=== PATIENT | female | born 1955 | race Caucasian/White ===

== ENCOUNTER → 2017-06-30 | Outpatient (CLI) | payer OTHER ==
[~2017-06-30] MED LIST: ADVIN50/60 INH; ATOR10TA82 PO; CYCL10TA6 PO; LDDP5 TD; LISI-729 PO; MELO-84 PO; PRED-301 PO; PRVIN525X INH; SPRIN/30 INH; TRAM-10 PO; TRAZ50TA35 PO; VNTHFA/IN INH
--- NOTE | 2017-06-30 14:20 | DIAGNOSTIC IMAGING REPORT ---
(CHEST) THORAX WITHOUT CT DOSE: 191.37 mGy.cm HISTORY: Lung nodule R91.1 Pulmonary nodule, leftappt sched 06-01-17 @ 9:00 pt TECHNIQUE: Multiaxial CT images of the chest were performed without contrast. A dose lowering technique was utilized adhering to the principles of ALARA. COMPARISON: 04/14/2016 FINDINGS: Stable emphysematous change throughout both hemithoraces. Stable mild interstitial prominence. Minimal left apical nodularity considered stable. No new or interval findings. No focal infiltrative change. Stable postoperative change upper abdomen the right. Stable linear scarring right base laterally. No new or interval findings. No significant cardiac enlargement mediastinal or hilar adenopathy. IMPRESSION: 1. Stable emphysematous change including minimal unchanging low suspicion nodularity. 2. No further follow-up is suggested. 3. Stable upper abdominal postoperative change The above report was generated using voice recognition software. It may contain grammatical, syntax or spelling errors. Electronically signed by: Mendoza Smith M.D. 06/30/2017 2:18 PM Dictated Date/Time: 06/30/2017 2:15 PM
== END | disposition home or self-care (01) ==
LOC: C.CTS 13:39
PROVIDERS: ATTEND Internal Medicine Pulmonary Disease
DX: R91.1 Solitary pulmonary nodule (principal)

== ENCOUNTER 2021-11-13 10:44 | Inpatient (IN) ==
[2021-11-13] MEDS ORDERED: ALBUTEROL 0.083% NEBU SOLN 3 ML VIAL NEB STA (10:57)
[2021-11-13] MEDS ORDERED: SODIUM CHLORIDE 0.9% 500 ML IV STA (10:57)
--- NOTE | 2021-11-13 11:02 | Emergency Department Note ---
Impression & Plan COPD exacerbation, Acute and chronic respiratory failure with hypercapnia ED Provider Note NAME: GRANT LACY AGE: 66 SEX: F : 1955 ARRIVES VIA: Ambulance INFORMANT: Patient ED PROVIDER(S): Fabian Almonte DO CHIEF COMPLAINT: shortness of breath HPI: Patient is a 66-year-old female who presents the ER for shortness of breath. This started on Wednesday patient. She started Z-Miller on Wednesday. Has been getting significantly worse. Chronically wears 5 L at home secondary to severe COPD. Patient denies any headache or change in vision. No chest pain or belly pain. No nausea, vomiting, or diarrhea. No dysuria, urgency, or frequency. No other exacerbating or remitting factors. ROS: See above HPI for pertinent positives & negatives. A total of 10 systems reviewed and were otherwise negative. PAST MEDICAL HISTORY:See Below PAST SURGICAL HISTORY:See Below FAMILY HISTORY:See Below SOCIAL HISTORY:See Below HOME MEDICATIONS:See Below ALLERGIES:See Below VITALS:See Below PHYSICAL EXAMINATION: GENERAL: Sitting up in bed, alert, moderate distress, answering in one-word answers EYE EXAM: normal conjunctiva. PERRL and EOM's grossly intact. OROPHARYNX: no exudate, no erythema, lips, buccal mucosa, and tongue normal and mucous membranes are dry NECK: supple, no nuchal rigidity, no adenopathy, non-tender LUNGS: Wheezing bilaterally. Normal chest wall mechanics HEART: no murmurs, S1 normal and S2 normal ABDOMEN: abdomen soft, non-tender, normo-active bowel sounds, no masses, no rebound or guarding. UPPER EXTREMITIES: upper extremities are grossly normal. LOWER EXTREMITIES: No pitting edema. Calves are equal bilateral NEURO EXAM: Normal sensorium, cranial nerves II-XII grossly intact, normal speech, no gross weakness of arms, no gross weakness of legs. MEDICAL DECISION MAKING: Patient is a 66-year-old female who presents the ER for shortness of breath. IV was established blood work was obtained. She was only able to speak in one-word answers initially upon arrival. She was given hour-long neb as well as placed on high flow as she refused BiPAP. Labs show no significant leukocytosis. Mild anemia 11. VBG with a CO2 of 100. pH is 7.2. BMP with LFTs bilirubin was unremarkable. Troponin was negative. Pro-Trino normal. Influenza COVID and RSV were negative. Chest x-ray with opacities present. Currently on azithromycin. No change in sputum. Patient was updated bedside discussed with hospitalist admitted for further work-up. Triage Nursing notes reviewed. Limited review of prior medical records performed Vital Signs: reviewed and remarkable for tachycardic and tachypneic Differential diagnosis: ER treatment provided: See below Diagnostics interpreted by me: ECG: Sinus tachycardia rate of 121 Normal axis No PVCs QTC 434 Cardiac Monitoring: An order was placed for continuous cardiac monitoring. The monitor shows a rate of 115 with sinus rhythm. Laboratory studies: As stated above and show below. Imaging studies: Portable AP upright 1 view of the chest as described above Consultation(s): Discussed the hospitalist for further evaluation Procedures: none Critical Care: I have personally spent 32 minutes of critical care time in the direct management of this patient. This includes bedside care, interpretation of diagnostic studies, and testing, discussion with consultants, patient, and family members, and other required patient management activities. This 32 minutes is in excess of all separately billable procedures. Past Med/Surg History Medical History (Updated 11/13/21 @ 17:43 by Fabian Almonte DO) COPD, very severe History of gastroesophageal reflux (GERD) History of hyperlipidemia HTN (hypertension) Pulmonary emphysema Surgical History History of appendectomy History of tonsillectomy History of tubal ligation Family History Father Coronary heart disease Mother Pancreatic cancer Brother Brain tumor Sister Myocardial infarction Social History (Updated 11/13/21 @ 13:28 by dEna Howard PA-C) Smoking Status: Light tobacco smoker Cigarettes Per Day: lifelong smoker- now down to 2 per day; Hx Alcohol Use: No Hx Substance Use: No Preferred Language: [place]ic [place] Department Supervisor Required: No Beliefs That Will Affect Care: None Current Living Situation: Family Current Living Situation Comment: son lives upstairs Feels Safe at Home: Yes Safety Concerns: Feels Safe At This Time Allergies Allergies Allergy/AdvReac Type Severity Reaction Status Date / Time prednisone AdvReac Confusion Verified 11/13/21 13:47 Home Meds Home Medications Medication Instructions Recorded Confirmed aspirin 81 mg tablet,delayed 81 mg PO QAM 05/25/19 11/13/21 release (Adult Low Dose Aspirin) atorvastatin 10 mg tablet 10 mg PO HS 05/25/19 11/13/21 lisinopril 5 mg tablet 5 mg PO HS 05/25/19 11/13/21 loratadine 10 mg capsule 10 mg PO DAILY PRN 05/25/19 11/13/21 trazodone 50 mg tablet 75 mg PO HS 05/25/19 11/13/21 albuterol sulfate 90 mcg/actuation 2 puffs INH QID PRN 05/26/19 11/13/21 aerosol inhaler (Ventolin HFA) meloxicam 15 mg tablet 15 mg PO HS 05/26/19 11/13/21 tiotropium bromide 18 mcg capsule 1 cap INH QAM 05/26/19 11/13/21 with inhalation device (Spiriva with HandiHaler) azithromycin 250 mg tablet 250 mg PO QAM 11/13/21 11/13/21 esomeprazole magnesium 20 mg 20 mg PO QAM 11/13/21 11/13/21 capsule,delayed release fluticasone propionate 230 2 puff INHALATION Q12H 11/13/21 11/13/21 mcg-salmeterol 21 mcg/actuation HFA inhaler multivitamin 1 tab PO DAILY 11/13/21 11/13/21 tramadol 50 mg tablet 50 mg PO Q6H PRN 11/13/21 11/13/21 vitamin B complex 1 cap PO DAILY 11/13/21 11/13/21 zinc 50 mg tablet 220 mg PO DAILY 11/13/21 11/13/21 Previous Rx's Medication Instructions Recorded albuterol sulfate 2.5 mg INH Q4H PRN #540 ml 02/18/21 Results & Data (ED) Vital Signs Vital Signs - 24 hr 11/13/21 10:55 11/13/21 11:09 11/13/21 11:10 Temperature 36.8 C Temperature Source Oral Pulse Rate 130 H Pulse Rate [Left Finger] 106 H 107 H Pulse Rhythm Regular Pulse Strength Normal Respiratory Rate 38 H Respiratory Effort / Characteristics Spontaneous Accessory Muscle Use Labored Pursed Lip Retracting Short of Breath SOB on Exertion Spontaneous Non-Labored Spontaneous Respiratory Depth Retractive Respiratory Pattern Rapid/Shallow Tachypnea Blood Pressure 115/77 Blood Pressure [Right Arm] Blood Pressure Mean 89 Blood Pressure Mean [Right Arm] Blood Pressure Position Sitting Pulse Oximetry 95 100 100 Oxygen Delivery Method Nasal Cannula High Flow Nasal Cannula High Flow Nasal Cannula Oxygen Flow Rate 5 30 30 Fraction of Inspired Oxygen 45 50 Sepsis Recent Fever Within 48 Hours No Sepsis New/Unexplained Change in Mental Status No Sepsis Action Taken by Nursing Physician Notified 11/13/21 11:36 11/13/21 11:47 Temperature Temperature Source Pulse Rate Pulse Rate [Left Finger] 110 H Pulse Rhythm Pulse Strength Respiratory Rate 22 Respiratory Effort / Characteristics Nasal Flaring Retracting SOB on Exertion Respiratory Depth Respiratory Pattern Blood Pressure Blood Pressure [Right Arm] 120/58 L Blood Pressure Mean Blood Pressure Mean [Right Arm] 78 Blood Pressure Position Pulse Oximetry 100 Oxygen Delivery Method High Flow Nasal Cannula Oxygen Flow Rate Fraction of Inspired Oxygen Sepsis Recent Fever Within 48 Hours Sepsis New/Unexplained Change in Mental Status Sepsis Action Taken by Nursing Laboratory Data Result diagrams: 11/13/21 11:00 11/13/21 11:00 Lab Results 11/13/21 11/13/21 11/13/21 Range/Units 11:00 11:00 11:00 WBC 9.10 (4.8-10.8) K/uL RBC 3.73 L (4.2-5.4) M/uL Hgb 11.0 L (12.0-16.0) g/dL Hct 37.4 (37-47) % MCV 100.3 H (80-100) fL MCH 29.5 (25-34) pg MCHC 29.4 L (32-36) g/dL RDW Std Deviation 45.6 (36.4-46.3) fL RDW Coeff of Patricia 12.4 (11.5-14.5) % Plt Count 200 (130-400) K/uL MPV 9.5 (7.4-10.4) fL Immature Gran % (Auto) 0.2 % Neut % (Auto) 76.3 % Lymph % (Auto) 13.4 % [place] % (Auto) 8.6 % Eos % (Auto) 1.3 % Baso % (Auto) 0.2 % Neut # (Auto) 6.94 H (1.4-6.5) K/uL Lymph # (Auto) 1.22 (1.2-3.4) K/uL [place] # (Auto) 0.78 H (0.11-0.59) K/uL Eos # (Auto) 0.12 (0-0.5) K/uL Baso # (Auto) 0.02 (0-0.2) K/uL Immature Gran # (Auto) 0.02 (0.00-0.02) K/uL VBG pH (7.36-7.41) VBG pCO2 (38-50) mmHg VBG pO2 mmHg VBG HCO3 mmol/L VBG O2 Saturation % VBG Base Excess mEq/L Barometric Pressure mm/Hg Sodium 141 (136-145) mmol/L Potassium 3.9 (3.5-5.1) mmol/L Chloride 93 L (98-107) mmol/L Carbon Dioxide 41 H* (21-32) mmol/L Anion Gap 7 (3-11) BUN 13 (6-23) mg/dl Creatinine 0.46 L (0.6-1.2) mg/dl Est Cr Clr Drug Dosing 73.3 ml/min Est GFR ( Amer) 120.1 ml/min Est GFR (Non-Af Amer) 103.7 ml/min BUN/Creatinine Ratio 28.3 H (10-20) Glucose 121 H (70-99(Fasting)) mg/dl Calcium 9.9 (8.5-10.1) mg/dl Total Bilirubin 0.3 (0.2-1.0) mg/dl AST 22 (13-39) U/L ALT 17 (7-52) U/L Alkaline Phosphatase 78 (34-104) U/L Troponin I High Sens 7.0 (0-14) pg/ml Total Protein 7.3 (6.0-8.3) gm/dl Albumin 4.1 (3.4-5.0) gm/dl Globulin 3.2 (2.5-4.0) gm/dl Albumin/Globulin Ratio 1.3 (0.9-2) Lipase 9 L (11-82) U/L Procalcitonin 0.06 (0-0.5) ng/ml SARS-CoV-2 (PCR) (Negative) Influenza Type A (PCR) (Neg) Influenza Type B (PCR) (Neg) RSV (RT-PCR) (Neg) 05/12/22 05/12/22 Range/Units 11:05 11:10 WBC (4.8-10.8) K/uL RBC (4.2-5.4) M/uL Hgb (12.0-16.0) g/dL Hct (37-47) % MCV (80-100) fL MCH (25-34) pg MCHC (32-36) g/dL RDW Std Deviation (36.4-46.3) fL RDW Coeff of Patricia (11.5-14.5) % Plt Count (130-400) K/uL MPV (7.4-10.4) fL Immature Gran % (Auto) % Neut % (Auto) % Lymph % (Auto) % [place] % (Auto) % Eos % (Auto) % Baso % (Auto) % Neut # (Auto) (1.4-6.5) K/uL Lymph # (Auto) (1.2-3.4) K/uL [place] # (Auto) (0.11-0.59) K/uL Eos # (Auto) (0-0.5) K/uL Baso # (Auto) (0-0.2) K/uL Immature Gran # (Auto) (0.00-0.02) K/uL VBG pH 7.23 L (7.36-7.41) VBG pCO2 103 H (38-50) mmHg VBG pO2 28 mmHg VBG HCO3 42 mmol/L VBG O2 Saturation < 60.0 % VBG Base Excess 11.0 mEq/L Barometric Pressure 738.5 mm/Hg Sodium (136-145) mmol/L Potassium (3.5-5.1) mmol/L Chloride (98-107) mmol/L Carbon Dioxide (21-32) mmol/L Anion Gap (3-11) BUN (6-23) mg/dl Creatinine (0.6-1.2) mg/dl Est Cr Clr Drug Dosing ml/min Est GFR ( Amer) ml/min Est GFR (Non-Af Amer) ml/min BUN/Creatinine Ratio (10-20) Glucose (70-99(Fasting)) mg/dl Calcium (8.5-10.1) mg/dl Total Bilirubin (0.2-1.0) mg/dl AST (13-39) U/L ALT (7-52) U/L Alkaline Phosphatase (34-104) U/L Troponin I High Sens (0-14) pg/ml Total Protein (6.0-8.3) gm/dl Albumin (3.4-5.0) gm/dl Globulin (2.5-4.0) gm/dl Albumin/Globulin Ratio (0.9-2) Lipase (11-82) U/L Procalcitonin (0-0.5) ng/ml SARS-CoV-2 (PCR) NEGATIVE (Negative) Influenza Type A (PCR) Negative (Neg) Influenza Type B (PCR) Negative (Neg) RSV (RT-PCR) Negative (Neg) Administered Medications Albuterol (Albut/Ipratrop 3mg/0.5mg Neb 3 Ml Vial) 3 ml NEB Q4R JAYNE; Protocol Stop: 12/13/21 14:59 Last Admin: 11/13/21 15:46 Dose: 3 ml Documented by: [id number] Budesonide (Budesonide 0.5 Mg/2 Ml Vial (Pulmicort)) 0.5 mg NEB BIDR JAYNE Stop: 12/13/21 14:50 Last Admin: 11/13/21 15:57 Dose: Not Given Documented by: [id number] Formoterol Fumarate (Formoterol 20 Mcg/2 Ml Vial) 20 mcg NEB BID JYANE Stop: 12/13/21 14:50 Last Admin: 11/13/21 15:57 Dose: Not Given Documented by: [id number] Discontinued Medications Albuterol (Albuterol 0.083% Nebu Soln 3 Ml Vial) 2.5 mg NEB NOW STA; Protocol Stop: 11/13/21 10:58 Last Admin: 11/13/21 11:10 Dose: 2.5 mg Documented by: [id number] Albuterol (Albut/Ipratrop 3mg/0.5mg Neb 3 Ml Vial) Confirm Administered Dose 3 ml .ROUTE .STK-MED ONE Stop: 11/13/21 15:46 Last Admin: 11/13/21 15:50 Dose: Not Given Documented by: [id number] Sodium Chloride (Nss) 500 mls @ 999 mls/hr IV .Q31M STA Stop: 11/13/21 11:27 Last Infusion: 11/13/21 14:56 Dose: 0 mls/hr Documented by: [id number] Admin: 11/13/21 11:46 Dose: 999 mls/hr Documented by: [id number] Methylprednisolone (Methylprednisolone 40 Mg/Ml Vial) 40 mg IV TID JAYNE Stop: 12/13/21 13:59 Last Admin: 11/13/21 13:55 Dose: 40 mg Documented by: [id number] Tramadol HCl (Tramadol Hcl 50 Mg Tablet) 50 mg PO NOW STA Stop: 11/13/21 13:06 Last Admin: 11/13/21 13:39 Dose: 50 mg Documented by: [id number] Imaging Data Radiologist's Impression: Chest X-Ray 11/13/21 10:57 SINGLE VIEW CHEST CLINICAL HISTORY: Atypical chest pain. Dyspnea. FINDINGS: An AP, portable, upright chest radiograph is compared to study dated 12/16/2017 and correlated with chest CT dated 07/01/2020. The examination is degraded by portable technique and apical lordotic positioning. The cardiomediastinal silhouette is unremarkable noting atherosclerotic calcificatio n of the thoracic aorta. Enlargement of the central pulmonary arteries suggests pulmonary artery hypertension. Advanced emphysema and chronic interstitial thickening is similar to previous. Airspace opacities are present at both lung bases. Foci of parenchymal scarring are seen throughout both lungs. No large pleural effusion or pneumothorax is seen. The skeletal structures are osteopenic. There is chronic posttraumatic deformity of the left clavicle. Calcific tendinopathy is noted in the left shoulder. IMPRESSION: 1. Advanced emphysema. 2. Airspace opacities are present both lung bases. This could represent scarri ng/atelectasis versus a mild infectious/inflammatory pneumonitis. Clinical correlation will be required and radiographic follow-up to resolution is recommended. 3. Additional findings as above. ACT 112: Negative or not required by law. Electronically signed by: Solo Dooley M.D. 11/13/2021 11:45 AM Discharge Plan Visit Data Chief Complaint: Shortness of Breath/Dyspnea Stated Complaint: SOB ED Provider: Fabian Almonte Discharge Problem: COPD exacerbation, Acute and chronic respiratory failure with hypercapnia Patient Disposition: Admitted As Inpatient Discharge Instructions Interventions: ED Discharge Assessment Last Done: 11/13/21 14:21
[2021-11-13 11:36] LABS: HCO3 VBG 42 mmol/L; PCO2 VBG 103 mmHg (38-50); PO2 VBG 28 mmHg; pH VBG 7.23 (7.36-7.41)
[2021-11-13 11:39] LABS: Oxygen Saturation VBG < 60.0 %
--- NOTE | 2021-11-13 11:47 | XRay Report ---
SINGLE VIEW CHEST CLINICAL HISTORY: Atypical chest pain. Dyspnea. FINDINGS: An AP, portable, upright chest radiograph is compared to study dated 12/16/2017 and correlat ed with chest CT dated 07/01/2020. The examination is degraded by portable technique and apical lordo tic positioning. The cardiomediastinal silhouette is unremarkable noting atherosclerotic calcificatio n of the thoracic aorta. Enlargement of the central pulmonary arteries suggests pulmonary artery hype rtension. Advanced emphysema and chronic interstitial thickening is similar to previous. Airspace opa cities are present at both lung bases. Foci of parenchymal scarring are seen throughout both lungs. N o large pleural effusion or pneumothorax is seen. The skeletal structures are osteopenic. There is ch ronic posttraumatic deformity of the left clavicle. Calcific tendinopathy is noted in the left should er. IMPRESSION: 1. Advanced emphysema. 2. Airspace opacities are present both lung bases. This could represent scarring/atelectasis versus a mild infectious/inflammatory pneumonitis. Clinical correlation will be required and radiographic fol low-up to resolution is recommended. 3. Additional findings as above. ACT 112: Negative or not required by law. Electronically signed by: Solo Dooley M.D. 11/13/2021 11:45 AM
[2021-11-13 12:05] LABS: Basophils # (auto) 0.02 K/uL (0-0.2); Basophils % (auto) 0.2 %; Eosinophils # (auto) 0.12 K/uL (0-0.5); Eosinophils % (auto) 1.3 %; Hematocrit (blood only) 37.4 % (37-47); Immature Granulocytes # (auto) 0.02 K/uL (0.00-0.02); Immature Granulocytes % (auto) 0.2 %; Lymphocytes # (auto) 1.22 K/uL (1.2-3.4); Lymphocytes % (auto) 13.4 %; Mean Corpuscular Hemoglobin 29.5 pg (25-34); Mean Corpuscular Hgb Conc 29.4 g/dL (32-36); Mean Corpuscular Volume 100.3 fL (80-100); Mean Platelet Volume 9.5 fL (7.4-10.4); Monocytes # (auto) 0.78 K/uL (0.11-0.59); Monocytes % (auto) 8.6 %; Neutrophils # (auto) 6.94 K/uL (1.4-6.5); Neutrophils % (auto) 76.3 %; Platelet Count 200 K/uL (130-400); RDW Coefficient of Variation 12.4 % (11.5-14.5); RDW Standard Deviation 45.6 fL (36.4-46.3); Red Blood Count 3.73 M/uL (4.2-5.4)
[2021-11-13 12:35] LABS: Influenza A virus by PCR Negative (Neg); Influenza B virus by PCR Negative (Neg); RSV by PCR Negative (Neg); SARS CoV2 RNA(COVID-19) InHosp NEGATIVE (Negative)
[2021-11-13 12:43] LABS: Albumin Globulin Ratio 1.3 (0.9-2); Albumin Level 4.1 gm/dl (3.4-5.0); BUN Creatinine Ratio 28.3 (10-20); Bilirubin,Total 0.3 mg/dl (0.2-1.0); Calcium 9.9 mg/dl (8.5-10.1); Creatinine Clr Calc Pharmacy 73.3 ml/min; Est GFR (African American) 120.1 ml/min; Est GFR (Non-African American) 103.7 ml/min; Globulin 3.2 gm/dl (2.5-4.0); Potassium 3.9 mmol/L (3.5-5.1); Total Protein 7.3 gm/dl (6.0-8.3)
[2021-11-13] MEDS ORDERED: traMADol HCL 50 MG TABLET PO STA (13:05)
--- NOTE | 2021-11-13 13:34 | History & Physical Report ---
Date of Service November 13, 2021 Assessment & Plan (1) Acute and chronic respiratory failure with hypercapnia: (2) Acute respiratory acidosis: (3) COPD exacerbation: (4) HTN (hypertension): Plan: This is a 66-year-old female who has significant past medical history of chronic respiratory failure with hypercarbia on 5 L of O2, severe COPD emphysema time, T2DM, HTN, HLD, GERD, tobacco abuse who presents ED secondary to worsening shortness of breath x5 days. Acute on chronic respiratory failure with hypercapnia Acute respiratory acidosis COPD exacerbation Admit to PCU Obtain ABG, chest CT consult Pulm, pt established with [facility] IV Levaquin 500 mg daily IV Solu-Medrol 40 mg 3 times daily Budesonide neb, formoterol neb DuoNeb 4 times daily Incentive spirometry, flutter valve Obtain sputum culture Currently patient on HFNC, she confirms DNR/DNI, currently refusing bipap therapy, discussed with pt regarding acidosis will repeat ABG now, if worsening or no change will try to encourage bipap therapy HTN continue lisinopril T2DM last a1c 5.6 not on any hypoglycemics question if true t2dm vs pre dm will monitor accuchecks with steroid use, will hold coverage for now if consistently elevated will add coverage HLD continue statin DVT ppx: SQ Heparin bid DNR/DNI, pt currently refusing bipap therapy, repeat abg and will re address with patient PCP: Jono Dispo: PCU, likely to remain hospitalized > 24hrs Pt was seen and examined in collaboration with Dr. Temple, please see addendum History of Present Illness Chief Complaint: Worsening shortness of breath x5 days. Primary Care Provider: Damir De La Cruz MD This is a 66-year-old female who has significant past medical history of chronic respiratory failure with hypercarbia on 5 L of O2, severe COPD emphysema time, T2DM, HTN, HLD, GERD, tobacco abuse who presents ED secondary to worsening shortness of breath x5 days. She has chronic shortness of breath with exertion at baseline due to COPD. She has been using her Advair twice daily and at baseline only needs albuterol once weekly. Over the past 5 to 6 days she has had worsening shortness of breath with exertion and at rest, productive cough of brown purulent sputum, wheezing and today difficulty speaking secondary to shortness of breath. She has been monitoring her temperature daily and denies any documented fevers. She further denies any chills, sweats, lightheadedness, dizziness, chest pain, palpitations, hemoptysis, nausea, vomiting, abdominal pain, change in her bowel or urinary habits. She admits to a decrease in appetite secondary to inability to eat due to breathing. She has been using her albuterol nebulizer at least 2-3 times daily. She did start azithromycin on Wednesday and has had 2 total doses. Typically she states after taking antibiotic for 2 days usually her symptoms are improved and she continues to worsen. In ED patient was found to have an acute respiratory acidosis with a pH of 7.23 and a CO2 of 103. She is a known CO2 retainer and it was mentating clearly. She is a DNR and DNI in ED refused BiPAP therapy. Her CBC revealed low hemoglobin 11.0 but otherwise mostly unremarkable. Her CMP revealed chloride 93, CO2 41, glucose 121 and negative SARS-CoV-2 and influenza. Her chest x-ray was consistent with advanced emphysema and airspace opacities bibasilarly. In route she did receive IV steroids. In ED she was started on DuoNeb as well as placed on high flow nasal cannula to maintain oxygen saturation due to BiPAP refusal. Allergies Allergy/AdvReac Type Severity Reaction Status Date / Time prednisone AdvReac Confusion Verified 11/13/21 13:47 Home Medications Medication Instructions Recorded Confirmed Type aspirin 81 mg tablet,delayed 81 mg PO QAM 05/25/19 11/13/21 History release (Adult Low Dose Aspirin) atorvastatin 10 mg tablet 10 mg PO HS 05/25/19 11/13/21 History lisinopril 5 mg tablet 5 mg PO HS 05/25/19 11/13/21 History loratadine 10 mg capsule 10 mg PO DAILY PRN 05/25/19 11/13/21 History trazodone 50 mg tablet 75 mg PO HS 05/25/19 11/13/21 History albuterol sulfate 90 mcg/actuation 2 puffs INH QID PRN 05/26/19 11/13/21 History aerosol inhaler (Ventolin HFA) meloxicam 15 mg tablet 15 mg PO HS 05/26/19 11/13/21 History tiotropium bromide 18 mcg capsule 1 cap INH QAM 05/26/19 11/13/21 History with inhalation device (Spiriva with HandiHaler) albuterol sulfate 2.5 mg INH Q4H PRN #540 ml 02/18/21 11/13/21 Rx azithromycin 250 mg tablet 250 mg PO QAM 11/13/21 11/13/21 History esomeprazole magnesium 20 mg 20 mg PO QAM 11/13/21 11/13/21 History capsule,delayed release fluticasone propionate 230 2 puff INHALATION Q12H 11/13/21 11/13/21 History mcg-salmeterol 21 mcg/actuation HFA inhaler multivitamin 1 tab PO DAILY 11/13/21 11/13/21 History tramadol 50 mg tablet 50 mg PO Q6H PRN 11/13/21 11/13/21 History vitamin B complex 1 cap PO DAILY 11/13/21 11/13/21 History zinc 50 mg tablet 220 mg PO DAILY 11/13/21 11/13/21 History Past Med/Surg History Medical History (Updated 11/13/21 @ 13:31 by Edna Howard PA-C) COPD, very severe History of gastroesophageal reflux (GERD) History of hyperlipidemia HTN (hypertension) Pulmonary emphysema Surgical History History of appendectomy History of tonsillectomy History of tubal ligation Family History Father Coronary heart disease Mother Pancreatic cancer Brother Brain tumor Sister Myocardial infarction Social History (Updated 11/13/21 @ 13:28 by Edna Howard PA-C) Smoking Status: Former smoker Cigarettes Per Day: 4-5; Hx Alcohol Use: No Hx Substance Use: No Preferred Language: Kinyarwanda Feels Safe at Home: Yes Review of Systems Review of Systems: All systems reviewed & are unremarkable except as noted in HPI & below Physical Exam Physical Exam: Constitutional: Cachectic, female, lying in position, appears age, vitals as above, tachypneic, answers questions appropriately Head: Normocephalic, Atraumatic Eyes: PERRL, conjunctivae normal, anicteric sclerae ENMT: external ear and nose normal, oropharynx normal Neck: trachea midline, no thyromegaly normal visual inspection Respiratory: Increased respiratory effort, distant breath sounds throughout, decreased breath sounds at bases, no wheezes, rales or rhonchi noted. Audible wet cough. Purulent sputum visualized. No accessory muscle use Cardiovascular: RRR, no murmur, no edema Vessels: no JVD or carotid bruit Chest: normal inspection of chest Abdomen: normal bowel sounds, soft, nontender, no hepatosplenomegaly Musculoskeletal: no cyanosis or clubbing, extremities motor strength 5/5 Skin: no rashes, warm and dry normal turgor Neurologic: PERRL, EOMI, accommodation nl, no face palsy, no dysarthria CN's II-XI intact bilaterally and moves all extremities Psychiatric: A+Ox3, euthymic affect Lymphatic: no cervical or axillary lymphadenopathy : deferred Results & Data Results & [facility] ([facility]) Vital Signs (Past 12 Hours) Vital Signs Temp Pulse Pulse Resp BP BP Pulse Ox 11/13/21 13:17 89 20 100 11/13/21 11:47 110 H 22 120/58 L 11/13/21 11:36 100 11/13/21 11:10 107 H 22 100 11/13/21 11:09 106 H 22 100 11/13/21 10:55 36.8 C 130 H 38 H 115/77 95 Diagnostic Findings Chest X-Ray 11/13/21 10:57 SINGLE VIEW CHEST CLINICAL HISTORY: Atypical chest pain. Dyspnea. FINDINGS: An AP, portable, upright chest radiograph is compared to study dated 12/16/2017 and correlated with chest CT dated 07/01/2020. The examination is degraded by portable technique and apical lordotic positioning. The cardiomediastinal silhouette is unremarkable noting atherosclerotic calcification of the thoracic aorta. Enlargement of the central pulmonary arteries suggests pulmonary artery hypertension. Advanced emphysema and chronic interstitial thickening is similar to previous. Airspace opacities are present at both lung bases. Foci of parenchymal scarring are seen throughout both lungs. No large pleural effusion or pneumothorax is seen. The skeletal structures are osteopenic. There is chronic posttraumatic deformity of the left clavicle. Calcific tendinopathy is noted in the left shoulder. IMPRESSION: 1. Advanced emphysema. 2. Airspace opacities are present both lung bases. This could represent scarring/atelectasis versus a mild infectious/inflammatory pneumonitis. Clinical correlation will be required and radiographic follow-up to resolution is recomme nded. 3. Additional findings as above. ACT 112: Negative or not required by law. Electronically signed by: Solo Dooley M.D. 11/13/2021 11:45 AM Medications Administered Medication List Discontinued Medications Albuterol (Albuterol 0.083% Nebu Soln 3 Ml Vial) 2.5 mg NEB NOW STA; Protocol Stop: 11/13/21 10:58 Last Admin: 11/13/21 11:10 Dose: 2.5 mg Documented by: [id number] Sodium Chloride (Nss) 500 mls @ 999 mls/hr IV .Q31M STA Stop: 11/13/21 11:27 Last Admin: 11/13/21 11:46 Dose: 999 mls/hr Documented by: [id number] ECG Rate (beats per minute): 121 Rhythm: sinus tachycardia Additional Comments: QTC 434ms COVID-19 Results Results COVID-19 Adm Lab Results: RBC 3.73 M/uL (4.2-5.4) L 11/13/21 WBC 9.10 K/uL (4.8-10.8) 11/13/21 Hgb 11.0 g/dL (12.0-16.0) L 11/13/21 Hct 37.4 % (37-47) 11/13/21 Plt Count 200 K/uL (130-400) 11/13/21 Neutrophils (%) (Auto) 76.3 % 11/13/21 Lymphocytes (%) (Auto) 13.4 % 11/13/21 Monocytes # (Auto) 0.78 K/uL (0.11-0.59) H 11/13/21 Eosinophils # (Auto) 0.12 K/uL (0-0.5) 11/13/21 Immature Granulocyte % (Auto) 0.2 % 11/13/21 Neutrophils # (Auto) 6.94 K/uL (1.4-6.5) H 11/13/21 Lymphocytes # (Auto) 1.22 K/uL (1.2-3.4) 11/13/21 Monocytes # (Auto) 0.78 K/uL (0.11-0.59) H 11/13/21 Eosinophils # (Auto) 0.12 K/uL (0-0.5) 11/13/21 Basophils # (Auto) 0.02 K/uL (0-0.2) 11/13/21 Immature Granulocyte # (Auto) 0.02 K/uL (0.00-0.02) 11/13/21 Na 141 mmol/L (136-145) 11/13/21 K 3.9 mmol/L (3.5-5.1) 11/13/21 Cl 93 mmol/L (98-107) L 11/13/21 CO2 41 mmol/L (21-32) H* 11/13/21 Anion Gap 7 (3-11) 11/13/21 BUN 13 mg/dl (6-23) 11/13/21 Creatinine 0.46 mg/dl (0.6-1.2) L 11/13/21 BUN/Creatinine Ratio 28.3 (10-20) H 11/13/21 Glucose Level 121 mg/dl (70-99(Fasting)) H 11/13/21 Ca 9.9 mg/dl (8.5-10.1) 11/13/21 Total Bilirubin 0.3 mg/dl (0.2-1.0) 11/13/21 AST/SGOT 22 U/L (13-39) 11/13/21 ALT/SGPT 17 U/L (7-52) 11/13/21 Alkaline Phosphatase 78 U/L (34-104) 11/13/21 Total Protein 7.3 gm/dl (6.0-8.3) 11/13/21 Albumin 4.1 gm/dl (3.4-5.0) 11/13/21 Globulin 3.2 gm/dl (2.5-4.0) 11/13/21 Albumin/Globulin Ratio 1.3 (0.9-2) 11/13/21 Procalcitonin Pending 11/13/21 COVID-19 PCR NEGATIVE (Negative) 11/13/21 Influenza Virus Type A (PCR) Negative (Neg) 11/13/21 Influenza Virus Type B (PCR) Negative (Neg) 11/13/21 Chest X-Ray 11/13/21 Code Status & VTE Plan Code Status DNR/DNI VTE Prophylaxis Plan VTE Prophylaxis will be ordered: Yes Supervising Physician Co-Signing Physician Notes Patient seen and examined independently at bedside. Chart reviewed, case discussed with Edna NORRIS and agree with the documentation above. In summary, this is a patient with COPD on 5 L of home oxygen at baseline, tobacco abuse presented to the ED with shortness of breath for the past 5 days with increased sputum expectoration. States this is her first hospitalization for COPD exacerbation. Was a heavy smoker, now smokes 3 cigarettes per day (states she takes her oxygen off when she smokes; discussed about complete cessation given her severe emphysema). Uses inhalers daily, neulizers seldom but for the past week she has been using twice a day nebulizer. She hasn't seen Dr Jasso for a while now. She was given nebs and iv solumedrol by EMS and was put on HFNC in the ED. She declined BIPAP due to claustrophobia from mask. She is DNR/DNI. She received more nebs and solumedrol in ED and had significantly improved by my e ncounter. She was conversing in full sentences without any issues (previously only words per chart review). Afebrile, hemodynamically stable, AAOx3, conversing well, no tachypnea or respiratory distress noted, no increased work of breathing. Chest with decreased breath sounds but no wheezes appreciated. Tachycardia improving. No edema. Abdomen benign. Admit for COPD exacerbation. Agree with iv solumedrol, empiric levaquin, nebs, mucinex, chest physiotherapy. Follow up on sputum clx. Follow up on CT chest. Follow up on ABG- she seems to be a chronic CO2 retainer per prior ABG 12/2017 which showed CO2 60 on room air. Consider BIPAP if increased work of breathing or AMS or significant CO2 retention. Wean down oxygen as tolerated. Can likely wean down steroids to po prednisone by tomorrow. Rest as per the note above.
[2021-11-13 14:13] LABS: Base Excess ABG 12.4 mEq/L (-9-1.8); HCO3 ABG 40 mmol/L (19-24); Oxygen Saturation ABG 94.7 % (90-95); PCO2 ABG 67 mmHg (35-46); PO2 ABG 74 mmHg (80-95); pH ABG 7.39 (7.35-7.45)
[2021-11-13 14:14] LABS: Allen Test Pos (Pos)
[2021-11-13] MEDS ORDERED: ONDANSETRON INJ 2 MG/ML 2 ML VIAL IV PRN (14:51)
[2021-11-13] MEDS ORDERED: ALUMINUM/MAGNESIUM SUSP 30 ML UDC PO PRN (14:51)
[2021-11-13] MEDS ORDERED: ACETAMINOPHEN 325 MG TAB PO PRN (14:51)
[2021-11-13] MEDS ORDERED: POLYETHYLENE (MIRALAX) 17 GM PACK PO PRN (14:51)
[2021-11-13] MEDS ORDERED: GLUCOSE 40% GEL 15 GM TUBE PO PRN (14:51)
[2021-11-13] MEDS ORDERED: traZODone HCL 50 MG TAB PO PRN (14:51)
[2021-11-13] MEDS ORDERED: GLUCOSE 10 TABS/TUBE PO PRN (14:51)
[2021-11-13] MEDS ORDERED: DEXTROSE 50% 50 ML SYRINGE IV PRN (14:51)
[2021-11-13] MEDS ORDERED: MAGNESIUM HYDROXIDE SUSP 30 ML UDC PO PRN (14:51)
[2021-11-13] MEDS ORDERED: CARBOHYDRATES FOR HYPOGLYCEMIA PO PRN (14:51)
[2021-11-13] MEDS ORDERED: GLUCAGON FOR INJ 1 MG VIAL SQ PRN (14:51)
[2021-11-13] MEDS ORDERED: ALBUT/IPRATROP 3MG/0.5MG NEB 3 ML VIAL ONE (15:45)
[2021-11-13] MEDS: ALBUT/IPRATROP 3MG/0.5MG NEB 3 ML VIAL NEB SCH ×3 (15:46→22:13)
[2021-11-13] MEDS: FORMOTEROL 20 MCG/2 ML VIAL NEB SCH ×2 (15:57→19:42)
[2021-11-13] MEDS: BUDESONIDE 0.5 MG/2 ML VIAL (PULMICORT) NEB SCH ×2 (15:57→19:41)
[2021-11-13] MEDS: levoFLOXacin/D5W 500 MG/100 ML BAG IV SCH (18:02)
[2021-11-13] MEDS: guaiFENesin 600 MG TABCR PO SCH (21:02)
[2021-11-13] MEDS: methylPREDNISolone 40 MG in SYRINGE 0 ML IV SCH (21:02)
[2021-11-13] MEDS: HEPARIN SOD 5,000 UNIT/0.5 ML VIAL SQ SCH (21:03)
[2021-11-13] MEDS: traZODone HCL 50 MG TAB PO SCH (21:12)
[2021-11-14] MEDS: ALBUT/IPRATROP 3MG/0.5MG NEB 3 ML VIAL NEB SCH ×6 (02:41→22:13)
[2021-11-14] MEDS: BUDESONIDE 0.5 MG/2 ML VIAL (PULMICORT) NEB SCH ×2 (07:02→19:29)
[2021-11-14] MEDS: FORMOTEROL 20 MCG/2 ML VIAL NEB SCH ×2 (07:04→19:29)
[2021-11-14 07:59] LABS: Hematocrit (blood only) 37.9 % (37-47); Hemoglobin 11.5 g/dL (12.0-16.0); Immature Granulocytes # (auto) 0.02 K/uL (0.00-0.02); Immature Granulocytes % (auto) 0.2 %; Lymphocytes % (auto) 4.8 %; Mean Corpuscular Hemoglobin 29.8 pg (25-34); Mean Corpuscular Hgb Conc 30.3 g/dL (32-36); Mean Corpuscular Volume 98.2 fL (80-100); Mean Platelet Volume 9.1 fL (7.4-10.4); Monocytes # (auto) 0.67 K/uL (0.11-0.59); Neutrophils # (auto) 7.33 K/uL (1.4-6.5); Platelet Count 203 K/uL (130-400); RDW Coefficient of Variation 12.1 % (11.5-14.5); RDW Standard Deviation 42.7 fL (36.4-46.3); Red Blood Count 3.86 M/uL (4.2-5.4); White Blood Count 8.42 K/uL (4.8-10.8)
[2021-11-14 08:26] LABS: Albumin Globulin Ratio 1.3 (0.9-2); Albumin Level 4.1 gm/dl (3.4-5.0); BUN Creatinine Ratio 31.4 (10-20); Bilirubin,Total 0.2 mg/dl (0.2-1.0); Creatinine Clr Calc Pharmacy 61.8 ml/min; Est GFR (African American) 116.1 ml/min; Est GFR (Non-African American) 100.2 ml/min; Globulin 3.1 gm/dl (2.5-4.0); Magnesium 1.9 mg/dl (1.7-2.4); Potassium 4.4 mmol/L (3.5-5.1); Total Protein 7.2 gm/dl (6.0-8.3)
--- NOTE | 2021-11-14 08:35 | CT Scan Report ---
CT chest diagnostic wo con CLINICAL HISTORY: copd TECHNIQUE: Multidetector row helical CT of the chest was performed. Coronal and sagittal reformations were obtained. Automated dose lowering techniques and/or adjustment according to patient size were u tilized for this exam. CT DOSE: 184.08 mGy.cm Comparison: Comparison is made to CT chest 07/01/2020 FINDINGS: Lungs and pleura: Severe emphysematous changes are seen. A few foci of scarring are seen most promine ntly a 13 mm focus in the right upper lobe (series 4 image 35). Heart and pericardium: Heart size is normal. No pericardial effusion. Vessels: Unremarkable. Mediastinum and catalina: Subcentimeter lymph nodes are seen. Chest wall and lower neck: Cachexia is noted. Abdomen: Surgical clips are seen about the right kidney. Bones: Degenerative changes in the thoracic spine. IMPRESSION: Severe emphysematous changes and scarring compatible with history of COPD without acute abnormalities . ACT 112: Negative or not required by law. Electronically signed by: Eric Davidson M.D. 11/14/2021 8:33 AM
[2021-11-14] MEDS ORDERED: NON-FORMULARY MEDICATION (Zinc 50 mg Tablet) PO SCH (09:00)
[2021-11-14] MEDS: MULTIVITAMIN TAB PO SCH (09:44)
[2021-11-14] MEDS: ASPIRIN 81 MG ECTAB PO SCH (09:44)
[2021-11-14] MEDS: VITAMIN B COMPLEX TAB PO SCH (09:44)
[2021-11-14] MEDS: ATORVASTATIN 10 MG TAB PO SCH (09:44)
[2021-11-14] MEDS: MELOXICAM 7.5 MG TAB PO SCH (09:44)
[2021-11-14] MEDS: LORATADINE 10 MG TAB PO SCH (09:44)
[2021-11-14] MEDS: guaiFENesin 600 MG TABCR PO SCH ×2 (09:45→20:20)
[2021-11-14] MEDS: ZINC SULFATE 220 MG CAPSULE PO SCH (09:45)
[2021-11-14] MEDS: HEPARIN SOD 5,000 UNIT/0.5 ML VIAL SQ SCH ×2 (09:45→20:19)
[2021-11-14] MEDS: PANTOprazole 40 MG TAB PO SCH (09:45)
[2021-11-14] MEDS: lisinopril 5 MG TAB PO SCH (09:45)
[2021-11-14] MEDS: methylPREDNISolone 40 MG in SYRINGE 0 ML IV SCH ×3 (09:46→20:19)
[2021-11-14 10:17] LABS: Estimated Average Glucose 111 mg/dl; Hemoglobin A1C 5.5 % (4.5-5.6)
--- NOTE | 2021-11-14 11:06 | Pulmonary Consultation ---
Date of Consultation November 14, 2021 Assessment & Plan (1) COPD exacerbation: Continue with levofloxacin and IV steroids for today. Can transition to p.o. prednisone tomorrow at a dose of 40 mg daily. Continue Pulmicort and Perforomist. Would recommend switching her to Pulmicort and Perforomist as an outpatient with the addition of a Spiriva Respimat. She previously completed pulmonary rehab. Complete smoking cessation is advised. Patient notes she smokes 1 to 2 cigarettes/day. She has an extensive smoking history. She has a history of severe air trapping based on her PFTs from before. She may potentially be a candidate for bronchoscopic lung volume reduction as an outpatient. She will need updated PFTs. Incentive spirometry and flutter valve ordered. (2) Acute and chronic respiratory failure with hypercapnia: Patient would benefit from noninvasive ventilator such as trilogy given her chronic hypercapnic respiratory failure. She is apprehensive about starting BiPAP or noninvasive ventilation. We will try to get her adjusted to BiPAP while she is an inpatient and see how she responds. I discussed this with her bedside nurse and respiratory therapy. (3) Hypoxemia: Continue supplemental oxygen to maintain saturations of 88 to 92%. Wean oxygen as able. Thank you for the consultation. We will continue to follow along with you. History of Present Illness Attending Physician: Kika Saleh MD History of Present Illness 66-year-old female with a past medical history of COPD (FEV1 21%, DLCO 32% 11/15/2018) presenting to the hospital due to increasing shortness of breath. Patient notes cough and dark sputum. She denies any hemoptysis. Her appetite has been poor. She notes increased work of breathing with doing daily activities and walking a few steps. She is currently on 5 L of oxygen which is at her baseline. She is receiving methylprednisolone 40 mg 3 times daily and levofloxacin 500 mg daily. I reviewed the CT of her chest from ABG consistent with which revealed severe emphysematous change and scarring. Procalcitonin on admission was negative at 0.06. No significant leukocytosis seen. ABG completed yesterday revealed acute on chronic hypercapnic respiratory failure with a PCO2 of 67. Patient was trialed on BiPAP, but refused due to anxiety. She is on Advair and Spiriva as an outpatient. She denies any fevers, chills or night sweats. Allergies Allergy/AdvReac Type Severity Reaction Status Date / Time prednisone AdvReac Confusion Verified 11/13/21 13:47 Home Medications Medication Instructions Recorded Confirmed Type aspirin 81 mg tablet,delayed 81 mg PO QAM 05/25/19 11/13/21 History release (Adult Low Dose Aspirin) atorvastatin 10 mg tablet 10 mg PO HS 05/25/19 11/13/21 History lisinopril 5 mg tablet 5 mg PO HS 05/25/19 11/13/21 History loratadine 10 mg capsule 10 mg PO DAILY PRN 05/25/19 11/13/21 History trazodone 50 mg tablet 75 mg PO HS 05/25/19 11/13/21 History albuterol sulfate 90 mcg/actuation 2 puffs INH QID PRN 05/26/19 11/13/21 History aerosol inhaler (Ventolin HFA) meloxicam 15 mg tablet 15 mg PO HS 05/26/19 11/13/21 History tiotropium bromide 18 mcg capsule 1 cap INH QAM 05/26/19 11/13/21 History with inhalation device (Spiriva with HandiHaler) albuterol sulfate 2.5 mg INH Q4H PRN #540 ml 02/18/21 11/13/21 Rx azithromycin 250 mg tablet 250 mg PO QAM 11/13/21 11/13/21 History esomeprazole magnesium 20 mg 20 mg PO QAM 11/13/21 11/13/21 History capsule,delayed release fluticasone propionate 230 2 puff INHALATION Q12H 11/13/21 11/13/21 History mcg-salmeterol 21 mcg/actuation HFA inhaler multivitamin 1 tab PO DAILY 11/13/21 11/13/21 History tramadol 50 mg tablet 50 mg PO Q6H PRN 11/13/21 11/13/21 History vitamin B complex 1 cap PO DAILY 11/13/21 11/13/21 History zinc 50 mg tablet 220 mg PO DAILY 11/13/21 11/13/21 History Patient History Medical History (Updated 11/13/21 @ 17:43 by Fabian Almonte DO) COPD, very severe History of gastroesophageal reflux (GERD) History of hyperlipidemia HTN (hypertension) Pulmonary emphysema Surgical History History of appendectomy History of tonsillectomy History of tubal ligation Family History Father Coronary heart disease Mother Pancreatic cancer Brother Brain tumor Sister Myocardial infarction Social History (Updated 11/13/21 @ 13:28 by Edna Howard PA-C) Smoking Status: Light tobacco smoker Cigarettes Per Day: lifelong smoker- now down to 2 per day; Hx Alcohol Use: No Hx Substance Use: No Preferred Language: Marshallese [employer] Required: No Beliefs That Will Affect Care: None Current Living Situation: Family Current Living Situation Comment: son lives upstairs Feels Safe at Home: Yes Safety Concerns: Feels Safe At This Time Review of Systems Review of Systems: All systems reviewed & are unremarkable except as noted in HPI & below Physical Exam Constitutional: + ill appearing, + cachectic, + physical limitations and + frail appearing Eyes: PERRL, conjunctivae normal, anicteric sclerae ENMT: external ear and nose normal, oropharynx normal Neck: trachea midline, no thyromegaly Respiratory: + retractions, + uses accessory muscles, + abnormal respiratory pattern and + tachypneic Auscultation: + diminished lung sounds and + abnormal I/E ratio Cardiovascular: Heart Sounds: normal S1 and normal S2; no murmur Extremities: no edema Musculoskeletal: no cyanosis or clubbing, extremities motor strength 5/5 Skin: no rashes, warm and dry Neurologic: PERRL, EOMI, accommodation nl, no face palsy, no dysarthria Psychiatric: Orientation: alert and oriented x 3 Mood: + depressed mood Results & Data Results & Data ([facility]) Vital Signs (Past 12 Hours) Vital Signs Temp Pulse Pulse Resp BP Pulse Ox 11/14/21 08:26 36.7 C 110 H 24 144/69 H 96 11/14/21 07:04 94 H 22 100 11/14/21 04:15 36.7 C 94 H 18 120/69 100 11/14/21 00:19 99 H 11/13/21 23:52 37.1 C 91 H 18 115/57 L 94 PG Care Time/CCT Total # of Minutes Spent Total Time Spent with Patient: Total time spent is greater than 50% in coordination of care (as documented) at patient's floor/unit and/or counseling patient: Coding Level of Care Code 41613 Initial Inpt Care Lvl 3 Diagnoses COPD exacerbation J44.1 Acute and chronic respiratory failure with hypercapnia J96.22 Hypoxemia R09.02
[2021-11-14] MEDS: traMADol HCL 50 MG TABLET PO PRN ×2 (12:33→20:22)
--- NOTE | 2021-11-14 12:58 | Hospitalist Progress Note ---
Date of Service November 14, 2021 Assessment & Plan (1) Acute and chronic respiratory failure with hypercapnia: (2) Acute respiratory acidosis: (3) COPD exacerbation: (4) HTN (hypertension): Plan: This is a 66-year-old female who has significant past medical history of chronic respiratory failure with hypercarbia on 5 L of O2, severe COPD emphysema time, T2DM, HTN, HLD, GERD, tobacco abuse who presents ED secondary to worsening shortness of breath x5 days. Acute on chronic respiratory failure with hypercapnia Acute respiratory acidosis COPD exacerbation ABG showed high CO2 of [address] of the chest showed severe emphysematous changes and scarring compatible with history of COPD without any acute abnormalities Appreciate pulmonary input and recommendation IV Levaquin 500 mg daily IV Solu-Medrol 40 mg 3 times daily and will change to oral prednisone from 11/15/2021 Budesonide neb, formoterol neb DuoNeb 4 times daily Incentive spirometry, flutter valve and will adjust BiPAP setting while in the hospital Obtain sputum culture-pending Has been feeling a little better since admission We will continue current management Strongly advised to quit smoking Keep follow-up appointment with outpatient table tender sludge HTN continue lisinopril T2DM last a1c 5.6 not on any hypoglycemics question if true t2dm vs pre dm will monitor accuchecks with steroid use, will hold coverage for now if consistently elevated will add coverage HLD continue statin DVT ppx: SQ Heparin bid DNR/DNI, pt currently refusing bipap therapy, repeat abg and will re address with patient PCP: Jermaineterfeliciano Dispo: PCU, likely to remain hospitalized > 24hrs Admission and Anticipated Discharge Date Admission Date: November 13, 2021 Subjective 11/14/2021 The patient was seen and examined in telemetry unit She has been feeling a little better since admission She has end-stage COPD/emphysema and continues to smoke Denies any chest pain and/or palpitation Review of Systems Review of Systems: All systems reviewed and are unremarkable except as noted below Respiratory: Moderate shortness of breath at rest Physical Exam Physical Exam: Lying in bed with moderate shortness of breath Constitutional: + ill appearing and + thin Eyes: PERRL, conjunctivae normal, anicteric sclerae ENMT: external ear and nose normal, oropharynx normal Neck: trachea midline, no thyromegaly Respiratory: + respiratory distress (Mild to moderate) Auscultation: + diminished lung sounds and + wheezes (Occasional wheezing); no crackles Cardiovascular: Rate/Rhythm: regular rate, regular rhythm and + tachycardic Heart Sounds: normal S1, normal S2 and + murmur Extremities: no edema Chest (Breasts): Additional Comments: Has barrel chest Gastrointestinal (Abdomen): Inspection/Auscultation: normal bowel sounds; abdomen not distended Percussion/Palpation: abdomen soft; abdomen nontender Musculoskeletal: No acute arthritis in any joint Neurologic: Alert, awake and oriented x3. Generally weak. No focal sensory or no motor deficit appreciated Psychiatric: A+Ox3, euthymic affect Lymphatic: no cervical or axillary lymphadenopathy Results & Data Results & Data ([facility]) Vital Signs (Past 12 Hours) Vital Signs Temp Pulse Resp BP Pulse Ox 11/14/21 11:52 36.8 C 102 H 22 146/84 H 95 11/14/21 11:15 88 20 97 11/14/21 08:26 36.7 C 110 H 24 144/69 H 96 11/14/21 07:04 94 H 22 100 11/14/21 04:15 36.7 C 94 H 18 120/69 100 Laboratory Results Short CBC 11/14/21 Range/Units 07:18 WBC 8.42 (4.8-10.8) K/uL Hgb 11.5 L (12.0-16.0) g/dL Hct 37.9 (37-47) % Plt Count 203 (130-400) K/uL BMP 11/14/21 07:18 Sodium 140 Potassium 4.4 Chloride 95 L Carbon Dioxide 42 H* BUN 16 Creatinine 0.51 L Glucose 137 H Calcium 10.0 Liver Function 11/14/21 Range/Units 07:18 Total Bilirubin 0.2 (0.2-1.0) mg/dl AST 23 (13-39) U/L ALT 18 (7-52) U/L Alkaline Phosphatase 78 (34-104) U/L Albumin 4.1 (3.4-5.0) gm/dl Medications Administered Current Inpatient Medications Acetaminophen (Acetaminophen 325 Mg Tab) 650 mg PO Q4H PRN PRN Reason: Mild Pain or Fever Stop: 12/13/21 14:50 Al Hydrox/Mg Hydrox/Simethicone (Aluminum/Magnesium Susp 30 Ml Udc) 15 ml PO Q4H PRN PRN Reason: Dyspepsia Stop: 12/13/21 14:50 Albuterol (Albut/Ipratrop 3mg/0.5mg Neb 3 Ml Vial) 3 ml NEB Q4R [facility]; Protocol Stop: 12/13/21 14:59 Last Admin: 11/14/21 11:19 Dose: 3 ml Documented by: Aspirin (Aspirin 81 Mg Ectab) 81 mg PO DAILY [facility] Stop: 12/14/21 08:59 Last Admin: 11/14/21 09:44 Dose: 81 mg Documented by: Atorvastatin Calcium (Atorvastatin 10 Mg Tab) 10 mg PO DAILY [facility] Stop: 12/14/21 08:59 Last Admin: 11/14/21 09:44 Dose: 10 mg Documented by: Budesonide (Budesonide 0.5 Mg/2 Ml Vial (Pulmicort)) 0.5 mg NEB BIDR [facility] Stop: 12/13/21 14:50 Last Admin: 11/14/21 07:02 Dose: 0.5 mg Documented by: Dextrose (Dextrose 50% 50 Ml Syringe) 25 - 50 ml IV UD PRN; Protocol PRN Reason: Hypoglycemia Protocol Stop: 12/13/21 14:50 Formoterol Fumarate (Formoterol 20 Mcg/2 Ml Vial) 20 mcg NEB BID [facility] Stop: 12/13/21 14:50 Last Admin: 11/14/21 07:04 Dose: Not Given Documented by: Glucagon (Glucagon For Inj 1 Mg Vial) 1 mg SQ UD PRN; Protocol PRN Reason: Hypoglycemia Protocol Stop: 12/13/21 14:50 Glucose (Glucose 10 Tabs/Tube) 4 - 8 tabs PO UD PRN; Protocol PRN Reason: Hypoglycemia Protocol Stop: 12/13/21 14:50 Glucose (Glucose 40% Gel 15 Gm Tube) 15 - 30 gm PO UD PRN; Protocol PRN Reason: Hypoglycemia Protocol Stop: 12/13/21 14:50 Guaifenesin (Guaifenesin 600 Mg Tabcr) 600 mg PO BID [facility] Stop: 12/13/21 20:59 Last Admin: 11/14/21 09:45 Dose: 600 mg Documented by: Heparin Sodium (Porcine) (Heparin Sod 5,000 Unit/0.5 Ml Vial) 5,000 units SQ Q12 [facility] Stop: 12/13/21 20:59 Last Admin: 11/14/21 09:45 Dose: 5,000 units Documented by: Levofloxacin/Dextrose (Levaquin/D5w) 500 mg in 100 mls @ 100 mls/hr IV Q24H [facility]; Protocol Stop: 11/20/21 15:59 Last Infusion: 11/13/21 19:13 Dose: Infused Documented by: Methylprednisolone 40 mg/ (Syringe) 0.64 mls @ 1.5 mls/min IV TID [facility] Stop: 12/13/21 20:59 Last Admin: 11/14/21 09:46 Dose: 1.5 mls/min Documented by: Lisinopril (Lisinopril 5 Mg Tab) 5 mg PO DAILY [facility] Stop: 12/14/21 08:59 Last Admin: 11/14/21 09:45 Dose: 5 mg Documented by: Loratadine (Loratadine 10 Mg Tab) 10 mg PO DAILY [facility] Stop: 12/14/21 08:59 Last Admin: 11/14/21 09:44 Dose: 10 mg Documented by: Magnesium Hydroxide (Magnesium Hydroxide Susp 30 Ml Udc) 30 ml PO Q12H PRN PRN Reason: Constipation Stop: 12/13/21 14:50 Meloxicam (Meloxicam 7.5 Mg Tab) 15 mg PO DAILY [facility] Stop: 12/14/21 08:59 Last Admin: 11/14/21 09:44 Dose: 15 mg Documented by: Miscellaneous (Carbohydrates For Hypoglycemia ) 15 - 30 gm PO UD PRN PRN Reason: Hypoglycemia Protocol Stop: 12/13/21 14:50 Multivitamins (Multivitamin Tab) 1 tab PO QAM [facility] Stop: 12/14/21 08:59 Last Admin: 11/14/21 09:44 Dose: 1 tab Documented by: Ondansetron HCl (Ondansetron Inj 2 Mg/Ml 2 Ml Vial) 4 mg IV Q6H PRN PRN Reason: Nausea Stop: 12/13/21 14:50 Pantoprazole Sodium (Pantoprazole 40 Mg Tab) 40 mg PO DAILY [facility]; Protocol Stop: 12/14/21 08:59 Last Admin: 11/14/21 09:45 Dose: 40 mg Documented by: Polyethylene Glycol (Polyethylene (Miralax) 17 Gm Pack) 17 gm PO DAILY PRN PRN Reason: Constipation Stop: 12/13/21 14:50 Tramadol HCl (Tramadol Hcl 50 Mg Tablet) 50 mg PO Q6H PRN PRN Reason: Moderate/Severe Pain Stop: 12/13/21 16:04 Last Admin: 11/14/21 12:33 Dose: 50 mg Documented by: Trazodone HCl (Trazodone Hcl 50 Mg Tab) 75 mg PO HS [facility] Stop: 12/13/21 20:59 Last Admin: 11/13/21 21:12 Dose: 75 mg Documented by: Vitamin B Complex (Vitamin B Complex Tab) 1 tab PO DAILY [facility] Stop: 12/14/21 08:59 Last Admin: 11/14/21 09:44 Dose: 1 tab Documented by: Zinc Sulfate (Zinc Sulfate 220 Mg Capsule) 220 mg PO DAILY [facility] Stop: 12/14/21 08:59 Last Admin: 11/14/21 09:45 Dose: 220 mg Documented by:
[2021-11-14] MEDS: levoFLOXacin/D5W 500 MG/100 ML BAG IV SCH (17:47)
--- NOTE | 2021-11-14 18:06 | Electrocardiogram Report ---
Test Reason : Blood Pressure : / mmHG Vent. Rate : 121 BPM Atrial Rate : 121 BPM P-R Int : 150 ms QRS Dur : 076 ms QT Int : 306 ms P-R-T Axes : 085 069 065 degrees QTc Int : 434 ms Poor data quality, interpretation may be adversely affected Sinus tachycardia Cannot rule out Anterior infarct (cited on or before 16-DEC-2017) Abnormal ECG When compared with ECG of 16-DEC-2017 12:17, No significant change was found Confirmed by Nino Gomez ([id number]) on 11/14/2021 6:05:34 PM Referred By: REFERRED SELF Confirmed By:Nino Gomez
[2021-11-14] MEDS: traZODone HCL 50 MG TAB PO SCH (20:20)
[2021-11-15] MEDS: ALBUT/IPRATROP 3MG/0.5MG NEB 3 ML VIAL NEB SCH ×6 (03:10→22:49)
[2021-11-15 07:18] LABS: Hematocrit (blood only) 34.2 % (37-47); Hemoglobin 10.6 g/dL (12.0-16.0); Immature Granulocytes # (auto) 0.01 K/uL (0.00-0.02); Immature Granulocytes % (auto) 0.1 %; Lymphocytes # (auto) 0.67 K/uL (1.2-3.4); Lymphocytes % (auto) 7.7 %; Mean Corpuscular Hemoglobin 30.6 pg (25-34); Mean Corpuscular Volume 98.8 fL (80-100); Mean Platelet Volume 8.9 fL (7.4-10.4); Monocytes # (auto) 0.84 K/uL (0.11-0.59); Monocytes % (auto) 9.6 %; Neutrophils # (auto) 7.23 K/uL (1.4-6.5); Neutrophils % (auto) 82.6 %; Platelet Count 198 K/uL (130-400); RDW Coefficient of Variation 12.1 % (11.5-14.5); RDW Standard Deviation 43.8 fL (36.4-46.3); Red Blood Count 3.46 M/uL (4.2-5.4); White Blood Count 8.75 K/uL (4.8-10.8)
[2021-11-15] MEDS: FORMOTEROL 20 MCG/2 ML VIAL NEB SCH ×2 (07:49→19:52)
[2021-11-15] MEDS: BUDESONIDE 0.5 MG/2 ML VIAL (PULMICORT) NEB SCH ×2 (07:50→19:51)
[2021-11-15 07:51] LABS: Calcium 9.5 mg/dl (8.5-10.1); Creatinine Clr Calc Pharmacy 64.1 ml/min; Est GFR (African American) 116.9 ml/min; Est GFR (Non-African American) 100.9 ml/min; Magnesium 1.9 mg/dl (1.7-2.4); Phosphorus 3.8 mg/dl (2.5-4.9); Potassium 4.3 mmol/L (3.5-5.1)
[2021-11-15] MEDS: methylPREDNISolone 40 MG in SYRINGE 0 ML IV SCH (09:05)
[2021-11-15] MEDS: ATORVASTATIN 10 MG TAB PO SCH (09:05)
[2021-11-15] MEDS: ASPIRIN 81 MG ECTAB PO SCH (09:05)
[2021-11-15] MEDS: guaiFENesin 600 MG TABCR PO SCH ×2 (09:05→20:38)
[2021-11-15] MEDS: HEPARIN SOD 5,000 UNIT/0.5 ML VIAL SQ SCH ×2 (09:05→20:37)
[2021-11-15] MEDS: VITAMIN B COMPLEX TAB PO SCH (09:06)
[2021-11-15] MEDS: MELOXICAM 7.5 MG TAB PO SCH (09:06)
[2021-11-15] MEDS: lisinopril 5 MG TAB PO SCH (09:06)
[2021-11-15] MEDS: LORATADINE 10 MG TAB PO SCH (09:06)
[2021-11-15] MEDS: PANTOprazole 40 MG TAB PO SCH (09:06)
[2021-11-15] MEDS: ZINC SULFATE 220 MG CAPSULE PO SCH (09:06)
[2021-11-15] MEDS: MULTIVITAMIN TAB PO SCH (09:06)
[2021-11-15] MEDS: traMADol HCL 50 MG TABLET PO PRN ×2 (09:13→20:41)
--- NOTE | 2021-11-15 10:13 | Pulmonology Progress Note ---
Date of Service November 15, 2021 Assessment & Plan (1) COPD exacerbation: Plan: I discontinued the IV Solu-Medrol and transition her to 30 mg p.o. prednisone. Continue levofloxacin. Continue Pulmicort and Perforomist. Would recommend switching her to Pulmicort and Perforomist as an outpatient with the addition of a Spiriva Respimat. She previously completed pulmonary rehab. Complete smoking cessation is advised. Patient notes she smokes 1 to 2 cigarettes/day. She has an extensive smoking history. She has a history of severe air trapping based on her PFTs from before. She may potentially be a candidate for bronchoscopic lung volume reduction as an outpatient. She will need updated PFTs. Incentive spirometry and flutter valve ordered. (2) Acute and chronic respiratory failure with hypercapnia: Plan: Patient would benefit from noninvasive ventilator such as trilogy given her chronic hypercapnic respiratory failure. Continue trials of BiPAP while inpatient. If she tolerates, she should be prescribed a trilogy upon discharge. (3) Hypoxemia: Plan: Continue supplemental oxygen to maintain saturations of 88 to 92%. Wean oxygen as able. Plan: Thank you for the consultation. We will continue to follow along with you. Admission and Anticipated Discharge Date Admission Date: November 13, 2021 Subjective Patient feels that her shortness of breath is improved. She denies any chest pain, fevers or chills. She only tolerated BiPAP for approximately 1 hour last night. She does want to continue trying the BiPAP. Review of Systems Review of Systems: All systems reviewed & are unremarkable except as noted in HPI & below Physical Exam Constitutional: + ill appearing, + cachectic, + physical limitations and + frail appearing Eyes: PERRL, conjunctivae normal, anicteric sclerae ENMT: external ear and nose normal, oropharynx normal Neck: trachea midline, no thyromegaly Respiratory: + retractions, + uses accessory muscles and + abnormal respiratory pattern; not tachypneic Auscultation: + diminished lung sounds and + abnormal I/E ratio Cardiovascular: Heart Sounds: normal S1 and normal S2; no murmur Extremities: no edema Musculoskeletal: no cyanosis or clubbing, extremities motor strength 5/5 Skin: no rashes, warm and dry Neurologic: PERRL, EOMI, accommodation nl, no face palsy, no dysarthria Psychiatric: Orientation: alert and oriented x 3 Mood: + depressed mood Results & Data Results & Data ([facility]) Vital Signs (Past 12 Hours) Vital Signs Temp Pulse Pulse Resp BP Pulse Ox 11/15/21 07:52 87 18 92 11/15/21 07:32 37.0 C 80 16 126/71 100 11/15/21 04:29 36.7 C 110 H 20 133/73 94 11/14/21 23:19 85 11/14/21 23:10 36.9 C 86 16 122/71 99 11/14/21 22:16 93 H 16 92 PG Care Time/CCT Total # of Minutes Spent Total Time Spent with Patient: Total time spent is greater than 50% in coordination of care (as documented) at patient's floor/unit and/or counseling patient: Coding Level of Care Code 42508 Subseq Hosp Care Lvl 2 Diagnoses COPD exacerbation J44.1 Acute and chronic respiratory failure with hypercapnia J96.22 Hypoxemia R09.02
[2021-11-15] MEDS: levoFLOXacin 500 MG TAB PO SCH (12:38)
--- NOTE | 2021-11-15 13:36 | Hospitalist Progress Note ---
Date of Service November 15, 2021 Assessment & Plan (1) Acute and chronic respiratory failure with hypercapnia: (2) Acute respiratory acidosis: (3) COPD exacerbation: (4) HTN (hypertension): Plan: This is a 66-year-old female who has significant past medical history of chronic respiratory failure with hypercarbia on 5 L of O2, severe COPD emphysema time, T2DM, HTN, HLD, GERD, tobacco abuse who presents ED secondary to worsening shortness of breath x5 days. Acute on chronic respiratory failure with hypercapnia Acute respiratory acidosis COPD exacerbation ABG showed high CO2 of [address] of the chest showed severe emphysematous changes and scarring compatible with history of COPD without any acute abnormalities Appreciate pulmonary input and recommendation IV Levaquin 500 mg daily IV Solu-Medrol 40 mg 3 times daily and will change to oral prednisone from 11/15/2021 Budesonide neb, formoterol neb DuoNeb 4 times daily Incentive spirometry, flutter valve and will adjust BiPAP setting while in the hospital Obtain sputum culture-pending Has been feeling a little better since admission We will continue current management Strongly advised to quit smoking-has not been smoking since last week Keep follow-up appointment with outpatient race starter Clinically a little better and likely to need Trilogy on discharge Methylprednisone has been changed to oral prednisone HTN continue lisinopril T2DM last a1c 5.6 not on any hypoglycemics question if true t2dm vs pre dm will monitor accuchecks with steroid use, will hold coverage for now if consistently elevated will add coverage HLD continue statin DVT ppx: SQ Heparin bid DNR/DNI, pt currently refusing bipap therapy, repeat abg and will re address with patient PCP: Jono Dispo: PCU, likely to remain hospitalized > 24hrs Admission and Anticipated Discharge Date Admission Date: November 13, 2021 Subjective 11/14/2021 The patient was seen and examined in telemetry unit She has been feeling a little better since admission She has end-stage COPD/emphysema and continues to smoke Denies any chest pain and/or palpitation 11/15/2021 The patient was seen and examined in telemetry unit She has been feeling a little better but remains acutely short of breath with increasing CO2 level Denies any chest pain, fever and or chills Review of Systems Review of Systems: All systems reviewed and are unremarkable except as noted below Respiratory: Moderate shortness of breath at rest Physical Exam Physical Exam: Lying in bed with moderate shortness of breath Constitutional: + ill appearing and + thin Eyes: PERRL, conjunctivae normal, anicteric sclerae ENMT: external ear and nose normal, oropharynx normal Neck: trachea midline, no thyromegaly Respiratory: + respiratory distress (Mild to moderate) Auscultation: + dimi nished lung sounds and + wheezes (Occasional wheezing); no crackles Cardiovascular: Rate/Rhythm: regular rate, regular rhythm and + tachycardic Heart Sounds: normal S1, normal S2 and + murmur Extremities: no edema Gastrointestinal (Abdomen): Inspection/Auscultation: normal bowel sounds; abdomen not distended Percussion/Palpation: abdomen soft; abdomen nontender Musculoskeletal: No acute arthritis in any joint Neurologic: Alert, awake and oriented x3. No focal sensory or no motor deficit appreciated Psychiatric: A+Ox3, euthymic affect Lymphatic: no cervical or axillary lymphadenopathy Results & Data Results & Data ([facility]) Vital Signs (Past 12 Hours) Vital Signs Temp Pulse Pulse Resp BP Pulse Ox 11/15/21 11:21 37.0 C 84 22 127/74 98 11/15/21 10:59 81 20 97 11/15/21 10:56 79 18 98 11/15/21 08:00 65 11/15/21 07:52 87 18 92 11/15/21 07:32 37.0 C 80 16 126/71 100 11/15/21 04:29 36.7 C 110 H 20 133/73 94 Laboratory Results Short CBC 11/15/21 Range/Units 06:39 WBC 8.75 (4.8-10.8) K/uL Hgb 10.6 L (12.0-16.0) g/dL Hct 34.2 L (37-47) % Plt Count 198 (130-400) K/uL BMP 11/15/21 06:39 Sodium 141 Potassium 4.3 Chloride 96 L Carbon Dioxide 43 H* BUN 20 Creatinine 0.50 L Glucose 127 H Calcium 9.5 Medications Administered Current Inpatient Medications Acetaminophen (Acetaminophen 325 Mg Tab) 650 mg PO Q4H PRN PRN Reason: Mild Pain or Fever Stop: 12/13/21 14:50 Al Hydrox/Mg Hydrox/Simethicone (Aluminum/Magnesium Susp 30 Ml Udc) 15 ml PO Q4H PRN PRN Reason: Dyspepsia Stop: 12/13/21 14:50 Albuterol (Albut/Ipratrop 3mg/0.5mg Neb 3 Ml Vial) 3 ml NEB Q4R [facility]AY[facility]; Protocol Stop: 12/13/21 14:59 Last Admin: 11/15/21 10:55 Dose: 3 ml Documented by: Aspirin (Aspirin 81 Mg Ectab) 81 mg PO DAILY [facility] Stop: 12/14/21 08:59 Last Admin: 11/15/21 09:05 Dose: 81 mg Documented by: Atorvastatin Calcium (Atorvastatin 10 Mg Tab) 10 mg PO DAILY [facility] Stop: 12/14/21 08:59 Last Admin: 11/15/21 09:05 Dose: 10 mg Documented by: Budesonide (Budesonide 0.5 Mg/2 Ml Vial (Pulmicort)) 0.5 mg NEB BIDR [facility] Stop: 12/13/21 14:50 Last Admin: 11/15/21 07:50 Dose: 0.5 mg Documented by: Dextrose (Dextrose 50% 50 Ml Syringe) 25 - 50 ml IV UD PRN; Protocol PRN Reason: Hypoglycemia Protocol Stop: 12/13/21 14:50 Formoterol Fumarate (Formoterol 20 Mcg/2 Ml Vial) 20 mcg NEB BID [facility] Stop: 12/13/21 14:50 Last Admin: 11/15/21 07:49 Dose: 20 mcg Documented by: Glucagon (Glucagon For Inj 1 Mg Vial) 1 mg SQ UD PRN; Protocol PRN Reason: Hypoglycemia Protocol Stop: 12/13/21 14:50 Glucose (Glucose 10 Tabs/Tube) 4 - 8 tabs PO UD PRN; Protocol PRN Reason: Hypoglycemia Protocol Stop: 12/13/21 14:50 Glucose (Glucose 40% Gel 15 Gm Tube) 15 - 30 gm PO UD PRN; Protocol PRN Reason: Hypoglycemia Protocol Stop: 12/13/21 14:50 Guaifenesin (Guaifenesin 600 Mg Tabcr) 600 mg PO BID [facility] Stop: 12/13/21 20:59 Last Admin: 11/15/21 09:05 Dose: 600 mg Documented by: Heparin Sodium (Porcine) (Heparin Sod 5,000 Unit/0.5 Ml Vial) 5,000 units SQ Q12 [facility] Stop: 12/13/21 20:59 Last Admin: 11/15/21 09:05 Dose: 5,000 units Documented by: Levofloxacin (Levofloxacin 500 Mg Tab) 500 mg PO DAILY [facility]; Protocol Stop: 11/18/21 08:59 Last Admin: 11/15/21 12:38 Dose: 500 mg Documented by: Lisinopril (Lisinopril 5 Mg Tab) 5 mg PO DAILY [facility] Stop: 12/14/21 08:59 Last Admin: 11/15/21 09:06 Dose: 5 mg Documented by: Loratadine (Loratadine 10 Mg Tab) 10 mg PO DAILY [facility] Stop: 12/14/21 08:59 Last Admin: 11/15/21 09:06 Dose: 10 mg Documented by: Magnesium Hydroxide (Magnesium Hydroxide Susp 30 Ml Udc) 30 ml PO Q12H PRN PRN Reason: Constipation Stop: 12/13/21 14:50 Last Admin: 11/15/21 09:04 Dose: 30 ml Documented by: Meloxicam (Meloxicam 7.5 Mg Tab) 15 mg PO DAILY [facility] Stop: 12/14/21 08:59 Last Admin: 11/15/21 09:06 Dose: 15 mg Documented by: Miscellaneous (Carbohydrates For Hypoglycemia ) 15 - 30 gm PO UD PRN PRN Reason: Hypoglycemia Protocol Stop: 12/13/21 14:50 Multivitamins (Multivitamin Tab) 1 tab PO QAM [facility] Stop: 12/14/21 08:59 Last Admin: 11/15/21 09:06 Dose: 1 tab Documented by: Ondansetron HCl (Ondansetron Inj 2 Mg/Ml 2 Ml Vial) 4 mg IV Q6H PRN PRN Reason: Nausea Stop: 12/13/21 14:50 Pantoprazole Sodium (Pantoprazole 40 Mg Tab) 40 mg PO DAILY [facility]; Protocol Stop: 12/14/21 08:59 Last Admin: 11/15/21 09:06 Dose: 40 mg Documented by: Polyethylene Glycol (Polyethylene (Miralax) 17 Gm Pack) 17 gm PO DAILY PRN PRN Reason: Constipation Stop: 12/13/21 14:50 Prednisone (Prednisone 10 Mg Tablet) 30 mg PO DAILY [facility] Stop: 12/16/21 08:59 Tramadol HCl (Tramadol Hcl 50 Mg Tablet) 50 mg PO Q6H PRN PRN Reason: Moderate/Severe Pain Stop: 12/13/21 16:04 Last Admin: 11/15/21 09:13 Dose: 50 mg Documented by: Trazodone HCl (Trazodone Hcl 50 Mg Tab) 75 mg PO HS [facility] Stop: 12/13/21 20:59 Last Admin: 11/14/21 20:20 Dose: 75 mg Documented by: Vitamin B Complex (Vitamin B Complex Tab) 1 tab PO DAILY [facility] Stop: 12/14/21 08:59 Last Admin: 11/15/21 09:06 Dose: 1 tab Documented by: Zinc Sulfate (Zinc Sulfate 220 Mg Capsule) 220 mg PO DAILY [facility] Stop: 12/14/21 08:59 Last Admin: 11/15/21 09:06 Dose: 220 mg Documented by:
[2021-11-15] MEDS: traZODone HCL 50 MG TAB PO SCH (20:37)
[2021-11-16] MEDS: ALBUT/IPRATROP 3MG/0.5MG NEB 3 ML VIAL NEB SCH ×6 (02:44→22:35)
[2021-11-16 06:06] LABS: Eosinophils # (auto) 0.05 K/uL (0-0.5); Eosinophils % (auto) 0.7 %; Hemoglobin 10.9 g/dL (12.0-16.0); Immature Granulocytes # (auto) 0.02 K/uL (0.00-0.02); Immature Granulocytes % (auto) 0.3 %; Lymphocytes # (auto) 1.77 K/uL (1.2-3.4); Lymphocytes % (auto) 24.4 %; Mean Corpuscular Hemoglobin 30.2 pg (25-34); Mean Corpuscular Hgb Conc 30.3 g/dL (32-36); Mean Corpuscular Volume 99.7 fL (80-100); Mean Platelet Volume 8.7 fL (7.4-10.4); Monocytes # (auto) 0.94 K/uL (0.11-0.59); Neutrophils # (auto) 4.46 K/uL (1.4-6.5); Neutrophils % (auto) 61.6 %; Platelet Count 191 K/uL (130-400); RDW Coefficient of Variation 12.2 % (11.5-14.5); RDW Standard Deviation 44.4 fL (36.4-46.3); Red Blood Count 3.61 M/uL (4.2-5.4); White Blood Count 7.24 K/uL (4.8-10.8)
[2021-11-16 06:28] LABS: BUN Creatinine Ratio 41.8 (10-20); Calcium 9.3 mg/dl (8.5-10.1); Creatinine Clr Calc Pharmacy 57.2 ml/min; Est GFR (African American) 113.3 ml/min; Est GFR (Non-African American) 97.7 ml/min; Potassium 3.8 mmol/L (3.5-5.1)
[2021-11-16] MEDS: BUDESONIDE 0.5 MG/2 ML VIAL (PULMICORT) NEB SCH ×2 (08:09→20:20)
[2021-11-16] MEDS: FORMOTEROL 20 MCG/2 ML VIAL NEB SCH ×2 (08:09→20:19)
--- NOTE | 2021-11-16 09:09 | Pulmonology Progress Note ---
Date of Service November 16, 2021 Assessment & Plan (1) COPD exacerbation: Plan: Continue p.o. prednisone for 5 to 7 days. Continue levofloxacin. Continue Pulmicort and Perforomist. Would recommend switching her to Pulmicort and Perforomist as an outpatient with the addition of a Spiriva Respimat. She previously completed pulmonary rehab. Complete smoking cessation is advised. Patient notes she smokes 1 to 2 cigarettes/day. She has an extensive smoking history. She has a history of severe air trapping based on her PFTs from before. She may potentially be a candidate for bronchoscopic lung volume reduction as an outpatient. She will need updated PFTs. Incentive spirometry and flutter valve ordered. Patient seems to be tolerating BiPAP therapy notes low up titration of use. (2) Acute and chronic respiratory failure with hypercapnia: Plan: Due to chronic hypercapnic respiratory failure consequent to COPD the patient now requires a noninvasive home ventilator. Bilevel therapy with and without a rate would be ineffective as patient requires a volume targeted mode. Ventilation is required to decrease work of breathing and improve pulmonary status. Interruption of ventilator support would lead to decline of health status. NIMV settings should be AVAPS-AE; Breath rate: auto; Inspiratory time: auto; Sigh: off; Tidal Volume: [350-450], PS min: [4-10 PS max: 12-20]; EPAP min: [6- 10]; EPAP max: [10-16]; AVAPS rate: [14 during sleep and as needed] (3) Hypoxemia: Plan: Continue supplemental oxygen to maintain saturations of 88 to 92%. Wean oxygen as able. Plan: Thank you for the consultation. We will continue to follow along with you. Admission and Anticipated Discharge Date Admission Date: November 13, 2021 Subjective Patient seen and examined. She is feeling better today and less short of breath. She tolerated the BiPAP yesterday for approximately 3 hours. She is interested in pursuing noninvasive ventilation as an outpatient. She denies any cough this morning. No fevers or chills. Review of Systems Review of Systems: All systems reviewed & are unremarkable except as noted in HPI & below Physical Exam Constitutional: + ill appearing, + cachectic, + physical limitations and + frail appearing Eyes: PERRL, conjunctivae normal, anicteric sclerae ENMT: external ear and nose normal, oropharynx normal Neck: trachea midline, no thyromegaly Respiratory: normal respiratory effort and + abnormal respiratory pattern; no retractions, does not use accessory muscles and not tachypneic Auscultation: + diminished lung sounds and + abnormal I/E ratio Cardiovascular: Heart Sounds: normal S1 and normal S2; no murmur Extremities: no edema Musculoskeletal: no cyanosis or clubbing, extremities motor strength 5/5 Skin: no rashes, warm and dry Neurologic: PERRL, EOMI, accommodation nl, no face palsy, no dysarthria Psychiatric: Orientation: alert and oriented x 3 Mood: + depressed mood Results & Data Results & Data ([facility]) Vital Signs (Past 12 Hours) Vital Signs Temp Pulse Pulse Resp BP Pulse Ox 11/16/21 08:11 97 H 22 92 11/16/21 07:28 37.1 C 77 18 122/80 94 11/16/21 05:19 37.0 C 80 24 111/84 97 11/16/21 01:36 71 11/16/21 01:28 37.0 C 82 20 131/74 100 11/15/21 22:53 86 16 99 11/15/21 22:51 69 16 100 PG Care Time/CCT Total # of Minutes Spent Total Time Spent with Patient: Total time spent is greater than 50% in coordination of care (as documented) at patient's floor/unit and/or counseling patient: Coding Level of Care Code 71878 Subseq Hosp Care Lvl 2 Diagnoses COPD exacerbation J44.1 Acute and chronic respiratory failure with hypercapnia J96.22 Hypoxemia R09.02
[2021-11-16] MEDS: predniSONE 10 MG TABLET PO SCH (09:10)
[2021-11-16] MEDS: HEPARIN SOD 5,000 UNIT/0.5 ML VIAL SQ SCH ×2 (09:10→21:13)
[2021-11-16] MEDS: guaiFENesin 600 MG TABCR PO SCH ×2 (09:10→21:13)
[2021-11-16] MEDS: ATORVASTATIN 10 MG TAB PO SCH (09:10)
[2021-11-16] MEDS: lisinopril 5 MG TAB PO SCH (09:10)
[2021-11-16] MEDS: PANTOprazole 40 MG TAB PO SCH (09:11)
[2021-11-16] MEDS: MULTIVITAMIN TAB PO SCH (09:11)
[2021-11-16] MEDS: ASPIRIN 81 MG ECTAB PO SCH (09:11)
[2021-11-16] MEDS: LORATADINE 10 MG TAB PO SCH (09:11)
[2021-11-16] MEDS: levoFLOXacin 500 MG TAB PO SCH (09:12)
[2021-11-16] MEDS: MELOXICAM 7.5 MG TAB PO SCH (09:12)
[2021-11-16] MEDS: ZINC SULFATE 220 MG CAPSULE PO SCH (09:12)
[2021-11-16] MEDS: VITAMIN B COMPLEX TAB PO SCH (09:12)
[2021-11-16] MEDS: traMADol HCL 50 MG TABLET PO PRN ×2 (09:19→21:11)
--- NOTE | 2021-11-16 16:53 | Hospitalist Progress Note ---
Date of Service November 16, 2021 Assessment & Plan (1) Acute and chronic respiratory failure with hypercapnia: (2) Acute respiratory acidosis: (3) COPD exacerbation: (4) HTN (hypertension): Plan: This is a 66-year-old female who has significant past medical history of chronic respiratory failure with hypercarbia on 5 L of O2, severe COPD emphysema time, T2DM, HTN, HLD, GERD, tobacco abuse who presents ED secondary to worsening shortness of breath x5 days. Acute on chronic respiratory failure with hypercapnia Acute respiratory acidosis COPD exacerbation ABG showed high CO2 of [address] of the chest showed severe emphysematous changes and scarring compatible with history of COPD without any acute abnormalities Appreciate pulmonary input and recommendation IV Levaquin 500 mg daily She was started on IV Solu-Medrol 40 mg 3 times daily then transition to oral prednisone from 11/15/2021 Continue Budesonide neb, formoterol neb, and DuoNeb 4 times daily prn Continue Incentive spirometry, flutter valve Pulm on board recommended trilogy on discharge Sputum cx no growth Continue strongly advise for smoking cessation Continue prednisone taper course HTN continue lisinopril T2DM Most recent hgb a1c 5.5 on 11/14/21 not on any hypoglycemics question if true t2dm vs pre dm Continue monitor accuchecks with steroid use if consistently elevated will add coverage HLD continue statin DVT ppx: SQ Heparin bid Code status DNR/DNI PCP: Jono Dispo: Possible discharge in am Admission and Anticipated Discharge Date Admission Date: November 13, 2021 Subjective Pt was seen and examined for follow up of SOB Lying in bed with no acute respiratory distress Pt said that her breathing is much better She said that she is back to her baseline She said that she slept with the bipap last night for 3 hrs and another 2 hrs early Nurse said that her oxygen level drops to 90% with exertion Currently denies any chest pain, palpitation, dizziness and fever Review of Systems Review of Systems: All systems reviewed & are unremarkable except as noted in Subjective Physical Exam Physical Exam: General- No acute distress Head- atraumatic Eyes- PERRL, EOMI, ENT- oropharynx clear Neck- supple, no JVD Lungs- diminished BS Heart- regular rhythm; no murmur Abdomen- normal bowel sounds, soft, nontender Extremities- no calf tenderness Neuro- alert, oriented x 3; PERRL, EOMI; no facial palsy; no dysarthria Skin- warm & dry Results & Data Results & Data ([facility]) Vital Signs (Past 12 Hours) Vital Signs Temp Pulse Resp BP Pulse Ox Pulse Ox Pulse Ox 11/16/21 15:40 37.2 C 90 20 106/72 99 11/16/21 15:18 85 18 97 11/16/21 13:25 85 L 11/16/21 11:31 37.1 C 107 H 20 140/81 96 11/16/21 11:20 101 H 20 93 11/16/21 10:26 93 91 11/16/21 08:11 97 H 22 92 11/16/21 07:28 37.1 C 77 18 122/80 94 11/16/21 05:19 37.0 C 80 24 111/84 97 Pulse Ox 11/16/21 15:40 11/16/21 15:18 11/16/21 13:25 11/16/21 11:31 11/16/21 11:20 11/16/21 10:26 85 L 11/16/21 08:11 11/16/21 07:28 11/16/21 05:19
[2021-11-16] MEDS: traZODone HCL 50 MG TAB PO SCH (21:10)
[2021-11-17] MEDS: ALBUT/IPRATROP 3MG/0.5MG NEB 3 ML VIAL NEB SCH ×5 (02:46→19:55)
[2021-11-17 07:04] LABS: Base Excess VBG 15.7 mEq/L; HCO3 VBG 44 mmol/L; PCO2 VBG 78 mmHg (38-50); PO2 VBG 20 mmHg; pH VBG 7.37 (7.36-7.41)
[2021-11-17 07:15] LABS: Oxygen Saturation VBG < 60.0 %
[2021-11-17] MEDS: BUDESONIDE 0.5 MG/2 ML VIAL (PULMICORT) NEB SCH ×2 (07:21→21:00)
[2021-11-17] MEDS: FORMOTEROL 20 MCG/2 ML VIAL NEB SCH ×2 (07:21→20:59)
[2021-11-17] MEDS: VITAMIN B COMPLEX TAB PO SCH (08:27)
[2021-11-17] MEDS: MELOXICAM 7.5 MG TAB PO SCH (08:27)
[2021-11-17] MEDS: levoFLOXacin 500 MG TAB PO SCH (08:27)
[2021-11-17] MEDS: PANTOprazole 40 MG TAB PO SCH (08:27)
[2021-11-17] MEDS: guaiFENesin 600 MG TABCR PO SCH ×2 (08:27→21:31)
[2021-11-17] MEDS: MULTIVITAMIN TAB PO SCH (08:28)
[2021-11-17] MEDS: ZINC SULFATE 220 MG CAPSULE PO SCH (08:28)
[2021-11-17] MEDS: ASPIRIN 81 MG ECTAB PO SCH (08:28)
[2021-11-17] MEDS: predniSONE 10 MG TABLET PO SCH (08:28)
[2021-11-17] MEDS: ATORVASTATIN 10 MG TAB PO SCH (08:28)
[2021-11-17] MEDS: LORATADINE 10 MG TAB PO SCH (08:28)
[2021-11-17] MEDS: lisinopril 5 MG TAB PO SCH (08:28)
[2021-11-17] MEDS: HEPARIN SOD 5,000 UNIT/0.5 ML VIAL SQ SCH ×2 (08:29→21:38)
[2021-11-17] MEDS: traMADol HCL 50 MG TABLET PO PRN ×2 (08:39→21:37)
[2021-11-17] MEDS: acetaZOLAMIDE 250 MG in DEXTROSE 5% 100 ML IV SCH ×2 (10:13→22:56)
--- NOTE | 2021-11-17 17:16 | Hospitalist Progress Note ---
Date of Service November 17, 2021 Assessment & Plan (1) Acute and chronic respiratory failure with hypercapnia: (2) Acute respiratory acidosis: (3) COPD exacerbation: (4) HTN (hypertension): Plan: This is a 66-year-old female who has significant past medical history of chronic respiratory failure with hypercarbia on 5 L of O2, severe COPD emphysema time, T2DM, HTN, HLD, GERD, tobacco abuse who presents ED secondary to worsening shortness of breath x5 days. Acute on chronic respiratory failure with hypercapnia Acute respiratory acidosis COPD exacerbation ABG showed high CO2 of [address] of the chest showed severe emphysematous changes and scarring compatible with history of COPD without any acute abnormalities Appreciate pulmonary input and recommendation IV Levaquin 500 mg daily She was started on IV Solu-Medrol 40 mg 3 times daily then transition to oral prednisone from 11/15/2021 Continue Budesonide neb, formoterol neb, and DuoNeb 4 times daily prn Continue Incentive spirometry, flutter valve Pulm on board recommended trilogy on discharge Sputum cx no growth Strongly advise for smoking cessation Continue prednisone taper course Clinically improve significantly Script signed and given to case management for the trilogy HTN continue lisinopril T2DM Most recent hgb a1c 5.5 on 11/14/21 not on any hypoglycemics question if true t2dm vs pre dm Continue monitor accuchecks with steroid use if consistently elevated will add coverage HLD continue statin DVT ppx: SQ Heparin bid Code status DNR/DNI PCP: Jono Dispo: Possible discharge tomorrow Admission and Anticipated Discharge Date Admission Date: November 13, 2021 Subjective Pt was seen and examined for follow up of SOB Sitting in chair with no acute respiratory distress Pt said that her breathing continues to improves She said that she was able to use the bipap for 4hrs last night Currently denies any chest pain, palpitation, dizziness and fever Review of Systems 2 Review of Systems: All systems reviewed & are unremarkable except as noted in Subjective Physical Exam Physical Exam: General- No acute distress Head- atraumatic Eyes- PERRL, EOMI, ENT- oropharynx clear Neck- supple, no JVD Lungs- diminished BS Heart- regular rhythm; no murmur Abdomen- normal bowel sounds, soft, nontender Extremities- no calf tenderness Neuro- alert, oriented x 3; PERRL, EOMI; no facial palsy; no dysarthria Skin- warm & dry Results & Data Results & Data ([facility]) Vital Signs (Past 12 Hours) Vital Signs Temp Pulse Pulse Resp BP Pulse Ox 11/17/21 16:10 37.2 C 88 24 121/82 96 11/17/21 15:32 92 H 18 98 11/17/21 15:19 91 H 11/17/21 11:28 37.2 C 108 H 18 117/80 98 11/17/21 11:08 92 H 16 93 11/17/21 08:00 68 11/17/21 07:43 37.0 C 81 20 119/70 96 11/17/21 07:21 75 22 100
[2021-11-17] MEDS: traZODone HCL 50 MG TAB PO SCH (21:29)
[2021-11-18] MEDS: ALBUT/IPRATROP 3MG/0.5MG NEB 3 ML VIAL NEB SCH ×4 (00:19→11:11)
[2021-11-18] MEDS: BUDESONIDE 0.5 MG/2 ML VIAL (PULMICORT) NEB SCH (07:15)
[2021-11-18] MEDS: FORMOTEROL 20 MCG/2 ML VIAL NEB SCH (07:15)
[2021-11-18] MEDS: PANTOprazole 40 MG TAB PO SCH (08:46)
[2021-11-18] MEDS: predniSONE 10 MG TABLET PO SCH (08:46)
[2021-11-18] MEDS: ATORVASTATIN 10 MG TAB PO SCH (08:46)
[2021-11-18] MEDS: guaiFENesin 600 MG TABCR PO SCH (08:46)
[2021-11-18] MEDS: LORATADINE 10 MG TAB PO SCH (08:46)
[2021-11-18] MEDS: lisinopril 5 MG TAB PO SCH (08:47)
[2021-11-18] MEDS: ASPIRIN 81 MG ECTAB PO SCH (08:47)
[2021-11-18] MEDS: MELOXICAM 7.5 MG TAB PO SCH (08:47)
[2021-11-18] MEDS: HEPARIN SOD 5,000 UNIT/0.5 ML VIAL SQ SCH (08:48)
--- NOTE | 2021-11-18 10:20 | Pulmonology Progress Note ---
Date of Service November 18, 2021 Assessment & Plan (1) COPD exacerbation: Plan: Continue p.o. prednisone for 5 to 7 days. Continue for total of 7 days. Continue Pulmicort and Perforomist. Would recommend switching her to Pulmicort and Perforomist as an outpatient with the addition of a Spiriva Respimat. She previously completed pulmonary rehab. Complete smoking cessation is advised. Patient notes she smokes 1 to 2 cigarettes/day. She has an extensive smoking history. She has a history of severe air trapping based on her PFTs from before. She may potentially be a candidate for bronchoscopic lung volume reduction as an outpatient. She will need updated PFTs. Incentive spirometry and flutter valve ordered. Patient seems to be tolerating BiPAP therapy notes low up titration of use. (2) Acute and chronic respiratory failure with hypercapnia: Plan: Patient notes that she is unable to afford her trilogy co-pay. We will touch base with case management to see what they could do. She received 2 doses of acetazolamide yesterday. We will recheck a VBG today. (3) Hypoxemia: Plan: Continue supplemental oxygen to maintain saturations of 88 to 92%. Wean oxygen as able. Plan: Thank you for the consultation. She is stable for discharge from my standpoint. Admission and Anticipated Discharge Date Admission Date: November 13, 2021 Subjective Patient seen and examined. She feels that she is near her baseline from a respiratory standpoint. She is using BiPAP 4 to 5 hours/day. She is very eager to go home. She notes that she is going to have trouble affording her trilogy ventilator. Review of Systems Review of Systems: All systems reviewed & are unremarkable except as noted in HPI & below Physical Exam Constitutional: + ill appearing, + cachectic, + physical limitations and + frail appearing Eyes: PERRL, conjunctivae normal, anicteric sclerae ENMT: external ear and nose normal, oropharynx normal Neck: trachea midline, no thyromegaly Respiratory: normal respiratory effort and + abnormal respiratory pattern; no retractions, does not use accessory muscles and not tachypneic Auscultation: + diminished lung sounds and + abnormal I/E ratio Cardiovascular: Heart Sounds: normal S1 and normal S2; no murmur Extremities: no edema Musculoskeletal: no cyanosis or clubbing, extremities motor strength 5/5 Skin: no rashes, warm and dry Neurologic: PERRL, EOMI, accommodation nl, no face palsy, no dysarthria Psychiatric: Orientation: alert and oriented x 3 Mood: + depressed mood Results & Data Results & Data ([facility]) Vital Signs (Past 12 Hours) Vital Signs Temp Pulse Pulse Resp BP Pulse Ox 11/18/21 07:57 36.5 C 101 H 16 109/63 93 11/18/21 07:15 96 H 18 94 11/18/21 03:58 36.5 C 92 H 18 106/55 L 92 11/18/21 03:03 93 H 93 H 16 96 11/18/21 00:22 72 18 99 11/18/21 00:20 72 18 99 11/17/21 23:56 37.1 C 74 18 111/54 L 100 11/17/21 22:30 83 PG Care Time/CCT Total # of Minutes Spent Total Time Spent with Patient: Total time spent is greater than 50% in coordination of care (as documented) at patient's floor/unit and/or counseling patient: Coding Level of Care Code 71737 Subseq Hosp Care Lvl 2 Diagnoses COPD exacerbation J44.1 Acute and chronic respiratory failure with hypercapnia J96.22 Hypoxemia R09.02
[2021-11-18 12:07] LABS: Base Excess VBG 6.4 mEq/L; Oxygen Saturation VBG 84.6 %; pH VBG 7.39 (7.36-7.41)
--- NOTE | 2021-11-18 13:21 | Discharge Summary ---
Date of Service November 18, 2021 Admission HPI Per Admitting Provider This is a 66-year-old female who has significant past medical history of chronic respiratory failure with hypercarbia on 5 L of O2, severe COPD emphysema time, T2DM, HTN, HLD, GERD, tobacco abuse who presents ED secondary to worsening shortness of breath x5 days. She has chronic shortness of breath with exertion at baseline due to COPD. She has been using her Advair twice daily and at baseline only needs albuterol once weekly. Over the past 5 to 6 days she has had worsening shortness of breath with exertion and at rest, productive cough of brown purulent sputum, wheezing and today difficulty speaking secondary to shortness of breath. She has been monitoring her temperature daily and denies any documented fevers. She further denies any chills, sweats, lightheadedness, dizziness, chest pain, palpitations, hemoptysis, nausea, vomiting, abdominal pain, change in her bowel or urinary habits. She admits to a decrease in appetite secondary to inability to eat due to breathing. She has been using her albuterol nebulizer at least 2-3 times daily. She did start azithromycin on Wednesday and has had 2 total doses. Typically she states after taking antibiotic for 2 days usually her symptoms are improved and she continues to worsen. In ED patient was found to have an acute respiratory acidosis with a pH of 7.23 and a CO2 of 103. She is a known CO2 retainer and it was mentating clearly. She is a DNR and DNI in ED refused BiPAP therapy. Her CBC revealed low hemoglobin 11.0 but otherwise mostly unremarkable. Her CMP revealed chloride 93, CO2 41, glucose 121 and negative SARS-CoV-2 and influenza. Her chest x-ray was consistent with advanced emphysema and airspace opacities bibasilarly. In route she did receive IV steroids. In ED she was started on DuoNeb as well as placed on high flow nasal cannula to maintain oxygen saturation due to BiPAP refusal. Admission Exam Per Admitting Provider Constitutional: Cachectic, female, lying in position, appears age, vitals as above, tachypneic, answers questions appropriately Head: Normocephalic, Atraumatic Eyes: PERRL, conjunctivae normal, anicteric sclerae ENMT: external ear and nose normal, oropharynx normal Neck: trachea midline, no thyromegaly normal visual inspection Respiratory: Increased respiratory effort, distant breath sounds throughout, decreased breath sounds at bases, no wheezes, rales or rhonchi noted. Audible wet cough. Purulent sputum visualized. No accessory muscle use Cardiovascular: RRR, no murmur, no edema Vessels: no JVD or carotid bruit Chest: normal inspection of chest Abdomen: normal bowel sounds, soft, nontender, no hepatosplenomegaly Musculoskeletal: no cyanosis or clubbing, extremities motor strength 5/5 Skin: no rashes, warm and dry normal turgor Neurologic: PERRL, EOMI, accommodation nl, no face palsy, no dysarthria CN's II-XI intact bilaterally and moves all extremities Psychiatric: A+Ox3, euthymic affect Lymphatic: no cervical or axillary lymphadenopathy : deferred Principal Diagnosis Acute and chronic respiratory failure with hypercapnia: Acute respiratory acidosis: COPD exacerbation: HTN (hypertension): Diabetes Discharge Exam General- No acute distress Head- atraumatic Eyes- PERRL, EOMI, ENT- oropharynx clear Neck- supple, no JVD Lungs- diminished BS Heart- regular rhythm; no murmur Abdomen- normal bowel sounds, soft, nontender Extremities- no calf tenderness Neuro- alert, oriented x 3; PERRL, EOMI; no facial palsy; no dysarthria Skin- warm & dry Discharge Data Allergies Allergy/AdvReac Type Severity Reaction Status Date / Time prednisone AdvReac Confusion Verified 11/13/21 13:47 Consultations 11/13/21 12:23 ED Decision to Admit Stat 11/13/21 14:51 Consult Pulmonology Routine Ordered Studies 11/13/21 13:04 CT chest diagnostic wo con Stat CT chest diagnostic wo con CLINICAL HISTORY: copd TECHNIQUE: Multidetector row helical CT of the chest was performed. Coronal and sagittal reformations were obtained. Automated dose lowering techniques and/or adjustment according to patient size were utilized for this exam. CT DOSE: 184.08 mGy.cm Comparison: Comparison is made to CT chest 07/01/2020 FINDINGS: Lungs and pleura: Severe emphysematous changes are seen. A few foci of scarring are seen most prominently a 13 mm focus in the right upper lobe (series 4 image 35). Heart and pericardium: Heart size is normal. No pericardial effusion. Vessels: Unremarkable. Mediastinum and [place]: Subcentimeter lymph nodes are seen. Chest wall and lower neck: Cachexia is noted. Abdomen: Surgical clips are seen about the right kidney. Bones: Degenerative changes in the thoracic spine. IMPRESSION: Severe emphysematous changes and scarring compatible with history of COPD without acute abnormalities. ACT 112: Negative or not required by law. Electronically signed by: Eric Davidson M.D. 11/14/2021 8:33 AM Dictated:11/14/21 0824 Transcribed: 11/14/21823 SINGLE VIEW CHEST CLINICAL HISTORY: Atypical chest pain. Dyspnea. FINDINGS: An AP, portable, upright chest radiograph is compared to study dated 12/16/2017 and correlated with chest CT dated 07/01/2020. The examination is degraded by portable technique and apical lordotic positioning. The cardiomediastinal silhouette is unremarkable noting atherosclerotic calcification of the thoracic aorta. Enlargement of the central pulmonary cydney rose suggests pulmonary artery hypertension. Advanced emphysema and chronic interstitial thickening is similar to previous. Airspace opacities are present at both lung bases. Foci of parenchymal scarring are seen throughout both lungs. No large pleural effusion or pneumothorax is seen. The skeletal structures are osteopenic. There is chronic posttraumatic deformity of the left clavicle. Calcific tendinopathy is noted in the left shoulder. IMPRESSION: 1. Advanced emphysema. 2. Airspace opacities are present both lung bases. This could represent scarring/atelectasis versus a mild infectious/inflammatory pneumonitis. Clinical correlation will be required and radiographic follow-up to resolution is recommended. 3. Additional findings as above. ACT 112: Negative or not required by law. Electronically signed by: Solo Dooley M.D. 11/13/2021 11:45 AM Dictated:11/13/21 1142 Transcribed: 11/13/21 1142 Hospital Course (1) Acute and chronic respiratory failure with hypercapnia: (2) Acute respiratory acidosis: (3) COPD exacerbation: (4) HTN (hypertension): This is a 66-year-old female who has significant past medical history of chronic respiratory failure with hypercarbia on 5 L of O2, severe COPD emphysema time, T2DM, HTN, HLD, GERD, tobacco abuse who presents ED secondary to worsening shortness of breath x5 days. Acute on chronic respiratory failure with hypercapnia Acute respiratory acidosis COPD exacerbation ABG showed high CO2 of [address] of the chest showed severe emphysematous changes and scarring compatible with history of COPD without any acute abnormalities Appreciate pulmonary input and recommendation IV Levaquin 500 mg daily She was started on IV Solu-Medrol 40 mg 3 times daily then transition to oral prednisone from 11/15/2021 Continue Budesonide neb, formoterol neb, and DuoNeb 4 times daily prn Continue Incentive spirometry, flutter valve Pulm on board recommended trilogy on discharge Sputum cx no growth Strongly advise for smoking cessation Continue prednisone taper course Clinically improve significantly Script signed and given to case management for the trilogy Will discharge on Pulmicort and Perforomist, Spiriva Continue supplemental oxygen to maintain saturations of 88 to 92%. Continue incentive spirometry and flutter valve HTN continue lisinopril T2DM Most recent hgb a1c 5.5 on 11/14/21 not on any hypoglycemics question if true t2dm vs pre dm Continue monitor accuchecks with steroid use if consistently elevated will add coverage HLD continue statin DVT ppx: SQ Heparin bid Code status DNR/DNI PCP: Jono Dispo: Possible discharge today Total Time Total Time Spent Total Time Spent (In Minutes): 35 minutes Discharge Plan Discharge Items Patient Disposition: Home - Home Health Services Reason For Visit: COPD EXACERBATION, ACUTE ON CHRONIC RESPIRATORY FA Discharge Diagnosis: Acute and chronic respiratory failure with hypercapnia: Acute respiratory acidosis: COPD exacerbation: HTN (hypertension): Diabetes Activity: Resume your previous activity Non-emergency contact: Primary Care Provider and Statement Clerks Supervisor Call non-emergency contact if: you have any medication questions and your symptoms worsen Follow-up/Referrals: Damir De La Cruz MD [Primary Care Provider] - (Date & Time 11/20/2021 11:20 AM Provider Damir De La Cruz MD Department [facility] ) Diet: Carb Consistent or DM2 Addtl Attending Provider Instructions: You were admitted at [facility] for shortness of breath. You were starting on bipap machine to help with your breathing. Follow up with your primary care provider on 11/20/2021 @ 11:20 AM at the [facility] Follow up with your pulmonology ( please call for the follow up appointment) Continue Incentive spirometry and flutter valve Continue oxygen supplement to keep oxygen saturation between 88 to 92% Continue to use the trilogy at night and as needed during the day Counseling on smoking cessation Fall precaution Pending Studies at Discharge: No Stand-Alone Forms: My [facility], Smoking Cessation Medications and DC Order Prescriptions: New budesonide 0.5 mg/2 mL Suspension For Nebulization 0.5 mg NEB BIDR 30 Days Qty: 60 RF: 0 formoterol fumarate [Perforomist] 20 mcg/2 mL Solution For Nebulization 20 mcg NEB BID 30 Days Qty: 1 RF: 0 guaifenesin 200 mg tablet 200 mg PO TID PRN (Reason: cough) Qty: 30 RF: 0 prednisone 10 mg Tablet 30 mg PO DAILY 4 Days Qty: 12 RF: 0 Continued albuterol sulfate 2.5 mg /3 mL (0.083 %) solution for nebulization 2.5 mg INH Q4H PRN (Reason: shortness of breath or wheezing) Qty: 540 RF: 11 aspirin [Adult Low Dose Aspirin] 81 mg tablet,delayed release (DR/EC) 81 mg PO QAM RF: 0 atorvastatin 10 mg tablet 10 mg PO HS RF: 0 trazodone 50 mg tablet 75 mg PO HS RF: 0 lisinopril 5 mg tablet 5 mg PO HS RF: 0 loratadine 10 mg capsule 10 mg PO DAILY PRN (Reason: allergies) RF: 0 meloxicam 15 mg tablet 15 mg PO HS RF: 0 albuterol sulfate [Ventolin HFA] 90 mcg/actuation HFA aerosol inhaler 2 puffs INH QID PRN (Reason: sob) RF: 0 multivitamin Tablet 1 tab PO DAILY RF: 0 vitamin B complex Capsule 1 cap PO DAILY RF: 0 esomeprazole magnesium 20 mg Capsule,Delayed Release(Dr/Ec) 20 mg PO QAM RF: 0 tramadol 50 mg tablet 50 mg PO Q6H PRN (Reason: Pain) RF: 0 zinc 50 mg Tablet 220 mg PO DAILY RF: 0 Discontinued fluticasone propion-salmeterol 230-21 mcg/actuation Hfa Aerosol Inhaler 2 puff INHALATION Q12H RF: 0 azithromycin 250 mg tablet 250 mg PO QAM RF: 0 No Action Spiriva Respimat 2.5 mcg/actuation mist 2 inh inhalation QAM Qty: 4 RF: 2 Discharge Orders: Discharge Order (Routine); Ordered 11/18/21 Ordered By: Krystal Gonzales Admission Data Admit Date/Time: 11/13/21 12:46 Attending Provider: Krystal Gonzales Admit Provider: Michael Temple Primary Care Provider: Damir De La Cruz Other Providers: Michael Temple ; Noah Thomas ; Kika Saleh ; [place] Other Interventions: Discharge Summary Assessment (RN) Last Done: 11/18/21 13:41
[2021-11-18] MEDS: MULTIVITAMIN TAB PO SCH (14:07)
[2021-11-18] MEDS: VITAMIN B COMPLEX TAB PO SCH (14:07)
[2021-11-18] MEDS: ZINC SULFATE 220 MG CAPSULE PO SCH (14:07)
== END 2021-11-18 14:22 | disposition home health service (06) | DRG 190 ==
LOC: ED 10:44 → 2E 12:46 → SUATTDRO 12:46 → 2E 14:21

== ENCOUNTER 2023-01-10 18:59 | Inpatient (IN) ==
[2023-01-10] MEDS ORDERED: ALBUT/IPRATROP 3MG/0.5MG NEB 3 ML VIAL NEB ONE (19:05)
--- NOTE | 2023-01-10 19:13 | Emergency Department Note ---
Impression & Plan Shortness of breath, Chronic hypercapnic respiratory failure, Acute exacerbation of chronic obstructive pulmonary disease ED Provider Note HISTORY OF PRESENT ILLNESS: Patient is a 67-year-old female presenting with shortness of breath. Patient reports has been having progressively worsening shortness of breath for the last 4 days. Reports has been using continuous breathing treatments at home without any relief in symptoms. She normally wears 6 L nasal cannula at baseline, but has been increasing up to 7 throughout the day. She wears a trilogy at nighttime. Denies any DVT or PE history. She is on a baby aspirin daily. Reports a nonproductive cough. Reports she takes azithromycin 3 times a week and last took a dose 2 days ago. Denies any recent steroid use. Denies any chest pain, just reports that it feels very tight and difficult to breathe. Denies any recent fevers or recent sick contact exposures ROS: as above PHYSICAL EXAM: Constitutional: Patient appears in no acute distress. HENT: Head: Normocephalic and atraumatic. Eyes: EOMI, PERRL Mouth/Throat: Mucous membranes moist. Neck: Trachea midline. Neck supple. Cardiovascular: Tachycardic with regular rhythm. No murmurs, rubs or gallops. Intact distal pulses. Pulmonary/Chest: Barrel chested. Patient on 7 L nasal cannula. Tachypneic. Decreased breath sounds in bilateral lung bases. She has expiratory wheezes in the bilateral apical lung wu. Abdominal: BS +. Abdomen soft, no tenderness, rebound or guarding. Musculoskeletal: No edema, tenderness or deformity noted. Skin: Warm and dry. No rash, erythema, pallor or cyanosis Psychiatric: Appropriate mood and affect for situation. Neurological: Alert and keenly responsive. CN II-XII grossly intact, moving all extremities equally and fully. MDM: - Vitals signs showed tachycardia. - History obtained via patient. Patient presents with shortness of breath. Patient reports progressively worsening shortness of breath over the last 4 days. She is using continuous breathing treatments at home without much relief in symptoms. She has been increasing her supplemental oxygen without any imp rovement in her symptoms. Reports she could not catch her breath today, so she called 911. Denies any chest pain, but reports her chest feels very tight and difficult to breathe. Denies any DVT or PE history. - Chronic conditions affecting care: COPD (on 6L NC); HTN; HLD - Differential diagnoses include, but are not limited to: Congestive heart failure; acute coronary syndrome; COPD/asthma exacerbation; pulmonary edema; pulmonary embolism; pneumonia; pneumothorax; viral syndrome - Order placed for continuous cardiac monitoring. At this time, monitor showed rate of 109 bpm with normal sinus rhythm, per my interpretation. - External medical records reviewed. EMS run sheet reviewed. Patient was given 125 mg Solu-Medrol in route. Given a DuoNeb treatment in route. - EKG reviewed by myself showed normal sinus rhythm. Rate tachycardic at 100 bpm. QTc 405. No acute ischemic changes. - Laboratory workup interpreted by myself showed normal WBC; stable electrolytes; normal troponin; normal BNP - Biofire negative - CXR negative for pneumonia, per my interpretation. - VBG showed hypercarbic respiratory acidosis. Patient was agreeable to getting placed on BiPAP. - Patient given continuous albuterol treatment in ER. - IV doxycycline and rocephin ordered for antibiotic coverage. - Repeat VBG after 1 hour on BiPAP shows improved hypercarbia. - Discussion was had with web content & social media manager about patient's case and need for admission - Hospitalist, Dr. Donato, consulted for admission. - [facility] ASSESSMENT AND PLAN: Diagnosis: shortness of breath; COPD exacerbation; hypercarbic respiratory failure Plan: admit Past Med/Surg History Medical History (Updated 01/10/23 @ 21:22 by Jil Osborn MD) Acute and chronic respiratory failure with hypercapnia Acute respiratory acidosis Chronic hypercapnic respiratory failure Chronic hypoxemic respiratory failure COPD exacerbation COPD, very severe History of gastroesophageal reflux (GERD) History of hyperlipidemia HTN (hypertension) Hypoxemia Pulmonary emphysema Therapeutic drug monitoring Tobacco abuse counseling Surgical History History of appendectomy History of tonsillectomy History of tubal ligation Family History Father Coronary heart disease Mother Pancreatic cancer Brother Brain tumor Sister Myocardial infarction Social History (Updated 11/13/21 @ 13:28 by Edna Howard PA-C) Smoking Status: Never smoker Cigarettes Per Day: lifelong smoker- now down to 2 per day; Hx Alcohol Use: No Hx Substance Use: No Preferred Language: Lao Communication Ability: Effective 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 Beliefs That Will Affect Care: None Current Living Situation: Family Current Living Situation Comment: son lives upstairs Feels Safe at Home: Yes Assistive Devices: Oxygen - Continuous Allergies Allergies Allergy/AdvReac Type Severity Reaction Status Date / Time prednisone AdvReac Intermediate Confusion/PSYCH Verified 01/10/23 20:39 COMPLICATIONS PER [facility] MED LIST Home Meds Home Medications Medication Instructions Recorded Confirmed aspirin 81 mg tablet,delayed 81 mg PO QAM 05/25/19 01/10/23 release (Adult Low Dose Aspirin) atorvastatin 10 mg tablet 10 mg PO HS 05/25/19 01/10/23 lisinopril 5 mg tablet 5 mg PO QAM 05/25/19 01/10/23 loratadine 10 mg capsule 10 mg PO DAILY PRN allergies 05/25/19 01/10/23 trazodone 50 mg tablet 75 mg PO HS 05/25/19 01/10/23 albuterol sulfate 90 mcg/actuation 2 puffs inhalation Q4H PRN 05/26/19 01/10/23 aerosol inhaler (Ventolin HFA) Shortness Of Breath meloxicam 15 mg tablet 15 mg PO QAM 05/26/19 01/10/23 esomeprazole magnesium 20 mg 20 mg PO DAILYBB 11/13/21 01/10/23 capsule,delayed release multivitamin 1 tab PO DAILY 11/13/21 01/10/23 tramadol 50 mg tablet 50 mg PO Q6H PRN Pain, Moderate 11/13/21 01/10/23 vitamin B complex 1 cap PO DAILY 11/13/21 01/10/23 budesonide 0.5 mg/2 mL suspension 0.5 mg inhalation BID 01/10/23 01/10/23 for nebulization guaifenesin 600 mg tablet, 600 mg PO BID 01/10/23 01/10/23 extended release 12 hr (Mucinex) zinc sulfate 50 mg zinc (220 mg) 50 mg PO DAILY 01/10/23 01/10/23 tablet Previous Rx's Medication Instructions Recorded albuterol sulfate 2.5 mg/3 mL 2.5 mg (3 mL) inhalation Q4H PRN 02/18/21 (0.083 %) solution for nebulization shortness of breath or wheezing #540 mL Portable Oxygen #1 ea 07/17/22 tiotropium bromide 2.5 2 inh inhalation QAM #4 grams 12/07/22 mcg/actuation mist for inhalation (Spiriva Respimat) arformoterol 15 mcg/2 mL solution 2 ml inhalation BID #120 mL 01/07/23 for nebulization Results & Data (ED) Vital Signs Vital Signs - 24 hr 01/10/23 19:07 01/10/23 19:07 01/10/23 19:13 Temperature 37.2 C Temperature Source Temporal Artery Scan Pulse Rate 101 H Pulse Rate [Finger] Respiratory Rate 22 Respiratory Effort / Characteristics Non-Labored Spontaneous Respiratory Depth Normal Blood Pressure 136/99 Blood Pressure [Left Arm] Blood Pressure Mean 111 Blood Pressure Mean [Left Arm] Pulse Oximetry 100 100 100 Oxygen Delivery Method Nasal Cannula Nasal Cannula Nasal Cannula Oxygen Flow Rate 6 6 6 Fraction of Inspired Oxygen Sepsis Recent Fever Within 48 Hours No Sepsis New/Unexplained Change in Mental Status N/A Sepsis Action Taken by Nursing No Action Required 01/10/23 19:08 01/10/23 19:25 01/10/23 19:48 Temperature Temperature Source Pulse Rate 120 H 117 H Pulse Rate [Finger] 102 H Respiratory Rate 22 18 Respiratory Effort / Characteristics Spontaneous Short of Breath Respiratory Depth Blood Pressure Blood Pressure [Left Arm] Blood Pressure Mean Blood Pressure Mean [Left Arm] Pulse Oximetry 100 98 Oxygen Delivery Method Nasal Cannula Oxygen Flow Rate 4 Fraction of Inspired Oxygen 30 Sepsis Recent Fever Within 48 Hours Sepsis New/Unexplained Change in Mental Status Sepsis Action Taken by Nursing 01/10/23 19:53 Temperature Temperature Source Pulse Rate Pulse Rate [Finger] 118 H Respiratory Rate 15 Respiratory Effort / Characteristics Respiratory Depth Blood Pressure Blood Pressure [Left Arm] 153/79 H Blood Pressure Mean Blood Pressure Mean [Left Arm] 103 Pulse Oximetry 95 Oxygen Delivery Method BiPAP Oxygen Flow Rate Fraction of Inspired Oxygen Sepsis Recent Fever Within 48 Hours Sepsis New/Unexplained Change in Mental Status Sepsis Action Taken by Nursing Laboratory Data 01/10/23 19:10 01/10/23 19:10 Lab Results 01/10/23 01/10/23 01/10/23 Range/Units 19:10 19:10 19:10 WBC 7.59 (4.8-10.8) K/ul RBC 3.70 L (4.20-5.40) M/uL Hgb 11.3 L (12.0-16.0) g/dl Hct 37.5 (37.0-47.0) % MCV 101.4 H (80.0-100.0) fL MCH 30.5 (25.0-34.0) pg MCHC 30.1 L (32.0-36.0) g/dL RDW Std Deviation 40.3 (36.4-46.3) fL RDW Coeff of Patricia 10.8 L (11.5-14.5) % Plt Count 169 (130-400) K/uL MPV 8.8 L (9.4-12.4) fL Immature Gran % (Auto) 0.3 % Neut % (Auto) 69.4 % Lymph % (Auto) 17.9 % [place] % (Auto) 10.7 % Eos % (Auto) 1.2 % Baso % (Auto) 0.5 % Neut # (Auto) 5.27 (1.40-6.50) K/uL Lymph # (Auto) 1.36 (1.2-3.4) K/uL [place] # (Auto) 0.81 H (0.11-0.59) K/uL Eos # (Auto) 0.09 (0-0.50) K/uL Baso # (Auto) 0.04 (0-0.2) K/uL Immature Gran # (Auto) 0.02 (0.01-0.20) K/uL VBG pH (7.36-7.41) VBG pCO2 (38-50) mmHg VBG pO2 mmHg VBG HCO3 mmol/L VBG O2 Saturation % VBG Base Excess mEq/L Sodium 135 L (136-145) mmol/L Potassium 4.7 (3.5-5.1) mmol/L Chloride 87 L (98-107) mmol/L Carbon Dioxide > 45 H* (21-32) mmol/L Anion Gap TNP BUN 13 (6-23) mg/dl Creatinine 0.51 L (0.6-1.2) mg/dl Est Cr Clr Drug Dosing 105.5 ml/min Est GFR ( Amer) 115.3 ml/min Est GFR (Non-Af Amer) 99.5 ml/min BUN/Creatinine Ratio 25.5 H (10-20) Glucose 100 H (70-99(Fasting)) mg/dl Calcium 9.8 (8.6-10.3) mg/dl Magnesium 2.1 (1.7-2.4) mg/dl Total Bilirubin 0.3 (0.2-1.0) mg/dl AST 24 (13-39) U/L ALT 18 (7-52) U/L Alkaline Phosphatase 80 (34-104) U/L Troponin I High Sens 6.2 (0-14) pg/ml B-Natriuretic Peptide 23 (0-100) pg/ml Total Protein 6.8 (6.0-8.3) gm/dl Albumin 4.3 (3.4-5.0) gm/dl Globulin 2.5 (2.5-4.0) gm/dl Albumin/Globulin Ratio 1.7 (0.9-2) Adenovirus (PCR) (NotDetected) B. pertussis DNA (PCR) (NotDetected) B.parapertussis DNA PCR (NotDetected) C. pneumoniae DNA (PCR) (NotDetected) Coronavirus OC43 (PCR) (NotDetected) Coronavirus HKU1 (PCR) (NotDetected) Coronavirus 229E (PCR) (NotDetected) SARS-CoV-2 (PCR) (NotDetected) Coronavirus NL63 (PCR) (NotDetected) Human Metapneumovir PCR (NotDetected) Influenza Type A (PCR) (NotDetected) Influenza Type B (PCR) (NotDetected) M. pneumoniae (PCR) (NotDetected) Parainfluenza 1 (PCR) (NotDetected) Parainfluenza 2 (PCR) (NotDetected) Parainfluenza 3 (PCR) (NotDetected) Parainfluenza 4 (PCR) (NotDetected) RSV (PCR) (NotDetected) Entero/Rhino (PCR) (NotDetected) 01/10/23 01/10/23 01/10/23 Range/Units 19:15 19:27 21:04 WBC (4.8-10.8) K/ul RBC (4.20-5.40) M/uL Hgb (12.0-16.0) g/dl Hct (37.0-47.0) % MCV (80.0-100.0) fL MCH (25.0-34.0) pg MCHC (32.0-36.0) g/dL RDW Std Deviation (36.4-46.3) fL RDW Coeff of Patricia (11.5-14.5) % Plt Count (130-400) K/uL MPV (9.4-12.4) fL Immature Gran % (Auto) % Neut % (Auto) % Lymph % (Auto) % [place] % (Auto) % Eos % (Auto) % Baso % (Auto) % Neut # (Auto) (1.40-6.50) K/uL Lymph # (Auto) (1.2-3.4) K/uL [place] # (Auto) (0.11-0.59) K/uL Eos # (Auto) (0-0.50) K/uL Baso # (Auto) (0-0.2) K/uL Immature Gran # (Auto) (0.01-0.20) K/uL VBG pH 7.24 L 7.32 L (7.36-7.41) VBG pCO2 120 H 93 H (38-50) mmHg VBG pO2 37 37 mmHg VBG HCO3 51 48 mmol/L VBG O2 Saturation 62.1 68.0 % VBG Base Excess 18.0 16.9 mEq/L Sodium (136-145) mmol/L Potassium (3.5-5.1) mmol/L Chloride (98-107) mmol/L Carbon Dioxide (21-32) mmol/L Anion Gap BUN (6-23) mg/dl Creatinine (0.6-1.2) mg/dl Est Cr Clr Drug Dosing ml/min Est GFR ( Amer) ml/min Est GFR (Non-Af Amer) ml/min BUN/Creatinine Ratio (10-20) Glucose (70-99(Fasting)) mg/dl Calcium (8.6-10.3) mg/dl Magnesium (1.7-2.4) mg/dl Total Bilirubin (0.2-1.0) mg/dl AST (13-39) U/L ALT (7-52) U/L Alkaline Phosphatase (34-104) U/L Troponin I High Sens (0-14) pg/ml B-Natriuretic Peptide (0-100) pg/ml Total Protein (6.0-8.3) gm/dl Albumin (3.4-5.0) gm/dl Globulin (2.5-4.0) gm/dl Albumin/Globulin Ratio (0.9-2) Adenovirus (PCR) Not Detected (NotDetected) B. pertussis DNA (PCR) Not Detected (NotDetected) B.parapertussis DNA PCR Not Detected (NotDetected) C. pneumoniae DNA (PCR) Not Detected (NotDetected) Coronavirus OC43 (PCR) Not Detected (NotDetected) Coronavirus HKU1 (PCR) Not Detected (NotDetected) Coronavirus 229E (PCR) Not Detected (NotDetected) SARS-CoV-2 (PCR) Not Detected (NotDetected) Coronavirus NL63 (PCR) Not Detected (NotDetected) Human Metapneumovir PCR Not Detected (NotDetected) Influenza Type A (PCR) Not Detected (NotDetected) Influenza Type B (PCR) Not Detected (NotDetected) M. pneumoniae (PCR) Not Detected (NotDetected) Parainfluenza 1 (PCR) Not Detected (NotDetected) Parainfluenza 2 (PCR) Not Detected (NotDetected) Parainfluenza 3 (PCR) Not Detected (NotDetected) Parainfluenza 4 (PCR) Not Detected (NotDetected) RSV (PCR) Not Detected (NotDetected) Entero/Rhino (PCR) Not Detected (NotDetected) Administered Medications Ceftriaxone Sodium (Rocephin) 2,000 mg in 70 mls @ 140 mls/hr IV NOW STA Stop: 01/10/23 21:24 Last Admin: 01/10/23 21:17 Dose: 140 mls/hr Documented By: AB Discontinued Medications Albuterol (Albut/Ipratrop 3mg/0.5mg Neb 3 Ml Vial) 12 ml NEB ONE ONE; Protocol Stop: 01/10/23 19:06 Last Admin: 01/10/23 19:08 Dose: 12 ml Documented By: NDC Magnesium Sulfate/Dextrose (Magnesium Sulfate / D5w) 1 gm in 100 mls @ 100 ml s/hr IV NOW STA Stop: 01/10/23 20:14 Last Infusion: 01/10/23 21:08 Dose: 0 mls/hr Documented By: Admin: 01/10/23 19:51 Dose: 100 mls/hr Documented By: GEETA Imaging Data Radiologist's Impression: Chest X-Ray 01/10/23 19:09 XR chest 1V portable HISTORY: 67 years-old Female Dyspnea acute shortness of breath COMPARISON: 11/27/2022 TECHNIQUE: AP view the chest FINDINGS: Severe emphysema with chronic interstitial coarsening. 2.3 cm nodular density projects over the left lung base. No pneumothorax, pleural effusion or overt pulmonary edema. Surgical clips of the abdominal right upper quadrant. IMPRESSION: 1. Severe emphysema without acute intrathoracic abnormality. 2. 2.3 cm nodular density projects over the lateral left lung base, likely secondary to overlying summation density with ribs and nipple shadow. Follow-up radiographs with nipple markers recommended. ACT 112: Negative or not required by law. The above report was generated using voice recognition software. It may contain grammatical, syntax or spelling errors. Electronically signed by: Wilmer Landrum M.D. 01/10/2023 7:51 PM Discharge Plan Visit Data Chief Complaint: Respiratory Distress Stated Complaint: RESPIRATORY DIFFICULTY ED Provider: Jil Osborn Discharge Problem: Shortness of breath, Chronic hypercapnic respiratory failure, Acute exacerbation of chronic obstructive pulmonary disease Forms Stand Alone Forms: My [facility] Prescriptions Prescriptions: No Action albuterol sulfate 2.5 mg /3 mL (0.083 %) solution for nebulization 2.5 mg INH Q4H PRN (Reason: shortness of breath or wheezing) Qty: 540 11RF (DME) Portable Oxygen Misc See Rx Instructions .Route Qty: 1 0RF Rx Instructions: Oxygen concentrator with portability 3-4LPM via n/c with exertion to maintain O2 sats 88-93% with oxygen conserving device. DEONDRE:99 Spiriva Respimat 2.5 mcg/actuation mist 2 inh inhalation QAM Qty: 4 5RF arformoterol 15 mcg/2 mL solution for nebulization 2 ml inhalation BID Qty: 120 11RF aspirin [Adult Low Dose Aspirin] 81 mg tablet,delayed release (DR/EC) 81 mg PO QAM atorvastatin 10 mg tablet 10 mg PO HS trazodone 50 mg tablet 75 mg PO HS Rx Instructions: MAY INCREASE TO 2 TABS IN NEEDED FOR SLEEP lisinopril 5 mg tablet 5 mg PO QAM loratadine 10 mg capsule 10 mg PO DAILY PRN (Reason: allergies) meloxicam 15 mg tablet 15 mg PO QAM albuterol sulfate [Ventolin HFA] 90 mcg/actuation HFA aerosol inhaler 2 puffs INH Q4H PRN (Reason: Shortness Of Breath) multivitamin Tablet 1 tab PO DAILY vitamin B complex Capsule 1 cap PO DAILY esomeprazole magnesium 20 mg Capsule,Delayed Release(Dr/Ec) 20 mg PO DAILYBB tramadol 50 mg tablet 50 mg PO Q6H PRN (Reason: Pain, Moderate) zinc sulfate 50 mg zinc (220 mg) Tablet 50 mg PO DAILY guaifenesin [Mucinex] 600 mg Tablet Extended Release 12hr 600 mg PO BID budesonide 0.5 mg/2 mL suspension for nebulization 0.5 mg inhalation BID Referrals Referrals: Damir De La Cruz MD [Primary Care Provider] -
[2023-01-10] MEDS ORDERED: MAGNESIUM SULFATE / D5W 1 GM/100 ML BAG IV STA (19:15)
[2023-01-10 19:33] LABS: HCO3 VBG 51 mmol/L; Oxygen Saturation VBG 62.1 %; PCO2 VBG 120 mmHg (38-50); PO2 VBG 37 mmHg; pH VBG 7.24 (7.36-7.41)
[2023-01-10 19:34] LABS: Basophils # (auto) 0.04 K/uL (0-0.2); Basophils % (auto) 0.5 %; Eosinophils # (auto) 0.09 K/uL (0-0.50); Eosinophils % (auto) 1.2 %; Hematocrit (blood only) 37.5 % (37.0-47.0); Hemoglobin 11.3 g/dl (12.0-16.0); Immature Granulocytes # (auto) 0.02 K/uL (0.01-0.20); Immature Granulocytes % (auto) 0.3 %; Lymphocytes # (auto) 1.36 K/uL (1.2-3.4); Lymphocytes % (auto) 17.9 %; Mean Corpuscular Hemoglobin 30.5 pg (25.0-34.0); Mean Corpuscular Hgb Conc 30.1 g/dL (32.0-36.0); Mean Corpuscular Volume 101.4 fL (80.0-100.0); Mean Platelet Volume 8.8 fL (9.4-12.4); Monocytes # (auto) 0.81 K/uL (0.11-0.59); Monocytes % (auto) 10.7 %; Neutrophils # (auto) 5.27 K/uL (1.40-6.50); Neutrophils % (auto) 69.4 %; Platelet Count 169 K/uL (130-400); RDW Coefficient of Variation 10.8 % (11.5-14.5); RDW Standard Deviation 40.3 fL (36.4-46.3); White Blood Count 7.59 K/ul (4.8-10.8)
--- NOTE | 2023-01-10 19:52 | XRay Report ---
XR chest 1V portable HISTORY: 67 years-old Female Dyspnea acute shortness of breath COMPARISON: 11/27/2022 TECHNIQUE: AP view the chest FINDINGS: Severe emphysema with chronic interstitial coarsening. 2.3 cm nodular density projects over the left lung base. No pneumothorax, pleural effusion or overt pulmonary edema. Surgical clips of the abdomina l right upper quadrant. IMPRESSION: 1. Severe emphysema without acute intrathoracic abnormality. 2. 2.3 cm nodular density projects over the lateral left lung base, likely secondary to overlying sum mation density with ribs and nipple shadow. Follow-up radiographs with nipple markers recommended. ACT 112: Negative or not required by law. The above report was generated using voice recognition software. It may contain grammatical, syntax o r spelling errors. Electronically signed by: Wilmer Landrum M.D. 01/10/2023 7:51 PM
[2023-01-10 19:59] LABS: Alanine Aminotransferase 18 U/L (7-52); Albumin Globulin Ratio 1.7 (0.9-2); Albumin Level 4.3 gm/dl (3.4-5.0); Alkaline Phosphatase 80 U/L (34-104); Aspartate Aminotransferase 24 U/L (13-39); BUN Creatinine Ratio 25.5 (10-20); Bilirubin,Total 0.3 mg/dl (0.2-1.0); Blood Urea Nitrogen 13 mg/dl (6-23); Calcium 9.8 mg/dl (8.6-10.3); Carbon Dioxide > 45 mmol/L (21-32); Chloride 87 mmol/L (98-107); Creatinine Clr Calc Pharmacy 105.5 ml/min; Est GFR (African American) 115.3 ml/min; Est GFR (Non-African American) 99.5 ml/min; Globulin 2.5 gm/dl (2.5-4.0); Glucose 100 mg/dl (70-99(Fasting)); Magnesium 2.1 mg/dl (1.7-2.4); Potassium 4.7 mmol/L (3.5-5.1); Sodium 135 mmol/L (136-145); Total Protein 6.8 gm/dl (6.0-8.3); Troponin I High Sensitivity 6.2 pg/ml (0-14)
[2023-01-10 20:13] LABS: Adenovirus PCR Not Detected (NotDetected); Bordetella parapertussis PCR Not Detected (NotDetected); Bordetella pertussis PCR Not Detected (NotDetected); Chlamydia pneumoniae PCR Not Detected (NotDetected); Coronavirus 229E PCR Not Detected (NotDetected); Coronavirus CoV-2 (COVID19)PCR Not Detected (NotDetected); Coronavirus HKU1 PCR Not Detected (NotDetected); Coronavirus NL63 PCR Not Detected (NotDetected); Coronavirus OC43PCR Not Detected (NotDetected); Human Metapneumovirus PCR Not Detected (NotDetected); Influenza A PCR Not Detected (NotDetected); Influenza B PCR Not Detected (NotDetected); Mycoplasma pneumoniae PCR Not Detected (NotDetected); Parainfluenza Virus 1 PCR Not Detected (NotDetected); Parainfluenza Virus 2 PCR Not Detected (NotDetected); Parainfluenza Virus 3 PCR Not Detected (NotDetected); Parainfluenza Virus 4 PCR Not Detected (NotDetected); Respiratory Syncytial VirusPCR Not Detected (NotDetected); Rhinovirus/Enterovirus PCR Not Detected (NotDetected)
[2023-01-10] MEDS ORDERED: cefTRIAXone SODIUM 2,000 MG/70 ML BAG IV STA (20:55)
[2023-01-10] MEDS ORDERED: DOXYCYCLINE HYCLATE 100 MG in DEXTROSE 5% 100 ML IV STA (20:55)
[2023-01-10 21:10] LABS: Base Excess VBG 16.9 mEq/L; HCO3 VBG 48 mmol/L; PCO2 VBG 93 mmHg (38-50); PO2 VBG 37 mmHg; pH VBG 7.32 (7.36-7.41)
[2023-01-10] MEDS ORDERED: LORazepam 2 MG/1 ML VIAL IV STA (21:54)
--- NOTE | 2023-01-10 23:38 | History & Physical Report ---
Date of Service January 10, 2023 Assessment & Plan (1) Acute exacerbation of chronic obstructive pulmonary disease: Plan: 67-year-old female presents with acute respiratory distress, acute on chronic respiratory failure, COPD exasperation. On home oxygen 6 L oxygen. Acute on chronic hypoxic hypercarbic respiratory failure. On BiPAP. On IV steroids, nebs [id number] and as needed, home inhalers, IV Rocephin and doxycycline. At home on azithromycin 3 times a week History of severe COPD. Seems ongoing tobacco abuse. Will discuss when patient is more awake. Pulmonary consult in a.m. Monitor in telemetry floor. Follow repeat ABG. Type 2 diabetes Not on meds We will follow HbA1c levels. Monitor sugars while on steroids. Hypertension On lisinopril we will monitor the blood pressure Hyperlipidemia. On statin. DVT prophylaxis Lovenox. Disposition Close monitoring telemetry floor. CODE STATUS full code for now. To discuss when patient is awake. History of Present Illness Chief Complaint: Respiratory distress. COPD exacerbation. Primary Care Provider: Damir De La Cruz MD 67-year-old female with past medical history significant for type 2 diabetes, diabetic polyneuropathy, Sever COPD, chronic rhinitis, hypertension, reflux esophagitis, depression, tobacco abuse presents with respiratory distress and COPD exacerbation. Patient is on home oxygen 6 L chronically. As per ER she had ongoing cough for 1 week but the last couple of days got worse and she was requiring 7 L of oxygen today. In the ER her serum CO2 was 120 and pH was 7.24. Placed on BiPAP and other CO2 and pH was improving. In the ER she was given IV Ativan 0.5 mg and currently very drowsy and could not get any history from the patient currently. Patient afebrile. Opens eyes and says she is feeling better. Past medical history as mentioned above Past surgical history: Colposcopy. Cryocautery of cervix. Cystoscopy. Dental surgery. Ligation of oviducts. 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 Tonsillectomy and adenoidectomy. Allergies Allergy/AdvReac Type Severity Reaction Status Date / Time prednisone AdvReac Intermediate Confusion/PSYCH Verified 01/10/23 20:39 COMPLICATIONS PER GM MED LIST Home Medications Medication Instructions Recorded Confirmed Type aspirin 81 mg tablet,delayed 81 mg PO QAM 05/25/19 01/10/23 History release (Adult Low Dose Aspirin) atorvastatin 10 mg tablet 10 mg PO HS 05/25/19 01/10/23 History lisinopril 5 mg tablet 5 mg PO QAM 05/25/19 01/10/23 History loratadine 10 mg capsule 10 mg PO DAILY PRN allergies 05/25/19 01/10/23 History trazodone 50 mg tablet 75 mg PO HS 05/25/19 01/10/23 History albuterol sulfate 90 mcg/actuation 2 puffs inhalation Q4H PRN 05/26/19 01/10/23 History aerosol inhaler (Ventolin HFA) Shortness Of Breath meloxicam 15 mg tablet 15 mg PO QAM 05/26/19 01/10/23 History albuterol sulfate 2.5 mg/3 mL 2.5 mg (3 mL) inhalation Q4H PRN 02/18/21 01/10/23 Rx (0.083 %) solution for nebulization shortness of breath or wheezing #540 mL esomeprazole magnesium 20 mg 20 mg PO DAILYBB 11/13/21 01/10/23 History capsule,delayed release multivitamin 1 tab PO DAILY 11/13/21 01/10/23 History tramadol 50 mg tablet 50 mg PO Q6H PRN Pain, Moderate 11/13/21 01/10/23 History vitamin B complex 1 cap PO DAILY 11/13/21 01/10/23 History Portable Oxygen #1 ea 07/17/22 Rx tiotropium bromide 2.5 2 inh inhalation QAM #4 grams 12/07/22 01/10/23 Rx mcg/actuation mist for inhalation (Spiriva Respimat) arformoterol 15 mcg/2 mL solution 2 ml inhalation BID #120 mL 01/07/23 01/10/23 Rx for nebulization budesonide 0.5 mg/2 mL suspension 0.5 mg inhalation BID 01/10/23 01/10/23 History for nebulization guaifenesin 600 mg tablet, 600 mg PO BID 01/10/23 01/10/23 History extended release 12 hr (Mucinex) zinc sulfate 50 mg zinc (220 mg) 50 mg PO DAILY 01/10/23 01/10/23 History tablet Past Med/Surg History Medical History (Updated 01/10/23 @ 21:22 by Jil Osborn MD) Acute and chronic respiratory failure with hypercapnia Acute respiratory acidosis Chronic hypercapnic respiratory failure Chronic hypoxemic respiratory failure COPD exacerbation COPD, very severe History of gastroesophageal reflux (GERD) History of hyperlipidemia HTN (hypertension) Hypoxemia Pulmonary emphysema Therapeutic drug monitoring Tobacco abuse counseling Surgical History History of appendectomy History of tonsillectomy History of tubal ligation Family History Father Coronary heart disease Mother Pancreatic cancer Brother Brain tumor Sister Myocardial infarction Social History (Updated 11/13/21 @ 13:28 by Edna Howard PA-C) Smoking Status: Never smoker Cigarettes Per Day: lifelong smoker- now down to 2 per day; Hx Alcohol Use: No Hx Substance Use: No Preferred Language: Swazi Communication Ability: Effective Barrel Inspector Required: No Beliefs That Will Affect Care: None Current Living Situation: Family Current Living Situation Comment: son lives upstairs Feels Safe at Home: Yes Assistive Devices: Oxygen - Continuous Review of Systems Review of Systems: Unobtainable due to reduced consciousness Physical Exam Physical Exam: NEEDS EDITING General- adult Head- atraumatic Eyes- PERRL, Lungs- Diminished bilateral breath sounds, mild tachypnea Heart- regular rhythm; no murmur, no gallop, no rub appreciated Abdomen- normal bowel sounds, soft, nontender, no masses or hepatosplenomegaly Extremities- no pretibial edema, no erythema. Neuro- drowsy, opens eyes on calling and goes back to sleep. moving extremities for painful stimuli Skin- warm & dry Results & Data Results & Data Vital Signs (Past 12 Hours) Vital Signs Temp Pulse Pulse Resp BP BP Pulse Ox 01/10/23 22:55 100 H 19 98 01/10/23 19:53 118 H 15 153/79 H 95 01/10/23 19:48 117 H 18 98 01/10/23 19:25 120 H 01/10/23 19:08 102 H 22 100 01/10/23 19:13 100 01/10/23 19:07 100 01/10/23 19:07 37.2 C 101 H 22 136/99 100 O2 Del Method O2 Flow Rate FiO2 01/10/23 22:55 30 01/10/23 19:53 BiPAP 01/10/23 19:48 30 01/10/23 19:25 01/10/23 19:08 Nasal Cannula 4 01/10/23 19:13 Nasal Cannula 6 01/10/23 19:07 Nasal Cannula 6 01/10/23 19:07 Nasal Cannula 6 Diagnostic Findings Laboratory Results WBC 7.59 K/ul (4.8-10.8) 01/10/23 19:10 RBC 3.70 M/uL (4.20-5.40) L 01/10/23 19:10 Hgb 11.3 g/dl (12.0-16.0) L 01/10/23 19:10 Hct 37.5 % (37.0-47.0) 01/10/23 19:10 MCV 101.4 fL (80.0-100.0) H 01/10/23 19:10 MCH 30.5 pg (25.0-34.0) 01/10/23 19:10 MCHC 30.1 g/dL (32.0-36.0) L 01/10/23 19:10 RDW Std Deviation 40.3 fL (36.4-46.3) 01/10/23 19:10 RDW Coeff of Patricia 10.8 % (11.5-14.5) L 01/10/23 19:10 Plt Count 169 K/uL (130-400) 01/10/23 19:10 MPV 8.8 fL (9.4-12.4) L 01/10/23 19:10 Immature Gran % (Auto) 0.3 % 01/10/23 19:10 Neut % (Auto) 69.4 % 01/10/23 19:10 Lymph % (Auto) 17.9 % 01/10/23 19:10 [place] % (Auto) 10.7 % 01/10/23 19:10 Eos % (Auto) 1.2 % 01/10/23 19:10 Baso % (Auto) 0.5 % 01/10/23 19:10 Neut # (Auto) 5.27 K/uL (1.40-6.50) 01/10/23 19:10 Lymph # (Auto) 1.36 K/uL (1.2-3.4) 01/10/23 19:10 [place] # (Auto) 0.81 K/uL (0.11-0.59) H 01/10/23 19:10 Eos # (Auto) 0.09 K/uL (0-0.50) 01/10/23 19:10 Baso # (Auto) 0.04 K/uL (0-0.2) 01/10/23 19:10 Immature Gran # (Auto) 0.02 K/uL (0.01-0.20) 01/10/23 19:10 VBG pH 7.32 (7.36-7.41) L 01/10/23 21:04 VBG pCO2 93 mmHg (38-50) H 01/10/23 21:04 VBG pO2 37 mmHg 01/10/23 21:04 VBG HCO3 48 mmol/L 01/10/23 21:04 VBG O2 Saturation 68.0 % 01/10/23 21:04 VBG Base Excess 16.9 mEq/L 01/10/23 21:04 Sodium 135 mmol/L (136-145) L 01/10/23 19:10 Potassium 4.7 mmol/L (3.5-5.1) 01/10/23 19:10 Chloride 87 mmol/L (98-107) L 01/10/23 19:10 Carbon Dioxide > 45 mmol/L (21-32) H* 01/10/23 19:10 Anion Gap TNP 01/10/23 19:10 BUN 13 mg/dl (6-23) 01/10/23 19:10 Creatinine 0.51 mg/dl (0.6-1.2) L 01/10/23 19:10 Est Cr Clr Drug Dosing 105.5 ml/min 01/10/23 19:10 Est GFR ( Amer) 115.3 ml/min 01/10/23 19:10 Est GFR (Non-Af Amer) 99.5 ml/min 01/10/23 19:10 BUN/Creatinine Ratio 25.5 (10-20) H 01/10/23 19:10 Glucose 100 mg/dl (70-99(Fasting)) H 01/10/23 19:10 Calcium 9.8 mg/dl (8.6-10.3) 01/10/23 19:10 Magnesium 2.1 mg/dl (1.7-2.4) 01/10/23 19:10 Total Bilirubin 0.3 mg/dl (0.2-1.0) 01/10/23 19:10 AST 24 U/L (13-39) 01/10/23 19:10 ALT 18 U/L (7-52) 01/10/23 19:10 Alkaline Phosphatase 80 U/L (34-104) 01/10/23 19:10 Troponin I High Sens 6.2 pg/ml (0-14) 01/10/23 19:10 B-Natriuretic Peptide 23 pg/ml (0-100) 01/10/23 19:10 Total Protein 6.8 gm/dl (6.0-8.3) 01/10/23 19:10 Albumin 4.3 gm/dl (3.4-5.0) 01/10/23 19:10 Globulin 2.5 gm/dl (2.5-4.0) 01/10/23 19:10 Albumin/Globulin Ratio 1.7 (0.9-2) 01/10/23 19:10 Adenovirus (PCR) Not Detected (NotDetected) 01/10/23 19:15 B. pertussis DNA (PCR) Not Detected (NotDetected) 01/10/23 19:15 B.parapertussis DNA PCR Not Detected (NotDetected) 01/10/23 19:15 C. pneumoniae DNA (PCR) Not Detected (NotDetected) 01/10/23 19:15 Coronavirus OC43 (PCR) Not Detected (NotDetected) 01/10/23 19:15 Coronavirus HKU1 (PCR) Not Detected (NotDetected) 01/10/23 19:15 Coronavirus 229E (PCR) Not Detected (NotDetected) 01/10/23 19:15 SARS-CoV-2 (PCR) Not Detected (NotDetected) 01/10/23 19:15 Coronavirus NL63 (PCR) Not Detected (NotDetected) 01/10/23 19:15 Human Metapneumovir PCR Not Detected (NotDetected) 01/10/23 19:15 Influenza Type A (PCR) Not Detected (NotDetected) 01/10/23 19:15 Influenza Type B (PCR) Not Detected (NotDetected) 01/10/23 19:15 M. pneumoniae (PCR) Not Detected (NotDetected) 01/10/23 19:15 Parainfluenza 1 (PCR) Not Detected (NotDetected) 01/10/23 19:15 Parainfluenza 2 (PCR) Not Detected (NotDetected) 01/10/23 19:15 Parainfluenza 3 (PCR) Not Detected (NotDetected) 01/10/23 19:15 Parainfluenza 4 (PCR) Not Detected (NotDetected) 01/10/23 19:15 RSV (PCR) Not Detected (NotDetected) 01/10/23 19:15 Entero/Rhino (PCR) Not Detected (NotDetected) 01/10/23 19:15 Impressions Chest X-Ray 01/10/23 19:09 XR chest 1V portable HISTORY: 67 years-old Female Dyspnea acute shortness of breath COMPARISON: 11/27/2022 TECHNIQUE: AP view the chest FINDINGS: Severe emphysema with chronic interstitial coarsening. 2.3 cm nodular density projects over the left lung base. No pneumothorax, pleural effusion or overt pulmonary edema. Surgical clips of the abdominal right upper quadrant. IMPRESSION: 1. Severe emphysema without acute intrathoracic abnormality. 2. 2.3 cm nodular density projects over the lateral left lung base, likely secondary to overlying summation density with ribs and nipple shadow. Follow-up radiographs with nipple markers recommended. ACT 112: Negative or not required by law. The above report was generated using voice recognition software. It may contain grammatical, syntax or spelling errors. Electronically signed by: Wilmer Landrum M.D. 01/10/2023 7:51 PM Code Status & VTE Plan VTE Prophylaxis Plan VTE Prophylaxis will be ordered: Yes
[2023-01-11] MEDS ORDERED: ACETAMINOPHEN 325 MG TAB PO PRN (00:40)
[2023-01-11] MEDS ORDERED: POLYETHYLENE (MIRALAX) 17 GM PACK PO PRN (00:40)
[2023-01-11] MEDS ORDERED: ALBUTEROL 0.083% NEBU SOLN 3 ML VIAL INH PRN (00:40)
[2023-01-11] MEDS ORDERED: NITROGLYCERIN SL 0.4 MG/TAB TAB SL PRN (00:40)
[2023-01-11] MEDS ORDERED: ALBUTEROL HFA 8 GM INHALER INH PRN (00:40)
[2023-01-11] MEDS ORDERED: LORATADINE 10 MG TAB PO PRN (00:59)
[2023-01-11 01:48] LABS: Appearance Urine Clear (Clear); Bacteria Urine Automated Negative (Negative); Bilirubin Urine Negative (Negative); Blood Urine Negative (Negative); Cast Urine Automated 0 /lpf (0-5); Color Urine Yellow; Epithelial Cell Urine Auto 20-30 /lpf (0-5); Glucose Urine UA Negative (Negative); Ketones Urine 3+ (Negative); Leukocyte Esterase Urine Negative (Negative); Nitrite Urine Negative (Negative); Protein Urine 1+ (Negative); Specific Gravity Urine 1.022 (1.000-1.030); Urobilinogen Urine Negative (Negative); pH Urine 6.5 (4.5-7.5)
[2023-01-11 02:14] LABS: Allen Test Pos (Pos)
[2023-01-11 02:15] LABS: Base Excess ABG 18.7 mEq/L (-9-1.8); HCO3 ABG 49 mmol/L (19-24); Oxygen Saturation ABG 99.2 % (90-95); PCO2 ABG 82 mmHg (35-46); PO2 ABG 126 mmHg (80-95); pH ABG 7.38 (7.35-7.45)
[2023-01-11 05:52] LABS: Base Excess ABG 20.5 mEq/L (-9-1.8); HCO3 ABG 51 mmol/L (19-24); Oxygen Saturation ABG 98.4 % (90-95); PCO2 ABG 88 mmHg (35-46); PO2 ABG 101 mmHg (80-95); pH ABG 7.37 (7.35-7.45)
[2023-01-11 06:13] LABS: Hematocrit (blood only) 35.2 % (37.0-47.0); Hemoglobin 10.8 g/dl (12.0-16.0); Immature Granulocytes # (auto) 0.02 K/uL (0.01-0.20); Immature Granulocytes % (auto) 0.4 %; Lymphocytes # (auto) 0.31 K/uL (1.2-3.4); Mean Corpuscular Hemoglobin 30.2 pg (25.0-34.0); Mean Corpuscular Hgb Conc 30.7 g/dL (32.0-36.0); Mean Corpuscular Volume 98.3 fL (80.0-100.0); Mean Platelet Volume 8.9 fL (9.4-12.4); Monocytes # (auto) 0.28 K/uL (0.11-0.59); Monocytes % (auto) 5.4 %; Neutrophils # (auto) 4.55 K/uL (1.40-6.50); Neutrophils % (auto) 88.2 %; Platelet Count 156 K/uL (130-400); RDW Coefficient of Variation 10.9 % (11.5-14.5); RDW Standard Deviation 39.2 fL (36.4-46.3); Red Blood Count 3.58 M/uL (4.20-5.40); White Blood Count 5.16 K/ul (4.8-10.8)
[2023-01-11] MEDS: methylPREDNISolone 40 MG in SYRINGE 0 ML IV SCH ×2 (06:18→15:03)
[2023-01-11] MEDS: PANTOprazole 40 MG TAB PO SCH (06:19)
[2023-01-11 06:47] LABS: BUN Creatinine Ratio 30.2 (10-20); Blood Urea Nitrogen 13 mg/dl (6-23); Calcium 9.5 mg/dl (8.6-10.3); Carbon Dioxide > 45 mmol/L (21-32); Chloride 89 mmol/L (98-107); Creatinine Clr Calc Pharmacy 70.1 ml/min; Est GFR (Non-African American) 105.2 ml/min; Glucose 131 mg/dl (70-99(Fasting)); Magnesium 2.1 mg/dl (1.7-2.4); Potassium 4.7 mmol/L (3.5-5.1); Sodium 137 mmol/L (136-145)
[2023-01-11 07:00] LABS: Allen Test POS (Pos)
[2023-01-11] MEDS ORDERED: ALBUT/IPRATROP 3MG/0.5MG NEB 3 ML VIAL NEB SCH (07:00)
[2023-01-11] MEDS: FORMOTEROL 20 MCG/2 ML VIAL INH SCH ×2 (07:15→19:10)
[2023-01-11] MEDS: BUDESONIDE 0.5 MG/2 ML VIAL (PULMICORT) INH SCH ×2 (07:15→19:10)
[2023-01-11] MEDS: ALBUT/IPRATROP 3MG/0.5MG NEB 3 ML VIAL NEB SCH ×5 (08:41→22:24)
[2023-01-11] MEDS ORDERED: AZITHROMYCIN 250 MG TAB PO SCH (09:00)
[2023-01-11] MEDS ORDERED: DOXYCYCLINE HYCLATE 100 MG in DEXTROSE 5% 100 ML IV SCH (09:00)
[2023-01-11] MEDS ORDERED: ENOXAPARIN INJ 40 MG/0.4 ML SYR SQ SCH (09:00)
[2023-01-11] MEDS ORDERED: UMECLIDINIUM BROMIDE 62.5MCG/BLISTER 7 PUFFS/INHALER INH SCH (09:00)
[2023-01-11] MEDS: ASPIRIN 81 MG ECTAB PO SCH (09:57)
[2023-01-11] MEDS: VITAMIN B COMPLEX TAB PO SCH (09:57)
[2023-01-11] MEDS: MULTIVITAMIN TAB PO SCH (09:57)
[2023-01-11] MEDS: guaiFENesin 600 MG TABCR PO SCH ×2 (09:57→20:17)
[2023-01-11] MEDS: lisinopril 5 MG TAB PO SCH (09:57)
[2023-01-11] MEDS: ZINC SULFATE 220 MG CAPSULE PO SCH (09:58)
[2023-01-11] MEDS: HEPARIN SOD 5,000 UNIT/0.5 ML VIAL SQ SCH ×2 (10:00→20:18)
[2023-01-11] MEDS: traMADol HCL 50 MG TABLET PO PRN ×2 (10:09→16:44)
--- NOTE | 2023-01-11 12:04 | Hospitalist Progress Note ---
Date of Service January 11, 2023 Assessment & Plan (1) Acute exacerbation of chronic obstructive pulmonary disease: Plan: 67-year-old female presents with acute respiratory distress, acute on chronic respiratory failure, COPD exasperation. On home oxygen 6 L oxygen. Acute on chronic hypoxic hypercarbic respiratory failure. Chest x-ray personally reviewed; severe emphysema present; no infiltrate. Questionable nodular density present in left lung base. Likely artifact. CT chest from November 2022 reviewed; emphysema present; ABG interpreted; acute on chronic Respiratory failure Respiratory viral panel negative Continue on IV steroids with methylprednisolone every 8 hours DuoNebs [id number]. On antibiotics Budesonide and formoterol nebs Oxygen target of 88 to 92% BiPAP as needed for work of breathing Pulmonology consulted; appreciate recommendations. Type 2 diabetes Not on meds We will follow HbA1c levels. Monitor sugars while on steroids. Hypertension On lisinopril we will monitor the blood pressure Hyperlipidemia. On statin. DVT prophylaxis Lovenox. Disposition Close monitoring telemetry floor. Discussed CODE STATUS with patient at bedside today. Patient does not want intubation in case of further respiratory deterioration; CODE STATUS changed to DNR/DNI. Patient reports she will want morphine make sure she is comfortable if she continues to be respiratory distress. Admission and Anticipated Discharge Date Admission Date: January 10, 2023 Subjective Patient seen and examined at bedside. Patient appears in significant respiratory distress. She was on BiPAP; able to answer question. Not able to complete full sentences. Review of Systems Review of Systems: All systems reviewed & are unremarkable except as noted in Subjective Physical Exam Physical Exam: Constitutional: In significant respiratory distress; unable to complete full sentences. On BiPAP Respiratory: Bilateral diffuse wheeze and decreased urine 2. Cardiovascular: RRR, no murmur, no edema Vessels: no JVD or carotid bruit Chest: normal inspection of chest Abdomen: normal bowel sounds, soft, nontender, no hepatosplenomegaly Musculoskeletal: no cyanosis or clubbing, extremities motor strength 5/5 Skin: no rashes, warm and dry normal turgor Neurologic: Grossly intact. Psychiatric: A+Ox3, euthymic affect Results & Data Results & Data Vital Signs (Past 12 Hours) Vital Signs Temp Pulse Pulse Resp BP BP Pulse Ox 01/11/23 11:10 37.0 C 99 H 16 130/80 99 01/11/23 07:15 103 H 01/11/23 08:23 01/11/23 07:33 101 H 27 H 95 01/11/23 07:21 36.3 C L 103 H 18 145/80 H 98 01/11/23 07:17 106 H 20 97 01/11/23 02:50 36.4 C L 114 H 22 122/69 100 01/11/23 00:40 01/11/23 00:40 36.8 C 108 H 20 149/84 H 99 01/11/23 00:40 120 H 26 H 95 O2 Del Method O2 Flow Rate FiO2 01/11/23 11:10 Nasal Cannula 4 01/11/23 07:15 01/11/23 08:23 BiPAP 01/11/23 07:33 30 01/11/23 07:21 Nasal Cannula 5 01/11/23 07:17 Nasal Cannula 5 01/11/23 02:50 Nasal Cannula 6 01/11/23 00:40 Nasal Cannula 4 01/11/23 00:40 Nasal Cannula 4 01/11/23 00:40 Nasal Cannula 6 Laboratory Results Laboratory Results WBC 5.16 K/ul (4.8-10.8) 01/11/23 05:39 RBC 3.58 M/uL (4.20-5.40) L 01/11/23 05:39 Hgb 10.8 g/dl (12.0-16.0) L 01/11/23 05:39 Hct 35.2 % (37.0-47.0) L 01/11/23 05:39 MCV 98.3 fL (80.0-100.0) 01/11/23 05:39 MCH 30.2 pg (25.0-34.0) 01/11/23 05:39 MCHC 30.7 g/dL (32.0-36.0) L 01/11/23 05:39 RDW Std Deviation 39.2 fL (36.4-46.3) 01/11/23 05:39 RDW Coeff of Patricia 10.9 % (11.5-14.5) L 01/11/23 05:39 Plt Count 156 K/uL (130-400) 01/11/23 05:39 MPV 8.9 fL (9.4-12.4) L 01/11/23 05:39 Immature Gran % (Auto) 0.4 % 01/11/23 05:39 Neut % (Auto) 88.2 % 01/11/23 05:39 Lymph % (Auto) 6.0 % 01/11/23 05:39 [place] % (Auto) 5.4 % 01/11/23 05:39 Eos % (Auto) 0.0 % 01/11/23 05:39 Baso % (Auto) 0.0 % 01/11/23 05:39 Neut # (Auto) 4.55 K/uL (1.40-6.50) 01/11/23 05:39 Lymph # (Auto) 0.31 K/uL (1.2-3.4) L 01/11/23 05:39 [place] # (Auto) 0.28 K/uL (0.11-0.59) 01/11/23 05:39 Eos # (Auto) 0.00 K/uL (0-0.50) 01/11/23 05:39 Baso # (Auto) 0.00 K/uL (0-0.2) 01/11/23 05:39 Immature Gran # (Auto) 0.02 K/uL (0.01-0.20) 01/11/23 05:39 ABG pH 7.37 (7.35-7.45) 01/11/23 05:39 ABG pCO2 88 mmHg (35-46) H 01/11/23 05:39 ABG pO2 101 mmHg (80-95) H 01/11/23 05:39 ABG HCO3 51 mmol/L (19-24) H 01/11/23 05:39 ABG O2 Saturation 98.4 % (90-95) H 01/11/23 05:39 ABG Base Excess 20.5 mEq/L (-9-1.8) H 01/11/23 05:39 Mark Test POS (Pos) 01/11/23 05:39 VBG pH 7.32 (7.36-7.41) L 01/10/23 21:04 VBG pCO2 93 mmHg (38-50) H 01/10/23 21:04 VBG pO2 37 mmHg 01/10/23 21:04 VBG HCO3 48 mmol/L 01/10/23 21:04 VBG O2 Saturation 68.0 % 01/10/23 21:04 VBG Base Excess 16.9 mEq/L 01/10/23 21:04 Oxygen Given 6L O2 01/11/23 05:39 Sodium 137 mmol/L (136-145) 01/11/23 05:39 Potassium 4.7 mmol/L (3.5-5.1) 01/11/23 05:39 Chloride 89 mmol/L (98-107) L 01/11/23 05:39 Carbon Dioxide > 45 mmol/L (21-32) H* 01/11/23 05:39 Anion Gap TNP 01/11/23 05:39 BUN 13 mg/dl (6-23) 01/11/23 05:39 Creatinine 0.43 mg/dl (0.6-1.2) L 01/11/23 05:39 Est Cr Clr Drug Dosing 70.1 ml/min 01/11/23 05:39 Est GFR ( Amer) 122.0 ml/min 01/11/23 05:39 Est GFR (Non-Af Amer) 105.2 ml/min 01/11/23 05:39 BUN/Creatinine Ratio 30.2 (10-20) H 01/11/23 05:39 Glucose 131 mg/dl (70-99(Fasting)) H 01/11/23 05:39 Calcium 9.5 mg/dl (8.6-10.3) 01/11/23 05:39 Magnesium 2.1 mg/dl (1.7-2.4) 01/11/23 05:39 Total Bilirubin 0.3 mg/dl (0.2-1.0) 01/10/23 19:10 AST 24 U/L (13-39) 01/10/23 19:10 ALT 18 U/L (7-52) 01/10/23 19:10 Alkaline Phosphatase 80 U/L (34-104) 01/10/23 19:10 Troponin I High Sens 6.2 pg/ml (0-14) 01/10/23 19:10 B-Natriuretic Peptide 23 pg/ml (0-100) 01/10/23 19:10 Total Protein 6.8 gm/dl (6.0-8.3) 01/10/23 19:10 Albumin 4.3 gm/dl (3.4-5.0) 01/10/23 19:10 Globulin 2.5 gm/dl (2.5-4.0) 01/10/23 19:10 Albumin/Globulin Ratio 1.7 (0.9-2) 01/10/23 19:10 Urine Color Yellow 01/11/23 01:40 Urine Appearance Clear (Clear) 01/11/23 01:40 Urine pH 6.5 (4.5-7.5) 01/11/23 01:40 Ur Specific [place] 1.022 (1.000-1.030) 01/11/23 01:40 Urine Protein 1+ (Negative) H 01/11/23 01:40 Urine Glucose (UA) Negative (Negative) 01/11/23 01:40 Urine Ketones 3+ (Negative) H 01/11/23 01:40 Urine Blood Negative (Negative) 01/11/23 01:40 Urine Nitrite Negative (Negative) 01/11/23 01:40 Urine Bilirubin Negative (Negative) 01/11/23 01:40 Urine Urobilinogen Negative (Negative) 01/11/23 01:40 Ur Leukocyte Esterase Negative (Negative) 01/11/23 01:40 Urine WBC (Auto) 1-5 /hpf (0-5) 01/11/23 01:40 Urine RBC (Auto) 10-30 /hpf (0-4) H 01/11/23 01:40 U Hyaline Cast (Auto) 0 /lpf (0-5) 01/11/23 01:40 U Epithel Cells (Auto) 20-30 /lpf (0-5) H 01/11/23 01:40 Urine Bacteria (Auto) Negative (Negative) 01/11/23 01:40 Adenovirus (PCR) Not Detected (NotDetected) 01/10/23 19:15 B. pertussis DNA (PCR) Not Detected (NotDetected) 01/10/23 19:15 B.parapertussis DNA PCR Not Detected (NotDetected) 01/10/23 19:15 C. pneumoniae DNA (PCR) Not Detected (NotDetected) 01/10/23 19:15 Coronavirus OC43 (PCR) Not Detected (NotDetected) 01/10/23 19:15 Coronavirus HKU1 (PCR) Not Detected (NotDetected) 01/10/23 19:15 Coronavirus 229E (PCR) Not Detected (NotDetected) 01/10/23 19:15 SARS-CoV-2 (PCR) Not Detected (NotDetected) 01/10/23 19:15 Coronavirus NL63 (PCR) Not Detected (NotDetected) 01/10/23 19:15 Human Metapneumovir PCR Not Detected (NotDetected) 01/10/23 19:15 Influenza Type A (PCR) Not Detected (NotDetected) 01/10/23 19:15 Influenza Type B (PCR) Not Detected (NotDetected) 01/10/23 19:15 M. pneumoniae (PCR) Not Detected (NotDetected) 01/10/23 19:15 Parainfluenza 1 (PCR) Not Detected (NotDetected) 01/10/23 19:15 Parainfluenza 2 (PCR) Not Detected (NotDetected) 01/10/23 19:15 Parainfluenza 3 (PCR) Not Detected (NotDetected) 01/10/23 19:15 Parainfluenza 4 (PCR) Not Detected (NotDetected) 01/10/23 19:15 RSV (PCR) Not Detected (NotDetected) 01/10/23 19:15 Entero/Rhino (PCR) Not Detected (NotDetected) 01/10/23 19:15 Impressions Chest X-Ray 01/10/23 19:09 XR chest 1V portable HISTORY: 67 years-old Female Dyspnea acute shortness of breath COMPARISON: 11/27/2022 TECHNIQUE: AP view the chest FINDINGS: Severe emphysema with chronic interstitial coarsening. 2.3 cm nodular density projects over the left lung base. No pneumothorax, pleural effusion or overt pulmonary edema. Surgical clips of the abdominal right upper quadrant. IMPRESSION: 1. Severe emphysema without acute intrathoracic abnormality. 2. 2.3 cm nodular density projects over the lateral left lung base, likely secondary to overlying summation density with ribs and nipple shadow. Follow-up radiographs with nipple markers recommended. ACT 112: Negative or not required by law. The above report was generated using voice recognition software. It may contain grammatical, syntax or spelling errors. Electronically signed by: Wilmer Landrum M.D. 01/10/2023 7:51 PM
--- NOTE | 2023-01-11 14:36 | Pulmonary Consultation ---
Date of Consultation January 11, 2023 Assessment & Plan (1) Acute exacerbation of chronic obstructive pulmonary disease: (2) Chronic hypoxemic respiratory failure: (3) Chronic hypercapnic respiratory failure: Plan Impression: 67-year-old female with end-stage obstructive lung disease and hypoxemic and hypercarbic respiratory failure admitted with exacerbation. She unfortunately continues her tobacco habit. She is now losing weight unintentionally which portends a poor prognosis for her. She has elected to not pursue aggressive interventions and is interested in a discussion of symptom management therapy i.e. palliative care/hospice. Recommendations: 1. Acute exacerbation of COPD: Discontinue Solu-Medrol and replace with prednisone 40 mg a day. Continue nebulized budesonide Perforomist. Discontinue Rocephin. Doxycycline can be transitioned to oral. Continue DuoNebs on an as- needed basis. Restart azithromycin 250 mg 3 times a week when doxycycline course is completed. Consideration for outpatient Yuperli might be appropriate 2. Hypercarbic respiratory failure: Recommend the patient try and have her home AVAPS machine brought in if at all possible. If not, we will try and use our machine nightly. 3. Palliative care consultation will be entered. We will continue to follow with you. The patient's overall prognosis is severely guarded and agree with plans for DNR/DNI. History of Present Illness Attending Physician: Isaac Mcduffie MD History of Present Illness Asked by hospitalist to assist in evaluation management of this patient with end-stage lung disease admitted with exacerbation. Patient seen a variety of pulmonary providers in the past including myself, Dr. Galvez, and most recently Dr. Thomas. She was last seen back in July. She unfortunately continues her tobacco habit and is smoking a few cigarettes. She has an AVAPS at home which she uses at night. Patient presented to the emergency room yesterday with respiratory distress. She was found to have acute hypercarbic respiratory failure with a pH of 7.2 and a PCO2 of 120. She was placed on noninvasive positive pressure ventilation and received benzodiazepines. She has been weaned off of the BiPAP and is currently awake alert on her baseline oxygen requirement. She states she has been getting worse and losing weight. She lives alone. She is interested in palliative care. The patient describes an intermittent cough. No significant sputum production. No fevers chills or night sweats. Allergies Allergy/AdvReac Type Severity Reaction Status Date / Time prednisone AdvReac Intermediate Confusion/PSYCH Verified 01/10/23 20:39 COMPLICATIONS PER [facility] MED LIST Home Medications Medication Instructions Recorded Confirmed Type aspirin 81 mg tablet,delayed 81 mg PO QAM 05/25/19 01/10/23 History release (Adult Low Dose Aspirin) atorvastatin 10 mg tablet 10 mg PO HS 05/25/19 01/10/23 History lisinopril 5 mg tablet 5 mg PO QAM 05/25/19 01/10/23 History loratadine 10 mg capsule 10 mg PO DAILY PRN allergies 05/25/19 01/10/23 History trazodone 50 mg tablet 75 mg PO HS 05/25/19 01/10/23 History albuterol sulfate 90 mcg/actuation 2 puffs inhalation Q4H PRN 05/26/19 01/10/23 History aerosol inhaler (Ventolin HFA) Shortness Of Breath meloxicam 15 mg tablet 15 mg PO QAM 05/26/19 01/10/23 History albuterol sulfate 2.5 mg/3 mL 2.5 mg (3 mL) inhalation Q4H PRN 02/18/21 01/10/23 Rx (0.083 %) solution for nebulization shortness of breath or wheezing #540 mL esomeprazole magnesium 20 mg 20 mg PO DAILYBB 11/13/21 01/10/23 History capsule,delayed release multivitamin 1 tab PO DAILY 11/13/21 01/10/23 History tramadol 50 mg tablet 50 mg PO Q6H PRN Pain, Moderate 11/13/21 01/10/23 History vitamin B complex 1 cap PO DAILY 11/13/21 01/10/23 History Portable Oxygen #1 ea 07/17/22 Rx tiotropium bromide 2.5 2 inh inhalation QAM #4 grams 12/07/22 01/10/23 Rx mcg/actuation mist for inhalation (Spiriva Respimat) arformoterol 15 mcg/2 mL solution 2 ml inhalation BID #120 mL 01/07/23 01/10/23 Rx for nebulization budesonide 0.5 mg/2 mL suspension 0.5 mg inhalation BID 01/10/23 01/10/23 History for nebulization guaifenesin 600 mg tablet, 600 mg PO BID 07/09/23 07/09/23 History extended release 12 hr (Mucinex) zinc sulfate 50 mg zinc (220 mg) 50 mg PO DAILY 01/10/23 01/10/23 History tablet Patient History Medical History (Updated 01/10/23 @ 21:22 by Jil Osborn MD) Acute and chronic respiratory failure with hypercapnia Acute respiratory acidosis Chronic hypercapnic respiratory failure Chronic hypoxemic respiratory failure COPD exacerbation COPD, very severe History of gastroesophageal reflux (GERD) History of hyperlipidemia HTN (hypertension) Hypoxemia Pulmonary emphysema Therapeutic drug monitoring Tobacco abuse counseling Surgical History History of appendectomy History of tonsillectomy History of tubal ligation Family History Father Coronary heart disease Mother Pancreatic cancer Brother Brain tumor Sister Myocardial infarction Social History (Updated 11/13/21 @ 13:28 by Edna Howard PA-C) Smoking Status: Current every day smoker Cigarettes Per Day: lifelong smoker- now down to 2 per day; Second Hand Exposure: No; Do You Dip or Chew Tobacco: No; Hx Alcohol Use: No Hx Substance Use: No Preferred Language: Albanian Communication Ability: Effective Bottle And Glass Inspector Required: No Beliefs That Will Affect Care: None Current Living Situation: Alone Current Living Situation Comment: son lives upstairs Other Information That Helps Us Care for You: No Feels Safe at Home: Yes Safety Concerns: Feels Safe At This Time Assistive Devices: Prosthesis and Other Review of Systems Review of Systems: All systems reviewed & are unremarkable except as noted in Subjective Physical Exam Constitutional: + cachectic, + physical limitations and + frail appearing Eyes: PERRL, conjunctivae normal, anicteric sclerae ENMT: external ear and nose normal, oropharynx normal Neck: trachea midline, no thyromegaly Respiratory: normal respiratory effort, + abnormal respiratory pattern and + audible wheezes; does not use accessory muscles Auscultation: + diminished lung sounds and + abnormal I/E ratio Cardiovascular: Heart Sounds: normal S1 and normal S2; no murmur Extremities: no edema Musculoskeletal: no cyanosis or clubbing, extremities motor strength 5/5 Skin: no rashes, warm and dry Neurologic: PERRL, EOMI, accommodation nl, no face palsy, no dysarthria Psychiatric: Orientation: alert and oriented x 3 Mood: + depressed mood Results & Data Results & Data Vital Signs (Past 12 Hours) Vital Signs Temp Pulse Pulse Resp BP BP Pulse Ox 01/11/23 11:10 37.0 C 99 H 16 130/80 99 01/11/23 07:15 103 H 01/11/23 08:23 01/11/23 07:33 101 H 27 H 95 01/11/23 07:21 36.3 C L 103 H 18 145/80 H 98 01/11/23 07:17 106 H 20 97 01/11/23 02:50 36.4 C L 114 H 22 122/69 100 O2 Del Method O2 Flow Rate FiO2 01/11/23 11:10 Nasal Cannula 4 01/11/23 07:15 01/11/23 08:23 BiPAP 01/11/23 07:33 30 01/11/23 07:21 Nasal Cannula 5 01/11/23 07:17 Nasal Cannula 5 01/11/23 02:50 Nasal Cannula 6 Critical Care Results & Data Vital Signs (Past 12 Hours) Vital Signs Temp Pulse Pulse Resp BP BP Pulse Ox 01/11/23 11:10 37.0 C 99 H 16 130/80 99 01/11/23 07:15 103 H 01/11/23 08:23 01/11/23 07:33 101 H 27 H 95 01/11/23 07:21 36.3 C L 103 H 18 145/80 H 98 01/11/23 07:17 106 H 20 97 01/11/23 02:50 36.4 C L 114 H 22 122/69 100 O2 Del Method O2 Flow Rate FiO2 01/11/23 11:10 Nasal Cannula 4 01/11/23 07:15 01/11/23 08:23 BiPAP 01/11/23 07:33 30 01/11/23 07:21 Nasal Cannula 5 01/11/23 07:17 Nasal Cannula 5 01/11/23 02:50 Nasal Cannula 6 Lab & Micro Results (Past 24 Hours) RBC 3.58 M/uL (4.20-5.40) L 01/11/23 WBC 5.16 K/ul (4.8-10.8) 01/11/23 Hgb 10.8 g/dl (12.0-16.0) L 01/11/23 Hct 35.2 % (37.0-47.0) L 01/11/23 MCV 98.3 fL (80.0-100.0) 01/11/23 MCH 30.2 pg (25.0-34.0) 01/11/23 MCHC 30.7 g/dL (32.0-36.0) L 01/11/23 RDW Standard Deviation 39.2 fL (36.4-46.3) 01/11/23 RDW Coefficient of Variation 10.9 % (11.5-14.5) L 01/11/23 Plt Count 156 K/uL (130-400) 01/11/23 MPV 8.9 fL (9.4-12.4) L 01/11/23 Neutrophils (%) (Auto) 88.2 % 01/11/23 Lymphocytes (%) (Auto) 6.0 % 01/11/23 Monocytes # (Auto) 0.28 K/uL (0.11-0.59) 01/11/23 Eosinophils # (Auto) 0.00 K/uL (0-0.50) 01/11/23 Immature Granulocyte % (Auto) 0.4 % 01/11/23 Neutrophils # (Auto) 4.55 K/uL (1.40-6.50) 01/11/23 Lymphocytes # (Auto) 0.31 K/uL (1.2-3.4) L 01/11/23 Monocytes # (Auto) 0.28 K/uL (0.11-0.59) 01/11/23 Eosinophils # (Auto) 0.00 K/uL (0-0.50) 01/11/23 Basophils # (Auto) 0.00 K/uL (0-0.2) 01/11/23 Immature Granulocyte # (Auto) 0.02 K/uL (0.01-0.20) 3 Na 137 mmol/L (136-145) 01/11/23 K 4.7 mmol/L (3.5-5.1) 01/11/23 Cl 89 mmol/L (98-107) L 01/11/23 CO2 > 45 mmol/L (21-32) H* 01/11/23 Anion Gap TNP 01/11/23 BUN 13 mg/dl (6-23) 01/11/23 Creatinine 0.43 mg/dl (0.6-1.2) L 01/11/23 Estimated GFR ( Amer) 122.0 ml/min 01/11/23 Estimated GFR (Non-Af Amer) 105.2 ml/min 01/11/23 BUN/Creatinine Ratio 30.2 (10-20) H 01/11/23 Glu 131 mg/dl (70-99(Fasting)) H 01/11/23 Ca 9.5 mg/dl (8.6-10.3) 01/11/23 Total Bilirubin 0.3 mg/dl (0.2-1.0) 01/10/23 AST 24 U/L (13-39) 01/10/23 ALT 18 U/L (7-52) 01/10/23 Alkaline Phosphatase 80 U/L (34-104) 01/10/23 TP 6.8 gm/dl (6.0-8.3) 01/10/23 Albumin 4.3 gm/dl (3.4-5.0) 01/10/23 Globulin 2.5 gm/dl (2.5-4.0) 01/10/23 Albumin/Globulin Ratio 1.7 (0.9-2) 01/10/23 Mg 2.1 mg/dl (1.7-2.4) 01/11/23 05:39 Calcium Level 9.5 mg/dl (8.6-10.3) 01/11/23 05:39 Venous Blood pH 7.32 (7.36-7.41) L 01/10/23 21:04 Venous Blood Partial Pressure CO2 93 mmHg (38-50) H 01/10/23 21 :04 Venous Blood Partial Pressure O2 37 mmHg 01/10/23 21:04 Venous Blood HCO3 48 mmol/L 01/10/23 21:04 Venous Blood Base Excess 16.9 mEq/L 01/10/23 21:04 Venous Blood Oxygen Saturation 68.0 % 01/10/23 21:04 Arterial Blood pH 7.37 (7.35-7.45) 01/11/23 05:39 Arterial Blood Partial Pressure CO2 88 mmHg (35-46) H 01/11/23 05:39 Arterial Blood Partial Pressure O2 101 mmHg (80-95) H 01/11/23 05:39 Arterial Blood HCO3 51 mmol/L (19-24) H 01/11/23 05:39 Arterial Blood Base Excess 20.5 mEq/L (-9-1.8) H 01/11/23 05:39 Arterial Blood Oxygen Saturation 98.4 % (90-95) H 01/11/23 05:3 9 Blood Gas Oxygen Given 6L O2 01/11/23 05:39 Mark Test POS (Pos) 01/11/23 05:39 Diagnostic Findings (Past 24 Hours) Chest X-Ray 01/10/23 19:09 XR chest 1V portable HISTORY: 67 years-old Female Dyspnea acute shortness of breath COMPARISON: 11/27/2022 TECHNIQUE: AP view the chest FINDINGS: Severe emphysema with chronic interstitial coarsening. 2.3 cm nodular density projects over the left lung base. No pneumothorax, pleural effusion or overt pulmonary edema. Surgical clips of the abdominal right upper quadrant. IMPRESSION: 1. Severe emphysema without acute intrathoracic abnormality. 2. 2.3 cm nodular density projects over the lateral left lung base, likely secondary to overlying summation density with ribs and nipple shadow. Follow-up radiographs with nipple markers recommended. ACT 112: Negative or not required by law. The above report was generated using voice recognition software. It may contain grammatical, syntax or spelling errors. Electronically signed by: Wilmer Landrum M.D. 01/10/2023 7:51 PM I & O Totals 24 Hours 01/10/23 01/11/23 01/12/23 06:59 06:59 06:59 Intake Total 380 / 380 230 / 230 Output Total 700 / 700 Balance -320 / -320 230 / 230 Cumulative 01/10/23 18:51 thru 01/11/23 14:24 Intake Total 610 Output Total 700 Balance -90 RT Ventilator Mngmt (Last Documented) Ventilator Ordered Settings Respiratory Rate 16 01/11/23 11:10 Fraction of Inspired Oxygen 30 01/11/23 07:33 Ventilator - PT Measurements Respiratory Rate 16 PG Care Time/CCT Total # of Minutes Spent Total Time Spent with Patient: Total time spent is greater than 50% in coordination of care (as documented) at patient's floor/unit and/or counseling patient: Coding Level of Care Code 21573 INT INP/OBS CARE 3/75MIN Diagnoses Acute exacerbation of chronic obstructive pulmonary disease J44.1 Chronic hypoxemic respiratory failure J96.11 Chronic hypercapnic respiratory failure J96.12
--- NOTE | 2023-01-11 18:09 | Electrocardiogram Report ---
Test Reason : Blood Pressure : / mmHG Vent. Rate : 100 BPM Atrial Rate : 100 BPM P-R Int : 152 ms QRS Dur : 074 ms QT Int : 314 ms P-R-T Axes : 088 066 068 degrees QTc Int : 405 ms Normal sinus rhythm Normal ECG When compared with ECG of 13-NOV-2021 11:03, No significant change was found Confirmed by Shaun Brown ([id number] on 01/11/2023 6:09:38 PM Referred By: REFERRED SELF Confirmed By:Foster Brown
--- NOTE | 2023-01-11 18:14 | Electrocardiogram Report ---
Test Reason : Blood Pressure : / mmHG Vent. Rate : 134 BPM Atrial Rate : 134 BPM P-R Int : 140 ms QRS Dur : 072 ms QT Int : 280 ms P-R-T Axes : 089 077 083 degrees QTc Int : 418 ms Poor data quality, interpretation may be adversely affected Sinus tachycardia Otherwise normal ECG When compared with ECG of 10-JAN-2023 19:05, (unconfirmed) No significant change was found Confirmed by Shaun Brown ([id number] on 01/11/2023 6:14:11 PM Referred By: REFERRED SELF Confirmed By:Foster Brown
[2023-01-11] MEDS ORDERED: cefTRIAXone SODIUM 1,000 MG in DEXTROSE 5% AD-VAN 50 ML IV SCH (20:00)
[2023-01-11] MEDS: predniSONE 10 MG TABLET PO SCH (20:17)
[2023-01-11] MEDS: traZODone HCL 50 MG TAB PO SCH (20:17)
[2023-01-11] MEDS: DOXYCYCLINE HYCLATE 100 MG CAP PO SCH (20:17)
[2023-01-11] MEDS: ATORVASTATIN 10 MG TAB PO SCH (20:18)
[2023-01-11] MEDS ORDERED: LORazepam 2 MG/1 ML VIAL IV STA (22:46)
[2023-01-12] MEDS: ALBUT/IPRATROP 3MG/0.5MG NEB 3 ML VIAL NEB SCH ×5 (02:32→23:18)
[2023-01-12] MEDS: PANTOprazole 40 MG TAB PO SCH (06:45)
[2023-01-12] MEDS: FORMOTEROL 20 MCG/2 ML VIAL INH SCH ×2 (07:00→19:02)
[2023-01-12] MEDS: BUDESONIDE 0.5 MG/2 ML VIAL (PULMICORT) INH SCH ×2 (07:00→19:02)
[2023-01-12 07:44] LABS: Alanine Aminotransferase 18 U/L (7-52); Albumin Globulin Ratio 1.7 (0.9-2); Alkaline Phosphatase 72 U/L (34-104); Aspartate Aminotransferase 25 U/L (13-39); BUN Creatinine Ratio 38.2 (10-20); Bilirubin,Total 0.2 mg/dl (0.2-1.0); Blood Urea Nitrogen 21 mg/dl (6-23); Calcium 9.9 mg/dl (8.6-10.3); Carbon Dioxide > 45 mmol/L (21-32); Chloride 89 mmol/L (98-107); Creatinine Clr Calc Pharmacy 57.8 ml/min; Est GFR (African American) 112.5 ml/min; Est GFR (Non-African American) 97.1 ml/min; Globulin 2.3 gm/dl (2.5-4.0); Glucose 108 mg/dl (70-99(Fasting)); Potassium 4.7 mmol/L (3.5-5.1); Sodium 137 mmol/L (136-145); Total Protein 6.3 gm/dl (6.0-8.3)
--- NOTE | 2023-01-12 08:06 | Pulmonology Progress Note ---
Date of Service January 12, 2023 Assessment & Plan (1) Acute exacerbation of chronic obstructive pulmonary disease: (2) Chronic hypoxemic respiratory failure: (3) Chronic hypercapnic respiratory failure: Plan Impression: 67-year-old female with end-stage obstructive lung disease and hypoxemic and hypercarbic respiratory failure admitted with exacerbation. She unfortunately continues her tobacco habit. She is now losing weight unintentionally which portends a poor prognosis for her. She has elected to not pursue aggressive interventions and is interested in a discussion of symptom management therapy i.e. palliative care/hospice. She is intermittently tachycardic and this raises the possibility of potential multifocal atrial tachycardia which could be treated with calcium channel ebenezer. Recommendations: 1. Acute exacerbation of COPD: Continue prednisone 40 mg a day. Continue nebulized budesonide Perforomist. Complete 5-day course of oral doxycycline. Continue DuoNebs on an as-needed basis. Restart azithromycin 250 mg 3 times a week when doxycycline course is completed. Consideration for outpatient Yuperli might be appropriate. Increase Mucinex to 1200 mg daily. Out of bed to chair as tolerated. 2. Hypercarbic respiratory failure: Recommend the patient try and have her home AVAPS machine brought in if at all possible. If not, we will try and use our machine nightly. She was advised that she could have her home mask brought in if she feels more comfortable with that 3. Tachycardia: This may be contributing to the patient's issues. EKG demo nstrated sinus tach yesterday. We will repeat EKG this morning. If this is a multifocal atrial tachycardia, calcium channel ebenezer such as Cardizem may be considered. We will continue to follow with you. The patient's overall prognosis is severely guarded and agree with plans for DNR/DNI. Hospice would be appropriate Admission and Anticipated Discharge Date Admission Date: January 10, 2023 Subjective Patient seen and examined. EMR reviewed. The patient has had episodic palpitations. She feels that her cough is now slightly more productive and she is less congested in her chest. She was able to use noninvasive positive pressure ventilation for about 8 hours last night and slept reasonably well. She is requesting her tramadol 4 times a day for her pain issues Review of Systems Review of Systems: All systems reviewed & are unremarkable except as noted in Subjective Physical Exam Constitutional: + cachectic, + physical limitations and + frail appearing Eyes: PERRL, conjunctivae normal, anicteric sclerae ENMT: external ear and nose normal, oropharynx normal Neck: trachea midline, no thyromegaly Respiratory: normal respiratory effort, + abnormal respiratory pattern and + audible wheezes; does not use accessory muscles Auscultation: + diminished lung sounds and + abnormal I/E ratio Cardiovascular: Heart Sounds: normal S1 and normal S2; no murmur Extremities: no edema Musculoskeletal: no cyanosis or clubbing, extremities motor strength 5/5 Skin: no rashes, warm and dry Neurologic: PERRL, EOMI, accommodation nl, no face palsy, no dysarthria Psychiatric: Orientation: alert and oriented x 3 Mood: + depressed mood Results & Data Results & Data Vital Signs (Past 12 Hours) Vital Signs Temp Pulse Pulse Resp BP BP Pulse Ox 01/12/23 07:36 36.6 C 102 H 20 132/83 99 01/12/23 07:00 122 H 26 H 94 01/12/23 06:00 36.7 C 86 24 114/72 97 01/12/23 03:30 86 20 100 01/12/23 02:35 105 H 14 98 01/12/23 02:32 105 H 14 98 01/11/23 22:00 112 H 01/11/23 23:35 147 H 22 98 01/11/23 22:55 36.8 C 118 H 18 124/54 L 99 01/11/23 22:37 155 H 31 H 01/11/23 22:27 155 H 31 H 91 O2 Del Method O2 Flow Rate FiO2 01/12/23 07:36 Nasal Cannula 6 01/12/23 07:00 Nasal Cannula 6 01/12/23 06:00 BiPAP 30 01/12/23 03:30 BiPAP 01/12/23 02:35 30 01/12/23 02:32 BiPAP 30 01/11/23 22:00 01/11/23 23:35 30 01/11/23 22:55 Nasal Cannula 6 01/11/23 22:37 01/11/23 22:27 Nasal Cannula 5 Laboratory Results 01/11/23 05:39 01/12/23 06:03 Diagnostic Findings EKG yesterday showed sinus tachycardia. PG Care Time/CCT Total # of Minutes Spent Total Time Spent with Patient: Total time spent is greater than 50% in coordination of care (as documented) at patient's floor/unit and/or counseling patient: Coding Level of Care Code 95083 SUB INP/OBS CARE 235MIN Diagnoses Acute exacerbation of chronic obstructive pulmonary disease J44.1 Chronic hypoxemic respiratory failure J96.11 Chronic hypercapnic respiratory failure J96.12
--- NOTE | 2023-01-12 09:03 | Palliative Care Consultation ---
Date of Consultation January 12, 2023 Assessment & Plan (1) Shortness of breath: Improved since admission She feels it is manageable at home at her baseline but has seen decline (2) Palliative care encounter: I explained my role as the palliative care physician and Mrs. Goodwin immediately told me that she knows that her "lungs are shot" and that she doesn't have very long to live. She tells me that she would not be surprised if she within the next six months. She tells me that she is not afraid to . She is afraid of being uncomfortable and in pain. She becomes tearful when talking about this. Her preference would be to stay at home, not return to the hospital and at home. She does recognize that she would likely reach a point where she would need more care than she could get at home. She would be willing to go to [facility], near her home if needed. She tells me that she would not want a lot of people around when she is dying and would like to have a shot that she could take when she is ready to . I explained that we would not give her medication that would hasten her dying time but could help relieve her dyspnea, pain and anxiety until the time that she dies. We talked about the hospice benefit and services provided. She would be interested in this and would like to speak with case management about options. Discussed with pillowcase maker. We also discussed who she would want to make decisions for her if she were unable to do so. She told me that her daughter in law has POA and she trusts her to make the right decisions on her behalf. She is confident that her daughter in law would support her decision to pursue hospice. History of Present Illness Reason for Consultation: goals of care Requesting Physician: Dr. Jasso Attending Physician: Isaac Mcduffie MD History of Present Illness 67 yo lady with history of severe COPD, diabetes with neuropathy, hypertension and reflux esophagitis who presented with hypercapnic respiratory failure. Her serum CO2 was 120 on admission with pH of 7.2. She was placed on bipap. She does use trilogy at home and denies problems with using it. She lives alone and generally is able to manage her basic ADLs with help for laundry and housework. She does have family in the area. Allergies Allergy/AdvReac Type Severity Reaction Status Date / Time prednisone AdvReac Intermediate Confusion/PSYCH Verified 01/10/23 20:39 COMPLICATIONS PER [facility] Home Medications Medication Instructions Recorded Confirmed Type aspirin 81 mg tablet,delayed 81 mg PO QAM 05/25/19 01/10/23 History release (Adult Low Dose Aspirin) atorvastatin 10 mg tablet 10 mg PO HS 05/25/19 01/10/23 History lisinopril 5 mg tablet 5 mg PO QAM 05/25/19 01/10/23 History loratadine 10 mg capsule 10 mg PO DAILY PRN allergies 05/25/19 01/10/23 History trazodone 50 mg tablet 75 mg PO HS 05/25/19 01/10/23 History albuterol sulfate 90 mcg/actuation 2 puffs inhalation Q4H PRN 05/26/19 01/10/23 History aerosol inhaler (Ventolin HFA) Shortness Of Breath meloxicam 15 mg tablet 15 mg PO QAM 05/26/19 01/10/23 History albuterol sulfate 2.5 mg/3 mL 2.5 mg (3 mL) inhalation Q4H PRN 02/18/21 01/10/23 Rx (0.083 %) solution for nebulization shortness of breath or wheezing #540 mL esomeprazole magnesium 20 mg 20 mg PO DAILYBB 11/13/21 01/10/23 History capsule,delayed release multivitamin 1 tab PO DAILY 11/13/21 01/10/23 History tramadol 50 mg tablet 50 mg PO Q6H PRN Pain, Moderate 11/13/21 01/10/23 History vitamin B complex 1 cap PO DAILY 11/13/21 01/10/23 History Portable Oxygen #1 ea 07/17/22 Rx tiotropium bromide 2.5 2 inh inhalation QAM #4 grams 12/07/22 01/10/23 Rx mcg/actuation mist for inhalation (Spiriva Respimat) arformoterol 15 mcg/2 mL solution 2 ml inhalation BID #120 mL 01/07/23 01/10/23 Rx for nebulization budesonide 0.5 mg/2 mL suspension 0.5 mg inhalation BID 01/10/23 01/10/23 History for nebulization guaifenesin 600 mg tablet, 600 mg PO BID 01/10/23 01/10/23 History extended release 12 hr (Mucinex) zinc sulfate 50 mg zinc (220 mg) 50 mg PO DAILY 01/10/23 01/10/23 History tablet Patient History Medical History Acute and chronic respiratory failure with hypercapnia Acute respiratory acidosis Chronic hypercapnic respiratory failure Chronic hypoxemic respiratory failure COPD exacerbation COPD, very severe History of gastroesophageal reflux (GERD) History of hyperlipidemia HTN (hypertension) Hypoxemia Pulmonary emphysema Therapeutic drug monitoring Tobacco abuse counseling Surgical History History of appendectomy History of tonsillectomy History of tubal ligation Family History Father Coronary heart disease Mother Pancreatic cancer Brother Brain tumor Sister Myocardial infarction Social History Smoking Status: Current every day smoker Cigarettes Per Day: lifelong smoker- now down to 2 per day; Second Hand Exposure: No; Do You Dip or Chew Tobacco: No; Hx Alcohol Use: No Hx Substance Use: No Preferred Language: Belarusian Communication Ability: Effective Scrap Preparation Supervisor Required: No Beliefs That Will Affect Care: None Current Living Situation: Alone Current Living Situation Comment: son lives upstairs Other Information That Helps Us Care for You: No Feels Safe at Home: Yes Safety Concerns: Feels Safe At This Time Assistive Devices: Prosthesis and Other Review of Systems Review of Systems: ESAS Pain 1/3 Dyspnea 2/3 Nausea 0/3 Drowsiness 0/3 Physical Exam Constitutional: + thin and + frail appearing Respiratory: + uses accessory muscles Cardiovascular: Rate/Rhythm: regular rhythm and + tachycardic Musculoskeletal: Extremities: + muscle atrophy Neurologic: Speech / Cognition: normal cognition Results & Data Vital Signs (Past 12 Hours) Vital Signs Temp Pulse Pulse Resp BP BP Pulse Ox 01/12/23 07:36 97.9 F 102 H 20 132/83 99 01/12/23 07:00 122 H 26 H 94 01/12/23 06:00 98.1 F 86 24 114/72 97 01/12/23 03:30 86 20 100 01/12/23 02:35 105 H 14 98 01/12/23 02:32 105 H 14 98 01/11/23 22:00 112 H 01/11/23 23:35 147 H 22 98 01/11/23 22:55 98.2 F 118 H 18 124/54 L 99 01/11/23 22:37 155 H 31 H 01/11/23 22:27 155 H 31 H 91 O2 Del Method O2 Flow Rate FiO2 01/12/23 07:36 Nasal Cannula 6 01/12/23 07:00 Nasal Cannula 6 01/12/23 06:00 BiPAP 30 01/12/23 03:30 BiPAP 01/12/23 02:35 30 01/12/23 02:32 BiPAP 30 01/11/23 22:00 01/11/23 23:35 30 01/11/23 22:55 Nasal Cannula 6 01/11/23 22:37 01/11/23 22:27 Nasal Cannula 5 PG Care Time/CCT Total # of Minutes Spent Total Time Spent: 70 Total Time Spent with Patient: Total time spent is greater than 50% in coordination of care (as documented) at patient's floor/unit and/or counseling patient: goals of care, symptom management, hospice, prognosis, patient education and support, coordination of care Coding Level of Care Code 72379 INT INP/OBS CARE 2/55MIN Diagnoses Shortness of breath R06.02 Palliative care encounter Z51.5
[2023-01-12] MEDS: guaiFENesin 600 MG TABCR PO SCH ×2 (09:54→20:13)
[2023-01-12] MEDS: DOXYCYCLINE HYCLATE 100 MG CAP PO SCH ×2 (09:54→20:13)
[2023-01-12] MEDS: HEPARIN SOD 5,000 UNIT/0.5 ML VIAL SQ SCH ×2 (09:54→20:14)
[2023-01-12] MEDS: ASPIRIN 81 MG ECTAB PO SCH (09:54)
[2023-01-12] MEDS: predniSONE 10 MG TABLET PO SCH (09:54)
[2023-01-12] MEDS: lisinopril 5 MG TAB PO SCH (09:55)
[2023-01-12] MEDS: MULTIVITAMIN TAB PO SCH (09:55)
[2023-01-12] MEDS: VITAMIN B COMPLEX TAB PO SCH (09:55)
[2023-01-12] MEDS: ZINC SULFATE 220 MG CAPSULE PO SCH (09:55)
[2023-01-12] MEDS: traMADol HCL 50 MG TABLET PO PRN ×2 (10:01→16:10)
--- NOTE | 2023-01-12 11:43 | Hospitalist Progress Note ---
Date of Service January 12, 2023 Assessment & Plan (1) Acute exacerbation of chronic obstructive pulmonary disease: Plan: 67-year-old female presents with acute respiratory distress, acute on chronic respiratory failure, COPD exasperation. On home oxygen 6 L oxygen. Acute on chronic hypoxic hypercarbic respiratory failure. Chest x-ray personally reviewed; severe emphysema present; no infiltrate. Questionable nodular density present in left lung base. Likely artifact. CT chest from November 2022 reviewed; emphysema present; ABG interpreted; acute on chronic Respiratory failure Respiratory viral panel negative On prednisone 40 mg once daily as per pulmonology. DuoNeb every 8 hours Continue on doxycycline for now Budesonide and formoterol nebs Oxygen target of 88 to 92% BiPAP as needed for work of breathing Palliative consult done as per patient wishes Type 2 diabetes Carb controlled Monitor sugars while on steroids. Blood glucose within normal limits. Hypertension On lisinopril we will monitor the blood pressure Hyperlipidemia. On statin. DVT prophylaxis Lovenox. Disposition- PT/OT ordered Close monitoring telemetry floor. CODE STATUS DNR/DNI Please note the above document was generated using voice recognition software. It may contain grammatical, syntax or spelling errors. Any formal questions or concerns about the content, text or information contained within the body of this dictation should be directly addressed to the provider for clarification Admission and Anticipated Discharge Date Admission Date: January 10, 2023 Subjective Patient seen and examined at bedside. Patient appears more comfortable compared to yesterday; not in any respiratory distress. Reports improvement in the symptoms. Review of Systems Review of Systems: All systems reviewed & are unremarkable except as noted in Subjective Physical Exam Physical Exam: Constitutional: Appears comfortable; not in any distress. AOx3 Respiratory: Occasional wheeze present Cardiovascular: RRR, no murmur, no edema Vessels: no JVD or carotid bruit Chest: normal inspection of chest Abdomen: normal bowel sounds, soft, nontender, no hepatosplenomegaly Musculoskeletal: no cyanosis or clubbing, extremities motor strength 5/5 Skin: no rashes, warm and dry normal turgor Neurologic: Grossly intact. Psychiatric: A+Ox3, euthymic affect Results & Data Results & Data Vital Signs (Past 12 Hours) Vital Signs Temp Pulse Pulse Resp BP BP Pulse Ox 01/12/23 11:20 36.6 C 111 H 20 112/70 99 01/12/23 10:12 100 H 07/11/23 07:36 36.6 C 102 H 20 132/83 99 01/12/23 07:00 122 H 26 H 94 01/12/23 06:00 36.7 C 86 24 114/72 97 01/12/23 03:30 86 20 100 01/12/23 02:35 105 H 14 98 01/12/23 02:32 105 H 14 98 O2 Del Method O2 Flow Rate FiO2 01/12/23 11:20 Nasal Cannula 6 01/12/23 10:12 01/12/23 07:36 Nasal Cannula 6 01/12/23 07:00 Nasal Cannula 6 01/12/23 06:00 BiPAP 30 01/12/23 03:30 BiPAP 01/12/23 02:35 30 01/12/23 02:32 BiPAP 30 Laboratory Results Laboratory Results WBC 5.16 K/ul (4.8-10.8) 01/11/23 05:39 RBC 3.58 M/uL (4.20-5.40) L 01/11/23 05:39 Hgb 10.8 g/dl (12.0-16.0) L 01/11/23 05:39 Hct 35.2 % (37.0-47.0) L 01/11/23 05:39 MCV 98.3 fL (80.0-100.0) 01/11/23 05:39 MCH 30.2 pg (25.0-34.0) 01/11/23 05:39 MCHC 30.7 g/dL (32.0-36.0) L 01/11/23 05:39 RDW Std Deviation 39.2 fL (36.4-46.3) 01/11/23 05:39 RDW Coeff of Patricia 10.9 % (11.5-14.5) L 01/11/23 05:39 Plt Count 156 K/uL (130-400) 01/11/23 05:39 MPV 8.9 fL (9.4-12.4) L 01/11/23 05:39 Immature Gran % (Auto) 0.4 % 01/11/23 05:39 Neut % (Auto) 88.2 % 01/11/23 05:39 Lymph % (Auto) 6.0 % 01/11/23 05:39 [place] % (Auto) 5.4 % 01/11/23 05:39 Eos % (Auto) 0.0 % 01/11/23 05:39 Baso % (Auto) 0.0 % 01/11/23 05:39 Neut # (Auto) 4.55 K/uL (1.40-6.50) 01/11/23 05:39 Lymph # (Auto) 0.31 K/uL (1.2-3.4) L 01/11/23 05:39 [place] # (Auto) 0.28 K/uL (0.11-0.59) 01/11/23 05:39 Eos # (Auto) 0.00 K/uL (0-0.50) 01/11/23 05:39 Baso # (Auto) 0.00 K/uL (0-0.2) 01/11/23 05:39 Immature Gran # (Auto) 0.02 K/uL (0.01-0.20) 01/11/23 05:39 ABG pH 7.37 (7.35-7.45) 01/11/23 05:39 ABG pCO2 88 mmHg (35-46) H 01/11/23 05:39 ABG pO2 101 mmHg (80-95) H 01/11/23 05:39 ABG HCO3 51 mmol/L (19-24) H 01/11/23 05:39 ABG O2 Saturation 98.4 % (90-95) H 01/11/23 05:39 ABG Base Excess 20.5 mEq/L (-9-1.8) H 01/11/23 05:39 Mark Test POS (Pos) 01/11/23 05:39 VBG pH 7.32 (7.36-7.41) L 01/10/23 21:04 VBG pCO2 93 mmHg (38-50) H 01/10/23 21:04 VBG pO2 37 mmHg 01/10/23 21:04 VBG HCO3 48 mmol/L 01/10/23 21:04 VBG O2 Saturation 68.0 % 01/10/23 21:04 VBG Base Excess 16.9 mEq/L 01/10/23 21:04 Oxygen Given 6L O2 01/11/23 05:39 Sodium 137 mmol/L (136-145) 01/12/23 06:03 Potassium 4.7 mmol/L (3.5-5.1) 01/12/23 06:03 Chloride 89 mmol/L (98-107) L 01/12/23 06:03 Carbon Dioxide > 45 mmol/L (21-32) H* 01/12/23 06:03 Anion Gap TNP 01/12/23 06:03 BUN 21 mg/dl (6-23) 01/12/23 06:03 Creatinine 0.55 mg/dl (0.6-1.2) L 01/12/23 06:03 Est Cr Clr Drug Dosing 57.8 ml/min 01/12/23 06:03 Est GFR ( Amer) 112.5 ml/min 01/12/23 06:03 Est GFR (Non-Af Amer) 97.1 ml/min 01/12/23 06:03 BUN/Creatinine Ratio 38.2 (10-20) H 01/12/23 06:03 Glucose 108 mg/dl (70-99(Fasting)) H 01/12/23 06:03 Calcium 9.9 mg/dl (8.6-10.3) 01/12/23 06:03 Magnesium 2.1 mg/dl (1.7-2.4) 01/11/23 05:39 Total Bilirubin 0.2 mg/dl (0.2-1.0) 01/12/23 06:03 AST 25 U/L (13-39) 01/12/23 06:03 ALT 18 U/L (7-52) 01/12/23 06:03 Alkaline Phosphatase 72 U/L (34-104) 01/12/23 06:03 Troponin I High Sens 6.2 pg/ml (0-14) 01/10/23 19:10 B-Natriuretic Peptide 23 pg/ml (0-100) 01/10/23 19:10 Total Protein 6.3 gm/dl (6.0-8.3) 01/12/23 06:03 Albumin 4.0 gm/dl (3.4-5.0) 01/12/23 06:03 Globulin 2.3 gm/dl (2.5-4.0) L 01/12/23 06:03 Albumin/Globulin Ratio 1.7 (0.9-2) 01/12/23 06:03 Urine Color Yellow 01/11/23 01:40 Urine Appearance Clear (Clear) 01/11/23 01:40 Urine pH 6.5 (4.5-7.5) 01/11/23 01:40 Ur Specific [place] 1.022 (1.000-1.030) 01/11/23 01:40 Urine Protein 1+ (Negative) H 01/11/23 01:40 Urine Glucose (UA) Negative (Negative) 01/11/23 01:40 Urine Ketones 3+ (Negative) H 01/11/23 01:40 Urine Blood Negative (Negative) 01/11/23 01:40 Urine Nitrite Negative (Negative) 01/11/23 01:40 Urine Bilirubin Negative (Negative) 01/11/23 01:40 Urine Urobilinogen Negative (Negative) 01/11/23 01:40 Ur Leukocyte Esterase Negative (Negative) 01/11/23 01:40 Urine WBC (Auto) 1-5 /hpf (0-5) 01/11/23 01:40 Urine RBC (Auto) 10-30 /hpf (0-4) H 01/11/23 01:40 U Hyaline Cast (Auto) 0 /lpf (0-5) 01/11/23 01:40 U Epithel Cells (Auto) 20-30 /lpf (0-5) H 01/11/23 01:40 Urine Bacteria (Auto) Negative (Negative) 01/11/23 01:40 Adenovirus (PCR) Not Detected (NotDetected) 01/10/23 19:15 B. pertussis DNA (PCR) Not Detected (NotDetected) 01/10/23 19:15 B.parapertussis DNA PCR Not Detected (NotDetected) 01/10/23 19:15 C. pneumoniae DNA (PCR) Not Detected (NotDetected) 01/10/23 19:15 Coronavirus OC43 (PCR) Not Detected (NotDetected) 01/10/23 19:15 Coronavirus HKU1 (PCR) Not Detected (NotDetected) 01/10/23 19:15 Coronavirus 229E (PCR) Not Detected (NotDetected) 01/10/23 19:15 SARS-CoV-2 (PCR) Not Detected (NotDetected) 01/10/23 19:15 Coronavirus NL63 (PCR) Not Detected (NotDetected) 01/10/23 19:15 Human Metapneumovir PCR Not Detected (NotDetected) 01/10/23 19:15 Influenza Type A (PCR) Not Detected (NotDetected) 01/10/23 19:15 Influenza Type B (PCR) Not Detected (NotDetected) 01/10/23 19:15 M. pneumoniae (PCR) Not Detected (NotDetected) 01/10/23 19:15 Parainfluenza 1 (PCR) Not Detected (NotDetected) 01/10/23 19:15 Parainfluenza 2 (PCR) Not Detected (NotDetected) 01/10/23 19:15 Parainfluenza 3 (PCR) Not Detected (NotDetected) 01/10/23 19:15 Parainfluenza 4 (PCR) Not Detected (NotDetected) 01/10/23 19:15 RSV (PCR) Not Detected (NotDetected) 01/10/23 19:15 Entero/Rhino (PCR) Not Detected (NotDetected) 01/10/23 19:15 Impressions Chest X-Ray 01/10/23 19:09 XR chest 1V portable HISTORY: 67 years-old Female Dyspnea acute shortness of breath COMPARISON: 11/27/2022 TECHNIQUE: AP view the chest FINDINGS: Severe emphysema with chronic interstitial coarsening. 2.3 cm nodular density projects over the left lung base. No pneumothorax, pleural effusion or overt pulmonary edema. Surgical clips of the abdominal right upper quadrant. IMPRESSION: 1. Severe emphysema without acute intrathoracic abnormality. 2. 2.3 cm nodular density projects over the lateral left lung base, likely secondary to overlying summation density with ribs and nipple shadow. Follow-up radiographs with nipple markers recommended. ACT 112: Negative or not required by law. The above report was generated using voice recognition software. It may contain grammatical, syntax or spelling errors. Electronically signed by: Wilmer Landrum M.D. 01/10/2023 7:51 PM
--- NOTE | 2023-01-12 18:03 | Electrocardiogram Report ---
Test Reason : Blood Pressure : / mmHG Vent. Rate : 093 BPM Atrial Rate : 093 BPM P-R Int : 144 ms QRS Dur : 078 ms QT Int : 316 ms P-R-T Axes : 071 075 065 degrees QTc Int : 392 ms Normal sinus rhythm Normal ECG When compared with ECG of 11-JAN-2023 07:46, No significant change was found Confirmed by Shaun Brown [id number] on 01/12/2023 6:03:20 PM Referred By: REFERRED SELF Confirmed By:Foster Brown
[2023-01-12] MEDS: ATORVASTATIN 10 MG TAB PO SCH (20:14)
[2023-01-12] MEDS ORDERED: LORazepam 2 MG/1 ML VIAL IV STA (22:01)
[2023-01-13] MEDS: traZODone HCL 50 MG TAB PO SCH ×2 (02:12→22:14)
[2023-01-13] MEDS: PANTOprazole 40 MG TAB PO SCH (06:14)
[2023-01-13] MEDS: FORMOTEROL 20 MCG/2 ML VIAL INH SCH ×2 (07:00→19:24)
[2023-01-13] MEDS: BUDESONIDE 0.5 MG/2 ML VIAL (PULMICORT) INH SCH ×2 (07:01→19:24)
[2023-01-13] MEDS: ALBUT/IPRATROP 3MG/0.5MG NEB 3 ML VIAL NEB SCH ×3 (07:01→22:20)
[2023-01-13 07:39] LABS: Eosinophils # (auto) 0.08 K/uL (0-0.50); Eosinophils % (auto) 1.1 %; Hematocrit (blood only) 32.5 % (37.0-47.0); Hemoglobin 10.3 g/dl (12.0-16.0); Immature Granulocytes # (auto) 0.02 K/uL (0.01-0.20); Immature Granulocytes % (auto) 0.3 %; Lymphocytes % (auto) 22.8 %; Mean Corpuscular Hemoglobin 30.4 pg (25.0-34.0); Mean Corpuscular Hgb Conc 31.7 g/dL (32.0-36.0); Mean Corpuscular Volume 95.9 fL (80.0-100.0); Mean Platelet Volume 9.2 fL (9.4-12.4); Monocytes # (auto) 0.81 K/uL (0.11-0.59); Monocytes % (auto) 11.6 %; Neutrophils % (auto) 64.2 %; Platelet Count 169 K/uL (130-400); RDW Coefficient of Variation 11.5 % (11.5-14.5); RDW Standard Deviation 40.5 fL (36.4-46.3); Red Blood Count 3.39 M/uL (4.20-5.40); White Blood Count 7.01 K/ul (4.8-10.8)
[2023-01-13] MEDS: guaiFENesin 600 MG TABCR PO SCH ×2 (07:53→22:11)
[2023-01-13] MEDS: MULTIVITAMIN TAB PO SCH (07:53)
[2023-01-13] MEDS: DOXYCYCLINE HYCLATE 100 MG CAP PO SCH (07:53)
[2023-01-13] MEDS: VITAMIN B COMPLEX TAB PO SCH (07:53)
[2023-01-13] MEDS: ZINC SULFATE 220 MG CAPSULE PO SCH (07:53)
[2023-01-13] MEDS: ASPIRIN 81 MG ECTAB PO SCH (07:54)
[2023-01-13] MEDS: HEPARIN SOD 5,000 UNIT/0.5 ML VIAL SQ SCH ×2 (07:54→22:14)
[2023-01-13] MEDS: lisinopril 5 MG TAB PO SCH (07:54)
[2023-01-13] MEDS: traMADol HCL 50 MG TABLET PO PRN ×2 (07:59→15:46)
[2023-01-13 08:19] LABS: BUN Creatinine Ratio 35.1 (10-20); Blood Urea Nitrogen 20 mg/dl (6-23); Calcium 9.3 mg/dl (8.6-10.3); Carbon Dioxide > 45 mmol/L (21-32); Chloride 90 mmol/L (98-107); Est GFR (African American) 111.2 ml/min; Est GFR (Non-African American) 95.9 ml/min; Glucose 97 mg/dl (70-99(Fasting)); Potassium 3.9 mmol/L (3.5-5.1); Sodium 137 mmol/L (136-145)
[2023-01-13] MEDS ORDERED: predniSONE 20 MG TAB PO SCH (09:00)
--- NOTE | 2023-01-13 11:37 | Pulmonology Progress Note ---
Date of Service January 13, 2023 Assessment & Plan (1) Acute exacerbation of chronic obstructive pulmonary disease: (2) Chronic hypoxemic respiratory failure: (3) Chronic hypercapnic respiratory failure: Plan Impression: 67-year-old female with end-stage obstructive lung disease and hypoxemic and hypercarbic respiratory failure admitted with exacerbation. She unfortunately continues her tobacco habit. She is now losing weight unintentionally which portends a poor prognosis for her. She has elected to not pursue aggressive interventions and is interested in a discussion of symptom management therapy i.e. palliative care/hospice. She wants to discontinue the prednisone and transition to nebulized therapies Recommendations: 1. Acute exacerbation of COPD: We will discontinue prednisone at the patient's request. Continue nebulized budesonide Perforomist. We will put her back on azithromycin. Continue DuoNebs on an as-needed basis. Her discharge/outpatient regiment should be: -Budesonide 0.5 mg nebulized twice daily -Perforomist 20 mcg nebulized twice daily -DuoNebs, 3 mL as needed up to 4 times a day Could consider the addition of nebulized [place] in the outpatient setting depending on clinical response 2. Hypercarbic respiratory failure: Continue nightly AVAPS 3. Tachycardia: EKG yesterday did not demonstrate MAT but the patient is certai nly at risk of atrial arrhythmias. Disposition after the patient's meets with case management. Admission and Anticipated Discharge Date Admission Date: January 10, 2023 Subjective Patient seen and examined. EMR reviewed. Patient reports that she is doing okay. She was able to tolerate noninvasive positive pressure ventilation for about 6 hours last night. She slept reas onably well. She feels her breathing is better. She has multiple questions about which breathing treatments she is to be using and ensuring the she has an appropriate supply of medications to go home with. She has met with palliative care and is pending meeting with case management today to discuss hospice. She is interested in possible appetite supplements. She has tried edibles in the past. Patient requests to come off of prednisone. She states she does not like the way it makes her feel and she is never noted a significant benefit associated with her breathing with this medication. Review of Systems Review of Systems: All systems reviewed & are unremarkable except as noted in Subjective Physical Exam Constitutional: + cachectic, + physical limitations and + frail appearing Eyes: PERRL, conjunctivae normal, anicteric sclerae ENMT: external ear and nose normal, oropharynx normal Neck: trachea midline, no thyromegaly Respiratory: normal respiratory effort, + abnormal respiratory pattern and + audible wheezes; does not use accessory muscles Auscultation: + diminished lung sounds and + abnormal I/E ratio Cardiovascular: Heart Sounds: normal S1 and normal S2; no murmur Extremities: no edema Musculoskeletal: no cyanosis or clubbing, extremities motor strength 5/5 Skin: no rashes, warm and dry Neurologic: PERRL, EOMI, accommodation nl, no face palsy, no dysarthria Psychiatric: Orientation: alert and oriented x 3 Mood: + depressed mood Results & Data Results & Data Vital Signs (Past 12 Hours) Vital Signs Temp Pulse Pulse Resp BP BP Pulse Ox 01/13/23 11:26 01/13/23 08:50 37.0 C 79 18 108/74 97 01/13/23 08:32 94 H 01/13/23 07:01 106 H 24 100 01/13/23 03:10 15 99 01/13/23 02:30 89 22 123/64 98 O2 Del Method O2 Flow Rate FiO2 01/13/23 11:26 Nasal Cannula 5 01/13/23 08:50 Room Air 01/13/23 08:32 01/13/23 07:01 Nasal Cannula 5 01/13/23 03:10 30 01/13/23 02:30 BiPAP 30 Laboratory Results 01/13/23 06:41 01/13/23 06:41 Diagnostic Findings no new imaging PG Care Time/CCT Total # of Minutes Spent Total Time Spent with Patient: Total time spent is greater than 50% in coordination of care (as documented) at patient's floor/unit and/or counseling patient: Coding Level of Care Code 75701 SUB INP/OBS CARE 3/50MIN Diagnoses Acute exacerbation of chronic obstructive pulmonary disease J44.1 Chronic hypoxemic respiratory failure J96.11 Chronic hypercapnic respiratory failure J96.12
[2023-01-13] MEDS: AZITHROMYCIN 250 MG TAB PO SCH (13:03)
--- NOTE | 2023-01-13 17:15 | Hospitalist Progress Note ---
Date of Service January 13, 2023 Assessment & Plan (1) Acute exacerbation of chronic obstructive pulmonary disease: Plan: 67-year-old female presents with acute respiratory distress, acute on chronic respiratory failure, COPD exasperation. On home oxygen 6 L oxygen. Acute on chronic hypoxic hypercarbic respiratory failure. Acute COPD exacerbation -Chest x-ray:Severe emphysema without acute intrathoracic abnormality. 2.3 cm nodular density projects over the lateral left lung base, likely secondary to overlying summation density with ribs and nipple shadow. Follow-up radiographs with nipple markers recommended. Respiratory viral panel negative Continue budesonide, Perforomist Continue azithromycin Prednisone discontinued On trilogy at baseline Prefers to be transition to hospice upon discharge Appreciate pulmonology, Palliative care input Titrate supplemental oxygen to keep saturations 88 to 92% Type 2 diabetes Carb controlled Monitor sugars Blood glucose within normal limits. Hypertension On lisinopril we will monitor the blood pressure Hyperlipidemia. On statin. DVT prophylaxis Lovenox SQ CODE STATUS DNR/DNI Disposition Patient refused PT OT eval Plan to discharge home as able and eventually transition to hospice Admission and Anticipated Discharge Date Admission Date: January 10, 2023 Subjective Patient is seen and examined at bedside Less cough, shortness of breath today Denies any chest pain, dizziness, nausea, vomiting, abdominal pain Tolerated noninvasive positive pressure ventilation overnight Saturating well on 5 L supplemental oxygen Review of Systems Review of Systems: All systems reviewed & are unremarkable except as noted in Subjective Physical Exam Physical Exam: Physical Exam: Vitals signs as noted above General Appearance:Thin, Frail, Chronic ill appearing, no apparent distress Head: normocephalic, Atraumatic Eyes: normal inspection, EOMI Neck: supple, Trachea midline Respiratory/Chest: Decreased breath sounds, CTA, No accessory muscle use Cardiovascular: S1, S2, No murmur Abdomen/GI:Soft, Non tender, Bowel sounds present Extremities/Musculoskeletal:normal inspection, no edema Neurologic/Psych:AAOX3, grossly no focal neurological deficits Skin: normal color, warm Results & Data Results & Data Vital Signs (Past 12 Hours) Vital Signs Temp Pulse Pulse Resp BP Pulse Ox O2 Del Method 01/13/23 15:26 110 H 01/13/23 15:20 106 H 24 100 Nasal Cannula 01/13/23 11:42 36.5 C 108 H 20 124/64 97 Nasal Cannula 01/13/23 11:26 Nasal Cannula 01/13/23 08:50 37.0 C 79 18 108/74 97 Room Air 01/13/23 08:32 94 H 01/13/23 07:01 106 H 24 100 Nasal Cannula O2 Flow Rate 01/13/23 15:26 01/13/23 15:20 5 01/13/23 11:42 6 01/13/23 11:26 5 01/13/23 08:50 01/13/23 08:32 01/13/23 07:01 5 Laboratory Results Short CBC 01/13/23 Range/Units 06:41 WBC 7.01 (4.8-10.8) K/ul Hgb 10.3 L (12.0-16.0) g/dl Hct 32.5 L (37.0-47.0) % Plt Count 169 (130-400) K/uL BMP 01/13/23 06:41 Sodium 137 Potassium 3.9 Chloride 90 L Carbon Dioxide > 45 H* BUN 20 Creatinine 0.57 L Glucose 97 Calcium 9.3
[2023-01-13] MEDS ORDERED: LORazepam 0.5 MG TAB PO PRN (20:09)
[2023-01-13] MEDS ORDERED: LORazepam 0.5 MG TAB ONE (20:12)
[2023-01-13] MEDS: ATORVASTATIN 10 MG TAB PO SCH (22:11)
[2023-01-14] MEDS ORDERED: BUDESONIDE 0.5 MG/2 ML VIAL (PULMICORT) INH SCH
[2023-01-14] MEDS: PANTOprazole 40 MG TAB PO SCH (05:47)
[2023-01-14] MEDS: FORMOTEROL 20 MCG/2 ML VIAL INH SCH (07:02)
[2023-01-14] MEDS: BUDESONIDE 0.5 MG/2 ML VIAL (PULMICORT) INH SCH (07:02)
[2023-01-14] MEDS: ALBUT/IPRATROP 3MG/0.5MG NEB 3 ML VIAL NEB SCH ×2 (07:02→15:34)
[2023-01-14] MEDS: MULTIVITAMIN TAB PO SCH (08:20)
[2023-01-14] MEDS: traMADol HCL 50 MG TABLET PO PRN (08:20)
[2023-01-14] MEDS: VITAMIN B COMPLEX TAB PO SCH (08:21)
[2023-01-14] MEDS: lisinopril 5 MG TAB PO SCH (08:21)
[2023-01-14] MEDS: ASPIRIN 81 MG ECTAB PO SCH (08:21)
[2023-01-14] MEDS: guaiFENesin 600 MG TABCR PO SCH (08:21)
[2023-01-14] MEDS: HEPARIN SOD 5,000 UNIT/0.5 ML VIAL SQ SCH (08:21)
[2023-01-14] MEDS: AZITHROMYCIN 250 MG TAB PO SCH (08:21)
[2023-01-14] MEDS: ZINC SULFATE 220 MG CAPSULE PO SCH (08:22)
--- NOTE | 2023-01-14 08:36 | Pulmonology Progress Note ---
Date of Service January 14, 2023 Assessment & Plan (1) Acute exacerbation of chronic obstructive pulmonary disease: (2) Chronic hypoxemic respiratory failure: (3) Chronic hypercapnic respiratory failure: Plan Impression: 67-year-old female with end-stage obstructive lung disease and hypoxemic and hypercarbic respiratory failure admitted with exacerbation. She unfortunately continues her tobacco habit. She is now losing weight unintentionally which portends a poor prognosis for her. She has elected to not pursue aggressive interventions and is interested in a discussion of symptom management therapy i.e. palliative care/hospice. She wants to discontinue the prednisone and transition to nebulized therapies Recommendations: 1. Acute exacerbation of COPD now off prednisone at the patient's request. Continue nebulized budesonide Perforomist. Complete 5-day course of a zithromycin and then go back to azithromycin Wednesday and Wednesday. Continue DuoNebs on an as-needed basis. Her discharge/outpatient regiment should be: -Budesonide 0.5 mg nebulized twice daily -Perforomist 20 mcg nebulized twice daily -Spiriva 1 puff twice daily -Azithromycin 250 mg orally every Wednesday and Wednesday -DuoNebs, 3 mL as needed up to 4 times a day Could consider the addition of nebulized Yuperli instead of Spiriva in the outpatient setting if she feels better with nebulized therapies. She is awaiting additional information on hospice 2. Hypercarbic respiratory failure: Continue nightly AVAPS 3. Tachycardia: Resolved 4. Hypoxemic respiratory failure: At baseline oxygen requirement. Continue oxygen titrated to keep saturations around 85 to 89% Patient appears to have achieved maximal benefit from inpatient evaluation. Will defer disposition to the primary service but from a lung perspective she appears appropriate to discharge home. She can follow-up with Dr. Thomas in the outpatinet setting. Feel free to contact us with questions. Admission and Anticipated Discharge Date Admission Date: January 10, 2023 Subjective Patient seen and examined. She thinks she is doing reasonably well. She is ambulating and feels like she is approaching her baseline. She is inquiring again about discharge. Review of Systems Review of Systems: All systems reviewed & are unremarkable except as noted in Subjective Physical Exam Constitutional: + cachectic, + physical limitations and + frail appearing Eyes: PERRL, conjunctivae normal, anicteric sclerae ENMT: external ear and nose normal, oropharynx normal Neck: trachea midline, no thyromegaly Respiratory: normal respiratory effort, + abnormal respiratory pattern and + audible wheezes; does not use accessory muscles Auscultation: + diminished lung sounds and + abnormal I/E ratio Cardiovascular: Heart Sounds: normal S1 and normal S2; no murmur Extremities: no edema Musculoskeletal: no cyanosis or clubbing, extremities motor strength 5/5 Skin: no rashes, warm and dry Neurologic: PERRL, EOMI, accommodation nl, no face palsy, no dysarthria Psychiatric: Orientation: alert and oriented x 3 Mood: + depressed mood Results & Data Results & Data Vital Signs (Past 12 Hours) Vital Signs Temp Pulse Pulse Resp BP Pulse Ox O2 Del Method 01/14/23 08:14 36.5 C 79 16 104/66 96 Nasal Cannula 01/14/23 08:05 82 01/14/23 07:02 108 H 18 99 Nasal Cannula 01/14/23 03:40 36.5 C 72 20 99/58 L 98 BiPAP 01/14/23 02:11 14 01/13/23 22:01 87 01/13/23 23:15 36.5 C 81 22 95/60 L 99 BiPAP 01/13/23 22:21 118 H 23 99 01/13/23 22:20 118 H 23 98 BiPAP O2 Flow Rate FiO2 01/14/23 08:14 5 01/14/23 08:05 01/14/23 07:02 5 01/14/23 03:40 01/14/23 02:11 30 01/13/23 22:01 01/13/23 23:15 01/13/23 22:21 30 01/13/23 22:20 30 Laboratory Results 01/13/23 06:41 PG Care Time/CCT Total # of Minutes Spent Total Time Spent with Patient: Total time spent is greater than 50% in coordination of care (as documented) at patient's floor/unit and/or counseling patient: Coding Level of Care Code 20472 SUB INP/OBS CARE 2/35MIN Diagnoses Acute exacerbation of chronic obstructive pulmonary disease J44.1 Chronic hypoxemic respiratory failure J96.11 Chronic hypercapnic respiratory failure J96.12
[2023-01-14 08:43] LABS: Calcium 9.1 mg/dl (8.6-10.3); Creatinine Clr Calc Pharmacy 64.5 ml/min; Est GFR (African American) 116.1 ml/min; Est GFR (Non-African American) 100.2 ml/min; Potassium 3.8 mmol/L (3.5-5.1)
--- NOTE | 2023-01-14 13:19 | Hospitalist Progress Note ---
Date of Service January 14, 2023 Assessment & Plan (1) Acute exacerbation of chronic obstructive pulmonary disease: Plan: 67-year-old female presents with acute respiratory distress, acute on chronic respiratory failure, COPD exasperation. On home oxygen 6 L oxygen. Acute on chronic hypoxic hypercarbic respiratory failure. Acute COPD exacerbation -Chest x-ray:Severe emphysema without acute intrathoracic abnormality. 2.3 cm nodular density projects over the lateral left lung base, likely secondary to overlying summation density with ribs and nipple shadow. Follow-up radiographs with nipple markers recommended. Respiratory viral panel negative Continue budesonide, Perforomist Continue azithromycin X 3 per week per Pulmnologist Prednisone discontinued On trilogy at baseline Appreciate pulmonology, Palliative care input Titrate supplemental oxygen to keep saturations 88 to 92% Plan to be discharge home today and eventually transition to hospice DM II Carb controlled Monitor sugars Blood glucose within normal limits. Hypertension On lisinopril we will monitor the blood pressure Hyperlipidemia. On statin. DVT prophylaxis Lovenox SQ CODE STATUS DNR/DNI Disposition Plan to discharge home and eventually transition to hospice Admission and Anticipated Discharge Date Admission Date: January 10, 2023 Subjective Patient is seen and examined at bedside States feeling much better today No significant dyspnea. Cough much improved No new complaints Plan to be discharged home today Saturating well on 5 L supplemental oxygen Denies any chest pain, dizziness, nausea, vomiting, abdominal pain Review of Systems Review of Systems: All systems reviewed & are unremarkable except as noted in Subjective Physical Exam Physical Exam: Physical Exam: Vitals signs as noted above General Appearance:Thin, Frail, Chronic ill appearing, no apparent distress Head: normocephalic, Atraumatic Eyes: normal inspection, EOMI Neck: supple, Trachea midline Respiratory/Chest: Decreased breath sounds, CTA, No accessory muscle use Cardiovascular: S1, S2, No murmur Abdomen/GI:Soft, Non tender, Bowel sounds present Extremities/Musculoskeletal:normal inspection, no edema Neurologic/Psych:AAOX3, grossly no focal neurological deficits Skin: normal color, warm Results & Data Results & Data Vital Signs (Past 12 Hours) Vital Signs Temp Pulse Pulse Resp BP Pulse Ox O2 Del Method 01/14/23 08:14 36.5 C 79 16 104/66 96 Nasal Cannula 01/14/23 08:05 82 01/14/23 07:02 108 H 18 99 Nasal Cannula 01/14/23 03:40 36.5 C 72 20 99/58 L 98 BiPAP 01/14/23 02:11 14 O2 Flow Rate FiO2 01/14/23 08:14 5 01/14/23 08:05 01/14/23 07:02 5 01/14/23 03:40 01/14/23 02:11 30 Laboratory Results BMP 01/14/23 07:05 Sodium 137 Potassium 3.8 Chloride 91 L Carbon Dioxide 45 H* BUN 16 Creatinine 0.50 L Glucose 96 Calcium 9.1
--- NOTE | 2023-01-14 13:50 | Discharge Summary ---
Date of Service January 14, 2023 Admission HPI Per Admitting Provider 67-year-old female with past medical history significant for type 2 diabetes, diabetic polyneuropathy, Sever COPD, chronic rhinitis, hypertension, reflux esophagitis, depression, tobacco abuse presents with respiratory distress and COPD exacerbation. Patient is on home oxygen 6 L chronically. As per ER she had ongoing cough for 1 week but the last couple of days got worse and she was requiring 7 L of oxygen today. In the ER her serum CO2 was 120 and pH was 7.24. Placed on BiPAP and other CO2 and pH was improving. In the ER she was given IV Ativan 0.5 mg and currently very drowsy and could not get any history from the patient currently. Patient afebrile. Opens eyes and says she is feeling better. Past medical history as mentioned above Past surgical history: Colposcopy. Cryocautery of cervix. Cystoscopy. Dental surgery. Ligation of oviducts. 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 Tonsillectomy and adenoidectomy. Admission Exam Per Admitting Provider General- adult Head- atraumatic Eyes- PERRL, Lungs- Diminished bilateral breath sounds, mild tachypnea Heart- regular rhythm; no murmur, no gallop, no rub appreciated Abdomen- normal bowel sounds, soft, nontender, no masses or hepatosplenomegaly Extremities- no pretibial edema, no erythema. Neuro- drowsy, opens eyes on calling and goes back to sleep. moving extremities for painful stimuli Skin- warm & dry Principal Diagnosis Acute on chronic hypoxic hypercarbic respiratory failure. Acute COPD exacerbation Discharge Data Allergies Allergy/AdvReac Type Severity Reaction Status Date / Time prednisone AdvReac Intermediate Confusion/PSYCH Verified 01/10/23 20:39 COMPLICATIONS PER [facility] MED LIST Consultations 01/10/23 20:55 ED Decision to Admit Stat 01/11/23 08:00 Consult Pulmonology Routine 01/11/23 14:43 Consult Palliative Care Routine Procedures Performed Laboratory Results WBC 7.01 K/ul (4.8-10.8) 01/13/23 06:41 RBC 3.39 M/uL (4.20-5.40) L 01/13/23 06:41 Hgb 10.3 g/dl (12.0-16.0) L 01/13/23 06:41 Hct 32.5 % (37.0-47.0) L 01/13/23 06:41 MCV 95.9 fL (80.0-100.0) 01/13/23 06:41 MCH 30.4 pg (25.0-34.0) 01/13/23 06:41 MCHC 31.7 g/dL (32.0-36.0) L 01/13/23 06:41 RDW Std Deviation 40.5 fL (36.4-46.3) 01/13/23 06:41 RDW Coeff of Patricia 11.5 % (11.5-14.5) 01/13/23 06:41 Plt Count 169 K/uL (130-400) 01/13/23 06:41 MPV 9.2 fL (9.4-12.4) L 01/13/23 06:41 Immature Gran % (Auto) 0.3 % 01/13/23 06:41 Neut % (Auto) 64.2 % 01/13/23 06:41 Lymph % (Auto) 22.8 % 01/13/23 06:41 Norman % (Auto) 11.6 % 01/13/23 06:41 Eos % (Auto) 1.1 % 01/13/23 06:41 Baso % (Auto) 0.0 % 01/13/23 06:41 Neut # (Auto) 4.50 K/uL (1.40-6.50) 01/13/23 06:41 Lymph # (Auto) 1.60 K/uL (1.2-3.4) 01/13/23 06:41 Norman # (Auto) 0.81 K/uL (0.11-0.59) H 01/13/23 06:41 Eos # (Auto) 0.08 K/uL (0-0.50) 01/13/23 06:41 Baso # (Auto) 0.00 K/uL (0-0.2) 01/13/23 06:41 Immature Gran # (Auto) 0.02 K/uL (0.01-0.20) 01/13/23 06:41 ABG pH 7.37 (7.35-7.45) 01/11/23 05:39 ABG pCO2 88 mmHg (35-46) H 01/11/23 05:39 ABG pO2 101 mmHg (80-95) H 01/11/23 05:39 ABG HCO3 51 mmol/L (19-24) H 01/11/23 05:39 ABG O2 Saturation 98.4 % (90-95) H 01/11/23 05:39 ABG Base Excess 20.5 mEq/L (-9-1.8) H 01/11/23 05:39 Mark Test POS (Pos) 01/11/23 05:39 VBG pH 7.32 (7.36-7.41) L 01/10/23 21:04 VBG pCO2 93 mmHg (38-50) H 01/10/23 21:04 VBG pO2 37 mmHg 01/10/23 21:04 VBG HCO3 48 mmol/L 01/10/23 21:04 VBG O2 Saturation 68.0 % 01/10/23 21:04 VBG Base Excess 16.9 mEq/L 01/10/23 21:04 Oxygen Given 6L O2 01/11/23 05:39 Sodium 137 mmol/L (136-145) 01/14/23 07:05 Potassium 3.8 mmol/L (3.5-5.1) 01/14/23 07:05 Chloride 91 mmol/L (98-107) L 01/14/23 07:05 Carbon Dioxide 45 mmol/L (21-32) H* 01/14/23 07:05 Anion Gap 1 (3-11) L 01/14/23 07:05 BUN 16 mg/dl (6-23) 01/14/23 07:05 Creatinine 0.50 mg/dl (0.6-1.2) L 01/14/23 07:05 Est Cr Clr Drug Dosing 64.5 ml/min 01/14/23 07:05 Est GFR ( Amer) 116.1 ml/min 01/14/23 07:05 Est GFR (Non-Af Amer) 100.2 ml/min 01/14/23 07:05 BUN/Creatinine Ratio 32.0 (10-20) H 01/14/23 07:05 Glucose 96 mg/dl (70-99(Fasting)) 01/14/23 07:05 Calcium 9.1 mg/dl (8.6-10.3) 01/14/23 07:05 Magnesium 2.1 mg/dl (1.7-2.4) 01/11/23 05:39 Total Bilirubin 0.2 mg/dl (0.2-1.0) 01/12/23 06:03 AST 25 U/L (13-39) 01/12/23 06:03 ALT 18 U/L (7-52) 01/12/23 06:03 Alkaline Phosphatase 72 U/L (34-104) 01/12/23 06:03 Troponin I High Sens 6.2 pg/ml (0-14) 01/10/23 19:10 B-Natriuretic Peptide 23 pg/ml (0-100) 01/10/23 19:10 Total Protein 6.3 gm/dl (6.0-8.3) 01/12/23 06:03 Albumin 4.0 gm/dl (3.4-5.0) 01/12/23 06:03 Globulin 2.3 gm/dl (2.5-4.0) L 01/12/23 06:03 Albumin/Globulin Ratio 1.7 (0.9-2) 01/12/23 06:03 Urine Color Yellow 01/11/23 01:40 Urine Appearance Clear (Clear) 01/11/23 01:40 Urine pH 6.5 (4.5-7.5) 01/11/23 01:40 Ur Specific [place] 1.022 (1.000-1.030) 01/11/23 01:40 Urine Protein 1+ (Negative) H 01/11/23 01:40 Urine Glucose (UA) Negative (Negative) 01/11/23 01:40 Urine Ketones 3+ (Negative) H 01/11/23 01:40 Urine Blood Negative (Negative) 01/11/23 01:40 Urine Nitrite Negative (Negative) 01/11/23 01:40 Urine Bilirubin Negative (Negative) 01/11/23 01:40 Urine Urobilinogen Negative (Negative) 01/11/23 01:40 Ur Leukocyte Esterase Negative (Negative) 01/11/23 01:40 Urine WBC (Auto) 1-5 /hpf (0-5) 01/11/23 01:40 Urine RBC (Auto) 10-30 /hpf (0-4) H 01/11/23 01:40 U Hyaline Cast (Auto) 0 /lpf (0-5) 01/11/23 01:40 U Epithel Cells (Auto) 20-30 /lpf (0-5) H 01/11/23 01:40 Urine Bacteria (Auto) Negative (Negative) 01/11/23 01:40 Adenovirus (PCR) Not Detected (NotDetected) 01/10/23 19:15 B. pertussis DNA (PCR) Not Detected (NotDetected) 01/10/23 19:15 B.parapertussis DNA PCR Not Detected (NotDetected) 01/10/23 19:15 C. pneumoniae DNA (PCR) Not Detected (NotDetected) 01/10/23 19:15 Coronavirus OC43 (PCR) Not Detected (NotDetected) 01/10/23 19:15 Coronavirus HKU1 (PCR) Not Detected (NotDetected) 01/10/23 19:15 Coronavirus 229E (PCR) Not Detected (NotDetected) 01/10/23 19:15 SARS-CoV-2 (PCR) Not Detected (NotDetected) 01/10/23 19:15 Coronavirus NL63 (PCR) Not Detected (NotDetected) 01/10/23 19:15 Human Metapneumovir PCR Not Detected (NotDetected) 01/10/23 19:15 Influenza Type A (PCR) Not Detected (NotDetected) 01/10/23 19:15 Influenza Type B (PCR) Not Detected (NotDetected) 01/10/23 19:15 M. pneumoniae (PCR) Not Detected (NotDetected) 01/10/23 19:15 Parainfluenza 1 (PCR) Not Detected (NotDetected) 01/10/23 19:15 Parainfluenza 2 (PCR) Not Detected (NotDetected) 01/10/23 19:15 Parainfluenza 3 (PCR) Not Detected (NotDetected) 01/10/23 19:15 Parainfluenza 4 (PCR) Not Detected (NotDetected) 01/10/23 19:15 RSV (PCR) Not Detected (NotDetected) 01/10/23 19:15 Entero/Rhino (PCR) Not Detected (NotDetected) 01/10/23 19:15 Impressions Chest X-Ray 01/10/23 19:09 XR chest 1V portable HISTORY: 67 years-old Female Dyspnea acute shortness of breath COMPARISON: 11/27/2022 TECHNIQUE: AP view the chest FINDINGS: Severe emphysema with chronic interstitial coarsening. 2.3 cm nodular density projects over the left lung base. No pneumothorax, pleural effusion or overt pulmonary edema. Surgical clips of the abdominal right upper quadrant. IMPRESSION: 1. Severe emphysema without acute intrathoracic abnormality. 2. 2.3 cm nodular density projects over the lateral left lung base, likely secondary to overlying summation density with ribs and nipple shadow. Follow-up radiographs with nipple markers recommended. ACT 112: Negative or not required by law. The above report was generated using voice recognition software. It may contain grammatical, syntax or spelling errors. Electronically signed by: Wilmer Landrum M.D. 01/10/2023 7:51 PM Hospital Course (1) Acute exacerbation of chronic obstructive pulmonary disease: 67-year-old female presents with acute respiratory distress, acute on chronic respiratory failure, COPD exasperation. On home oxygen 6 L oxygen. Acute on chronic hypoxic hypercarbic respiratory failure. Acute COPD exacerbation -Chest x-ray:Severe emphysema without acute intrathoracic abnormality. 2.3 cm nodular density projects over the lateral left lung base, likely secondary to overlying summation density with ribs and nipple shadow. Follow-up radiographs with nipple markers recommended. Respiratory viral panel negative Continue budesonide, Perforomist Continue azithromycin X 3 per week per Pulmnologist Prednisone discontinued On trilogy at baseline Appreciate pulmonology, Palliative care input Titrate supplemental oxygen to keep saturations 88 to 92% Plan to be discharge home today and eventually transition to hospice DM II Carb controlled Monitor sugars Blood glucose within normal limits. Hypertension On lisinopril we will monitor the blood pressure Hyperlipidemia. On statin. DVT prophylaxis Lovenox SQ CODE STATUS DNR/DNI Disposition Plan to discharge home and eventually transition to hospice Total Time Total Time Spent Total Time Spent (In Minutes): 53 minutes Discharge Plan Discharge Items Patient Disposition: Home - Self-Care Reason For Visit: COPD EX Discharge Diagnosis: Acute on chronic hypoxic hypercarbic respiratory failure. Acute COPD exacerbation Activity: Per Instructions section Exercise/Sports: Wait until after follow-up appointment Non-emergency contact: Primary Care Provider and Insole Channeler Call non-emergency contact if: you have any medication questions, your symptoms worsen, your pain is concerning for you and you have a fever Follow-up/Referrals: Damir De La Cruz MD [Primary Care Provider] - (Date & Time 01/20/2023 10:20 AM Provider Ana Luisa Mcclain PA-C [facility] ) Diet: Heart Healthy Diet Texture: Easy to Chew Addtl Attending Provider Instructions: Follow-up with your primary care physician on 01/20/2023 10:20 AM Follow-up with your 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 Jasso as needed Pending Studies at Discharge: No Stand-Alone Forms: My [facility] [employer], Smoking Cessation Medications and DC Order Prescriptions: New azithromycin 250 mg Tablet 250 mg PO UD Qty: 18 0RF Rx Instructions: I tablet daily On Wednesday, Wednesday and Wednesday only formoterol fumarate [Perforomist] 20 mcg/2 mL Solution For Nebulization 20 mcg inhalation BIDR Qty: 120 1RF ipratropium-albuterol 0.5 mg-3 mg(2.5 mg base)/3 mL Solution For Nebulization 3 ml NEB Q6H PRN (Reason: shortness of breath or wheezing) Qty: 180 1RF Continued (DME) Portable Oxygen Misc See Rx Instructions .Route Qty: 1 0RF Rx Instructions: Oxygen concentrator with portability 3-4LPM via n/c with exertion to maintain O2 sats 88-93% with oxygen conserving device. DEONDRE:99 aspirin [Adult Low Dose Aspirin] 81 mg tablet,delayed release (DR/EC) 81 mg PO QAM atorvastatin 10 mg tablet 10 mg PO HS trazodone 50 mg tablet 75 mg PO HS Rx Instructions: MAY INCREASE TO 2 TABS IN NEEDED FOR SLEEP lisinopril 5 mg tablet 5 mg PO QAM loratadine 10 mg capsule 10 mg PO DAILY PRN (Reason: allergies) meloxicam 15 mg tablet 15 mg PO QAM albuterol sulfate [Ventolin HFA] 90 mcg/actuation HFA aerosol inhaler 2 puffs INH Q4H PRN (Reason: Shortness Of Breath) multivitamin Tablet 1 tab PO DAILY vitamin B complex Capsule 1 cap PO DAILY esomeprazole magnesium 20 mg Capsule,Delayed Release(Dr/Ec) 20 mg PO DAILYBB tramadol 50 mg tablet 50 mg PO Q6H PRN (Reason: Pain, Moderate) zinc sulfate 50 mg zinc (220 mg) Tablet 50 mg PO DAILY guaifenesin [Mucinex] 600 mg Tablet Extended Release 12hr 600 mg PO BID Changed budesonide 0.5 mg/2 mL suspension for nebulization 0.5 mg inhalation BID 30 Days Qty: 120 1RF Spiriva Respimat 2.5 mcg/actuation mist 1 inh inhalation BID Qty: 4 1RF Discontinued albuterol sulfate 2.5 mg /3 mL (0.083 %) solution for nebulization 2.5 mg INH Q4H PRN (Reason: shortness of breath or wheezing) Qty: 540 11RF arformoterol 15 mcg/2 mL solution for nebulization 2 ml inhalation BID Qty: 120 11RF Discharge Orders: Discharge Order (Routine); Ordered 01/14/23 Ordered By: Arcadio Fox Admission Data Admit Date/Time: 01/10/23 23:24 Attending Provider: Arcadio Fox Admit Provider: Santiago Donato Primary Care Provider: Damir De La Cruz Other Providers: Santiago Donato ; Jer Jasso ; Gabriela Bo
== END 2023-01-14 16:09 | disposition home or self-care (01) | DRG 189 ==
LOC: ED 18:59 → 2S 23:24 → SUATTDRO 23:24 → 2S 01-11 00:40

== ENCOUNTER 2023-02-03 13:06 | Inpatient (IN) ==
[2023-02-03] MEDS ORDERED: methylPREDNISolone 125 MG/2 ML VIAL IV STA (13:20)
[2023-02-03] MEDS ORDERED: MAGNESIUM SULFATE / D5W 1 GM/100 ML BAG IV STA (13:22)
[2023-02-03 13:41] LABS: Base Excess VBG 18.3 mEq/L; HCO3 VBG 50 mmol/L; Oxygen Saturation VBG 89.8 %; PCO2 VBG 99 mmHg (38-50); PO2 VBG 59 mmHg; pH VBG 7.31 (7.36-7.41)
[2023-02-03 13:47] LABS: Basophils # (auto) 0.02 K/uL (0-0.2); Basophils % (auto) 0.2 %; Eosinophils # (auto) 0.08 K/uL (0-0.50); Eosinophils % (auto) 0.9 %; Hematocrit (blood only) 36.5 % (37.0-47.0); Hemoglobin 10.9 g/dl (12.0-16.0); Immature Granulocytes # (auto) 0.04 K/uL (0.01-0.20); Immature Granulocytes % (auto) 0.4 %; Lymphocytes # (auto) 0.69 K/uL (1.2-3.4); Lymphocytes % (auto) 7.5 %; Mean Corpuscular Hemoglobin 30.4 pg (25.0-34.0); Mean Corpuscular Hgb Conc 29.9 g/dL (32.0-36.0); Mean Platelet Volume 8.8 fL (9.4-12.4); Monocytes # (auto) 0.57 K/uL (0.11-0.59); Monocytes % (auto) 6.2 %; Neutrophils # (auto) 7.83 K/uL (1.40-6.50); Neutrophils % (auto) 84.8 %; Platelet Count 168 K/uL (130-400); RDW Coefficient of Variation 11.3 % (11.5-14.5); RDW Standard Deviation 42.5 fL (36.4-46.3); Red Blood Count 3.58 M/uL (4.20-5.40); White Blood Count 9.23 K/ul (4.8-10.8)
--- NOTE | 2023-02-03 13:51 | Emergency Department Note ---
History of Present Illness General Chief complaint: Shortness of Breath/Dyspnea Stated complaint: SOB Time Seen by Provider: 02/03/23 13:08 History of Present Illness 67-year-old female with a history of COPD emphysema and chronic respiratory failure presents emergency department with increased work of breathing over the past day. Patient was found to be hypoxic she was started on a nonrebreather at 10 L of oxygen. Patient states that she is improved she is able to speak in sentences however continues to complain of some shortness of breath. Patient does state some cough cold congestion symptoms. Patient denies chest pain. Patient denies hemoptysis. Patient had a recent admission in January for similar presentation. Home Medications Medication Instructions Recorded Confirmed Type aspirin 81 mg tablet,delayed 81 mg PO QAM 05/25/19 02/03/23 History release (Adult Low Dose Aspirin) atorvastatin 10 mg tablet 10 mg PO HS 05/25/19 02/03/23 History lisinopril 5 mg tablet 5 mg PO QAM 05/25/19 02/03/23 History loratadine 10 mg capsule 10 mg PO DAILY PRN allergies 05/25/19 02/03/23 History trazodone 50 mg tablet 75 mg PO HS 05/25/19 02/03/23 History albuterol sulfate 90 mcg/actuation 2 puffs inhalation Q4H PRN 05/26/19 02/03/23 History aerosol inhaler (Ventolin HFA) Shortness Of Breath meloxicam 15 mg tablet 15 mg PO QAM 05/26/19 02/03/23 History esomeprazole magnesium 20 mg 20 mg PO DAILYBB 11/13/21 02/03/23 History capsule,delayed release multivitamin 1 tab PO DAILY 11/13/21 02/03/23 History tramadol 50 mg tablet 50 mg PO Q6H PRN Pain, Moderate 11/13/21 02/03/23 History vitamin B complex 1 cap PO DAILY 11/13/21 02/03/23 History Portable Oxygen #1 ea 07/17/22 Rx guaifenesin 600 mg tablet, 600 mg PO BID 01/10/23 02/03/23 History extended release 12 hr (Mucinex) zinc sulfate 50 mg zinc (220 mg) 50 mg PO DAILY 01/10/23 02/03/23 History tablet budesonide 0.5 mg/2 mL suspension 0.5 mg (2 mL) inhalation BID 30 01/14/23 02/03/23 Rx for nebulization days #120 mL formoterol fumarate 20 mcg/2 mL 20 mcg (2 mL) inhalation BIDR #120 01/14/23 02/03/23 Rx solution for nebulization mL (Perforomist) ipratropium 0.5 mg-albuterol 3 mg 3 ml NEB Q6H PRN shortness of 01/14/23 02/03/23 Rx (2.5 mg base)/3 mL nebulization breath or wheezing #180 mL soln tiotropium bromide 2.5 1 inh inhalation BID #4 grams 01/14/23 02/03/23 Rx mcg/actuation mist for inhalation (Spiriva Respimat) azithromycin 250 mg tablet 250 mg PO 3XWK 02/03/23 02/03/23 History Allergies Allergy/AdvReac Type Severity Reaction Status Date / Time prednisone AdvReac Intermediate Confusion/PSYCH Verified 02/03/23 15:03 COMPLICATIONS PER [facility] MED LIST Past Med/Surg History Medical History (Updated 02/03/23 @ 14:57 by Ramandeep Andrade PA-C) Acute and chronic respiratory failure with hypercapnia Acute respiratory acidosis Chronic hypercapnic respiratory failure Chronic hypoxemic respiratory failure COPD exacerbation COPD, very severe History of gastroesophageal reflux (GERD) History of hyperlipidemia HTN (hypertension) Hypoxemia Pulmonary emphysema Therapeutic drug monitoring Tobacco abuse counseling Surgical History History of appendectomy History of tonsillectomy History of tubal ligation Family History Father Coronary heart disease Mother Pancreatic cancer Brother Brain tumor Sister Myocardial infarction Social History Smoking Status: Former smoker Cigarettes Per Day: lifelong smoker- now down to 2 per day; Second Hand Exposure: No; Do You Dip or Chew Tobacco: No; Hx Alcohol Use: No Hx Substance Use: No Preferred Language: Iranian Communication Ability: Effective 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 Beliefs That Will Affect Care: None Current Living Situation: Alone Current Living Situation Comment: son lives upstairs Feels Safe at Home: Yes Assistive Devices: Prosthesis and Other Review of Systems A total of 10 systems reviewed and were otherwise negative Respiratory: + cough, + dyspnea and + dyspnea on exertion Physical Exam Vital Signs Vital Signs - 24 hr 02/03/23 13:16 02/03/23 13:31 02/03/23 13:08 Temperature 36.6 C Temperature Source Temporal Artery Scan Pulse Rate 122 H 123 H Pulse Rate [Apical] Pulse Rhythm [Apical] Pulse Strength [Apical] Respiratory Rate 18 Respiratory Effort / Characteristics Non-Labored Respiratory Depth Normal Respiratory Pattern Regular Blood Pressure 162/87 H Blood Pressure [Right Arm] Blood Pressure Mean 112 Blood Pressure Mean [Right Arm] Pulse Oximetry 91 Oxygen Delivery Method Non-rebreather Oxymask Oxygen Flow Rate 10 Sepsis Recent Fever Within 48 Hours No Sepsis New/Unexplained Change in Mental Status N/A Sepsis Action Taken by Nursing No Action Required Oxygen Flow Rate - Titration 8 Pulse Oximetry Post Tiitration 94 02/03/23 13:08 02/03/23 13:08 02/03/23 14:40 Temperature Temperature Source Pulse Rate 91 H Pulse Rate [Apical] 123 H 91 H Pulse Rhythm [Apical] Regular Pulse Strength [Apical] Normal Respiratory Rate 15 18 18 Respiratory Effort / Characteristics Non-Labored Non-Labored Respiratory Depth Normal Normal Respiratory Pattern Regular Blood Pressure Blood Pressure [Right Arm] 162/87 H 162/87 H Blood Pressure Mean Blood Pressure Mean [Right Arm] 112 112 Pulse Oximetry 91 96 96 Oxygen Delivery Method Oxymask Non-rebreather BiPAP Oxygen Flow Rate 8 10 Sepsis Recent Fever Within 48 Hours Sepsis New/Unexplained Change in Mental Status Sepsis Action Taken by Nursing Oxygen Flow Rate - Titration Pulse Oximetry Post Tiitration GENERAL: Patient is awake alert in moderate respiratory distress; cachectic, chronically ill-appearing EYES: The conjunctivae are clear. The pupils are round and reactive. EARS, NOSE, MOUTH AND THROAT: The nose is without any evidence of any deformity. Mucous membranes are moist. Tongue is midline. NECK: The neck is nontender and supple. RESPIRATORY: Respiratory distress, on a nonrebreather however can pause and speak in full sentences, initially tripoding; decreased breath sounds bilaterally CARDIOVASCULAR: Tachycardic noted there no murmurs rubs or gallops normal S1 normal S2. GASTROINTESTINAL: The abdomen is soft. Abdomen is nontender. BACK: No midline tenderness or or step-off noted range of motion in flexion extension as well as rotation no signs of muscle spasm noted MUSCULOSKELETAL/EXTREMITIES: There is no evidence of gross deformity full range of motion is noted in the hips and shoulders. SKIN: There is no obvious evidence of any rash. There are no petechiae, pallor or cyanosis noted. NEUROLOGIC: Patient is awake alert and oriented x3 strength is symmetric Course Reevaluation(s) Reevaluation #1: Patient is much improved on BiPAP. Patient did receive IV Solu-Medrol. Time: 14:39 Consultations Consultation #1: Case was discussed with the [facility] hospitalist, the patient will be admitted to Dr. Ledesma Time: 14:39 Administered Medications Discontinued Medications Magnesium Sulfate/Dextrose (Magnesium Sulfate / D5w) 1 gm in 100 mls @ 100 mls/hr IV NOW STA Stop: 02/03/23 14:21 Last Admin: 02/03/23 13:44 Dose: 100 mls/hr Documented By: SAL Methylprednisolone (Methylprednisolone 125 Mg/2 Ml Vial) 125 mg IV NOW STA Stop: 02/03/23 13:21 Last Admin: 02/03/23 13:42 Dose: 125 mg Documented By: SAL Critical Care Time Critical Care Time: Yes Total Critical Care Time: 45 I have personally spent greater than 45 minutes of critical care time in the direct management of this patient. This includes bedside care, interpretation of diagnostic studies, and testing, discussion with consultants, patient, and family members, and other required patient management activities. These minutes are in excess of all separately billable procedures. Medical Decision Making Medical Records Attestation: I reviewed the patient's medical records. Home Medications Current Medication List: was personally reviewed by me Laboratory Data Attestation: I reviewed the patient's lab results. Lab results interpreted by me , hypercarbic 02/03/23 13:28 02/03/23 13:28 Lab Results 02/03/23 02/03/23 02/03/23 Range/Units 13:28 13:28 13:28 WBC 9.23 (4.8-10.8) K/ul RBC 3.58 L (4.20-5.40) M/uL Hgb 10.9 L (12.0-16.0) g/dl Hct 36.5 L (37.0-47.0) % MCV 102.0 H (80.0-100.0) fL MCH 30.4 (25.0-34.0) pg MCHC 29.9 L (32.0-36.0) g/dL RDW Std Deviation 42.5 (36.4-46.3) fL RDW Coeff of Patricia 11.3 L (11.5-14.5) % Plt Count 168 (130-400) K/uL MPV 8.8 L (9.4-12.4) fL Immature Gran % (Auto) 0.4 % Neut % (Auto) 84.8 % Lymph % (Auto) 7.5 % Stewart % (Auto) 6.2 % Eos % (Auto) 0.9 % Baso % (Auto) 0.2 % Neut # (Auto) 7.83 H (1.40-6.50) K/uL Lymph # (Auto) 0.69 L (1.2-3.4) K/uL Stewart # (Auto) 0.57 (0.11-0.59) K/uL Eos # (Auto) 0.08 (0-0.50) K/uL Baso # (Auto) 0.02 (0-0.2) K/uL Immature Gran # (Auto) 0.04 (0.01-0.20) K/uL PT 10.2 (9.0-12.0) Seconds INR 0.9 (0.9-1.1) APTT 23.4 (21.0-31.0) Seconds PTT Ratio 0.8 VBG pH (7.36-7.41) VBG pCO2 (38-50) mmHg VBG pO2 mmHg VBG HCO3 mmol/L VBG O2 Saturation % VBG Base Excess mEq/L Sodium 137 (136-145) mmol/L Potassium 4.7 (3.5-5.1) mmol/L Chloride 90 L (98-107) mmol/L Carbon Dioxide > 45 H* (21-32) mmol/L Anion Gap TNP BUN 13 (6-23) mg/dl Creatinine 0.44 L (0.6-1.2) mg/dl Est Cr Clr Drug Dosing 72.9 ml/min Est GFR ( Amer) 121.1 ml/min Est GFR (Non-Af Amer) 104.5 ml/min BUN/Creatinine Ratio 29.5 H (10-20) Glucose 136 H (70-99(Fasting)) mg/dl Calcium 9.5 (8.6-10.3) mg/dl Total Bilirubin 0.3 (0.2-1.0) mg/dl AST 28 (13-39) U/L ALT 24 (7-52) U/L Alkaline Phosphatase 88 (34-104) U/L Troponin I High Sens 19.4 H (0-14) pg/ml B-Natriuretic Peptide (0-100) pg/ml Total Protein 6.7 (6.0-8.3) gm/dl Albumin 4.1 (3.4-5.0) gm/dl Globulin 2.6 (2.5-4.0) gm/dl Albumin/Globulin Ratio 1.6 (0.9-2) SARS-CoV-2, RNA, NAAT (NEGATIVE) 02/03/23 02/03/23 02/03/23 Range/Units 13:28 13:28 13:50 WBC (4.8-10.8) K/ul RBC (4.20-5.40) M/uL Hgb (12.0-16.0) g/dl Hct (37.0-47.0) % MCV (80.0-100.0) fL MCH (25.0-34.0) pg MCHC (32.0-36.0) g/dL RDW Std Deviation (36.4-46.3) fL RDW Coeff of Patricia (11.5-14.5) % Plt Count (130-400) K/uL MPV (9.4-12.4) fL Immature Gran % (Auto) % Neut % (Auto) % Lymph % (Auto) % Stewart % (Auto) % Eos % (Auto) % Baso % (Auto) % Neut # (Auto) (1.40-6.50) K/uL Lymph # (Auto) (1.2-3.4) K/uL Stewart # (Auto) (0.11-0.59) K/uL Eos # (Auto) (0-0.50) K/uL Baso # (Auto) (0-0.2) K/uL Immature Gran # (Auto) (0.01-0.20) K/uL PT (9.0-12.0) Seconds INR (0.9-1.1) APTT (21.0-31.0) Seconds PTT Ratio VBG pH 7.31 L (7.36-7.41) VBG pCO2 99 H (38-50) mmHg VBG pO2 59 mmHg VBG HCO3 50 mmol/L VBG O2 Saturation 89.8 % VBG Base Excess 18.3 mEq/L Sodium (136-145) mmol/L Potassium (3.5-5.1) mmol/L Chloride (98-107) mmol/L Carbon Dioxide (21-32) mmol/L Anion Gap BUN (6-23) mg/dl Creatinine (0.6-1.2) mg/dl Est Cr Clr Drug Dosing ml/min Est GFR ( Amer) ml/min Est GFR (Non-Af Amer) ml/min BUN/Creatinine Ratio (10-20) Glucose (70-99(Fasting)) mg/dl Calcium (8.6-10.3) mg/dl Total Bilirubin (0.2-1.0) mg/dl AST (13-39) U/L ALT (7-52) U/L Alkaline Phosphatase (34-104) U/L Troponin I High Sens (0-14) pg/ml B-Natriuretic Peptide 33 (0-100) pg/ml Total Protein (6.0-8.3) gm/dl Albumin (3.4-5.0) gm/dl Globulin (2.5-4.0) gm/dl Albumin/Globulin Ratio (0.9-2) SARS-CoV-2, RNA, NAAT NEGATIVE (NEGATIVE) Imaging Data Attestation: I personally reviewed and interpreted this imaging study as follows: My Impression: Chest x-ray interpreted by me negative for infiltrate, COPD changes, no obvious pneumothorax Radiologist's Impression: Chest X-Ray 02/03/23 13:08 XR chest 1V portable HISTORY: 67 years-old Female Chest pain, nonspecific COMPARISON: 01/10/2023 TECHNIQUE: AP view of the chest FINDINGS: Cardiomediastinal and hilar silhouettes are unchanged. Severe emphysema. No pneumothorax, pleural effusion, airspace consolidation or pulmonary edema. Nipple shadow projects over the left lung base. Unchanged right apical nodular density, likely pleural parenchymal scarring. Cholecystectomy. Degenerative changes of the shoulders and spine. 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 IMPRESSION: Emphysema without acute process. ACT 112: Negative or not required by law. The above report was generated using voice recognition software. It may contain grammatical, syntax or spelling errors. Electronically signed by: Wilmer Landrum M.D. 02/03/2023 1:57 PM ECG Data Attestation: I personally reviewed and interpreted this ECG as follows: Additional Comments: EKG interpreted by me sinus tachycardia rate of 123, normal intervals normal axis no obvious ST segment elevation or depression Telemetry was ordered by me, interpreted as sinus tachycardia rate of 120 MDM Narrative Medical decision making differential diagnosis COPD exacerbation, pneumonia, CHF, hypercarbic respiratory failure, anemia Plan is to check labs EKG chest x-ray, give IV Solu-Medrol Internal medical records were reviewed in the discharge summary of January 2023 was reviewed by me Patient was started on BiPAP, patient was given IV Solu-Medrol, patient is improved after BiPAP. I did review Dr. Jasso's notes regarding the most recent admission and the patient was in fact placed on BiPAP. Patient will be admitted for hypercarbic respiratory failure Impression & Plan Chronic hypercapnic respiratory failure, COPD (chronic obstructive pulmonary disease) Discharge Plan Visit Data Chief Complaint: Shortness of Breath/Dyspnea Stated Complaint: SOB ED Provider: Gregor Cartwright Discharge Problem: Chronic hypercapnic respiratory failure, COPD (chronic obstructive pulmonary disease) Patient Disposition: Admitted As Inpatient Forms Stand Alone Forms: My [facility] Prescriptions Prescriptions: No Action (DME) Portable Oxygen Misc See Rx Instructions .Route Qty: 1 0RF Rx Instructions: Oxygen concentrator with portability 3-4LPM via n/c with exertion to maintain O2 sats 88-93% with oxygen conserving device. DEONDRE:99 aspirin [Adult Low Dose Aspirin] 81 mg tablet,delayed release (DR/EC) 81 mg PO QAM atorvastatin 10 mg tablet 10 mg PO HS trazodone 50 mg tablet 75 mg PO HS Rx Instructions: MAY INCREASE TO 2 TABS IN NEEDED FOR SLEEP lisinopril 5 mg tablet 5 mg PO QAM loratadine 10 mg capsule 10 mg PO DAILY PRN (Reason: allergies) meloxicam 15 mg tablet 15 mg PO QAM albuterol sulfate [Ventolin HFA] 90 mcg/actuation HFA aerosol inhaler 2 puffs INH Q4H PRN (Reason: Shortness Of Breath) azithromycin 250 mg tablet 250 mg PO 3XWK Rx Instructions: I tablet daily On Wednesday, Wednesday and Wednesday only multivitamin Tablet 1 tab PO DAILY vitamin B complex Capsule 1 cap PO DAILY esomeprazole magnesium 20 mg Capsule,Delayed Release(Dr/Ec) 20 mg PO DAILYBB tramadol 50 mg tablet 50 mg PO Q6H PRN (Reason: Pain, Moderate) zinc sulfate 50 mg zinc (220 mg) Tablet 50 mg PO DAILY guaifenesin [Mucinex] 600 mg Tablet Extended Release 12hr 600 mg PO BID budesonide 0.5 mg/2 mL suspension for nebulization 0.5 mg inhalation BID 30 Days Qty: 120 1RF formoterol fumarate [Perforomist] 20 mcg/2 mL Solution For Nebulization 20 mcg inhalation BIDR Qty: 120 1RF ipratropium-albuterol 0.5 mg-3 mg(2.5 mg base)/3 mL Solution For Nebulization 3 ml NEB Q6H PRN (Reason: shortness of breath or wheezing) Qty: 180 1RF Spiriva Respimat 2.5 mcg/actuation mist 1 inh inhalation BID Qty: 4 1RF Referrals Referrals: Damir De La Cruz MD [Primary Care Provider] -
--- NOTE | 2023-02-03 13:58 | XRay Report ---
XR chest 1V portable HISTORY: 67 years-old Female Chest pain, nonspecific COMPARISON: 01/10/2023 TECHNIQUE: AP view of the chest FINDINGS: Cardiomediastinal and hilar silhouettes are unchanged. Severe emphysema. No pneumothorax, pleural eff usion, airspace consolidation or pulmonary edema. Nipple shadow projects over the left lung base. Unc hanged right apical nodular density, likely pleural parenchymal scarring. Cholecystectomy. Degenerati ve changes of the shoulders and spine. 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 IMPRESSION: Emphysema without acute process. ACT 112: Negative or not required by law. The above report was generated using voice recognition software. It may contain grammatical, syntax o r spelling errors. Electronically signed by: Wilmer Landrum M.D. 02/03/2023 1:57 PM
[2023-02-03 14:07] LABS: Alanine Aminotransferase 24 U/L (7-52); Albumin Globulin Ratio 1.6 (0.9-2); Albumin Level 4.1 gm/dl (3.4-5.0); Alkaline Phosphatase 88 U/L (34-104); Aspartate Aminotransferase 28 U/L (13-39); BUN Creatinine Ratio 29.5 (10-20); Bilirubin,Total 0.3 mg/dl (0.2-1.0); Blood Urea Nitrogen 13 mg/dl (6-23); Calcium 9.5 mg/dl (8.6-10.3); Carbon Dioxide > 45 mmol/L (21-32); Chloride 90 mmol/L (98-107); Creatinine Clr Calc Pharmacy 72.9 ml/min; Est GFR (African American) 121.1 ml/min; Est GFR (Non-African American) 104.5 ml/min; Globulin 2.6 gm/dl (2.5-4.0); Glucose 136 mg/dl (70-99(Fasting)); Potassium 4.7 mmol/L (3.5-5.1); Sodium 137 mmol/L (136-145); Total Protein 6.7 gm/dl (6.0-8.3)
[2023-02-03 14:10] LABS: Troponin I High Sensitivity 19.4 pg/ml (0-14)
[2023-02-03 14:13] LABS: INR 0.9 (0.9-1.1); Partial Thromboplastin Ratio 0.8; Partial Thromboplastin Time 23.4 Seconds (21.0-31.0); Prothrombin Time 10.2 Seconds (9.0-12.0)
--- NOTE | 2023-02-03 14:46 | History & Physical Report ---
Date of Service February 03, 2023 Assessment & Plan (1) Acute exacerbation of chronic obstructive pulmonary disease: (2) Acute and chronic respiratory failure with hypercapnia: (3) Shortness of breath: (4) Protein malnutrition: (5) DM II (diabetes mellitus, type II), controlled: (6) Pulmonary emphysema: Plan: - Admit to med tele - Pt is found to be in acute hypercarbic respiratory failure with a pH of 7.3 and a PCO2 of 99. Currently on bipap. Check ABG q4H - Pulm consulted follows with Dr. Thomas in the outpatient setting - Given 125 mg Solumedrol in the ER, cont prednisone 40 mg daily starting tomorrow - Recent discharge from the hospital on 01/14 with the following inhaler regimen: -Budesonide 0.5 mg nebulized twice daily -Perforomist 20 mcg nebulized twice daily -Spiriva 1 puff twice daily -Azithromycin 250 mg orally every Wednesday and Wednesday -DuoNebs, 3 mL as needed up to 4 times a day - On AVAPs nightly - Pt is currently tachycardic with HR in the 90s - ekg reviewed personally without significant changes, no chest pain- monitor on tele - Peripheral neuropathy complaints - likely from DM, A1c with am labs - R ear is full of dark wax, cannot visualize TM, irrigate and use debrox drops- likely contributing to the pt ear fullness/difficulty hearing on the R side. Left side TM is pearly muhammad. - Pt is cachectic, consult medical health researcher, ordered boost BID, albumin level of 4.1 - Consult palliative care - discussion held at bedside regarding transition to hospice which the patient is leaning towards. They had previous discussion with palliative during her last hospital stay. Her step daughter at bedside, reports that she would like the patients son, to come to the hospital tomorrow. They are interested in a palliative care family meeting regarding going home with hospice. DVT ppx: - teds, scds, consider chemical ppx per day team tomorrow CODE: DNR/DNI Dispo: From home, likely to remain in the hospital x 1-2 days, CM to assist with possible transition to hospice A total of 75 minutes were spent with greater than 50% of that time face to face with the patient, personally reviewing all current laboratories, imaging studies, past medication reconciliation, outpatient chart review, and discussion with specialists to collaborate care for the patient with attending. Please see attending documentation for corrections and/or additions. Admission and Anticipated Discharge Date Admission Date: I have seen and examined the patient and have discussed the case with the provider above. I agree with the assessment and plan as stated with the following exceptions. 67 yo F with end stage COPD presents with worsening SOB for the last two weeks after recent hospital discharge for a COPD exacerbation. She is tachypneic and initially was comfortable on 10/5 BIPAP but quickly became uncomfortable, sat up in a tripod position and said please help, I cant breathe. Respiratory came and adjusted her settings to 12/6 at 60% and she was feeling better with her oxygen levels coming up from the mid-70s to low 90s. She did briefly tell me prior to this episode that she was a confirmed DNR and that she was considering hospice. ROS otherwise reveals a fullness in her ears and new onset tingling in her lower extremities bilaterally. Denies chest pain. On exam she is cachectic, and in mild respiratory distress. CV: tachycardic, no murmur, regular rhythm. Pulm: tachypnea, no wheezing, diminished breath sounds throughout. Labs/imaging/EKG reviewed. Outpatient record reviewed. CBC reveals no WBC count and H/H low but at her baseline. (10.9/36). Chem panel at baseline with metabolic alkalosis (bicarb>45). Renal function is at baseline. Trop mildly elevated at 19.4. BNP 33. CXR clear. 1. Acute on chronic hypercarbic respiratory failure 2/2 COPD with exacerbation 2. Severe protein calorie malnutrition 3. DMII with polyneuropathy Recently admitted with return of symptoms over the past two weeks. Currently on BIPAP and improved but is now requiring higher settings than she had in the past. Solumedrol given in the ER, and will cont with Prednisone daily and azit hromycin daily. She is reporting worsening neuropathy symptoms and has a h/o this. Consider gabapentin trial. Overall her respiratory status is tenuous and she is a confirmed DNR with a poor prognosis overall. Hospice is being considered. Cont BIPAP therapy and oxygen supplementation with nebulized bronchodilators, steroids, abx. Appreciate pulm recommendations. DO Baltazar History of Present Illness Chief Complaint: Shortness of breath Primary Care Provider: Damir De La Cruz MD This is a 67-year-old female with PMHx of DM II, diabetic polyneuropathy, Severe COPD, chronic rhinitis, hypertension, reflux esophagitis, depression, tobacco abuse presents with respiratory distress and COPD exacerbation. She was recently hospitalized for similar complaints; 01/10/2023 to 01/14/2023 where she was treated for acute on chronic hypercarbic respiratory failure as well as a COPD exacerbation with known history of severe emphysema. At baseline the patient wears 6 L of O2 at all times, but in the past few days she has turned it up to 10 L because of feeling increasingly short of breath. She presents to the ER with worsening shortness of breath x1 day. She is coughing sometimes yellow sputum production, denies any hemoptysis. She denies any fevers but feels chilled today. She feels a fullness in her right ear and feels slightly dizzy. She also mentions having increased numbness and tingling down into both of her legs, she has felt weaker in the past few days, having difficulty walking on her own, and stepdaughter who is present at bedside has been assisting her with ADLs. She denies any known, sick contacts, no changes in her regimen with inhalers. She has still has been smoking 1 to 3 cigarettes/day, specifically after she eats. She is drinking 1 protein shake per day. Denies any abdominal complaints but notes that she continues to lose weight unintentionally, and is weighing 75 pounds today on admission. Today she is in acute hypercarbic respiratory failure with a pH of 7.3 and a PCO2 of 99 and was placed on Bipap in the ER. Allergies Allergy/AdvReac Type Severity Reaction Status Date / Time prednisone AdvReac Intermediate Confusion/PSYCH Verified 02/03/23 15:03 COMPLICATIONS PER [facility] MED LIST Home Medications Medication Instructions Recorded Confirmed Type aspirin 81 mg tablet,delayed 81 mg PO QAM 05/25/19 02/03/23 History release (Adult Low Dose Aspirin) atorvastatin 10 mg tablet 10 mg PO HS 05/25/19 02/03/23 History lisinopril 5 mg tablet 5 mg PO QAM 05/25/19 02/03/23 History loratadine 10 mg capsule 10 mg PO DAILY PRN allergies 05/25/19 02/03/23 History trazodone 50 mg tablet 75 mg PO HS 05/25/19 02/03/23 History albuterol sulfate 90 mcg/actuation 2 puffs inhalation Q4H PRN 05/26/19 02/03/23 History aerosol inhaler (Ventolin HFA) Shortness Of Breath meloxicam 15 mg tablet 15 mg PO QAM 05/26/19 02/03/23 History esomeprazole magnesium 20 mg 20 mg PO DAILYBB 11/13/21 02/03/23 History capsule,delayed release multivitamin 1 tab PO DAILY 11/13/21 02/03/23 History tramadol 50 mg tablet 50 mg PO Q6H PRN Pain, Moderate 11/13/21 02/03/23 History vitamin B complex 1 cap PO DAILY 11/13/21 02/03/23 History Portable Oxygen #1 ea 07/17/22 02/03/23 Rx guaifenesin 600 mg tablet, 600 mg PO BID 01/10/23 02/03/23 History extended release 12 hr (Mucinex) zinc sulfate 50 mg zinc (220 mg) 50 mg PO DAILY 01/10/23 02/03/23 History tablet budesonide 0.5 mg/2 mL suspension 0.5 mg (2 mL) inhalation BID 30 01/14/23 02/03/23 Rx for nebulization days #120 mL formoterol fumarate 20 mcg/2 mL 20 mcg (2 mL) inhalation BIDR #120 01/14/23 02/03/23 Rx solution for nebulization mL (Perforomist) ipratropium 0.5 mg-albuterol 3 mg 3 ml NEB Q6H PRN shortness of 01/14/23 02/03/23 Rx (2.5 mg base)/3 mL nebulization breath or wheezing #180 mL soln tiotropium bromide 2.5 1 inh inhalation BID #4 grams 01/14/23 02/03/23 Rx mcg/actuation mist for inhalation (Spiriva Respimat) azithromycin 250 mg tablet 250 mg PO 3XWK 02/03/23 02/03/23 History Past Med/Surg History Medical History (Updated 02/03/23 @ 16:57 by Ramnadeep Andrade PA-C) Acute and chronic respiratory failure with hypercapnia Acute respiratory acidosis Chronic hypercapnic respiratory failure Chronic hypoxemic respiratory failure COPD exacerbation COPD, very severe DM II (diabetes mellitus, type II), controlled History of gastroesophageal reflux (GERD) History of hyperlipidemia HTN (hypertension) Hypoxemia Pulmonary emphysema Therapeutic drug monitoring Tobacco abuse counseling Surgical History History of appendectomy History of tonsillectomy History of tubal ligation Family History Father Coronary heart disease Mother Pancreatic cancer Brother Brain tumor Sister Myocardial infarction Social History Smoking Status: Former smoker Cigarettes Per Day: lifelong smoker- now down to 2 per day; Second Hand Exposure: No; Do You Dip or Chew Tobacco: No; Hx Alcohol Use: No Hx Substance Use: No Preferred Language: Cambodian Communication Ability: Effective Applications Support Specialist Required: No Beliefs That Will Affect Care: None Current Living Situation: Alone Current Living Situation Comment: son lives upstairs Feels Safe at Home: Yes Assistive Devices: Prosthesis and Other Review of Systems Review of Systems: Constitutional: No fever, sweats , +chills Eyes: No diplopia, no worsening or blurred vision ENT: normal hearing, no trouble swallowing Respiratory: + cough, + yellow sputum,+ dyspnea at rest and on exertion Cardiovascular: No chest pain, tightness or palpitations Abdomen: No pain, nausea, vomiting, diarrhea or constipation Musculoskeletal: No joint pain, calf pain, swelling Neurologic: + generalized weakness, + bilateral lower leg numbness/tingling, some new balance problems Psychiatric: No anxiety or depression Skin: No rash or itch Physical Exam Physical Exam: General: awake, alert, no apparent distress, cachectic, appears older than stated age Head: Normocephalic, atraumatic ENT: PERRL, EOMI, Left ear with dark wax inside on otoscope eval, TM not able to be visualized, Right ear with pearly muhammad TM, no erythema, no fluid level. On bipap so pharynx is not assessed Chest: Diminished breath sounds throughout, on bipap, barrel chested Cardiac: Sinus tach with HR in the 90s, no murmur, no JVD, normal peripheral pu lses, good capillary refill Abdominal: NABS x 4 quadrants, soft, nondistended, nontender to palpation, no rebound or guarding Extremities: Normal inspection, no peripheral edema or erythema, calfs nontender to palpation Psych: Normal mood and affect Neuro: AAO x 3, strength intact bilaterally and rated 5/5, no motor deficits, speech is clear, no peripheral sensory deficits, sensation to light and sharp touch intact in bilateral lower legs Results & Data Results & Data Vital Signs (Past 12 Hours) Vital Signs Temp Pulse Pulse Resp BP BP Pulse Ox 02/03/23 14:40 91 H 18 162/87 H 96 02/03/23 13:08 91 H 18 96 02/03/23 13:08 123 H 15 162/87 H 91 02/03/23 13:08 02/03/23 13:31 36.6 C 123 H 18 162/87 H 91 02/03/23 13:16 122 H O2 Del Method O2 Flow Rate 02/03/23 14:40 BiPAP 02/03/23 13:08 Non-rebreather 10 02/03/23 13:08 Oxymask 8 02/03/23 13:08 Oxymask 02/03/23 13:31 Non-rebreather 10 02/03/23 13:16 Laboratory Results 02/03/23 02/03/23 02/03/23 13:50 13:28 13:28 WBC RBC Hgb Hct MCV MCH MCHC RDW Std Deviation RDW Coeff of Patricia Plt Count MPV Immature Gran % (Auto) Neut % (Auto) Lymph % (Auto) [place] % (Auto) Eos % (Auto) Baso % (Auto) Neut # (Auto) Lymph # (Auto) [place] # (Auto) Eos # (Auto) Baso # (Auto) Immature Gran # (Auto) PT INR APTT PTT Ratio VBG pH 7.31 L VBG pCO2 99 H VBG pO2 59 VBG HCO3 50 VBG O2 Saturation 89.8 VBG Base Excess 18.3 Sodium Potassium Chloride Carbon Dioxide Anion Gap BUN Creatinine Est Cr Clr Drug Dosing Est GFR ( Amer) Est GFR (Non-Af Amer) BUN/Creatinine Ratio Glucose Calcium Total Bilirubin AST ALT Alkaline Phosphatase Troponin I High Sens B-Natriuretic Peptide 33 Total Protein Albumin Globulin Albumin/Globulin Ratio SARS-CoV-2, RNA, NAAT NEGATIVE 02/03/23 02/03/23 02/03/23 13:28 13:28 13:28 WBC 9.23 RBC 3.58 L Hgb 10.9 L Hct 36.5 L MCV 102.0 H MCH 30.4 MCHC 29.9 L RDW Std Deviation 42.5 RDW Coeff of Patricia 11.3 L Plt Count 168 MPV 8.8 L Immature Gran % (Auto) 0.4 Neut % (Auto) 84.8 Lymph % (Auto) 7.5 [place] % (Auto) 6.2 Eos % (Auto) 0.9 Baso % (Auto) 0.2 Neut # (Auto) 7.83 H Lymph # (Auto) 0.69 L [place] # (Auto) 0.57 Eos # (Auto) 0.08 Baso # (Auto) 0.02 Immature Gran # (Auto) 0.04 PT 10.2 INR 0.9 APTT 23.4 PTT Ratio 0.8 VBG pH VBG pCO2 VBG pO2 VBG HCO3 VBG O2 Saturation VBG Base Excess Sodium 137 Potassium 4.7 Chloride 90 L Carbon Dioxide > 45 H* Anion Gap TNP BUN 13 Creatinine 0.44 L Est Cr Clr Drug Dosing 72.9 Est GFR ( Amer) 121.1 Est GFR (Non-Af Amer) 104.5 BUN/Creatinine Ratio 29.5 H Glucose 136 H Calcium 9.5 Total Bilirubin 0.3 AST 28 ALT 24 Alkaline Phosphatase 88 Troponin I High Sens 19.4 H B-Natriuretic Peptide Total Protein 6.7 Albumin 4.1 Globulin 2.6 Albumin/Globulin Ratio 1.6 SARS-CoV-2, RNA, NAAT Diagnostic Findings Chest X-Ray 02/03/23 13:08 XR chest 1V portable HISTORY: 67 years-old Female Chest pain, nonspecific COMPARISON: 01/10/2023 TECHNIQUE: AP view of the chest FINDINGS: Cardiomediastinal and hilar silhouettes are unchanged. Severe emphysema. No pneumothorax, pleural effusion, airspace consolidation or pulmonary edema. Nipple shadow projects over the left lung base. Unchanged right apical nodular density, likely pleural parenchymal scarring. Cholecystectomy. Degenerative changes of the shoulders and spine. 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 IMPRESSION: Emphysema without acute process. ACT 112: Negative or not required by law. The above report was generated using voice recognition software. It may contain grammatical, syntax or spelling errors. Electronically signed by: Wilmer Landrum M.D. 02/03/2023 1:57 PM ECG Additional Comments: 03-FEB-2023 13:16:59 [facility]-EDSTAT ROUTINE RETRIEVAL Sinus tachycardia Otherwise normal ECG When compared with ECG of 12-JAN-2023 13:46, No significant change was found 25mm/s10mm/[id number] 243CID: 24Unconfirmed Vent. rate 123 BPM TX interval 150 ms QRS duration 70 ms QT/QTc 284/406 ms Code Status & VTE Plan Code Status DNR/DNI - discussed with the pt at bedside
[2023-02-03] MEDS ORDERED: ALBUT/IPRATROP 3MG/0.5MG NEB 3 ML VIAL NEB PRN (17:48)
[2023-02-03] MEDS ORDERED: ACETAMINOPHEN 325 MG TAB PO PRN (17:48)
[2023-02-03] MEDS ORDERED: ALBUTEROL HFA 8 GM INHALER INH PRN (17:48)
[2023-02-03] MEDS ORDERED: ONDANSETRON INJ 2 MG/ML 2 ML VIAL IV PRN (17:48)
[2023-02-03 18:00] LABS: Transferrin 251 mg/dl (200-360)
[2023-02-03] MEDS ORDERED: LORATADINE 10 MG TAB PO PRN (18:16)
[2023-02-03 18:20] LABS: Folate (Folic Acid),Ser orPlas > 22.30 ng/ml (>5.38)
[2023-02-03 18:21] LABS: Vitamin B12 703 pg/ml (180-914)
[2023-02-03 18:24] LABS: Base Excess ABG 19.3 mEq/L (-9-1.8); HCO3 ABG 48 mmol/L (19-24); Oxygen Saturation ABG 99.8 % (90-95); PCO2 ABG 72 mmHg (35-46); PO2 ABG 126 mmHg (80-95); pH ABG 7.43 (7.35-7.45)
[2023-02-03 18:29] LABS: Allen Test Pos (Pos)
[2023-02-03] MEDS: CARBAMIDE PEROXIDE 6.5% 15 ML BTL OTR SCH ×2 (18:43→21:57)
[2023-02-03] MEDS: AZITHROMYCIN 500 MG in DEXTROSE 5% 250 ML IV SCH (18:43)
[2023-02-03] MEDS: FORMOTEROL 20 MCG/2 ML VIAL INH SCH (19:30)
[2023-02-03] MEDS: BUDESONIDE 0.5 MG/2 ML VIAL (PULMICORT) INH SCH (19:31)
[2023-02-03] MEDS: traZODone HCL 50 MG TAB PO SCH (21:54)
[2023-02-03] MEDS: guaiFENesin 600 MG TABCR PO SCH (21:55)
[2023-02-03] MEDS: ATORVASTATIN 10 MG TAB PO SCH (21:56)
[2023-02-04] MEDS: PANTOprazole 40 MG TAB PO SCH (05:50)
[2023-02-04] MEDS: BUDESONIDE 0.5 MG/2 ML VIAL (PULMICORT) INH SCH ×2 (07:24→19:44)
[2023-02-04] MEDS: FORMOTEROL 20 MCG/2 ML VIAL INH SCH ×2 (07:24→19:44)
[2023-02-04 07:42] LABS: Hematocrit (blood only) 33.1 % (37.0-47.0); Hemoglobin 10.1 g/dl (12.0-16.0); Mean Corpuscular Hemoglobin 30.2 pg (25.0-34.0); Mean Corpuscular Hgb Conc 30.5 g/dL (32.0-36.0); Mean Corpuscular Volume 99.1 fL (80.0-100.0); Mean Platelet Volume 9.1 fL (9.4-12.4); Platelet Count 175 K/uL (130-400); RDW Coefficient of Variation 11.5 % (11.5-14.5); RDW Standard Deviation 41.8 fL (36.4-46.3); Red Blood Count 3.34 M/uL (4.20-5.40); White Blood Count 6.91 K/ul (4.8-10.8)
[2023-02-04] MEDS: lisinopril 5 MG TAB PO SCH (08:05)
[2023-02-04] MEDS: ASPIRIN 81 MG ECTAB PO SCH (08:06)
[2023-02-04] MEDS: MELOXICAM 7.5 MG TAB PO SCH (08:06)
[2023-02-04 08:09] LABS: BUN Creatinine Ratio 37.8 (10-20); Calcium 9.5 mg/dl (8.6-10.3); Creatinine Clr Calc Pharmacy 71.2 ml/min; Est GFR (African American) 120.2 ml/min; Est GFR (Non-African American) 103.7 ml/min; Magnesium 2.2 mg/dl (1.7-2.4); Potassium 4.5 mmol/L (3.5-5.1)
[2023-02-04] MEDS: MULTIVITAMIN TAB PO SCH (08:09)
[2023-02-04] MEDS: guaiFENesin 600 MG TABCR PO SCH ×2 (08:09→20:57)
[2023-02-04] MEDS: CARBAMIDE PEROXIDE 6.5% 15 ML BTL OTR SCH ×2 (08:09→20:56)
[2023-02-04] MEDS: traMADol HCL 50 MG TABLET PO PRN ×3 (08:11→20:55)
[2023-02-04] MEDS ORDERED: UMECLIDINIUM BROMIDE 62.5MCG/BLISTER 7 PUFFS/INHALER INH SCH (09:00)
[2023-02-04] MEDS ORDERED: predniSONE 20 MG TAB PO SCH (09:00)
--- NOTE | 2023-02-04 10:45 | Palliative Care Consultation ---
Date of Consultation February 04, 2023 Assessment & Plan (1) Dyspnea: Could consider low dose morphine rather than tramadol prn for her pain which would also help to relieve air hunger. She is not always fully compliant with bipap at home but her daughter in law is hopeful that she would be more compliant in facility with encouragement. (2) Palliative care encounter: I spoke with Iris, her son and daughter in law, Agustina at bedside. Agustina is her POA. Iris has a clear understanding that she is in the end stage of her illness. She tells me that there are hills and valleys and one of these days, she won't be able to get back up the hill. She is not afraid of dying and has considered hospice care. She is working with case management of either SNF or assisted living after discharge. We discussed SNF skilled benefit which would cover her stay at SNF while she is on skilled care but would not allow hospice care but she could transition to hospice care when skilled benefit completed. She is adamant that she does not want to come back to the hospital and does not want any interventions to prolong her life at this point. We reviewed her living will which is consistent with her current thoughts. POLST form completed for DNR/DNI, comfort measures, no antibiotics, no artificial feeding or hydration per her wishes. We talked about role of hospice to provide support and symptom relief so that she can be comfortable until her but hospice would not prolong or hasten her dying time. Discussed with RN, case management and Dr. Wetzel. History of Present Illness Reason for Consultation: goals of care Requesting Physician: VIRGILIO Navarro Attending Physician: Isaac Mcduffie MD History of Present Illness 67 yo lady with end stage COPD admitted with acute on chronic hypercapnic respiratory failure. Her FEV1 from prior PFTs in 2019 was 21% at that time. She has been on Trilogy at home. On admission, her pCO2 was 72. She was seen by palliative care during a previous admission in January. At that time, she was quite matias about her dying time and we did discuss hospice. She declined case management offer to set up hospice for her prior to discharge and indicated that she would do that at home. She complains of feeling tired and has labored breathing at rest. She does not complain of pain currently. Iris reports that she is not able to manage at home alone at this time. Her son is concerned about the heat and humidity impacting her breathing. Allergies Allergy/AdvReac Type Severity Reaction Status Date / Time prednisone AdvReac Intermediate Confusion/PSYCH Verified 02/03/23 15:03 COMPLICATIONS PER [facility] MED LIST Home Medications Medication Instructions Recorded Confirmed Type aspirin 81 mg tablet,delayed 81 mg PO QAM 05/25/19 02/03/23 History release (Adult Low Dose Aspirin) atorvastatin 10 mg tablet 10 mg PO HS 05/25/19 02/03/23 History lisinopril 5 mg tablet 5 mg PO QAM 05/25/19 02/03/23 History loratadine 10 mg capsule 10 mg PO DAILY PRN allergies 05/25/19 02/03/23 History trazodone 50 mg tablet 75 mg PO HS 05/25/19 02/03/23 History albuterol sulfate 90 mcg/actuation 2 puffs inhalation Q4H PRN 05/26/19 02/03/23 History aerosol inhaler (Ventolin HFA) Shortness Of Breath meloxicam 15 mg tablet 15 mg PO QAM 05/26/19 02/03/23 History esomeprazole magnesium 20 mg 20 mg PO DAILYBB 11/13/21 02/03/23 History capsule,delayed release multivitamin 1 tab PO DAILY 11/13/21 02/03/23 History tramadol 50 mg tablet 50 mg PO Q6H PRN Pain, Moderate 11/13/21 02/03/23 History vitamin B complex 1 cap PO DAILY 11/13/21 02/03/23 History Portable Oxygen #1 ea 07/17/22 02/03/23 Rx guaifenesin 600 mg tablet, 600 mg PO BID 01/10/23 02/03/23 History extended release 12 hr (Mucinex) zinc sulfate 50 mg zinc (220 mg) 50 mg PO DAILY 01/10/23 02/03/23 History tablet budesonide 0.5 mg/2 mL suspension 0.5 mg (2 mL) inhalation BID 30 01/14/23 02/03/23 Rx for nebulization days #120 mL formoterol fumarate 20 mcg/2 mL 20 mcg (2 mL) inhalation BIDR #120 01/14/23 02/03/23 Rx solution for nebulization mL (Perforomist) ipratropium 0.5 mg-albuterol 3 mg 3 ml NEB Q6H PRN shortness of 01/14/23 02/03/23 Rx (2.5 mg base)/3 mL nebulization breath or wheezing #180 mL soln tiotropium bromide 2.5 1 inh inhalation BID #4 grams 01/14/23 02/03/23 Rx mcg/actuation mist for inhalation (Spiriva Respimat) azithromycin 250 mg tablet 250 mg PO 3XWK 02/03/23 02/03/23 History Patient History Medical History Acute and chronic respiratory failure with hypercapnia Acute respiratory acidosis Chronic hypercapnic respiratory failure Chronic hypoxemic respiratory failure COPD exacerbation COPD, very severe DM II (diabetes mellitus, type II), controlled History of gastroesophageal reflux (GERD) History of hyperlipidemia HTN (hypertension) Hypoxemia Pulmonary emphysema Therapeutic drug monitoring Tobacco abuse counseling Surgical History History of appendectomy History of tonsillectomy History of tubal ligation Family History Father Coronary heart disease Mother Pancreatic cancer Brother Brain tumor Sister Myocardial infarction Social History Smoking Status: Current every day smoker Cigarettes Per Day: lifelong smoker- now down to 2 per day; Second Hand Exposure: No; Do You Dip or Chew Tobacco: No; Tobacco Cessation Education Requested by Patient: No Hx Alcohol Use: No Hx Substance Use: No Preferred Language: [place] Zealander Communication Ability: Effective Behavioral Therapy Coordinator Required: No Beliefs That Will Affect Care: None Current Living Situation: Alone Current Living Situation Comment: son lives upstairs Other Information That Helps Us Care for You: No Feels Safe at Home: Yes Safety Concerns: Feels Safe At This Time Assistive Devices: Oxygen - Continuous Review of Systems Review of Systems: ESAS Pain 0/3 Dyspnea 2/3 Nausea 0/3 Drowsiness 0/3 Physical Exam Constitutional: + cachectic Respiratory: + uses accessory muscles Cardiovascular: Rate/Rhythm: regular rate and regular rhythm Musculoskeletal: Extremities: + muscle atrophy Skin: warm and dry Neurologic: Speech / Cognition: normal cognition Results & Data Vital Signs (Past 12 Hours) Vital Signs Temp Pulse Pulse Resp BP Pulse Ox O2 Del Method 02/04/23 09:31 Nasal Cannula 02/04/23 08:04 118 H 24 136/74 02/04/23 07:49 98.1 F 117 H 18 93/58 L 100 High Flow Nasal Cannula 02/04/23 07:25 87 24 98 Nasal Cannula 02/04/23 07:00 106 H 02/04/23 03:38 97.5 F L 89 20 117/70 97 CPAP 02/04/23 02:28 68 17 96 02/04/23 00:00 100 H 02/03/23 23:12 98.6 F 96 H 20 105/61 95 CPAP 02/03/23 22:45 106 H 25 H 96 O2 Flow Rate 02/04/23 09:31 4 02/04/23 08:04 02/04/23 07:49 5 02/04/23 07:25 5 02/04/23 07:00 02/04/23 03:38 4 02/04/23 02:28 3 02/04/23 00:00 02/03/23 23:12 4 02/03/23 22:45 4 PG Care Time/CCT Total # of Minutes Spent Total Time Spent: 84 Total Time Spent with Patient: Total time spent is greater than 50% in coordination of care (as documented) at patient's floor/unit and/or counseling patient: [id number] goals of care, hospice, prognosis, POLST, patient and family education and support, coordination of care Coding Level of Care Code 56882 INT INP/OBS CARE 3/75MIN Diagnoses Dyspnea R06.00 Palliative care encounter Z51.5
--- NOTE | 2023-02-04 13:27 | Hospitalist Progress Note ---
Date of Service February 04, 2023 Assessment & Plan (1) Acute exacerbation of chronic obstructive pulmonary disease: (2) Acute and chronic respiratory failure with hypercapnia: (3) Shortness of breath: (4) Protein malnutrition: (5) DM II (diabetes mellitus, type II), controlled: (6) Pulmonary emphysema: Plan: -Patient is a 67-year-old female with history of severe COPD who presented with increasing shortness of breath. Pt is found to be in acute on chronic hypercarbic respiratory failure with a pH of 7.3 and a PCO2 of 99. -ABG reviewed; pH of 7.43 with PCO2 of 72. -emphysema without acute process -Continue budesonide and formoterol nebs along with DuoNebs every 6 hours -Patient declined any steroids as she reports that it makes her delirious Patient interested in hospice care. She currently lives at home and reports increasing difficulty and carry out her activities of daily living. She wants to go to rehab under hospice care. will discontinue any further lab work Continue current inhalers for the time being Discussed with immigration case worker. CODE: DNR/DNI Dispo: From home, to assist with possible transition to hospice at [facility] Please note the above document was generated using voice recognition software. It may contain grammatical, syntax or spelling errors. Any formal questions or concerns about the content, text or information contained within the body of this dictation should be directly addressed to the provider for clarification Admission and Anticipated Discharge Date Admission Date: February 03, 2023 Subjective Patient seen and examined at bedside. She is lying in the bed comfortably. Denies any increasing shortness of breath. Reports that she gets delirious with steroids. Review of Systems Review of Systems: All systems reviewed & are unremarkable except as noted in Subjective Physical Exam Physical Exam: General: awake, alert, no apparent distress, cachectic, appears older than stated age Head: Normocephalic, atraumatic Chest: Diminished breath sounds throughout, Cardiac: Sinus tach with HR in the 90s, no murmur, no JVD, normal peripheral pulses, good capillary refill Abdominal: NABS x 4 quadrants, soft, nondistended, nontender to palpation, no rebound or guarding Extremities: Normal inspection, no peripheral edema or erythema, calfs nontender to palpation Psych: Normal mood and affect Neuro: AAO x 3, strength intact bilaterally and rated 5/5, no motor deficits, speech is clear, no peripheral sensory deficits, sensation to light and sharp touch intact in bilateral lower legs Results & Data Results & Data Vital Signs (Past 12 Hours) Vital Signs Temp Pulse Pulse Resp BP Pulse Ox O2 Del Method 02/04/23 11:37 37.1 C 114 H 18 106/65 100 High Flow Nasal Cannula 02/04/23 09:31 Nasal Cannula 02/04/23 08:04 118 H 24 136/74 02/04/23 07:49 36.7 C 117 H 18 93/58 L 100 High Flow Nasal Cannula 02/04/23 07:25 87 24 98 Nasal Cannula 02/04/23 07:00 106 H 02/04/23 03:38 36.4 C L 89 20 117/70 97 CPAP 02/04/23 02:28 68 17 96 O2 Flow Rate 02/04/23 11:37 5 02/04/23 09:31 4 02/04/23 08:04 02/04/23 07:49 5 02/04/23 07:25 5 02/04/23 07:00 02/04/23 03:38 4 02/04/23 02:28 3 Laboratory Results Laboratory Results WBC 6.91 K/ul (4.8-10.8) 02/04/23 06:47 RBC 3.34 M/uL (4.20-5.40) L 02/04/23 06:47 Hgb 10.1 g/dl (12.0-16.0) L 02/04/23 06:47 Hct 33.1 % (37.0-47.0) L 02/04/23 06:47 MCV 99.1 fL (80.0-100.0) 02/04/23 06:47 MCH 30.2 pg (25.0-34.0) 02/04/23 06:47 MCHC 30.5 g/dL (32.0-36.0) L 02/04/23 06:47 RDW Std Deviation 41.8 fL (36.4-46.3) 02/04/23 06:47 RDW Coeff of Patricia 11.5 % (11.5-14.5) 02/04/23 06:47 Plt Count 175 K/uL (130-400) 02/04/23 06:47 MPV 9.1 fL (9.4-12.4) L 02/04/23 06:47 Immature Gran % (Auto) 0.4 % 02/03/23 13: Neut % (Auto) 84.8 % 02/03/23 13: Lymph % (Auto) 7.5 % 02/03/23 13:28 [place] % (Auto) 6.2 % 02/03/23 13: Eos % (Auto) 0.9 % 02/03/23 13: Baso % (Auto) 0.2 % 02/03/23 13: Neut # (Auto) 7.83 K/uL (1.40-6.50) H 02/03/23 13: Lymph # (Auto) 0.69 K/uL (1.2-3.4) L 02/03/23 13: [place] # (Auto) 0.57 K/uL (0.11-0.59) 02/03/23 13: Eos # (Auto) 0.08 K/uL (0-0.50) 02/03/23 13: Baso # (Auto) 0.02 K/uL (0-0.2) 02/03/23 13: Immature Gran # (Auto) 0.04 K/uL (0.01-0.20) 02/03/23 13: PT 10.2 Seconds (9.0-12.0) 02/03/23 13: INR 0.9 (0.9-1.1) 02/03/23 13: APTT 23.4 Seconds (21.0-31.0) 02/03/23 13: PTT Ratio 0.8 02/03/23 13: ABG pH 7.43 (7.35-7.45) 02/03/23 18:19 ABG pCO2 72 mmHg (35-46) H 02/03/23 18:19 ABG pO2 126 mmHg (80-95) H 02/03/23 18:19 ABG HCO3 48 mmol/L (19-24) H 02/03/23 18:19 ABG O2 Saturation 99.8 % (90-95) H 02/03/23 18:19 ABG Base Excess 19.3 mEq/L (-9-1.8) H 02/03/23 18:19 Mark Test Pos (Pos) 02/03/23 18:19 VBG pH 7.31 (7.36-7.41) L 02/03/23 13:28 VBG pCO2 99 mmHg (38-50) H 02/03/23 13:28 VBG pO2 59 mmHg 02/03/23 13:28 VBG HCO3 50 mmol/L 02/03/23 13:28 VBG O2 Saturation 89.8 % 02/03/23 13:28 VBG Base Excess 18.3 mEq/L 02/03/23 13:28 Oxygen Given BiPAP 40 02/03/23 18:19 Sodium 139 mmol/L (136-145) 02/04/23 06:47 Potassium 4.5 mmol/L (3.5-5.1) 02/04/23 06:47 Chloride 90 mmol/L (98-107) L 02/04/23 06:47 Carbon Dioxide 45 mmol/L (21-32) H* 02/04/23 06:47 Anion Gap 4 (3-11) 02/04/23 06:47 BUN 17 mg/dl (6-23) 02/04/23 06:47 Creatinine 0.45 mg/dl (0.6-1.2) L 02/04/23 06:47 Est Cr Clr Drug Dosing 71.2 ml/min 02/04/23 06:47 Est GFR ( Amer) 120.2 ml/min 02/04/23 06:47 Est GFR (Non-Af Amer) 103.7 ml/min 02/04/23 06:47 BUN/Creatinine Ratio 37.8 (10-20) H 02/04/23 06:47 Glucose 96 mg/dl (70-99(Fasting)) 02/04/23 06:47 Calcium 9.5 mg/dl (8.6-10.3) 02/04/23 06:47 Magnesium 2.2 mg/dl (1.7-2.4) 02/04/23 06:47 Transferrin 251 mg/dl (200-360) 02/03/23 13:28 Total Bilirubin 0.3 mg/dl (0.2-1.0) 02/03/23 13:28 AST 28 U/L (13-39) 02/03/23 13:28 ALT 24 U/L (7-52) 02/03/23 13:28 Alkaline Phosphatase 88 U/L (34-104) 02/03/23 13:28 Troponin I High Sens 19.4 pg/ml (0-14) H 02/03/23 13:28 B-Natriuretic Peptide 33 pg/ml (0-100) 02/03/23 13:28 Total Protein 6.7 gm/dl (6.0-8.3) 02/03/23 13:28 Albumin 4.1 gm/dl (3.4-5.0) 02/03/23 13:28 Globulin 2.6 gm/dl (2.5-4.0) 02/03/23 13:28 Albumin/Globulin Ratio 1.6 (0.9-2) 02/03/23 13:28 Vitamin B12 703 pg/ml (180-914) 02/03/23 13:28 Folate > 22.30 ng/ml (>5.38) 02/03/23 13:28 TSH 0.545 uIu/ml (0.300-4.500) 02/03/23 13:28 SARS-CoV-2, RNA, NAAT NEGATIVE (NEGATIVE) 02/03/23 13:50 Impressions Chest X-Ray 02/03/23 13:08 XR chest 1V portable HISTORY: 67 years-old Female Chest pain, nonspecific COMPARISON: 01/10/2023 TECHNIQUE: AP view of the chest FINDINGS: Cardiomediastinal and hilar silhouettes are unchanged. Severe emphysema. No pneumothorax, pleural effusion, airspace consolidation or pulmonary edema. Nipple shadow projects over the left lung base. Unchanged right apical nodular density, likely pleural parenchymal scarring. Cholecystectomy. Degenerative changes of the shoulders and spine. 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 IMPRESSION: Emphysema without acute process. ACT 112: Negative or not required by law. The above report was generated using voice recognition software. It may contain grammatical, syntax or spelling errors. Electronically signed by: Wilmer Landrum M.D. 02/03/2023 1:57 PM
[2023-02-04] MEDS: ALBUT/IPRATROP 3MG/0.5MG NEB 3 ML VIAL NEB SCH ×3 (13:31→23:24)
--- NOTE | 2023-02-04 14:42 | Pulmonary Consultation ---
Date of Consultation February 04, 2023 Assessment & Plan (1) Acute and chronic respiratory failure with hypercapnia: (2) Dyspnea: (3) Acute exacerbation of chronic obstructive pulmonary disease: Plan -- Continue beduesonide bid, performomist bid, spiriva / 5 days of azithromycin -- Patient plans to transition to hospice. Palliative care has been consulted. Will sign off for now. Please call with any questions History of Present Illness Reason for Consultation: COPD exacerbation Requesting Physician: Dr. Mcduffie Attending Physician: Isaac Mcduffie MD History of Present Illness 67 F with Severe copd on 8L at home per her report, DM, HTN, esophagitis, de pression, tobacco abuse admitted mutliple times this year for COPD exacerbation. Admitted on 02/03/2023 for acute on chronic hypoxemic / hypercapnic respiratory failure with initial pH of 7.3, PCO2 of 99, requiring bipap overnight. This am, appears comfortable on [place] oxygen. She tells me that she would like to re- enguage palliative care as she has given a lot of thought regarding transition to hospice. Allergies Allergy/AdvReac Type Severity Reaction Status Date / Time prednisone AdvReac Intermediate Confusion/PSYCH Verified 02/03/23 15:03 [place] [facility] [place] Medications Medication Instructions Recorded Confirmed Type aspirin 81 mg tablet,delayed 81 mg PO QAM 05/25/19 02/03/23 History release (Adult Low Dose Aspirin) atorvastatin 10 mg tablet 10 mg PO HS 05/25/19 02/03/23 History lisinopril 5 mg tablet 5 mg PO QAM 05/25/19 02/03/23 History loratadine 10 mg capsule 10 mg PO DAILY PRN allergies 05/25/19 02/03/23 History trazodone 50 mg tablet 75 mg PO HS 05/25/19 02/03/23 History albuterol sulfate 90 mcg/actuation 2 puffs inhalation Q4H PRN 05/26/19 02/03/23 History aerosol inhaler (Ventolin HFA) Shortness Of Breath meloxicam 15 mg tablet 15 mg PO QAM 05/26/19 02/03/23 History esomeprazole magnesium 20 mg 20 mg PO DAILYBB 11/13/21 02/03/23 History capsule,delayed release multivitamin 1 tab PO DAILY 11/13/21 02/03/23 History tramadol 50 mg tablet 50 mg PO Q6H PRN Pain, Moderate 11/13/21 02/03/23 History vitamin B complex 1 cap PO DAILY 11/13/21 02/03/23 History Portable Oxygen #1 ea 07/17/22 02/03/23 Rx guaifenesin 600 mg tablet, 600 mg PO BID 01/10/23 02/03/23 History extended release 12 hr (Mucinex) zinc sulfate 50 mg zinc (220 mg) 50 mg PO DAILY 01/10/23 02/03/23 History tablet budesonide 0.5 mg/2 mL suspension 0.5 mg (2 mL) inhalation BID 30 01/14/23 02/03/23 Rx for nebulization days #120 mL formoterol fumarate 20 mcg/2 mL 20 mcg (2 mL) inhalation BIDR #120 01/14/23 02/03/23 Rx solution for nebulization mL (Perforomist) ipratropium 0.5 mg-albuterol 3 mg 3 ml NEB Q6H PRN shortness of 01/14/23 02/03/23 Rx (2.5 mg base)/3 mL nebulization breath or wheezing #180 mL soln tiotropium bromide 2.5 1 inh inhalation BID #4 grams 01/14/23 02/03/23 Rx mcg/actuation mist for inhalation (Spiriva Respimat) azithromycin 250 mg tablet 250 mg PO 3XWK 02/03/23 02/03/23 History Patient History Medical History Acute and chronic respiratory failure with hypercapnia Acute respiratory acidosis Chronic hypercapnic respiratory failure Chronic hypoxemic respiratory failure COPD exacerbation COPD, very severe DM II (diabetes mellitus, type II), controlled History of gastroesophageal reflux (GERD) History of hyperlipidemia HTN (hypertension) Hypoxemia Pulmonary emphysema Therapeutic drug monitoring Tobacco abuse counseling Surgical History History of appendectomy History of tonsillectomy History of tubal ligation Family History Father Coronary heart disease Mother Pancreatic cancer Brother Brain tumor Sister Myocardial infarction Social History Smoking Status: Current every day smoker Cigarettes Per Day: lifelong smoker- now down to 2 per day; Second Hand Exposure: No; Do You Dip or Chew Tobacco: No; Tobacco Cessation Education Requested by Patient: No Hx Alcohol Use: No Hx Substance Use: No Preferred Language: Grenadian Communication Ability: Effective Medical Reviewer Required: No Beliefs That Will Affect Care: None Current Living Situation: Alone Current Living Situation Comment: son lives upstairs Other Information That Helps Us Care for You: No Feels Safe at Home: Yes Safety Concerns: Feels Safe At This Time Assistive Devices: Oxygen - Continuous Review of Systems Review of Systems: Denies, chest pain, dypsnea, N/V Physical Exam Physical Exam: Gen: A/O x 3 CV: RRR Resp: Diffuse exp wheezing Ext: warm, dry Skin: no rashes Results & Data Results & Data Vital Signs (Past 12 Hours) Vital Signs Temp Pulse Pulse Resp BP Pulse Ox O2 Del Method 02/04/23 13:31 101 H 18 99 Nasal Cannula 02/04/23 11:37 37.1 C 114 H 18 106/65 100 High Flow Nasal Cannula 02/04/23 09:31 Nasal Cannula 02/04/23 08:04 118 H 24 136/74 02/04/23 07:49 36.7 C 117 H 18 93/58 L 100 High Flow Nasal Cannula 02/04/23 07:25 87 24 98 Nasal Cannula 02/04/23 07:00 106 H 02/04/23 03:38 36.4 C L 89 20 117/70 97 CPAP O2 Flow Rate 02/04/23 13:31 5 02/04/23 11:37 5 02/04/23 09:31 4 02/04/23 08:04 02/04/23 07:49 5 02/04/23 07:25 5 02/04/23 07:00 02/04/23 03:38 4 PG Care Time/CCT Total # of Minutes Spent Total Time Spent with Patient: Total time spent is greater than 50% in coordination of care (as documented) at patient's floor/unit and/or counseling patient: Coding Level of Care Code 43323 IN/OBS CONSULT LVL 2,35M Diagnoses Acute and chronic respiratory failure with hypercapnia J96.22 Dyspnea R06.00 Acute exacerbation of chronic obstructive pulmonary disease J44.1
[2023-02-04] MEDS: AZITHROMYCIN 500 MG in DEXTROSE 5% 250 ML IV SCH (17:46)
[2023-02-04] MEDS ORDERED: DOCUSATE SODIUM/SENNA 50/8.6MG TAB PO STA (19:32)
[2023-02-04] MEDS: traZODone HCL 50 MG TAB PO SCH (20:54)
[2023-02-04] MEDS: ATORVASTATIN 10 MG TAB PO SCH (20:56)
[2023-02-05] MEDS: PANTOprazole 40 MG TAB PO SCH (05:24)
[2023-02-05] MEDS: BUDESONIDE 0.5 MG/2 ML VIAL (PULMICORT) INH SCH ×2 (07:10→19:09)
[2023-02-05] MEDS: FORMOTEROL 20 MCG/2 ML VIAL INH SCH ×2 (07:10→19:09)
[2023-02-05] MEDS: ALBUT/IPRATROP 3MG/0.5MG NEB 3 ML VIAL NEB SCH ×4 (07:11→22:28)
[2023-02-05] MEDS ORDERED: MoRPHine SULFATE 2 MG/ML CARP IV PRN (07:27)
[2023-02-05] MEDS: lisinopril 5 MG TAB PO SCH (08:04)
[2023-02-05] MEDS: MELOXICAM 7.5 MG TAB PO SCH (08:04)
[2023-02-05] MEDS: MULTIVITAMIN TAB PO SCH (08:04)
[2023-02-05] MEDS: guaiFENesin 600 MG TABCR PO SCH ×2 (08:04→20:47)
[2023-02-05] MEDS: ASPIRIN 81 MG ECTAB PO SCH (08:04)
[2023-02-05] MEDS: CARBAMIDE PEROXIDE 6.5% 15 ML BTL OTR SCH ×2 (08:05→20:47)
[2023-02-05] MEDS: traMADol HCL 50 MG TABLET PO PRN (09:34)
--- NOTE | 2023-02-05 12:07 | Hospitalist Progress Note ---
Date of Service February 05, 2023 Assessment & Plan (1) Acute exacerbation of chronic obstructive pulmonary disease: (2) Acute and chronic respiratory failure with hypercapnia: (3) Shortness of breath: (4) Protein malnutrition: (5) DM II (diabetes mellitus, type II), controlled: (6) Pulmonary emphysema: Plan: -Patient is a 67-year-old female with history of severe COPD who presented with increasing shortness of breath. Pt is found to be in acute on chronic hypercarbic respiratory failure with a pH of 7.3 and a PCO2 of 99. -last ABG reviewed; pH of 7.43 with PCO2 of 72. -Chest x-ray reviewed personally emphysema without acute process -Continue budesonide and formoterol nebs along with DuoNebs every 6 hours -Patient declined any steroids as she reports that it makes her delirious Patient interested in hospice care. She currently lives at home and reports increasing difficulty and carry out her activities of daily living. She wants to go to rehab under hospice care. will discontinue any further lab work Continue current inhalers for the time being Discussed with supportive employment case manager for arrangement of hospice at discharge. Ordered morphine as needed for dyspnea. Patient willing to trial low-dose morphine to see if that will help with dyspnea. CODE: DNR/DNI Dispo: From home, to assist with possible transition to hospice at [facility] Please note the above document was generated using voice recognition software. It may contain grammatical, syntax or spelling errors. Any formal questions or concerns about the content, text or information contained within the body of this dictation should be directly addressed to the provider for clarification Admission and Anticipated Discharge Date Admission Date: February 03, 2023 Subjective Patient seen and examined at bedside. She appears comfortable; not in distress. Review of Systems Review of Systems: All systems reviewed & are unremarkable except as noted in Subjective Physical Exam Physical Exam: General: awake, alert, no apparent distress, cachectic, appears older than stated age Head: Normocephalic, atraumatic Chest: Diminished breath sounds throughout, Cardiac:no murmur, no JVD, normal peripheral pulses, good capillary refill Abdominal: NABS x 4 quadrants, soft, nondistended, nontender to palpation, no rebound or guarding Extremities: Normal inspection, no peripheral edema or erythema, calfs nontender to palpation Psych: Normal mood and affect Neuro: AAO x 3, strength intact bilaterally and rated 5/5, no motor deficits, speech is clear, no peripheral sensory deficits, sensation to light and sharp touch intact in bilateral lower legs Results & Data Results & Data Vital Signs (Past 12 Hours) Vital Signs Temp Pulse Pulse Resp BP Pulse Ox O2 Del Method 02/05/23 11:55 36.8 C 85 18 87/42 L 100 Nasal Cannula 02/05/23 09:54 Room Air 02/05/23 08:06 37.0 C 108 H 18 111/69 100 Nasal Cannula 02/05/23 07:29 83 02/05/23 07:12 86 15 98 02/05/23 07:12 86 15 98 BiPAP 02/05/23 04:15 36.8 C 84 20 90/58 L 93 CPAP 02/05/23 02:59 74 18 98 O2 Flow Rate 02/05/23 11:55 5 02/05/23 09:54 02/05/23 08:06 5 02/05/23 07:29 02/05/23 07:12 4 02/05/23 07:12 4 02/05/23 04:15 4 02/05/23 02:59 3 Laboratory Results Laboratory Results WBC 6.91 K/ul (4.8-10.8) 02/04/23 06:47 RBC 3.34 M/uL (4.20-5.40) L 02/04/23 06:47 Hgb 10.1 g/dl (12.0-16.0) L 02/04/23 06:47 Hct 33.1 % (37.0-47.0) L 02/04/23 06:47 MCV 99.1 fL (80.0-100.0) 02/04/23 06:47 MCH 30.2 pg (25.0-34.0) 02/04/23 06:47 MCHC 30.5 g/dL (32.0-36.0) L 02/04/23 06:47 RDW Std Deviation 41.8 fL (36.4-46.3) 02/04/23 06:47 RDW Coeff of Patricia 11.5 % (11.5-14.5) 02/04/23 06:47 Plt Count 175 K/uL (130-400) 02/04/23 06:47 MPV 9.1 fL (9.4-12.4) L 02/04/23 06:47 Immature Gran % (Auto) 0.4 % 02/03/23 13: Neut % (Auto) 84.8 % 02/03/23 13: Lymph % (Auto) 7.5 % 02/03/23 13: [place] % (Auto) 6.2 % 02/03/23 13: Eos % (Auto) 0.9 % 02/03/23 13: Baso % (Auto) 0.2 % 02/03/23 13: Neut # (Auto) 7.83 K/uL (1.40-6.50) H 02/03/23 13: Lymph # (Auto) 0.69 K/uL (1.2-3.4) L 02/03/23 13: [place] # (Auto) 0.57 K/uL (0.11-0.59) 02/03/23 13: Eos # (Auto) 0.08 K/uL (0-0.50) 02/03/23 13: Baso # (Auto) 0.02 K/uL (0-0.2) 02/03/23 13: Immature Gran # (Auto) 0.04 K/uL (0.01-0.20) 02/03/23 13: PT 10.2 Seconds (9.0-12.0) 02/03/23 13: INR 0.9 (0.9-1.1) 02/03/23 13: APTT 23.4 Seconds (21.0-31.0) 02/03/23 13: PTT Ratio 0.8 02/03/23 13: ABG pH 7.43 (7.35-7.45) 02/03/23 18:19 ABG pCO2 72 mmHg (35-46) H 02/03/23 18:19 ABG pO2 126 mmHg (80-95) H 02/03/23 18:19 ABG HCO3 48 mmol/L (19-24) H 02/03/23 18:19 ABG O2 Saturation 99.8 % (90-95) H 02/03/23 18:19 ABG Base Excess 19.3 mEq/L (-9-1.8) H 02/03/23 18:19 Mark Test Pos (Pos) 02/03/23 18:19 VBG pH 7.31 (7.36-7.41) L 02/03/23 13:28 VBG pCO2 99 mmHg (38-50) H 02/03/23 13:28 VBG pO2 59 mmHg 02/03/23 13:28 VBG HCO3 50 mmol/L 02/03/23 13:28 VBG O2 Saturation 89.8 % 02/03/23 13:28 VBG Base Excess 18.3 mEq/L 02/03/23 13:28 Oxygen Given BiPAP 40 02/03/23 18:19 Sodium 139 mmol/L (136-145) 02/04/23 06:47 Potassium 4.5 mmol/L (3.5-5.1) 02/04/23 06:47 Chloride 90 mmol/L (98-107) L 02/04/23 06:47 Carbon Dioxide 45 mmol/L (21-32) H* 02/04/23 06:47 Anion Gap 4 (3-11) 02/04/23 06:47 BUN 17 mg/dl (6-23) 02/04/23 06:47 Creatinine 0.45 mg/dl (0.6-1.2) L 02/04/23 06:47 Est Cr Clr Drug Dosing 71.2 ml/min 02/04/23 06:47 Est GFR ( Amer) 120.2 ml/min 02/04/23 06:47 Est GFR (Non-Af Amer) 103.7 ml/min 02/04/23 06:47 BUN/Creatinine Ratio 37.8 (10-20) H 02/04/23 06:47 Glucose 96 mg/dl (70-99(Fasting)) 02/04/23 06:47 Calcium 9.5 mg/dl (8.6-10.3) 02/04/23 06:47 Magnesium 2.2 mg/dl (1.7-2.4) 02/04/23 06:47 Transferrin 251 mg/dl (200-360) 02/03/23 13:28 Total Bilirubin 0.3 mg/dl (0.2-1.0) 02/03/23 13:28 AST 28 U/L (13-39) 02/03/23 13:28 ALT 24 U/L (7-52) 02/03/23 13:28 Alkaline Phosphatase 88 U/L (34-104) 02/03/23 13:28 Troponin I High Sens 19.4 pg/ml (0-14) H 02/03/23 13:28 B-Natriuretic Peptide 33 pg/ml (0-100) 02/03/23 13:28 Total Protein 6.7 gm/dl (6.0-8.3) 02/03/23 13:28 Albumin 4.1 gm/dl (3.4-5.0) 02/03/23 13:28 Globulin 2.6 gm/dl (2.5-4.0) 02/03/23 13:28 Albumin/Globulin Ratio 1.6 (0.9-2) 02/03/23 13:28 Vitamin B12 703 pg/ml (180-914) 02/03/23 13:28 Folate > 22.30 ng/ml (>5.38) 02/03/23 13:28 TSH 0.545 uIu/ml (0.300-4.500) 02/03/23 13:28 SARS-CoV-2, RNA, NAAT NEGATIVE (NEGATIVE) 02/03/23 13:50 Impressions Chest X-Ray 02/03/23 13:08 XR chest 1V portable HISTORY: 67 years-old Female Chest pain, nonspecific COMPARISON: 01/10/2023 TECHNIQUE: AP view of the chest FINDINGS: Cardiomediastinal and hilar silhouettes are unchanged. Severe emphysema. No pneumothorax, pleural effusion, airspace consolidation or pulmonary edema. Nipple shadow projects over the left lung base. Unchanged right apical nodular density, likely pleural parenchymal scarring. Cholecystectomy. Degenerative changes of the shoulders and spine. 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 IMPRESSION: Emphysema without acute process. ACT 112: Negative or not required by law. The above report was generated using voice recognition software. It may contain grammatical, syntax or spelling errors. Electronically signed by: Wilmer Landrum M.D. 02/03/2023 1:57 PM
[2023-02-05] MEDS: AZITHROMYCIN 500 MG in DEXTROSE 5% 250 ML IV SCH (17:16)
[2023-02-05] MEDS: MoRPHine SULFATE 2 MG/ML CARP IV PRN (19:28)
--- NOTE | 2023-02-05 19:42 | Electrocardiogram Report ---
Test Reason : Blood Pressure : / mmHG Vent. Rate : 123 BPM Atrial Rate : 123 BPM P-R Int : 150 ms QRS Dur : 070 ms QT Int : 284 ms P-R-T Axes : 090 070 061 degrees QTc Int : 406 ms Sinus tachycardia Otherwise normal ECG When compared with ECG of 12-JAN-2023 13:46, No significant change was found Confirmed by Nino Gomez ([id number] on 02/05/2023 7:41:42 PM Referred By: Confirmed By:Nino Gomez
[2023-02-05] MEDS: ATORVASTATIN 10 MG TAB PO SCH (20:47)
[2023-02-05] MEDS: traZODone HCL 50 MG TAB PO SCH (20:47)
[2023-02-06] MEDS ORDERED: SODIUM CHLORIDE 0.9% 500 ML IV SCH (01:45)
[2023-02-06] MEDS: traMADol HCL 50 MG TABLET PO PRN ×4 (03:45→23:01)
[2023-02-06] MEDS: PANTOprazole 40 MG TAB PO SCH (06:08)
[2023-02-06] MEDS: ALBUT/IPRATROP 3MG/0.5MG NEB 3 ML VIAL NEB SCH ×4 (07:06→23:09)
[2023-02-06] MEDS: FORMOTEROL 20 MCG/2 ML VIAL INH SCH ×2 (07:06→19:49)
[2023-02-06] MEDS: BUDESONIDE 0.5 MG/2 ML VIAL (PULMICORT) INH SCH ×2 (07:06→19:49)
[2023-02-06] MEDS: lisinopril 5 MG TAB PO SCH (07:45)
[2023-02-06] MEDS: MULTIVITAMIN TAB PO SCH (07:45)
[2023-02-06] MEDS: MELOXICAM 7.5 MG TAB PO SCH (07:45)
[2023-02-06] MEDS: ASPIRIN 81 MG ECTAB PO SCH (07:45)
[2023-02-06] MEDS: guaiFENesin 600 MG TABCR PO SCH ×2 (07:45→20:44)
[2023-02-06] MEDS: CARBAMIDE PEROXIDE 6.5% 15 ML BTL OTR SCH ×2 (07:46→20:43)
[2023-02-06] MEDS: GABAPENTIN 100 MG CAP PO SCH ×3 (09:03→20:44)
--- NOTE | 2023-02-06 12:27 | Hospitalist Progress Note ---
Date of Service February 06, 2023 Assessment & Plan (1) Acute exacerbation of chronic obstructive pulmonary disease: (2) Acute and chronic respiratory failure with hypercapnia: (3) Shortness of breath: (4) Protein malnutrition: (5) DM II (diabetes mellitus, type II), controlled: (6) Pulmonary emphysema: Plan: -Patient is a 67-year-old female with history of severe COPD who presented with increasing shortness of breath. Pt is found to be in acute on chronic hypercarbic respiratory failure with a pH of 7.3 and a PCO2 of 99. -last ABG reviewed; pH of 7.43 with PCO2 of 72. -Chest x-ray reviewed personally emphysema without acute process -Continue budesonide and formoterol nebs along with DuoNebs every 6 hours -Patient declined any steroids as she reports that it makes her delirious Patient interested in hospice care. She currently lives at home and reports increasing difficulty and carry out her activities of daily living. She wants to go to rehab under hospice care. will discontinue any further lab work Started on trial of low-dose gabapentin given bilateral lower extremity pain. Continue current inhalers for the time being Discussed with shoe parts caser for arrangement of hospice at discharge. Ordered morphine as needed for dyspnea. Patient willing to trial low-dose morphine to see if that will help with dyspnea. CODE: DNR/DNI Dispo: From home, to assist with possible transition to hospice at [facility] Please note the above document was generated using voice recognition software. It may contain grammatical, syntax or spelling errors. Any formal questions or concerns about the content, text or information contained within the body of this dictation should be directly addressed to the provider for clarification Admission and Anticipated Discharge Date Admission Date: February 03, 2023 Subjective Patient seen and examined at bedside. Reports tingling sensation in bilateral lower extremity. Afebrile. Reports that her breathing is at baseline. Review of Systems Review of Systems: All systems reviewed & are unremarkable except as noted in Subjective Physical Exam Physical Exam: General: awake, alert, no apparent distress, cachectic, appears older than stated age Head: Normocephalic, atraumatic Chest: Diminished breath sounds throughout, ENT: Otoscopic performed; has wax on her left ear. No wax seen on right ear. Patient currently on eardrops. Cardiac:no murmur, no JVD, normal peripheral pulses, good capillary refill Abdominal: NABS x 4 quadrants, soft, nondistended, nontender to palpation, no rebound or guarding Extremities: Normal inspection, no peripheral edema or erythema, calfs nontender to palpation Psych: Normal mood and affect Neuro: AAO x 3, strength intact bilaterally and rated 5/5, no motor deficits, speech is clear, no peripheral sensory deficits, sensation to light and sharp touch intact in bilateral lower legs Results & Data Results & Data Vital Signs (Past 12 Hours) Vital Signs Temp Pulse Pulse Resp BP BP Pulse Ox 02/06/23 09:30 02/06/23 09:28 36.7 C 82 17 110/68 100 02/06/23 08:16 36.6 C 89 18 101/49 L 100 02/06/23 07:06 78 17 99 02/06/23 03:31 97 H 101/60 02/06/23 02:45 82 15 95 02/06/23 01:31 37 C 91 H 18 85/44 L 94/59 L 91 O2 Del Method O2 Flow Rate 02/06/23 09:30 Nasal Cannula 6 02/06/23 09:28 Nasal Cannula 02/06/23 08:16 High Flow Nasal Cannula 5 02/06/23 07:06 BiPAP 4 02/06/23 03:31 02/06/23 02:45 3 02/06/23 01:31 BiPAP Laboratory Results Laboratory Results WBC 6.91 K/ul (4.8-10.8) 02/04/23 06:47 RBC 3.34 M/uL (4.20-5.40) L 02/04/23 06:47 Hgb 10.1 g/dl (12.0-16.0) L 02/04/23 06:47 Hct 33.1 % (37.0-47.0) L 02/04/23 06:47 MCV 99.1 fL (80.0-100.0) 02/04/23 06:47 MCH 30.2 pg (25.0-34.0) 02/04/23 06:47 MCHC 30.5 g/dL (32.0-36.0) L 02/04/23 06:47 RDW Std Deviation 41.8 fL (36.4-46.3) 02/04/23 06:47 RDW Coeff of Patricia 11.5 % (11.5-14.5) 02/04/23 06:47 Plt Count 175 K/uL (130-400) 02/04/23 06:47 MPV 9.1 fL (9.4-12.4) L 02/04/23 06:47 Immature Gran % (Auto) 0.4 % 02/03/23 13:28 Neut % (Auto) 84.8 % 02/03/23 13:28 Lymph % (Auto) 7.5 % 02/03/23 13:28 Hand % (Auto) 6.2 % 02/03/23 13:28 Eos % (Auto) 0.9 % 02/03/23 13:28 Baso % (Auto) 0.2 % 02/03/23 13:28 Neut # (Auto) 7.83 K/uL (1.40-6.50) H 02/03/23 13:28 Lymph # (Auto) 0.69 K/uL (1.2-3.4) L 02/03/23 13:28 Hand # (Auto) 0.57 K/uL (0.11-0.59) 02/03/23 13:28 Eos # (Auto) 0.08 K/uL (0-0.50) 02/03/23 13:28 Baso # (Auto) 0.02 K/uL (0-0.2) 02/03/23 13:28 Immature Gran # (Auto) 0.04 K/uL (0.01-0.20) 02/03/23 13:28 PT 10.2 Seconds (9.0-12.0) 02/03/23 13:28 INR 0.9 (0.9-1.1) 02/03/23 13:28 APTT 23.4 Seconds (21.0-31.0) 02/03/23 13:28 PTT Ratio 0.8 02/03/23 13:28 ABG pH 7.43 (7.35-7.45) 02/03/23 18:19 ABG pCO2 72 mmHg (35-46) H 02/03/23 18:19 ABG pO2 126 mmHg (80-95) H 02/03/23 18:19 ABG HCO3 48 mmol/L (19-24) H 02/03/23 18:19 ABG O2 Saturation 99.8 % (90-95) H 02/03/23 18:19 ABG Base Excess 19.3 mEq/L (-9-1.8) H 02/03/23 18:19 Mark Test Pos (Pos) 02/03/23 18:19 VBG pH 7.31 (7.36-7.41) L 02/03/23 13:28 VBG pCO2 99 mmHg (38-50) H 02/03/23 13:28 VBG pO2 59 mmHg 02/03/23 13:28 VBG HCO3 50 mmol/L 02/03/23 13:28 VBG O2 Saturation 89.8 % 02/03/23 13:28 VBG Base Excess 18.3 mEq/L 02/03/23 13:28 Oxygen Given BiPAP 40 02/03/23 18:19 Sodium 139 mmol/L (136-145) 02/04/23 06:47 Potassium 4.5 mmol/L (3.5-5.1) 02/04/23 06:47 Chloride 90 mmol/L (98-107) L 02/04/23 06:47 Carbon Dioxide 45 mmol/L (21-32) H* 02/04/23 06:47 Anion Gap 4 (3-11) 02/04/23 06:47 BUN 17 mg/dl (6-23) 02/04/23 06:47 Creatinine 0.45 mg/dl (0.6-1.2) L 02/04/23 06:47 Est Cr Clr Drug Dosing 71.2 ml/min 02/04/23 06:47 Est GFR ( Amer) 120.2 ml/min 02/04/23 06:47 Est GFR (Non-Af Amer) 103.7 ml/min 02/04/23 06:47 BUN/Creatinine Ratio 37.8 (10-20) H 02/04/23 06:47 Glucose 96 mg/dl (70-99(Fasting)) 02/04/23 06:47 Calcium 9.5 mg/dl (8.6-10.3) 02/04/23 06:47 Magnesium 2.2 mg/dl (1.7-2.4) 02/04/23 06:47 Transferrin 251 mg/dl (200-360) 02/03/23 13:28 Total Bilirubin 0.3 mg/dl (0.2-1.0) 02/03/23 13:28 AST 28 U/L (13-39) 02/03/23 13:28 ALT 24 U/L (7-52) 02/03/23 13:28 Alkaline Phosphatase 88 U/L (34-104) 02/03/23 13:28 Troponin I High Sens 19.4 pg/ml (0-14) H 02/03/23 13:28 B-Natriuretic Peptide 33 pg/ml (0-100) 02/03/23 13:28 Total Protein 6.7 gm/dl (6.0-8.3) 02/03/23 13:28 Albumin 4.1 gm/dl (3.4-5.0) 02/03/23 13:28 Globulin 2.6 gm/dl (2.5-4.0) 02/03/23 13:28 Albumin/Globulin Ratio 1.6 (0.9-2) 02/03/23 13:28 Vitamin B12 703 pg/ml (180-914) 02/03/23 13:28 Folate > 22.30 ng/ml (>5.38) 02/03/23 13:28 TSH 0.545 uIu/ml (0.300-4.500) 02/03/23 13:28 SARS-CoV-2, RNA, NAAT NEGATIVE (NEGATIVE) 02/03/23 13:50 Impressions Chest X-Ray 02/03/23 13:08 XR chest 1V portable HISTORY: 67 years-old Female Chest pain, nonspecific COMPARISON: 01/10/2023 TECHNIQUE: AP view of the chest FINDINGS: Cardiomediastinal and hilar silhouettes are unchanged. Severe emphysema. No pneumothorax, pleural effusion, airspace consolidation or pulmonary edema. Nipple shadow projects over the left lung base. Unchanged right apical nodular density, likely pleural parenchymal scarring. Cholecystectomy. Degenerative changes of the shoulders and spine. 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 IMPRESSION: Emphysema without acute process. ACT 112: Negative or not required by law. The above report was generated using voice recognition software. It may contain grammatical, syntax or spelling errors. Electronically signed by: Wilmer Landrum M.D. 02/03/2023 1:57 PM
[2023-02-06] MEDS: ATORVASTATIN 10 MG TAB PO SCH (20:43)
[2023-02-06] MEDS: traZODone HCL 50 MG TAB PO SCH (23:02)
[2023-02-07] MEDS ORDERED: POLYETHYLENE (MIRALAX) 17 GM PACK PO PRN (01:05)
[2023-02-07] MEDS: PANTOprazole 40 MG TAB PO SCH (06:22)
[2023-02-07] MEDS: BUDESONIDE 0.5 MG/2 ML VIAL (PULMICORT) INH SCH ×2 (07:06→19:23)
[2023-02-07] MEDS: ALBUT/IPRATROP 3MG/0.5MG NEB 3 ML VIAL NEB SCH ×4 (07:06→23:38)
[2023-02-07] MEDS: FORMOTEROL 20 MCG/2 ML VIAL INH SCH ×2 (07:07→19:23)
[2023-02-07] MEDS: traMADol HCL 50 MG TABLET PO PRN ×2 (08:40→18:26)
[2023-02-07] MEDS: MELOXICAM 7.5 MG TAB PO SCH (08:41)
[2023-02-07] MEDS: guaiFENesin 600 MG TABCR PO SCH ×2 (08:41→20:36)
[2023-02-07] MEDS: lisinopril 5 MG TAB PO SCH (08:42)
[2023-02-07] MEDS: ASPIRIN 81 MG ECTAB PO SCH (08:42)
[2023-02-07] MEDS: MULTIVITAMIN TAB PO SCH (08:42)
[2023-02-07] MEDS: GABAPENTIN 100 MG CAP PO SCH ×3 (08:42→23:04)
[2023-02-07] MEDS: CARBAMIDE PEROXIDE 6.5% 15 ML BTL OTR SCH (09:36)
--- NOTE | 2023-02-07 15:54 | Hospitalist Progress Note ---
Date of Service February 07, 2023 Assessment & Plan (1) Acute exacerbation of chronic obstructive pulmonary disease: (2) Acute and chronic respiratory failure with hypercapnia: (3) Shortness of breath: (4) Protein malnutrition: (5) DM II (diabetes mellitus, type II), controlled: (6) Pulmonary emphysema: Plan: Patient is a 67 yr female with history of severe COPD who presented with increasing shortness of breath. Pt is found to be in acute on chronic hypercar bic respiratory failure with a pH of 7.3 and a PCO2 of 99. Acute on chronic COPD exacerbation Acute on chronic respiratory failure with hypoxia, hypercarbia --CXR:Emphysema without acute process. --last ABG reviewed; pH of 7.43 with PCO2 of 72. -Continue budesonide and formoterol nebs along with DuoNebs -Patient declined steroids given intolerance (reports delirium with use) -Patient interested in hospice care. She currently lives at home and reports increasing difficulty and carry out her activities of daily living. --Started on trial of low-dose gabapentin given bilateral lower extremity pain for possible Neuropathy As per prior provider ordered morphine as needed for dyspnea. Patient willing to trial low-dose morphine to see if that will help with dyspnea. Palliative care consulted Transition to hospice as able Case management to help with discharge planning GERD Continue PPI Mood disorder Continue home medications Hypertension Hyperlipidemia Continue home medications H/O DM II Diet Controlled CODE STATUS: DNR/DNI Disposition Plan to transition to hospice at SNF as per patient's request Case management to help with discharge planning Admission and Anticipated Discharge Date Admission Date: February 03, 2023 Subjective Patient is seen and examined at bedside Reports having neuropathy pain Denies any significant dyspnea today Reports intermittent chronic cough Denies any chest pain, dizziness, nausea, vomiting, abdominal pain Waiting for placement Review of Systems Review of Systems: All systems reviewed & are unremarkable except as noted in Subjective Physical Exam Physical Exam: Physical Exam: Vitals signs as noted above General Appearance: Thin, frail, chronically appearing, no apparent distress Head: normocephalic, Atraumatic Eyes: normal inspection, EOMI Neck: supple, Trachea midline Respiratory/Chest: Significantly decreased breath sounds, CTA, No accessory muscle use Cardiovascular: S1, S2, No murmur Abdomen/GI:Soft, Non tender, Bowel sounds present Extremities/Musculoskeletal:normal inspection, no edema Neurologic/Psych:AAOX3, grossly no focal neurological deficits Skin: normal color, warm Results & Data Results & Data Vital Signs (Past 12 Hours) Vital Signs Temp Pulse Resp BP Pulse Ox O2 Del Method O2 Flow Rate 02/07/23 13:28 82 18 100 Nasal Cannula 5 02/07/23 08:02 Nasal Cannula 5 02/07/23 07:09 78 18 100 Nasal Cannula 5 02/07/23 06:19 37.1 C 86 18 111/64 100 Nasal Cannula 5
[2023-02-07] MEDS: MoRPHine SULFATE 2 MG/ML CARP IV PRN (19:53)
[2023-02-07] MEDS: ATORVASTATIN 10 MG TAB PO SCH (20:36)
[2023-02-07] MEDS: traZODone HCL 50 MG TAB PO SCH (23:04)
[2023-02-08] MEDS ORDERED: SODIUM CHLORIDE 0.65% NA SOLN 45 ML (OCEAN) ONE (00:16)
[2023-02-08] MEDS: PANTOprazole 40 MG TAB PO SCH (06:20)
[2023-02-08 06:24] LABS: Hematocrit (blood only) 29.5 % (37.0-47.0); Hemoglobin 8.9 g/dl (12.0-16.0); Mean Corpuscular Hemoglobin 30.5 pg (25.0-34.0); Mean Corpuscular Hgb Conc 30.2 g/dL (32.0-36.0); Mean Platelet Volume 8.8 fL (9.4-12.4); Platelet Count 151 K/uL (130-400); RDW Coefficient of Variation 11.5 % (11.5-14.5); RDW Standard Deviation 42.1 fL (36.4-46.3); Red Blood Count 2.92 M/uL (4.20-5.40); White Blood Count 5.89 K/ul (4.8-10.8)
[2023-02-08 06:46] LABS: BUN Creatinine Ratio 34.1 (10-20); Blood Urea Nitrogen 14 mg/dl (6-23); Calcium 8.9 mg/dl (8.6-10.3); Carbon Dioxide > 45 mmol/L (21-32); Chloride 97 mmol/L (98-107); Creatinine Clr Calc Pharmacy 77.8 ml/min; Est GFR (African American) 123.9 ml/min; Est GFR (Non-African American) 106.9 ml/min; Glucose 92 mg/dl (70-99(Fasting)); Potassium 4.9 mmol/L (3.5-5.1); Sodium 141 mmol/L (136-145)
[2023-02-08] MEDS: ALBUT/IPRATROP 3MG/0.5MG NEB 3 ML VIAL NEB SCH ×2 (07:09→13:23)
[2023-02-08] MEDS: FORMOTEROL 20 MCG/2 ML VIAL INH SCH (07:09)
[2023-02-08] MEDS: BUDESONIDE 0.5 MG/2 ML VIAL (PULMICORT) INH SCH (07:09)
[2023-02-08] MEDS: GABAPENTIN 100 MG CAP PO SCH ×2 (08:44→13:34)
[2023-02-08] MEDS: guaiFENesin 600 MG TABCR PO SCH (08:44)
[2023-02-08] MEDS: MULTIVITAMIN TAB PO SCH (08:44)
[2023-02-08] MEDS: ASPIRIN 81 MG ECTAB PO SCH (08:45)
[2023-02-08] MEDS: MELOXICAM 7.5 MG TAB PO SCH (08:46)
[2023-02-08] MEDS: lisinopril 5 MG TAB PO SCH (08:50)
[2023-02-08] MEDS: traMADol HCL 50 MG TABLET PO PRN (10:20)
--- NOTE | 2023-02-08 12:41 | Hospitalist Progress Note ---
Date of Service February 08, 2023 Assessment & Plan (1) Acute exacerbation of chronic obstructive pulmonary disease: (2) Acute and chronic respiratory failure with hypercapnia: (3) Shortness of breath: (4) Protein malnutrition: (5) DM II (diabetes mellitus, type II), controlled: (6) Pulmonary emphysema: Plan: Patient is a 67 yr female with history of severe COPD who presented with increasing shortness of breath. Pt is found to be in acute on chronic hypercar bic respiratory failure with a pH of 7.3 and a PCO2 of 99. Acute on chronic COPD exacerbation Acute on chronic respiratory failure with hypoxia, hypercarbia --CXR:Emphysema without acute process. --last ABG reviewed; pH of 7.43 with PCO2 of 72. -Continue budesonide and formoterol nebs along with DuoNebs -Patient declined steroids given intolerance (reports delirium with use) -Patient interested in hospice care. She currently lives at home and reports increasing difficulty and carry out her activities of daily living. --Started on trial of low-dose gabapentin given bilateral lower extremity pain for possible Neuropathy As per prior provider ordered morphine as needed for dyspnea. Patient willing to trial low-dose morphine to see if that will help with dyspnea. Palliative care consulted Plan to Transition to hospice eventually as outpatient per patient request Plan to discharge home today GERD Continue PPI Mood disorder Continue home medications Hypertension Hyperlipidemia Continue home medications H/O DM II Diet Controlled CODE STATUS: DNR/DNI Disposition Plan to transition to hospice eventually at Home Admission and Anticipated Discharge Date Admission Date: February 03, 2023 Subjective Patient is seen and examined at bedside No new complaints Prefers to be discharged home to be transition to hospice eventually Still has peripheral neuropathic pain Has chronic intermittent chronic cough, dyspnea--unchanged Denies any chest pain, dizziness, nausea, vomiting, abdominal pain Review of Systems Review of Systems: All systems reviewed & are unremarkable except as noted in Subjective Physical Exam Physical Exam: Physical Exam: Vitals signs as noted above General Appearance: Thin, frail, chronically appearing, no apparent distress Head: normocephalic, Atraumatic Eyes: normal inspection, EOMI Neck: supple, Trachea midline Respiratory/Chest: Significantly decreased breath sounds, CTA, No accessory muscle use Cardiovascular: S1, S2, No murmur Abdomen/GI:Soft, Non tender, Bowel sounds present Extremities/Musculoskeletal:normal inspection, no edema Neurologic/Psych:AAOX3, grossly no focal neurological deficits Skin: normal color, warm Results & Data Results & Data Vital Signs (Past 12 Hours) Vital Signs Temp Pulse Resp BP Pulse Ox O2 Del Method O2 Flow Rate 02/08/23 08:41 93 H 126/70 02/08/23 08:05 37.5 C 88 18 121/73 100 Nasal Cannula 4.5 02/08/23 07:37 Nasal Cannula 02/08/23 07:11 89 20 94 Nasal Cannula 4 02/08/23 02:56 16 3 Laboratory Results Short CBC 02/08/23 Range/Units 06:00 WBC 5.89 (4.8-10.8) K/ul Hgb 8.9 L (12.0-16.0) g/dl Hct 29.5 L (37.0-47.0) % Plt Count 151 (130-400) K/uL BMP 02/08/23 06:00 Sodium 141 Potassium 4.9 Chloride 97 L Carbon Dioxide > 45 H* BUN 14 Creatinine 0.41 L Glucose 92 Calcium 8.9
--- NOTE | 2023-02-08 12:48 | Discharge Summary ---
Date of Service February 08, 2023 Admission HPI Per Admitting Provider This is a 67-year-old female with PMHx of DM II, diabetic polyneuropathy, Severe COPD, chronic rhinitis, hypertension, reflux esophagitis, depression, tobacco abuse presents with respiratory distress and COPD exacerbation. She was recently hospitalized for similar complaints; 01/10/2023 to 01/14/2023 where she was treated for acute on chronic hypercarbic respiratory failure as well as a COPD exacerbation with known history of severe emphysema. At baseline the patient wears 6 L of O2 at all times, but in the past few days she has turned it up to 10 L because of feeling increasingly short of breath. She presents to the ER with worsening shortness of breath x1 day. She is coughing sometimes yellow sputum production, denies any hemoptysis. She denies any fevers but feels chilled today. She feels a fullness in her right ear and feels slightly dizzy. She also mentions having increased numbness and tingling down into both of her legs, she has felt weaker in the past few days, having difficulty walking on her own, and stepdaughter who is present at bedside has been assisting her with ADLs. She denies any known, sick contacts, no changes in her regimen with inhalers. She has still has been smoking 1 to 3 cigarettes/day, specifically after she eats. She is drinking 1 protein shake per day. Denies any abdominal complaints but notes that she continues to lose weight unintentionally, and is weighing 75 pounds today on admission. Today she is in acute hypercarbic respiratory failure with a pH of 7.3 and a PCO2 of 99 and was placed on Bipap in the ER. Admission Exam Per Admitting Provider General: awake, alert, no apparent distress, cachectic, appears older than stated age Head: Normocephalic, atraumatic ENT: PERRL, EOMI, Left ear with dark wax inside on otoscope eval, TM not able to be visualized, Right ear with pearly muhammad TM, no erythema, no fluid level. On bipap so pharynx is not assessed Chest: Diminished breath sounds throughout, on bipap, barrel chested Cardiac: Sinus tach with HR in the 90s, no murmur, no JVD, normal peripheral pulses, good capillary refill Abdominal: NABS x 4 quadrants, soft, nondistended, nontender to palpation, no rebound or guarding Extremities: Normal inspection, no peripheral edema or erythema, calfs nontender to palpation Psych: Normal mood and affect Neuro: AAO x 3, strength intact bilaterally and rated 5/5, no motor deficits, speech is clear, no peripheral sensory deficits, sensation to light and sharp touch intact in bilateral lower legs Principal Diagnosis Acute on chronic COPD exacerbation Acute on chronic respiratory failure with hypoxia, hypercarbia Discharge Data Allergies Allergy/AdvReac Type Severity Reaction Status Date / Time prednisone AdvReac Intermediate Confusion/PSYCH Verified 02/03/23 15:03 COMPLICATIONS PER [facility] MED LIST Consultations 02/03/23 14:43 ED Decision to Admit Stat 02/03/23 15:44 Consult Palliative Care Routine 02/03/23 17:48 Consult Pulmonology Routine 02/04/23 09:06 Consult Palliative Care Routine Procedures Performed Laboratory Results WBC 5.89 K/ul (4.8-10.8) 02/08/23 06:00 RBC 2.92 M/uL (4.20-5.40) L 02/08/23 06:00 Hgb 8.9 g/dl (12.0-16.0) L 02/08/23 06:00 Hct 29.5 % (37.0-47.0) L 02/08/23 06:00 MCV 101.0 fL (80.0-100.0) H 02/08/23 06:00 MCH 30.5 pg (25.0-34.0) 02/08/23 06:00 MCHC 30.2 g/dL (32.0-36.0) L 02/08/23 06:00 RDW Std Deviation 42.1 fL (36.4-46.3) 02/08/23 06:00 RDW Coeff of Patricia 11.5 % (11.5-14.5) 02/08/23 06:00 Plt Count 151 K/uL (130-400) 02/08/23 06:00 MPV 8.8 fL (9.4-12.4) L 02/08/23 06:00 Immature Gran % (Auto) 0.4 % 02/03/23 13:28 Neut % (Auto) 84.8 % 02/03/23 13:28 Lymph % (Auto) 7.5 % 02/03/23 13:28 [place] % (Auto) 6.2 % 02/03/23 13:28 Eos % (Auto) 0.9 % 02/03/23 13:28 Baso % (Auto) 0.2 % 02/03/23 13:28 Neut # (Auto) 7.83 K/uL (1.40-6.50) H 02/03/23 13:28 Lymph # (Auto) 0.69 K/uL (1.2-3.4) L 02/03/23 13:28 [place] # (Auto) 0.57 K/uL (0.11-0.59) 02/03/23 13:28 Eos # (Auto) 0.08 K/uL (0-0.50) 02/03/23 13: Baso # (Auto) 0.02 K/uL (0-0.2) 02/03/23 13: Immature Gran # (Auto) 0.04 K/uL (0.01-0.20) 02/03/23 13: PT 10.2 Seconds (9.0-12.0) 02/03/23 13:28 INR 0.9 (0.9-1.1) 02/03/23 13: APTT 23.4 Seconds (21.0-31.0) 02/03/23 13: PTT Ratio 0.8 02/03/23 13:28 ABG pH 7.43 (7.35-7.45) 02/03/23 18:19 ABG pCO2 72 mmHg (35-46) H 02/03/23 18:19 ABG pO2 126 mmHg (80-95) H 02/03/23 18:19 ABG HCO3 48 mmol/L (19-24) H 02/03/23 18:19 ABG O2 Saturation 99.8 % (90-95) H 02/03/23 18:19 ABG Base Excess 19.3 mEq/L (-9-1.8) H 02/03/23 18:19 Mark Test Pos (Pos) 02/03/23 18:19 VBG pH 7.31 (7.36-7.41) L 02/03/23 13:28 VBG pCO2 99 mmHg (38-50) H 02/03/23 13:28 VBG pO2 59 mmHg 02/03/23 13:28 VBG HCO3 50 mmol/L 02/03/23 13:28 VBG O2 Saturation 89.8 % 02/03/23 13:28 VBG Base Excess 18.3 mEq/L 02/03/23 13:28 Oxygen Given BiPAP 40 02/03/23 18:19 Sodium 141 mmol/L (136-145) 02/08/23 06:00 Potassium 4.9 mmol/L (3.5-5.1) 02/08/23 06:00 Chloride 97 mmol/L (98-107) L 02/08/23 06:00 Carbon Dioxide > 45 mmol/L (21-32) H* 02/08/23 06:00 Anion Gap TNP 02/08/23 06:00 BUN 14 mg/dl (6-23) 02/08/23 06:00 Creatinine 0.41 mg/dl (0.6-1.2) L 02/08/23 06:00 Est Cr Clr Drug Dosing 77.8 ml/min 02/08/23 06:00 Est GFR ( Amer) 123.9 ml/min 02/08/23 06:00 Est GFR (Non-Af Amer) 106.9 ml/min 02/08/23 06:00 BUN/Creatinine Ratio 34.1 (10-20) H 02/08/23 06:00 Glucose 92 mg/dl (70-99(Fasting)) 02/08/23 06:00 Calcium 8.9 mg/dl (8.6-10.3) 02/08/23 06:00 Magnesium 2.2 mg/dl (1.7-2.4) 02/04/23 06:47 Transferrin 251 mg/dl (200-360) 02/03/23 13:28 Total Bilirubin 0.3 mg/dl (0.2-1.0) 02/03/23 13:28 AST 28 U/L (13-39) 02/03/23 13:28 ALT 24 U/L (7-52) 02/03/23 13:28 Alkaline Phosphatase 88 U/L (34-104) 02/03/23 13:28 Troponin I High Sens 19.4 pg/ml (0-14) H 02/03/23 13:28 B-Natriuretic Peptide 33 pg/ml (0-100) 02/03/23 13:28 Total Protein 6.7 gm/dl (6.0-8.3) 02/03/23 13:28 Albumin 4.1 gm/dl (3.4-5.0) 02/03/23 13:28 Globulin 2.6 gm/dl (2.5-4.0) 02/03/23 13:28 Albumin/Globulin Ratio 1.6 (0.9-2) 02/03/23 13:28 Vitamin B12 703 pg/ml (180-914) 02/03/23 13:28 Folate > 22.30 ng/ml (>5.38) 02/03/23 13:28 TSH 0.545 uIu/ml (0.300-4.500) 02/03/23 13:28 SARS-CoV-2, RNA, NAAT NEGATIVE (NEGATIVE) 02/03/23 13:50 Impressions Chest X-Ray 02/03/23 13:08 XR chest 1V portable HISTORY: 67 years-old Female Chest pain, nonspecific COMPARISON: 01/10/2023 TECHNIQUE: AP view of the chest FINDINGS: Cardiomediastinal and hilar silhouettes are unchanged. Severe emphysema. No pneumothorax, pleural effusion, airspace consolidation or pulmonary edema. Nipple shadow projects over the left lung base. Unchanged right apical nodular density, likely pleural parenchymal scarring. Cholecystectomy. Degenerative changes of the shoulders and spine. 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 IMPRESSION: Emphysema without acute process. ACT 112: Negative or not required by law. The above report was generated using voice recognition software. It may contain grammatical, syntax or spelling errors. Electronically signed by: Wilmer Landrum M.D. 02/03/2023 1:57 PM Hospital Course (1) Acute exacerbation of chronic obstructive pulmonary disease: (2) Acute and chronic respiratory failure with hypercapnia: (3) Shortness of breath: (4) Protein malnutrition: (5) DM II (diabetes mellitus, type II), controlled: (6) Pulmonary emphysema: Patient is a 67 yr female with history of severe COPD who presented with increasing shortness of breath. Pt is found to be in acute on chronic hypercarbic respiratory failure with a pH of 7.3 and a PCO2 of 99. Acute on chronic COPD exacerbation Acute on chronic respiratory failure with hypoxia, hypercarbia --CXR:Emphysema without acute process. --last ABG reviewed; pH of 7.43 with PCO2 of 72. -Continue budesonide and formoterol nebs along with DuoNebs -Patient declined steroids given intolerance (reports delirium with use) -Patient interested in hospice care. She currently lives at home and reports increasing difficulty and carry out her activities of daily living. --Started on trial of low-dose gabapentin given bilateral lower extremity pain for possible Neuropathy As per prior provider ordered morphine as needed for dyspnea. Patient willing to trial low-dose morphine to see if that will help with dyspnea. Palliative care consulted Plan to Transition to hospice eventually as outpatient per patient request Plan to discharge home today GERD Continue PPI Mood disorder Continue home medications Hypertension Hyperlipidemia Continue home medications H/O DM II Diet Controlled CODE STATUS: DNR/DNI Disposition Plan to transition to hospice eventually at Home Total Time Total Time Spent Total Time Spent (In Minutes): 52 minutes Discharge Plan Discharge Items Patient Disposition: Home - Self-Care Reason For Visit: COPD EXACERBATION Discharge Diagnosis: Acute on chronic COPD exacerbation Acute on chronic respiratory failure with hypoxia, hypercarbia Activity: Resume your previous activity Exercise/Sports: Wait until after follow-up appointment Non-emergency contact: Primary Care Provider Call non-emergency contact if: you have any medication questions, your symptoms worsen, your pain is concerning for you and you have a fever Follow-up/Referrals: Damir De La Cruz MD [Primary Care Provider] - Diet: Heart Healthy Addtl Attending Provider Instructions: Follow-up with your primary care physician Dr. De La Cruz in 1 week Pending Studies at Discharge: No Stand-Alone Forms: My Three Ring, Smoking Cessation Medications and DC Order Prescriptions: New gabapentin 100 mg Capsule 100 mg PO TID Qty: 90 0RF Continued (DME) Portable Oxygen Misc See Rx Instructions .Route Qty: 1 0RF Rx Instructions: Oxygen concentrator with portability 3-4LPM via n/c with exertion to maintain O2 sats 88-93% with oxygen conserving device. DEONDRE:99 aspirin [Adult Low Dose Aspirin] 81 mg tablet,delayed release (DR/EC) 81 mg PO QAM atorvastatin 10 mg tablet 10 mg PO HS trazodone 50 mg tablet 75 mg PO HS Rx Instructions: MAY INCREASE TO 2 TABS IN NEEDED FOR SLEEP lisinopril 5 mg tablet 5 mg PO QAM loratadine 10 mg capsule 10 mg PO DAILY PRN (Reason: allergies) meloxicam 15 mg tablet 15 mg PO QAM albuterol sulfate [Ventolin HFA] 90 mcg/actuation HFA aerosol inhaler 2 puffs INH Q4H PRN (Reason: Shortness Of Breath) azithromycin 250 mg tablet 250 mg PO 3XWK Rx Instructions: I tablet daily On Wednesday, Wednesday and Wednesday only multivitamin Tablet 1 tab PO DAILY vitamin B complex Capsule 1 cap PO DAILY esomeprazole magnesium 20 mg Capsule,Delayed Release(Dr/Ec) 20 mg PO DAILYBB tramadol 50 mg tablet 50 mg PO Q6H PRN (Reason: Pain, Moderate) zinc sulfate 50 mg zinc (220 mg) Tablet 50 mg PO DAILY guaifenesin [Mucinex] 600 mg Tablet Extended Release 12hr 600 mg PO BID budesonide 0.5 mg/2 mL suspension for nebulization 0.5 mg inhalation BID 30 Days Qty: 120 1RF formoterol fumarate [Perforomist] 20 mcg/2 mL Solution For Nebulization 20 mcg inhalation BIDR Qty: 120 1RF ipratropium-albuterol 0.5 mg-3 mg(2.5 mg base)/3 mL Solution For Nebulization 3 ml NEB Q6H PRN (Reason: shortness of breath or wheezing) Qty: 180 1RF Spiriva Respimat 2.5 mcg/actuation mist 1 inh inhalation BID Qty: 4 1RF Discharge Orders: Discharge Order (Routine); Ordered 02/08/23 Ordered By: Arcadio Fox Admission Data Admit Date/Time: 02/03/23 14:55 Attending Provider: Arcadio Fox Admit Provider: Naomi Ledesma Primary Care Provider: Damir De La Cruz Other Providers: Gabriela Bo ; [employer] ; [facility] ; [place], ; Naomi Ledesma ; Gregor Wetzel
== END 2023-02-08 15:37 | disposition home or self-care (01) | DRG 189 ==
LOC: ED 13:06 → 2N 14:55 → SUATTDRO 14:55 → 2N 18:02 → 3E 02-06 09:20

== ENCOUNTER 2023-06-13 12:59 | Inpatient (IN) ==
--- OUTSIDE RECORDS SUMMARY | 2023-06-13 13:06 | External Medical Summary | Summary of Care ---
Author Name Unknown Organization [facility] Address [address] [place] [address] Phone [phone] Care Team Providers Care Horseradish Maker Name Role Phone Damir De La Cruz MD Primary Care Provider [phone] Reason for Visit * Reason Onset Date Comments Appointment 05/24/2023 Encounter Details Date Type Department Care Team (Late st Contact Info) Description 05/24/2023 Telephone Otolaryngology [facility] [address], [place] [id number] Services, Scheduling [address] [place] [address] Appointment Allergies Active Allergy Reactions Criticality Noted Date Comments Prednisone Psych complications 10/23/2008 intolerance documented as of this encounter (statuses as of 05/25/2023) Medications Medication Sig Dispensed Refills Start Date End Date Status LORATADINE 10 MG PO TABS One pill by mouth once a day as needed for allergies 30 Tab 5 11/09/2011 Active ASPIRIN 81 MG PO CHEWIndications:pat ient states at least 3 to 4 times a week Take by mouth. Indications: patient states at least 3 to 4 times a week 100 Tab 5 06/14/2013 Active oxygen GAS Use 4-5 L/min(Oxygen) as directed. 0 Active guaifenesin ER (MUCINEX) 600 MG [id number]:TOP LIFT COMPRESSOR D, severe (HCC),Chronic cough Take 1 Tab by mouth 2 times a day. 60 Tab 5 05/03/2019 Active Zinc Sulfate 220 (50 Zn) MG Oral Capsule Take 1 Capsule by mouth in the morning. 0 Active Multi-Day Oral Tablet Take 1 Tab by mouth daily. 0 Active Spiriva HandiHaler 18 MCG Inhalation Capsule (tiotropium bromide)Indications :COPD, severity to be determined (HCC) Inhale 1 Capsule (2 Puffs) in the morning by mouth. For inhaler only, do not swallow.. 90 Capsule 3 07/30/2021 Active Additional Information Patient taking differently:1 Capsule Inhalation Daily(AM), For inhaler only, do not swallow.,Indications: COPD, Reported on 01/12/2023 Azithromycin 250 MG Oral Tablet (Zithromax Z-Miller)Indications:C OPD, severe (HCC) Take two tablets by mouth on first day, then 1 tablet daily until gone 6 Tablet 0 11/11/2021 Active Additional Information Patient taking differently: 250 mg, Takes 3 times a week, Indications: bronchitis, Reported on 01/12/2023 Formoterol Fumarate 20 MCG/2ML Inhalation Nebulization SolutionIndications :COPD Inhale by mouth 2 times a day . 0 Active Atorvastatin Calcium 10 MG Oral Tablet (Lipitor)Indication s:Dyslipidemia, goal LDL below 100 TAKE ONE TABLET BY MOUTH EVERY NIGHT AT BEDTIME 90 Tablet 3 07/21/2022 Active Lisinopril 5 MG Oral Tablet (Prinivil)Indicatio ns:Type 2 diabetes mellitus with diabetic nephropathy, without long-term current use of insulin ([facility]) Take 1 Tablet by mouth in the morning. 90 Tablet 3 07/21/2022 Active Acetaminophen 325 MG Oral Tablet Take 1 Tablet by mouth every 6 hours as needed. 0 Active Budesonide 0.5 MG/2ML Inhalation Suspension (Pulmicort) inhale one vial (0.5 mg) via nebulizer twice daily 360 mL 11 01/06/2023 Active Ipratropium-Albuter ol 0.5-2.5 (3) MG/3ML Inhalation Solution (Duoneb) Inhale 3 mL by mouth every 6 hours as needed. 0 Active Lansoprazole 15 MG Oral Capsule Delayed Release (Prevacid) Take 1 Capsule by mouth in the morning. 0 Active Docusate Sodium 100 MG Oral Capsule (Colace) Take 1 Capsule by mouth every afternoon. 0 Active traZODone HCl 50 MG Oral Tablet (Desyrel) Take 1.5 Tablets by mouth at bedtime. May increase to 2 tab as tolerated or needed for insomnia 180 Tablet 0 03/16/2023 Active Albuterol Sulfate HFA 108 (90 Base) MCG/ACT Inhalation Aerosol Solution Inhale 2 Puffs by mouth every 4 hours as needed for Shortness of Breath. 18 g 2 03/16/2023 Active Arformoterol Tartrate 15 MCG/2ML Inhalation Nebulization Solution (Brovana) Inhale 1 vial (15 mcg) by mouth in the morning and before bedtime. 360 mL 3 04/21/2023 Active Gabapentin 100 MG Oral Capsule (Neurontin) Take 1 Capsule by mouth at bedtime. 90 Capsule 3 04/29/2023 Active documented as of this encounter (statuses as of 05/25/2023) Active Problems Problem Noted Date Diagnosed Date Hyperlipidemia 03/25/2023 Gastroesophageal reflux disease with esophagitis 03/25/2023 Age-related osteoporosis wit hout current pathological fracture 03/25/2023 HTN, goal below 140/90 12/21/2021 Type 2 diabetes mellitus with polyneuropathy POLST (Physician Orders for Life-Sustaining Lynette tment) 06/17/2021 Controlled substance agreement signed 08/12/2016 COPD, severe 11/12/2011 DM type 2 causing renal disease 11/04/2009 Chronic rhinitis 08/22/2002 Tobacco use disorder 12/07/2000 Reflux esophagitis ADJ DISORDER W/DEPRES MOOD Neuropathy documented as of this encounter (statuses as of 05/25/2023) Resolved Problems Problem Noted Date Diagnosed Date Resolved Date Depression, unspecified 03/25/202303/06 Type 2 diabetes mellitus wit h hemoglobin A1c goal of less than 7.0% 08/29/2013 06/09/2021 Overview: ICD-10 update of inactive term Duplicate COPD, moderate 05/14/2011 11/12/2011 Dysfunction of eustachian tube 07/26/2007 08/12/2017 Otalgia 07/26/2007 08/12/2017 ADVANCE DIRECTIVE INFORMATION 05/11/2005 08/12/2017 Overview: No, Advance Directive brochure given to patient. Hydronephrosis 02/17/2001 05/12/2018 Injury of hand 08/11/2000 08/12/2017 CHR [employer]WAY [employer]STRUCT NEC 03/17/200005/05 Hematuria 11/20/1999 06/12/2020 Overview: ICD-10 update of inactive term documented as of this encounter (statuses as of 05/25/2023) Immunizations Name Administration Dates Next Due COVID-19 mRNA, LNP-s, No Pre serve, 2-Dose Series (Pfizer) 10/03/2020,09/12/2020 PPD 05/11/2005, 3,03/30/2001,08/1998 Pneumococcal Polysaccharide PPV23 (Pneumovax) 10/23/2008 TD - Tetanus/Diptheria (ADULT) 08/12/2007,1997 TDAP (age 10 and older)(Boostrix) 11/15/2012 11/15/2022 documented as of this encounter Social History Tobacco Use Types Packs/Day Years Used Date Smoking Tobacco: Former Cigarettes 2 25 Q uit: 01/26/2023 Smokeless Tobacco: Never Comments:tried to quit with patches 1989 Alcohol Use Standard Drinks/Week Comments Not Currently 0 (1 standard drink = 0.6 oz pur e alcohol) rare PHQ-2 Answer Date Recorded PHQ-2 Score 0 05/03/2019 Hunger Vital Sign Answer Date Recorded Within the past 12 months, y ou worried that your food would run out before you got the money to buy more. Never true 01/16/20 23 Within the past 12 months, t he food you bought just didn't last and you didn't have money to get more. Never true 01/15/2023 Sex and Gender Information Value Date Recorded Sex Assigned at Not on file Gender Identity Not on file Sexual Orientation Straight 12/07/2019 10 :47 AM EDT Job Start Date Occupation Industry Not on file Not on file Not on file documented as of this encounter Miscellaneous Notes * Telephone Encounter - Kenya Caldwell - 05/25/2023 8:12 AM EST Called pt. LMOM for pt to return call. Kenya Caldwell * Telephone Encounter - Alyssa Barrientos OSA - 05/25/2023 8:10 AM EST Left message to call ENT back Alyssa * Telephone Encounter - Gina Rey OSA - 05/24/2023 2:17 PM EST Pt called in to schedule Audio/ENT referral. Pt wants to be seen in [place]. Please advise, date and time pt can be reached at [phone] documented in this encounter Plan of Treatment Upcoming Encounters Date Type Department Care Team (Late st Contact Info) Description 05/31/2023 3:00 PM EST Home Visit [facility] [address] [address] [place] Campbell PA-C [address] [phone] 07/09/2023 2:30 PM EST Home Visit [facility] [address] [address] Brinda Gómez RN [address] [address] Health Maintenance Due Date Last Done Comments Alpha-1 Antitrypsin 10/16/1973 Hepatitis C Screening 10/16/1973 Cologuard 10/16/2000 Colonoscopy 10/16/2000 Sigmoidoscopy 10/16/2000 Zoster Vaccines (1 of 2) 10/16/2005 Pneumococcal Vaccine: 65+ Years (2 - PCV) 10/23/2009 10/23/2008 Hepatitis B (1 of 3 - Risk 3-dose series) 2015 Colorectal Cancer Screening 07/23/2016 Fecal Occult Blood Test 07/23/2016 07/23/2015 Depression Screening 05/03/2020 05/03/2019 Diabetic Foot Exam 05/03/2020 05/03/2019, 1 07/12/2017, 08/12/2017, Additional history exists Mammogram 06/11/2021 06/11/2020, 05/06, 05/25/2018, Additional history exists Diabetic Eye Exam 09/05/2021 09/05/2020, , 06/11/2016, Additional history exists DXA Scan 05/28/2022 05/28/2020, 08/2013, 09/12/2010, Additional history exists DTaP,Tdap,and Td Vaccines (2 - Td or Tdap) 11/15/2022 11/15/2012, 08/12/2007, 06/10/1998 HbA1c 12/14/2022 06/15/2022, 01/02, 12/07/2019, Additional history exists COVID-19 Vaccine ( season) 2023 10/03/2020, 09/12/2020 Influenza Vaccine (FLU shot) (#1) 2023 *BISPHONATE OR OTHER ACCEPTABLE MEDICATION NEEDED FOR OSTEOPOROSIS (REFER TO SMARTSET #1146) 03/31/2023 Albumin/Creatinine Ratio 06/15/2023 022, 12/07/2019, 05/08/2019, Additional history exists GFR 06/15/2023 06/15/2022, 01/02, 12/07/2019, Additional history exists O2 ASSESSMENT COMPLETED IN PAST YEAR FOR COPD 05/24/2024 05/24/2023 Lipid Panel 01/13/2026 01/13/2021, 10/2019, 02/09/2018, Additional history exists Pap Smear Discontinued 08/12/2016, 02/2017, 11/15/2012, Additional history exists VITAMIN D LEVEL ONCE IN A LIFETIME-USE SMARTSET# [id number] Completed 05/08/2019, 05/27/2012, 11/03/2010 LUNG CANCER SCREENING - USE SMARTSET 44403 Completed 05/17/2019, 06/30/2017, 09/12/2015 GARDASIL-HPV IMMUNIZATION SERIES Aged Out No longer eligible based on patient's age to complete this topic MENINGOCOCCAL (MENACTRA/MENVEO) Aged Out No longer eligible based on patient's age to complete this topic documented as of this encounter Medical Devices Not on filedocumented as of this encounter Advance Directives Documents on File Type Date Recorded Patient Tank Storage Supervisor Expl anation POLST 02/04/2023 [place] OR DERS FOR LIFE-SUSTAINING TREATMENT POLST 06/17/2021 [place] DERS FOR LIFE-SUSTAINING TREATMENT Care Teams Horseradish Maker Relationship Specialty Start Date End Date Damir De La Cruz MD [address] [place] [address] PCP - General 04/04/00 documented as of this encounter
--- OUTSIDE RECORDS SUMMARY | 2023-06-13 13:06 | External Medical Summary | Summary of Care ---
Author Name Unknown Organization [facility] Address [address] [place] [address] Phone [phone] Care Team Providers Care Brick Setter Name Role Phone Damir De La Cruz MD Primary Care Provider +1- [phone] Reason for Visit * Reason Comments [facility]: Maintenance Encounter Details Date Type Department Care Team (Late st Contact Info) Description 05/24/2023 2:00 PM EST [facility] Visit [facility] [address] [place] [address] Brinda Gómez, RN [address] [facility] [address] Allergies Active Allergy Reactions Criticality Noted Date Comments Prednisone Psych complications 10/23/2008 intolerance documented as of this encounter (statuses as of 05/24/2023) Medications Medication Sig Dispensed Refills Start Date [...] 0 Active guaifenesin ER (MUCINEX) 600 MG [id number]:INSURANCE BILLER D, severe (HCC),Chronic cough Take 1 Tab [...] nephropathy, without long-term current use of insulin (HCC) Take 1 Tablet by mouth in the [...] at bedtime. 90 Capsule 3 04/29/2023 Active Morphine Sulfate (Concentrate) 100 MG/5ML Oral Solution Take 0.5 mL by mouth every 4 hours as needed (shortness of breath). 30 mL 0 05/04/2023 Active documented as of this encounter (statuses as of 05/24/2023) Active Problems Problem Noted Date Diagnosed Date Hyperlipidemia 03/25/2023 Gastroesophageal reflux disease with esophagitis 03/25/2023 Age-related osteoporosis wit randall current pathological fracture 03/25/2023 HTN, goal below 140/90 12/21/2021 Type 2 diabetes mellitus with polyneuropathy POLST (Physician Orders for Life-Sustaining Lynette tment) 06/17/2021 Controlled substance agreement signed 08/12/2016 COPD, severe 11/12/2011 DM type 2 causing renal disease 11/04/2009 Chronic rhinitis 08/22/2002 Tobacco use disorder 12/07/2000 Reflux esophagitis ADJ DISORDER W/DEPRES MOOD Neuropathy documented as of this encounter (statuses as of 05/24/2023) Resolved Problems Problem Noted Date Diagnosed Date [...] as of this encounter (statuses as of 05/24/2023) Immunizations Name Administration Dates Next Due COVID-19 mRNA, LNP-s, No Pre serve, 2-Dose Series (Pfizer) 10/03/2020,09/12/2020 Pneumococcal Polysaccharide PPV23 (Pneumovax) TD - Tetanus/Diptheria (ADULT) 08/12/2007 TDAP (age 10 and older)(Boostrix) 11/15/2012 11/15/2022 [...] on file documented as of this encounter Last Filed Vital Signs Vital Sign Reading Time Taken Comments Blood Pressure 106/62 05/24/2023 2:28 PM EST Pulse 100 05/24/2023 2:28 PM EST Temperature 36.9 C (98.5 F) 05/24/2023 2 :28 PM EST Respiratory Rate 22 05/24/2023 2:28 PM EST Oxygen Saturation 99% 05/24/2023 2:2 8 PM EST o2 on at 6 l/min via nc Inhaled Oxygen Concentration - - Weight - - Height - - Body Mass Index - - documented in this encounter Progress Notes * Brinda Gómez, RN - 05/24/2023 2:00 PM EST [facility] [employer] Visit Date: 05/24/2023 Time: 2:16 PM Name: Iris Goodwin : 1955 Current Concerns: Pt seen for return RNCM visit Has been referred to ENT for ongoing issues with pounding/pulsating in right ear She is waiting to hear back from them about an appt She reports she stopped taking the z-pack because a side effect is hearing problems Right ear drum has moderate cerumen Able to visualize half of tympanic membrane Do not notice any redness or inflammation Unable to note if there is fluid behind that Pt has been taking an average of 0.3ml of morphine several times a day - in need of a refill - TE sent to provider Physical Exam: BP 106/62 | Pulse 100 | Temp 36.9 C (98.5 F) | Resp 22 | LMP 07/22/2004 | SpO2 99% Comment: o2 on at 6 l/min via nc Pain 0 Physical Exam Constitutional: Appearance: She is ill-appearing. Cardiovascular: Rate and Rhythm: Normal rate and regular rhythm. Pulses: Normal pulses. Heart sounds: Normal heart sounds. Pulmonary: Effort: Pulmonary effort is normal. Comments: Lungs diminished throughout Skin: General: Skin is warm and dry. Neurological: Mental Status: She is alert and oriented to person, place, and time. Problems/Symptoms: Review of Systems Constitutional: Negative. HENT: Pounding/pulsating in right ear Respiratory: Positive for cough, chest tightness and shortness of breath. Cardiovascular: Negative. Gastrointestinal: Negative. Genitourinary: Negative. Musculoskeletal: Positive for arthralgias. Neurological: Negative. Hematological: Negative. Psychiatric/Behavioral: Negative. Medication Reconciliation: (See medication list) Does patient take medications as ordered: Yes Patient Well Being: PHQ2/9: No questionnaires available. No change in living conditions Denies falls [facility]-10 Completed this Visit: No. Routine visit and No falls since last visit Advanced Care Planning: POLST. Reinforcement/Education: COPD: Pt instructed to: -Call with increased SOB, wheezing, chest tightness, increased cough, increased sputum with change in color or consistency and fever. -Wash hands often -Drink plenty of fluids -Use inhalers as directed, do not stop or skip doses -Avoid stress -Rest when tired or SOB -Avoid triggers -Clean inhalers once a week Educated on home safety: Create a fall proof home Clear floors of clutter, loose wires, throw rugs, and cords. Make sure halls, stairways, and entrances are well lit. Install a nightlight in your bedroom, hallway and bathroom. Install grab bars or handrails in the bathroom and on stairs. Use a non-skid tub/shower mat. Avoid climbing on a chair; instead use a step stool with a high handrail. Keep sidewalks and steps in good repair Keep steps and sidewalks free of snow and ice. Using aids to support and prevent falls If you have poor balance or have fallen in the past, consider additional support such as a cane or walker. Use a cane with good support and that is the proper length for you. Use a walker if a cane doesnt provide enough support. Avoid medications that increase the risk of falling by causing dizziness, change in sensation or slowed reflexes. Certain medicines may cause falls - blood pressure pills, heart medicines, water pills, or sleepingpills. Be sure to understand each medicine that you are taking and any side effects that may occur. Improve your balance and flexibility with muscle strengthening exercises. Ask your health care provider for some exercises that will be right for you. Reinforced safety education and fall prevention. and Reinforced medication regimen. Timing., Dosing., and Purspose. Treatment/Plan: Continued meds as prescribed/reviewed Dr. preston is pulmonary thru [facility] Rescue inhaler of albuterol prn Neb txs as prescribed - be sure to clean neb supplies Oxygen at 6-7 l/min via nc continuously In paid cg program - gets reimbursement from [facility] - cg three times a week (8hrs each week) Uses [employer] NIV overnight Morphine sulfate prn dyspnea- TE sent to provider for refill Palliative involved Senna for constipation F/u with ENT for pulsating in right ear Home Interventions Provided: Home Intervention: Other; eval Reinforced current Plan of Care, including self-management and medication regimen Patient's 'Red Flags': Can't catch breath Increased fatigue/weakness Chest feels tight Patient Needs to Remember: Call [facility] at with any new or worsening health concerns or problems, red flag symptoms. Referrals Needed: Other none Follow Up: Is there cellular connectivity/connectivity in the home? Yes Does the patient have internet in the home? Yes Patient encouraged to call the intake phone number for all urgent but not emergent issues. Is the patient new to [facility] within the last 30 days? No, Assess appropriateness for upcoming telehealth visits. Cancel telehealth visits & schedule home visit with care steamer blocker(s)as indicated. Provider is in agreement with Plan of Care: Yes Scheduled to follow up with patient in 3-4 weeks with provider, 3 weeks after with RNCM. Brinda Gómez RN 05/24/2023 2:16 PM documented in this encounter Plan of Treatment Upcoming Encounters Date Type Department Care Team (Late st Contact Info) Description 07/09/2023 2:30 PM EST [facility] Visit [facility], [facility] [address] [place] [address] Brinda Gómez RN [address] [facility] [place] [address] Health Maintenance Due Date Last Done Comments [...] ASSESSMENT COMPLETED IN PAST YEAR FOR COPD 05/04/2024 05/04/2023 Lipid Panel 01/13/2026 01/13/2021, 10/2019, 02/09/2018, Additional history exists Pap Smear Discontinued 08/12/2016, 02/2017, 11/15/2012, Additional history exists VITAMIN D LEVEL ONCE IN A LIFETIME-USE SMARTSET# [id number] Completed 05/08/2019, 05/27/2012, 11/03/2010 LUNG CANCER SCREENING - USE SMARTSET [id number] Completed 05/17/2019, 06/30/2017, 09/12/2015 GARDASIL-HPV IMMUNIZATION SERIES Aged Out No longer eligible based on patient's age to complete this topic MENINGOCOCCAL (MENACTRA/MENVEO) Aged Out No longer eligible based on patient's age to complete this topic documented as of this encounter Medical Devices Not on filedocumented as of this encounter Advance Directives Documents on File Type Date Recorded Patient Marine Chronometer Assembler Expl anation POLST 02/04/2023 [place] OR DERS FOR LIFE-SUSTAINING TREATMENT POLST 06/17/2021 [place] OR DERS FOR LIFE-SUSTAINING TREATMENT Care Teams Brick Setter Relationship Specialty Start Date End Date Damir De La Cruz MD [address] [place] [address] PCP - General 04/04/00 documented as of this encounter"
--- OUTSIDE RECORDS SUMMARY | 2023-06-13 13:06 | External Medical Summary | Summary of Care ---
Author Name Unknown Organization [facility] Address [address] [place] [address] Phone [phone] Care Team Providers Care Construction Engineering Manager Name Role Phone Damir De La Cruz MD Primary Care Provider +1- [phone] Reason for Visit * Reason Onset Date Comments Appointment 05/24/2023 Encounter Details Date Type Department Care Team (Late st Contact Info) Description 05/24/2023 Telephone Otolaryngology [facility] [address] [place], [place] [id number] Services, Scheduling [address] [place] [address] Appointment Allergies Active Allergy Reactions Criticality Noted [...] 0 Active guaifenesin ER (MUCINEX) 600 MG [id number]:HEAD NURSE D, severe (HCC),Chronic cough Take 1 Tab [...] nephropathy, without long-term current use of insulin ([facility]) Take 1 Tablet by mouth in the [...] referral. Pt wants to be seen in [place]. Please advise, date and time pt can be reached at [phone] documented in this encounter Plan of Treatment Upcoming Encounters Date Type Department Care Team (Late st Contact Info) Description 05/31/2023 3:00 PM EST [facility] [address] [place] [address] Dallas Campbell PA-C [address] [place] [address] 07/09/2023 2:30 PM EST [facility] [address] [place] [address] Brinda Gómez RN [address] [place] [address] Health Maintenance Due Date Last Done Comments [...] D LEVEL ONCE IN A LIFETIME-USE SMARTSET# [id number] Completed 05/08/2019, 05/27/2012, 11/03/2010 LUNG CANCER SCREENING - USE SMARTSET [id number] Completed 05/17/2019, 06/30/2017, 09/12/2015 GARDASIL-HPV IMMUNIZATION SERIES Aged Out No longer eligible based on patient's age to complete this topic MENINGOCOCCAL (MENACTRA/MENVEO) Aged Out No longer eligible based on patient's age to complete this topic documented as of this encounter Medical Devices Not on filedocumented as of this encounter Advance Directives Documents on File Type Date Recorded Patient Photographer'S Model Expl anation POLST 02/04/2023 [place] OR DERS FOR LIFE-SUSTAINING TREATMENT POLST 06/17/2021 [place] OR DERS FOR LIFE-SUSTAINING TREATMENT Care Teams Construction Engineering Manager Relationship Specialty Start Date End Date Damir De La Cruz MD [address] [place] [address] PCP - General 04/04/00 documented as of this encounter
--- OUTSIDE RECORDS SUMMARY | 2023-06-13 13:06 | External Medical Summary | Summary of Care ---
Author Name Unknown Organization [facility] Address [address] [place] [address] Phone [phone] Care Team Providers Care Orchardist Name Role Phone Damir De La Cruz MD Primary Care Provider +1- [phone] Reason for Visit * Reason Onset Date Comments [facility]: Maintenance 05/24/2023 Encounter Details Date Type Department Care Team (Late st Contact Info) Description 05/24/2023 Telephone [facility], [facility] [address] [place] [address] Brinda Gómez, RN [address] [facility] [place] [address] [facility]: Maintenance Allergies Active Allergy Reactions Criticality Noted Date Comments Prednisone Psych complications 10/23/2008 intolerance documented as of this encounter (statuses as of 05/31/2023) Medications Medication Sig Dispensed Refills Start Date [...] 0 Active guaifenesin ER (MUCINEX) 600 MG [id number]:HORSERADISH GRINDER D, severe (HCC),Chronic cough Take 1 Tab [...] as of this encounter (statuses as of 05/31/2023) Active Problems Problem Noted Date Diagnosed Date [...] as of this encounter (statuses as of 05/31/2023) Resolved Problems Problem Noted Date Diagnosed Date [...] as of this encounter (statuses as of 05/31/2023) Immunizations Name Administration Dates Next Due COVID-19 [...] encounter Miscellaneous Notes * Telephone Encounter - Brinda Gómez RN - 05/24/2023 2:50 PM EST Please schedule an in person home visit with Dallas Campbell for palliative care. Please have scheduled for within the next 3-4 weeks Thank you. documented in this encounter Plan of Treatment Upcoming Encounters Date Type Department Care Team (Late st Contact Info) Description 06/07/2023 2:30 PM EST Office Visit Audiology [facility] [address] [address] Fadumo Dangelo Au.D. [address] [place] [address] 06/07/2023 3:00 PM EST Office Visit Otolaryngology [facility] [address] [place] [address] Nehemiah Bo PA-C [address] [place] [address] 07/09/2023 2:30 PM EST [facility] Visit [facility] [address] [address] Brinda Gómez RN [address] [place] [address] Health Maintenance Due Date Last Done Comments [...] D LEVEL ONCE IN A LIFETIME-USE SMARTSET# [id number] Completed 05/08/2019, 05/27/2012, 11/03/2010 LUNG CANCER SCREENING - USE SMARTSET [id number] Completed 05/17/2019, 06/30/2017, 09/12/2015 GARDASIL-HPV IMMUNIZATION SERIES Aged Out No longer eligible based on patient's age to complete this topic MENINGOCOCCAL (MENACTRA/MENVEO) Aged Out No longer eligible based on patient's age to complete this topic documented as of this encounter Medical Devices Not on filedocumented as of this encounter Advance Directives Documents on File Type Date Recorded Patient Pmo Manager Expl anation POLST 02/04/2023 [place] OR DER FOR LIFE-SUSTAINING TREATMENT POLST 06/17/2021 [place] [facility] FOR LIFE-SUSTAINING TREATMENT Care Teams Orchardist Relationship Specialty Start Date End Date Oesterling, Damir R, MD [address], [place] [phone] PCP - General 04/04/00 documented as of this encounter
--- OUTSIDE RECORDS SUMMARY | 2023-06-13 13:06 | External Medical Summary | Summary of Care ---
Author Name Unknown Organization [facility] Address [address] [place] [address] Phone [phone] Care Team Providers Care Ferryboat Operator Helper Name Role Phone Damir De La Cruz MD Primary Care Provider +1- [phone] Reason for Visit * Reason Onset Date Comments [facility]: Maintenance 05/04/2023 Encounter Details Date Type Department Care Team (Late st Contact Info) Description 05/04/2023 Telephone [facility], [facility] [address] [place] [address] Brinda Gómez, RN [address] [place] [address] [facility]: Maintenance Allergies Active Allergy [...] 0 Active guaifenesin ER (MUCINEX) 600 MG [id number]:RESIDENCE LIFE COORDINATOR D, severe (HCC),Chronic cough Take 1 Tab [...] Telephone Encounter - Brinda Gómez RN - 05/04/2023 2:36 PM EDT Pt seen for home visit today She reports she has been using the Roxanol more frequently at every 4 hours as prescribed. She feels it does help her dyspnea but often feels like it wears off before she is able to get another dose. Would it be possible for her to have this dose and/or frequency increased? She will also need a new/larger bottle. Concepcionkevin Ruff [facility] is pharmacy of choice. Thank you! documented in this encounter Plan of Treatment Upcoming Encounters Date Type Department Care Team (Late st Contact Info) Description 06/07/2023 2:30 PM EST Office Visit Audiology [facility] [address] [address] Fadumo Dangelo Au.D. [address] [place] [address] 06/07/2023 3:00 PM EST Office Visit Otolaryngology [facility] [address] [address] Nehemiah Bo PA-C [address] [place] [address] 07/09/2023 2:30 PM EST Home Visit [facility] [address] [address] Brinda Gómez RN [address] [place] [address] Health Maintenance Due Date Last Done Comments [...] Additional history exists Pap Smear Discontinued 08/12/2016, 0 02/2017, 11/15/2012, Additional history exists VITAMIN D LEVEL ONCE IN A LIFETIME-USE SMARTSET# [id number] Completed 05/08/2019, 05/27/2012, 11/03/2010 LUNG CANCER SCREENING - USE SMARTSET [id number] Completed 05/17/2019, 06/30/2017, 09/12/2015 GARDASIL-HPV IMMUNIZATION SERIES Aged Out No longer eligible based on patient's age to complete this topic MENINGOCOCCAL (MENACTRA/MENVEO) Aged Out No longer eligible based on patient's age to complete this topic documented as of this encounter Medical Devices Not on filedocumented as of this encounter Advance Directives Documents on File Type Date Recorded Patient Vp Of Global Marketing Expl anation POLST 02/04/2023 [place] OR DERS FOR LIFE-SUSTAINING TREATMENT POLST 06/17/2021 [place] OR DERS FOR LIFE-SUSTAINING TREATMENT Care Teams Ferryboat Operator Helper Relationship Specialty Start Date End Date Damir De La Cruz MD [address] [place] [address] PCP - General 04/04/00 documented as of this encounter
--- OUTSIDE RECORDS SUMMARY | 2023-06-13 13:06 | External Medical Summary | Summary of Care ---
Author Name Unknown Organization [facility] Address [address] [place] [address] Phone [phone] Care Team Providers Care Padded Products Inspector Trimmer Name Role Phone Damir De La Cruz MD Primary Care Provider +1- [phone] Reason for Visit * Reason Comments [facility]: Maintenance Encounter Details Date Type Department Care Team (Late st Contact Info) Description 04/29/2023 4:00 PM EDT [facility], [facility] [address] [facility] [place] [address] Brinda Gómez, RN [address] [facility] [place] [address] Allergies Active Allergy Reactions Criticality Noted Date [...] 0 Active guaifenesin ER (MUCINEX) 600 MG [id number]:SCIENTIFIC WRITER D, severe (HCC),Chronic cough Take 1 Tab [...] Sign Reading Time Taken Comments Blood Pressure 116/62 04/29/2023 2:55 PM EDT Pulse 100 04/29/2023 2:55 PM EDT Temperature 36.9 C (98.4 F) 04/29/2023 2 :55 PM EDT Respiratory Rate 22 04/29/2023 2:55 PM EDT Oxygen Saturation 99% 04/29/2023 2:5 5 PM EDT o2 on at 6 l/min via nc Inhaled Oxygen Concentration - - Weight - - Height - - Body Mass Index - - documented in this encounter Progress Notes * Brinda Gómez, RN - 04/29/2023 12:26 PM EDT [facility] Heat Treat Supervisor Visit Date: 04/29/2023 Time: 3:26 PM Name: Iris Goodwin : 1955 Current Concerns: Seen for return RNCM visit Continues to use Miralax as needed for constipation She also reports she has been eating raisins more and it helps with constipation Using Morphine 4-5x a day She reports that it makes her anxious that she is going to run out, despite being reassured by provider that they will refill if she calls within a few days She reports that her SOB has been getting worse in the evenings She has been using it more frequents, but again, afraid to at times as she is afraid she might run out TT sent to ernie Rosales PA-C - question if dose should be increased as pt is using more Vitals stable Lungs diminished throughout Reports pressure and "hearing heart thump" in ears Checked b/l ears with otoscope - noted mod amt of wax of right ear, small amt in left ear Pt is going to start Debrox drops today and will schedule return nurse visit to [facility] for nextweek on 05/04 Physical Exam: BP 116/62 | Pulse 100 | Temp 36.9 C (98.4 F) | Resp 22 | LMP 07/22/2004 | SpO2 99% Comment: o2 on at 6 l/min via nc Pain 0 Physical Exam Constitutional: General: She is not in acute distress. Cardiovascular: Rate and Rhythm: Normal rate and regular rhythm. Pulses: Normal pulses. Heart sounds: Normal heart sounds. Pulmonary: Comments: Lung diminished throughout Abdominal: Palpations: Abdomen is soft. Skin: General: Skin is warm and dry. Neurological: Mental Status: She is alert and oriented to person, place, and time. Problems/Symptoms: Review of Systems Constitutional: Positive for fatigue. HENT: Negative. Eyes: Negative. Respiratory: Positive for cough and shortness of breath. Cardiovascular: Negative. Gastrointestinal: Negative. Genitourinary: Negative. Musculoskeletal: Positive for back pain. Neurological: Negative. Hematological: Negative. Medication Reconciliation: (See medication list) Does patient take medications as ordered: Yes Patient Well Being: PHQ2/9: No questionnaires available. No change in living situation Denies falls [facility] Completed this Visit: No. Routine visit and No falls since last visit Advanced Care Planning: Living Will. and POLST. Patient's Goals of Care: Maintain current functional abilities Be comfortable Reinforcement/Education: COPD: Pt instructed to: -Call with [...] paid cg program - gets reimbursement from [employer] - cg three times a week (8hrs each week) Uses Tr[employer]ogy NIV overnight Morphine sulfate prn dyspnea Palliative involved Senna and Miralax for constipation Home Interventions Provided: Home Intervention: Other; Eval Consulted PCP/Specialist Reinforced current Plan of Care, including self-management and medication regimen Patient's 'Red Flags': Can't catch your breath Increased fatigue/weakness Chest feels tight Patient Needs to Remember: Call [facility] at with any new or worsening health [...] visits & schedule home visit with care support team assoc(s)as indicated. Provider is in agreement with Plan of Care: Yes Scheduled to follow up with patient next week for ear flush. Brinda Gómez RN 04/29/2023 3:26 PM documented in this encounter Plan of Treatment Upcoming Encounters Date Type Department Care Team (Late st Contact Info) Description 05/31/2023 3:00 PM EST [facility] Visit [facility] [address] [address] [place] Campbell PA-C [address] [address] 07/09/2023 2:30 PM EST [facility] Visit [facility] [place], [facility] [address] [address] Brinda Gómez RN [address] [address] Health Maintenance Due Date Last Done Comments [...] 12/07/2019, Additional history exists COVID-19 Vaccine ( - season) 2023 10/03/2020, 09/12/2020 Influenza Vaccine (FLU shot) (#1) 2023 *BISPHONATE OR OTHER ACCEPTABLE MEDICATION NEEDED FOR OSTEOPOROSIS (REFER TO SMARTSET #1146) 03/31/2023 Albumin/Creatinine Ratio 06/15/2023 022, 12/07/2019, 05/08/2019, Additional history exists GFR 06/15/2023 06/15/2022, 01/02, 12/07/2019, Additional history exists O2 ASSESSMENT COMPLETED IN PAST YEAR FOR COPD 05/04/2024 05/04/2023 Lipid Panel 01/13/2026 01/13/2021, 06/0 10/2019, 02/09/2018, Additional history exists Pap Smear Discontinued 08/12/2016, 02/2017, 11/15/2012, Additional history exists VITAMIN D LEVEL ONCE IN A LIFETIME-USE SMARTSET# 58062 Completed 05/08/2019, 05/27/2012, 11/03/2010 LUNG CANCER SCREENING - USE SMARTSET 47954 Completed 05/17/2019, 06/30/2017, 09/12/2015 GARDASIL-HPV IMMUNIZATION SERIES Aged Out No longer eligible based on patient's age to complete this topic MENINGOCOCCAL (MENACTRA/MENVEO) Aged Out No longer eligible based on patient's age to complete this topic documented as of this encounter Medical Devices Not on filedocumented as of this encounter Advance Directives Documents on File Type Date Recorded Patient Distributor Publications Expl anation POLST 02/04/2023 [place] OR DERS FOR LIFE-SUSTAINING TREATMENT POLST 06/17/2021 [place] OR DERS FOR LIFE-SUSTAINING TREATMENT Care Teams Padded Products Inspector Trimmer Relationship Specialty Start Date End Date Damir De La Cruz MD [address] [place] [address] PCP - General 04/04/00 documented as of this encounter
--- OUTSIDE RECORDS SUMMARY | 2023-06-13 13:06 | External Medical Summary | Summary of Care ---
Author Name Unknown Organization [facility] Address [address] [place] [address] Phone [phone] Care Team Providers Care Prep Manager Name Role Phone Damir De La Cruz MD Primary Care Provider +1- [phone] Reason for Visit * Reason Onset Date Comments Medication Refill 05/24/2023 Encounter Details Date Type Department Care Team (Late st Contact Info) Description 05/24/2023 [facility]ill [facility] [address] [place] [address] Brinda Gómez, RN [address] [facility] [place] [address] Allergies Active Allergy Reactions Criticality Noted Date Comments Prednisone Psych complications 10/23/2008 intolerance documented as of this encounter (statuses as of 05/31/2023) Medications Medication Sig Dispensed Refills Start Date End Date Status LORATADINE 10 MG PO TABS One pill by mouth once a day as needed for allergies 30 Tab 5 11/09/2011 Active ASPIRIN 81 MG PO CHEWIndications:archie shaw states at least 3 to 4 times a week Take by mouth. Indications: patient states at least 3 to 4 times a week 100 Tab 5 06/14/2013 Active oxygen GAS Use 4-5 L/min(Oxygen) as directed. 0 Active guaifenesin ER (MUCINEX) 600 MG [id number]:CO PD, severe (HCC),Chronic cough Take 1 Tab by mouth 2 times a day. 60 Tab 5 05/03/2019 Active Zinc Sulfate 220 (50 Zn) MG Oral Capsule Take 1 Capsule by mouth in the morning. 0 Active Multi-Day Oral Tablet Take 1 Tab by mouth daily. 0 Active Spiriva HandiHaler 18 MCG Inhalation Capsule (tiotropium bromide)Indication s:COPD, severity to be determined (HCC) Inhale 1 Capsule (2 Puffs) in the morning by mouth. For inhaler only, do not swallow.. 90 Capsule 3 07/30/2021 Active Additional Information Patient taking differently:1 Capsule Inhalation Daily(AM), For inhaler only, do not swallow.,Indications: COPD, Reported on 01/12/2023 Azithromycin 250 MG Oral Tablet (Zithromax Z-Miller)Indications: COPD, severe (HCC) Take two tablets by mouth on first day, then 1 tablet daily until gone 6 Tablet 0 11/11/2021 Active Additional Information Patient taking differently: 250 mg, Takes 3 times a week, Indications: bronchitis, Reported on 01/12/2023 Formoterol Fumarate 20 MCG/2ML Inhalation Nebulization SolutionIndication s:COPD Inhale by mouth 2 times a day . 0 Active Atorvastatin Calcium 10 MG Oral Tablet (Lipitor)Indicatio ns:Dyslipidemia, goal LDL below 100 TAKE ONE TABLET BY MOUTH EVERY NIGHT AT BEDTIME 90 Tablet 3 07/21/2022 Active Lisinopril 5 MG Oral Tablet (Prinivil)Indicati ons:Type 2 diabetes mellitus with diabetic nephropathy, without long-term current use of insulin (HCC) Take 1 Tablet by mouth in the morning. 90 Tablet 3 07/21/2022 Active Acetaminophen 325 MG Oral Tablet Take 1 Tablet by mouth every 6 hours as needed. 0 Active Budesonide 0.5 MG/2ML Inhalation Suspension (Pulmicort) inhale one vial (0.5 mg) via nebulizer twice daily 360 mL 11 01/06/2023 Active Ipratropium-Albute rol 0.5-2.5 (3) MG/3ML Inhalation Solution (Duoneb) Inhale [...] 4 hours as needed (shortness of breath). 90 mL 0 05/24/2023 Active Morphine Sulfate (Concentrate) 100 MG/5ML Oral Solution Take 0.5 mL by mouth every 4 hours as needed (shortness of breath). 30 mL 0 05/04/2023 Discontinue d(Refill) documented as of this encounter (statuses as [...] Tobacco: Never Comments:tried to quit with patches 1990 Alcohol Use Standard Drinks/Week Comments Not Currently [...] encounter Miscellaneous Notes * Telephone Encounter - Jason Campbell PA-C - 05/24/2023 4:33 PM EST * Telephone Encounter - Jason Campbell PA-C - 05/24/2023 4:33 PM ESTSigned Prescriptions: Disp Refills Morphine Sulfate (Concentrate) 100 MG/5ML *90 mL 0 Sig: Take 0.5 mL by mouth every 4 hours as needed (shortness of breath). Authorizing Provider: JASON CAMPBELL * Telephone Encounter - Brinda Gómez RN - 05/24/2023 2:20 PM EST Pt in need of refill of Morphine sulfate. [facility]. The dose was increased last time but the refill she got was the same amount. Can you please put in for higher than 30ml supply? Maybe 60ml? Thank you! documented in this encounter Plan of Treatment Upcoming Encounters Date Type Department Care Team (Late st Contact Info) Description 06/07/2023 2:30 PM EST Office Visit Audiology [facility] [address] [address] Fadumo Dangelo Au.D. [address] [address] 06/07/2023 3:00 PM EST Office Visit Otolaryngology [facility] [address] [address] Nehemiah Bo PA-C [address] [place] [address] 07/09/2023 2:30 PM EST [facility] Visit [facility], [facility] [address] [place] [address] Brinda Gómez RN [address] [place] [address] Health Maintenance Due Date Last Done Comments [...] Additional history exists DXA Scan 05/28/2022 05/28/2020, 0608/2013, 09/12/2010, Additional history exists DTaP,Tdap,and Td Vaccines (2 - Td or Tdap) 11/15/2022 11/15/2012, 08/12/2007, 06/10/1998 HbA1c 12/14/2022 06/15/2022, 01/02, 12/07/2019, Additional history exists COVID-19 Vaccine (3 - 2022- season) 2023 10/03/2020, 09/12/2020 Influenza Vaccine (FLU [...] D LEVEL ONCE IN A LIFETIME-USE SMARTSET# [id number] Completed 05/08/2019, 05/27/2012, 11/03/2010 LUNG CANCER SCREENING - USE SMARTSET 32038 Completed 05/17/2019, 06/30/2017, 09/12/2015 GARDASIL-HPV IMMUNIZATION SERIES Aged Out No longer eligible based on patient's age to complete this topic MENINGOCOCCAL (MENACTRA/MENVEO) Aged Out No longer eligible based on patient's age to complete this topic documented as of this encounter Medical Devices Not on filedocumented as of this encounter Advance Directives Documents on File Type Date Recorded 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
--- OUTSIDE RECORDS SUMMARY | 2023-06-13 13:06 | External Medical Summary | Summary of Care ---
Author Name Unknown Organization [facility] Address [address] [place] [address] Phone [phone] Care Team Providers Care Sanitizer Name Role Phone Damir De La Cruz MD Primary Care Provider +1- [phone] Reason for Visit * Reason Onset Date Comments Appointment 05/24/2023 Encounter Details Date Type Department Care Team (Late st Contact Info) Description 05/24/2023 Telephone Otolaryngology [facility] [address] [place], [place] [phone] Services, Scheduling [address] [place] [address] Appointment Allergies Active Allergy Reactions Criticality Noted Date Comments Prednisone Psych complications 10/23/2008 intolerance documented as of this encounter (statuses as of 06/02/2023) Medications Medication Sig Dispensed Refills Start Date [...] 0 Active guaifenesin ER (MUCINEX) 600 MG [id number]: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 D, severe (HCC),Chronic cough Take 1 Tab [...] nephropathy, without long-term current use of insulin ([facility]) Take 1 Tablet by mouth in the [...] as of this encounter (statuses as of 06/02/2023) Active Problems Problem Noted Date Diagnosed Date [...] as of this encounter (statuses as of 06/02/2023) Resolved Problems Problem Noted Date Diagnosed Date [...] as of this encounter (statuses as of 06/02/2023) Immunizations Name Administration Dates Next Due COVID-19 [...] encounter Miscellaneous Notes * Telephone Encounter - Alyssa Barrientos OSA - 06/02/2023 2:21 PM EST Per chart review patient is scheduled Alyssa * Telephone Encounter - Kenya Caldwell OSA - 05/25/2023 8:12 AM EST Called pt. LMOM for pt to return call. Kenya Caldwell * Telephone Encounter - Alyssa Barrientos OSA - 05/25/2023 8:10 AM EST Left message to call ENT back Alyssa * Telephone Encounter - Gina Rey OSA - 05/24/2023 2:17 PM EST Pt called in to schedule Audio/ENT referral. Pt wants to be seen in [place]. Please advise, date and time pt can be reached at [phone] documented in this encounter Plan of Treatment Upcoming Encounters Date Type Department Care Team (Late st Contact Info) Description 06/07/2023 2:30 PM EST Office Visit Audiology [facility] [address] [address] Fadumo Dangelo Au.D. [address] [address] 06/07/2023 3:00 PM EST Office Visit Otolaryngology [facility] [address] [address] Nehemiah Bo PA-C [address] [address] 07/09/2023 2:30 PM EST Home Visit [facility] [address] [address] Brinda Gómez, RN [address] [address] Health Maintenance Due Date Last Done Comments [...] ASSESSMENT COMPLETED IN PAST YEAR FOR COPD 05/31/2024 05/31/2023 Lipid Panel 01/13/2026 01/13/2021, 10/2019, 02/09/2018, Additional history exists Pap Smear Discontinued 08/12/2016, 02/2017, 11/15/2012, Additional history exists VITAMIN D LEVEL ONCE IN A LIFETIME-USE SMARTSET# 99884 Completed 05/08/2019, 05/27/2012, 11/03/2010 LUNG CANCER SCREENING - USE SMARTSET 91200 Completed 05/17/2019, 06/30/2017, 09/12/2015 GARDASIL-HPV IMMUNIZATION SERIES Aged Out No longer eligible based on patient's age to complete this topic MENINGOCOCCAL (MENACTRA/MENVEO) Aged Out No longer eligible based on patient's age to complete this topic documented as of this encounter Medical Devices Not on filedocumented as of this encounter Advance Directives Documents on File Type Date Recorded 

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
--- OUTSIDE RECORDS SUMMARY | 2023-06-13 13:06 | External Medical Summary | Summary of Care ---
Author Name Unknown Organization [facility] Address [address] [place] [address] Phone [phone] Care Team Providers Care Professor Of Journalism Name Role Phone Damir Gordon MD Primary Care Provider +1- [phone] Reason for Visit * Reason Comments eRx-Medication Refill Encounter Details Date Type Department Care Team (Late st Contact Info) Description 06/07/[address] [facility] [address] [place] [address] Damir Gordon MD [address] [place] [address] Allergies Active Allergy Reactions Criticality Noted Date Comments Prednisone Psych complications 10/23/2008 intolerance documented as of this encounter (statuses as of 06/08/2023) Medications Medication Sig Dispensed Refills Start Date End Date Status LORATADINE 10 MG PO TABS One pill by mouth once a day as needed for allergies 30 Tab 5 11/09/2011 Active ASPIRIN 81 MG PO CHEWIndications:p atient states at least 3 to 4 times a week Take by mouth. Indications: patient states at least 3 to 4 times a week 100 Tab 5 06/14/2013 Active oxygen GAS Use 4-5 L/min(Oxygen) as directed. 0 Active guaifenesin ER (MUCINEX) 600 MG [id number]:C OPD, severe (HCC),Chronic cough Take 1 Tab by mouth 2 times a day. 60 Tab 5 05/03/2019 Active Zinc Sulfate 220 (50 Zn) MG Oral Capsule Take 1 Capsule by mouth in the morning. 0 Active Multi-Day Oral Tablet Take 1 Tab by mouth daily. 0 Active Spiriva HandiHaler 18 MCG Inhalation Capsule (tiotropium bromide)Indicatio ns:COPD, severity to be determined (HCC) Inhale 1 Capsule (2 Puffs) in the morning by mouth. For inhaler only, do not swallow.. 90 Capsule 3 07/30/2021 Active Additional Information Patient taking differently:1 Capsule Inhalation Daily(AM), For inhaler only, do not swallow.,Indications: COPD, Reported on 01/12/2023 Azithromycin 250 MG Oral Tablet (Zithromax Z-Miller)Indications :COPD, severe (HCC) Take two tablets by mouth on first day, then 1 tablet daily until gone 6 Tablet 0 11/11/2021 Active Additional Information Patient taking differently: 250 mg, Takes 3 times a week, Indications: bronchitis, Reported on 01/12/2023 Formoterol Fumarate 20 MCG/2ML Inhalation Nebulization SolutionIndicatio ns:COPD Inhale by mouth 2 times a day . 0 Active Atorvastatin Calcium 10 MG Oral Tablet (Lipitor)Indicati ons:Dyslipidemia, goal LDL below 100 TAKE ONE TABLET BY MOUTH EVERY NIGHT AT BEDTIME 90 Tablet 3 07/21/2022 Active Lisinopril 5 MG Oral Tablet (Prinivil)Indicat ions:Type 2 diabetes mellitus with diabetic nephropathy, without long-term current use of insulin (HCC) Take 1 Tablet by mouth in the morning. 90 Tablet 3 07/21/2022 Active Acetaminophen 325 MG Oral Tablet Take 1 Tablet by mouth every 6 hours as needed. 0 Active Budesonide 0.5 MG/2ML Inhalation Suspension (Pulmicort) inhale one vial (0.5 mg) via nebulizer twice daily 360 mL 11 01/06/2023 Active Ipratropium-Albut yuli 0.5-2.5 (3) MG/3ML Inhalation Solution (Duoneb) Inhale 3 mL by mouth every 6 hours as needed. 0 Active Lansoprazole 15 MG Oral Capsule Delayed Release (Prevacid) Take 1 Capsule by mouth in the morning. 0 Active Docusate Sodium 100 MG Oral Capsule (Colace) Take 1 Capsule by mouth every afternoon. 0 Active Albuterol Sulfate HFA 108 (90 Base) [...] of breath). 90 mL 0 05/24/2023 Active traZODone HCl 50 MG Oral Tablet (Desyrel) Take 1.5 Tablets by mouth at bedtime. May increase to 2 tab as tolerated or needed for insomnia 180 Tablet 0 06/08/2023 Active traZODone HCl 50 MG Oral Tablet (Desyrel) Take 1.5 Tablets by mouth at bedtime. May increase to 2 tab as tolerated or needed for insomnia 180 Tablet 0 03/16/2023 06/08/20 23 Discontinued documented as of this encounter (statuses as of 06/08/2023) Active Problems Problem Noted Date Diagnosed Date [...] as of this encounter (statuses as of 06/08/2023) Resolved Problems Problem Noted Date Diagnosed Date [...] as of this encounter (statuses as of 06/08/2023) Immunizations Name Administration Dates Next Due COVID-19 [...] encounter Miscellaneous Notes * Telephone Encounter - Patti Gray [facility] - 06/08/2023 7:00 AM ESTSigned Prescriptions: Disp Refills traZODone HCl 50 MG Oral Tablet (Desyrel) 180 Ta*0 Sig: Take 1.5Tablets by mouth at bedtime. May increase to 2 tab as tolerated or needed for insomniaAuthorizing Provider: DAMIR GORDON User: PATTI GRAY documented in this encounter Plan of Treatment Upcoming Encounters Date Type Department Care Team (Late st Contact Info) Description 07/09/2023 2:30 PM EST Home Visit [facility] [address] [address] Brinda Gómez, RN [address] [address] 08/17/2023 2:00 PM EST Office Visit Otolaryngology [facility] [address] [address] Jesus Stauffer DO [address] [address] Health Maintenance Due Date Last Done Comments [...] D LEVEL ONCE IN A LIFETIME-USE SMARTSET# [id number] Completed 05/08/2019, 05/27/2012, 11/03/2010 LUNG CANCER SCREENING - USE SMARTSET [id number] Completed 05/17/2019, 06/30/2017, 09/12/2015 GARDASIL-HPV IMMUNIZATION SERIES Aged Out No longer eligible based on patient's age to complete this topic MENINGOCOCCAL (MENACTRA/MENVEO) Aged Out No longer eligible based on patient's age to complete this topic documented as of this encounter Medical Devices Not on filedocumented as of this encounter Advance Directives Documents on File Type Date Recorded Patient Video Recorder Mechanic Expl anation POLST 02/04/2023 [place] [facility] DERS FOR LIFE-SUSTAINING TREATMENT POLST 06/17/2021 [place] [facility] DERS FOR LIFE-SUSTAINING TREATMENT Care Teams Professor Of Journalism Relationship Specialty Start Date End Date Damir Gordon MD [address] [place] [address] PCP - General 04/04/00 documented as of this encounter
--- OUTSIDE RECORDS SUMMARY | 2023-06-13 13:06 | External Medical Summary | Summary of Care ---
Author Name Unknown Organization [facility] Address [address] [place] [address] Phone [phone] Care Team Providers Care Knitting Machine Operator Name Role Phone Damir De La Cruz MD Primary Care Provider [phone]- [phone] Reason for Visit * Reason Onset Date Comments Appointment 05/24/2023 Encounter Details Date Type Department Care Team (Late st Contact Info) Description 05/24/2023 Telephone Otolaryngology [facility] [address] [place], [place] [id number] Services, Scheduling [address] [place] [address] Appointment Allergies Active Allergy Reactions Criticality Noted [...] 0 Active guaifenesin ER (MUCINEX) 600 MG [id number]:HUMAN RESOURCES ASSISTANT D, severe (HCC),Chronic cough Take 1 Tab [...] nephropathy, without long-term current use of insulin ([facility]) Take 1 Tablet by mouth in [...] referral. Pt wants to be seen in [place]. Please advise, date and time pt can be reached at [phone] documented in this encounter Plan of Treatment Upcoming Encounters Date Type Department Care Team (Late st Contact Info) Description 05/31/2023 3:00 PM EST Home Visit [facility] [address] [place] [address] [place] Campbell PA-C [address] [place] [address] 07/09/2023 2:30 PM EST Home Visit [facility] [place], [facility] [address] [place] [address] Brinda Gómez RN [address] [place] [address] Health Maintenance Due Date Last Done Comments [...] D LEVEL ONCE IN A LIFETIME-USE SMARTSET# [id number] Completed 05/08/2019, 05/27/2012, 11/03/2010 LUNG CANCER SCREENING - USE SMARTSET [id number] Completed 05/17/2019, 06/30/2017, 09/12/2015 GARDASIL-HPV IMMUNIZATION SERIES Aged Out No longer eligible based on patient's age to complete this topic MENINGOCOCCAL (MENACTRA/MENVEO) Aged Out No longer eligible based on patient's age to complete this topic documented as of this encounter Medical Devices Not on filedocumented as of this encounter Advance Directives Documents on File Type Date Recorded Patient Cath Lab Radiology Technician Expl anation POLST 02/04/2023 [place] OR DERS FOR LIFE-SUSTAINING TREATMENT POLST 06/17/2021 [place] OR DERS FOR LIFE-SUSTAINING TREATMENT Care Teams Knitting Machine Operator Relationship Specialty Start Date End Date Damir De La Cruz MD [address] [facility] [place] [address] PCP - General 04/04/00 documented as of this encounter
--- OUTSIDE RECORDS SUMMARY | 2023-06-13 13:07 | External Medical Summary | Summary of Care ---
Author Name Unknown Organization [facility] Address [address] [place] [address] Phone [phone] Care Team Providers Care Cargo Operations Agent Name Role Phone Damir De La Cruz MD Primary Care Provider [phone]- [phone] Encounter Details Date Type Department Care Team Description 04/21/2023 Refill [facility], [facility] [address] [facility] [place] [address] [facility], Nurse [address] [id number] Allergies Active Allergy Reactions Severity Noted Date Comments Prednisone Psych complications 10/23/2008 intolerance documented as of this encounter (statuses as of 04/21/2023) Medications Medication Sig Dispensed Refills Start Date [...] 0 Active guaifenesin ER (MUCINEX) 600 MG [id number] PD, severe (HCC),Chronic cough Take 1 Tab [...] nephropathy, without long-term current use of insulin ([facility]) Take 1 Tablet by mouth [...] of Breath. 18 g 2 03/16/2023 Active Gabapentin 100 MG Oral Capsule (Neurontin) Take 1 Capsule by mouth at bedtime. 0 Active Morphine Sulfate (Concentrate) 100 MG/5ML Oral Solution Take 0.25 mL by mouth every 4 hours as needed (shortness of breath). 30 mL 0 04/14/2023 Active Arformoterol Tartrate 15 MCG/2ML Inhalation Nebulization Solution (Brovana) Inhale 15 mcg by mouth in the morning and 15 mcg before bedtime. 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 11/18/2021 POLST (Physician Orders for Life-Sustain ing Treatment) 06/17/2021 Controlled substance agreement signed COPD, severe 11/12/2011 DM type 2 causing renal disease 11/05/19 10 Chronic rhinitis 08/22/2002 Tobacco use disorder 12/07/2000 Reflux esophagitis ADJ DISORDER W/DEPRES MOOD Neuropathy documented as of this encounter (statuses as of 04/21/2023) Resolved Problems Problem Noted Date Resolved Date Depression, unspecified 03/25/2023 03/25/20 23 Type 2 diabetes mellitus wit h hemoglobin A1c goal of less than 7.0% 08/29/2013 06/09/2021 Overview: ICD-10 update of inactive term Duplicate COPD, moderate 05/14/2011 11/12/2011 Dysfunction of eustachian tube 07/26/2007 0 08/12/2017 Otalgia 07/26/2007 08/12/2017 ADVANCE DIRECTIVE INFORMATION 05/11/2005 Overview: No, Advance Directive brochure given to patient. Hydronephrosis 02/17/2001 05/12/2018 Injury of hand 08/11/2000 08/12/2017 [employer] NEC 03/17/2000 05/14/20 11 Hematuria 11/20/1999 06/12/2020 Overview: ICD-10 update of inactive term documented as of this encounter (statuses as of 04/21/2023) Immunizations Name Administration Dates Next Due COVID-19 [...] = 0.6 oz pur e alcohol) rare Food Insecurity Answer Date Recorded Within the past 12 months, y ou worried that your food would run out before you got money to buy more. Never true 05/03/2019 Within the past 12 months, t he food you bought just didn't last and you didn't have money to get more. Never true 05/03/2019 Sex Assigned at Date Recorded Not on file Job Start Date Occupation Industry Not on file Not on file Not on file documented as of this encounter Miscellaneous Notes * Telephone Encounter - Hoa Paul RN - 04/21/2023 9:47 AM EDT Pt calling for refill on Brovana Inhaler. [email or web address] Pt also questioning if she can get the flu fom her DIL who had flu vaccine yesterday and is feelingill from it. Instructed her on side effects of vaccine. Instructed that it is highly unlikely for her to become ill from her DIL cooking her meals. Routing to PCP for refill. Hoa Paul RN [facility] Intake Triage Coordinator [phone] documented in this encounter Plan of Treatment Upcoming Encounters Date Type Specialty Care Team Description 04/29/2023 Home Visit [facility] Brinda Gómez RN [address] [place] [address] Health Maintenance Due Date Last Done Comments Alpha-1 Antitrypsin 10/16/1973 Hepatitis C Screening 10/16/1973 Cologuard 10/16/2000 Colonoscopy 10/16/2000 Sigmoidoscopy 10/16/2000 Zoster Vaccines (1 of 2) 10/16/2005 Pneumococcal Vaccine: 65+ Years (2 - PCV) 10/23/2009 10/23/2008 Colorectal Cancer Screening 07/23/2016 Fecal Occult Blood Test 07/23/2016 07/23/2015 Depression Screening 05/03/2020 05/03/2019 Diabetic Foot Exam 05/03/2020 05/03/2019, 1 07/12/2017, 08/12/2017, Additional history exists Mammogram 06/11/2021 06/11/2020, 05/06, 05/25/2018, Additional history exists DIABETES-EYE EXAM 09/05/2021 09/05/2020, , 06/11/2016, Additional history exists DXA Scan 05/28/2022 05/28/2020, 06/08/2013, 09/12/2010, Additional history exists DTaP,Tdap,and Td Vaccines (2 - Td or Tdap) 11/15/2022 11/15/2012, 08/12/2007, 06/10/1998 HbA1c 12/14/2022 06/15/2022, 01/02, 12/07/2019, Additional history exists COVID-19 Vaccine (3 - season) 2023 10/03/2020, 09/12/2020 Influenza Vaccine (FLU shot) (#1) 2023 *BISPHONATE OR OTHER ACCEPTABLE MEDICATION NEEDED FOR OSTEOPOROSIS (REFER TO SMARTSET #[id number]) 03/31/2023 Albumin/Creatinine Ratio 06/15/2023 022, 12/07/2019, 05/08/2019, Additional history exists GFR 06/15/2023 06/15/2022, 01/02, 12/07/2019, Additional history exists O2 ASSESSMENT COMPLETED IN PAST YEAR FOR COPD 03/24/2024 03/24/2023 Lipid Panel 01/13/2026 01/13/2021, 10/2019, 02/09/2018, Additional history exists Pap Smear Discontinued 08/12/2016, 02/2017, 11/15/2012, Additional history exists VITAMIN D LEVEL ONCE IN A LIFETIME-USE SMARTSET# [id number] Completed 05/08/2019, 05/27/2012, 11/03/2010 LUNG CANCER SCREENING - USE SMARTSET [id number] Completed 05/17/2019, 06/30/2017, 09/12/2015 GARDASIL-HPV IMMUNIZATION SERIES Aged Out No longer eligible based on patient's age to complete this topic Hepatitis B Aged Out No longer eligi ble based on patient's age to complete this topic MENINGOCOCCAL (MENACTRA/MENVEO) Aged Out No longer eligible based on patient's age to complete this topic documented as of this encounter Medical Devices Not on filedocumented as of this encounter Advance Directives Documents on File Type Date Recorded Patient Life Specialist Expl anation POLST 02/04/2023 [place] OR DERS FOR LIFE-SUSTAINING TREATMENT POLST 06/17/2021 [place] OR DERS FOR LIFE-SUSTAINING TREATMENT Care Teams Cargo Operations Agent Relationship Specialty Start Date End Date Damir De La Cruz MD [address] [place] [address] PCP - General 04/04/00 documented as of this encounter
--- OUTSIDE RECORDS SUMMARY | 2023-06-13 13:07 | External Medical Summary | Summary of Care ---
Author Name Unknown Organization [facility] Address [address] [place] [address] Phone [phone] Care Team Providers Care Magazine Editor Name Role Phone Damir De La Cruz MD Primary Care Provider [phone]- [phone] Encounter Details Date Type Department Care Team Description 03/24/2023 Telemedicine [facility] [place], [facility] [address] [place] [address] Dallas Campbell PA-C [address] [place] [address] Emilee Flynn, Community Health Hand Flatwork Finisher [address] [place] [address] Palliative care encounter*; Advanced care planning/counseling discussion; 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); COPD, severe (HCC); Hyperlipidemia, unspecified hyperlipidemia type; Gastroesophageal reflux disease with esophagitis, unspecified whether hemorrhage; Age-related osteoporosis without current pathological fracture; ADJ DISORDER W/DEPRES MOOD Allergies Active Allergy Reactions Severity Noted Date Comments Prednisone Psych complications 10/23/2008 intolerance documented as of this encounter (statuses as of 03/25/2023) Medications Medication Sig Dispensed Refills Start Date [...] 0 Active guaifenesin ER (MUCINEX) 600 MG [id number] OPD, severe (HCC),Chronic cough Take 1 Tab [...] twice daily 360 mL 11 01/06/2023 Active Arformoterol Tartrate 15 MCG/2ML Inhalation Nebulization Solution (Brovana) inhale one vial (2 mL) via nebulizer twice a day 120 mL 11 01/07/2023 Active Ipratropium-Albut yuli 0.5-2.5 (3) MG/3ML Inhalation Solution (Duoneb) Inhale 3 mL by mouth every 6 hours as needed. 0 Active Lansoprazole 15 MG Oral Capsule Delayed Release (Prevacid) Take 1 Capsule by mouth in the morning. 0 Active Docusate Sodium 100 MG Oral Capsule (Colace) Take 1 Capsule by mouth every afternoon. 0 Active Morphine Sulfate (Concentrate) 100 MG/5ML Oral Solution Take 0.25 mL by mouth every 4 hours as needed (shortness of breath). 30 mL 0 03/04/2023 Active traZODone HCl 50 MG Oral Tablet [...] Capsule by mouth at bedtime. 0 Active traMADol HCl 50 MG Oral Tablet (Ultram)Indicatio ns:Controlled substance agreement signed Take 1 Tablet by mouth every 6 hours as needed for Pain, Moderate. 120 Tablet 0 03/16/2023 03/25/20 23 Discontinued documented as of this encounter (statuses as of 03/25/2023) Active Problems Problem Noted Date Hyperlipidemia 03/25/2023 [...] as of this encounter (statuses as of 03/25/2023) Resolved Problems Problem Noted Date Resolved Date [...] as of this encounter (statuses as of 03/25/2023) Immunizations Name Administration Dates Next Due COVID-19 [...] Sign Reading Time Taken Comments Blood Pressure 130/60 03/24/2023 4:43 PM EDT Pulse 113 03/24/2023 4:43 PM EDT Temperature 36.6 C (97.8 F) 03/24/2023 4:43 PM ED T Respiratory Rate 22 03/24/2023 4:43 PM EDT Oxygen Saturation 99% 03/24/2023 4:43 PM EDT Inhaled Oxygen Concentration - - Weight - - Height - - Body Mass Index - - documented in this encounter Progress Notes * Emilee Flynn - 03/24/2023 4:43 PM EDT Community Health Hand Flatwork Finisher Telephone Visit Date: 03/24/2023 Time: 4:43 PM Name: Iris Goodwin : 1955 Source of Information: Patient COVID-19 screening completed: Yes Vitals: Vital signs completed: Yes, vital signs within normal range. BP 130/60 (BP Site: Right Arm, BP Position: Sitting, BP Cuff Size: Regular) | Pulse 113 | Temp 36.6C (97.8 F) (Infrared ) | Resp 22 | LMP 07/22/2004 | SpO2 99% Condition Changes: Changes in health or social status since last visit: patient is concerned about not being able to get her morphine refilled is having difficulty with [facility] The patient has new concerns since last visit: No Progress towards goals since last visit: See above Medications: Medication review completed? Yes, no gaps identified Does the patient have barriers to medication adherence? No. Symptoms Surveys and Evaluations: Last flowsheet values for [facility]: Age 65+: 1 (01/27/2023 8:00 AM) Diagnosis (3 or more co-existing): 1 (01/27/2023 8:00 AM) Prior history of falls within 3 months: 0 (01/27/2023 8:00 AM) Incontinence: 0 (01/27/2023 8:00 AM) Visual impairment: 0 (01/27/2023 8:00 AM) Impaired functional mobility: 1 (01/27/2023 8:00 AM) Environmental hazards: 1 (01/27/2023 8:00 AM) Poly Pharmacy (4 or more prescriptions - any type): 1 (01/27/2023 8:00 AM) Pain affecting level of function: 0 (01/27/2023 8:00 AM) Cognitive impairment: 0 (01/27/2023 8:00 AM) Score - a score of 4 or more is considered at risk for fallin (01/27/2023 8:00 AM) COPD Checklist COPD JOHNNY (Community Health Hand Flatwork Finisher) Checklist The patient uses oxygen: Yes Tanks are stored: in kitchen by dinning room table Compressor located away from anything flammable: yes Oxygen tubing: - Clean and in good repair: Yes - Reached out to Durable Medical Equipment supplier for replacement tubing: No, - Referred to Director Of Customer Service for additional in-home respiratory assessment: No, - Other: Describe how the patient manages going out with oxygen: - Referred to Director Of Customer Service for portable oxygen order: No - Coordinated portable oxygen tanks with Durable Medical Equipment supplier: No The patient uses a nebulizer: Yes Describe how the patient uses their nebulizer: Demonstrated using the nebulizer and appeared to understand. Describe how the patient cleans the nebulizer (including the filter): Patient demonstrated cleaningand appeared to understand. The patient uses an inhaler: Yes Describe how the patient uses the inhaler: Patient demonstrated using the inhaler and appeared to understand. Describe how the patient cleans the inhaler: Patient demonstrated cleaning and appeared to understand. Frequency of inhaler use: as prescribed COPD Assessment Test (CAT) completed this visit: Yes Last flowsheet values for COPD Assessment Test (CAT): [id number])@ Plan: Reinforced care plan established by care team Reinforced patient's three red flags by the care team No red flags were identified at this time Follow Up: Patient encouraged to call the intake phone number for all urgent but not emergent issues. Scheduled to follow up with patient in two weeks via telephone. Emilee Flynn Community [facility] Hand Flatwork Finisher 03/24/2023 4:43 PM * Dallas Campbell PA-C - 03/24/2023 3:22 PM EDT Images from the original note were not included. 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) (J44.9) COPD, severe (HCC) Plan: DNR, DNI, comfort measures only Met with hospice, but has elected against at this point Continue morphine prn for dyspnea APAP 1000mg tid, and morphine prn for breakthrough pain Oxygen at 5lpm Triology overnight and prn dyspnea (E78.5) Hyperlipidemia, unspecified hyperlipidemia type Plan: on statin (K21.00) Gastroesophageal reflux disease with esophagitis, unspecified whether hemorrhage Plan: continue ppi (M81.0) Age-related osteoporosis without current pathological fracture Plan: high risk per previous dexa (F43.21) ADJ DISORDER W/DEPRES MOOD Plan: trazodone at hs Continue to follow for palliative. Will schedule to f/u by phone in 2-3 weeks, or sooner if indicated. Advance care planning/Goals of Care: See documentation in Advance Care Planning module and ACP note. SUBJECTIVE: Family present: no Patient is 67 year old female with severe end stage COPD, chronic hypoxemic respiratory failure on chronic supplemental oxygen. Other comorbidities include DM type 2, polyneuropathy, gerd, depression, HTn, and tobacco use disorder. 01/10-01/14/23 - [facility] - acute on chronic hypercarbic respiratory failure 02/03-02/08/23 - [facility] - acute on chronic COPD and respiratory failure with hypoxia,hypercarbia On previous admission, patient met with palliative care. Plan was to transition to hospice care ([facility]). After meeting with hospice, she elected to stay with [facility]. Overall reports being able to manage mostly on her own. She has friends and family that help out when needed. Her son also lives upstairs. She continues to use morphine as needed for dyspnea. On oxygen a 5lpm. Trilogy NIV overnight and occasionally in the afternoon for SOB. Morphine has been effective for dyspnea. She is using miralax and senna to manage constipation. Using APAP 1000mg tid for pain. Was previously on tramadol as well. We discussed using morphine at this time for pain rather than combining with tramadol. Pain: yes, using apap Nausea: no Vomiting: no Confusion: no Somnolence: no Constipation: yes, miralax and senna Dyspnea: yes, reviewed Anxious: no Support: son Med Management: self Ambulates: cane/walker HISTORY: Social History Tobacco Use Smoking status: Former Packs/day: 2.00 Years: 25.00 Pack years: 50.00 Types: Cigarettes Quit date: 01/26/2023 Years since quittin.1 Smokeless tobacco: Never Tobacco comments: tried to quit with patches 1989 Substance Use Topics Alcohol use: Not Currently Comment: rare 67 year old year-old female with the following active problems: Patient Active Problem List Diagnosis Code Tobacco use disorder F17.200 Chronic rhinitis J31.0 Reflux esophagitis K21.00 ADJ DISORDER W/DEPRES MOOD F43.21 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) E11.29 COPD, severe (HCC) J44.9 Controlled substance agreement signed Z79.899 Neuropathy G62.9 POLST (Physician Orders for Life-Sustaining Treatment) Z78.9 Type 2 diabetes mellitus with polyneuropathy ([facility]) E11.42 HTN, goal below 140/90 I10 Current Outpatient Medications Medication Sig Dispense Refill [...] via nebulizer twice daily 360 mL 11 Arformoterol Tartrate 15 MCG/2ML Inhalation Nebulization Solution (Brovana) inhale one vial (2 mL) via nebulizer twice a day 120 mL 11 Ipratropium-Albuterol 0.5-2.5 (3) MG/3ML Inhalation Solution (Duoneb) Inhale 3 mL by mouth every 6 hours as needed. Lansoprazole 15 MG Oral Capsule Delayed Release (Prevacid) Take 1 Capsule by mouth in the morning. Docusate Sodium 100 MG Oral Capsule (Colace) Take 1 Capsule by mouth every afternoon. Morphine Sulfate (Concentrate) 100 MG/5ML Oral Solution Take 0.25 mL by mouth every 4 hours as needed (shortness of breath). 30 mL 0 traMADol HCl 50 MG Oral Tablet (Ultram) Take 1 Tablet by mouth every 6 hours as needed for Pain, Moderate. 120 Tablet 0 traZODone HCl 50 MG Oral Tablet (Desyrel) Take 1.5 Tablets by mouth at bedtime. May increase to 2 tab as tolerated or needed for insomnia 180 Tablet 0 Albuterol Sulfate HFA 108 (90 Base) MCG/ACT Inhalation Aerosol Solution Inhale 2 Puffs by mouth every 4 hours as needed for Shortness of Breath. 18 g 2 Gabapentin 100 MG Oral Capsule (Neurontin) Take 1 Capsule by mouth at bedtime. No current facility-administered medications for this visit. Physical Exam: BP Readings from Last 3 Encounters: 03/24/23 130/60 03/15/23 118/68 02/24/23 118/70 { Wt Readings from Last 3 Encounters: 02/16/23 35.5 kg (78 lb 3.2 oz) 02/11/23 35.7 kg (78 lb 12.8 oz) 11/20/21 36.7 kg (81 lb) Vital signs: Blood pressure 130/60, pulse 113, temperature 36.6 C (97.8 F), temperature source Infrared , resp. rate 22, last menstrual period 07/22/2004, SpO2 99 %. General: alert, dyspneic, and ill looking Neuro: alert & oriented x 3 with fluent speech Recent Results: See top of note for assessment/plan Scheduled appointments in the next 60 days: Future Appointments-next 60 days Date/Time Provider Specialty Dept Phone 04/19/2023 4:00 PM [facility] [phone] [facility] [place], [address] [address] documented in this encounter Miscellaneous Notes * ACP (Advance Care Planning) - Dallas Campbell PA-C - 03/24/2023 3:43 PM EDT Images from the original note were not included. Patient-centered Communication 03/24/2023 The patient/surrogate voluntarily agreed to participate in advance care planning discussion. They were advised that this is a separate service which may incur out of pocket cost in the form of copayment and/or deductibles. Location: Home Individual(s) present for conversation: Patient and JOHNNY Decisions Synopsis [employer] Most Recent Value Past ~10 [...] about Dying at home Additional Comments Synopsis [employer] Most Recent Value Past ~10 years 03/25/2023 16:55 Additional Comments Additional Comments: comfort measures only 03/25/2023 comfort measures only Discerning What Matters Most to the Patient: Synopsis [employer] Most Recent Value Past ~10 years 03/24/2023 [...] defines as: wants to avoid hospital and alf altogether 02/11/2023 Avoid symptoms include: Dyspnea 03/24/2023 [...] ventilation (define below);Prolonged hospital stay (define below);Prolonged alf stay (define below) 02/11/2023 Source: Content from [employer] Program Aligning Care With What Matters Most: [employer]iation [employer] Most Recent Value Past ~10 years 03/25/2023 16:55 Aligning Care With What Matters Most In their own words, the patient's understanding of their prognosis: "i know im going to " 03/25/2023 "i know im going to " Interventions/Choices: CPR;Intubation/mechanical ventilation;Hospice; at home 03/25/2023 CPR;Intubation/mechanical ventilation;Hospice; at home Rationale for Decisions [employer] Most Recent Value Past ~10 years 02/11/2023 13:46 Antibiotic therapy Their fears/concerns about Antibiotic therapy decision are: if antibiotic can treat curable infection, then ok with antibiotics. 02/11/2023 if antibiotic can treat curable infection, then ok with antibiotics. [employer] Most Recent Value Past ~10 years 02/11/2023 13:46 IV hydration Their fears/concerns about IV hydration decision are: if it could help/ comfort. 02/11/2023 if it could help/ comfort. [employer] Most Recent Value Past ~10 years 02/11/2023 13:46 Blood transfusion Their fears/concerns about Blood transfusion decision are: if I needed it-i would be ok with it if i could have it outside of the hospital 02/11/2023 if I needed it-i would be ok with it if i could have it outside of the hospital Synopsis [employer] Most Recent Value Past ~10 years 02/11/2023 13:46 Hospice Their goals for Hospice treatment are: to comfortably 02/11/2023 to comfortably Synopsis [employer] Most Recent Value Past ~10 years 03/25/2023 [...] snf Source: Content from [employer] Program 20 minutes spent in direct [id number]-xh-cpyl discussion today, Dallas Campbell PA-C documented in this encounter Plan of Treatment Upcoming Encounters Date Type Specialty Care Team Description 04/14/2023 Scheduled Telephone [facility] Dallas Campbell PA-C [address] [place] [address] 04/19/2023 Home Visit [facility] Brinda Gómez RN [address] [place] [address] Health Maintenance Due Date Last Done Comments Alpha-1 Antitrypsin 10/16/1973 Hepatitis C Screening 10/16/1973 Cologuard 10/16/2000 Colonoscopy 10/16/2000 Sigmoidoscopy 10/16/2000 Zoster Vaccines (1 of 2) 10/16/2005 Pneumococcal Vaccine: 65+ Years (2 - PCV) 10/23/2009 10/23/2008 Colorectal Cancer Screening 07/23/2016 Fecal Occult Blood Test 07/23/2016 07/23/2015 Depression Screening 05/03/2020 05/03/2019 Diabetic Foot Exam 05/03/2020 05/03/2019, 1 07/12/2017, 08/12/2017, Additional history exists COVID-19 Vaccine (3 - Pfizer series) 11/28/2020 10/03/2020, 09/12/2020 Mammogram 06/11/2021 06/11/2020, 05/06, 05/25/2018, Additional history exists DIABETES-EYE EXAM 09/05/2021 09/05/2020, , 06/11/2016, Additional history exists DTaP,Tdap,and Td Vaccines (2 - Td or Tdap) 11/15/2022 11/15/2012, 08/12/2007, 06/10/1998 HbA1c 12/14/2022 06/15/2022, 01/02, 12/07/2019, Additional history exists Influenza Vaccine (FLU shot) (#1) 2023 Albumin/Creatinine Ratio 06/15/2023 022, 12/07/2019, 05/08/2019, Additional history exists GFR 06/15/2023 06/15/2022, 01/02, 12/07/2019, Additional history exists O2 ASSESSMENT COMPLETED IN PAST YEAR FOR COPD 03/15/2024 03/15/2023 Lipid Panel 01/13/2026 01/13/2021, 10/2019, 02/09/2018, Additional history exists DXA Scan 05/28/2027 05/28/2020, 08/2013, 09/12/2010, Additional history exists Pap Smear Discontinued 08/12/2016, 02/2017, 11/15/2012, Additional history exists LUNG CANCER SCREENING - USE SMARTSET [id number] Completed 05/17/2019, 06/30/2017, 09/12/2015 GARDASIL-HPV IMMUNIZATION SERIES [...] Advanced care planning/counseling discussion Other specified counseling 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) Chronic airway obstruction, not elsewhere classified COPD, severe (HCC) Chronic airway obstruction, not elsewhere classified Hyperlipidemia, unspecified hyperlipidemia type Gastroesophageal reflux disease with esophagitis, unspecified whether hemorrhage Age-related osteoporosis without current pathological fracture Senile osteoporosis ADJ DISORDER W/DEPRES MOOD Adjustment disorder with depressed mood documented in this encounter Advance Directives Documents on File Type Date Recorded Patient Bead Supervisor Expl anation POLST 02/04/2023 [place] [facility] FOR LIFE-SUSTAINING TREATMENT POLST 06/17/2021 [place] [facility] FOR LIFE-SUSTAINING TREATMENT Care Teams Magazine Editor Relationship Specialty Start Date End Date Damir De La Cruz MD [address] [place] [address] PCP - General 04/04/00 documented as of this encounter
--- OUTSIDE RECORDS SUMMARY | 2023-06-13 13:07 | External Medical Summary | Summary of Care ---
Author Name Unknown Organization [facility] Address [address] [place] [address] Phone [phone] Care Team Providers Care Glass Installer Technician Name Role Phone Damir De La Cruz MD Primary Care Provider +1- [phone] Reason for Visit * Reason Onset Date Comments [facility]: Maintenance 05/06/2023 Encounter Details Date Type Department Care Team (Late st Contact Info) Description 05/06/2023 Telephone [facility], [facility] [address] [place] [address] [facility], Nurse [facility] [address] [place] [address] [facility]: Maintenance Allergies Active Allergy Reactions Criticality Noted Date Comments Prednisone Psych complications 10/23/2008 intolerance documented as of this encounter (statuses as of 05/06/2023) Medications Medication Sig Dispensed Refills Start Date [...] 0 Active guaifenesin ER (MUCINEX) 600 MG [id number]:SENIOR APPLICATIONS DEVELOPER D, severe (HCC),Chronic cough Take 1 Tab by mouth 2 times a day. 60 Tab 5 05/03/2019 Active Zinc Sulfate 220 (50 Zn) MG Oral Capsule Take 1 Capsule by mouth in the morning. 0 Active Multi-Day Oral Tablet Take 1 Tab by mouth daily. 0 Active Spiriva HandiHaler 18 MCG Inhalation Capsule (tiotropium bromide)Indications :COPD, severity to be determined ([facility]) Inhale 1 Capsule (2 Puffs) in the morning by mouth. For inhaler only, do not swallow.. 90 Capsule 3 07/30/2021 Active Additional Information Patient taking differently:1 Capsule Inhalation Daily(AM), For inhaler only, do not swallow.,Indications: COPD, Reported on 01/12/2023 Azithromycin 250 MG Oral Tablet (Zithromax Z-[place])Indications:C OPD, severe ([facility]) Take two tablets by mouth on first [...] long-term current use of insulin ([facility]) Take 1 Tablet by mouth in the [...] as of this encounter (statuses as of 05/06/2023) Active Problems Problem Noted Date Diagnosed Date [...] as of this encounter (statuses as of 05/06/2023) Resolved Problems Problem Noted Date Diagnosed Date Resolved Date Depression, unspecified 03/25/2023/07/2022 Type 2 diabetes mellitus wit h hemoglobin [...] as of this encounter (statuses as of 05/06/2023) Immunizations Name Administration Dates Next Due COVID-19 [...] 05/03/2019 Hunger Vital Sign Answer Date Recorded Worried About Running Out of Food in the Last Ye ar Never true 05/03/2019 Ran Out of Food in the Last Year Never true 05/03/2019 Sex and Gender Information Value Date Recorded Sex Assigned at Not on file Gender Identity Not on file Sexual Orientation Straight 12/07/2019 10 :47 AM EDT Job Start Date Occupation Industry Not on file Not on file Not on file documented as of this encounter Miscellaneous Notes * Telephone Encounter - Cecille Talbot RN - 05/06/2023 3:52 PM EDT Phone call from patient who states she wants to speak to MERLY Parry. Asked patient if intake can assist, patient states she previously spoke with MERLY and Morphine was increased from 0.25 ml to 0.5 ml every 4 hours. Patient states they sent her the same size bottle (30ml), not a larger bottle and will need refill in 10 days per pharmacist. Patient wants to assure this is right. RNCM scheduled off today Phone call to [facility] pharmacy, spoke to pharmacist Polo who states Morphine is supplied in 30 mlbottle, does not come in larger bottle. If patient is using as directed on bottle every 4 hours patient will need new script in 10 days. Pharmacist states provider can send script for 60 ml and pharmacy can send two 30 ml bottles if appropriate. Phone call to patient made aware of above, she states she just wanted to assure provider knew she would need refill sooner. Patient instructed not to wait until she is completely out of medication [facility] for new script, aware script cannot be refilled before 10 days. Routing to care team Cecille Talbot RN, [facility] classroom coordinator Navigator documented in this encounter Plan of Treatment Upcoming Encounters Date Type Department Care Team (Late st Contact Info) Description 05/24/2023 2:00 PM EST [facility] [address] [place] [address] Brinda Gómez RN [address] [place] [address] Health Maintenance Due Date Last Done Comments [...] D LEVEL ONCE IN A LIFETIME-USE SMARTSET# [id number] Completed 05/08/2019, 05/27/2012, 11/03/2010 LUNG CANCER SCREENING - USE SMARTSET [id number] Completed 05/17/2019, 06/30/2017, 09/12/2015 GARDASIL-HPV IMMUNIZATION SERIES Aged Out No longer eligible based on patient's age to complete this topic MENINGOCOCCAL (MENACTRA/MENVEO) Aged Out No longer eligible based on patient's age to complete this topic documented as of this encounter Medical Devices Not on filedocumented as of this encounter Advance Directives Documents on File Type Date Recorded Patient President Celebrity Acquistion Expl anation POLST 02/04/2023 [place] OR DERS FOR LIFE-SUSTAINING TREATMENT POLST 06/17/2021 [place] DERS FOR LIFE-SUSTAINING TREATMENT Care Teams Glass Installer Technician Relationship Specialty Start Date End Date Damir De La Cruz MD [address] [place] [address] PCP - General 04/04/00 documented as of this encounter
--- OUTSIDE RECORDS SUMMARY | 2023-06-13 13:07 | External Medical Summary | Summary of Care ---
Author Name Unknown Organization [facility] Address [address] [place] [address] Phone [phone] Care Team Providers Care Kindergartners Helper Name Role Phone Damir De La Cruz MD Primary Care Provider +1- [phone] Reason for Visit * Reason Onset Date Comments Follow Up 04/14/2023 Encounter Details Date Type Department Care Team Description 04/14/2023 Scheduled Telephone [facility] [address] [place] [address] Dallas Campbell PA-C [address] [place] [address] Allergies Active Allergy Reactions Severity Noted Date Comments Prednisone Psych complications 10/23/2008 intolerance documented as of this encounter (statuses as of 04/14/2023) Medications Medication Sig Dispensed Refills Start Date End Date Status LORATADINE 10 MG PO TABS One pill by mouth once a day as needed for allergies 30 Tab 5 11/09/2011 Active ASPIRIN 81 MG PO CHEWIndications:pa rafatnt states at least 3 to 4 times a week Take by mouth. Indications: patient states at least 3 to 4 times a week 100 Tab 5 06/14/2013 Active oxygen GAS Use 4-5 L/min(Oxygen) as directed. 0 Active guaifenesin ER (MUCINEX) 600 MG [id number]:CO PD, severe (HCC),Chronic cough Take 1 Tab [...] a day 120 mL 11 01/07/2023 Active Ipratropium-Albute rol 0.5-2.5 (3) MG/3ML Inhalation [...] of breath). 30 mL 0 04/14/2023 Active Morphine Sulfate (Concentrate) 100 MG/5ML Oral Solution Take 0.25 mL by mouth every 4 hours as needed (shortness of breath). 30 mL 0 03/29/2023 3 Discontinue d(Refill) documented as of this encounter (statuses as of 04/14/2023) Active Problems Problem Noted Date Hyperlipidemia 03/25/2023 [...] as of this encounter (statuses as of 04/14/2023) Resolved Problems Problem Noted Date Resolved Date [...] as of this encounter (statuses as of 04/14/2023) Immunizations Name Administration Dates Next Due COVID-19 [...] encounter Miscellaneous Notes * Telephone Encounter - Dallas Campbell PA-C - 04/14/2023 4:06 PM EDT 04/14/23 Phone call to follow up on severe COPD. Patient reports breathing has been at baseline. Continues to limit exertion and pace herself due to ongoing SOB. Has been using morphine as needed for dyspnea,but tries to limit use because she is concerned she will run out. Reports that she has enough to maybe last the weekend if she "stretches it". Patient previously misunderstood and though her supply had to last her the whole month. Reassured patient that she can continue to use morphine every 4 hours as needed for dyspnea. Suggested to notify [facility] for refills 2-3 days before supply runs out. Bowelsremain regular with use of prn miralax. No other concerns at this time. documented in this encounter Plan of Treatment Upcoming Encounters Date Type Specialty Care Team Description 04/19/2023 Home Visit [facility] Brinda Gómez RN [address] [place] [address] Health Maintenance Due Date Last Done Comments [...] D LEVEL ONCE IN A LIFETIME-USE SMARTSET# [id number] Completed 05/08/2019, 05/27/2012, 11/03/2010 LUNG CANCER SCREENING - USE SMARTSET [id number] Completed 05/17/2019, 06/30/2017, 09/12/2015 GARDASIL-HPV IMMUNIZATION SERIES [...] Documents on File Type Date Recorded Patient Room Service Manager Expl anation POLST 02/04/2023 [place] OR DERS FOR LIFE-SUSTAINING TREATMENT POLST 06/17/2021 [place] OR DERS FOR LIFE-SUSTAINING TREATMENT Care Teams Kindergartners Helper Relationship Specialty Start Date End Date Damir De La Cruz MD [address] [place] [address] PCP - General 04/04/00 documented as of this encounter
--- OUTSIDE RECORDS SUMMARY | 2023-06-13 13:07 | External Medical Summary | Summary of Care ---
Author Name Unknown Organization [facility] Address [address] [place] [address] Phone [phone] Care Team Providers Care Installation And Service Technician Name Role Phone Damir De La Cruz MD Primary Care Provider +1- [phone] Reason for Referral * Evaluate & Treat - Unlimited Visits (Within 10 days (routine)) - Authorized Specialty Diagnoses / Procedures Referred By Roxane dennison Referred To Contact Otolaryngology Diagnoses Pulsatile tinnitus, right ear Justino Lua PA-C [address] [place] [address] Referral ID Status Reason Start Date Expiration Date Visits Requested Visits Authorized [id number] Authorized Specialty Services Required 3 [phone] Question Answer Referral Priority Within 10 days (routine) Where should this appointment be scheduled? [facility] Reason for Referral Ear Conditions - "pulsatile tinnitus" Specific Condition: Tinnitus - "pulsatile tinnitus" Comments Patient scheduling preferences (day/time): Transportation issues/needs: Service location preference: This today her evaluated stuck good advocate twice personal vehicle advisor to make aware of appointment: [facility] Reason for Visit * Reason Onset Date Comments [facility]: Acute 05/20/2023 Encounter Details Date Type Department Care Team (Late st Contact Info) Description 05/20/2023 Telephone [facility], [facility] [address] [facility] [place] [address] Region, Nurse [address] [place] [address] [facility]: Acute Allergies Active Allergy Reactions Criticality Noted Date [...] 0 Active guaifenesin ER (MUCINEX) 600 MG KR65Zipemvlghqo:PHOTO PRINT SPECIALIST D, severe (HCC),Chronic cough Take 1 [...] as of this encounter Miscellaneous Notes * Addendum Note - Justino Lua PA-C - 05/20/2023 8:42 PM ESTAddended by: JUSTINO LUA on: 05/20/2023 08:42 PM Modules accepted: Orders * Telephone Encounter - Justino Lua PA-C - 05/20/2023 7:59 PM EST [facility] Phone Encounter Thank you for your assistance in the care of this patient today. 67 year old year old female patient who presents today with what appears to be "pulsatile tinnitus" TSH has been normal Hemoglobin has been stable No ear infection has been identified though the patient has a history of chronic rhinitis as well as esophagitis all of which kind of communicate at the same "real estate" Patient does carry diagnosis of hypertension, no other cardiac diagnoses She does have diabetic neuropathy treated with gabapentin-gabapentin can be ototoxic Assessment: "pulsatile tinnitus" Recommendations: Move up the audiology appointment to help identify any hearing issues with her ears When the symptoms occur, please have the patient obtain blood pressure and heart rate and document them Possible scan of the head and neck to rule out possible tumor-low suspicion as well as an aneurysm/arterial venous malformation Ear exam, possibly ENT Treatment recommendations that can be utilized if there are no underlying cause found or until an underlying causes found in be treated. TRT-tinnitus retraining therapy, PMR-aggressive muscle relaxation meditation hot ago This note was prepared with the help of fluency and if there is any mis-spelled words , sentences or something which doesn't represent the content of the subject that could be technical error and please refer to the author for clarification. * Telephone Encounter - Adela Pace RN - 05/20/2023 3:44 PM EST [facility] stamping press operator Acute Call Date: 05/20/2023 Time: 3:44 PM Name: Iris Goodwin : 1955 Caller: Iris Relationship to Self Chief Complaint Patient presents with PowerCloud Systemser At Home: Acute HPI: Iris Goodwin is a 67 year old female that is calling Power[facility] Systemser at Home Intake to report pounding inR ear. Nursing Assessment: For the past 2 months the patient has been having a pounding in R ear. Says its like heart beat pounding in ear. It is constant except when she is wearing her Cpap at night. She denies pain, drainage, visual disturbances, pressure, loss of hearing, ringing in ears. Had waxcleaned out of her R ear by [facility] nurse last home visit. Patient has had problems with R ear for some time. Patient has appt with Drug Counselor 12/02/2014. Suggested she call for a earlier appointment Patient's chief complaint for this call: Other, describe Pounding in right ear. Pain Denies pain Baseline Assessment Able to performing ADLs at baseline (walking, daily tasks, etc.): Yes Chief Complaint is related to a chronic condition: Yes Chronic Condition: Pounding in R ear Chief Complaint is a change in baseline: Unknown Patient prescribed oxygen? Yes, 6L/min Patient has been ordered DME equipment (assistive devices, respiratory equipment, etc.): Yes Describe DME devices: Oxygen, Cpap Patient is using DME device as directed: Yes Medication Reconciliation: (See medication list) Received flu shot this season: No Taking medication as ordered: Yes Medications ordered/taking to treat reason for call: No Heart failure symptoms: No COPD exacerbation symptoms: No Reinforcement Education: Take all medications as ordered Warm compresses to R ear Tylenol for discomfort. Follow up with bi developer Treatment/Plan: (need to report) Level of call: Non-Acute Recommended treatment plan: PC scheduled. Clinical advice given over the phone Routing to care team to review and make recommendations if warranted. Call back instructions provided to patient. Adela Pace. RN [place] stamping press operator [phone] documented in this encounter Plan of Treatment Upcoming Encounters Date Type Department Care Team (Late st Contact Info) Description 05/24/2023 2:00 PM EST [facility] [address] [place] [address] Brinda Gómez RN [address] [place] [address] Scheduled Referrals Name Type Priority Associated Diagnoses Order Schedule OTOLARYNGOLOGY REFERRAL OP Referral Within 10 days (routine) Pulsatile tinnitus, right ear Ordered: 05/20/2023 Health Maintenance Due Date Last Done Comments [...] Additional history exists DXA Scan 05/28/2022 05/28/2020, 06/0 08/2013, 09/12/2010, Additional history exists DTaP,Tdap,and Td [...] D LEVEL ONCE IN A LIFETIME-USE SMARTSET# [id number] Completed 05/08/2019, 05/27/2012, 11/03/2010 LUNG CANCER SCREENING - USE SMARTSET [id number] Completed 05/17/2019, 06/30/2017, 09/12/2015 GARDASIL-HPV IMMUNIZATION SERIES Aged Out No longer eligible based on patient's age to complete this topic MENINGOCOCCAL (MENACTRA/MENVEO) Aged Out No longer eligible based on patient's age to complete this topic documented as of this encounter Medical Devices Not on filedocumented as of this encounter Visit Diagnoses Diagnosis Pulsatile tinnitus, right ear- Primary documented in this encounter Advance Directives Documents on File Type Date Recorded Patient Cocoa Milling Machine Operator Expl anation POLST 02/04/2023 [place] OR DERS FOR LIFE-SUSTAINING TREATMENT POLST 06/17/2021 [place] OR DERS FOR LIFE-SUSTAINING TREATMENT Care Teams Installation And Service Technician Relationship Specialty Start Date End Date Damir De La Cruz MD [address] [place] [address] PCP - General 04/04/00 documented as of this encounter
--- OUTSIDE RECORDS SUMMARY | 2023-06-13 13:07 | External Medical Summary | Summary of Care ---
Author Name Unknown Organization [facility] Address [address] [place] [address] Phone [phone] Care Team Providers Care Architectural Design Lecturer Name Role Phone Damir De La Cruz MD Primary Care Provider +1- [phone] Reason for Visit * Reason Onset Date Comments [facility]: Maintenance 04/14/2023 Encounter Details Date Type Department Care Team Description 04/14/2023 Telephone [facility], [facility] [address] [place] [address] [facility], Nurse [facility] [address] [place] [address] [facility]: Maintenance Allergies Active Allergy Reactions Severity Noted Date [...] 0 Active guaifenesin ER (MUCINEX) 600 MG [id number]:CREPING MACHINE OPERATOR HELPER D, severe (HCC),Chronic cough Take 1 Tab [...] current use of insulin ([facility]) Take 1 Tablet by mouth in [...] a day 120 mL 11 01/07/2023 Active Ipratropium-Albuter ol 0.5-2.5 (3) MG/3ML Inhalation [...] (shortness of breath). 30 mL 0 03/29/2023 Active documented as of this encounter (statuses [...] Telephone Encounter - Cecille Talbot RN - 04/14/2023 3:52 PM EDT Phone call from patient states she missed a call from [facility] and is returning call. Chart reviewed, patient has PC scheduled today with provider Emeka Campbell. TT message sent to Emeka Campbell, did attempt to call patient, will call patient back at [phone]. Cecille Talbot RN, BSN [facility] spa associate Navigator documented in this encounter Plan of Treatment Upcoming Encounters Date Type Specialty Care Team Description 04/19/2023 Home Visit [facility] Brinda Gómez, RN [address] [place] [address] Health Maintenance Due Date Last Done Comments [...] D LEVEL ONCE IN A LIFETIME-USE SMARTSET# [id number] Completed 05/08/2019, 05/27/2012, 11/03/2010 LUNG CANCER SCREENING - USE SMARTSET [id number] Completed 05/17/2019, 06/30/2017, 09/12/2015 GARDASIL-HPV IMMUNIZATION SERIES [...] Documents on File Type Date Recorded Patient Backshoe Person Expl anation POLST 02/04/2023 [place] OR DERS FOR LIFE-SUSTAINING TREATMENT POLST 06/17/2021 [place] OR DERS FOR LIFE-SUSTAINING TREATMENT Care Teams Architectural Design Lecturer Relationship Specialty Start Date End Date Damir De La Cruz MD [address] [place] [address] PCP - General 04/04/00 documented as of this encounter
--- OUTSIDE RECORDS SUMMARY | 2023-06-13 13:07 | External Medical Summary | Summary of Care ---
Author Name Unknown Organization [facility] Address [address] [place] [address] Phone [phone] Care Team Providers Care Extruder Operator Helper Name Role Phone Damir De La Cruz MD Primary Care Provider +1- [phone] Reason for Referral * Evaluate & Treat - Unlimited Visits (Within 10 days (routine)) - Authorized Specialty Diagnoses / Procedures Referred By Roxane dennison Referred To Contact Otolaryngology Diagnoses Pulsatile tinnitus, right ear Justino Lua PA-C [address] [place] [address] Referral ID Status Reason Start Date Expiration Date Visits Requested Visits Authorized [id number] Authorized Specialty Services Required 3 [phone] Question Answer Referral Priority Within 10 days (routine) Where should this appointment be scheduled? [facility] Reason for Referral Ear Conditions - "pulsatile tinnitus" Specific Condition: Tinnitus - "pulsatile tinnitus" Comments Patient scheduling preferences (day/time): Transportation issues/needs: Service location preference: This today her evaluated stuck good advocate twice auto parts salesperson to make aware of appointment: [facility] Reason for Visit * Reason Onset Date Comments [facility]: Acute 05/20/2023 Encounter Details Date Type Department Care Team (Late st Contact Info) Description 05/20/2023 Telephone [facility], [facility] [address] [facility] [place] [address] Region, Nurse [address] [place] [address] [facility]: Acute Allergies Active Allergy Reactions Criticality Noted Date Comments Prednisone Psych complications 10/23/2008 intolerance documented as of this encounter (statuses as of 05/20/2023) Medications Medication Sig Dispensed Refills Start Date [...] 0 Active guaifenesin ER (MUCINEX) 600 MG QU80Oonnuxpsweo:GEOSPATIAL SCIENTIST D, severe (HCC),Chronic cough Take 1 Tab [...] as of this encounter (statuses as of 05/20/2023) Active Problems Problem Noted Date Diagnosed Date [...] as of this encounter (statuses as of 05/20/2023) Resolved Problems Problem Noted Date Diagnosed Date [...] as of this encounter (statuses as of 05/20/2023) Immunizations Name Administration Dates Next Due COVID-19 [...] Pace RN - 05/20/2023 3:44 PM EST [facility] senior mortgage underwriter Acute Call Date: 05/20/2023 Time: 3:44 PM Name: Iris Goodwin : 1955 Caller: Iris Relationship to Self Chief Complaint Patient presents with [email or web address] At Home: Acute HPI: Iris Goodwin is a 67 year old female that is calling [email or web address] at Home Intake to report pounding inR [...] waxcleaned out of her R ear by [facility] nurse last home visit. Patient has had problems with R ear for some time. Patient has appt with Check Out Clerk 12/02/2014. Suggested she call for a earlier [...] ear Tylenol for discomfort. Follow up with security support analyst Treatment/Plan: (need to report) Level of call: Non-Acute Recommended treatment plan: PC scheduled. Clinical advice given over the phone Routing to care team to review and make recommendations if warranted. Call back instructions provided to patient. Adela Pace. TASIA [facility] senior mortgage underwriter [phone] documented in this encounter Plan of Treatment Upcoming Encounters Date Type Department Care Team (Late st Contact Info) Description 05/21/2023 2:30 PM EST Scheduled Telephone [facility], [facility] [address] [place] [address] Coordinator, [facility] [address] [place] [address] 05/24/2023 2:00 PM EST [facility] [address] [place] [address] Brinda Gómez RN [address] [facility] [place] [address] Scheduled Referrals Name Type Priority Associated Diagnoses [...] D LEVEL ONCE IN A LIFETIME-USE SMARTSET# [id number] Completed 05/08/2019, 05/27/2012, 11/03/2010 LUNG CANCER SCREENING - USE SMARTSET [id number] Completed 05/17/2019, 06/30/2017, 09/12/2015 GARDASIL-HPV IMMUNIZATION SERIES [...] Documents on File Type Date Recorded Patient Electrotype Servicer Expl anation POLST 02/04/2023 [place] OR DERS FOR LIFE-SUSTAINING TREATMENT POLST 06/17/2021 [place] OR DERS FOR LIFE-SUSTAINING TREATMENT Care Teams Extruder Operator Helper Relationship Specialty Start Date End Date Damir De La Cruz MD [address] [place] [address] PCP - General 04/04/00 documented as of this encounter
--- OUTSIDE RECORDS SUMMARY | 2023-06-13 13:07 | External Medical Summary | Summary of Care ---
Author Name Unknown Organization [facility] Address [address] [place] [address] Phone [phone] Care Team Providers Care Seo Assistant Name Role Phone Damir De La Cruz MD Primary Care Provider +1- [phone] Encounter Details Date Type Department Care Team (Late st Contact Info) Description 01/15/2023 Population Health External Data Unspecified Department Allergies Active Allergy Reactions Criticality Noted Date Comments Prednisone Psych complications 10/23/2008 intolerance documented as of this encounter (statuses as of 05/17/2023) Medications Medication Sig Dispensed Refills Start Date [...] 0 Active guaifenesin ER (MUCINEX) 600 MG [id number]:VERTICAL CONTOUR BAND SAW OPERATOR D, severe (HCC),Chronic cough Take 1 Tab [...] nephropathy, without long-term current use of insulin ([facility]) Take 1 Tablet by mouth [...] every 6 hours as needed. 0 Active documented as of this encounter (statuses as of 05/17/2023) Active Problems Problem Noted Date Diagnosed Date [...] as of this encounter (statuses as of 05/17/2023) Resolved Problems Problem Noted Date Diagnosed Date Resolved Date Depression, unspecified 03/25/[address]32 07/2022 Type 2 diabetes mellitus wit h hemoglobin [...] as of this encounter (statuses as of 05/17/2023) Immunizations Name Administration Dates Next Due COVID-19 mRNA, LNP-s, No Pre serve, 2-Dose Series (Pfizer) 10/03/2020,09/12/2020 Pneumococcal Polysaccharide PPV23 (Pneumovax) TD - Tetanus/Diptheria (ADULT) 08/12/2007 TDAP (age 10 and older)(Boostrix) 11/15/2012 11/15/2022 documented as of this encounter Social History Tobacco Use Types Packs/Day Years Used Date Smoking Tobacco: Every Day Cigarettes 2 25 Smokeless Tobacco: Never Comments:tried to quit with patches 1989 Alcohol Use Standard Drinks/Week Comments Yes 0 (1 standard drink = 0.6 oz [...] on file documented as of this encounter Plan of Treatment Upcoming Encounters Date Type Department Care Team (Late st Contact Info) Description 05/24/2023 2:00 PM EST [facility], [facility] [address] [place] [address] Brinda Gómez RN [address] [place] [address] Health Maintenance Due Date Last Done Comments [...] D LEVEL ONCE IN A LIFETIME-USE SMARTSET# [id number] Completed 05/08/2019, 05/27/2012, 11/03/2010 LUNG CANCER SCREENING - USE SMARTSET [id number] Completed 05/17/2019, 06/30/2017, 09/12/2015 GARDASIL-HPV IMMUNIZATION SERIES Aged Out No longer eligible based on patient's age to complete this topic MENINGOCOCCAL (MENACTRA/MENVEO) Aged Out No longer eligible based on patient's age to complete this topic documented as of this encounter Medical Devices Not on filedocumented as of this encounter Advance Directives Documents on File Type Date Recorded Patient Broadcast Operations Engineer Expl anation POLST 02/04/2023 [place] OR DERS FOR LIFE-SUSTAINING TREATMENT POL 06/17/2021 [place] OR DERS FOR LIFE-SUSTAINING TREATMENT Care Teams Seo Assistant Relationship Specialty Start Date End Date Damir De La Cruz MD [address] [place] [address] PCP - General 04/04/00 documented as of this encounter
--- OUTSIDE RECORDS SUMMARY | 2023-06-13 13:07 | External Medical Summary | Summary of Care ---
Author Name Unknown Organization [facility] Address [address] [place] [address] Phone [phone] Care Team Providers Care Contact Centre Supervisor Name Role Phone Damir De La Cruz MD Primary Care Provider +1- [phone] Reason for Visit * Reason Onset Date Comments [facility]: Maintenance 03/26/2023 Encounter Details Date Type Department Care Team Description 03/26/2023 Telephone [facility], [facility] [address] [facility] [place] [address] [facility], Nurse [facility] [address] [place] [address] [facility]: Maintenance Allergies Active Allergy Reactions Severity Noted Date Comments Prednisone Psych complications 10/23/2008 intolerance documented as of this encounter (statuses as of 03/29/2023) Medications Medication Sig Dispensed Refills Start Date [...] 0 Active guaifenesin ER (MUCINEX) 600 MG MG64Bndtaocvtds:[place] PD, severe (HCC),Chronic cough Take 1 Tab [...] of breath). 30 mL 0 03/29/2023 Active Morphine Sulfate (Concentrate) 100 MG/5ML Oral Solution Take 0.25 mL by mouth every 4 hours as needed (shortness of breath). 30 mL 0 03/04/2023 3 Discontinue d(Refill) documented as of this encounter (statuses as of 03/29/2023) Active Problems Problem Noted Date Hyperlipidemia 03/25/2023 [...] as of this encounter (statuses as of 03/29/2023) Resolved Problems Problem Noted Date Resolved Date [...] as of this encounter (statuses as of 03/29/2023) Immunizations Name Administration Dates Next Due COVID-19 [...] Telephone Encounter - Dallas Campbell PA-C - 03/29/2023 11:46 AM EDT I have reviewed the patients controlled substance dispensing history in the Prescription Drug Monitoring Program in compliance with the [place] regulations before prescribing a controlled substance. Last Tox Screen Results: Results for orders placed or performed in visit on 12/07/19 TOX SCREEN, URINE, W/O CONFIRMATION Result Value Amphetamine NEGATIVE Benzodiazepines NEGATIVE Cannabinoids NEGATIVE Cocaine Metabolite NEGATIVE HYDROCODONE NEGATIVE Morphine / Codeine NEGATIVE OXYCODONE NEGATIVE METHADONE METABOLITE NEGATIVE NOTE: THE ABOVE SCREENING RESULTS ARE PRESUMPTIVE AND CAN ONLY BE USED FOR MEDICAL PURPOSES. CONFIRMATORY TESTING IS AVAILABLE UPON REQUEST. Cutoff Concentration Results for orders placed or performed in visit on 08/02/18 TOX SCREEN, URINE, W/ CONFIRMATION Result Value Amphetamine NEGATIVE Barbiturates NEGATIVE Benzodiazepines NEGATIVE Cannabinoids NEGATIVE Cocaine Metabolite NEGATIVE Morphine / Codeine NEGATIVE METHADONE METABOLITE NEGATIVE OXYCODONE NEGATIVE TOX COMMENT THE ABOVE SCREENING RESULTS ARE PRESUMPTIVE AND CAN ONLY BE USED FOR MEDICAL PURPOSES. POSITIVE RESULTS REFLEX TO CONFIRMATORY TESTING. Cutoff Concentration *Note: Due to a large number of results and/or encounters for the requested time period, some results have not been displayed. A complete set of results can be found in Results Review. Refill appropriate. Sent to pharmacy as requested. * Telephone Encounter - Alivia Montoya RN - 03/26/2023 4:06 PM EDT Call received from the pt. Calling for refill request on morphine. Last ordered by Emeka Campbell PA-C. Order pended for review and refill if deemed appropriate documented in this encounter Plan of Treatment Upcoming Encounters Date Type Specialty Care Team Description 04/14/2023 Scheduled Telephone [facility] Dallas Campbell PA-C [address] [place] [address] 04/19/2023 Home Visit [facility] Brinda Gómez RN [address] [place] [address] Health Maintenance Due Date Last Done Comments [...] D LEVEL ONCE IN A LIFETIME-USE SMARTSET# [id number] Completed 05/08/2019, 05/27/2012, 11/03/2010 LUNG CANCER SCREENING - USE SMARTSET [id number] Completed 05/17/2019, 06/30/2017, 09/12/2015 GARDASIL-HPV IMMUNIZATION SERIES [...] Documents on File Type Date Recorded Patient Weave Defect Charting Clerk Expl anation POLST 02/04/2023 [place] OR DERS FOR LIFE-SUSTAINING TREATMENT POLST 06/17/2021 [place] OR DERS FOR LIFE-SUSTAINING TREATMENT Care Teams Contact Centre Supervisor Relationship Specialty Start Date End Date Damir De La Cruz MD [address] [place] [address] PCP - General 04/04/00 documented as of this encounter
--- OUTSIDE RECORDS SUMMARY | 2023-06-13 13:07 | External Medical Summary | Summary of Care ---
Author Name Unknown Organization [facility] Address [address] [place] [address] Phone [phone] Care Team Providers Care Ocean Fishing Guide Name Role Phone Damir De La Cruz MD Primary Care Provider +1- [phone] Reason for Visit * Reason Onset Date Comments [facility]: Maintenance 03/15/2023 Encounter Details Date Type Department Care Team Description 03/15/2023 Telephone [facility], [facility] [address] [place] [address] Brinda Gómez, RN [address] [place] [address] [facility]: Maintenance Allergies Active Allergy Reactions Severity Noted Date Comments Prednisone Psych complications 10/23/2008 intolerance documented as of this encounter (statuses as of 04/10/2023) Medications Medication Sig Dispensed Refills Start Date [...] 0 Active guaifenesin ER (MUCINEX) 600 MG FO70Otevhzimies:[place] PD, severe (HCC),Chronic cough Take 1 Tab [...] Capsule by mouth every afternoon. 0 Active Gabapentin 100 MG Oral Capsule (Neurontin) Take 1 Capsule by mouth at bedtime. 0 Active Morphine Sulfate (Concentrate) 100 MG/5ML Oral Solution Take 0.25 mL by mouth every 4 hours as needed (shortness of breath). 30 mL 0 03/04/2023 3 Discontinue d(Refill) documented as of this encounter (statuses as of 04/10/2023) Active Problems Problem Noted Date Hyperlipidemia 03/25/2023 [...] as of this encounter (statuses as of 04/10/2023) Resolved Problems Problem Noted Date Resolved Date [...] as of this encounter (statuses as of 04/10/2023) Immunizations Name Administration Dates Next Due COVID-19 [...] Telephone Encounter - Brinda Gómez RN - 03/15/2023 3:14 PM EDT Pt is requesting appt on 03/19/23 with Ana Luisa Thomasheber be cancelled. She saw PCP not too long ago and it is too taxing for her to get out again. Appt not needed. Can you please cancel this for her ? Thank you! documented in this encounter Plan of Treatment Upcoming Encounters Date Type Specialty Care Team Description 04/14/2023 Scheduled Telephone [facility] Dallas Campbell PA-C [address] [place] [address] 04/19/2023 Home Visit [facility] Brinda Gómez, RN [address] [place] [address] Health Maintenance Due Date Last Done Comments [...] D LEVEL ONCE IN A LIFETIME-USE SMARTSET# [id number] Completed 05/08/2019, 05/27/2012, 11/03/2010 LUNG CANCER SCREENING - USE SMARTSET [id number] Completed 05/17/2019, 06/30/2017, 09/12/2015 GARDASIL-HPV IMMUNIZATION SERIES [...] Documents on File Type Date Recorded 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
--- OUTSIDE RECORDS SUMMARY | 2023-06-13 13:07 | External Medical Summary | Summary of Care ---
Author Name Unknown Organization [facility] Address [address] [place] [address] Phone [phone] Care Team Providers Care Information Technology Internship Name Role Phone Damir De La Cruz MD Primary Care Provider +1- [phone] Reason for Visit * Reason Onset Date Comments [facility]: Acute 05/20/2023 Encounter Details Date Type Department Care Team (Late st Contact Info) Description 05/20/2023 Telephone [facility], [facility] [address] [facility] [place] [address] [facility], Nurse [facility] [address] [facility] [place] [address] [facility]: Acute Allergies Active Allergy [...] 0 Active guaifenesin ER (MUCINEX) 600 MG [id number]:SENIOR ENLISTED ADVISOR D, severe (HCC),Chronic cough Take 1 Tab by mouth 2 times a day. 60 Tab 5 05/03/2019 Active Zinc Sulfate 220 (50 Zn) MG Oral Capsule Take 1 Capsule by mouth in the morning. 0 Active Multi-Day Oral Tablet Take 1 Tab by mouth daily. 0 Active Spiriva HandiHaler 18 MCG Inhalation Capsule (tiotropium bromide)Indications :COPD, severity to be determined ([facility]) Inhale 1 Capsule (2 Puffs) in the morning by mouth. For inhaler only, do not swallow.. 90 Capsule 3 07/30/2021 Active Additional Information Patient taking differently:1 Capsule Inhalation Daily(AM), For inhaler only, do not swallow.,Indications: COPD, Reported on 01/12/2023 Azithromycin 250 MG Oral Tablet (Zithromax Z-Miller)Indications:C OPD, severe ([facility]) Take two tablets by mouth on first [...] nephropathy, without long-term current use of insulin ([facility]) Take 1 Tablet by mouth in [...] Date Diagnosed Date Resolved Date Depression, unspecified 03/25/2023 09/07/2022 Type 2 diabetes mellitus wit h hemoglobin [...] encounter Miscellaneous Notes * Telephone Encounter - Adela Pace RN - 05/20/2023 3:44 PM EST [facility] overhead foreman Acute Call Date: 05/20/2023 Time: 3:44 PM Name: Iris Goodwin : 1955 Caller: Iris Relationship to Self Chief Complaint Patient presents with [facility]: Acute HPI: Iris Goodwin is a 67 year old female that is calling [facility] Intake to report pounding inR [...] waxcleaned out of her R ear by [facility] nurse last home visit. Patient has had problems with R ear for some time. Patient has appt with [facility] 12/02/2014. Suggested she call for a earlier [...] ear Tylenol for discomfort. Follow up with detective sergeant Treatment/Plan: (need to report) Level of call: Non-Acute Recommended treatment plan: PC scheduled. Clinical advice given over the phone Routing to care team to review and make recommendations if warranted. Call back instructions provided to patient. Adela Pace. TASIA [facility] overhead foreman [phone] documented in this encounter Plan of Treatment Upcoming Encounters Date Type Department Care Team (Late st Contact Info) Description 05/21/2023 2:30 PM EST Scheduled Telephone [facility] [place], [address] [place] [address] Coordinator, [place] [address] [address] [place] [address] 05/24/2023 2:00 PM EST Home Visit [facility], [facility] [address] [place] [address] Brinda Gómez RN [address] [place] [address] Health Maintenance Due Date Last Done Comments [...] D LEVEL ONCE IN A LIFETIME-USE SMARTSET# [id number] Completed 05/08/2019, 05/27/2012, 11/03/2010 LUNG CANCER SCREENING - USE SMARTSET [id number] Completed 05/17/2019, 06/30/2017, 09/12/2015 GARDASIL-HPV IMMUNIZATION SERIES Aged Out No longer eligible based on patient's age to complete this topic MENINGOCOCCAL (MENACTRA/MENVEO) Aged Out No longer eligible based on patient's age to complete this topic documented as of this encounter Medical Devices Not on filedocumented as of this encounter Advance Directives Documents on File Type Date Recorded Patient Harbor Engineer Expl anation POLST 02/04/2023 [place] OR DERS FOR LIFE-SUSTAINING TREATMENT POLST 06/17/2021 [place] OR DERS FOR LIFE-SUSTAINING TREATMENT Care Teams Information Technology Internship Relationship Specialty Start Date End Date Damir De La Cruz MD [address] [place] [address] PCP - General 04/04/00 documented as of this encounter
--- OUTSIDE RECORDS SUMMARY | 2023-06-13 13:07 | External Medical Summary | Summary of Care ---
Author Name Unknown Organization [facility] Address [address] [place] [address] Phone [phone] Care Team Providers Care Cv/Cvn Cv Tsc System Operator Name Role Phone Damir De La Cruz MD Primary Care Provider +1- [phone] Reason for Visit * Reason Onset Date Comments Acute Problem Follow Up 05/21/2023 Encounter Details Date Type Department Care Team (Late st Contact Info) Description 05/21/2023 2:30 PM EST Scheduled Telephone [facility] [place], [facility] [address] [facility] [place] [address] Coordinator, [facility] [address] [facility] [place] [address] Allergies Active Allergy Reactions Criticality Noted Date Comments Prednisone Psych complications 10/23/2008 intolerance documented as of this encounter (statuses as of 05/21/2023) Medications Medication Sig Dispensed Refills Start Date [...] 0 Active guaifenesin ER (MUCINEX) 600 MG OT16Nrnupdesdvj:EMERGENCY ROOM DOCTOR D, severe (HCC),Chronic cough Take 1 Tab [...] as of this encounter (statuses as of 05/21/2023) Active Problems Problem Noted Date Diagnosed Date [...] as of this encounter (statuses as of 05/21/2023) Resolved Problems Problem Noted Date Diagnosed Date [...] as of this encounter (statuses as of 05/21/2023) Immunizations Name Administration Dates Next Due COVID-19 [...] Telephone Encounter - Adela Pace RN - 05/21/2023 1:33 PM EST Patient returning [facility] call. Chart reviewed and it was from TASIA Russo to go over provider's recommendations. Went over recommendations. She said the pounding in constant, except when she is on cpap at . She said she will take her BP/Pulse at least 2 x day and document them. She already got message about an ENT referral. She will try and move up audiology appt. She will discuss all this including head/neck scan on Wednesday with TASIA Parry at home visit. PC canceled for tomorrow, no needed. Routed to care team Adela Pace. RN [facility] ramp manager [phone]' * Telephone Encounter - Karan Pro RN - 05/21/2023 12:39 PM EST PC placed to patient to f/u Pounding in R ear Recommendations: [facility] Justino Lua PA-C Move up the audiology appointment to help identify any hearing issues with her ears When the symptoms occur, please have the patient obtain blood pressure and heart rate and document them Possible scan of the head and neck to rule out possible tumor-low suspicion as well as an aneurysm/arterial venous malformation Ear exam, possibly ENT No answer at time of call today. left requesting call back to [facility]. Additional PC scheduled for tomorrow d/t no answer today. Patient encouraged to call [facility] intake phone number for all urgent, non-emergent health issues, phone number provided. documented in this encounter Plan of Treatment Upcoming Encounters Date Type Department Care Team (Late st Contact Info) Description 05/24/2023 2:00 PM EST Home Visit [facility], [facility] [address] [place] [address] Brinda Gómez RN [address] [place] [address] Health Maintenance Due Date Last Done Comments [...] D LEVEL ONCE IN A LIFETIME-USE SMARTSET# [id number] Completed 05/08/2019, 05/27/2012, 11/03/2010 LUNG CANCER SCREENING - USE SMARTSET [id number] Completed 05/17/2019, 06/30/2017, 09/12/2015 GARDASIL-HPV IMMUNIZATION SERIES Aged Out No longer eligible based on patient's age to complete this topic MENINGOCOCCAL (MENACTRA/MENVEO) Aged Out No longer eligible based on patient's age to complete this topic documented as of this encounter Medical Devices Not on filedocumented as of this encounter Advance Directives Documents on File Type Date Recorded Patient Rolled Oats Mill Operator Expl anation POLST 02/04/2023 [place] OR DERS FOR LIFE-SUSTAINING TREATMENT POLST 06/17/2021 [place] OR DERS FOR LIFE-SUSTAINING TREATMENT Care Teams Cv/Cvn Cv Tsc System Operator Relationship Specialty Start Date End Date Damir De La Cruz MD [address] [place] [address] PCP - General 04/04/00 documented as of this encounter
--- OUTSIDE RECORDS SUMMARY | 2023-06-13 13:07 | External Medical Summary | Summary of Care ---
Author Name Unknown Organization [facility] Address [address] [place] [address] Phone [phone] Care Team Providers Care Healthcare Educator Name Role Phone Damir De La Cruz MD Primary Care Provider +1- [phone] Reason for Visit * Reason Onset Date Comments [facility]: Maintenance 04/19/2023 Encounter Details Date Type Department Care Team Description 04/19/2023 Telephone [facility], [facility] [address] [place] [address] Services, Scheduling [address] [place] [address] [facility]: Maintenance Allergies Active Allergy Reactions Severity Noted Date Comments Prednisone Psych complications 10/23/2008 intolerance documented as of this encounter (statuses as of 04/19/2023) Medications Medication Sig Dispensed Refills Start Date [...] 0 Active guaifenesin ER (MUCINEX) 600 MG [id number]:CONTINUOUS PICKLING LINE PICKLER HELPER D, severe (HCC),Chronic cough Take 1 [...] long-term current use of insulin ([facility]) Take 1 Tablet by mouth in the morning. 90 Tablet 3 07/21/2022 Active Acetaminophen 325 MG Oral Tablet Take 1 Tablet by mouth every 6 hours as needed. 0 Active Budesonide 0.5 MG/2ML Inhalation Suspension (Pulmicort) inhale one vial (0.5 mg) via nebulizer twice daily 360 mL 01/06/2023 Active Arformoterol Tartrate 15 MCG/2ML Inhalation Nebulization Solution (Brovana) inhale one vial (2 mL) via nebulizer twice a day 120 mL 01/07/2023 Active Ipratropium-Albuter ol 0.5-2.5 (3) MG/3ML [...] of breath). 30 mL 0 04/14/2023 Active documented as of this encounter (statuses as of 04/19/2023) Active Problems Problem Noted Date Hyperlipidemia 03/25/2023 [...] as of this encounter (statuses as of 04/19/2023) Resolved Problems Problem Noted Date Resolved Date [...] as of this encounter (statuses as of 04/19/2023) Immunizations Name Administration Dates Next Due COVID-19 [...] encounter Miscellaneous Notes * Telephone Encounter - ANGELA Reynoso - 04/19/2023 11:20 AM EDT Patient is agreeable to rescheduled visit with Ambrosio Gómez RN Rescheduled fro 04/29/23 at 4pm ANGELA Reynoso documented in this encounter Plan of Treatment Upcoming Encounters Date Type Specialty Care Team Description 04/29/2023 Home Visit [facility] Brinda Gómez RN [address] [place] [id number] Health Maintenance Due Date Last Done Comments [...] D LEVEL ONCE IN A LIFETIME-USE SMARTSET# [id number] Completed 05/08/2019, 05/27/2012, 11/03/2010 LUNG CANCER SCREENING - USE SMARTSET [id number] Completed 05/17/2019, 06/30/2017, 09/12/2015 GARDASIL-HPV IMMUNIZATION SERIES [...] Documents on File Type Date Recorded Patient Orthodontic Technician Assistant Expl anation POLST 02/04/2023 [place] OR DERS FOR LIFE-SUSTAINING TREATMENT POLST 06/17/2021 [place] OR DERS FOR LIFE-SUSTAINING TREATMENT Care Teams Healthcare Educator Relationship Specialty Start Date End Date Damir De La Cruz MD [address] [place] [address] PCP - General 04/04/00 documented as of this encounter
--- OUTSIDE RECORDS SUMMARY | 2023-06-13 13:07 | External Medical Summary | Summary of Care ---
Author Name Unknown Organization [facility] Address [address] [place] [address] Phone [phone] Care Team Providers Care Biosolids Management Technician Name Role Phone Damir De La Cruz MD Primary Care Provider +1- [phone] Reason for Visit * Reason Onset Date Comments Medication Refill 03/29/2023 Encounter Details Date Type Department Care Team Description 03/29/2023 Refill [facility], [facility] [address] [facility] [place] [address] [facility], Nurse [address] [place] [address] Allergies Active Allergy Reactions Severity Noted Date [...] 0 Active guaifenesin ER (MUCINEX) 600 MG VP69Nulxxptvwoz:SENIOR QUALITY ASSURANCE ENGINEER D, severe (HCC),Chronic cough Take 1 Tab [...] nephropathy, without long-term current use of insulin ([facility]) Take 1 Tablet by mouth [...] Capsule by mouth at bedtime. 0 Active documented as of this encounter [...] encounter Miscellaneous Notes * Telephone Encounter - Letty Burgess RN - 03/29/2023 12:58 PM EDT Outgoing call to pt and LMOM that morphine refill was sent. Letty MILLAN, RN [facility] Intake Triage Coordinator [phone] * Telephone Encounter - Dallas Campbell PA-C - 03/29/2023 11:53 AM EDT Refilled 03/29 * Telephone Encounter - Dallas Campbell PA-C - 03/29/2023 11:53 AM EDTRefused Prescriptions: Disp Refills Morphine Sulfate (Concentrate) 100 MG/5ML *30 mL 0 Sig: Take 0.25 mL by mouth every 4 hours as needed (shortness of breath). Refused By: DALLAS CAMPBELL Reason for Refusal: Duplicate Request * Telephone Encounter - Letty Burgess RN - 03/29/2023 11:40 AM EDT Received call from pt who is requesting a refill of Morphine. Refill pended Will send to Provider. TT sent to Winnie Campbell PA-C as the pt states that she is completely out of this medication Letty MILLAN, RN [facility] Intake Triage Coordinator [phone] documented in this encounter Plan of Treatment Upcoming Encounters Date Type Specialty Care Team Description 04/14/2023 Scheduled Telephone [facility] Dallas Campbell PA-C [address] [place] [address] 04/19/2023 Home Visit [facility] Brinda Gómez RN [address] [place] [address] Health Maintenance Due Date Last Done Comments [...] D LEVEL ONCE IN A LIFETIME-USE SMARTSET# [id number] Completed 05/08/2019, 05/27/2012, 11/03/2010 LUNG CANCER SCREENING - USE SMARTSET [id number] Completed 05/17/2019, 06/30/2017, 09/12/2015 GARDASIL-HPV IMMUNIZATION SERIES [...] Documents on File Type Date Recorded Patient Director Federal Expl anation POLST 02/04/2023 [place] OR DERS FOR LIFE-SUSTAINING TREATMENT POL 06/17/2021 [place] OR DERS FOR LIFE-SUSTAINING TREATMENT Care Teams Biosolids Management Technician Relationship Specialty Start Date End Date Damir De La Cruz MD [address] [place] [address] PCP - General 04/04/00 documented as of this encounter
--- OUTSIDE RECORDS SUMMARY | 2023-06-13 13:07 | External Medical Summary | Summary of Care ---
Author Name Unknown Organization [facility] Address [address] [place] [address] Phone [phone] Care Team Providers Care Firebrick Layer Name Role Phone Damir De La Cruz MD Primary Care Provider +1- [phone] Reason for Visit * Reason Comments [facility]: Maintenance Encounter Details Date Type Department Care Team (Late st Contact Info) Description 05/04/2023 2:30 PM EDT Home Visit [facility], [facility] [address] [place] [address] Brinda Gómez, RN [address] [facility] [address] Allergies Active Allergy Reactions Criticality Noted Date Comments Prednisone Psych complications 10/23/2008 intolerance documented as of this encounter (statuses as of 05/04/2023) Medications Medication Sig Dispensed Refills Start Date [...] 0 Active guaifenesin ER (MUCINEX) 600 MG [id number]:[place] PD, severe (HCC),Chronic cough Take 1 Tab [...] of breath). 30 mL 0 05/04/2023 Active Morphine Sulfate (Concentrate) 100 MG/5ML Oral Solution Take 0.25 mL by mouth every 4 hours as needed (shortness of breath). 30 mL 0 04/14/2023 Discontinue d(Refill) documented as of this encounter (statuses as of 05/04/2023) Active Problems Problem Noted Date Diagnosed Date [...] as of this encounter (statuses as of 05/04/2023) Resolved Problems Problem Noted Date Diagnosed Date [...] as of this encounter (statuses as of 05/04/2023) Immunizations Name Administration Dates Next Due COVID-19 [...] Sign Reading Time Taken Comments Blood Pressure 104/64 05/04/2023 2:42 PM EDT Pulse 100 05/04/2023 2:42 PM EDT Temperature 37.3 C (99.1 F) 05/04/2023 2 :42 PM EDT Respiratory Rate 22 05/04/2023 2:42 PM EDT Oxygen Saturation 98% 05/04/2023 2:4 2 PM EDT o2 on at 6 l/min via nc Inhaled Oxygen Concentration - - Weight - - Height - - Body Mass Index - - documented in this encounter Progress Notes * Brinda Gómez RN - 05/04/2023 2:17 PM EDT [facility] Visit Date: 05/04/2023 Time: 2:17 PM Name: Iris Godowin : 1955 Current Concerns: Pt seen for return visit Has been doing debrox about 3x a day since last week Only see small amount of wax on the surface of the inner ear - able to visualize TM Did flush ears per her request and was not able to get any good amt of wax out, only a few small bits. She states she did feel some pressure released Pt reports she has been taking Roxanol 0.25ml every 4 hours - sometimes not even taking when able as she is afraid she will run out TE sent to Dallas Campbell PA-C - he will increase to 0.5ml every 4 hrs as needed Physical Exam: BP 104/64 | Pulse 100 | Temp 37.3 C (99.1 F) | Resp 22 | LMP 07/22/2004 | SpO2 98% Comment: o2 on at 6 l/min via [...] Problems/Symptoms: Review of Systems Constitutional: Negative. HENT: Negative. Eyes: Negative. Respiratory: Positive for cough and shortness of breath. Cardiovascular: Negative. Gastrointestinal: Negative. Genitourinary: Negative. Musculoskeletal: Positive for arthralgias. Skin: Negative. Psychiatric/Behavioral: Negative. Medication Reconciliation: (See medication list) Does patient take medications as ordered: Yes Patient Well Being: PHQ2/9: No questionnaires available. No change in living situation Denies falls MAH-10 Completed this Visit: No. Routine visit and No falls since last visit Advanced Care Planning: POLST. Reinforcement/Education: Educated on home safety: Create a fall [...] exercises that will be right for you. COPD: Pt instructed to: -Call with increased SOB, wheezing, chest tightness, increased cough, increased sputum with change in color or consistency and fever. -Wash hands often -Drink plenty of fluids -Use inhalers as directed, do not stop or skip doses -Avoid stress -Rest when tired or SOB -Avoid triggers -Clean inhalers once a week Reinforced safety education and fall prevention. and Reinforced medication regimen. Timing., Dosing., and Purspose. Treatment/Plan: Continued meds as prescribed/reviewed Dr. preston is pulmonary thru [facility] Rescue inhaler of albuterol prn Neb txs as prescribed - be sure to clean neb supplies Oxygen at 6-7 l/min via nc continuously In paid cg program - gets reimbursement from [facility] - cg three times a week (8hrs each week) Uses Trillogy NIV overnight Morphine sulfate prn dyspnea- TE sent to provider for increase in dose Palliative involved Senna for constipation Home Interventions Provided: Home Intervention: Other; eval Consulted PCP/Specialist Reinforced current Plan of Care, including self-management and medication regimen Patient's 'Red Flags': Can't catch breath Increased fatigue/weakness Chest feels tight Patient Needs to Remember: Call [facility] at with any new or worsening health [...] visits & schedule home visit with care automobile washer steam(s)as indicated. Provider is in agreement with Plan of Care: Yes Scheduled to follow up with patient in 3 weeks. Brinda Gómez RN 05/04/2023 2:17 PM documented in this encounter Plan of Treatment Upcoming Encounters Date Type Department Care Team (Late st Contact Info) Description 05/24/2023 2:00 PM EST Home Visit [facility], [facility] [address] [facility] [place] [address] Brinda Gómez RN 132 [facility] [place] [address] Health Maintenance Due Date Last Done Comments [...] ASSESSMENT COMPLETED IN PAST YEAR FOR COPD 04/29/2024 04/29/2023 Lipid Panel 01/13/2026 01/13/2021, 10/2019, 02/09/2018, Additional history exists Pap Smear Discontinued 08/12/2016, 02/2017, 11/15/2012, Additional history exists VITAMIN D LEVEL ONCE IN A LIFETIME-USE SMARTSET# 92217 Completed 05/08/2019, 05/27/2012, 11/03/2010 LUNG CANCER SCREENING - USE SMARTSET 07658 Completed 05/17/2019, 06/30/2017, 09/12/2015 GARDASIL-HPV IMMUNIZATION SERIES Aged Out No longer eligible based on patient's age to complete this topic MENINGOCOCCAL (MENACTRA/MENVEO) Aged Out No longer eligible based on patient's age to complete this topic documented as of this encounter Medical Devices Not on filedocumented as of this encounter Advance Directives Documents on File Type Date Recorded Patient Forensic Investigator Expl anation POLST 02/04/2023 [place] OR DERS FOR LIFE-SUSTAINING TREATMENT POLST 06/17/2021 [place] OR DERS FOR LIFE-SUSTAINING TREATMENT Care Teams Firebrick Layer Relationship Specialty Start Date End Date Damir De La Cruz MD [address] [place] [address] PCP - General 04/04/00 documented as of this encounter"
--- OUTSIDE RECORDS SUMMARY | 2023-06-13 13:07 | External Medical Summary | Summary of Care ---
Author Name Unknown Organization [facility] Address [address] [place] [address] Phone [phone] Care Team Providers Care Punch Machine Hand Name Role Phone Damir De La Cruz MD Primary Care Provider +1- [phone] Reason for Visit * Reason Onset Date Comments Acute Problem Follow Up 05/21/2023 Encounter Details Date Type Department Care Team (Late st Contact Info) Description 05/21/2023 2:30 PM EST Scheduled Telephone [facility] 132 [facility] [place] [address] Coordinator, [facility] 132 [facility] [place] [address] Allergies Active Allergy Reactions Criticality Noted Date [...] 0 Active guaifenesin ER (MUCINEX) 600 MG [id number]:REGISTERED DENTAL ASSISTANT RDA D, severe (HCC),Chronic cough Take 1 Tab [...] encounter Miscellaneous Notes * Telephone Encounter - Karan Pro RN - 05/21/2023 12:39 PM EST PC placed to patient to f/u Pounding in R ear Recommendations: [facility] Justino Lua PA-C Move up the audiology [...] call today. left requesting call back to [facility]. Additional PC scheduled for tomorrow d/t no answer today. Patient encouraged to call [facility] intake phone number for all urgent, non-emergent health issues, phone number provided. documented in this encounter Plan of Treatment Upcoming Encounters Date Type Department Care Team (Late st Contact Info) Description 05/22/2023 9:30 AM EST Scheduled Telephone [facility], [facility] [address] [place] [address] [facility], Nurse [facility] [address] [place] [address] 05/24/2023 2:00 PM EST Home Visit [facility], [facility] [address] [place] [address] Brinda Gómez RN [address] [place] [address] Health Maintenance Due Date Last Done Comments [...] D LEVEL ONCE IN A LIFETIME-USE SMARTSET# [id number] Completed 05/08/2019, 05/27/2012, 11/03/2010 LUNG CANCER SCREENING - USE SMARTSET 23329 Completed 05/17/2019, 06/30/2017, 09/12/2015 GARDASIL-HPV IMMUNIZATION SERIES Aged Out No longer eligible based on patient's age to complete this topic MENINGOCOCCAL (MENACTRA/MENVEO) Aged Out No longer eligible based on patient's age to complete this topic documented as of this encounter Medical Devices Not on filedocumented as of this encounter Advance Directives Documents on File Type Date Recorded Patient Warehouse And Receiving Supervisor Expl anation POLST 02/04/2023 [place] OR DERS FOR LIFE-SUSTAINING TREATMENT POLST 06/17/2021 [place] OR DERS FOR LIFE-SUSTAINING TREATMENT Care Teams Punch Machine Hand Relationship Specialty Start Date End Date Damir De La Cruz MD [address] [facility] [place] [place] [address] PCP - General 04/04/00 documented as of this encounter
--- OUTSIDE RECORDS SUMMARY | 2023-06-13 13:08 | External Medical Summary | Summary of Care ---
Author Name Unknown Organization [facility] Address [address] [place] [address] Phone [phone] Care Team Providers Care Practicing Dermatologist Name Role Phone Damir De La Cruz MD Primary Care Provider +1- [phone] Reason for Visit * Reason Onset Date Comments [facility]: Acute 03/01/2023 Encounter Details Date Type Department Care Team Description 03/01/2023 Telephone [facility], [facility] 132 [place] [address] [facility], Nurse [facility] [address] [place] [address] [facility]: Acute Allergies Active Allergy Reactions Severity Noted Date Comments Prednisone Psych complications 10/23/2008 intolerance documented as of this encounter (statuses as of 03/01/2023) Medications Medication Sig Dispensed Refills Start Date [...] 0 Active guaifenesin ER (MUCINEX) 600 MG [id number]:INSIDE WIRER D, severe (HCC),Chronic cough Take 1 Tab [...] nephropathy, without long-term current use of insulin ([facility]) Take 1 Tablet by mouth in the morning. 90 Tablet 3 07/21/2022 Active traZODone HCl 50 MG Oral Tablet (Desyrel) Take 1.5 Tablets by mouth at bedtime. May increase to 2 tab as tolerated or needed for insomnia 180 Tablet 0 11/25/2022 Active Acetaminophen 325 MG Oral Tablet Take [...] Capsule by mouth every afternoon. 0 Active traMADol HCl 50 MG Oral Tablet (Ultram)Indications :Controlled substance agreement signed TAKE 1 TABLET BY MOUTH EVERY 6 HOURS NEEDED FOR MODERATE PAIN 120 Tablet 0 02/05/2023 Active Albuterol Sulfate HFA 108 (90 Base) MCG/ACT Inhalation Aerosol Solution INHALE 2 PUFFS BY MOUTH EVERY 4 HOURS NEEDED FOR SHORTNESS OF BREATH 18 g 0 02/03/2023 Active Morphine Sulfate (Concentrate) 100 MG/5ML Oral Solution Take 0.25 mL by mouth every 4 hours as needed (shortness of breath). 30 mL 0 02/11/2023 Active Pregabalin 25 MG Oral Capsule (Lyrica) Take 1 Capsule by mouth in the morning and 1 Capsule before bedtime. 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 11/18/2021 POLST (Physician Orders for Life-Sustain ing Treatment) 06/17/2021 Controlled substance agreement signed COPD, severe 11/12/2011 DM type 2 causing renal disease 11/05/19 10 Chronic rhinitis 08/22/2002 Tobacco use disorder 12/07/2000 Reflux esophagitis ADJ DISORDER W/DEPRES MOOD Neuropathy documented as of this encounter (statuses as of 03/01/2023) Resolved Problems Problem Noted Date Resolved Date Type 2 diabetes mellitus wit h hemoglobin [...] as of this encounter (statuses as of 03/01/2023) Immunizations Name Administration Dates Next Due COVID-19 [...] encounter Miscellaneous Notes * Telephone Encounter - Selena Varma RN - 03/01/2023 12:58 PM EDT Phone call from patient Requested RNCM to come to home from Wednesday on this week to give her a suppository. She has opioid induced constipation She states she did start the bowel routine per Dr Mariee, but could not give details of what she did or how far she got. Reached out to director re: RNCM seeing patient on Wednesday Return call to patient, went to voice mail. Message left for callback . Will discuss further detail about bowel prep instructions per Dr Mariee and encourage self administration of suppository. Gloria Varma RN, BSN [facility] Intake Triage Coordinator [phone] documented in this encounter Plan of Treatment Upcoming Encounters Date Type Specialty Care Team Description 03/15/2023 Home Visit [facility] Brinda Gómez RN [address] [place] [address] 03/17/2023 Telemedicine [facility] Dallas Campbell PA-C [address] [place] [address] Emilee Flynn, Community Health Co Founder And Chief Strategy Officer [address] [place], [place] [id number] 03/19/2023 Office Visit Family Medicine Ana Luisa Mccalin PA-C [address], [place] [phone] Health Maintenance Due Date Last Done Comments Alpha-1 Antitrypsin 10/16/1973 Hepatitis C Screening 10/16/1973 Cologuard 10/16/2000 Colonoscopy 10/16/2000 Sigmoidoscopy 10/16/2000 Zoster Vaccines (1 of 2) 10/16/2005 Pneumococcal Vaccine: 65+ Years (2 - PCV) 10/23/2009 10/23/2008 Colorectal Cancer Screening 07/23/2016 Fecal Occult Blood Test 07/23/2016 07/23/2015 DIABETES-FOOT EXAM 05/03/2020 05/03/2019, 1 07/12/2017, 08/12/2017, Additional history exists Depression Screening, Annual for Pts 12 and Over 05/03/2020 05/03/2019 COVID-19 Vaccine (3 - Pfizer series) 11/28/2020 [...] ASSESSMENT COMPLETED IN PAST YEAR FOR COPD 02/25/2024 02/24/2023 Lipid Panel 01/13/2026 01/13/2021, 06/0 10/2019, 02/09/2018, Additional history exists DXA Scan 05/28/2027 05/28/2020, 060 08/2013, 09/12/2010, Additional history exists Pap Smear Discontinued 08/12/2016, 02/2017, 11/15/2012, Additional history exists LUNG CANCER SCREENING - USE SMARTSET [id number] Completed 05/17/2019, 06/30/2017, 09/12/2015 GARDASIL-HPV IMMUNIZATION SERIES [...] Documents on File Type Date Recorded Patient Anodizer Expl anation POLST 02/04/2023 [place] OR DERS FOR LIFE-SUSTAINING TREATMENT POLST 06/17/2021 [place] OR DERS FOR LIFE-SUSTAINING TREATMENT Care Teams Practicing Dermatologist Relationship Specialty Start Date End Date Damir De La Cruz MD [address] [place] [address] PCP - General 04/04/00 documented as of this encounter
--- OUTSIDE RECORDS SUMMARY | 2023-06-13 13:08 | External Medical Summary | Summary of Care ---
Author Name Unknown Organization [facility] Address [address] [place] [address] Phone [phone] Care Team Providers Care Wool Hat Hydraulicker Name Role Phone Damir De La Cruz MD Primary Care Provider +1- [phone] Reason for Visit * Reason Onset Date Comments [facility]: Maintenance 03/02/2023 Encounter Details Date Type Department Care Team Description 03/02/2023 Telephone [facility], [facility] [address] [place] [address] Stacey Hdz, Community Health Oceanography Teacher [facility]: Maintenance Allergies Active Allergy Reactions Severity Noted Date Comments Prednisone Psych complications 10/23/2008 intolerance documented as of this encounter (statuses as of 03/02/2023) Medications Medication Sig Dispensed Refills Start Date [...] 0 Active guaifenesin ER (MUCINEX) 600 MG [id number]:ELECTRIC CLOCK MECHANIC D, severe (HCC),Chronic cough Take 1 Tab [...] as of this encounter (statuses as of 03/02/2023) Active Problems Problem Noted Date HTN, goal below 140/90 12/21/2021 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 11/18/2021 POLST (Physician Orders for Life-Sustain ing Treatment) 06/17/2021 Controlled substance agreement signed COPD, severe 11/12/2011 DM type 2 causing renal disease 11/05/19 10 Chronic rhinitis 08/22/2002 Tobacco use disorder 12/07/2000 Reflux esophagitis ADJ DISORDER W/DEPRES MOOD Neuropathy documented as of this encounter (statuses as of 03/02/2023) Resolved Problems Problem Noted Date Resolved Date [...] as of this encounter (statuses as of 03/02/2023) Immunizations Name Administration Dates Next Due COVID-19 [...] encounter Miscellaneous Notes * Telephone Encounter - Stacey Hdz Community Health Oceanography Teacher - 03/02/2023 12:40 PM EDT Patient called and requested to talk to Gloria Maradiaga She asked if she could have her call her at [phone] She stated I could not help her she has been working with Gloria Hdz, ANGELA documented in this encounter Plan of Treatment Upcoming Encounters Date Type Specialty Care Team Description 03/15/2023 Home Visit [facility] Brinda Gómez RN [address] [place] [address] 03/17/2023 Telemedicine [facility] Dallas Campbell PA-C [address] [place] [address] Emilee Flynn, Community Health Oceanography Teacher [address] [place] [address] 03/19/2023 Office Visit Family Medicine Ana Luisa Mcclain PA-C [address] [place] [address] Health Maintenance Due Date Last Done Comments [...] COPD 02/25/2024 02/24/2023 Lipid Panel 01/13/2026 01/13/2021, 10/2019, 02/09/2018, Additional history exists DXA Scan 05/28/2027 05/28/2020, 08/2013, 09/12/2010, Additional history exists Pap Smear Discontinued 08/12/2016, 02/2017, 11/15/2012, Additional history exists LUNG CANCER SCREENING - USE SMARTSET 39611 Completed 05/17/2019, 06/30/2017, 09/12/2015 GARDASIL-HPV IMMUNIZATION SERIES [...] Documents on File Type Date Recorded Patient Clinic Clerk Expl anation POLST 02/04/2023 [place] OR DERS FOR LIFE-SUSTAINING TREATMENT POLST 06/17/2021 [place] OR DERS FOR LIFE-SUSTAINING TREATMENT Care Teams Wool Hat Hydraulicker Relationship Specialty Start Date End Date Daimr De La Cruz MD [address] [place] [address] PCP - General 04/04/00 documented as of this encounter
--- OUTSIDE RECORDS SUMMARY | 2023-06-13 13:08 | External Medical Summary | Summary of Care ---
Author Name Unknown Organization [facility] Address [address] [place] [address] Phone [phone] Care Team Providers Care Top Dyeing Machine Tender Name Role Phone Damir De La Cruz MD Primary Care Provider +1- [phone] Reason for Visit * Reason Onset Date Comments [facility]: Acute 03/01/2023 Encounter Details Date Type Department Care Team Description 03/01/2023 Telephone [facility], [facility] [address] [place] [address] [facility], Nurse [facility] [address] [place] [address] [facility]: Acute Allergies Active Allergy [...] 0 Active guaifenesin ER (MUCINEX) 600 MG [id number]:INDUSTRIAL BOILERMAKER D, severe (HCC),Chronic cough Take 1 Tab [...] Pre serve, 2-Dose Series (Pfizer) 10/03/2020,09/12/2020 PPD 05/11/2005,,03/30/2001,08/1998 Pneumococcal Polysaccharide PPV23 (Pneumovax) 10/23/2008 TD - [...] Encounter - Selena Varma RN - 03/01/2023 1:48 PM EDT Return call from patient She had some "nuggets" of stool after our call, but hard and small amount She stated she took Miralax daily Fri/Sat/Sun, Used Senna 4x/day Fri/Sat/Sun. Drinking 50-60 ozs aday. Denied bloating, pain, cramping Hard for her too to push stool out due to COPD, it makes her SOB if she pushes too often or too hard Reviewed giving herself the suppository, she agreed to same. Will do it Wed. [facility] in afternoon if no BM Gloria Varma RN, BSN [facility] Intake Triage Coordinator [phone] * Telephone Encounter - Selena Varma RN [...] she got. Reached out to director re: RNLETICIA seeing patient on Wednesday Return call to patient, went to voice mail. Message left for callback . Will discuss further detail about bowel prep instructions per Dr Mariee and encourage self administration of suppository. Gloria Varma RN, BSN [facility] Intake Triage Coordinator [phone] documented in this encounter Plan of Treatment Upcoming Encounters Date Type Specialty Care Team Description 03/15/2023 Home Visit [facility] Brinda Gómez RN [address] [place] [address] 03/17/2023 Telemedicine [facility] Dallas Campbell PA-C [address] [place] [address] Emilee Flynn, Community Health Range Ecologist [address] [place] [address] 03/19/2023 Office Visit Family Medicine Ana Luisa Mcclain PA-C [address] [place] [address] Health Maintenance Due Date Last Done Comments [...] COPD 02/25/2024 02/24/2023 Lipid Panel 01/13/2026 01/13/2021, 060 10/2019, 02/09/2018, Additional history exists DXA Scan 05/28/2027 05/28/2020, 08/2013, 09/12/2010, Additional history exists Pap Smear Discontinued 08/12/2016, 02/2017, 11/15/2012, Additional history exists LUNG CANCER SCREENING - USE SMARTSET [id number] Completed 05/17/2019, 06/30/2017, 09/12/2015 GARDASIL-HPV IMMUNIZATION SERIES [...] Documents on File Type Date Recorded Patient Chef Manager Expl anation POLST 02/04/2023 [place] OR DERS FOR LIFE-SUSTAINING TREATMENT POLST 06/17/2021 [place] OR DERS FOR LIFE-SUSTAINING TREATMENT Care Teams Top Dyeing Machine Tender Relationship Specialty Start Date End Date Damir De La Cruz MD [address] [place], [place] [phone] PCP - General 04/04/00 documented as of this encounter
--- OUTSIDE RECORDS SUMMARY | 2023-06-13 13:08 | External Medical Summary | Summary of Care ---
Author Name Unknown Organization [facility] Address [address] [place] [address] Phone [phone] Care Team Providers Care Community Health Nurse Name Role Phone Damir De La Cruz MD Primary Care Provider +1- [phone] Reason for Visit * Reason Comments [facility]: Maintenance Encounter Details Date Type Department Care Team Description 03/15/2023 Home Visit [facility], [facility] [address] [facility] [place] [address] Brinda Gómez, RN [address] [facility] [place] [address] Allergies Active Allergy Reactions Severity Noted Date Comments Prednisone Psych complications 10/23/2008 intolerance documented as of this encounter (statuses as of 03/22/2023) Medications Medication Sig Dispensed Refills Start Date End Date Status LORATADINE 10 MG PO TABS One pill by mouth once a day as needed for allergies 30 Tab 5 11/09/2011 Active ASPIRIN 81 MG PO CHEWIndications:pa tient states at least 3 to 4 times a week Take by mouth. Indications: patient states at least 3 to 4 times a week 100 Tab 5 06/14/2013 Active oxygen GAS Use 4-5 L/min(Oxygen) as directed. 0 Active guaifenesin ER (MUCINEX) 600 MG [id number]:[place] PD, severe (HCC),Chronic cough Take 1 Tab [...] of breath). 30 mL 0 03/04/2023 Active Gabapentin 100 MG Oral Capsule (Neurontin) Take 1 Capsule by mouth at bedtime. 0 Active traZODone HCl 50 MG Oral Tablet (Desyrel) Take 1.5 Tablets by mouth at bedtime. May increase to 2 tab as tolerated or needed for insomnia 180 Tablet 0 11/25/2022 3 Discontinue d(Refill) traMADol HCl 50 MG Oral Tablet (Ultram)Indication s:Controlled substance agreement signed TAKE 1 TABLET BY MOUTH EVERY 6 HOURS NEEDED FOR MODERATE PAIN 120 Tablet 0 02/05/2023 3 Discontinue d(Refill) Albuterol Sulfate HFA 108 (90 Base) MCG/ACT Inhalation Aerosol Solution INHALE 2 PUFFS BY MOUTH EVERY 4 HOURS NEEDED FOR SHORTNESS OF BREATH 18 g 0 02/03/2023 3 Discontinue d(Refill) Pregabalin 25 MG Oral Capsule (Lyrica) Take 1 Capsule by mouth in the morning and 1 Capsule before bedtime. 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 11/18/2021 POLST (Physician Orders for Life-Sustain ing Treatment) 06/17/2021 Controlled substance agreement signed COPD, severe 11/12/2011 DM type 2 causing renal disease 11/05/19 10 Chronic rhinitis 08/22/2002 Tobacco use disorder 12/07/2000 Reflux esophagitis ADJ DISORDER W/DEPRES MOOD Neuropathy documented as of this encounter (statuses as of 03/22/2023) Resolved Problems Problem Noted Date Resolved Date [...] as of this encounter (statuses as of 03/22/2023) Immunizations Name Administration Dates Next Due COVID-19 [...] Sign Reading Time Taken Comments Blood Pressure 118/68 03/15/2023 2:51 PM EDT Pulse 100 03/15/2023 2:51 PM EDT Temperature 37.2 C (98.9 F) 03/15/2023 2 :51 PM EDT Respiratory Rate 22 03/15/2023 2:51 PM EDT Oxygen Saturation 99% 03/15/2023 2:5 1 PM EDT o2 on at 5 l/min via nc Inhaled Oxygen Concentration - - Weight - - Height - - Body Mass Index - - documented in this encounter Progress Notes * Brinda Gómez RN - 03/15/2023 2:42 PM EDT [facility] Aerosol Supervisor Visit Date: 03/15/2023 Time: 2:43 PM Name: Iris Goodwin : 1955 Current Concerns: Pt seen for return RNCM visit Continues to take Senna prn for constipation with use of Morphine Taking morphine 1-2x a day to help with the dyspnea Feeling more SOB today and just took dose of Morphine prior to visit Does have increased fatigue with use of Morphine, states "I can sleep anytime" Pt reports she had some side effects with Pregabalin - "felt miserable", mood effects - stopped taking Pregabalin and is now back to taking gabapentin 100mg qhs She is going to message her PCP on myChart to let him know Physical Exam: BP 118/68 | Pulse 100 | Temp 37.2 C (98.9 F) | Resp 22 | LMP 07/22/2004 | SpO2 99% Comment: o2 on at 5 l/min via nc Pain 0 Physical Exam Constitutional: General: She is not in acute distress. Cardiovascular: Rate and Rhythm: Normal rate and regular rhythm. Pulses: Normal pulses. Heart sounds: Normal heart sounds. Pulmonary: Effort: Pulmonary effort is normal. Comments: Lungs diminished throughout Abdominal: Palpations: Abdomen is soft. Skin: General: Skin is warm and dry. Neurological: Mental Status: She is alert and oriented to person, place, and time. Problems/Symptoms: Review of Systems Constitutional: Positive for fatigue. HENT: Negative. Eyes: Negative. Respiratory: Positive for cough and shortness of breath (at baseline). Cardiovascular: Negative. Gastrointestinal: Negative. Genitourinary: Negative. Musculoskeletal: Positive for arthralgias. Skin: Negative. Neurological: Negative. Hematological: Negative. Psychiatric/Behavioral: Negative. Medication Reconciliation: (See medication list) Does patient take medications as ordered: Yes Patient Well Being: PHQ2/9: No questionnaires available. No change in living situation Denies falls MAH-10 Completed this Visit: No. Routine visit and No falls since last visit Advanced Care Planning: Living Will. and POLST. Patient's Goals of Care: Maintain current functional abilities Be comfortable Reinforcement/Education: Educated on home safety: Create a [...] Morphine sulfate prn dyspnea Palliative involved Senna for constipation Home Interventions Provided: Home Intervention: Other; eval Reinforced current Plan of Care, including self-management and medication regimen Patient's 'Red Flags': Can't catch your breath Increased fatigue/weakness Chest feels tight Patient Needs to Remember: Call [facility] at with any new or worsening health [...] visits & schedule home visit with care steam heating installer(s)as indicated. Provider is in agreement with Plan of Care: Yes Scheduled to follow up with patient in 1 week with palliative, one month with RNCM. Brinda Gómez RN 03/15/2023 2:43 PM documented in this encounter Plan of Treatment Upcoming Encounters Date Type Specialty Care Team Description 03/24/2023 Telemedicine [facility] Dallas Campbell PA-C [address] [place] [address] Emilee Flynn, Community Health General Intern [address] [place] [address] 04/19/2023 Home Visit [facility] Brinda Gómez RN [address] [place] [address] Health Maintenance Due Date Last Done Comments [...] COPD 03/15/2024 03/15/2023 Lipid Panel 01/13/2026 01/13/2021, 060 10/2019, 02/09/2018, Additional history exists DXA Scan 05/28/2027 05/28/2020, 0 08/2013, 09/12/2010, Additional history exists Pap Smear Discontinued 08/12/2016, 02/2017, 11/15/2012, Additional history exists LUNG CANCER SCREENING - USE SMARTSET 28455 Completed 05/17/2019, 06/30/2017, 09/12/2015 GARDASIL-HPV IMMUNIZATION SERIES [...] Documents on File Type Date Recorded Patient Dispatcher Motor Vehicle Expl anation POLST 02/04/2023 [place] DERS FOR LIFE-SUSTAINING TREATMENT POLST 06/17/2021 [place] DERS FOR LIFE-SUSTAINING TREATMENT Care Teams Community Health Nurse Relationship Specialty Start Date End Date Damir De La Cruz MD [address] [place] [address] PCP - General 04/04/00 documented as of this encounter
--- OUTSIDE RECORDS SUMMARY | 2023-06-13 13:08 | External Medical Summary | Summary of Care ---
Author Name Unknown Organization [facility] Address [address] [place] [address] Phone [phone] Care Team Providers Care Toolroom Attendant Name Role Phone Damir De La Cruz MD Primary Care Provider +1- [phone] Reason for Visit * Reason Onset Date Comments Encounter Created in Error 03/01/2023 Encounter Details Date Type Department Care Team Description 03/01/2023 Telephone [facility], [place] [address] [place] [address] Services, Scheduling [address] [place] [address] Encounter Created in Error Allergies Active Allergy Reactions Severity Noted Date Comments Prednisone Psych complications 10/23/2008 intolerance documented as of this encounter (statuses as of 03/12/2023) Medications Medication Sig Dispensed Refills Start Date [...] 0 Active guaifenesin ER (MUCINEX) 600 MG [id number]:ALIGNER TYPEWRITER D, severe (HCC),Chronic cough Take 1 Tab [...] long-term current use of insulin ([facility]) Take 1 Tablet by mouth [...] OF BREATH 18 g 0 02/03/2023 Active Pregabalin 25 MG Oral Capsule (Lyrica) Take 1 Capsule by mouth in the morning and 1 Capsule before bedtime. 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 11/18/2021 POLST (Physician Orders for Life-Sustain ing Treatment) 06/17/2021 Controlled substance agreement signed COPD, severe 11/12/2011 DM type 2 causing renal disease 11/05/19 Chronic rhinitis 08/22/2002 Tobacco use disorder 12/07/2000 Reflux esophagitis ADJ DISORDER W/DEPRES MOOD Neuropathy documented as of this encounter (statuses as of 03/12/2023) Resolved Problems Problem Noted Date Resolved Date [...] as of this encounter (statuses as of 03/12/2023) Immunizations Name Administration Dates Next Due COVID-19 [...] Miscellaneous Notes * Telephone Encounter - ANGELA Ortega - 03/01/2023 1:50 PM EDT Incoming call from Iris wanting to know which Gloria she had a message from and a call back and it was Kojo and I took her number for Gloria to return call about her former call to [facility] documented in this encounter Plan of Treatment Upcoming Encounters Date Type Specialty Care Team Description 03/15/2023 Home Visit [facility] Brinda Gómez RN [address] [place] [address] 03/19/2023 Office Visit Family Medicine Ana Luisa Mcclain PA-C [address] [place] [address] 03/24/2023 Telemedicine [facility] Dallas Campbell PA-C [address] [place] [address] Emilee Flynn, Community Health Drug Abuse Technician [address] [place] [address] Health Maintenance Due Date Last Done Comments [...] exists LUNG CANCER SCREENING - USE SMARTSET [id number] Completed 05/17/2019, 06/30/2017, 09/12/2015 GARDASIL-HPV IMMUNIZATION SERIES [...] Documents on File Type Date Recorded 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
--- OUTSIDE RECORDS SUMMARY | 2023-06-13 13:08 | External Medical Summary | Summary of Care ---
Author Name Unknown Organization [facility] Address [address] [place] [address] Phone [phone] Care Team Providers Care Biodiesel Engine Specialist Name Role Phone Damir De La Cruz MD Primary Care Provider +1- [phone] Reason for Visit * Reason Onset Date Comments [facility]: Maintenance 02/24/2023 Encounter Details Date Type Department Care Team Description 02/24/2023 Telephone [facility], [facility] [address] [employer] [facility] [place] [address] Brinda Gómez, RN [address] [employer] [facility] [place] [address] [facility]: Maintenance Allergies Active Allergy [...] 0 Active guaifenesin ER (MUCINEX) 600 MG [id number]:COMPOSITE TECHNICIAN D, severe (HCC),Chronic cough Take 1 Tab [...] nephropathy, without long-term current use of insulin ([facility]) Take 1 Tablet by [...] * Telephone Encounter - ANGELA Reynoso - 03/01/2023 8:47 AM EDT LMOM for patient with schedule visit on 03/17/23 at 1130am with JOHNNY Flynn/Adrian NORRIS Phone number provided for [facility] at [phone]. ANGELA Reynoso * Telephone Encounter - Brinda Gómez RN - 02/24/2023 5:07 PM EDT Pt has decided she does not want hospice services at this time. Would like to proceed with palliative. Referral already in place. Please schedule with Dallas Campbell PA-C Thank you! documented in this encounter Plan of Treatment Upcoming Encounters Date Type Specialty Care Team Description 03/15/2023 Home Visit [facility] Brinda Gómez RN [address] [place] [address] 03/17/2023 Telemedicine [facility] Dallas Campbell PA-C [address] [place] [address] Emilee Flynn, Community Health Staining Machine Operator [address] [place] [address] 03/19/2023 Office Visit Family Medicine Ana Luisa Mcclain PA-C [address] [place] [address] Health Maintenance Due Date Last Done Comments [...] exists LUNG CANCER SCREENING - USE SMARTSET 96339 Completed 05/17/2019, 06/30/2017, 09/12/2015 GARDASIL-HPV IMMUNIZATION SERIES [...] Documents on File Type Date Recorded Patient Watch Repair Technician Expl anation POLST 02/04/2023 [place] DERS FOR LIFE-SUSTAINING TREATMENT POLST 06/17/2021 [place] [facility] FOR LIFE-SUSTAINING TREATMENT Care Teams Biodiesel Engine Specialist Relationship Specialty Start Date End Date Damir De La Cruz MD [address], [place] [id number] PCP - General 04/04/00 documented as of this encounter
--- OUTSIDE RECORDS SUMMARY | 2023-06-13 13:08 | External Medical Summary | Summary of Care ---
Author Name Unknown Organization [facility] Address [address] [place] [address] Phone [phone] Care Team Providers Care Tractor Trailer Mechanic Name Role Phone Damir De La Cruz MD Primary Care Provider +1- [phone] Reason for Visit * Reason Onset Date Comments Advice 03/15/2023 Encounter Details Date Type Department Care Team Description 03/15/2023 Telephone [facility] [address] [place] [address] Damir De La Cruz MD [address] [place] [address] Advice Allergies Active Allergy Reactions Severity Noted Date Comments Prednisone Psych complications 10/23/2008 intolerance documented as of this encounter (statuses as of 03/17/2023) Medications Medication Sig Dispensed Refills Start Date [...] 0 Active guaifenesin ER (MUCINEX) 600 MG [id number]:EXCELSIOR CUTTER D, severe (HCC),Chronic cough Take 1 Tab [...] nephropathy, without long-term current use of insulin ([facility]) Take 1 Tablet by mouth in the [...] as of this encounter (statuses as of 03/17/2023) Active Problems Problem Noted Date HTN, goal below 140/90 12/21/2021 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 11/18/2021 POLST (Physician Orders for Life-Sustain ing Treatment) 06/17/2021 Controlled substance agreement signed COPD, severe 11/12/2011 DM type 2 causing renal disease 11/05/19 10 Chronic rhinitis 08/22/2002 Tobacco use disorder 12/07/2000 Reflux esophagitis ADJ DISORDER W/DEPRES MOOD Neuropathy documented as of this encounter (statuses as of 03/17/2023) Resolved Problems Problem Noted Date Resolved Date [...] as of this encounter (statuses as of 03/17/2023) Immunizations Name Administration Dates Next Due COVID-19 mRNA, LNP-s, No Pre serve, 2-Dose Series (BoatsGo) 10/03/2020,09/12/2020 Pneumococcal Polysaccharide PPV23 (Pneumovax) TD - [...] Miscellaneous Notes * Telephone Encounter - ANGELA Greer - 03/17/2023 2:56 PM EDT LMOM to schedule. Thank you. * Telephone Encounter - ANGELA Greer - 03/17/2023 9:17 AM EDT Please call to cancel and reschedule appt per message below. 03/17/2023 * Telephone Encounter - ANGELA Mendez - 03/15/2023 4:14 PM EDT Iris asked Gloria from [facility] to cancel her appt coming up on 03-19 with JR Orosco and for someone to call her back to reschedule please as she has another appt that same day. documented in this encounter Plan of Treatment Upcoming Encounters Date Type Specialty Care Team Description 03/24/2023 Telemedicine [facility] Dallas Campbell PA-C [address] [place] [address] Emilee Flynn, Community Health Day Care Teacher [address] [place] [address] 04/19/2023 Home Visit [facility] Brinda Gómez RN [address] [place] [address] Health Maintenance Due Date Last Done Comments [...] exists LUNG CANCER SCREENING - USE SMARTSET [id number] Completed 05/17/2019, 06/30/2017, 09/12/2015 GARDASIL-HPV IMMUNIZATION SERIES [...] Documents on File Type Date Recorded Patient Roller Varnisher Expl anation POLST 02/04/2023 [place] DERS FOR LIFE-SUSTAINING TREATMENT POLST 06/17/2021 [place] DERS FOR LIFE-SUSTAINING TREATMENT Care Teams Tractor Trailer Mechanic Relationship Specialty Start Date End Date Damir De La Cruz MD [address] [place] [address] PCP - General 04/04/00 documented as of this encounter
--- OUTSIDE RECORDS SUMMARY | 2023-06-13 13:08 | External Medical Summary | Summary of Care ---
Author Name Unknown Organization [facility] Address [address] [place] [address] Phone [phone] Care Team Providers Care Exchange Teller Name Role Phone Yvon Gordon MD Primary Care Provider +1- [phone] Reason for Visit * Reason Onset Date Comments Medication Refill 03/14/2023 Encounter Details Date Type Department Care Team Description 03/14/2023 Refill [facility] [address] [place] [address] Ana Luisa Mcclain PA-C [address] [place] [address] Allergies Active Allergy Reactions Severity Noted Date Comments Prednisone Psych complications 10/23/2008 intolerance documented as of this encounter (statuses as of 03/16/2023) Medications Medication Sig Dispensed Refills Start Date [...] 0 Active guaifenesin ER (MUCINEX) 600 MG [id number]:[place] PD, severe (HCC),Chronic cough Take 1 Tab [...] long-term current use of insulin ([facility]) Take 1 Tablet by mouth in the [...] Active traMADol HCl 50 MG Oral Tablet (Ultram)Indication s:Controlled substance agreement signed TAKE 1 TABLET BY MOUTH EVERY 6 HOURS NEEDED FOR MODERATE PAIN 120 Tablet 0 02/05/2023 Active Morphine Sulfate (Concentrate) 100 MG/5ML Oral [...] of Breath. 18 g 2 03/16/2023 Active traZODone HCl 50 MG Oral Tablet (Desyrel) Take 1.5 Tablets by mouth at bedtime. 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 11/18/2021 POLST (Physician Orders for Life-Sustain ing Treatment) 06/17/2021 Controlled substance agreement signed COPD, severe 11/12/2011 DM type 2 causing renal disease 11/05/19 10 Chronic rhinitis 08/22/2002 Tobacco use disorder 12/07/2000 Reflux esophagitis ADJ DISORDER W/DEPRES MOOD Neuropathy documented as of this encounter (statuses as of 03/16/2023) Resolved Problems Problem Noted Date Resolved Date [...] as of this encounter (statuses as of 03/16/2023) Immunizations Name Administration Dates Next Due COVID-19 [...] encounter Miscellaneous Notes * Telephone Encounter - Jose Pryor, [facility] - 03/16/2023 3:27 AM EDTSigned Prescriptions: Disp Refills traZODone HCl 50 MG Oral Tablet (Desyrel) 180 Ta*0 Sig: Take 1.5Tablets by mouth at bedtime. May increase to 2 tab as tolerated or needed for insomniaAuthorizing Provider: YVON GORDON User: JOSE PRYOR Albuterol Sulfate HFA 108 (90 Base) MCG/AC*18 g 2 Sig: Inhale 2 Puffs by mouth every 4 hours as needed for Shortness of Sola th.Authorizing Provider: YVON GORDON User: JOSE PRYOR documented in this encounter Plan of Treatment Upcoming Encounters Date Type Specialty Care Team Description 03/24/2023 Telemedicine [facility] Dallas Campbell PA-C [address] [place] [address] Emilee Flynn, Community Health Auto Body Builder Apprentice [address] [place], [place] [id number] 04/19/2023 Home Visit [facility] Brinda Gómez RN [address] [place] [address] Health Maintenance Due Date Last Done Comments [...] COPD 03/15/2024 03/15/2023 Lipid Panel 01/13/2026 01/13/2021, 0610/2019, 02/09/2018, Additional history exists DXA Scan 05/28/2027 05/28/2020, 0 08/2013, 09/12/2010, Additional history exists Pap Smear Discontinued 08/12/2016, 0 02/2017, 11/15/2012, Additional history exists LUNG CANCER SCREENING - USE SMARTSET 14182 Completed 05/17/2019, 06/30/2017, 09/12/2015 GARDASIL-HPV IMMUNIZATION SERIES [...] Documents on File Type Date Recorded Patient Front Desk Team Member Expl anation POLST 02/04/2023 [place] DERS FOR LIFE-SUSTAINING TREATMENT POLST 06/17/2021 [place] DERS FOR LIFE-SUSTAINING TREATMENT Care Teams Exchange Teller Relationship Specialty Start Date End Date Yvon Gordon MD [address] [place] [address] PCP - General 04/04/00 documented as of this encounter
--- OUTSIDE RECORDS SUMMARY | 2023-06-13 13:08 | External Medical Summary | Summary of Care ---
Author Name Unknown Organization [facility] Address [address] [place] [address] Phone [phone] Care Team Providers Care Clinical Exercise Specialist Name Role Phone Damir De La Cruz MD Primary Care Provider +1- [phone] Reason for Visit * Reason Onset Date Comments [facility]: Maintenance 03/03/2023 Encounter Details Date Type Department Care Team Description 03/03/2023 Telephone [facility], [facility] [address] [facility] [place] [address] [facility], Nurse [facility] [address] [place] [address] [facility]: Maintenance Allergies Active Allergy Reactions Severity Noted Date Comments Prednisone Psych complications 10/23/2008 intolerance documented as of this encounter (statuses as of 03/04/2023) Medications Medication Sig Dispensed Refills Start Date [...] 0 Active guaifenesin ER (MUCINEX) 600 MG [id number]:[place] PD, severe (HCC),Chronic cough Take 1 Tab [...] nephropathy, without long-term current use of insulin ([facility]) Take 1 Tablet by mouth [...] before bedtime. 60 Capsule 0 02/24/2023 Active Morphine Sulfate (Concentrate) 100 MG/5ML Oral Solution Take 0.25 mL by mouth every 4 hours as needed (shortness of breath). 30 mL 0 03/04/2023 Active Morphine Sulfate (Concentrate) 100 MG/5ML Oral Solution Take 0.25 mL by mouth every 4 hours as needed (shortness of breath). 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 11/18/2021 POLST (Physician Orders for Life-Sustain ing Treatment) 06/17/2021 Controlled substance agreement signed COPD, severe 11/12/2011 DM type 2 causing renal disease 11/05/19 Chronic rhinitis 08/22/2002 Tobacco use disorder 12/07/2000 Reflux esophagitis ADJ DISORDER W/DEPRES MOOD Neuropathy documented as of this encounter (statuses as of 03/04/2023) Resolved Problems Problem Noted Date Resolved Date [...] as of this encounter (statuses as of 03/04/2023) Immunizations Name Administration Dates Next Due COVID-19 [...] Telephone Encounter - Dallas Campbell PA-C - 03/04/2023 9:49 PM EDT Agree with recommendations for senna and miralax. Morphine refill sent as requested. I have reviewed the patients controlled substance dispensing history in the Prescription Drug Monitoring Program in compliance with the [facility] regulations before prescribing a controlled substance. Last [...] results can be found in Results Review. * Telephone Encounter - Cb Mariee MD - 03/03/2023 2:22 PM EDT These issues are all managed by Dallas Campbell. I see nothing acute to address as [facility], so forwarding message to Dallas. Cb Mariee MD, [facility], [facility], [facility] ([facility]) [facility] at Available on [employer] * Telephone Encounter - Selena Varma RN - 03/03/2023 1:49 PM EDT Phone call from patient, wanted to know if she should continue taking the Senna She had BM again today, "nuggets, but they are all connected this time, not one at a time coming out". Advised we are moving in right direction For now, continue taking daily Senna and Miralax If stool becomes softer, more formed, she may be able to cut back on the Senna. They reason she is so constipated is due to Morphine, but she is taking Morphine because she developed Oxygen Starvation from having to push/force to have a BM Only used Morphine x1 yesterday, last week it was 3-4x/day. Taking 0.25 ml per dose Advised her to continue Senna and Miralax If sees individual nuggets, she will need to give herself another suppository She needs refill of her Morphine Sulfate Liquid, Routed to [facility] used Gloria Varma RN, BSN [facility] Intake Triage Coordinator [phone] documented in this encounter Plan of Treatment Upcoming Encounters Date Type Specialty Care Team Description 03/15/2023 Home Visit [facility] Brinda Gómez RN [address] [place] [address] 03/17/2023 Telemedicine [facility] Dallas Campbell PA-C [address] [place] [address] Emilee Flynn, Community Health Mortar Mixer Operator [address] [place] [address] 03/19/2023 Office Visit Family Medicine Ana Luisa Mcclain PA-C [address] [place] [address], [place] [id number] Health Maintenance Due Date Last Done Comments [...] Additional history exists Pap Smear Discontinued 08/12/2016, 020 02/2017, 11/15/2012, Additional history exists LUNG CANCER SCREENING - USE SMARTSET 70358 Completed 05/17/2019, 06/30/2017, 09/12/2015 GARDASIL-HPV IMMUNIZATION SERIES [...] on File Type Date Recorded Patient Marketing Production Coordinator Expl anation POLST 02/04/2023 [place] DERS FOR LIFE-SUSTAINING TREATMENT POLST 06/17/2021 [place] DERS FOR LIFE-SUSTAINING TREATMENT Care Teams Clinical Exercise Specialist Relationship Specialty Start Date End Date Damir De La Cruz MD [address] [place] [address] PCP - General 04/04/00 documented as of this encounter
--- OUTSIDE RECORDS SUMMARY | 2023-06-13 13:08 | External Medical Summary | Summary of Care ---
Author Name Unknown Organization [facility] Address [address] [place] [address] Phone [phone] Care Team Providers Care Refinery Operator Gas Plant Name Role Phone Damir De La Cruz MD Primary Care Provider +1- [phone] Reason for Visit * Reason Onset Date Comments Appointment 03/15/2023 Encounter Details Date Type Department Care Team Description 03/15/2023 Telephone [facility], [place] [address] [place] [address] Services, Scheduling [address] [place] [address] Appointment (//) Allergies Active Allergy Reactions Severity Noted Date Comments Prednisone Psych complications 10/23/2008 intolerance documented as of this encounter (statuses as of 03/15/2023) Medications Medication Sig Dispensed Refills Start Date [...] 0 Active guaifenesin ER (MUCINEX) 600 MG [id number]:HOUSEKEEPING STAFF D, severe (HCC),Chronic cough Take 1 Tab [...] as of this encounter (statuses as of 03/15/2023) Active Problems Problem Noted Date HTN, goal below 140/90 12/21/2021 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 11/18/2021 POLST (Physician Orders for Life-Sustain ing Treatment) 06/17/2021 Controlled substance agreement signed COPD, severe 11/12/2011 DM type 2 causing renal disease 11/05/19 Chronic rhinitis 08/22/2002 Tobacco use disorder 12/07/2000 Reflux esophagitis ADJ DISORDER W/DEPRES MOOD Neuropathy documented as of this encounter (statuses as of 03/15/2023) Resolved Problems Problem Noted Date Resolved Date [...] as of this encounter (statuses as of 03/15/2023) Immunizations Name Administration Dates Next Due COVID-19 [...] * Telephone Encounter - ANGELA Ortega - 03/15/2023 4:14 PM EDT Request to call pcp and cx appt on and ask them to cb with new one I called and spoke to Zahiraadelinakenji did cx it and sent note for her to be called back documented in this encounter Plan of Treatment Upcoming Encounters Date Type Specialty Care Team Description 03/24/2023 [facility]medicine [facility] Dallas Campbell PA-C [address] [place] [address] Emilee Flynn, Community Health It Security Specialist [address] [facility] [place] [address] 04/19/2023 Home Visit [facility] Brinda Gómez, RN [address] [place] [address] Health Maintenance Due Date Last Done Comments [...] exists LUNG CANCER SCREENING - USE SMARTSET [id number] Completed 05/17/2019, 06/30/2017, 09/12/2015 GARDASIL-HPV IMMUNIZATION SERIES [...] Documents on File Type Date Recorded Patient Speech Pathology Assistant Expl anation POLST 02/04/2023 [place] DERS FOR LIFE-SUSTAINING TREATMENT POLST 06/17/2021 [place] DERS FOR LIFE-SUSTAINING TREATMENT Care Teams Refinery Operator Gas Plant Relationship Specialty Start Date End Date Damir De La Cruz MD [address] [place] [address] PCP - General 04/04/00 documented as of this encounter
--- OUTSIDE RECORDS SUMMARY | 2023-06-13 13:08 | External Medical Summary | Summary of Care ---
Author Name Unknown Organization [facility] Address [address] [place] [address] Phone [phone] Care Team Providers Care Instrument Assembly Supervisor Name Role Phone Damir De La Cruz MD Primary Care Provider +1- [phone] Reason for Visit * Reason Onset Date Comments Hospital Follow-Up Hospital Follow-Up 03/08/2023 Encounter Details Date Type Department Care Team Description 02/16/2023 Office Visit [facility] [address] [place] [address] Damir De La Cruz MD [address] [place] [address] Chronic hypoxemic respiratory failure (HCC)*; COPD, severe (HCC); Hospital discharge follow-up; Type 2 diabetes mellitus with polyneuropathy (HCC); HTN, goal below 140/90 Allergies Active Allergy Reactions Severity Noted Date Comments Prednisone Psych complications 10/23/2008 intolerance documented as of this encounter (statuses as of 03/08/2023) Medications Medication Sig Dispensed Refills Start Date [...] 0 Active guaifenesin ER (MUCINEX) 600 MG [id number]:[place] PD, severe (HCC),Chronic cough Take 1 Tab [...] current use of insulin ([facility]) Take 1 Tablet by mouth in the [...] 30 mL 0 02/11/2023 3 Discontinue d(Refill) Gabapentin 100 MG Oral Capsule (Neurontin) Take 1 Capsule by mouth in the morning and 1 Capsule at noon and 1 Capsule before bedtime. 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 11/18/2021 POLST (Physician Orders for Life-Sustain ing Treatment) 06/17/2021 Controlled substance agreement signed COPD, severe 11/12/2011 DM type 2 causing renal disease 11/05/19 10 Chronic rhinitis 08/22/2002 Tobacco use disorder 12/07/2000 Reflux esophagitis ADJ DISORDER W/DEPRES MOOD Neuropathy documented as of this encounter (statuses as of 03/08/2023) Resolved Problems Problem Noted Date Resolved Date [...] as of this encounter (statuses as of 03/08/2023) Immunizations Name Administration Dates Next Due COVID-19 [...] Sign Reading Time Taken Comments Blood Pressure 122/62 02/16/2023 1:53 PM EDT Pulse 112 02/16/2023 1:53 PM EDT Temperature 36.7 C (98 F) 02/16/2023 1:53 PM EDT Respiratory Rate 22 02/16/2023 1:53 PM EDT Oxygen Saturation 98% 02/16/2023 1:53 PM EDT Inhaled Oxygen Concentration - - Weight 35.5 kg (78 lb 3.2 oz) 02/16/2023 1:53 PM EDT Height 154.9 cm (5' 1") 02/16/2023 1:53 PM EDT Body Mass Index 14.78 02/16/2023 1:53 PM EDT documented in this encounter Progress Notes * Damir De La Cruz MD - 02/16/2023 2:14 PM EDT Subjective: Iris Goodwin is a 67 year old female here today for Chief Complaint Patient presents with Hospital Follow-Up Hospital Follow-Up Patient presents for hospital follow-up. Ad[facility] to [facility] February 03, 2023 through February 08, 2023 fora COPD exacerbation and acute on chronic respiratory failure with hypoxia and hypercarbia. She did improve some during hospitalization with treatments. She was seen by Pulmonary Medicine. Did have a palliative care consultation. Plan is to transition to hospice as per patient wishes. Patient is comfortable with this decision. Has a POLST form for completion today. Is working with [facility]. Confirms her desire for comfort care and no further hospitalizations, no attempts at resuscitation. Past Medical History: Diagnosis Date Adjustment disorder with depressed mood Allergic rhinitis COPD, severity to be determined (HCC) HEMATURIA 11/20/1999 Reflux esophagitis TOBACCO USE DISORDER 12/07/2000 Past Surgical History: Procedure Laterality Date COLPOSCPY CERVIX W/BX AND EC 1987 Colposcopy,Bx Cervix/Endocerv Curr CRYOCAUTERY OF CERVIX 1988 CYSTOSCOPY 11/09/03 w/ stent placement/removalfor chronic hematuria DENTAL SURGERY PROCEDURE NEC 1988 Dental Surgery Procedure 5 teeth DENTAL SURGERY PROCEDURE NEC 1992 Dental Surgery Procedure-gum lengthening LIGATE/CUT OVIDUCT(S) 1993 Tubal Ligation REMOVAL OF KIDNEY 1986 Nephrectomy-right partial-congenital double ureter REMOVE TONSILS & ADENOIDS, UNDER 12 age 5 Tonsillectomy/Adenoids,<12 Y/O Review of patient's allergies indicates: Allergen Reactions Prednisone Psych complications intolerance Current Outpatient Medications Medication Sig Dispense Refill [...] mouth in the morning. 90 Tablet 3 traZODone HCl 50 MG Oral Tablet (Desyrel) Take 1.5 Tablets by mouth at bedtime. May increase to 2 tab as tolerated or needed for insomnia 180 Tablet 0 Acetaminophen 325 MG Oral Tablet Take 1 [...] Take 1 Capsule by mouth every afternoon. traMADol HCl 50 MG Oral Tablet (Ultram) TAKE 1 TABLET BY MOUTH EVERY 6 HOURS NEEDED FOR MODERATEPAIN 120 Tablet 0 Albuterol Sulfate HFA 108 (90 Base) MCG/ACT Inhalation Aerosol Solution INHALE 2 PUFFS BY MOUTH EVERY 4 HOURS NEEDED FOR SHORTNESS OF BREATH 18 g 0 Pregabalin 25 MG Oral Capsule (Lyrica) Take 1 Capsule by mouth in the morning and 1 Capsule before bedtime. 60 Capsule 0 Morphine Sulfate (Concentrate) 100 MG/5ML Oral Solution Take 0.25 mL by mouth every 4 hours as needed (shortness of breath). 30 mL 0 No current facility-administered medications for this visit. Objective: BP 122/62 | Pulse 112 | Temp 36.7 C (98 F) (Temporal Artery) | Resp 22 | Ht 1.549 m (5' 1") | Wt 35.5 kg (78 lb 3.2 oz) | LMP 07/22/2004 | SpO2 98% | BMI 14.78 kg/m | BSA 1.24 m GEN: NAD CHEST: decreased airflow, chronic coarse sounds. CV: RRR ABD: Soft, NT/ND, No HSM, NABS EXT: No c,c,e Assessment and Plan: Chronic hypoxemic respiratory failure (HCC) (Primary) COPD, severe (HCC) Hospital discharge follow-up - DISCH MED RECON CUR MED LIS Type 2 diabetes mellitus with polyneuropathy (HCC) HTN, goal below 140/90 -continue current treatments and plans for hospice and comfort care. -will assist as able. Damir De La Cruz MD documented in this encounter Nursing Notes * Ary Levy LPN - 02/16/2023 1:53 PM EDT The patient has been properly identified by confirmation of name and date of . Chief Complaint Patient presents with Hospital Follow-Up documented in this encounter Plan of Treatment Upcoming Encounters Date Type Specialty Care Team Description 03/15/2023 Home Visit [facility] Brinda Gómez RN [address] [facility] [place] [address] 03/17/2023 Telemedicine [facility] Dallas Campbell PA-C [address] [place] [address] Emilee Flynn, Community Health Inspector [place] [address] [place] [address] 03/19/2023 Office Visit Family Medicine Ana Luisa Mcclain PA-C [address] [place] [address] Health Maintenance Due Date Last Done Comments [...] COPD 02/25/2024 02/24/2023 Lipid Panel 01/13/2026 01/13/2021, 0 10/2019, 02/09/2018, Additional history exists DXA Scan 05/28/2027 05/28/2020, 0 08/2013, 09/12/2010, Additional history exists Pap Smear Discontinued 08/12/2016, 02/2017, 11/15/2012, Additional history exists LUNG CANCER SCREENING - USE SMARTSET [id number] Completed 05/17/2019, 06/30/2017, 09/12/2015 GARDASIL-HPV IMMUNIZATION SERIES [...] as of this encounter Visit Diagnoses Diagnosis Chronic hypoxemic respiratory failure (HCC)- Primary Chronic respiratory failure COPD, severe (HCC) Chronic airway obstruction, not elsewhere classified Hospital discharge follow-up Other follow-up examination Type 2 diabetes mellitus with polyneuropathy (HCC) Type II or unspecified type diabetes mellitus with neurological manifestations, not stated as uncontrolled HTN, goal below 140/90 Unspecified essential hypertension documented in this encounter Advance Directives Documents on File Type Date Recorded Patient Mortgage Branch Manager Expl anation POLST 02/04/2023 [place] DERS FOR LIFE-SUSTAINING TREATMENT POLST 06/17/2021 [place] DERS FOR LIFE-SUSTAINING TREATMENT Care Teams Instrument Assembly Supervisor Relationship Specialty Start Date End Date Damir De La Cruz MD [address] [place] [address] PCP - General 04/04/00 documented as of this encounter
--- OUTSIDE RECORDS SUMMARY | 2023-06-13 13:08 | External Medical Summary | Summary of Care ---
Author Name Unknown Organization [facility] Address [address] [place] [address] Phone [phone] Care Team Providers Care Passenger Conductor Name Role Phone Damir De La Cruz MD Primary Care Provider +1- [phone] Reason for Visit * Reason Onset Date Comments [facility]: Maintenance 02/24/2023 Encounter Details Date Type Department Care Team Description 02/24/2023 Telephone [facility], [facility] [address] [facility] [place] [address] Brinda Gómez, RN [address] [facility] [place] [address] [facility]: Maintenance Allergies Active Allergy [...] 0 Active guaifenesin ER (MUCINEX) 600 MG [id number]:MANAGER OUTREACH D, severe (HCC),Chronic cough Take 1 Tab [...] nephropathy, without long-term current use of insulin ([facility]) Take 1 Tablet by mouth [...] JOHNNY Flynn/Adrian NORRIS Phone number provided for [facility] at [phone]. ANGELA Reynoso * Telephone Encounter - Brinda [...] RN [address] [place] [address] 03/17/2023 Telemedicine [facility] Dallas Campbell PA-C [address] [place] [address] Emilee Flynn, Community Health Bakery Team Leader [address] [place] [address] 03/19/2023 Office Visit Family Medicine Ana Luisa Mcclain PA-C [address] [place] [address] Health Maintenance Due Date Last Done Comments [...] exists LUNG CANCER SCREENING - USE SMARTSET [id number] Completed 05/17/2019, 06/30/2017, 09/12/2015 GARDASIL-HPV IMMUNIZATION SERIES [...] Documents on File Type Date Recorded Patient Retail Commission Sales Associate Expl anation POLST 02/04/2023 [place] DERS FOR LIFE-SUSTAINING TREATMENT POLST 06/17/2021 [place] [facility] FOR LIFE-SUSTAINING TREATMENT Care Teams Passenger Conductor Relationship Specialty Start Date End Date Damir De La Cruz MD [address], [place] [id number] PCP - General 04/04/00 documented as of this encounter
--- OUTSIDE RECORDS SUMMARY | 2023-06-13 13:08 | External Medical Summary | Summary of Care ---
Author Name Unknown Organization [facility] Address [address] [place] [address] Phone [phone] Care Team Providers Care Polishing Machine Operator Helper Name Role Phone Damir De La Cruz MD Primary Care Provider +1- [phone] Reason for Visit * Reason Onset Date Comments [facility]: Maintenance 03/01/2023 Encounter Details Date Type Department Care Team Description 03/01/2023 Telephone [facility], [facility] 132 [facility] [place] [address] [facility], Nurse [facility] [address] [place] [address] [facility]: Maintenance Allergies Active Allergy [...] 0 Active guaifenesin ER (MUCINEX) 600 MG [id number]:COUNSELOR SUPERVISOR D, severe (HCC),Chronic cough Take 1 Tab [...] without long-term current use of insulin ([facility]) Take 1 Tablet by [...] Telephone Encounter - Adela Pace RN - 03/01/2023 10:11 AM EDT Patient calling to speak to her nurse Brinda. I asked if I could assist her. She said she wanted toknow what the next step for her constipation was. She said she is having bowel movements daily, butthey are like small "nugents". Firm. She is follow recommendations of Dr Mariee for Miralax and senna. She is eating and drinking fluids. Says it difficult to reach 64 ounces, but close to it. I told her she can try a Dulcolax suppository as per Dr. Mariee to see if she can have a normal BM. She isnot distended or abdomen pain, but feels she is not getting "cleaned out". She will try the suppository. Adela Pace. TASIA [facility] RN [phone] documented in this encounter Plan of Treatment Upcoming Encounters Date Type Specialty Care Team Description 03/15/2023 Home Visit [facility] Brinda Gómez RN [address] [place] [address] 03/17/2023 Telemedicine [facility] Dallas Campbell PA-C [address] [place] [address] Emilee Flynn, Community Health Prototype Model Maker [address] [place] [address] 03/19/2023 Office Visit Family Medicine Ana Luisa Mcclain, PAAries [address] [place], [place] [id number] Health Maintenance Due Date Last Done Comments [...] exists LUNG CANCER SCREENING - USE SMARTSET [id number] Completed 05/17/2019, 06/30/2017, 09/12/2015 GARDASIL-HPV IMMUNIZATION SERIES [...] Documents on File Type Date Recorded Patient Media Relations Intern Expl anation POLST 02/04/2023 [place] [facility] FOR LIFE-SUSTAINING TREATMENT POLST 06/17/2021 [place] DERS FOR LIFE-SUSTAINING TREATMENT Care Teams Polishing Machine Operator Helper Relationship Specialty Start Date End Date Damir De La Cruz MD [address], [place] [id number] PCP - General 04/04/00 documented as of this encounter
--- OUTSIDE RECORDS SUMMARY | 2023-06-13 13:08 | External Medical Summary | Summary of Care ---
Author Name Unknown Organization [facility] Address [address] [place] [address] Phone [phone] Care Team Providers Care Glost Tile Shader Name Role Phone Damir De La Cruz MD Primary Care Provider +1- [phone] Reason for Visit * Reason Onset Date Comments [facility]: Maintenance 03/02/2023 Encounter Details Date Type Department Care Team Description 03/02/2023 Telephone [facility], [facility] [address] [place] [address] Stacey Hdz, Community Health Geological Drafter [facility]: Maintenance Allergies Active Allergy [...] 0 Active guaifenesin ER (MUCINEX) 600 MG [id number]:NURSE EPIDEMIOLOGIST D, severe (HCC),Chronic cough Take 1 Tab [...] Telephone Encounter - Selena Varma RN - 03/02/2023 1:05 PM EDT Phone call to patient She had a large BM yesterday WITHOUT TAKING the suppository , wants to know what to do now Advised to cont Senna and Miralax daily, add suppository as needed for no BM in 2-3 days. Reminded to not strain to have BM as she reports it causes her COPD to get worse from all the pushing Gloria Varma RN, BSN [facility] Intake Triage Coordinator [phone] * Telephone Encounter - Stacey Hdz [facility] Health Geological Drafter - 03/02/2023 12:40 PM EDT Patient called and requested to talk to Gloria Maradiaga She asked if she could have her call her at [phone] She stated I could not help her she has been working with Gloria Hdz, ANGELA Electronically signed by Stacey Hdz [facility] Health Geological Drafter at 03/02/2023 12:44 PM EDT documented in this encounter Plan of Treatment Upcoming Encounters Date Type Specialty Care Team Description 03/15/2023 Home Visit [facility] Brinda Gómez RN [address] [place] [address] 03/17/2023 Telemedicine [facility] Dallas Campbell PA-C [address] [place] [address] Emilee Flynn, Community Health Geological Drafter [address] [place] [address] 03/19/2023 Office Visit Family Medicine Ana Luisa Mcclain PA-C [address] [place], [place] [phone] Health Maintenance Due Date Last Done Comments [...] exists LUNG CANCER SCREENING - USE SMARTSET [id number] Completed 05/17/2019, 06/30/2017, 09/12/2015 GARDASIL-HPV IMMUNIZATION SERIES [...] Documents on File Type Date Recorded Patient Wire Tester Expl anation POLST 02/04/2023 [place] DERS FOR LIFE-SUSTAINING TREATMENT POLST 06/17/2021 [place] DERS FOR LIFE-SUSTAINING TREATMENT Care Teams Glost Tile Shader Relationship Specialty Start Date End Date Damir De La Cruz MD [address] [place] [address] PCP - General 04/04/00 documented as of this encounter
--- OUTSIDE RECORDS SUMMARY | 2023-06-13 13:08 | External Medical Summary | Summary of Care ---
Author Name Unknown Organization [facility] Address [address] [place] [address] Phone [phone] Care Team Providers Care Patient Care Secretary Name Role Phone Damir De La Cruz MD Primary Care Provider +1- [phone] Reason for Visit * Reason Onset Date Comments Advice 03/15/2023 Encounter Details Date Type Department Care Team Description 03/15/2023 Telephone [facility] [address] [place] [address] Damir De La Cruz MD [address] [place] [address] Advice Allergies Active Allergy Reactions [...] 0 Active guaifenesin ER (MUCINEX) 600 MG [id number]:LIME KILN WORKER D, severe (HCC),Chronic cough Take 1 Tab [...] nephropathy, without long-term current use of insulin ([facility]) Take 1 Tablet by mouth in the [...] mRNA, LNP-s, No Pre serve, 2-Dose Series ([employer]) 10/03/2020,09/12/2020 PPD 05/11/2005, 3,03/30/2001,08/1998 Pneumococcal Polysaccharide PPV23 [...] ANGELA Greer - 03/17/2023 2:56 PM EDT Spoke to patient and she states she does not need an appt with Ana Luisa as she got the issue taken care of by Dr. Jono rodriguez. 03/17/2023 Thank you. * Telephone Encounter - ANGELA Greer - 03/17/2023 9:17 AM EDT Please call to cancel and reschedule appt per message below. 03/17/2023 * Telephone Encounter - Munira Dubon, ANGELA - 03/15/2023 4:14 PM EDT Iris asked Gloria from [employer] at home to cancel her appt coming up on 03-19 with JR Orosco and for someone to call her back to reschedule please as she has another appt that same day. documented in this encounter Plan of Treatment Upcoming Encounters Date Type Specialty Care Team Description 03/24/2023 Telemedicine [facility] Dallas Campbell PA-C [address] [place] [address] Emilee Flynn, Community Health Panel Wirer [address] [place] [address] 04/19/2023 Home Visit [facility] Brinda Gómez RN [address] [place] [address] Health Maintenance Due Date Last Done Comments [...] exists LUNG CANCER SCREENING - USE SMARTSET 33194 Completed 05/17/2019, 06/30/2017, 09/12/2015 GARDASIL-HPV IMMUNIZATION SERIES [...] Documents on File Type Date Recorded Patient Onion Farmer Expl anation POLST 02/04/2023 [place] DERS FOR LIFE-SUSTAINING TREATMENT POLST 06/17/2021 [place] DERS FOR LIFE-SUSTAINING TREATMENT Care Teams Patient Care Secretary Relationship Specialty Start Date End Date Damir De La Cruz MD [address], [place] [phone] PCP - General 04/04/00 documented as of this encounter
--- OUTSIDE RECORDS SUMMARY | 2023-06-13 13:08 | External Medical Summary | Summary of Care ---
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 documented in this encounter Plan of Treatment Upcoming Encounters Date Type Specialty Care Team Description 03/24/2023 Telemedicine [facility] Dallas Campbell PA-C [address] [place] [address] Emilee Flynn, Community Health Business Services Manager [address] [place] [address] 04/19/2023 Home Visit [facility] Brinda Gómez RN [address] [place] [address] Health Maintenance Due Date Last Done Comments [...] exists LUNG CANCER SCREENING - USE SMARTSET 29952 Completed 05/17/2019, 06/30/2017, 09/12/2015 GARDASIL-HPV IMMUNIZATION SERIES [...] on File Type Date Recorded Patient Director Water And Waste Services Expl anation POLST 02/04/2023 [place] DERS FOR LIFE-SUSTAINING TREATMENT POLST 06/17/2021 [place] DERS FOR LIFE-SUSTAINING TREATMENT Care Teams Seed Cleaning Manager Relationship Specialty Start Date End Date Damir De La Cruz MD [address], [place] [id number] PCP - General 04/04/00 documented as of this encounter
--- OUTSIDE RECORDS SUMMARY | 2023-06-13 13:08 | External Medical Summary | Summary of Care ---
Author Name Unknown Organization [facility] Address [address] [place] [address] Phone [phone] Care Team Providers Care Leveler Name Role Phone Yvon Gordon MD Primary Care Provider +1- [phone] Reason for Visit * Reason Onset Date Comments Medication Refill 03/14/2023 Encounter Details Date Type Department Care Team Description 03/14/2023 Refill [facility] [address] [place] [address] Yvon Gordon MD [address] [place] [address] Controlled substance agreement signed Allergies Active Allergy Reactions Severity Noted Date [...] 0 Active guaifenesin ER (MUCINEX) 600 MG [id number]:[place] PD, severe (HCC),Chronic cough Take 1 Tab [...] long-term current use of insulin ([facility]) Take 1 Tablet by mouth [...] of breath). 30 mL 0 03/04/2023 Active traMADol HCl 50 MG Oral Tablet (Ultram)Indication s:Controlled substance agreement signed Take 1 Tablet by mouth every 6 hours as needed for Pain, Moderate. 120 Tablet 0 03/16/2023 Active traZODone HCl 50 MG Oral Tablet (Desyrel) Take 1.5 Tablets by mouth at bedtime. May increase to 2 tab as tolerated or needed for insomnia 180 Tablet 0 03/16/2023 Active Albuterol Sulfate HFA 108 (90 Base) MCG/ACT Inhalation Aerosol Solution Inhale 2 Puffs by mouth every 4 hours as needed for Shortness of Breath. 18 g 2 03/16/2023 Active traMADol HCl 50 MG Oral Tablet (Ultram)Indication s:Controlled substance agreement signed TAKE 1 TABLET BY MOUTH EVERY 6 HOURS NEEDED FOR MODERATE PAIN 120 Tablet 0 02/05/2023 3 Discontinue d(Refill) documented as of this [...] encounter Miscellaneous Notes * Telephone Encounter - Yvon Gordon MD - 03/16/2023 8:47 AM EDTSigned Prescriptions: Disp Refills traMADol HCl 50 MG Oral Tablet (Ultram) 120 Ta*0 Sig: Take 1 Tablet by mouth every 6 hours as needed for Pain, Moderate.Authorizing Provider: YVON GORDON---- * Telephone Encounter - Patti Gray [facility] - 03/16/2023 6:58 AM EDTPending Prescriptions: Disp Refills traMADol HCl 50 MG Oral Tablet (Ultram) 120 Ta*0 Sig: Take 1 Tablet by mouth every 6 hours as needed for Pain, Moderate. * Telephone Encounter - Patti Gray [facility] - 03/16/2023 6:58 AM EDT I have reviewed the patients controlled substance dispensing history in the Prescription Drug Monitoring Program in compliance with the [facility] regulations before prescribing a controlled substance. PDMP checked on 03/16/2023. Pending Prescriptions: Disp Refills traMADol HCl 50 MG Oral Tablet (Ultram) 120 Ta*0 Last Visit: 02/16/2023 (in office), 06/12/2020 (telemedicine) Next Visit: Visit date not found Date medication was last filled: 02/09 Date medication is due for refill: 03/11 Pharmacy: [facility] [address] [address] Is this request for a controlled substance? Yes and Urine Drug Screen Not completed Toxicology results: Results for orders placed or performed in [...] results can be found in Results Review. Please approve if appropriate. Thank you, Patti Gray, PharmD. Clinical Pharmacist Central[facility] Pharmacy Services (CCPS) (formerly Telepharmacy) 03/16/2023, 6:58 AM documented in this encounter Plan of Treatment Upcoming Encounters Date Type Specialty Care Team Description 03/24/2023 Telemedicine [facility] Dallas Campbell PA-C [address] [place] [address] Emilee Flynn, Community Health Ux Researcher [address] [place] [address] 04/19/2023 Home Visit [facility] Brinda Gómez RN [address] [place] [address] Health Maintenance Due Date Last Done Comments [...] exists LUNG CANCER SCREENING - USE SMARTSET 21693 Completed 05/17/2019, 06/30/2017, 09/12/2015 GARDASIL-HPV IMMUNIZATION SERIES [...] as of this encounter Visit Diagnoses Diagnosis Controlled substance agreement signed Encounter for long-term (current) use of other medications documented in this encounter Advance Directives Documents on File Type Date Recorded Patient Special Education Science Teacher Expl anation POLST 02/04/2023 [place] OR DERS FOR LIFE-SUSTAINING TREATMENT POLST 06/17/2021 [place] DERS FOR LIFE-SUSTAINING TREATMENT Care Teams Leveler Relationship Specialty Start Date End Date Yvon Gordon MD [address] [place] [address] PCP - General 04/04/00 documented as of this encounter
--- OUTSIDE RECORDS SUMMARY | 2023-06-13 13:09 | External Medical Summary | Summary of Care ---
Author Name Unknown Organization [facility] Address [address] [place] [address] Phone [phone] Care Team Providers Care C4 Planner Name Role Phone Damir De La Cruz MD Primary Care Provider +1- [phone] Reason for Visit * Reason Onset Date Comments [facility]: Maintenance 02/25/2023 Encounter Details Date Type Department Care Team Description 02/25/2023 Telephone [facility], [facility] [address] [facility] [place] [address] Brinda Gómez, RN [address] [place] [address] [facility]: Maintenance Allergies Active Allergy Reactions Severity Noted Date Comments Prednisone Psych complications 10/23/2008 intolerance documented as of this encounter (statuses as of 02/26/2023) Medications Medication Sig Dispensed Refills Start Date [...] 0 Active guaifenesin ER (MUCINEX) 600 MG [id number]:ACCOUNTING/FINANCE TUTOR D, severe (HCC),Chronic cough Take 1 Tab [...] without long-term current use of insulin ([facility]) Take 1 Tablet by mouth [...] as of this encounter (statuses as of 02/26/2023) Active Problems Problem Noted Date HTN, goal below 140/90 12/21/2021 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 11/18/2021 POLST (Physician Orders for Life-Sustain ing Treatment) 06/17/2021 Controlled substance agreement signed COPD, 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 Patient notified of recommendations. * Telephone Encounter - Cb Mariee MD - 02/25/2023 5:01 PM EDT Colase does not work for opioid induced constipation, so I would recommend stopping it. To prevent opioid induced constipation: Try to drink at least 64 oz of fluids daily MiraLax 17 g 1 scoop in 12 oz water 1-2 times per day to keep stool soft Senna 8.6 mg 1-4 times daily to keep bowels moving at least every other day If the above is not effective, use Dulcolax suppository and call us Cb Mariee MD, [facility], [facility], FAAFP Bundle Breaker [facility] Palliative Care Service Available on [employer]apt[employer] * Telephone Encounter - Brinda Gómez RN - 02/25/2023 3:[address] Mariee, Pt asked that I reach out to you regarding her constipation. You recently ordered Morphine for her dyspnea, which she is very thankful for as it is working well at a low dose. She is however having constipation and taking docusate 100mg twice a day. She has taken dulcolax tablets also with relief. She is asking if there is something else you would recommend or order instead of having to take the dulcolax. Please advise. For any orders, pharmacy is [facility]. Thank you! documented in this encounter Plan of Treatment Upcoming Encounters Date Type Specialty Care Team Description 03/15/2023 Home Visit [facility] Brinda Gómez RN [address] [place] [address] 03/19/2023 Office Visit Family Medicine Ana Luisa Mcclain PA-C [address] [facility] [place] [address] Health Maintenance Due Date Last Done Comments [...] Additional history exists Pap Smear Discontinued 08/12/2016, 11/02, 11/09/2011, Additional history exists LUNG CANCER SCREENING - USE SMARTSET 14267 Completed 05/17/2019, 06/30/2017, 09/12/2015 GARDASIL-HPV IMMUNIZATION SERIES [...] Documents on File Type Date Recorded 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
--- OUTSIDE RECORDS SUMMARY | 2023-06-13 13:09 | External Medical Summary | Summary of Care ---
Author Name Unknown Organization [facility] Address [address] [place] [address] Phone [phone] Care Team Providers Care Electrical Instrumentation Technician Name Role Phone Damir De La Cruz MD Primary Care Provider +1- [phone] Reason for Visit * Reason Onset Date Comments [facility]: Maintenance 02/12/2023 Encounter Details Date Type Department Care Team Description 02/12/2023 Telephone [facility], [facility] [address] [facility] [place] [address] [facility], Nurse [address] [address] [facility]: Maintenance Allergies Active Allergy Reactions Severity Noted Date Comments Prednisone Psych complications 10/23/2008 intolerance documented as of this encounter (statuses as of 02/12/2023) Medications Medication Sig Dispensed Refills Start Date [...] 0 Active guaifenesin ER (MUCINEX) 600 MG [id number]: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 He is requesting information regarding diagnosis for Morphine use. Advised him pt has severe COPD. LV yesterday. Next visit: today with RN CM. Cuellar appreciative of information. Hoa Paul RN [facility] Intake Triage Coordinator [phone] documented in this encounter Plan of Treatment Upcoming Encounters Date Type Specialty Care Team Description 02/12/2023 Home Visit [facility] Emilee Herndon RN [address] [place] [address] 02/16/2023 Office Visit Family Medicine Damir De La Cruz MD [address] [place] [address] 02/22/2023 Telemedicine [facility] Brandie Garvey CRNP [address] [facility] [place] [address] Yelitza Orozco, Community Health [address] [place] [address] 03/19/2023 Office Visit Family Medicine Ana Luisa Mccalin PA-C [address] [place] [address] Health Maintenance Due Date Last Done Comments DISCUSS TOBACCO CESSATION (REFER TO SMARTSET #0785) 1955 Alpha-1 Antitrypsin 10/16/1973 Hepatitis C Screening 10/16/1973 [...] ASSESSMENT COMPLETED IN PAST YEAR FOR COPD 02/12/2024 02/11/2023 Lipid Panel 01/13/2026 01/13/2021, 0610/2019, 02/09/2018, Additional history exists DXA Scan 05/28/2027 05/28/2020, 08/2013, 09/12/2010, Additional history exists Pap Smear Discontinued 08/12/2016, 11/02, 11/09/2011, Additional history exists LUNG CANCER SCREENING - USE SMARTSET 47502 Completed 05/17/2019, 06/30/2017, 09/12/2015 GARDASIL-HPV IMMUNIZATION SERIES [...] Documents on File Type Date Recorded Patient Public Relations Player Expl anation POLST 06/17/2021 [place] [facility] FOR LIFE-SUSTAINING TREATMENT Care Teams Electrical Instrumentation Technician Relationship Specialty Start Date End Date Damir De La Cruz MD [address] [place] [address] PCP - General 04/04/00 documented as of this encounter
--- OUTSIDE RECORDS SUMMARY | 2023-06-13 13:09 | External Medical Summary | Summary of Care ---
Author Name Unknown Organization [facility] Address [address] [place] [address] Phone [phone] Care Team Providers Care Space Operations Officer Name Role Phone Damir De La Cruz MD Primary Care Provider +1- [phone] Encounter Details Date Type Department Care Team Description 02/23/2023 Orders Only Outcomes Research Department [address] [place] [address] Yoselin Juan CHRA [facility] Research Other*[id number] Allergies Active Allergy Reactions Severity Noted Date Comments Prednisone Psych complications 10/23/2008 intolerance documented as of this encounter (statuses as of 02/23/2023) Medications Medication Sig Dispensed Refills Start Date [...] 0 Active guaifenesin ER (MUCINEX) 600 MG [id number]:ASSISTANT SPEECH LANGUAGE PATHOLOGIST D, severe (HCC),Chronic cough Take 1 Tab [...] of breath). 30 mL 0 02/11/2023 Active Gabapentin 100 MG Oral Capsule (Neurontin) Take 1 Capsule by mouth in the morning and 1 Capsule at noon and 1 Capsule before bedtime. 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 11/05/19 Chronic rhinitis 08/22/2002 Tobacco use disorder 12/07/2000 Reflux esophagitis ADJ DISORDER W/DEPRES MOOD Neuropathy documented as of this encounter (statuses as of 02/23/2023) Resolved Problems Problem Noted Date Resolved Date [...] as of this encounter (statuses as of 02/23/2023) Immunizations Name Administration Dates Next Due COVID-19 [...] Encounters Date Type Specialty Care Team Description 02/24/2023 Home Visit [facility] Brinda Gómez RN [address] [place] [address] 03/19/2023 Office Visit Family Medicine Ana Luisa Mcclain [facility]reC [address] [facility] [id number] Scheduled Orders Name Type Priority Associated Diagnoses Orde r Schedule MYCODE SUBSEQUENT ADULT Lab Routine My[facility] Research Other*[id number] Every 6 Months for 2 Occurrences starting 02/23/2023 until 03/14/2024 Health Maintenance Due Date Last Done Comments [...] ASSESSMENT COMPLETED IN PAST YEAR FOR COPD 02/17/2024 02/16/2023 Lipid Panel 01/13/2026 01/13/2021, 10/2019, 02/09/2018, Additional history exists DXA Scan 05/28/2027 05/28/2020, 060 08/2013, 09/12/2010, Additional history exists Pap Smear Discontinued 08/12/2016, 11/02, 11/09/2011, Additional history exists LUNG CANCER SCREENING - USE SMARTSET 08779 Completed 05/17/2019, 06/30/2017, 09/12/2015 GARDASIL-HPV IMMUNIZATION SERIES [...] as of this encounter Visit Diagnoses Diagnosis My[facility] Research Other*[id number] documented in this encounter Advance Directives Documents on File Type Date Recorded Patient Counterintelligence Agent Expl anation POLST 02/04/2023 [place] DERS FOR LIFE-SUSTAINING TREATMENT POLST 06/17/2021 [place] OR DERS FOR LIFE-SUSTAINING TREATMENT Care Teams Space Operations Officer Relationship Specialty Start Date End Date Damir De La Cruz MD [address] [place], [place] [id number] PCP - General 04/04/00 documented as of this encounter
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
--- OUTSIDE RECORDS SUMMARY | 2023-06-13 13:09 | External Medical Summary | Summary of Care ---
Author Name Unknown Organization [facility] Address [address] [place] [address] Phone [phone] Care Team Providers Care Operating Room Scheduler Name Role Phone Damir De La Cruz MD Primary Care Provider +1- [phone] Reason for Referral * Evaluate & Treat - Unlimited Visits (Within 10 days (routine)) - Authorized Specialty Diagnoses / Procedures Referred By Contac t Referred To Contact Hospice and Palliative Medicine / Palliative Medicine Diagnoses COPD, severe (HCC) Nelson Katz DO [address] [place] [address] Referral ID Status Reason Start Date Expiration Date Visits Requested Visits Authorized [id number] Authorized Specialty Services Required 02/12/2023 999 999 Question Answer Referral Priority Within 10 days (routine) Reason for Referral: COPD Palliative Medicine To Address: Pain & Symptom Management Is this referral for [facility] Palliative service? ([facility] Insurance Only) Yes Comments Pt with severe end stage copd. Referral placed for hospice;however, pt has delayed the start for now. Requesting in home palliative provider visit. Reason for Visit * Reason Comments [facility]: Maintenance Encounter Details Date Type Department Care Team Description 02/12/2023 Home Visit [facility], [facility] [address] [place] [address] Emilee Herndon RN [address] [place] [address] COPD, severe (HCC)* Allergies Active Allergy Reactions Severity Noted Date [...] 0 Active guaifenesin ER (MUCINEX) 600 MG QH38Asclntrrsru:PUMPMAN D, severe (HCC),Chronic cough Take 1 Tab [...] Sign Reading Time Taken Comments Blood Pressure 118/64 02/12/2023 4:38 PM EDT Pulse 88 02/12/2023 4:38 PM EDT Temperature 36.8 C (98.3 F) 02/12/2023 4:38 PM ED T Respiratory Rate 22 02/12/2023 4:38 PM EDT Oxygen Saturation 100% 02/12/2023 4:38 PM EDT 4LPM Inhaled Oxygen Concentration - - Weight - - Height - - Body Mass Index - - documented in this encounter Progress Notes * Emilee Herndon RN - 02/12/2023 4:05 PM EDT [facility] Forestry Laborer Monthly Visit Date: 02/12/2023 Time: 4:07 PM Name: Iris Goodwin : 1955 Current Concerns: Patient being seen for 24 hour follow up to LUIS 1 visit following hospitalization for severe copd. Referred to hospice yesterday per patient request. States she was contacted yesterday and she askedthem to call her on Wednesday to set up visit. Patient reports that the morphine concentrate is helping with her sob and allowing her to move around without so much dyspnea. Also notes that today when her breathing became more labored, she put got on her trilogy machine for about an hour and a half and it helped also. Encouraged to continue using trilogy as much as she can. Asking if she can take the gabapentin and morphine concentrate together. Discussed with EMILIA TT rolepharmacist. "drug-drug interation for increased risk of BATTERY CONTAINER TESTER depression , but with palliative care consider risk vs benefit." Pt plans to talk to pcp regarding gabapentin dosing at her appointment 02/16/23. Patient would like palliative provider consult. Hospice is not in place yet. Delayed in start per pt request. To contact her next week. Will make palliative referral. Can cancel if not needed. Complained of "blocked" right ear. Large amount of soft wax noted in right ear blocking view of tympanic membrane. Flushed with warm water using elephant ear wash. Large chunks of soft yellow ear waxflowed out into basin. Pt denies any pain during process. Denies dizziness. Pt noted improved hearing. Small amount of soft wax still remaining. Instructed to obtain debrox drops and use per package instructions and have pcp assess at her follow up appt. Will place phone calls for weekend and RNCM follow up mid week next week to see if hospice admission is planned and then schedule return accordingly. Physical Exam: BP 118/64 (BP Site: Left Arm, BP Position: Sitting, BP Cuff Size: Pediatric) | Pulse 88 | Temp 36.8C (98.3 F) (Infrared ) | Resp 22 | LMP 07/22/2004 | SpO2 100% Comment: 4LPM Pain 2 Physical Exam Cardiovascular: Rate and Rhythm: Normal rate and regular rhythm. Neurological: Mental Status: She is alert. Problems/Symptoms: Medication Reconciliation: (See medication list) Does patient take medications as ordered: Yes Patient Well Being: PHQ2/9: No questionnaires available. [facility]-10 Completed this Visit: No. Routine visit and No falls since last visit Advanced Care Planning: POLST. Reinforced safety education and fall prevention. and Reinforced medication regimen. Timing., Dosing. and Purspose. Treatment/Plan: Continue use of morphine concentrate 0.25ml every 4 hours PRN sob Use trilogy NIV throughout the daylight hours as much as need for sob-the more you use, the better to help reduce CO2 retention. Continue all inhaled meds as ordered. Weekend phone calls to check in on sob, effectiveness of morphine. Hospice to call patient regarding start of care on Wednesday, 02/15. Pcp follow up 02/16 RNCM phone call 02/17/23 Placed palliative provider referral for symptom management until hospice is well established Home Interventions Provided: Consulted PCP/Specialist Reinforced current Plan of Care, including self-management and medication regimen Patient Needs to Remember: Call [facility] at with any new or worsening health concerns or problems, red flag symptoms. Referrals Needed: Other palliative Follow Up: Is there cellular connectivity/connectivity in the home? Yes Does the patient have internet in the home? No Patient encouraged to call the intake phone number for all urgent but not emergent issues. Is the patient new to [facility] within the last 30 days? Yes, Is this a Transitions of Care visit? Yes, this is the 2nd visit or later, Yes cellular connectivity. Was their Readmission Risk Score less than 18%? No Provider is in agreement with Plan of Care: Yes Scheduled to follow up with patient in 24 hours. Emilee Herndon RN 02/12/2023 4:07 PM documented in this encounter Plan of Treatment Upcoming Encounters Date Type Specialty Care Team Description 02/13/2023 Scheduled Telephone [facility], Nurse [address] [place] [address] 02/14/2023 Scheduled Telephone [facility], Nurse [address] [place] [address] 02/16/2023 Office Visit Family Medicine Damir De La Cruz MD [address] [place] [address] 02/17/2023 Scheduled Telephone [facility] Brinda Gómez RN [address] [facility] [place] [address] 03/19/2023 Office Visit Family Medicine Ana Luisa Mcclain PATigreC [address] [place] [address] Scheduled Referrals Name Type Priority Associated Diagnoses Orde r Schedule PALLIATIVE CARE REFERRAL OP Referral Within 10 days (routine) COPD, severe (HCC) Ordered: 02/12/2023 Health Maintenance Due Date Last Done Comments DISCUSS TOBACCO CESSATION (REFER TO SMARTSET #3291) 1955 Alpha-1 Antitrypsin 10/16/1973 Hepatitis C Screening [...] exists LUNG CANCER SCREENING - USE SMARTSET [id number] Completed 05/17/2019, 06/30/2017, 09/12/2015 GARDASIL-HPV IMMUNIZATION SERIES [...] as of this encounter Visit Diagnoses Diagnosis COPD, severe (HCC)- Primary Chronic airway obstruction, not elsewhere classified documented in this encounter Advance Directives Documents on File Type Date Recorded 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
--- OUTSIDE RECORDS SUMMARY | 2023-06-13 13:09 | External Medical Summary | Summary of Care ---
Author Name Unknown Organization [facility] Address [address] [place] [address] Phone [phone] Care Team Providers Care Production Posting Clerk Name Role Phone Damir De La Cruz MD Primary Care Provider +1- [phone] Reason for Referral * Ancillary Services (Within 30 days (routine)) - Authorized Specialty Diagnoses / Procedures Referred By Roxane dennison Referred To Contact HOME CARE / Palliative Medicine Diagnoses COPD, severe (HCC) César Mariee MD [address] [place] [address] Referral ID Status Reason Start Date Expiration Date Visits Requested Visits Authorized [id number] Authorized Ancillary Services Required 02/11/2023 999 999 Question Answer Referral Priority Within 30 days (routine) Reason for Visit * Reason Onset Date Comments Advice 02/11/2023 Encounter Details Date Type Department Care Team Description 02/11/2023 Telephone [facility] [address] [place] [address] Emilee Herndon, RN [address] [place] [address] Advice Allergies Active Allergy Reactions Severity Noted [...] 0 Active guaifenesin ER (MUCINEX) 600 MG [id number]:[place] PD, severe (HCC),Chronic cough Take 1 Tab [...] of breath). 30 mL 0 02/11/2023 Active B Complex Tablet Take 1 Tab [...] encounter Miscellaneous Notes * Telephone Encounter - Emilee Herndon RN - 02/12/2023 12:54 PM EDT Sharing with PCP also. FYI-pt referred to hospice for severe copd. Chose [facility] as agency. Plan is for admission week of 02/15/23 per patient preference. She still plans to keep her appointment with PCP scheduled for 02/16/23. Please reach out with any questions. Thank you, Emilee Herndon RN, [facility] 02/12/2023 12:55 PM * Addendum Note - César Mariee MD - 02/11/2023 2:37 PM EDTAddended by: CÉSAR MARIEE on: 02/11/2023 02:37 PM Modules accepted: Orders * Telephone Encounter - César Mariee MD - 02/11/2023 2:23 PM EDT I d/w Bessie Scott. Pt desires hospice at home Feeling SOB despite trilogy at night o2 at 5 lpm. I spoke w/ pt She confirms desire for hospice Plan: Confirmed Pulmicort and Brovana nebs twice daily DuoNeb up to 4 times daily Trilogy NIV through the night and add 1 hour in the daytime Discussed benefits and burdens of low-dose morphine. She has refractory dyspnea despite optimal medication management. States she used morphine in the hospital with relief of dyspnea. Will start morphine 5 mg q.4 hours p.r.n. Refer to hospice César Mariee MD, [facility] [place], FAAFP [facility] Available on [employer] * Telephone Encounter - Emilee Herndon RN - 02/11/2023 1:53 PM EDT Communication Note Name: Iris Goodwin Situation: 67 year old female with hx of COPD with multiple recent hospitalizations for respiratoryfailure being seen for LUIS 1 visit following most recent admission 02/03-02/08/23. Background: Patient discharged home from [facility] on 02/08/23. While inpatient, she was seen [...] at Would like hospice initiated cheyenne. Has a good bit of air hunger and would like medication for that cheyenne. 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 States she asked at the hospital, but referrals were not made. X acp note completed. POLST scanned into chart. Spoke with [facility] Henrietta Barrientos-confirms they could accept Recommendation: Message to [facility] with update. Request for hospice orders [facility] for any Rx documented in this encounter Plan of Treatment Upcoming Encounters Date Type Specialty Care Team Description 02/12/2023 [facility] Emilee Herndon RN [address] [place] [address] 02/16/2023 Office Visit Family Medicine Damir De La Cruz MD [address] [place] [address] 03/19/2023 Office Visit Family Medicine Ana Luisa Mcclain PA-C [address] [place] [address] Scheduled Referrals Name Type Priority Associated Diagnoses Orde r Schedule HOSPICE REFERRAL OP Referral Within 30 da ys (routine) COPD, severe (HCC) Ordered: 02/11/2023 Health Maintenance Due Date Last Done Comments DISCUSS TOBACCO CESSATION (REFER TO SMARTSET #6535) 1955 Alpha-1 Antitrypsin 10/16/1973 Hepatitis C Screening [...] COPD 02/12/2024 02/11/2023 Lipid Panel 01/13/2026 01/13/2021, 06/0 10/2019, 02/09/2018, Additional history exists DXA Scan 05/28/2027 05/28/2020, 06/0 08/2013, 09/12/2010, Additional history exists Pap Smear Discontinued 08/12/2016, 11/02, 11/09/2011, Additional history exists LUNG CANCER SCREENING - USE SMARTSET 80980 Completed 05/17/2019, 06/30/2017, 09/12/2015 GARDASIL-HPV IMMUNIZATION SERIES [...] Documents on File Type Date Recorded Patient Cash Applications Clerk Expl anation POLST 06/17/2021 [place] OR [facility] FOR LIFE-SUSTAINING TREATMENT Care Teams Production Posting Clerk Relationship Specialty Start Date End Date Damir De La Cruz MD [address] [place] [address] PCP - General 04/04/00 documented as of this encounter
--- OUTSIDE RECORDS SUMMARY | 2023-06-13 13:09 | External Medical Summary | Summary of Care ---
Author Name Unknown Organization [facility] Address [address] [place] [address] Phone [phone] Care Team Providers Care Benefits Technician Name Role Phone Damir De La Cruz MD Primary Care Provider +1- [phone] Reason for Visit * Reason Comments [facility]: Maintenance Encounter Details Date Type Department Care Team Description 02/25/2023 [facility] Visit [facility], [facility] [address] [place] [address] Brinda Gómez, RN [address] [place] [address] Allergies Active Allergy Reactions Severity Noted Date Comments Prednisone Psych complications 10/23/2008 intolerance documented as of this encounter (statuses as of 02/25/2023) Medications Medication Sig Dispensed Refills Start Date [...] 0 Active guaifenesin ER (MUCINEX) 600 MG [id number]:RETORT SETTER D, severe (HCC),Chronic cough Take 1 Tab [...] without long-term current use of insulin ([facility]) Take 1 Tablet by mouth in the [...] as of this encounter (statuses as of 02/25/2023) Active Problems Problem Noted Date HTN, goal below 140/90 12/21/2021 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 11/18/2021 POLST (Physician Orders for Life-Sustain ing Treatment) 06/17/2021 Controlled substance agreement signed COPD, severe 11/12/2011 DM type 2 causing renal disease 11/05/19 Chronic rhinitis 08/22/2002 Tobacco use disorder 12/07/2000 Reflux esophagitis ADJ DISORDER W/DEPRES MOOD Neuropathy documented as of this encounter (statuses as of 02/25/2023) Resolved Problems Problem Noted Date Resolved Date [...] as of this encounter (statuses as of 02/25/2023) Immunizations Name Administration Dates Next Due COVID-19 [...] on file documented as of this encounter Progress Notes * Brinda Gómez RN - 02/25/2023 3:19 PM EDT [facility] Visit Date: 02/25/2023 Time: 3:20 PM Name: Iris Goodwin : 1955 Current Concerns: Pt seen for return RNCM to flush ears Pt has been having cerumen build up of right ear Checked via otoscope today and noted a large amount in ear canal Flushed ear using elephant ear wash kit and large amount of cerumen was flushed out. Very small amount left noted on wall of ear canal, stuck and unable to flush off Pt reports "feels much better" and reports being able to hear much better now. Pt reports she has constipation with morphine use and would like Dr. Mariee's recommendations on what to take besides the docusate twice a day and dulcolax tabs prn TE sent to Dr. Mariee Physical Exam: LMP 07/22/2004 Pain 0 Problems/Symptoms: Medication Reconciliation: (See medication list) Does patient take medications as ordered: Yes Patient Well Being: PHQ2/9: No questionnaires available. No change in living situation [facility] Completed this Visit: No. Routine visit and No falls since last visit Advanced Care Planning: Living Will. and POLST. Reinforcement/Education: Educated on home safety: Create [...] paid cg program - gets reimbursement from [facility] - cg three times a week (8hrs each week) Uses Trillogy NIV overnight Morphine sulfate prn dyspnea Palliative to be involved Home Interventions Provided: Home Intervention: Other; Right ear flush Reinforced current Plan of Care, including self-management and medication regimen Patient Needs to Remember: Call [facility] at with any new or worsening health concerns or problems, red flag symptoms. Follow Up: Is there cellular connectivity/connectivity in the home? Yes Does the patient have internet in the home? Yes Patient encouraged to call the intake phone number for all urgent but not emergent issues. Is the patient new to [facility] within the last 30 days? No, Assess appropriateness for upcoming telehealth visits. Cancel telehealth visits & schedule home visit with care guest service team leader(s)as indicated. Provider is in agreement with Plan of Care: Yes Scheduled to follow up with patient in 2 weeks. 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
--- OUTSIDE RECORDS SUMMARY | 2023-06-13 13:09 | External Medical Summary | Summary of Care ---
Author Name Unknown Organization [facility] Address [address] [place] [address] Phone [phone] Care Team Providers Care Wireless Internet Installer Name Role Phone Damir De La Cruz MD Primary Care Provider +1- [phone] Reason for Referral * Ancillary Services (Within 30 days (routine)) - Authorized Specialty Diagnoses / Procedures Referred By Roxane dennison Referred To Contact HOME CARE / Palliative Medicine Diagnoses COPD, severe (HCC) César Mariee MD [address] [place] [address] Referral ID Status Reason Start Date Expiration Date Visits Requested Visits Authorized [id number] Authorized Ancillary Services Required 02/11/2023 999 999 Question Answer Referral Priority Within 30 days (routine) Reason for Visit * Reason Onset Date Comments Advice 02/11/2023 Encounter Details Date Type Department Care Team Description 02/11/2023 Telephone [facility] [address] [place] [address] Emilee Herndon, RN [address] [place] [address] Advice Allergies Active Allergy Reactions Severity Noted Date Comments Prednisone Psych complications 10/23/2008 intolerance documented as of this encounter (statuses as of 02/11/2023) Medications Medication Sig Dispensed Refills Start Date [...] 0 Active guaifenesin ER (MUCINEX) 600 MG RF19Gqoqnfpabxt:[place] PD, severe (HCC),Chronic cough Take 1 Tab [...] as of this encounter (statuses as of 02/11/2023) Active Problems Problem Noted Date HTN, goal below 140/90 12/21/2021 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] p.r.n. Refer to hospice César Mariee MD, [facility], [facility], FAAFP [facility]) [facility] Available on [employer] * Telephone Encounter - Emilee Herndon RN - 02/11/2023 1:53 PM EDT Communication Note Name: Iris Goodwin Situation: 67 year old female with hx of COPD with multiple recent hospitalizations for respiratoryfailure being seen for LUIS 1 visit following most recent admission 02/03-02/08/23. Background: Patient discharged home from [facility] on 02/08/23. While inpatient, she was seen [...] that cheyenne. 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 States she asked at the hospital, but referrals were not made. X acp note completed. POLST scanned into chart. [facility] Recommendation: Message to [facility] with update. Request for hospice orders [facility] for any Rx documented in this encounter Plan of Treatment Upcoming Encounters Date Type Specialty Care Team Description 02/16/2023 Office Visit Family Medicine Damir De La Cruz MD [address] [facility] [place] [id number] 02/16/2023 [facility] Visit [facility] Emilee Herndon, TASIA [address] [facility] [place] [address] 02/22/2023 [facility]medicine [facility] Brandie Garvey CRNP [address] [facility] [place] [address] Yelitza Orozco, Community Health Edi Consultant [address] [place] [address] [place] [id number] 03/19/2023 Office Visit Family Medicine Ana Luisa Mcclain PA-C [address] [place] [address] Scheduled Referrals Name Type Priority Associated Diagnoses [...] ASSESSMENT COMPLETED IN PAST YEAR FOR COPD 01/26/2024 01/25/2023 Lipid Panel 01/13/2026 01/13/2021, 10/2019, 02/09/2018, Additional history exists DXA Scan 05/28/2027 05/28/2020, 060 08/2013, 09/12/2010, Additional history exists Pap Smear Discontinued 08/12/2016, 11/02, 11/09/2011, Additional history exists LUNG CANCER SCREENING - USE SMARTSET 34579 Completed 05/17/2019, 06/30/2017, 09/12/2015 GARDASIL-HPV IMMUNIZATION SERIES [...] Documents on File Type Date Recorded Patient District Court Administrator Expl anation POLST 06/17/2021 [place] OR [facility] FOR LIFE-SUSTAINING TREATMENT Care Teams Wireless Internet Installer Relationship Specialty Start Date End Date Damir De La Cruz MD [address] [place] [address] PCP - General 04/04/00 documented as of this encounter
--- OUTSIDE RECORDS SUMMARY | 2023-06-13 13:09 | External Medical Summary | Summary of Care ---
Author Name Unknown Organization [facility] Address [address] [place] [address] Phone [phone] Care Team Providers Care Client Development Manager Name Role Phone Damir De La Cruz MD Primary Care Provider +1- [phone] Reason for Visit * Reason Comments [facility]: Transition of Care Encounter Details Date Type Department Care Team Description 02/11/2023 [facility], [facility] [address] [facility] [place] [address] Emilee Herndon, RN [address] [facility] [place] [address] Advanced care planning/counseling discussion* Allergies Active Allergy [...] 0 Active guaifenesin ER (MUCINEX) 600 MG WD62Llohaxvhteq:[place] PD, severe (HCC),Chronic cough Take 1 Tab [...] 02/11/2023 12:30 PM EDT [facility] Super[facility] Agency Appointments TOC1 Visit Date: 02/11/2023 Time: 1:00 PM Name: Iris Goodwin : 1955 Communication Note Name: Iris Goodwin Situation: 67 year old female with hx of COPD with multiple recent hospitalizations for respiratoryfailure being seen for LUIS 1 visit following most recent admission 02/03-02/08/23. Background: Patient discharged home from [facility] on 02/08/23. While inpatient, she was [...] that cheyenne. 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 States she asked at the hospital, but referrals were not made. X acp note completed. POLST scanned into chart. [facility] pt using Trilogy. Recommendation: Message to [facility] with update. Request for hospice orders-referral sent to [facility] per pt request [facility] for any [...] Uncontrolled pain Patient Needs to Remember: Call [facility] at with any new or worsening health concerns or problems, red flag symptoms. Referrals Needed: Other Hospice Follow Up: Is there cellular connectivity/connectivity in the home? Yes Does the patient have internet in the home? No Patient encouraged to call the intake phone number for all urgent but not emergent issues. Is the patient new to [facility] within the last 30 [...] Individual(s) present for conversation: Patient Decisions Synopsis Integrated biometrics Most Recent Value Past ~10 years 02/11/2023 [...] chooses Dying at home Additional Comments Synopsis Integrated biometrics Most Recent Value Past ~10 years 02/11/2023 [...] Discerning What Matters Most to the Patient: Equiomopsis Integrated biometrics Most Recent Value Past ~10 years 02/11/2023 [...] defines as: wants to avoid hospital and half-way altogether 02/11/2023 wants to avoid hospital and half-way altogether The patient defines LIVING WELL as: [...] Going back to the hospital;Going to a half-way;Dying with uncontrolled symptoms 02/11/2023 Going back to the hospital;Going to a half-way;Dying with uncontrolled symptoms Dying with uncontrolled symptoms include: Pain;Dyspnea;Nausea;Vomiting;Fatigue;Anxiety;Depression;Constipation;Poor appetite;Reduced overall well being;Difficulty moving 02/11/2023 Pain;Dyspnea;Nausea;Vomiting;Fatigue;Anxiety;Depression;Constipation;Poor appetite;Reduced overall well being;Difficulty moving The patient considers these as 'UNACCEPTABLE OUTCOMES': Prolonged mechanical ventilation (define below);Prolonged hospital stay (define below);Prolonged half-way stay (define below) 02/11/2023 Prolonged mechanical ventilation (define below);Prolonged hospital stay (define below);Prolonged half-way stay (define below) Source: Content from [employer] Program Aligning Care With What Matters Most: Equiomopsis Integrated biometrics Most Recent Value Past ~10 years 02/11/2023 13:46 Aligning Care With What Matters Most Interventions/Choices: CPR;Intubation/mechanical ventilation;Non-invasive ventilation or BIPAP;Antibiotic therapy;Artificial nutrition;IV hydration;Surgical procedure;Blood transfusion;Lab draws;Hospice;Transport; at home 02/11/2023 CPR;Intubation/mechanical ventilation;Non-invasive ventilation or BIPAP;Antibiotic therapy;Artificial nutrition;IV hydration;Surgical procedure;Blood transfusion;Lab draws;Hospice;Transport; at home Rationale for Decisions Synopsis Integrated biometrics Most Recent Value Past ~10 years 02/11/2023 [...] 02/11/2023 if it could help/ comfort. Synopsis Integrated biometrics Most Recent Value Past ~10 years 02/11/2023 [...] Choices Program 40 minutes spent in direct [id number]-iw-hwyv discussion today, Emilee Herndon RN documented in this encounter Plan of Treatment Upcoming Encounters Date Type Specialty Care Team Description 02/12/2023 [facility] Visit [facility] Emilee Herndon RN [address] [place] [address] 02/16/2023 Office Visit Family Medicine Damir De La Cruz MD [address] [place] [facility] [place] [address] 03/19/2023 Office Visit Family Medicine Ana Luisa Mcclain PA-C [address] [place] [facility] [address] Health Maintenance Due Date Last Done Comments DISCUSS TOBACCO CESSATION (REFER TO SMARTSET #5416) 1955 Alpha-1 Antitrypsin 10/16/1973 Hepatitis C Screening [...] exists LUNG CANCER SCREENING - USE SMARTSET 79026 Completed 05/17/2019, 06/30/2017, 09/12/2015 GARDASIL-HPV IMMUNIZATION SERIES [...] Documents on File Type Date Recorded 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
--- OUTSIDE RECORDS SUMMARY | 2023-06-13 13:09 | External Medical Summary | Summary of Care ---
Author Name Unknown Organization [facility] Address [address] [place] [address] Phone [phone] Care Team Providers Care Light Technician Name Role Phone Damir De La Cruz MD Primary Care Provider +1- [phone] Reason for Visit * Reason Onset Date Comments [facility]: Maintenance 02/24/2023 Encounter Details Date Type Department Care Team Description 02/24/2023 Telephone [facility], [facility] [address] [place] [address] Brinda Gómez, RN [address] [place] [address] [facility]: Maintenance Allergies Active Allergy [...] 0 Active guaifenesin ER (MUCINEX) 600 MG LE95Ifcfzwkdbwj:[place] PD, severe (HCC),Chronic cough Take 1 Tab [...] before bedtime. 60 Capsule 0 02/24/2023 Active Gabapentin 100 MG Oral Capsule (Neurontin) [...] encounter Miscellaneous Notes * Telephone Encounter - Damir De La Cruz MD - 02/24/2023 3:03 PM EDT It would be lyrica (pregabalin). Start with 25 mg bid since she was on low dose gabapentin. We can increase, if needed. Sent erx * Telephone Encounter - Brinda Gómez RN - 02/24/2023 2:[address] De La Cruz, Pt seen for home visit today. She reports that at her last appt with you on 02/16 you had discussed stopping the Gabapentin and putting her on another med for her nerve pain that would not make her sodrowsy. She cannot remember the name of the med. Do you remember what med that is and she is interested in switching to it if you would please order. Thank you! 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
--- OUTSIDE RECORDS SUMMARY | 2023-06-13 13:09 | External Medical Summary | Summary of Care ---
Author Name Unknown Organization [facility] Address [address] [place] [address] Phone [phone] Care Team Providers Care Sample Puller Name Role Phone Damir De La Cruz MD Primary Care Provider +1- [phone] Reason for Visit * Reason Onset Date Comments [facility]: Maintenance 02/17/2023 Encounter Details Date Type Department Care Team Description 02/17/2023 Scheduled Telephone [facility], [facility] [address] [address] Brinda Gómez, RN [address] [place] [address] Allergies Active Allergy Reactions Severity Noted Date Comments Prednisone Psych complications 10/23/2008 intolerance documented as of this encounter (statuses as of 02/17/2023) Medications Medication Sig Dispensed Refills Start Date [...] 0 Active guaifenesin ER (MUCINEX) 600 MG [id number]:NURSING INFORMATION SYSTEMS COORDINATOR D, severe (HCC),Chronic cough Take 1 [...] without long-term current use of insulin ([facility]) Take 1 Tablet by mouth in the [...] as of this encounter (statuses as of 02/17/2023) Active Problems Problem Noted Date HTN, goal below 140/90 12/21/2021 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 11/18/2021 POLST (Physician Orders for Life-Sustain ing Treatment) 06/17/2021 Controlled substance agreement signed COPD, severe 11/12/2011 DM type 2 causing renal disease 11/05/19 Chronic rhinitis 08/22/2002 Tobacco use disorder 12/07/2000 Reflux esophagitis ADJ DISORDER W/DEPRES MOOD Neuropathy documented as of this encounter (statuses as of 02/17/2023) Resolved Problems Problem Noted Date Resolved Date [...] as of this encounter (statuses as of 02/17/2023) Immunizations Name Administration Dates Next Due COVID-19 [...] Telephone Encounter - Brinda Gómez RN - 02/17/2023 2:46 PM EDT Telephone call to pt to f/u on status/hospice admission. Saw PCP yesterday. [facility] is coming this evening to admit pt to hospice services. Pt reports she has been having some constipation since starting Morphine. She has started metamucil gummies yesterday and had a very small hard bm this am She has dulcolax on hand and is going to take 1 tab today also. Pt requests to keep [facility] services at this time, will keep on until well established with hospice. Set up for RNCM visit next week. Advised pt to call if any needs/red flags arise, no bm with use of stool softener/laxative. Pt verbalizes understanding and has 833 # on hand. documented in this encounter Plan of Treatment Upcoming Encounters Date Type Specialty Care Team Description 02/24/2023 Home Visit [facility] Brinda Gómez RN [address] [place] [address] 03/19/2023 Office Visit Family Medicine Ana Luisa Mcclain [facility]igreC [address] [facility] [address] Health Maintenance Due Date Last Done Comments [...] exists LUNG CANCER SCREENING - USE SMARTSET 92706 Completed 05/17/2019, 06/30/2017, 09/12/2015 GARDASIL-HPV IMMUNIZATION SERIES [...] Documents on File Type Date Recorded Patient Baby Formula Worker Expl anation POLST 02/04/2023 [place] DERS FOR LIFE-SUSTAINING TREATMENT POLST 06/17/2021 [place] DERS FOR LIFE-SUSTAINING TREATMENT Care Teams Sample Puller Relationship Specialty Start Date End Date Damir De La Cruz MD [address], [place] [id number] PCP - General 04/04/00 documented as of this encounter
--- OUTSIDE RECORDS SUMMARY | 2023-06-13 13:09 | External Medical Summary | Summary of Care ---
Author Name Unknown Organization [facility] Address [address] [place] [address] Phone [phone] Care Team Providers Care Soaking Pit Operator Name Role Phone Damir De La Cruz MD Primary Care Provider +1- [phone] Reason for Visit * Reason Onset Date Comments [facility]: Maintenance 02/14/2023 Encounter Details Date Type Department Care Team Description 02/14/2023 Scheduled Telephone [facility], [facility] [address] [place] [address] [facility], Nurse [facility] [address] [place] [address] Allergies Active Allergy Reactions Severity Noted Date Comments Prednisone Psych complications 10/23/2008 intolerance documented as of this encounter (statuses as of 02/14/2023) Medications Medication Sig Dispensed Refills Start Date [...] 0 Active guaifenesin ER (MUCINEX) 600 MG [id number]:HARDWOOD FLOOR SANDER D, severe (HCC),Chronic cough Take 1 Tab [...] long-term current use of insulin ([facility]) Take 1 Tablet by mouth [...] as of this encounter (statuses as of 02/14/2023) Active Problems Problem Noted Date HTN, goal below 140/90 12/21/2021 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 11/18/2021 POLST (Physician Orders for Life-Sustain ing Treatment) 06/17/2021 Controlled substance agreement signed COPD, severe 11/12/2011 DM type 2 causing renal disease 11/05/19 Chronic rhinitis 08/22/2002 Tobacco use disorder 12/07/2000 Reflux esophagitis ADJ DISORDER W/DEPRES MOOD Neuropathy documented as of this encounter (statuses as of 02/14/2023) Resolved Problems Problem Noted Date Resolved Date [...] as of this encounter (statuses as of 02/14/2023) Immunizations Name Administration Dates Next Due COVID-19 [...] Telephone Encounter - Brinda Gómez RN - 02/14/2023 2:03 PM EDT Telephone call to pt for wellness check, f/u on SOB/use of Morphine and Trilogy. No answer on pt's phone. Left VM to return call to [facility], number provided. documented in this encounter Plan of Treatment Upcoming Encounters Date Type Specialty Care Team Description 02/16/2023 Office Visit Family Medicine Damir De La Cruz MD [address] [place] [facility] [place] [facility] [place] [address] 02/17/2023 Scheduled Telephone [facility] Brinda Gómez, RN [address] [place] [address] 03/19/2023 Office Visit Family Medicine Ana Luisa Mcclain PA-C [address] [place] [address] Health Maintenance Due Date Last Done Comments DISCUSS TOBACCO CESSATION (REFER TO SMARTSET #9546) 1955 Alpha-1 Antitrypsin 10/16/1973 Hepatitis C Screening [...] Vaccine (FLU shot) (#1) 2023 Albumin/Creatinine Ratio 06/15/20232 022, 12/07/2019, 05/08/2019, Additional history exists GFR 06/15/2023 06/15/2022, 01/02, 12/07/2019, Additional history exists O2 ASSESSMENT COMPLETED IN PAST YEAR FOR COPD 02/13/2024 02/12/2023 Lipid Panel 01/13/2026 01/13/2021, 10/2019, 02/09/2018, Additional history exists DXA Scan 05/28/2027 05/28/2020, 08/2013, 09/12/2010, Additional history exists Pap Smear Discontinued 08/12/2016, 11/02, 11/09/2011, Additional history exists LUNG CANCER SCREENING - USE SMARTSET 82016 Completed 05/17/2019, 06/30/2017, 09/12/2015 GARDASIL-HPV IMMUNIZATION SERIES [...] Documents on File Type Date Recorded Patient Fine Artist Expl anation POLST 06/17/2021 [place] [facility] FOR LIFE-SUSTAINING TREATMENT Care Teams Soaking Pit Operator Relationship Specialty Start Date End Date Damir De La Cruz MD [address] [place] [address] PCP - General 04/04/00 documented as of this encounter
--- OUTSIDE RECORDS SUMMARY | 2023-06-13 13:09 | External Medical Summary | Summary of Care ---
Author Name Unknown Organization [facility] Address [address] [place] [address] Phone [phone] Care Team Providers Care Costume Seamstress Name Role Phone Damir De La Cruz MD Primary Care Provider +1- [phone] Reason for Visit * Reason Onset Date Comments [facility]: Maintenance 02/13/2023 Encounter Details Date Type Department Care Team Description 02/13/2023 Scheduled Telephone [facility], [facility] [address] [place] [address] [facility], Nurse [facility] [address] [place] [address] Allergies Active Allergy Reactions Severity Noted Date Comments Prednisone Psych complications 10/23/2008 intolerance documented as of this encounter (statuses as of 02/13/2023) Medications Medication Sig Dispensed Refills Start Date [...] 0 Active guaifenesin ER (MUCINEX) 600 MG [id number]:WEB DEVELOPMENT CONSULTANT D, severe (HCC),Chronic cough Take 1 Tab [...] nephropathy, without long-term current use of insulin ([facility]) Take 1 Tablet by mouth [...] as of this encounter (statuses as of 02/13/2023) Active Problems Problem Noted Date HTN, goal below 140/90 12/21/2021 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 11/18/2021 POLST (Physician Orders for Life-Sustain ing Treatment) 06/17/2021 Controlled substance agreement signed COPD, severe 11/12/2011 DM type 2 causing renal disease 11/05/19 Chronic rhinitis 08/22/2002 Tobacco use disorder 12/07/2000 Reflux esophagitis ADJ DISORDER W/DEPRES MOOD Neuropathy documented as of this encounter (statuses as of 02/13/2023) Resolved Problems Problem Noted Date Resolved Date [...] as of this encounter (statuses as of 02/13/2023) Immunizations Name Administration Dates Next Due COVID-19 [...] encounter Miscellaneous Notes * Telephone Encounter - Colette Ang RN - 02/13/2023 3:32 PM EDT [facility] Telephonic Nurse Follow-Up Call [facility] Subprogram: Focused Care Management (3-9 months) Follow Up Call Type: Routine follow up call / Status Check Acute issue requiring follow-up call: Other: breathing Objective: 02/12/2023 4:38 PM 02/11/2023 12:30 PM 01/25/2023 4:08 PM 11/20/2021 11:24 AM 06/17/2021 1:52 PM VITALS ACROSS ENCOUNTERS BP 118/64 122/64 112/64 114/64 128/68 Pulse 88 110 95 84 94 Weight 35.7 kg 36.7 kg 40.8 kg BMI 14.89 kg/m2 15.3 kg/m2 17.01 kg/m2 No results found for: BLOOD, PROTEIN, ESTERASE, WBC, NITRITE, QUANT URINE CULTURE GROWTH No results found for: WBC AUTO - [facility], HGB - [facility], PLATELET AUTO - [facility] No results found for: SODIUM - [facility], POTASSIUM - [facility], MAGNESIUM - [facility], CO2 - [facility], CREATININE - [facility], ESTIMATED GLOMERULAR FILTRATION RATE - [facility], ALBUMIN - [facility],AST - [facility], ALT - [facility], ALKALINE PHOSPHATASE - [facility] No results found for: PRO BNP, LEFT VENTRICULAR EJECTION FRACTION Remote Patient Monitoring: NONE Oxygen Needs: NO CHANGE from baseline supplemental oxygen needs DME Needs: NO DME needs identified Medications: No medication or dose adjustments made during acute episode Subjective: Condition Status: Improvement in symptoms but not at baseline Current Concerns: Spoke with Iris, notes she is having a good day today, SPO2 96% on 4lpm, was on her trilogy for 2 hours. Appreciative of the call. Disposition: Follow up call scheduled for tomorrow with PRE PAROLE COUNSELING AIDE Veneer Drier Tailer Future Visits Scheduled: Future Appointments-next 60 days Date/Time Provider Specialty Dept Phone 02/14/2023 2:[address] [facility] [phone] 02/16/2023 2:00 PM (Arrive by 1:45 PM) Damir De La Cruz MD Family Medicine [phone] 02/17/2023 3:00 PM Brinda Gómez RN [facility] [phone] 03/19/2023 12:00 PM (Arrive by 11:45 AM) Ana Luisa Mcclain PA-C Family Medicine [phone] Colette Ang, RN documented in this encounter Plan of Treatment Upcoming Encounters Date Type Specialty Care Team Description 02/14/2023 Scheduled Telephone [facility], Nurse [place] [address] [address] [place] [address] 02/16/2023 Office Visit Family Medicine Damir De La Cruz MD [address] [place] [address] 02/17/2023 Scheduled Telephone [facility] Brinda Gómez RN [address] [place] [address] 03/19/2023 Office Visit Family Medicine Ana Luisa Mcclain PA-C [address] [place] [address] Health Maintenance Due Date Last Done Comments DISCUSS TOBACCO CESSATION (REFER TO SMARTSET #6817) 1955 Alpha-1 Antitrypsin 10/16/1973 Hepatitis C Screening [...] exists LUNG CANCER SCREENING - USE SMARTSET 36484 Completed 05/17/2019, 06/30/2017, 09/12/2015 GARDASIL-HPV IMMUNIZATION SERIES [...] Documents on File Type Date Recorded Patient Pulp Tester Expl anation POLST 06/17/2021 [place] [facility] FOR LIFE-SUSTAINING TREATMENT Care Teams Costume Seamstress Relationship Specialty Start Date End Date Damir De La Cruz MD [address] [place] [address] PCP - General 04/04/00 documented as of this encounter
--- OUTSIDE RECORDS SUMMARY | 2023-06-13 13:09 | External Medical Summary | Summary of Care ---
Author Name Unknown Organization [facility] Address [address] [place] [address] Phone [phone] Care Team Providers Care Cardiovascular Radiologic Technologist Name Role Phone Damir De La Cruz MD Primary Care Provider +1- [phone] Reason for Visit * Reason Onset Date Comments [facility]: Maintenance 02/18/2023 Encounter Details Date Type Department Care Team Description 02/18/2023 Telephone [facility], [facility] [address] [place] [address] [facility], Nurse [facility] [address] [place] [address] [facility]: Maintenance Allergies Active Allergy Reactions Severity Noted Date Comments Prednisone Psych complications 10/23/2008 intolerance documented as of this encounter (statuses as of 02/18/2023) Medications Medication Sig Dispensed Refills Start Date [...] 0 Active guaifenesin ER (MUCINEX) 600 MG [id number]:FINANCE ADMIN D, severe (HCC),Chronic cough Take 1 Tab [...] long-term current use of insulin ([facility]) Take 1 Tablet by mouth in [...] as of this encounter (statuses as of 02/18/2023) Active Problems Problem Noted Date HTN, goal below 140/90 12/21/2021 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 11/18/2021 POLST (Physician Orders for Life-Sustain ing Treatment) 06/17/2021 Controlled substance agreement signed COPD, severe 11/12/2011 DM type 2 causing renal disease 11/05/19 10 Chronic rhinitis 08/22/2002 Tobacco use disorder 12/07/2000 Reflux esophagitis ADJ DISORDER W/DEPRES MOOD Neuropathy documented as of this encounter (statuses as of 02/18/2023) Resolved Problems Problem Noted Date Resolved Date [...] as of this encounter (statuses as of 02/18/2023) Immunizations Name Administration Dates Next Due COVID-19 [...] Telephone Encounter - Selena Varma RN - 02/18/2023 10:17 AM EDT Phone call from patient. She wanted to get a message to her nurse She DID NOT sign up for hospice. Will talk with her about it more on Wed at home visit Message routed Gloria Varma RN, BSN [facility] Intake Triage Coordinator [phone] documented in this encounter Plan of Treatment Upcoming Encounters Date Type Specialty Care Team Description 02/24/2023 Home Visit [facility] Brinda Gómez RN [address] [place] [address] 03/19/2023 Office Visit Family Medicine Ana Luisa Mcclain PA-C [address] [place] [facility] [place] [place] [address] Health Maintenance Due Date Last Done Comments [...] exists LUNG CANCER SCREENING - USE SMARTSET 63416 Completed 05/17/2019, 06/30/2017, 09/12/2015 GARDASIL-HPV IMMUNIZATION SERIES [...] Documents on File Type Date Recorded Patient Repairer Evaporator Expl anation POLST 02/04/2023 [place] DERS FOR LIFE-SUSTAINING TREATMENT POLST 06/17/2021 [place] DERS FOR LIFE-SUSTAINING TREATMENT Care Teams Cardiovascular Radiologic Technologist Relationship Specialty Start Date End Date Damir De La Cruz MD [address] [place] [address] PCP - General 04/04/00 documented as of this encounter
--- OUTSIDE RECORDS SUMMARY | 2023-06-13 13:09 | External Medical Summary | Summary of Care ---
Author Name Unknown Organization [facility] Address [address] [place] [address] Phone [phone] Care Team Providers Care Industrial Spraypainter Name Role Phone Damir De La Cruz MD Primary Care Provider +1- [phone] Reason for Visit * Reason Comments [facility]: Maintenance Encounter Details Date Type Department Care Team Description 02/24/2023 Home Visit [facility], [facility] [address] [facility] [place] [address] Brinda Gómez, RN [address] [place] [address] Allergies Active Allergy Reactions Severity Noted Date Comments Prednisone Psych complications 10/23/2008 intolerance documented as of this encounter (statuses as of 02/24/2023) Medications Medication Sig Dispensed Refills Start Date [...] 0 Active guaifenesin ER (MUCINEX) 600 MG [id number]:[place] PD, severe (HCC),Chronic cough Take 1 Tab [...] without long-term current use of insulin ([facility]) Take 1 Tablet by [...] as of this encounter (statuses as of 02/24/2023) Active Problems Problem Noted Date HTN, goal below 140/90 12/21/2021 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 11/18/2021 POLST (Physician Orders for Life-Sustain ing Treatment) 06/17/2021 Controlled substance agreement signed COPD, severe 11/12/2011 DM type 2 causing renal disease 11/05/19 Chronic rhinitis 08/22/2002 Tobacco use disorder 12/07/2000 Reflux esophagitis ADJ DISORDER W/DEPRES MOOD Neuropathy documented as of this encounter (statuses as of 02/24/2023) Resolved Problems Problem Noted Date Resolved Date [...] as of this encounter (statuses as of 02/24/2023) Immunizations Name Administration Dates Next Due COVID-19 [...] Sign Reading Time Taken Comments Blood Pressure 118/70 02/24/2023 2:07 PM EDT Pulse 96 02/24/2023 2:07 PM EDT Temperature 36.5 C (97.7 F) 02/24/2023 2 :07 PM EDT Respiratory Rate 22 02/24/2023 2:07 PM EDT Oxygen Saturation 100% 02/24/2023 2:0 7 PM EDT o2 on at 4 l/min via nc Inhaled Oxygen Concentration - - Weight - - Height - - Body Mass Index - - documented in this encounter Progress Notes * Brinda Gómez, RN - 02/24/2023 2:00 PM EDT [facility] Equipment Service Lead Visit Date: 02/24/2023 Time: 2:00 PM Name: Iris Goodwin : 1955 Current Concerns: Pt seen for return RNCM visit States her breathing has been under control lately with use of Morphine - she is using at most twice at day - tries not to use it unless all other interventions fail Does have constipation with use of Morphine Uses stool softener once a day and then uses Bisacodyl tabs prn - has only used it once, 2 tabs andit was effective She will increase stool softener to two caps a day if she feels she needs it . Continues to have wax build up in right ear - completed course of debrox Unable to get out any wax with use of small bulb syringe Schedule for return home visit tomorrow to try again with elephant ear flush Physical Exam: BP 118/70 | Pulse 96 | Temp 36.5 C (97.7 F) | Resp 22 | LMP 07/22/2004 | SpO2 100% Comment: o2 on at 4 l/min via nc Pain 0 Physical Exam Constitutional: General: She is not in acute distress. Cardiovascular: Rate and Rhythm: Normal rate and regular rhythm. Pulses: Normal pulses. Heart sounds: Normal heart sounds. Pulmonary: Effort: Pulmonary effort is normal. Comments: Lungs diminished throughout Neurological: Mental Status: She is alert. Problems/Symptoms: Review of Systems Constitutional: Negative. HENT: Positive for hearing loss (right ear with cerumen build up). Eyes: Negative. Respiratory: Positive for cough and shortness of breath (at baseline). Gastrointestinal: Negative. Genitourinary: Negative. Musculoskeletal: Positive for arthralgias. Medication Reconciliation: (See medication list) Does patient take medications as ordered: Yes Patient Well Being: PHQ2/9: No questionnaires available. No change in [facility]-10 Completed this Visit: No. Routine visit and No falls since last visit Advanced Care Planning: No documentation, ACP on file. Patient's Goals of Care: Maintain current functional [...] paid cg program - gets reimbursement from [facility] - cg three times a week (8hrs each week) Uses Trillogy NIV overnight Morphine sulfate prn dyspnea Palliative to be involved Home Interventions Provided: Home Intervention: Other; Eval Reinforced current Plan of Care, including self-management and medication regimen Patient's 'Red Flags': Can't catch your breath Increased fatigue/weakness Chest feels tight Patient Needs to Remember: Call [facility] at with any new or worsening [...] Yes Scheduled to follow up with patient tomorrow. Brinda Gómez RN 02/24/2023 2:00 PM documented in this encounter Plan of Treatment Upcoming Encounters Date Type Specialty Care Team Description 02/25/2023 Home Visit [facility] Brinda Gómez RN [address] [place] [address] 03/15/2023 Home Visit [facility] Brinda Gómez RN [address] [place] [address] 03/19/2023 Office Visit Family Medicine Ana Luisa Mcclain PA-C [address] [place] [address] Health Maintenance Due Date Last Done Comments [...] COPD 02/17/2024 02/16/2023 Lipid Panel 01/13/2026 01/13/2021, 060 10/2019, 02/09/2018, Additional history exists DXA Scan 05/28/2027 05/28/2020, 060 08/2013, 09/12/2010, Additional history exists Pap Smear Discontinued 08/12/2016, 11/02, 11/09/2011, Additional history exists LUNG CANCER SCREENING - USE SMARTSET [id number] Completed 05/17/2019, 06/30/2017, 09/12/2015 GARDASIL-HPV IMMUNIZATION SERIES [...] Documents on File Type Date Recorded Patient Sign Maker Expl anation POLST 02/04/2023 [place] OR DERS FOR LIFE-SUSTAINING TREATMENT POLST 06/17/2021 [place] OR DERS FOR LIFE-SUSTAINING TREATMENT Care Teams Industrial Spraypainter Relationship Specialty Start Date End Date Damir De La Cruz MD [address] [place] [address] PCP - General 04/04/00 documented as of this encounter"
--- OUTSIDE RECORDS SUMMARY | 2023-06-13 13:09 | External Medical Summary | Summary of Care ---
Author Name Unknown Organization [facility] Address [address] [place] [address] Phone [phone] Care Team Providers Care Bearing Grinder Name Role Phone Damir De La Cruz MD Primary Care Provider +1- [phone] Reason for Visit * Reason Onset Date Comments Advice 02/11/2023 Encounter Details Date Type Department Care Team Description 02/11/2023 Telephone [facility], [facility] [address] [place] [address] Emilee Herndon, RN [address] [facility] [place] [address] Advice Allergies Active Allergy Reactions Severity Noted [...] Tab 5 06/14/2013 Active oxygen GAS Use 6 L/min(Oxygen) as directed. Pt titrating oxygen between 6-7 liters continuously 0 Active guaifenesin ER (MUCINEX) 600 MG [id number]:C OPD, severe (HCC),Chronic cough Take 1 Tab [...] Oral Tablet (Ultram)Indicatio ns:Controlled substance agreement signed TAKE 1 TABLET BY [...] admission 02/03-02/08/23. Background: Patient discharged home from [facility] on 02/08/23. While inpatient, she was [...] [place]. 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 States she asked at the hospital, but referrals were not made. X acp note completed. POLST scanned into chart. [facility] Recommendation: [place] [facility] [place]. Request for hospice orders Meryl [facility] for any Rx documented in this encounter Plan of Treatment Upcoming Encounters Date Type Specialty Care Team Description 02/16/2023 Office Visit Family Medicine Damir De La Cruz MD [address] [place] [address] 02/22/2023 [facility]medicine [facility] [id number] Yelitza Orozco, [facility] Therapy Counselor [address] [place] [address] [place] [address] 03/19/2023 Office Visit Family Medicine Ana Luisa Mcclain PA-C [address] [place] [address] Health Maintenance Due Date Last Done Comments DISCUSS TOBACCO CESSATION (REFER TO SMARTSET #0228) 1955 Alpha-1 Antitrypsin 10/16/1973 Hepatitis C Screening [...] COPD 01/26/2024 01/25/2023 Lipid Panel 01/13/2026 01/13/2021, 06/0 10/2019, 02/09/2018, Additional history exists DXA Scan 05/28/2027 05/28/2020, 06/0 08/2013, 09/12/2010, Additional history exists Pap Smear Discontinued 08/12/2016, 11/02, 11/09/2011, Additional history exists LUNG CANCER SCREENING - USE SMARTSET 61664 Completed 05/17/2019, 06/30/2017, 09/12/2015 GARDASIL-HPV IMMUNIZATION SERIES [...] Documents on File Type Date Recorded Patient School Office Assistant Expl anation POLST 06/17/2021 [place] OR [facility] FOR LIFE-SUSTAINING TREATMENT Care Teams Bearing Grinder Relationship Specialty Start Date End Date Damir De La Cruz MD [address] [place] [address] PCP - General 04/04/00 documented as of this encounter
--- OUTSIDE RECORDS SUMMARY | 2023-06-13 13:10 | External Medical Summary | Summary of Care ---
Author Name Unknown Organization [facility] Address [address] [place] [address] Phone [phone] Care Team Providers Care Entry Analyst Name Role Phone Damir De La Cruz MD Primary Care Provider +1- [phone] Reason for Visit * Reason Comments eRx-Medication Refill Encounter Details Date Type Department Care Team Description 02/02/2023 Refill [facility] [address] [place] [address] Ana Luisa Mcclain PA-C [address] [place] [address] Allergies Active Allergy Reactions Severity Noted Date Comments Prednisone Psych complications 10/23/2008 intolerance documented as of this encounter (statuses as of 02/03/2023) Medications Medication Sig Dispensed Refills Start Date End Date Status LORATADINE 10 MG PO TABS One pill by mouth once a day as needed for allergies 30 Tab 5 2 Active ASPIRIN 81 MG PO CHEWIndications:p atient states at least 3 to 4 times a week Take by mouth. Indications: patient states at least 3 to 4 times a week 100 Tab 5 3 Active oxygen GAS Use 6 L/min(Oxygen) as directed. Pt titrating oxygen between 6-7 liters continuously 0 Active guaifenesin ER (MUCINEX) 600 MG [id number]:C OPD, severe (HCC),Chronic cough Take 1 Tab by mouth 2 times a day. 60 Tab 5 9 Active B Complex Tablet Take 1 Tab by mouth daily. 0 Active Zinc Sulfate 220 (50 Zn) MG Oral Capsule Take 1 Capsule by mouth in the morning. 0 Active Multi-Day Oral Tablet Take 1 Tab by mouth daily. 0 Active Spiriva HandiHaler 18 MCG Inhalation Capsule (tiotropium bromide)Indicatio ns:COPD, severity to be determined (HCC) Inhale 1 Capsule (2 Puffs) in the morning by mouth. For inhaler only, do not swallow.. 90 Capsule 3 2 Active Additional Information Patient taking differently:1 Capsule Inhalation Daily(AM), For inhaler only, do not swallow.,Indications: COPD, Reported on 01/12/2023 Azithromycin 250 MG Oral Tablet (Zithromax Z-[place])Indications :COPD, severe (HCC) Take two tablets by mouth on first day, then 1 tablet daily until gone 6 Tablet 0 2 Active Additional Information Patient taking differently: 250 mg, Takes 3 times a week, Indications: bronchitis, Reported on 01/12/2023 Formoterol Fumarate 20 MCG/2ML Inhalation Nebulization SolutionIndicatio ns:COPD Inhale by mouth 2 times a day . 0 Active Atorvastatin Calcium 10 MG Oral Tablet (Lipitor)Indicati ons:Dyslipidemia, goal LDL below 100 TAKE ONE TABLET BY MOUTH EVERY NIGHT AT BEDTIME 90 Tablet 3 3 Active Lisinopril 5 MG Oral Tablet (Prinivil)Indicat ions:Type 2 diabetes mellitus with diabetic nephropathy, without long-term current use of insulin ([facility]) Take 1 Tablet by mouth in the morning. 90 Tablet 3 3 Active traZODone HCl 50 MG Oral Tablet (Desyrel) Take 1.5 Tablets by mouth at bedtime. May increase to 2 tab as tolerated or needed for insomnia 180 Tablet 0 3 Active traMADol HCl 50 MG Oral Tablet (Ultram)Indicatio ns:Controlled substance agreement signed Take 1 Tablet by mouth every 6 hours as needed for Pain, Moderate. 120 Tablet 0 3 Active Acetaminophen 325 MG Oral Tablet Take 1 Tablet by mouth every 6 hours as needed. 0 Active Budesonide 0.5 MG/2ML Inhalation Suspension (Pulmicort) inhale one vial (0.5 mg) via nebulizer twice daily 360 mL 11 3 Active Arformoterol Tartrate 15 MCG/2ML Inhalation Nebulization Solution (Brovana) inhale one vial (2 mL) via nebulizer twice a day 120 mL 11 3 Active Ipratropium-Albut yuli 0.5-2.5 (3) MG/3ML Inhalation [...] FOR SHORTNESS OF BREATH 18 g 0 3 Active Albuterol Sulfate HFA 108 (90 Base) MCG/ACT Inhalation Aerosol Solution Inhale 2 Puffs by mouth every 4 hours as needed for Shortness of Breath. 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 11/18/2021 POLST (Physician Orders for Life-Sustain ing Treatment) 06/17/2021 Controlled substance agreement signed COPD, severe 11/12/2011 DM type 2 causing renal disease 11/05/19 10 Chronic rhinitis 08/22/2002 Tobacco use disorder 12/07/2000 Reflux esophagitis ADJ DISORDER W/DEPRES MOOD Neuropathy documented as of this encounter (statuses as of 02/03/2023) Resolved Problems Problem Noted Date Resolved Date [...] as of this encounter (statuses as of 02/03/2023) Immunizations Name Administration Dates Next Due COVID-19 [...] encounter Miscellaneous Notes * Telephone Encounter - Arabella More [facility] - 02/03/2023 1:27 PM EDTSigned Prescriptions: Disp Refills Albuterol Sulfate HFA 108 (90 Base) MCG/AC*18 g 0 Sig: INHALE 2 PUFFS BY MOUTH EVERY 4 HOURS NEEDED FOR SHORTNESS OF BREATHAuthorizing Provider: Serene MCCLAIN User: ARABELLA MORE documented in this encounter Plan of Treatment Upcoming Encounters Date Type Specialty Care Team Description 02/03/2023 Home Visit [facility] Emilee Herndon RN [address] [place] [address] 02/22/2023 Telemedicine [facility] Brandie Garvey CRNP [address] [facility] [place] [address] Yelitza Orozco, [facility] [address] [place] [address] 03/19/2023 Office Visit Family Medicine Ana Luisa Mcclani, PA-C [address] [place] [address] Health Maintenance Due Date Last Done Comments DISCUSS TOBACCO CESSATION (REFER TO SMARTSET #2413) 1955 Alpha-1 Antitrypsin 10/16/1973 Hepatitis C Screening [...] exists LUNG CANCER SCREENING - USE SMARTSET 27326 Completed 05/17/2019, 06/30/2017, 09/12/2015 GARDASIL-HPV IMMUNIZATION SERIES [...] Documents on File Type Date Recorded Patient Quality Assurance Supervisor Trim Expl anation POLST 06/17/2021 [place] OR [facility] FOR LIFE-SUSTAINING TREATMENT Care Teams Entry Analyst Relationship Specialty Start Date End Date Damir De La Cruz MD [address] [place] [address] PCP - General 04/04/00 documented as of this encounter
--- OUTSIDE RECORDS SUMMARY | 2023-06-13 13:10 | External Medical Summary | Summary of Care ---
Author Name Unknown Organization [facility] Address [address] [place] [address] Phone [phone] Care Team Providers Care Rail Car Welder Name Role Phone Damir De La Cruz MD Primary Care Provider +1- [phone] Reason for Visit * Reason Onset Date Comments Left Message 01/15/2023 Encounter Details Date Type Department Care Team Description 01/15/2023 Computer Systems Software Engineer Telephone [facility] [address] [place] [address] Caroline Bermudez, TASIA [address] [place] [address] Left Message Allergies Active Allergy Reactions Severity Noted Date Comments Prednisone Psych complications 10/23/2008 intolerance documented as of this encounter (statuses as of 01/15/2023) Medications Medication Sig Dispensed Refills Start Date [...] Tab 5 06/14/2013 Active oxygen GAS Use 2 L/min(Oxygen) as directed at bedtime. 0 Active guaifenesin ER (MUCINEX) 600 MG [id number]:PLANIMETER OPERATOR D, severe (HCC),Chronic cough Take 1 Tab by mouth 2 times a day. 60 Tab 5 05/03/2019 Active B Complex Tablet Take 1 Tab by mouth daily. 0 Active Esomeprazole Magnesium 20 MG CPDRIndications:sto mach Take 1 Capsule by mouth daily before breakfast. 0 Active Alendronate Sodium 70 MG Oral Tablet (Fosamax)Indication s:Osteoporosis without current pathological fracture, unspecified osteoporosis type Take 1 Tab by mouth once a week. with 8 oz. water 30 minutes before first meal of the day. Remain upright for 30 min after taking tablet 5 Tab 11 06/13/2020 Active Additional Information Patient not taking.Reported on 01/12/2023 Zinc Sulfate 220 (50 Zn) MG Oral [...] a week, Indications: bronchitis, Reported on 01/12/2023 Budesonide 0.5 MG/2ML Inhalation Suspension (Pulmicort)Indicati ons:COPD 0.5 mg in the morning and 0.5 mg before bedtime. 0 11/18/2021 Active Formoterol Fumarate 20 MCG/2ML Inhalation Nebulization SolutionIndications :COPD Inhale by mouth 2 times a day . 0 Active Albuterol Sulfate (2.5 MG/3ML) 0.083% Inhalation Nebulization Solution (Proventil)Indicati ons:COPD Inhale via nebulizer 1 Vial every 4 hours as needed for Wheezing. 360 mL 3 04/07/2022 Active traMADol HCl 50 MG Oral Tablet (Ultram)Indications :Controlled substance agreement signed Take 1 Tablet (50 mg) by mouth every 6 hours as needed for Pain, Moderate. 90 Tablet 0 06/02/2022 Active Atorvastatin Calcium 10 MG Oral Tablet (Lipitor)Indication s:Dyslipidemia, goal LDL below 100 TAKE ONE TABLET BY MOUTH EVERY NIGHT AT BEDTIME 90 Tablet 3 07/21/2022 Active Lisinopril 5 MG Oral Tablet (Prinivil)Indicatio ns:Type 2 diabetes mellitus with diabetic nephropathy, without long-term current use of insulin (HCC) Take 1 Tablet by mouth in the morning. 90 Tablet 3 07/21/2022 Active Meloxicam 15 MG Oral Tablet Take 1 Tablet by mouth in the morning. 90 Tablet 0 10/07/2022 Active Additional Information Patient not taking.Reported on 01/12/2023 traZODone HCl 50 MG Oral Tablet (Desyrel) Take 1.5 Tablets by mouth at bedtime. May increase to 2 tab as tolerated or needed for insomnia 180 Tablet 0 11/25/2022 Active traMADol HCl 50 MG Oral Tablet (Ultram)Indications :Controlled substance agreement signed Take 1 Tablet by mouth every 6 hours as needed for Pain, Moderate. 120 Tablet 0 01/04/2023 Active Albuterol Sulfate HFA 108 (90 Base) MCG/ACT Inhalation Aerosol Solution Inhale 2 Puffs by mouth every 4 hours as needed for Shortness of Breath. 18 g 0 01/04/2023 Active Acetaminophen 325 MG Oral Tablet (Tylenol) Take 1 Tablet by mouth every 6 hours as needed. 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 11/18/2021 POLST (Physician Orders for Life-Sustain ing Treatment) 06/17/2021 Controlled substance agreement signed COPD, severe 11/12/2011 DM type 2 causing renal disease 11/05/19 10 Chronic rhinitis 08/22/2002 Tobacco use disorder 12/07/2000 Reflux esophagitis ADJ DISORDER W/DEPRES MOOD Neuropathy documented as of this encounter (statuses as of 01/15/2023) Resolved Problems Problem Noted Date Resolved Date [...] as of this encounter (statuses as of 01/15/2023) Immunizations Name Administration Dates Next Due COVID-19 [...] encounter Miscellaneous Notes * Telephone Encounter - Caroline Bermudez RN - 01/15/2023 9:38 AM EDT 1. Follow-up Post Discharge 2. Attempted Phone Call First Attempt 3. Call Outcome Left Voicemail/Message 4. Plan To attempt another outreach Caroline Bermudez RN documented in this encounter Plan of Treatment Upcoming Encounters Date Type Specialty Care Team Description 01/20/2023 Office Visit Family Medicine Ana Luisa Mcclain PA-C [address] [place] [address] 02/15/2023 Office Visit Family Medicine Ana Luisa Mcclain PA-C [address] [place] [address] Health Maintenance Due Date Last Done Comments DISCUSS TOBACCO CESSATION (REFER TO SMARTSET #9634) 1955 Alpha-1 Antitrypsin 10/16/1973 Hepatitis C Screening 10/16/1973 O2 ASSESSMENT COMPLETED IN PAST YEAR FOR COPD 10/16/1973 Cologuard 10/16/2000 Colonoscopy 10/16/2000 Sigmoidoscopy 10/16/2000 [...] 06/15/2023 06/15/2022, 01/02, 12/07/2019, Additional history exists Lipid Panel 01/13/2026 01/13/2021, 10/2019, 02/09/2018, Additional history exists DXA Scan 05/28/2027 05/28/2020, 060 08/2013, 09/12/2010, Additional history exists Pap Smear Discontinued 08/12/2016, 11/02, 11/09/2011, Additional history exists LUNG CANCER SCREENING - USE SMARTSET [id number] Completed 05/17/2019, 06/30/2017, 09/12/2015 GARDASIL-HPV IMMUNIZATION SERIES [...] Documents on File Type Date Recorded Patient Wrapping Clerk Expl anation POLST 06/17/2021 [place] OR [facility] FOR LIFE-SUSTAINING TREATMENT Care Teams Rail Car Welder Relationship Specialty Start Date End Date Damir De La Cruz MD [address] [place] [address] PCP - General 04/04/00 documented as of this encounter
--- OUTSIDE RECORDS SUMMARY | 2023-06-13 13:10 | External Medical Summary | Summary of Care ---
Author Name Unknown Organization [facility] Address [address] [place] [address] Phone [phone] Care Team Providers Care Brick Shader Name Role Phone Damir De La Cruz MD Primary Care Provider +1- [phone] Reason for Visit * Reason Onset Date Comments [facility]: Engagement 01/20/2023 Encounter Details Date Type Department Care Team Description 01/20/2023 Telephone [facility], [facility] [address] [place] [address] [facility], Nurse [facility] [address] [place] [address] [facility]: Engagement Allergies Active Allergy Reactions Severity Noted Date Comments Prednisone Psych complications 10/23/2008 intolerance documented as of this encounter (statuses as of 01/20/2023) Medications Medication Sig Dispensed Refills Start Date [...] 0 Active guaifenesin ER (MUCINEX) 600 MG [id number]:BLENDING OPERATOR D, severe (HCC),Chronic cough Take 1 Tab by mouth 2 times a day. 60 Tab 5 05/03/2019 Active B Complex Tablet Take 1 Tab by mouth daily. 0 Active Esomeprazole Magnesium 20 MG CPDRIndications:sto mach Take 1 Capsule by mouth daily before breakfast. 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 11/18/2021 POLST (Physician Orders for Life-Sustain ing Treatment) 06/17/2021 Controlled substance agreement signed COPD, severe 11/12/2011 DM type 2 causing renal disease 11/05/19 Chronic rhinitis 08/22/2002 Tobacco use disorder 12/07/2000 Reflux esophagitis ADJ DISORDER W/DEPRES MOOD Neuropathy documented as of this encounter (statuses as of 01/20/2023) Resolved Problems Problem Noted Date Resolved Date [...] as of this encounter (statuses as of 01/20/2023) Immunizations Name Administration Dates Next Due COVID-19 [...] encounter Miscellaneous Notes * Telephone Encounter - Lanie Broussard LPN - 01/20/2023 11:33 AM EDT [facility] Engagement Attempt Engagement: Engagement Attempt 1: Unable to contact Engagement Attempt 2: No data was found Home Information: No data was found Advance Care Planning (ACP): No data was found Has Living Will or Advance Directive: No data was found Anticipated Sub-Program: Focused Care Management (3-9 months) Confirmation of Sub-Program Type (by care automobile washer steam): No data was found Handoff Information: Current care team notified via: Verbal communication, Epic communication Current telemonitoring equipment: No data was found Danielle Herndon RNCM: 01/25 @ 1230pm Telemed Yoandy/Ernesto: 02/02 @ 930am/1000am documented in this encounter Plan of Treatment Upcoming Encounters Date Type Specialty Care Team Description 01/25/2023 Home Visit [facility] Emilee Herndon RN [address] [place] [address] 02/02/2023 Telemedicine [facility] Sarahi Pitt, JACLYN [address] [facility] [place] [address] Yelitza Orozco, [facility] [address] [place] [id number] 03/19/2023 Office Visit Family Medicine Ana Luisa Mcclain PA-C [address] [place], [place] [id number] Health Maintenance Due Date Last Done Comments DISCUSS TOBACCO CESSATION (REFER TO SMARTSET #8347) 1955 Alpha-1 Antitrypsin 10/16/1973 Hepatitis C Screening [...] Additional history exists Lipid Panel 01/13/2026 01/13/2021, 06/0 10/2019, 02/09/2018, Additional history exists DXA Scan 05/28/2027 05/28/2020, 06/0 08/2013, 09/12/2010, Additional history exists Pap Smear Discontinued 08/12/2016, 11/02, 11/09/2011, Additional history exists LUNG CANCER SCREENING - USE SMARTSET 31996 Completed 05/17/2019, 06/30/2017, 09/12/2015 GARDASIL-HPV IMMUNIZATION SERIES [...] Documents on File Type Date Recorded Patient Retread Technician Expl anation POLST 06/17/2021 [place] OR [facility] FOR LIFE-SUSTAINING TREATMENT Care Teams Brick Shader Relationship Specialty Start Date End Date Damir De La Cruz MD [address] [place] [address] PCP - General 04/04/00 documented as of this encounter
--- OUTSIDE RECORDS SUMMARY | 2023-06-13 13:10 | External Medical Summary | Summary of Care ---
Author Name Unknown Organization [facility] Address [address] [place] [address] Phone [phone] Care Team Providers Care Photolithographic Stripper Name Role Phone Damir De La Cruz MD Primary Care Provider +1- [phone] Reason for Visit * Reason Onset Date Comments Hospital Follow-Up 01/19/2023 Encounter Details Date Type Department Care Team Description 01/19/2023 Telephone [facility] [address] [place] [address] Damir De La Cruz MD [address] [place] [address] Hospital Follow-Up Allergies Active Allergy Reactions Severity Noted Date Comments Prednisone Psych complications 10/23/2008 intolerance documented as of this encounter (statuses as of 01/19/2023) Medications Medication Sig Dispensed Refills Start Date [...] 0 Active guaifenesin ER (MUCINEX) 600 MG [id number]:CHILD LIFE THERAPIST D, severe (HCC),Chronic cough Take 1 Tab [...] (tiotropium bromide)Indications :COPD, severity to be determined ([facility]) Inhale 1 Capsule (2 Puffs) in the morning by mouth. For inhaler only, do not swallow.. 90 Capsule 3 07/30/2021 Active Additional Information Patient taking differently:1 Capsule Inhalation Daily(AM), For inhaler only, do not swallow.,Indications: COPD, Reported on 01/12/2023 Azithromycin 250 MG Oral Tablet (Zithromax Z-[place])Indications:C OPD, severe ([facility]) Take two tablets by mouth on [...] without long-term current use of insulin ([facility]) Take 1 Tablet by mouth in [...] as of this encounter (statuses as of 01/19/2023) Active Problems Problem Noted Date HTN, goal below 140/90 12/21/2021 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 11/18/2021 POLST (Physician Orders for Life-Sustain ing Treatment) 06/17/2021 Controlled substance agreement signed COPD, severe 11/12/2011 DM type 2 causing renal disease 11/05/19 Chronic rhinitis 08/22/2002 Tobacco use disorder 12/07/2000 Reflux esophagitis ADJ DISORDER W/DEPRES MOOD Neuropathy documented as of this encounter (statuses as of 01/19/2023) Resolved Problems Problem Noted Date Resolved Date [...] as of this encounter (statuses as of 01/19/2023) Immunizations Name Administration Dates Next Due COVID-19 [...] * Telephone Encounter - ANGELA [place] - 01/19/2023 3:49 PM EDT LMOM to reschedule. If nothing available with Dr. De La Cruz, you may schedule with any provider. 01/19/2023 * Telephone Encounter - ANGELA Mas - 01/19/2023 1:51 PM EDT No Appointments Available Patient declined appointments?: Yes, patient is not able to come to the appointment scheduled for 01/20/23 at 10:20 AM and would like to reschedule. What Visit Type is needed? Hospital Discharge If Acute Visit Type is needed, were surrounding clinics offered to patient (Yes/No)? N/A Was patient offered appointments with other available providers (Yes/No)? N/A See Call Details? (Yes or No): No documented in this encounter Plan of Treatment Upcoming Encounters Date Type Specialty Care Team Description 01/20/2023 Office Visit Family Medicine Ana Luisa Mcclain PA-C [address] [place] [address] 03/19/2023 Office Visit Family Medicine Ana Luisa Mcclain PA-C [address] [place] [address] Health Maintenance Due Date Last Done Comments DISCUSS TOBACCO CESSATION (REFER TO SMARTSET #0275) 1955 Alpha-1 Antitrypsin 10/16/1973 Hepatitis C Screening [...] Additional history exists Lipid Panel 01/13/2026 01/13/2021, 060 10/2019, 02/09/2018, Additional history exists DXA Scan 05/28/2027 05/28/2020, 060 08/2013, 09/12/2010, Additional history exists Pap Smear Discontinued 08/12/2016, 11/02, 11/09/2011, Additional history exists LUNG CANCER SCREENING - USE SMARTSET [id number] Completed 05/17/2019, 06/30/2017, 09/12/2015 GARDASIL-HPV IMMUNIZATION SERIES [...] Documents on File Type Date Recorded Patient Sat Act Instructor Expl anation POLST 06/17/2021 [place] OR [facility] FOR LIFE-SUSTAINING TREATMENT Care Teams Photolithographic Stripper Relationship Specialty Start Date End Date Damir De La Cruz MD [address] [place], [place] [id number] PCP - General 04/04/00 documented as of this encounter
--- OUTSIDE RECORDS SUMMARY | 2023-06-13 13:10 | External Medical Summary | Summary of Care ---
Author Name Unknown Organization [facility] Address [address] [place] [address] Phone [phone] Care Team Providers Care Rebar Fabricator Name Role Phone Damir De La Cruz MD Primary Care Provider +1- [phone] Reason for Visit * Reason Onset Date Comments Health Maintenance 02/01/2023 Encounter Details Date Type Department Care Team Description 02/01/2023 Telephone [facility] [address] [place] [address] Damir De La Cruz MD [address] [place] [address] Health Maintenance Allergies Active Allergy Reactions Severity Noted Date Comments Prednisone Psych complications 10/23/2008 intolerance documented as of this encounter (statuses as of 02/01/2023) Medications Medication Sig Dispensed Refills Start Date [...] 0 Active guaifenesin ER (MUCINEX) 600 MG [id number]:RECORDS ANALYSIS MANAGER D, severe (HCC),Chronic cough Take 1 Tab [...] 01/04/2023 Active Acetaminophen 325 MG Oral Tablet Take [...] Capsule by mouth every afternoon. 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 11/18/2021 POLST (Physician Orders for Life-Sustain ing Treatment) 06/17/2021 Controlled substance agreement signed COPD, severe 11/12/2011 DM type 2 causing renal disease 11/05/19 10 Chronic rhinitis 08/22/2002 Tobacco use disorder 12/07/2000 Reflux esophagitis ADJ DISORDER W/DEPRES MOOD Neuropathy documented as of this encounter (statuses as of 02/01/2023) Resolved Problems Problem Noted Date Resolved Date [...] as of this encounter (statuses as of 02/01/2023) Immunizations Name Administration Dates Next Due COVID-19 [...] encounter Miscellaneous Notes * Telephone Encounter - Manuela Scott LPN - 02/01/2023 8:51 AM EDT Care Gaps Comprehensive Care Outreach Last Office/Telemedicine Visit: 11/20/2021 (in office), 06/12/2020 (telemedicine) Next Office Visit: 03/19/2023 Hemoglobin AIC Results: Lab Results Component Value Date/Time HEMOGLOBIN A1C - [facility] 5.4 06/15/2022 01:46 PM HEMOGLOBIN A1C - [facility] 5.6 01/13/2021 10:07 AM HEMOGLOBIN A1C - [facility] 5.6 12/07/2019 11:40 AM HEMOGLOBIN A1C - [facility] 5.7 (H) 05/08/2019 08:14 AM HEMOGLOBIN A1C - [facility] 5.9 (H) 05/12/2018 09:19 AM Reviewed Health Maintenance below: Health Maintenance Topic Date Due DISCUSS TOBACCO CESSATION (REFER TO SMARTSET #4342) Never done Alpha-1 Antitrypsin Never done Hepatitis C Screening Never done Zoster Vaccines (1 of 2) Never done Pneumococcal Vaccine: 65+ Years (2 - PCV) 10/23/2009 Colorectal Cancer Screening 07/23/2016 DIABETES-FOOT EXAM 05/03/2020 Depression Screening, Annual for Pts 12 and Over 05/03/2020 COVID-19 Vaccine (3 - Pfizer series) 11/28/2020 Mammogram 06/11/2021 DIABETES-EYE EXAM 09/05/2021 DTaP,Tdap,and Td Vaccines (2 - Td or Tdap) 11/15/2022 HbA1c 12/14/2022 Influenza Vaccine (FLU shot) (1) 03/05/2023 Albumin/Creatinine Ratio 06/15/2023 GFR 06/15/2023 Colon Foot Mamm Eye Labs 1c Care Gap Outreach Action Taken: Left message documented in this encounter Plan of Treatment Upcoming Encounters Date Type Specialty Care Team Description 02/03/2023 Home Visit [facility] Emilee Herndon RN [address] [place] [address] 02/22/2023 Telemedicine [facility] Garvey [facility] [address] [facility] [place] [address] Yelitza Orozco, Community [facility] Vmware Administrator [address] [place] [address] [place] [address] 03/19/2023 Office Visit Family Medicine Ana Luisa Mcclain PATigreC [address] [place], [place] [id number] Health Maintenance Due Date Last Done Comments DISCUSS TOBACCO CESSATION (REFER TO SMARTSET #0946) 1955 Alpha-1 Antitrypsin 10/16/1973 Hepatitis C Screening [...] COPD 01/26/2024 01/25/2023 Lipid Panel 01/13/2026 01/13/2021, 060 10/2019, 02/09/2018, Additional history exists DXA Scan 05/28/2027 05/28/2020, 08/2013, 09/12/2010, Additional history exists Pap Smear Discontinued 08/12/2016, 11/02, 11/09/2011, Additional history exists LUNG CANCER SCREENING - USE SMARTSET [id number] Completed 05/17/2019, 06/30/2017, 09/12/2015 GARDASIL-HPV IMMUNIZATION SERIES [...] Documents on File Type Date Recorded Patient Certified Ophthalmic Surgical Assistant Expl anation POLST 06/17/2021 [place] [facility] FOR LIFE-SUSTAINING TREATMENT Care Teams Rebar Fabricator Relationship Specialty Start Date End Date Damir De La Cruz MD [address] [place] [address] PCP - General 04/04/00 documented as of this encounter
--- OUTSIDE RECORDS SUMMARY | 2023-06-13 13:10 | External Medical Summary | Summary of Care ---
Author Name Unknown Organization [facility] Address [address] [place] [address] Phone [phone] Care Team Providers Care Circular Sawyer Helper Name Role Phone Damir De La Cruz MD Primary Care Provider +1- [phone] Reason for Visit * Reason Onset Date Comments [facility]: Maintenance 02/03/2023 Encounter Details Date Type Department Care Team Description 02/03/2023 Telephone [facility], [facility] [address] [place] [address] Emilee Herndon, RN [address] [place] [address] [facility]: Maintenance Allergies Active Allergy [...] 0 Active guaifenesin ER (MUCINEX) 600 MG [id number]:ART MUSEUM AIDE D, severe (HCC),Chronic cough Take 1 Tab [...] (tiotropium bromide)Indications :COPD, severity to be determined ([facility]) Inhale 1 Capsule (2 Puffs) in the [...] long-term current use of insulin ([facility]) Take 1 Tablet by mouth [...] Pain, Moderate. 120 Tablet 0 01/04/2023 Active Acetaminophen 325 MG Oral [...] OF BREATH 18 g 0 02/03/2023 Active documented as of this encounter (statuses [...] Miscellaneous Notes * Telephone Encounter - Emilee Herdnon RN - 02/03/2023 4:21 PM EDT Arrived at patient's home for scheduled appointment. No answer at door. Called cell phone. Left VM.Neighbor came out to car and reported that patient went to the hospital yesterday. Confirmed in [facility] EMR that patient was admitted 02/03 with respiratory failure, copd exacerbation. Per notes, pt would like to transition to hospice. Case management is working on setting up. Plan is for patient to go home on hospice in a couple of days. Care team-RILEY Dela Cruz -added to shared list. documented in this encounter Plan of Treatment Upcoming Encounters Date Type Specialty Care Team Description 02/22/2023 Telemedicine [facility] Brandie Garvey CRNP [address] [place] [address] Yelitza Orozco, Community Health Fare Register Repairer [address] [place] [address] [place] [address] 03/19/2023 Office Visit Family Medicine Ana Luisa Mcclain PATigreC [address] [place] [address] Health Maintenance Due Date Last Done Comments DISCUSS TOBACCO CESSATION (REFER TO SMARTSET #0004) 1955 Alpha-1 Antitrypsin 10/16/1973 Hepatitis C Screening [...] exists LUNG CANCER SCREENING - USE SMARTSET 12911 Completed 05/17/2019, 06/30/2017, 09/12/2015 GARDASIL-HPV IMMUNIZATION SERIES [...] Documents on File Type Date Recorded Patient Pole Cutter Expl anation POLST 06/17/2021 [place] OR [facility] FOR LIFE-SUSTAINING TREATMENT Care Teams Circular Sawyer Helper Relationship Specialty Start Date End Date Damir De La Cruz MD [address] [place] [address] PCP - General 04/04/00 documented as of this encounter
--- OUTSIDE RECORDS SUMMARY | 2023-06-13 13:10 | External Medical Summary | Summary of Care ---
Author Name Unknown Organization [facility] Address [address] [place] [address] Phone [phone] Care Team Providers Care Technical Implementation Lead Name Role Phone Damir De La Cruz MD Primary Care Provider +1- [phone] Reason for Visit * Reason Onset Date Comments Left Message 01/19/2023 Encounter Details Date Type Department Care Team Description 01/19/2023 V/Stol Landing Signal Officer Telephone [facility] [address] [place] [address] Caroline Bermudez, TASIA [address] [place] [address] Left Message Allergies Active Allergy [...] 0 Active guaifenesin ER (MUCINEX) 600 MG [id number]:LOAD TESTER D, severe (HCC),Chronic cough Take 1 Tab [...] (tiotropium bromide)Indications :COPD, severity to be determined ([facility]) Inhale 1 Capsule (2 Puffs) in the morning by mouth. For inhaler only, do not swallow.. 90 Capsule 3 07/30/2021 Active Additional Information Patient taking differently:1 Capsule Inhalation Daily(AM), For inhaler only, do not swallow.,Indications: COPD, Reported on 01/12/2023 Azithromycin 250 MG Oral Tablet (Zithromax Z-Miller)Indications:C OPD, severe ([facility]) Take two tablets by mouth on first [...] Telephone Encounter - Caroline Bermudez RN - 01/19/2023 1:27 PM EDT 1. Follow-up Routine 2. Attempted Phone Call First Attempt 3. Call Outcome Left Voicemail/Message 4. Plan To attempt another outreach Caroline Bermudez RN documented in this encounter Plan of Treatment Upcoming Encounters Date Type Specialty Care Team Description 01/20/2023 Office Visit Family Medicine Ana Luisa Mcclain PA-C [address] [place] [facility] [place] [address] 03/19/2023 Office Visit Family Medicine Ana Luisa Mcclain PA-C [address] [facility] [address] Health Maintenance Due Date Last Done Comments DISCUSS TOBACCO CESSATION (REFER TO SMARTSET #1060) 1955 Alpha-1 Antitrypsin 10/16/1973 Hepatitis C Screening [...] exists LUNG CANCER SCREENING - USE SMARTSET [id number] Completed 05/17/2019, 06/30/2017, 09/12/2015 GARDASIL-HPV IMMUNIZATION SERIES [...] Documents on File Type Date Recorded Patient Folder Machine Operator Expl anation POLST 06/17/2021 [place] OR [facility] FOR LIFE-SUSTAINING TREATMENT Care Teams Technical Implementation Lead Relationship Specialty Start Date End Date Damir De La Cruz MD [address] [place] [address] PCP - General 04/04/00 documented as of this encounter
--- OUTSIDE RECORDS SUMMARY | 2023-06-13 13:10 | External Medical Summary | Summary of Care ---
Author Name Unknown Organization [facility] Address [address] [place] [address] Phone [phone] Care Team Providers Care Breeder Hen Service Technician Name Role Phone Damir De La Cruz MD Primary Care Provider +1- [phone] Reason for Visit * Reason Onset Date Comments Appointment 02/08/2023 Encounter Details Date Type Department Care Team Description 02/08/2023 Telephone [facility], [facility] [address] [place] [address] Stacey Hdz, [facility] Human Resources Temp Appointment Allergies Active Allergy Reactions Severity Noted Date Comments Prednisone Psych complications 10/23/2008 intolerance documented as of this encounter (statuses as of 02/08/2023) Medications Medication Sig Dispensed Refills Start Date [...] 0 Active guaifenesin ER (MUCINEX) 600 MG [id number]:CURRICULUM SPECIALIST D, severe (HCC),Chronic cough Take 1 [...] long-term current use of insulin ([facility]) Take 1 Tablet by mouth in [...] as of this encounter (statuses as of 02/08/2023) Active Problems Problem Noted Date HTN, goal below 140/90 12/21/2021 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 11/18/2021 POLST (Physician Orders for Life-Sustain ing Treatment) 06/17/2021 Controlled substance agreement signed COPD, severe 11/12/2011 DM type 2 causing renal disease 11/05/19 10 Chronic rhinitis 08/22/2002 Tobacco use disorder 12/07/2000 Reflux esophagitis ADJ DISORDER W/DEPRES MOOD Neuropathy documented as of this encounter (statuses as of 02/08/2023) Resolved Problems Problem Noted Date Resolved Date [...] as of this encounter (statuses as of 02/08/2023) Immunizations Name Administration Dates Next Due COVID-19 [...] encounter Miscellaneous Notes * Telephone Encounter - Estephania [facility] Human Resources Temp - 02/08/2023 10:09 AM EDT Inbound call from patient she states she is in the hospital should be discharging today and wanted to be set up with Nurse Bessie Herndon RN Stacey Hdz, ANGELA documented in this encounter Plan of Treatment Upcoming Encounters Date Type Specialty Care Team Description 02/11/2023 Home Visit [facility] Emilee Herndon RN [address] [place] [address] 02/22/2023 Telemedicine [facility] Brandie Garvey CRNP [address] [facility] [place] [address] Yelitza Orozco, Community Health Human Resources Temp [address] [place] [address] [place] [address] 03/19/2023 Office Visit Family Medicine Ana Luisa Mcclain, PATigreC [address] [place] [address] Health Maintenance Due Date Last Done Comments DISCUSS TOBACCO CESSATION (REFER TO SMARTSET #8185) 1955 Alpha-1 Antitrypsin 10/16/1973 Hepatitis C Screening [...] exists LUNG CANCER SCREENING - USE SMARTSET [id number] Completed 05/17/2019, 06/30/2017, 09/12/2015 GARDASIL-HPV IMMUNIZATION SERIES [...] Documents on File Type Date Recorded Patient Property Field Adjuster Expl anation POLST 06/17/2021 [place] [facility] Care Teams Breeder Hen Service Technician Relationship Specialty Start Date End Date Damir De La Cruz MD [address] [place], [place] [id number] PCP - General 04/04/00 documented as of this encounter
--- OUTSIDE RECORDS SUMMARY | 2023-06-13 13:10 | External Medical Summary | Summary of Care ---
Author Name Unknown Organization [facility] Address [address] [place] [address] Phone [phone] Care Team Providers Care Livestock Producer Name Role Phone Damir De La Cruz MD Primary Care Provider +1- [phone] Reason for Visit * Reason Onset Date Comments [facility]: Engagement 01/20/2023 Encounter Details Date Type Department Care Team Description 01/20/2023 Telephone [facility], [facility] [address] [place] [address] [facility], Nurse [facility] [address] [place] [address] [facility]: Engagement Allergies Active Allergy [...] 0 Active guaifenesin ER (MUCINEX) 600 MG [id number]:PICKLER HELPER D, severe (HCC),Chronic cough Take 1 [...] long-term current use of insulin ([facility]) Take 1 Tablet by mouth in the [...] Encounter - Lanie Broussard LPN - 01/20/2023 11:55 AM EDT [facility] Engagement Attempt Engagement: Engagement Attempt 1: Unable to contact Engagement Attempt 2: Contacted - Agreed to home-based services Scheduled appointment information: MERLY Herndon: 01/25 @ 1230pm; geovani Garvey/Ernesto @ 3pm/330pm Home Information: Has pets Advance Care Planning (ACP): No data was found Has Living Will or Advance Directive: Yes - have available for first visit Anticipated Sub-Program: Focused Care Management (3-9 months) Confirmation of Sub-Program Type (by care care team assistant): No data was found Handoff Information: Current care team notified via: Verbal communication, Epic communication Current telemonitoring equipment: No data was found *Patient prefers afternoon visits. Street address in [place] documented in this encounter Plan of Treatment Upcoming Encounters Date Type Specialty Care Team Description 01/25/2023 Home Visit [facility] Emilee Herndon, RN [address] [facility] [place] [address] 02/04/2023 Telemedicine [facility] Brandie Garvey CRNP [address] [facility] [place] [address] Yelitza Orozco, Community Health Sammying Machine Operator [address] [place] [address] [place] [phone] 03/19/2023 Office Visit Family Medicine Ana Luisa Mcclain PATigreC [address] [place], [place] [address] Health Maintenance Due Date Last Done Comments DISCUSS TOBACCO CESSATION (REFER TO SMARTSET #6504) 1955 Alpha-1 Antitrypsin 10/16/1973 Hepatitis C Screening [...] exists LUNG CANCER SCREENING - USE SMARTSET 17210 Completed 05/17/2019, 06/30/2017, 09/12/2015 GARDASIL-HPV IMMUNIZATION SERIES [...] Documents on File Type Date Recorded Patient Top Bottom Attaching Machine Operator Expl anation POLST 06/17/2021 [place] OR [facility] FOR LIFE-SUSTAINING TREATMENT Care Teams Livestock Producer Relationship Specialty Start Date End Date Damir De La Cruz MD [address] [place] [address] PCP - General 04/04/00 documented as of this encounter
--- OUTSIDE RECORDS SUMMARY | 2023-06-13 13:10 | External Medical Summary | Summary of Care ---
Author Name Unknown Organization [facility] Address [address] [place] [address] Phone [phone] Care Team Providers Care Filament Welder Name Role Phone Damir De La Cruz MD Primary Care Provider +1- [phone] Reason for Visit * Reason Onset Date Comments Follow Up 01/20/2023 Encounter Details Date Type Department Care Team Description 01/20/2023 Xerox Machine Operator Telephone [facility] [address] [place] [address] Caroline Bermudez, TASIA [address] [place] [address] Follow Up Allergies Active Allergy Reactions Severity Noted Date [...] 0 Active guaifenesin ER (MUCINEX) 600 MG [id number]:FOOT PIECE ASSEMBLER D, severe (HCC),Chronic cough Take 1 Tab [...] bromide)Indications :COPD, severity to be determined ([facility]) Inhale 1 Capsule (2 Puffs) in the morning by mouth. For inhaler only, do not swallow.. 90 Capsule 3 07/30/2021 Active Additional Information Patient taking differently:1 Capsule Inhalation Daily(AM), For inhaler only, do not swallow.,Indications: COPD, Reported on 01/12/2023 Azithromycin 250 MG Oral Tablet (Zithromax Z-Miller)Indications:C OPD, severe ([facility]) Take two tablets by mouth on first [...] without long-term current use of insulin ([facility]) Take 1 Tablet by mouth in [...] Telephone Encounter - Caroline Bermudez RN - 01/20/2023 11:33 AM EDT S: Spoke with patient, says she is little more SOB today, says she thinks it is the humidity O: Patient coughing a little more also, with clear white sputum Using O2 at 6.5 liters most of the time, O2 saturations have been between 97-100 Patient says her appetite is improved, denies bowel/bladder complaints No new complaints of pain Using Trilogy at night when she is sleeping Says she feels tired this morning, she is not sure why Patient independent with ambulation Patient expressing interest in [facility] program, referral called into intake A: Phone follow up P : COPD: Pt instructed to: -Call with increased SOB, wheezing, chest tightness, increased cough, increased sputum with change in color or consistency and fever. -Wash hands often -Drink plenty of fluids -Use inhalers as directed, do not stop or skip doses -Avoid stress -Rest when tired or SOB -Avoid triggers -Clean inhalers once a week Advised to call office for any change in health status or questions concerning care Encouraged patient to call director case with any questions/concerns at [phone]. Office Hours: Wed- 8-8 pm, Wednesday 8-5 pm, [facility] clinic hours: Saturdays 8-5, Sundays 8-5 Caroline Bermudez RN [facility] [address] [facility] [address] documented in this encounter Plan of Treatment Upcoming Encounters Date Type Specialty Care Team Description 01/25/2023 Home Visit [facility] Emilee Herndon RN [address] [facility] [place] [address] 02/02/2023 Telemedicine [facility] Sarahi Pitt, CCNP [address] [facility] [place] [address] Yelitza Orozco, Community Health Paper Pattern Inspector [address] [place] [address] [place] [address] 03/19/2023 Office Visit Family Medicine Ana Luisa Mcclain PATigreC [address] [facility] [id number] Health Maintenance Due Date Last Done Comments [...] exists LUNG CANCER SCREENING - USE SMARTSET [id number] Completed 05/17/2019, 06/30/2017, 09/12/2015 GARDASIL-HPV IMMUNIZATION SERIES [...] Documents on File Type Date Recorded Patient Engineering Faculty Expl anation POLST 06/17/2021 [facility] FOR LIFE-SUSTAINING TREATMENT Care Teams Filament Welder Relationship Specialty Start Date End Date Damir De La Cruz MD [address] [place], [place] [phone] PCP - General 04/04/00 documented as of this encounter
--- OUTSIDE RECORDS SUMMARY | 2023-06-13 13:10 | External Medical Summary | Summary of Care ---
Author Name Unknown Organization [facility] Address [address] [place] [address] Phone [phone] Care Team Providers Care Wool Classer Name Role Phone Yvon Gordon MD Primary Care Provider +1- [phone] Reason for Visit * Reason Comments eRx-Medication Refill Encounter Details Date Type Department Care Team Description 02/02/2023 Refill [facility] [address] [place] [address] Yvon Gordon MD [address] [place] [address] Controlled substance agreement signed Allergies Active Allergy Reactions Severity Noted Date Comments Prednisone Psych complications 10/23/2008 intolerance documented as of this encounter (statuses as of 02/05/2023) Medications Medication Sig Dispensed Refills Start Date [...] 0 Active guaifenesin ER (MUCINEX) 600 MG [id number]:C OPD, severe (HCC),Chronic cough Take 1 Tab [...] for insomnia 180 Tablet 0 3 Active Acetaminophen 325 MG [...] NEEDED FOR MODERATE PAIN 120 Tablet 0 3 Active Albuterol Sulfate HFA 108 (90 Base) MCG/ACT Inhalation Aerosol Solution INHALE 2 PUFFS BY MOUTH EVERY 4 HOURS NEEDED FOR SHORTNESS OF BREATH 18 g 0 3 Active traMADol HCl 50 MG Oral Tablet (Ultram)Indicatio ns:Controlled substance agreement signed Take 1 Tablet by mouth every 6 hours as needed for Pain, Moderate. 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 11/18/2021 POLST (Physician Orders for Life-Sustain ing Treatment) 06/17/2021 Controlled substance agreement signed COPD, severe 11/12/2011 DM type 2 causing renal disease 11/05/19 10 Chronic rhinitis 08/22/2002 Tobacco use disorder 12/07/2000 Reflux esophagitis ADJ DISORDER W/DEPRES MOOD Neuropathy documented as of this encounter (statuses as of 02/05/2023) Resolved Problems Problem Noted Date Resolved Date [...] as of this encounter (statuses as of 02/05/2023) Immunizations Name Administration Dates Next Due COVID-19 [...] Telephone Encounter - Yvon Gordon MD - 02/05/2023 4:22 PM EDTSigned Prescriptions: Disp Refills traMADol HCl 50 MG Oral Tablet (Ultram) 120 Ta*0 Sig: TAKE 1 TABLET BY MOUTH EVERY 6 HOURS NEEDED FOR MODERATE PAINAuthorizing Provider: YVON GORDON------ * Telephone Encounter - Patti Gray, [facility] - 02/05/2023 11:25 AM EDT Pending Prescriptions: Disp Refills traMADol HCl 50 MG Oral Tablet 120 Ta*0 Sig: TAKE 1 TABLET BY MOUTH EVERY 6 HOURS NEEDED FOR MODERATE PAIN * Telephone Encounter - Betty Cummings Rell, [facility] - 02/03/2023 4:17 PM EDT I have reviewed the patients controlled substance dispensing history in the Prescription Drug Monitoring Program in compliance with the [facility] regulations before prescribing a controlled substance. PDMP checked on 02/03/2023. Pending Prescriptions: Disp Refills traMADol HCl 50 MG Oral Tablet (Ultram) [*120 Ta*0 Sig: TAKE 1 TABLET BY MOUTH EVERY 6 HOURS NEEDED FOR MODERATE PAIN Last Visit: 11/20/2021 (in office), 06/12/2020 (telemedicine) Next Visit: 03/19/2023 Date medication was last filled: 01/11/23 Date medication is due for refill: 02/09/23 Pharmacy: [facility] [id number] [id number] [address] Is this request for a [...] RESULTS REFLEX TO CONFIRMATORY TESTING. Cutoff Concentration Please approve if appropriate. Thank You Isidro GloriaD Clinical Pharmacist [facility] ([facility]) (formerly Telepharmacy) [phone] / [phone] 02/03/2023, 4:17 PM documented in this encounter Plan of Treatment Upcoming Encounters Date Type Specialty Care Team Description 02/22/2023 Telemedicine [facility] Brandie Garvey CRNP [address] [facility] [place] [address] Yelitza Orozco, Community Health Supervisor Cell Room [address] [place] [address] [place] [phone] 03/19/2023 Office Visit Family Medicine Ana Luisa Mcclain PA-C [address], [place] [id number] Health Maintenance Due Date Last Done Comments DISCUSS TOBACCO CESSATION (REFER TO SMARTSET #6155) 1955 Alpha-1 Antitrypsin 10/16/1973 Hepatitis C Screening [...] exists LUNG CANCER SCREENING - USE SMARTSET 17816 Completed 05/17/2019, 06/30/2017, 09/12/2015 GARDASIL-HPV IMMUNIZATION SERIES [...] Documents on File Type Date Recorded Patient Winding Lathe Operator Expl anation POLST 06/17/2021 [place] OR [facility] FOR LIFE-SUSTAINING TREATMENT Care Teams Wool Classer Relationship Specialty Start Date End Date Yvon Gordon MD [address] [place] [address] PCP - General 04/04/00 documented as of this encounter
--- OUTSIDE RECORDS SUMMARY | 2023-06-13 13:10 | External Medical Summary | Summary of Care ---
Author Name Unknown Organization [facility] Address [address] [place] [address] Phone [phone] Care Team Providers Care Analyzer Sales Name Role Phone Damir De La Cruz MD Primary Care Provider +1- [phone] Reason for Visit * Reason Comments [facility]: Enrollment Encounter Details Date Type Department Care Team Description 01/25/2023 Home Visit [facility], [facility] [address] [place] [address] Brinda Gómez, RN [address] [facility] [address] Allergies Active Allergy Reactions Severity Noted Date Comments Prednisone Psych complications 10/23/2008 intolerance documented as of this encounter (statuses as of 01/27/2023) Medications Medication Sig Dispensed Refills Start Date [...] 0 Active guaifenesin ER (MUCINEX) 600 MG [id number]:C OPD, severe (HCC),Chronic cough Take 1 Tab [...] Capsule by mouth every afternoon. 0 Active Esomeprazole Magnesium 20 MG CPDRIndications:s tomach Take 1 Capsule by mouth daily before breakfast. 0 3 Discontinue d(Medicatio n List Clean Up) Budesonide 0.5 MG/2ML Inhalation Suspension (Pulmicort)Indica tions:COPD 0.5 mg in the morning and 0.5 mg before bedtime. 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 11/18/2021 POLST (Physician Orders for Life-Sustain ing Treatment) 06/17/2021 Controlled substance agreement signed COPD, severe 11/12/2011 DM type 2 causing renal disease 11/05/19 10 Chronic rhinitis 08/22/2002 Tobacco use disorder 12/07/2000 Reflux esophagitis ADJ DISORDER W/DEPRES MOOD Neuropathy documented as of this encounter (statuses as of 01/27/2023) Resolved Problems Problem Noted Date Resolved Date [...] as of this encounter (statuses as of 01/27/2023) Immunizations Name Administration Dates Next Due COVID-19 [...] Sign Reading Time Taken Comments Blood Pressure 112/64 01/25/2023 4:08 PM EDT Pulse 95 01/25/2023 4:08 PM EDT Temperature 36.4 C (97.6 F) 01/25/2023 4 :08 PM EDT Respiratory Rate 20 01/25/2023 4:08 PM EDT Oxygen Saturation 99% 01/25/2023 4:0 8 PM EDT o2 on at 6.5 l/min via nc Inhaled Oxygen Concentration - - Weight - - Height - - Body Mass Index - - documented in this encounter Progress Notes * Brinda Gómez RN - 01/25/2023 3:51 PM EDT [facility] Ear SpecialistRooming House Inspector Visit Date: 01/25/2023 Time: 3:51 PM Name: Iris Goodwin : 1955 Current Concerns: Pt seen for enrollment to [facility] Admitted to [facility] 01/10/23 to 01/14/23 Dx: Acute on chronic hypoxic hypercarbic resp failyre, COPD exacerbation Pt reports she has been feeling better since home Her shortness of breath is a daily struggle for her She reports she wear Trilogy NIV all night and usually in the AM her chest is tight for awhile, as if her muscles have been worked all night She states she is usually more SOB as the day goes on She voiced that she had spoke with hospital providers about hospice and that will be her plan for the future. She states that she knows her prognosis is poor and she is just looking to be as comfortable as possible. 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 Pt sees Dr. Thomas pulmonary with [facility] She reports she doesn't like using the DuoNeb because it makes her heart race She is going to call his office and let them know that she does not like to use it Pt currently wearing oxygen around 6.5 l/min today She reports she titrates it between 6 and 7 l/min depending on how she is feeling Physical Exam: BP 112/64 | Pulse 95 | Temp 36.4 C (97.6 F) | Resp 20 | LMP 07/22/2004 | SpO2 99% Comment: o2 on at 6.5 l/min via nc Pain 0 Physical Exam Constitutional: Appearance: She is ill-appearing. Cardiovascular: Rate and Rhythm: Normal rate and regular rhythm. Pulses: Normal pulses. Pulmonary: Comments: Breath sounds diminished throughout Abdominal: General: Bowel sounds are normal. Palpations: Abdomen is soft. Musculoskeletal: Cervical back: Normal range of motion. Skin: General: Skin is warm and dry. Neurological: Mental Status: She is alert and oriented to person, place, and time. Problems/Symptoms: Review of Systems Constitutional: Negative. HENT: Positive for rhinorrhea (clear, chronic). Eyes: Negative. Respiratory: Positive for cough (chronic, clear mucus) and shortness of breath (at baseline). Cardiovascular: Negative. Gastrointestinal: Negative. Endocrine: Negative. Genitourinary: Negative. Musculoskeletal: Positive for arthralgias. Neurological: Negative. Hematological: Negative. Psychiatric/Behavioral: Negative. Medication Reconciliation: (See medication list) Does patient take medications as ordered: Yes Patient Well Being: PHQ2/9: No questionnaires available. Pt lives alone in first floor apartment Has a dog Grandson stays on the weekends Son lives upstairs Ex-DIL is involved and helps pt as able, they are very close and she is main contact listed Pt denies falls [facility] Completed this Visit: Yes. [facility]: Reason Completed: Enrollment [facility] Interventions: Fall education provided, reviewed/provided Fall brochure Advanced Care Planning: POLST. Patient's Goals of Care: 1. Maintain current functional abilities 2. Be comfortable Reinforcement/Education: COPD: Pt instructed to: [...] medication regimen. Timing., Dosing. and Purspose. Treatment/Plan: Continued meds as prescribed/reviewed Dr. thomas is pulmonary thru [facility] Rescue inhaler of albuterol prn Neb txs as prescribed - be sure to clean neb supplies Oxygen at 6-7 l/min via nc continuously In paid cg program - gets reimbursement from [facility] - cg three times a week (8hrs each week) Uses Trillogy NIV overnight Home Interventions Provided: Home Intervention: Other; Evaluation Reinforced current Plan of Care, including self-management and medication regimen Patient's 'Red Flags': 1. Can't catch your breath 2. Increased fatigue/weakness 3. Chest feels tight Patient Needs to Remember: Call [facility] at with any new or worsening [...] Scheduled to follow up with patient in one week with RNCM, 2 weeks with provider. Brinda Gómez RN 01/25/2023 3:51 PM documented in this encounter Plan of Treatment Upcoming Encounters Date Type Specialty Care Team Description 02/03/2023 Home Visit [facility] Emilee Herndon RN [address] [place] [address] 02/22/2023 Telemedicine [facility] Brandie Garvey CRNP [address] [facility] [place] [address] Yelitza Orozco, Community Health Ladies Locker Room Attendant [address] [place] [address] [place] [address] 03/19/2023 Office Visit Family Medicine Ana Luisa Mcclain PA-C [address] [place] [address] Health Maintenance Due Date Last Done Comments DISCUSS TOBACCO CESSATION (REFER TO SMARTSET #0581) 1955 Alpha-1 Antitrypsin 10/16/1973 Hepatitis C Screening [...] exists LUNG CANCER SCREENING - USE SMARTSET [id number] Completed 05/17/2019, 06/30/2017, 09/12/2015 GARDASIL-HPV IMMUNIZATION SERIES [...] Documents on File Type Date Recorded Patient Doll Eye Setter Expl anation POLST 06/17/2021 [place] OR [facility] FOR LIFE-SUSTAINING TREATMENT Care Teams Analyzer Sales Relationship Specialty Start Date End Date Damir De La Cruz MD [address] [place] [address] PCP - General 04/04/00 documented as of this encounter"
--- OUTSIDE RECORDS SUMMARY | 2023-06-13 13:10 | External Medical Summary | Summary of Care ---
Author Name Unknown Organization [facility] Address [address] [place] [address] Phone [phone] Care Team Providers Care Bander Hand Name Role Phone Damir De La Cruz MD Primary Care Provider +1- [phone] Encounter Details Date Type Department Care Team Description 01/15/2023 [facility]ile [facility] Hel[facility]Emissions [facility] [address] [place] [address] Caroline Bermudez, TASIA [address] [place] [address] COPD, severe (HCC)* Allergies Active Allergy Reactions [...] 0 Active guaifenesin ER (MUCINEX) 600 MG [id number]:[place] PD, severe (HCC),Chronic cough Take 1 Tab by mouth 2 times a day. 60 Tab 5 05/03/2019 Active B Complex Tablet Take 1 Tab by mouth daily. 0 Active Esomeprazole Magnesium 20 MG CPDRIndications:st omach Take 1 Capsule by mouth daily before [...] on 01/12/2023 Budesonide 0.5 MG/2ML Inhalation Suspension (Pulmicort)Indicat ions:COPD 0.5 mg in the morning and 0.5 mg before bedtime. 0 11/18/2021 Active Formoterol Fumarate 20 MCG/2ML Inhalation Nebulization SolutionIndication [...] every 6 hours as needed. 0 Active Alendronate Sodium 70 MG Oral Tablet (Fosamax)Indicatio ns:Osteoporosis without current pathological fracture, unspecified osteoporosis type Take 1 Tab by mouth once a week. with 8 oz. water 30 minutes before first meal of the day. Remain upright for 30 min after taking tablet 5 Tab 11 06/13/2020 3 Discontinue d(Patient preference/ discontinua tion) Albuterol Sulfate (2.5 MG/3ML) 0.083% Inhalation Nebulization Solution (Proventil)Indicat ions:COPD Inhale via nebulizer 1 Vial every 4 hours as needed for Wheezing. 360 mL 3 04/07/2022 3 Discontinue d(Patient preference/ discontinua tion) traMADol HCl 50 MG Oral Tablet (Ultram)Indication s:Controlled substance agreement signed Take 1 Tablet (50 mg) by mouth every 6 hours as needed for Pain, Moderate. 90 Tablet 0 06/02/2022 3 Discontinue d(Medicatio n List Clean Up) Meloxicam 15 MG Oral Tablet Take 1 Tablet by mouth in the morning. 90 Tablet 0 10/07/2022 3 Discontinue d(Patient preference/ discontinua tion) documented as of this encounter (statuses as [...] as of this encounter Progress Notes * Caroline Bermudez RN - 01/15/2023 12:52 PM EDT Tile Layer Helper Progress Note: Date: 01/15/23 Assgned Patient Tier: 2 Connected with patient via phone. Verified patient name/. Advised patient that call is being recorded for quality and training purposes. Assessment: Pt. noted the following: Patient says her SOB is "much better", continues to have a productive cough with white sputum Patient using O2 at 6 liters /, uses trilogy at night, O2 sats have been above 90 Patient has a fair appetite, drinking boost/ensure as able. Has some constipation, encouraged fluids, stool softener, denies bladder complaints Has some chronic pain to her knees in the am, controlled on oral medications Does not check her blood sugars, last A1C was 5.4 Patient lives alone in an apartment Independent with ambulation, is able to dress herself, manages her own medications Has a caregiver thru [employer] that comes 3 days a week to help with ADL's, cleaning, gets groceries Talked to patient about current health monitor, she is refusing at this time Offered [facility] referral, patient is okay with referral, but does not want to be contacted until Wednesday Will plan to place referral on 01/18/23 Talked to patient briefly about Hospice, she says she is not "there" yet, but will be researching agencies for future Has supportive family, son lives upstairs & checks on her often Patient has completed POLST form in [employer] Did you receive an alert for an annual wellness visit? No Is this call for a hospital, custodial or rehab facility discharge to home? Yes [facility] on 01/10/23 with COPD exacerbation, had palliative consult, discharged home on 01/14/23 Medication Reconciliation: Medication Reconciliation completed: yes Review of Current goals: Discussed the following patient-centered CM goals with the patient during this discussion: -COPD: Achieve successful management of COPD -Status: On Track breathing improved, on chronic O2 & Trilogy at night. -Diabetes: Patient will successfully manage their diabetes -Status: On Track diabetes currently controlled, last A1C was 5.4. -SAFETY: Prevent falls or injuries -Status: On Track patient independent with ambulation & ADL's, no report of falls. COPD Patient: YES Pulse Ox: 92%%, Oxygen: 6 litersLPM via N/C, Cough: PRODUCTIVE and COLOR: white, Breathing: Breathing at Baseline CHF Patient: NO CM Plan: Reviewed 3 Red Flags with patient. Advised to call CM with any of the following: Red Flag 1: increased SOB, cough, Red Flag 2: fever, chills or Red Flag 3: O2 sat below 88, increased confusion, weakness Remote Patient Monitoring: At this time, RPM not offered/considered for patient due to patient refusing Current Health, already has O2 saturation monitor. Plan for Future Contacts: Plan to follow up within 1 week to check progress on the following goals/needs as above. Planned contacts from the following parties will occur this week: PCP office visit as additional contacts per workflow. Advancement/Closure Plan: Keep patient at current Tier with reassessment per workflow. Patient provided CM contact information and encouraged to call with any changes in condition. SNP Member? No PCP Notified of enrollment in CM/HM program: Yes Is Provider in agreement with POC? Yes Caroline Bermudez RN Outpatient Case Management documented in this encounter Plan of Treatment Upcoming Encounters Date Type Specialty Care Team Description 01/20/2023 Office Visit Family Medicine Ana Luisa Mcclain PA-C [address] [place] [address] 02/15/2023 Office Visit Family Ana Luisa Rios PA-C [address] [place] [address] Health Maintenance Due Date Last Done Comments DISCUSS TOBACCO CESSATION (REFER TO SMARTSET #2294) 1955 Alpha-1 Antitrypsin 10/16/1973 Hepatitis C Screening [...] exists LUNG CANCER SCREENING - USE SMARTSET [id number] Completed 05/17/2019, 06/30/2017, 09/12/2015 GARDASIL-HPV IMMUNIZATION SERIES [...] Documents on File Type Date Recorded Patient Straw Hat Machine Operator Expl anation POLST 06/17/2021 [place] OR [facility] FOR LIFE-SUSTAINING TREATMENT Care Teams Bander Hand Relationship Specialty Start Date End Date Damir De La Cruz MD [address], [place] [id number] PCP - General 04/04/00 documented as of this encounter
--- OUTSIDE RECORDS SUMMARY | 2023-06-13 13:10 | External Medical Summary | Summary of Care ---
Author Name Unknown Organization [facility] Address [address] [place] [address] Phone [phone] Care Team Providers Care Electrical Systems Drafter Name Role Phone Damir De La Cruz MD Primary Care Provider +1- [phone] Reason for Visit * Reason Onset Date Comments Hospital Follow-Up 01/19/2023 Encounter Details Date Type Department Care Team Description 01/19/2023 Telephone [facility] [address] [place] [address] Damir De La Cruz MD [address] [place] [address] Hospital Follow-Up Allergies Active Allergy Reactions Severity Noted Date Comments Prednisone Psych complications 10/23/2008 intolerance documented as of this encounter (statuses as of 01/21/2023) Medications Medication Sig Dispensed Refills Start Date [...] 0 Active guaifenesin ER (MUCINEX) 600 MG [id number]:PERFORMANCE IMPROVEMENT COORDINATOR D, severe (HCC),Chronic cough Take 1 [...] as of this encounter (statuses as of 01/21/2023) Active Problems Problem Noted Date HTN, goal below 140/90 12/21/2021 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 11/18/2021 POLST (Physician Orders for Life-Sustain ing Treatment) 06/17/2021 Controlled substance agreement signed COPD, severe 11/12/2011 DM type 2 causing renal disease 11/05/19 Chronic rhinitis 08/22/2002 Tobacco use disorder 12/07/2000 Reflux esophagitis ADJ DISORDER W/DEPRES MOOD Neuropathy documented as of this encounter (statuses as of 01/21/2023) Resolved Problems Problem Noted Date Resolved Date [...] as of this encounter (statuses as of 01/21/2023) Immunizations Name Administration Dates Next Due COVID-19 [...] * Telephone Encounter - ANGELA Greer - 01/21/2023 1:46 PM EDT LMOM and sent [email or web address] message to reschedule. 01/21/2023 * Telephone Encounter - ANGELA Greer - [...] Emilee Herndon RN [address] [facility] [place] [address] 02/04/2023 Telemedicine [facility] Brandie Garvey CRNP [address] [facility] [place] [address] Yelitza Orozco [facility] [address] [place] [address] 03/19/2023 Office Visit Family Medicine Ana Luisa Mcclain PA-C [address] [place] [address] Health Maintenance Due Date Last Done Comments DISCUSS TOBACCO CESSATION (REFER TO SMARTSET #4055) 1955 Alpha-1 Antitrypsin 10/16/1973 Hepatitis C Screening [...] exists LUNG CANCER SCREENING - USE SMARTSET 80954 Completed 05/17/2019, 06/30/2017, 09/12/2015 GARDASIL-HPV IMMUNIZATION SERIES [...] Documents on File Type Date Recorded Patient Timekeeper Supervisor Expl anation POLST 06/17/2021 [place] OR [facility] FOR LIFE-SUSTAINING TREATMENT Care Teams Electrical Systems Drafter Relationship Specialty Start Date End Date Damir De La Cruz MD [address] [place] [address] PCP - General 04/04/00 documented as of this encounter
--- OUTSIDE RECORDS SUMMARY | 2023-06-13 13:10 | External Medical Summary | Summary of Care ---
Author Name Unknown Organization [facility] Address [address] [place] [address] Phone [phone] Care Team Providers Care Upholstery Sewer Name Role Phone Damir De La Cruz MD Primary Care Provider +1- [phone] Reason for Visit * Reason Onset Date Comments [facility]: Screening 01/20/2023 Encounter Details Date Type Department Care Team Description 01/20/2023 Telephone [facility], [facility] [address] [place] [address] [facility], Nurse [facility] [address] [place] [address] [facility]: Screening Allergies Active Allergy Reactions Severity Noted Date [...] 0 Active guaifenesin ER (MUCINEX) 600 MG [id number]:CLINICAL SERVICES DIRECTOR D, severe (HCC),Chronic cough Take 1 Tab [...] nephropathy, without long-term current use of insulin ([facility]) Take 1 Tablet by mouth [...] Encounter - Lanie Broussard LPN - 01/20/2023 11:31 AM EDT Iris Goodwin was referred as a potential candidate for enrollment for [facility]. A review of this chart was completed and: Iris meets criteria for [facility]. Jump to Episodes of Care to create Episode and document smartforms Referring care team was notified via: Verbal communication documented in this encounter Plan of Treatment Upcoming Encounters Date Type Specialty Care Team Description 01/25/2023 Home Visit [facility] Emilee Herndon, TASIA [address] [place] [address] 02/02/2023 Telemedicine [facility] Sarahi Pitt, SCIENTIFIC ARTIST [address] [place] [address] Yelitza Orozco, Community Health Data Entry Assistant [address] [place] [address] [place] [id number] 03/19/2023 Office Visit Family Medicine Ana Luisa Mcclain PA-C [address] [facility] [place] [address] Health Maintenance Due Date Last Done Comments DISCUSS TOBACCO CESSATION (REFER TO SMARTSET #[id number]) 1955 Alpha-1 Antitrypsin 10/16/1973 Hepatitis C Screening [...] exists LUNG CANCER SCREENING - USE SMARTSET 62237 Completed 05/17/2019, 06/30/2017, 09/12/2015 GARDASIL-HPV IMMUNIZATION SERIES [...] Documents on File Type Date Recorded Patient Rail Manager Expl anation POLST 06/17/2021 [place] [facility] FOR LIFE-SUSTAINING TREATMENT Care Teams Upholstery Sewer Relationship Specialty Start Date End Date Damir De La Cruz MD [address] [place] [address] PCP - General 04/04/00 documented as of this encounter
--- OUTSIDE RECORDS SUMMARY | 2023-06-13 13:10 | External Medical Summary | Summary of Care ---
Author Name Unknown Organization [facility] Address [address] [place] [address] Phone [phone] Care Team Providers Care Electrical Assembler Name Role Phone Damir De La Cruz MD Primary Care Provider +1- [phone] Reason for Visit * Reason Onset Date Comments Hospital Follow-Up 01/19/2023 Encounter Details Date Type Department Care Team Description 01/19/2023 Telephone [facility] [address] [place] [address] Damir De La Cruz MD [address] [place] [address] Hospital Follow-Up Allergies Active Allergy [...] 0 Active guaifenesin ER (MUCINEX) 600 MG [id number]:MATHEMATICAL SCIENTIST D, severe (HCC),Chronic cough Take 1 [...] :COPD, severity to be determined ([facility]) Inhale 1 Capsule (2 Puffs) in the morning by mouth. For inhaler only, do not swallow.. 90 Capsule 3 07/30/2021 Active Additional Information Patient taking differently:1 Capsule Inhalation Daily(AM), For inhaler only, do not swallow.,Indications: COPD, Reported on 01/12/2023 Azithromycin 250 MG Oral Tablet (Zithromax Z-Miller)Indications:C OPD, severe ([facility]) Take two tablets by mouth on first [...] Luisa Mcclain PA-C [address] [place] [address] 03/19/2023 Office Visit Family Medicine Ana Luisa Mcclain PA-C [address] [place] [address] Health Maintenance Due Date Last Done Comments DISCUSS TOBACCO CESSATION (REFER TO SMARTSET #8759) 1955 Alpha-1 Antitrypsin 10/16/1973 Hepatitis C Screening [...] exists LUNG CANCER SCREENING - USE SMARTSET 80314 Completed 05/17/2019, 06/30/2017, 09/12/2015 GARDASIL-HPV IMMUNIZATION SERIES [...] Documents on File Type Date Recorded Patient Seam Feller Expl anation POLST 06/17/2021 [place] [facility] FOR LIFE-SUSTAINING TREATMENT Care Teams Electrical Assembler Relationship Specialty Start Date End Date Damir De La Cruz MD [address] [place], [place] [address] PCP - General 04/04/00 documented as of this encounter
--- OUTSIDE RECORDS SUMMARY | 2023-06-13 13:10 | External Medical Summary | Summary of Care ---
Author Name Unknown Organization [facility] Address [address] [place] [address] Phone [phone] Care Team Providers Care Director Of Home Care Hospice Name Role Phone Damir De La Cruz MD Primary Care Provider +1- [phone] Reason for Visit * Reason Onset Date Comments Appointment 01/22/2023 Encounter Details Date Type Department Care Team Description 01/22/2023 Telephone [facility], [place] [address] [place] [address] Services, Scheduling [address] [place] [address] Appointment (//) Allergies Active Allergy Reactions Severity Noted Date Comments Prednisone Psych complications 10/23/2008 intolerance documented as of this encounter (statuses as of 01/22/2023) Medications Medication Sig Dispensed Refills Start Date [...] 0 Active guaifenesin ER (MUCINEX) 600 MG [id number]:HEAD GIRLS GOLF COACH D, severe (HCC),Chronic cough Take 1 Tab [...] as of this encounter (statuses as of 01/22/2023) Active Problems Problem Noted Date HTN, goal below 140/90 12/21/2021 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 11/18/2021 POLST (Physician Orders for Life-Sustain ing Treatment) 06/17/2021 Controlled substance agreement signed COPD, severe 11/12/2011 DM type 2 causing renal disease 11/05/19 10 Chronic rhinitis 08/22/2002 Tobacco use disorder 12/07/2000 Reflux esophagitis ADJ DISORDER W/DEPRES MOOD Neuropathy documented as of this encounter (statuses as of 01/22/2023) Resolved Problems Problem Noted Date Resolved Date [...] as of this encounter (statuses as of 01/22/2023) Immunizations Name Administration Dates Next Due COVID-19 [...] * Telephone Encounter - ANGELA Ortega - 01/22/2023 3:11 PM EDT Request to r/s the telemed appt and found 02/22@1130 and [place] was agreeable to the change documented in this encounter Plan of Treatment Upcoming Encounters Date Type Specialty Care Team Description 01/25/2023 Home Visit [facility] Emilee Herndon RN [address] [place] [address] 02/22/2023 Telemedicine [facility] Brandie Garvey CRNP [address] [facility] [place] [address] Yelitza Orozco, Community Health Editor Greeting Card [address] [place] [address] [place] [address] 03/19/2023 Office Visit Family Medicine Ana Luisa Mcclain PA-C [address] [place], [place] [address] Health Maintenance Due Date Last Done Comments DISCUSS TOBACCO CESSATION (REFER TO SMARTSET #1568) 1955 Alpha-1 Antitrypsin 10/16/1973 Hepatitis C Screening [...] exists LUNG CANCER SCREENING - USE SMARTSET 59226 Completed 05/17/2019, 06/30/2017, 09/12/2015 GARDASIL-HPV IMMUNIZATION SERIES [...] Documents on File Type Date Recorded Patient Cable Splicer Apprentice Expl anation POLST 06/17/2021 [place] [facility] FOR LIFE-SUSTAINING TREATMENT Care Teams Director Of Home Care Hospice Relationship Specialty Start Date End Date Damir De La Cruz MD [address] [place] [address] PCP - General 04/04/00 documented as of this encounter
--- OUTSIDE RECORDS SUMMARY | 2023-06-13 13:11 | External Medical Summary | Summary of Care ---
Author Name Unknown Organization [facility] Address [address] [place] [address] Phone [phone] Care Team Providers Care Plate Molder Name Role Phone Damir De La Cruz MD Primary Care Provider +1- [phone] Reason for Visit * Reason Comments Medication Discussion Encounter Details Date Type Department Care Team Description 01/12/2023 Pharmacy Pharmacy Call Center [address] [place] [address] Wb, Telepharmacy [facility] [address] [place] [address] Encounter for medication review* Allergies Active Allergy Reactions Severity Noted Date Comments Prednisone Psych complications 10/23/2008 intolerance documented as of this encounter (statuses as of 01/12/2023) Medications Medication Sig Dispensed Refills Start Date [...] 0 Active guaifenesin ER (MUCINEX) 600 MG [id number]:CEMENT TESTER ASSISTANT D, severe (HCC),Chronic cough Take 1 Tab by mouth 2 times a day. 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 - 01/12/2023 11:19 AM EDT Images from the original note were not included. PHARMACY MTM PROGRESS NOTE [facility] ([facility]) [address] [facility] [place] [address] Service Delivery Delivery Method: Phone Outcome: CMR Completed Health Profile Current Conditions: Cardiovascular Disease, COPD, High Blood Pressure and High Cholesterol Drug allergies & side effects: Review of patient's allergies indicates: Allergen Reactions Prednisone Psych complications intolerance Med List Home Medications Provider Acetaminophen 325 MG Oral Tablet (Tylenol) History Per Patient Associated Diagnoses: -- Albuterol Sulfate (2.5 MG/3ML) 0.083% Inhalation Nebulization Solution (Proventil) Ana Luisa A JR Mcclain Inhale via nebulizer 1 Vial every 4 hours as needed for Wheezing. Associated Diagnoses: -- Albuterol Sulfate HFA 108 (90 Base) MCG/ACT Inhalation Aerosol Solution Ana Luisa Rosalie Mcclain PA-C Inhale 2 Puffs by mouth every 4 hours as needed for Shortness of Breath. Associated Diagnoses: -- Alendronate Sodium 70 MG Oral Tablet (Fosamax) Ana Luisa Mcclain PA-C Take 1 Tab by mouth once a week. with 8 oz. water 30 minutes before first meal of the day. Remain upright for 30 min after taking tablet Patient not taking: Reported on 01/12/2023 Associated Diagnoses: Osteoporosis without current pathological fracture, unspecified osteoporosis type ASPIRIN 81 MG PO CHEW Damir De La Cruz MD Associated Diagnoses: 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) Atorvastatin Calcium 10 MG Oral Tablet (Lipitor) Damir De La Cruz MD TAKE ONE TABLET BY MOUTH EVERY NIGHT AT BEDTIME Associated Diagnoses: Dyslipidemia, goal LDL below 100 Azithromycin 250 MG Oral Tablet (Zithromax Z-Miller) Ana Luisa Mcclain PA-C Take two tablets by mouth on first day, then 1 tablet daily until gone Patient taking differently: 1 Tablet. Takes 3 times a week Associated Diagnoses: COPD, severe (HCC) B Complex Tablet History Per Patient Associated Diagnoses: -- Budesonide 0.5 MG/2ML Inhalation Suspension (Pulmicort) History Per Patient Associated Diagnoses: -- Budesonide 0.5 MG/2ML Inhalation Suspension (Pulmicort) -- 0.5 mg (2 mL) inhaled twice daily for resp. for 30 days Associated Diagnoses: -- Esomeprazole Magnesium 20 MG CPDR History Per Patient Associated Diagnoses: -- Formoterol Fumarate 20 MCG/2ML Inhalation Nebulization Solution History Per Patient Associated Diagnoses: -- guaifenesin ER (MUCINEX) 600 MG TB12 Ana Luisa Mcclain PA-C Take 1 Tab by mouth 2 times a day. Patient taking differently: Take 1 Tablet by mouth in the morning and 1 Tablet before bedtime. Associated Diagnoses: COPD, severe ([facility]), Chronic cough Lisinopril 5 MG Oral Tablet (Prinivil) Damir De La Cruz MD Take 1 Tablet by mouth in the morning. 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 Patient not taking: Reported on 01/12/2023 Associated Diagnoses: -- Multi-Day Oral Tablet History Per Patient Associated Diagnoses: -- oxygen GAS History Per Patient Associated Diagnoses: -- Spiriva HandiHaler 18 MCG Inhalation Capsule (tiotropium bromide) Damir De La Cruz MD Inhale 1 Capsule (2 Puffs) in the morning by mouth. For inhaler only, do not swallow.. Patient taking differently: Inhale 1 Capsule by mouth in the morning. For inhaler only, do not swallow.. Associated Diagnoses: COPD, severity to be determined ([facility]) traMADol HCl 50 MG Oral Tablet (Ultram) Damir De La Cruz MD Take 1 Tablet (50 mg) by mouth every 6 hours as needed for Pain, Moderate. Associated Diagnoses: Controlled substance agreement signed traMADol HCl 50 MG Oral Tablet (Ultram) Damir De L aCruz MD Take 1 Tablet by mouth every 6 hours as needed for Pain, Moderate. Associated Diagnoses: Controlled substance agreement signed traZODone HCl 50 MG Oral Tablet (Desyrel) Ana Luisa Mcclain PA-C Take 1.5 Tablets by mouth at bedtime. May increase to 2 tab as tolerated or needed for insomnia Associated Diagnoses: -- Zinc Sulfate 220 (50 Zn) MG Oral Capsule History Per Patient Associated Diagnoses: -- TIPs None Action Plan 1. What type of item is this? Non-medication related Describe the item for the patient takeaway: having all of your medications mailed to you Describe what the patient should do (for the patient takeaway): You can get a 90 day supply of your prescription medications delivered to your home. You also can be signed up for automatic refills, and your prescriptions can be synced up to refill at the same time. Typically, patients who switch to mail order save money on their monthly prescriptions. You will have access to a pharmacist to answer any questions about your medications (Wednesday-Wednesday, 6:30 am to 7 pm). Call [phone] to enroll in mail order services today. Takeaway Service Information o Date CMR was completed: 01/12/2023 o Who was the recipient of the CMR service: Patient o Was the patient in a intermediate manager care (LTC) facility when the CMR was completed? No o Pharmacist's availability for questions: Wednesday-Wednesday 8:00am-4:30pm Takeaway Information o Will the Patient Takeaway be sent to the Patient or someone else? Patient o Language Template for the Patient Takeaway: Armenian o Additional notes for the Patient Takeaway (optional): n/a I attest that I have reviewed and updated the patient's conditions, allergies, and medications to the best of my ability. Patient Access: Is patient utilizing [facility]? Yes Is patient utilizing [facility]? Yes Additional Call Notes Patient enrolled in [place] pharmacy but wishes to transition meds one by one on her own In the hospital, patient reports due to not having pulmicort, reached out to [place] [facility] about pulmicort, they are trying to process for 90 day supply, asked yotent if she wants 90 or 30 DS patient said she does not know since shes not home No other issues identified 30 min cmr Joya Thakur RPh Clinical Pharmacist [facility] ([facility]) 01/12/2023, 11:34 AM documented in this encounter Plan of Treatment Upcoming Encounters Date Type Specialty Care Team Description 02/15/2023 Office Visit Family [facility] [address] [facility] [address] Health Maintenance Due Date Last Done Comments DISCUSS TOBACCO CESSATION (REFER TO SMARTSET #0637) 1955 Alpha-1 Antitrypsin 10/16/1973 Hepatitis C Screening [...] exists LUNG CANCER SCREENING - USE SMARTSET 31591 Completed 05/17/2019, 06/30/2017, 09/12/2015 GARDASIL-HPV IMMUNIZATION SERIES [...] as of this encounter Visit Diagnoses Diagnosis Encounter for medication review- Primary Encounter for long-term (current) use of other medications documented in this encounter Advance Directives Documents on File Type Date Recorded Patient Pipelines Supervisor Expl anation POLST 06/17/2021 [place] [facility] FOR LIFE-SUSTAINING TREATMENT Care Teams Plate Molder Relationship Specialty Start Date End Date Damir De La Cruz MD [address] [place] [address] PCP - General 04/04/00 documented as of this encounter
--- OUTSIDE RECORDS SUMMARY | 2023-06-13 13:11 | External Medical Summary | Summary of Care ---
Author Name Unknown Organization [facility] Address [address] [place] [address] Phone [phone] Care Team Providers Care Licensing And Registration Director Name Role Phone Yvon Gordon MD Primary Care Provider +1- [phone] Reason for Visit * Reason Onset Date Comments Medication Refill 01/03/2023 Encounter Details Date Type Department Care Team Description 01/03/2023 Refill [facility] [address] [place] [address] Yvon Gordon MD [address] [place] [address] Controlled substance agreement signed Allergies Active Allergy Reactions Severity Noted Date Comments Prednisone Psych complications 10/23/2008 intolerance documented as of this encounter (statuses as of 01/04/2023) Medications Medication Sig Dispensed Refills Start Date End Date Status LORATADINE 10 MG PO TABS One pill by mouth once a day as needed for allergies 30 Tab 5 11/09/2011 Active ASPIRIN 81 MG PO CHEWIndications:archie douglassnt states at least 3 to 4 times a week Take by mouth. Indications: patient states at least 3 to 4 times a week 100 Tab 5 06/14/2013 Active oxygen GAS Use 2 L/min(Oxygen) as directed at bedtime. 0 Active guaifenesin ER (MUCINEX) 600 MG [id number]:[place] PD, severe (HCC),Chronic cough Take 1 Tab by mouth 2 times a day. 60 Tab 5 05/03/2019 Active Additional Information Patient taking differently:600 mg Oral BID(AM/PM),Indications: congestion, Reported on 02/05/2022 B Complex Tablet Take 1 Tab by mouth daily. 0 Active Esomeprazole Magnesium 20 MG CPDRIndications:st omach Take by mouth 20 mg daily before breakfast . 0 Active Alendronate Sodium 70 MG Oral Tablet (Fosamax)Indicatio ns:Osteoporosis without current pathological fracture, unspecified osteoporosis type Take 1 Tab by mouth once a week. with 8 oz. water 30 minutes before first meal of the day. Remain upright for 30 min after taking tablet 5 Tab 11 06/13/2020 Active Zinc Sulfate 220 (50 Zn) MG Oral Capsule Take 220 mg by mouth daily. 0 Active Multi-Day Oral Tablet Take 1 [...] only, do not swallow.,Indications: COPD, Reported on 02/05/2022 Azithromycin 250 MG Oral Tablet (Zithromax Z-Miller)Indications: COPD, severe (HCC) Take two tablets by mouth on first day, then 1 tablet daily until gone 6 Tablet 0 11/11/2021 Active Additional Information Patient taking differently:, Take two tablets by mouth on first day, then 1 tablet daily until gone,Indications: bronchitis, Reported on 02/05/2022 Budesonide 0.5 MG/2ML Inhalation Suspension (Pulmicort)Indicat ions:COPD 0.5 mg 2 times a day . 0 11/18/2021 Active Formoterol Fumarate 20 MCG/2ML Inhalation Nebulization Solution (Perforomist)Indic ations:COPD Inhale by mouth 2 times a day [...] the morning. 90 Tablet 0 10/07/2022 Active traZODone HCl 50 MG Oral Tablet [...] needed for Shortness of Breath. 18 g 5 07/21/2022 3 Discontinue d(Refill) traMADol HCl 50 MG Oral Tablet (Ultram)Indication s:Controlled substance agreement signed Take 1 Tablet by mouth every 6 hours as needed for Pain, Moderate. 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 11/18/2021 POLST (Physician Orders for Life-Sustain ing Treatment) 06/17/2021 Controlled substance agreement signed COPD, severe 11/12/2011 DM type 2 causing renal disease 11/05/19 10 Chronic rhinitis 08/22/2002 Tobacco use disorder 12/07/2000 Reflux esophagitis ADJ DISORDER W/DEPRES MOOD Neuropathy documented as of this encounter (statuses as of 01/04/2023) Resolved Problems Problem Noted Date Resolved Date [...] as of this encounter (statuses as of 01/04/2023) Immunizations Name Administration Dates Next Due COVID-19 [...] Telephone Encounter - Yvon Gordon MD - 01/04/2023 5:44 PM EDTSigned Prescriptions: Disp Refills traMADol HCl 50 MG Oral Tablet (Ultram) 120 Ta*0 Sig: Take 1 Tablet by mouth every 6 hours as needed for Pain, Moderate.Authorizing Provider: YVON GORDON--- * Telephone Encounter - Jessica Rivers [facility] - 01/04/2023 1:30 PM EDTPending Prescriptions: Disp Refills traMADol HCl 50 MG Oral Tablet (Ultram) 120 Ta*0 Sig: Take 1 Tablet by mouth every 6 hours as needed for Pain, Moderate. * Telephone Encounter - Jessica Rivers [facility] - 01/04/2023 1:28 PM EDT I have reviewed the patients controlled substance dispensing history in the Prescription Drug Monitoring Program in compliance with the [facility] regulations before prescribing a controlled substance. PDMP checked on 01/04/2023. Pending Prescriptions: Disp Refills traMADol HCl 50 MG Oral Tablet (Ultram) 120 Ta*0 Sig: Take 1 Tablet by mouth every 6 hours as needed for Pain, Moderate. Last Visit: 11/20/2021 (in office), 06/12/2020 (telemedicine) Next Visit: 02/15/2023 Date medication was last filled: 12/08/22 Date medication is due for refill: 7/5/23 [facility] [address] [address] [place] Is this request for a [...] Cutoff Concentration Please approve if appropriate. Thank You, Jessica Rivers [facility] Clinical Pharmacist Centralized Clinical Pharmacy Services ([facility]) (formerly Telepharmacy) [phone] 01/04/2023, 1:28 PM documented in this encounter Plan of Treatment Upcoming Encounters Date Type Specialty Care Team Description 02/15/2023 Office Visit Family Medicine Ana Luisa Mcclain PA-C [address] [place] [address] Health Maintenance Due Date Last Done Comments DISCUSS TOBACCO CESSATION (REFER TO SMARTSET #8265) 1955 Alpha-1 Antitrypsin 10/16/1973 Hepatitis C Screening [...] exists LUNG CANCER SCREENING - USE SMARTSET [id number] Completed 05/17/2019, 06/30/2017, 09/12/2015 GARDASIL-HPV IMMUNIZATION SERIES [...] Documents on File Type Date Recorded 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
--- OUTSIDE RECORDS SUMMARY | 2023-06-13 13:11 | External Medical Summary | Summary of Care ---
Author Name Unknown Organization [facility] Address [address] [place] [address] Phone [phone] Care Team Providers Care Anesthesiologist Assistant Certified Name Role Phone Damir De La Cruz MD Primary Care Provider [phone]- [phone] Reason for Visit * Reason Onset Date Comments Other 01/04/2023 Encounter Details Date Type Department Care Team Description 01/04/2023 Telephone [facility] [address] [place] [address] Damir De La Cruz MD [address] [place] [address] Other Allergies Active Allergy Reactions Severity Noted Date [...] 0 Active guaifenesin ER (MUCINEX) 600 MG [id number]:ELECTRICAL/INSTRUMENT TECHNICIAN D, severe (HCC),Chronic cough Take 1 [...] of Breath. 18 g 0 01/04/2023 Active documented as of this encounter (statuses [...] encounter Miscellaneous Notes * Telephone Encounter - Reyna Bettencourt, [facility] - 01/12/2023 1:15 PM EDT Pt calling to request traMADol HCl 50 MG Oral Tablet (Ultram). Informed pt that RX is available at their pharmacy. Pt verbalized understanding and stated they will check with their pharmacy regardingthis medication. Thank you, Reyna Bettencourt [facility] [employer] ([facility]) 01/12/2023, 1:15 PM * Telephone Encounter - Ketty Mills [facility] - 01/04/2023 5:59 PM EDT Pharmacy calling into check when pt's last umair. Was, Stated to pharmacy she was seen today with Pharmacy, and last Fam Prac umair was 11/20/2021. Thank you, Ketty Mills [employer] Skidder Emily Law 01/04/2023, 6:01 PM documented in this encounter Plan of Treatment Upcoming Encounters Date Type Specialty Care Team Description 02/15/2023 Office Visit Family Medicine Ana Luisa Mcclain PA-C [address] [place] [address] Health Maintenance Due Date Last Done Comments DISCUSS TOBACCO CESSATION (REFER TO SMARTSET #2547) 1955 Alpha-1 Antitrypsin 10/16/1973 Hepatitis C Screening [...] exists LUNG CANCER SCREENING - USE SMARTSET 83971 Completed 05/17/2019, 06/30/2017, 09/12/2015 GARDASIL-HPV IMMUNIZATION SERIES [...] Documents on File Type Date Recorded Patient Insecticide Supervisor Expl anation POLST 06/17/2021 [place] [facility] FOR LIFE-SUSTAINING TREATMENT Care Teams Anesthesiologist Assistant Certified Relationship Specialty Start Date End Date Damir De La Cruz MD [address], [place] [id number] PCP - General 04/04/00 documented as of this encounter
--- OUTSIDE RECORDS SUMMARY | 2023-06-13 13:11 | External Medical Summary | Summary of Care ---
Author Name Unknown Organization [facility] Address [address] [place] [address] Phone [phone] Care Team Providers Care Powder Carrier Name Role Phone Damir De La Cruz MD Primary Care Provider [phone]- [phone] Reason for Visit * Reason Onset Date Comments Medication Refill 01/03/2023 Encounter Details Date Type Department Care Team Description 01/03/2023 Refill [facility] [address] [place] [address] Ana Luisa Mcclain PA-C [address] [place] [address] Allergies Active Allergy Reactions Severity [...] 0 Active guaifenesin ER (MUCINEX) 600 MG [id number]:CO PD, severe (HCC),Chronic cough Take 1 Tab [...] (tiotropium bromide)Indication s:COPD, severity to be determined ([facility]) Inhale 1 Capsule (2 Puffs) in the [...] for Pain, Moderate. 120 Tablet 0 12/08/2022 Active Albuterol Sulfate HFA 108 (90 Base) MCG/ACT Inhalation Aerosol Solution Inhale 2 Puffs by mouth every 4 hours as needed for Shortness of Breath. 18 g 0 01/04/2023 Active Albuterol Sulfate HFA 108 (90 Base) MCG/ACT Inhalation Aerosol Solution Inhale 2 Puffs by mouth every 4 hours as needed for Shortness of Breath. 18 g 5 07/21/2022 3 Discontinue d(Refill) documented as of this [...] encounter Miscellaneous Notes * Telephone Encounter - Subha Daniels [facility] - 01/04/2023 1:31 PM EDTSigned Prescriptions: Disp Refills Albuterol Sulfate HFA 108 (90 Base) MCG/AC*18 g 0 Sig: Inhale 2Puffs by mouth every 4 hours as needed for Shortness of Breath.Authorizing Provider: ANA LUISA MCCLAIN AOrawais User: SUBHA DANIELS * Telephone Encounter - Subha Daniels [facility] - 01/04/2023 1:30 PM EDT RX authorized. Zero refills given until upcoming office visit. Thank You, Subha Daniels [facility] Clinical Pharmacist [facility] ([facility] (formerly Telepharmacy) [phone] 01/04/2023, 1:30 PM documented in this encounter Plan of Treatment Upcoming Encounters Date Type Specialty Care Team Description 02/15/2023 Office Visit Family Medicine Ana Luisa Mcclain PA-C [address] [place] [address] Health Maintenance Due Date Last Done Comments DISCUSS TOBACCO CESSATION (REFER TO SMARTSET #7062) 1955 Alpha-1 Antitrypsin 10/16/1973 Hepatitis C Screening [...] exists LUNG CANCER SCREENING - USE SMARTSET [id number] Completed 05/17/2019, 06/30/2017, 09/12/2015 GARDASIL-HPV IMMUNIZATION SERIES [...] Documents on File Type Date Recorded Patient Bottle Assembler Expl anation POLST 06/17/[address] [place] [address] [facility] FOR LIFE-SUSTAINING TREATMENT Care Teams Powder Carrier Relationship Specialty Start Date End Date Damir De La Cruz MD [address] [place] [address] PCP - General 04/04/00 documented as of this encounter
--- OUTSIDE RECORDS SUMMARY | 2023-06-13 13:11 | External Medical Summary | Summary of Care ---
Author Name Unknown Organization [facility] Address [address] [place] [address] Phone [phone] Care Team Providers Care Technical Service Specialist Name Role Phone Damir De La Cruz MD Primary Care Provider [phone]- [phone] Reason for Visit * Reason Comments Medication Discussion Encounter Details Date Type Department Care Team Description 01/12/2023 Pharmacy Pharmacy Call [facility] [address] [place] [address] [place], Telepharmacy [facility] [phone] [place] [address] Encounter for medication review* Allergies Active Allergy Reactions Severity Noted Date Comments Prednisone Psych complications 10/23/2008 intolerance documented as of this encounter (statuses as of 01/13/2023) Medications Medication Sig Dispensed Refills Start Date [...] 0 Active guaifenesin ER (MUCINEX) 600 MG 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 D, 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 (HCC),Chronic cough Take 1 [...] twice daily 360 mL 11 01/06/2023 Active documented as of this encounter (statuses as of 01/13/2023) Active Problems Problem Noted Date HTN, goal below 140/90 12/21/2021 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 11/18/2021 POLST (Physician Orders for Life-Sustain ing Treatment) 06/17/2021 Controlled substance agreement signed COPD, severe 11/12/2011 DM type 2 causing renal disease 11/05/19 10 Chronic rhinitis 08/22/2002 Tobacco use disorder 12/07/2000 Reflux esophagitis ADJ DISORDER W/DEPRES MOOD Neuropathy documented as of this encounter (statuses as of 01/13/2023) Resolved Problems Problem Noted Date Resolved Date [...] as of this encounter (statuses as of 01/13/2023) Immunizations Name Administration Dates Next Due COVID-19 [...] this encounter Progress Notes * Joya Thakur, [facility] - 01/12/2023 11:19 AM EDT Images from the original note were not included. PHARMACY MTM PROGRESS NOTE [facility] [id number] [facility] [place] [address] Service Delivery Delivery Method: Phone Outcome: CMR [...] 0.083% Inhalation Nebulization Solution (Proventil) Ana Luisa Rosalie Mcclain PA-C Inhale via nebulizer 1 Vial every 4 [...] times a week Associated Diagnoses: COPD, severe ([facility]) B Complex Tablet History Per Patient Associated [...] Tablet before bedtime. Associated Diagnoses: COPD, severe ([facility]), Chronic cough Lisinopril 5 MG Oral Tablet (Prinivil) Damir De La Cruz MD Take 1 Tablet by mouth in the morning. Associated Diagnoses: Type 2 diabetes mellitus with diabetic nephropathy, without long-term currentuse of insulin ([facility]) LORATADINE 10 MG PO TABS [...] Associated Diagnoses: COPD, severity to be determined ([facility]) traMADol HCl 50 MG Oral Tablet (Ultram) Damir De La Cruz MD Take 1 Tablet (50 mg) by mouth every 6 hours as needed for Pain, Moderate. Associated Diagnoses: Controlled substance agreement signed traMADol HCl 50 MG Oral Tablet (Ultram) Damir De aL Cruz MD Take 1 Tablet by mouth every [...] (Wednesday-Wednesday, 6:30 am to 7 pm). Call [phone] to enroll in mail order services today. Takeaway Service Information o Date CMR was completed: 01/12/2023 o Who was the recipient of the CMR service: Patient o Was the patient in a fci care (LTC) facility when the CMR was completed? No o Pharmacist's availability for questions: Wednesday-Wednesday 8:00am-4:30pm Takeaway Information o Will the Patient Takeaway be sent to the Patient or someone else? Patient o Language Template for the Patient Takeaway: Azeri o Additional notes for the Patient Takeaway (optional): n/a I attest that I have reviewed and updated the patient's conditions, allergies, and medications to the best of my ability. Patient Access: Is patient utilizing [facility]? Yes Is patient utilizing [facility]? Yes Additional Call Notes Patient enrolled in [place] pharmacy but wishes to transition meds one by one on her own In the hospital, patient reports due to not having pulmicort, reached out to [place] pharmacy about pulmicort, they are trying to process for 90 day supply, asked yotent if she wants 90 or 30 DS patient said she does not know since shes not home No other issues identified 30 min cmr Joya Thakur [facility] Clinical Pharmacist [facility] 01/12/2023, 11:34 AM documented in this encounter Plan of Treatment Upcoming Encounters Date Type Specialty Care Team Description 02/15/2023 Office Visit Family Medicine Ana Luisa Mcclain, [facility] [address] [facility] [place] [address] Health Maintenance Due Date Last Done Comments DISCUSS TOBACCO CESSATION (REFER TO SMARTSET #2792) 1955 Alpha-1 Antitrypsin 10/16/1973 Hepatitis C Screening [...] exists LUNG CANCER SCREENING - USE SMARTSET [id number] Completed 05/17/2019, 06/30/2017, 09/12/2015 GARDASIL-HPV IMMUNIZATION SERIES [...] Documents on File Type Date Recorded 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
[2023-06-13] MEDS ORDERED: SODIUM CHLORIDE 0.9% 1,000 ML IV SCH (13:45)
--- NOTE | 2023-06-13 14:06 | Emergency Department Note ---
Impression & Plan Acute on chronic respiratory failure with hypoxia and hypercapnia, POLST (Physician Orders for Life-Sustaining Treatment), Fall, Dehydration, Middle ear effusion ED Provider Note NAME: GRANT LACY AGE: 67 SEX: F ARRIVES VIA: Ambulance INFORMANT: Patient ED PROVIDER(S): Redd Sesay MD CHIEF COMPLAINT: Shortness of breath PLAN: Disposition: Admit MEDICAL DECISION MAKING: The patient is a pleasant 67-year-old woman with a past medical history of severe COPD, chronic hypoxic/hypercapnic respiratory failure on home oxygen with POLST indicating limited treatment, hyperlipidemia, hypertension who presents to the emergency department via EMS for evaluation after the patient was found on the ground in her home with her oxygen off and it was estimated that this was no more than 45 minutes as the patient's son had only briefly left her while going upstairs to his home where he lives in close proximity to his mother. They report they speculated that she was preparing to take a nap and transition himself from her nasal cannula to her CPAP which she typically does and in this process had fallen and did not get to put her CPAP on. The patient was placed on oxygen by EMS and returned to baseline. While the patient does have a POLST indicating limited treatment family were concerned and were interested in typical evaluation including blood work and imaging. The patient was initially resistant to this but ultimately did agree. At this time she does express cleared medical decision making capacity understanding risks and benefits of following recommendations and and verbalizes in her own words. I did also asked the patient if her wish to remain home and limit her care is due to depression where she could intentionally want to cause her self-harm versus her chronic illness taking its toll. She felt it was the latter. The patient was admitted to our facility last in February of this year and was discharged with plan to establish care with hospice though this has yet to occur. Family report that she does not have any nursing care beyond once a month. They do feel that she needs closer and more regular medical assistance as they feel she may make errors and administering her home medications including her morphine as well as periodically incorrectly placing her oxygen on where it falls off so it has not occurred to this extent before. As an aside, the family wishes we look at her ears as they noted that she has had significantly decreased hearing over the past couple of months. On evaluation the patient is chronically ill-appearing, cachectic but no acute distress, afebrile with blood pressure 90s/50s but mentating normally and vital signs otherwise stable with O2 saturation 94% on her home nasal cannula/oxygen. She has diminished breath sounds of bilateral lung uw with intermittent wheezes with normal respiratory effort. She has no midline CTL spine tense palpation or step-offs. Pelvis is stable and hips with full range of motion bilaterally. EKG without overt acute ischemia. CXR with likely bibasilar atelectasis and chronic interstitial thickening and other negative for acute cardiopulmonary process per my personal preliminary review/interpretation. WBC and platelets within normal limits. H/H similar to prior range values. Chemistry without metabolic acidosis but with chronically elevated bicarb > 45 similar to prior values consistent with patient's chronic hypercapnic respiratory failure. Lactic acid 0.5, within normal limits. LFTs unremarkable. CPK within normal limits. TSH within normal limits. UA appears contaminated otherwise no bacteria to suggest infection at this time. COVID-[address] of the head was performed and was negative for acute abnormalities. Note is made of bilateral mastoid effusion and right middle ear effusion. Given the patient's change in hearing has occurred over the past couple months it is not felt that these findings represent acute sinus or middle ear infection. TMs are clear bilaterally on examination. Appreciate consultation with case management and assistance who met with the family to evaluate their concerns for the patient's care. Given the patient's POLST and her wishes/preference to continue home management with focus on comfort ultimately it was agreed that the patient will be discharged with plan for follow-up with her PCP to facilitate arranging home nursing care. Of note, it was brought up that at 1 point the patient had commented that she would "overdose on her morphine to kill herself. But upon discussion with the patient she acknowledged that she only said this in the past when she was upset at her family. Subsequent, the patient was discharged but transportation arrangements were delayed for a number of hours and when the patient was departing our facility via wheelchair she suddenly began to complain of increasing shortness of breath that progressively worsened and she requested return to the emergency department. I was called to the bedside and found the patient significantly more short of breath than when she had been last evaluated with diminished breath sounds bilaterally and increased work of breathing. Suspicion for acute mucous plugging and bronchospasm. At this time the patient did agree with resumption of her treatment and plan for admission. Hour-long continuous DuoNeb, Solu-Medrol, guaifenesin and BiPAP were ordered. Doxycycline also ordered for COPD flare. Patient's respiratory status subsequently did stabilize. VBG subsequently ordered and demonstrated acute on chronic hypercapnia with pCO2 of 120 and pH of 7.24. Repeat chest x-ray demonstrates no significant change from her initial presentation 7 hours prior per my preliminary independent interpretation. Case was discussed with Elvis Arauz hospitalist, who will evaluate the patient for admission. Triage Nursing notes reviewed and agree them. Prior/external medical records reviewed Vital Signs: reviewed Differential diagnosis: Reactive airway disease, pneumonia, pneumothorax, COPD, CHF, infections, cardiac ischemia, pulmonary embolism, musculoskeletal, gastrointestinal, as well as other pathologies. ER treatment provided: See below. Diagnostics interpreted by me: ECG: Sinus rhythm with occasional PVCs, 72 bpm, no overt ST elevation or depression, QTc 396, QRS 70 Cardiac Monitoring: An order for continuous cardiac monitoring was placed and demonstrated sinus rhythm with occasional PVCs, 72 bpm Laboratory studies: See below Imaging studies: See below Consultation(s): Case [facility], who will evaluate the patient for admission. HPI: The patient is a pleasant 67-year-old woman with a past medical history of severe COPD, chronic hypoxic/hypercapnic respiratory failure on home oxygen with POLST indicating limited treatment, hyperlipidemia, hypertension who presents to the emergency department via EMS for evaluation after the patient was found on the ground in her home with her oxygen off and it was estimated that this was no more than 45 minutes as the patient's son had only briefly left her while going upstairs to his home where he lives in close proximity to his mother. They report they speculated that she was preparing to take a nap and transition himself from her nasal cannula to her CPAP which she typically does and in this process had fallen and did not get to put her CPAP on. The patient was placed on oxygen by EMS and returned to baseline. While the patient does have a POLST indicating limited treatment family were concerned and were interested in typical evaluation including blood work and imaging. The patient was initially resistant to this but ultimately did agree. At this time she does express cleared medical decision making capacity understanding risks and benefits of following recommendations and and verbalizes in her own words. I did also asked the patient if her wish to remain home and limit her care is due to depression where she could intentionally want to cause her self-harm versus her chronic illness taking its toll. She felt it was the latter. The patient was admitted to our facility last in February of this year and was discharged with plan to establish care with hospice though this has yet to occur. Family report that she does not have any nursing care beyond once a month. They do feel that she needs closer and more regular medical assistance as they feel she may make errors and administering her home medications including her morphine as well as periodically incorrectly placing her oxygen on where it falls off so it has not occurred to this extent before. As an aside, the family wishes we look at her ears as they noted that she has had significantly decreased hearing over the past couple of months. ROS: See above HPI for pertinent positives & negatives. A total of 10 systems reviewed and were otherwise negative. VITALS:See Below PHYSICAL EXAMINATION: GENERAL: Awake, alert, chronically ill-appearing, cachectic, in no distress HENT: Normocephalic, atraumatic. TMs are noninjected and are not bulging. No mastoid tenderness, discoloration or edema bilaterally. Oropharynx with dry mucous membranes and otherwise unremarkable. EYES: Normal conjunctiva. Sclera non-icteric. NECK: Supple. No nuchal rigidity. FROM. No JVD. RESPIRATORY: Diminished breath sounds bilaterally with underlying wheeze without increased work of breathing. CARDIAC: Regular rate, normal rhythm. Extremities warm and well perfused. Pulses equal. ABDOMEN: Soft, non-distended. No tenderness to palpation. No rebound or guarding. No masses. RECTAL: Deferred. MUSCULOSKELETAL: Chest examination reveals no tenderness. No midline CTL spine tense palpation or step-offs. Pelvis is stable and hips with full range of motion bilaterally. There is no CVA tenderness to palpation. No joint edema. LOWER EXTREMITIES: Calves are equal size bilaterally and non-tender. No edema. No discoloration. NEURO: Normal sensorium. No sensory or motor deficits noted. SKIN: No rash or jaundice noted. ED COURSE: Critical Care: I have personally spent greater than 35 minutes of critical care time in the direct management of this patient. This includes bedside care, interpretation of diagnostic studies, and testing, discussion with consultants, patient, and family members, and other required patient management activities. This 35 minutes is in excess of all separately billable procedures. Redd Sesay MD Past Med/Surg History Medical History DM II (diabetes mellitus, type II), controlled Therapeutic drug monitoring Tobacco abuse counseling Chronic hypoxemic respiratory failure Chronic hypercapnic respiratory failure HTN (hypertension) COPD exacerbation Acute respiratory acidosis Acute and chronic respiratory failure with hypercapnia Hypoxemia History of gastroesophageal reflux (GERD) History of hyperlipidemia COPD, very severe Pulmonary emphysema Surgical History History of tonsillectomy History of tubal ligation History of appendectomy Family History Father Coronary heart disease Mother Pancreatic cancer Brother Brain tumor Sister Myocardial infarction Social History Smoking Status: Former smoker Tobacco Type: Cigarettes Cigarettes Per Day: lifelong smoker- now down to 2 per day; Second Hand Exposure: No; Do You Dip or Chew Tobacco: No; Hx Alcohol Use: No Hx Substance Use: No Preferred Language: Bolivian Communication Ability: Effective Loss Prevention Specialist Required: No Beliefs That Will Affect Care: None Current Living Situation: Alone Current Living Situation Comment: son lives upstairs Feels Safe at Home: Yes Assistive Devices: Oxygen - Continuous Allergies Allergies Allergy/AdvReac Type Severity Reaction Status Date / Time prednisone AdvReac Intermediate Confusion/PSYCH Verified 04/29/23 13:03 COMPLICATIONS PER [facility] MED LIST Home Meds Home Medications Medication Instructions Recorded Confirmed atorvastatin 10 mg tablet 10 mg PO HS 05/25/19 06/13/23 lisinopril 5 mg tablet 5 mg PO QAM 05/25/19 06/13/23 loratadine 10 mg capsule 10 mg PO DAILY PRN allergies 05/25/19 06/13/23 trazodone 50 mg tablet 75 mg PO HS 05/25/19 06/13/23 albuterol sulfate 90 mcg/actuation 2 puffs inhalation Q4H PRN 05/26/19 06/13/23 aerosol inhaler (Ventolin HFA) Shortness Of Breath guaifenesin 600 mg tablet, 600 mg PO BID 01/10/23 06/13/23 extended release 12 hr (Mucinex) zinc sulfate 50 mg zinc (220 mg) 50 mg PO QAM 01/10/23 06/13/23 tablet gabapentin 100 mg capsule 100 mg PO HS 04/29/23 06/13/23 arformoterol 15 mcg/2 mL solution 15 mcg inhalation AMHS 06/13/23 06/13/23 for nebulization aspirin 81 mg chewable tablet 81 mg PO [id number] 06/13/23 06/13/23 docusate sodium 100 mg capsule 100 mg PO .EVERY AFTERNOON 06/13/23 06/13/23 ipratropium 0.5 mg-albuterol 3 mg 3 ml inhalation Q6H PRN as directed 06/13/23 06/13/23 (2.5 mg base)/3 mL nebulization soln lansoprazole 15 mg capsule,delayed 15 mg PO QAM 06/13/23 06/13/23 release morphine concentrate 100 mg/5 mL 10 mg PO Q4 PRN Shortness Of Breath 06/13/23 06/13/23 (20 mg/mL) oral solution multivitamin 1 tab PO DAILY 06/13/23 06/13/23 tiotropium bromide 18 mcg capsule 1 cap inhalation QAM 06/13/23 06/13/23 with inhalation device (Spiriva with HandiHaler) Previous Rx's Medication Instructions Recorded Portable Oxygen #1 ea 07/17/22 budesonide 0.5 mg/2 mL suspension 0.5 mg (2 mL) inhalation BID 30 01/14/23 for nebulization days #120 mL formoterol fumarate 20 mcg/2 mL 20 mcg (2 mL) inhalation BIDR #120 01/14/23 solution for nebulization mL (Perforomist) azithromycin 250 mg tablet 250 mg PO MOWEFR COPD #18 tabs 02/17/23 Results & Data (ED) Vital Signs Vital Signs - 24 hr 06/13/23 13:33 06/13/23 13:33 06/13/23 13:33 Temperature 36.7 C Temperature Source Oral Pulse Rate 76 Pulse Rate [Apical] 74 Pulse Rhythm [Apical] Respiratory Rate 20 18 Respiratory Effort / Characteristics Non-Labored Non-Labored Respiratory Depth Normal Normal Blood Pressure 99/52 L Blood Pressure [Right Arm] 99/52 L Blood Pressure Mean 67 Blood Pressure Mean [Right Arm] 67 Blood Pressure Position Lying Blood Pressure Position [Right Arm] Lying Pulse Oximetry 94 94 94 Oxygen Delivery Method Nasal Cannula Nasal Cannula Nasal Cannula Oxygen Flow Rate 6 6 6 Fraction of Inspired Oxygen Sepsis Recent Fever Within 48 Hours No Sepsis New/Unexplained Change in Mental Status Yes Sepsis Action Taken by Nursing No Action Required 06/13/23 14:38 06/13/23 16:12 06/13/23 17:01 Temperature Temperature Source Pulse Rate 78 Pulse Rate [Apical] 79 85 Pulse Rhythm [Apical] Respiratory Rate 22 24 Respiratory Effort / Characteristics Respiratory Depth Normal Normal Blood Pressure Blood Pressure [Right Arm] 108/53 L 103/51 L Blood Pressure Mean Blood Pressure Mean [Right Arm] 71 68 Blood Pressure Position Blood Pressure Position [Right Arm] Lying Sitting Pulse Oximetry 98 96 Oxygen Delivery Method Nasal Cannula Nasal Cannula Oxygen Flow Rate 6 6 Fraction of Inspired Oxygen Sepsis Recent Fever Within 48 Hours Sepsis New/Unexplained Change in Mental Status Sepsis Action Taken by Nursing 06/13/23 18:10 06/13/23 20:00 06/13/23 20:42 Temperature Temperature Source Pulse Rate Pulse Rate [Apical] 81 88 103 H Pulse Rhythm [Apical] Regular Respiratory Rate 20 24 17 Respiratory Effort / Characteristics Tripoding Spontaneous Respiratory Depth Normal Shallow Blood Pressure Blood Pressure [Right Arm] 103/64 Blood Pressure Mean Blood Pressure Mean [Right Arm] 77 Blood Pressure Position Blood Pressure Position [Right Arm] Lying Pulse Oximetry 96 99 98 Oxygen Delivery Method Nasal Cannula Nasal Cannula BiPAP Oxygen Flow Rate 6 6 Fraction of Inspired Oxygen 40 Sepsis Recent Fever Within 48 Hours Sepsis New/Unexplained Change in Mental Status Sepsis Action Taken by Nursing 06/13/23 20:44 06/13/23 20:49 06/13/23 20:59 Temperature Temperature Source Pulse Rate 103 H 97 H Pulse Rate [Apical] 88 Pulse Rhythm [Apical] Respiratory Rate 17 20 Respiratory Effort / Characteristics Spontaneous Respiratory Depth Blood Pressure Blood Pressure [Right Arm] 119/57 L Blood Pressure Mean Blood Pressure Mean [Right Arm] 77 Blood Pressure Position Blood Pressure Position [Right Arm] Pulse Oximetry 98 100 Oxygen Delivery Method Room Air Oxygen Flow Rate Fraction of Inspired Oxygen 40 Sepsis Recent Fever Within 48 Hours Sepsis New/Unexplained Change in Mental Status Sepsis Action Taken by Nursing Laboratory Data Attestation: I reviewed the patient's lab results. 06/13/23 14:01 06/13/23 14:01 Lab Results 06/13/23 06/13/23 06/13/23 Range/Units 14:01 20:35 Unknown WBC 7.27 (4.8-10.8) K/ul RBC 3.39 L (4.20-5.40) M/uL Hgb 10.0 L (12.0-16.0) g/dl Hct 35.2 L (37.0-47.0) % MCV 103.8 H (80.0-100.0) fL MCH 29.5 (25.0-34.0) pg MCHC 28.4 L (32.0-36.0) g/dL RDW Std Deviation 47.7 H (36.4-46.3) fL RDW Coeff of Patricia 12.4 (11.5-14.5) % Plt Count 160 (130-400) K/uL MPV 9.0 L (9.4-12.4) fL Immature Gran % (Auto) 0.3 % Neut % (Auto) 84.6 % Lymph % (Auto) 6.7 % Yancey % (Auto) 7.7 % Eos % (Auto) 0.6 % Baso % (Auto) 0.1 % Neut # (Auto) 6.15 (1.40-6.50) K/uL Lymph # (Auto) 0.49 L (1.20-3.40) K/uL Yancey # (Auto) 0.56 (0.11-0.59) K/uL Eos # (Auto) 0.04 (0.00-0.50) K/uL Baso # (Auto) 0.01 (0.00-0.20) K/uL Immature Gran # (Auto) 0.02 (0.01-0.20) K/uL VBG pH 7.24 L (7.36-7.41) VBG pCO2 120 H (38-50) mmHg VBG pO2 25 mmHg VBG HCO3 51 mmol/L VBG O2 Saturation < 60.0 % VBG Base Excess 18.0 mEq/L Sodium 134 L (136-145) mmol/L Potassium 4.7 (3.5-5.1) mmol/L Chloride 89 L (98-107) mmol/L Carbon Dioxide > 45 H* (21-32) mmol/L Anion Gap TNP BUN 14 (6-23) mg/dl Creatinine 0.45 L (0.6-1.2) mg/dl Est Cr Clr Drug Dosing 112.0 ml/min Est GFR ( Amer) 120.2 ml/min Est GFR (Non-Af Amer) 103.7 ml/min BUN/Creatinine Ratio 31.1 H (10-20) Glucose 103 H (70-99(Fasting)) mg/dl Lactate 0.5 (0.4-2.0) mmol/L Calcium 8.6 (8.6-10.3) mg/dl Magnesium 2.0 (1.7-2.4) mg/dl Total Bilirubin 0.2 (0.2-1.0) mg/dl AST 22 (13-39) U/L ALT 22 (7-52) U/L Alkaline Phosphatase 84 (34-104) U/L Total Creatine Kinase 50 (26-192) U/L Total Protein 5.9 L (6.0-8.3) gm/dl Albumin 3.6 (3.4-5.0) gm/dl Globulin 2.3 L (2.5-4.0) gm/dl Albumin/Globulin Ratio 1.6 (0.9-2) TSH 0.319 (0.300-4.500) uIu/ml Urine Color Dark Yellow Urine Appearance Cloudy A (Clear) Urine pH 5.5 (4.5-7.5) Ur Specific [place] 1.021 (1.000-1.030) Urine Protein 2+ H (Negative) Urine Glucose (UA) Negative (Negative) Urine Ketones Trace H (Negative) Urine Blood Trace H (Negative) Urine Nitrite Negative (Negative) Urine Bilirubin Negative (Negative) Urine Urobilinogen Negative (Negative) Ur Leukocyte Esterase Trace H (Negative) Urine WBC (Auto) 5-10 H (0-5) /hpf Urine RBC (Auto) 0-4 (0-4) /hpf U Hyaline Cast (Auto) 1-5 (0-5) /lpf U Epithel Cells (Auto) >30 H (0-5) /lpf Urine Bacteria (Auto) Negative (Negative) Ur Renal Epithelial Cell Not Reportable Urine Yeast Not Reportable SARS-CoV-2 (PCR) NEGATIVE (Negative) Administered Medications Discontinued Medications Albuterol (Albut/Ipratrop 3mg/0.5mg Neb 3 Ml Vial) 12 ml NEB ONE ONE; Protocol Stop: 06/13/23 20:10 Last Admin: 06/13/23 20:26 Dose: 12 ml Documented By: NU Guaifenesin (Guaifenesin 600 Mg Tabcr) 1,200 mg PO NOW STA Stop: 06/13/23 20:10 Last Admin: 06/13/23 20:26 Dose: 1,200 mg Documented By: NU Sodium Chloride (Nss) 1,000 mls @ 999 mls/hr IV .Q1H1M JAYNE Stop: 06/13/23 14:45 Last Admin: 06/13/23 13:57 Dose: Not Given Documented By: KATE Methylprednisolone (Methylprednisolone 125 Mg/2 Ml Vial) 125 mg IV NOW STA Stop: 06/13/23 20:10 Last Admin: 06/13/23 20:27 Dose: 125 mg Documented By: NU Imaging Data Radiologist's Impression: Chest X-Ray 06/13/23 13:40 XR chest 1V portable HISTORY: 67 years-old Female weakness acute weakness COMPARISON: 02/03/2023 TECHNIQUE: AP view of the chest FINDINGS: Cardiac mediastinal and hilar silhouettes are within normal limits. Emphysema with chronic interstitial coarsening. No pneumothorax, or pleural effusion. Mild right basilar airspace opacities. Surgical clips project over the upper abdomen. Chronic left clavicular deformity. The bones appear grossly intact. IMPRESSION: 1. Mild right basilar opacities may represent atelectasis versus pneumonitis. 2. Emphysema. ACT 112: Negative or not required by law. The above report was generated using voice recognition software. It may contain grammatical, syntax or spelling errors. Electronically signed by: Wilmer Landrum M.D. 06/13/2023 2:[address] 06/13/23 13:41 CT head/brain wo con CLINICAL HISTORY: 67 years-old Female with AMS. Acute altered mental status TECHNIQUE: Multiple axial CT images of the head were obtained without contrast. A dose lowering technique was utilized adhering to the principles of ALARA. CT DOSE: 625.8 mGy.cm COMPARISON: None. FINDINGS: No acute intracranial hemorrhage, midline shift, intracranial mass, hydrocephalus, territorial ischemia or abnormal extra-axial collection. Mildly motion degraded exam. The calvarium is intact. Large mastoid effusions with associated right middle ear effusion. Paranasal sinuses are generally clear. IMPRESSION: 1. No acute intracranial abnormality. 2. Large mastoid effusions. ACT 112: Negative or not required by law. The above report was generated using voice recognition software. It may contain grammatical, syntax or spelling errors. Electronically signed by: Wilmer Landrum M.D. 06/13/2023 3:02 PM Discharge Plan Visit Data Chief Complaint: Lethargic Stated Complaint: LETHARGIC ED Provider: Redd Sesay Discharge Problem: Acute on chronic respiratory failure with hypoxia and hypercapnia, POLST (Physician Orders for Life-Sustaining Treatment), Fall, Dehydration, Middle ear effusion Patient Disposition: Home - Self-Care Discharge Instructions Krames/Other Patient Handouts: What Is Palliative Care, ED Dehydration (Adult) Activity Restrictions/Additional Instructions: Please follow up with your primary care physician this week for re-evaluation and to arrange for additional home care to help you manage at home per your palliative care wishes/POLST. You were seen in the emergency department for evaluation after having a fall and being found without your oxygen. Your CT imaging did show fluid within your middle ear which may explain your recent change in hearing over the past several months. Otherwise, your lab results and imaging did not show any acute abnormalities/change from your baseline values. [id number] guaifenesin (Mucinex) 1200 mg twice daily and nasal saline to help thin and clear mucus as needed. Ensure hydration. Please note that you were evaluated today on an emergency basis and your results demonstrate a single moment in time. You should return to the emergency department for worsening symptoms and as described in the accompanying instructions. --- CT head/brain wo con CLINICAL HISTORY: 67 years-old Female with AMS. Acute altered mental status TECHNIQUE: Multiple axial CT images of the head were obtained without contrast. A dose lowering technique was utilized adhering to the principles of ALARA. CT DOSE: 625.8 mGy.cm COMPARISON: None. FINDINGS: No acute intracranial hemorrhage, midline shift, intracranial mass, hydrocephalus, territorial ischemia or abnormal extra-axial collection. Mildly motion degraded exam. The calvarium is intact. Large mastoid effusions with associated right middle ear effusion. Paranasal sinuses are generally clear. IMPRESSION: 1. No acute intracranial abnormality. 2. Large mastoid effusions. Forms Stand Alone Forms: My [facility], Important Visit Information Prescriptions Prescriptions: No Action (DME) Portable Oxygen Misc See Rx Instructions .Route Qty: 1 0RF Rx Instructions: Oxygen concentrator with portability 3-4LPM via n/c with exertion to maintain O2 sats 88-93% with oxygen conserving device. DEONDRE:99 azithromycin 250 mg tablet 250 mg PO WE Qty: 18 6RF Rx Instructions: Take 1 tab Wednesday, Wednesday, and Wednesday morning atorvastatin 10 mg tablet 10 mg PO HS trazodone 50 mg tablet 75 mg PO HS Rx Instructions: MAY INCREASE TO 2 TABS IN NEEDED FOR SLEEP lisinopril 5 mg tablet 5 mg PO QAM loratadine 10 mg capsule 10 mg PO DAILY PRN (Reason: allergies) albuterol sulfate [Ventolin HFA] 90 mcg/actuation HFA aerosol inhaler 2 puffs INH Q4H PRN (Reason: Shortness Of Breath) gabapentin 100 mg capsule 100 mg PO HS multivitamin [Multi-Day] Tablet 1 tab PO DAILY aspirin 81 mg Tablet,Chewable 81 mg PO 3XWK morphine concentrate 100 mg/5 mL (20 mg/mL) solution 10 mg PO Q4 PRN (Reason: Shortness Of Breath) arformoterol 15 mcg/2 mL solution for nebulization 15 mcg INHALATION AMHS ipratropium-albuterol 0.5 mg-3 mg(2.5 mg base)/3 mL Solution For Nebulization 3 ml INHALATION Q6H PRN (Reason: as directed) lansoprazole 15 mg Capsule,Delayed Release(Dr/Ec) 15 mg PO QAM docusate sodium 100 mg Capsule 100 mg PO .EVERY AFTERNOON tiotropium bromide [Spiriva with HandiHaler] 18 mcg Capsule, W/Inhalation Device 1 cap INHALATION QAM Rx Instructions: puncture 1 cap using device; one dose = 2 inhalations zinc sulfate 50 mg zinc (220 mg) Tablet 50 mg PO QAM guaifenesin [Mucinex] 600 mg Tablet Extended Release 12hr 600 mg PO BID budesonide 0.5 mg/2 mL suspension for nebulization 0.5 mg inhalation BID 30 Days Qty: 120 1RF formoterol fumarate [Perforomist] 20 mcg/2 mL Solution For Nebulization 20 mcg inhalation BIDR Qty: 120 1RF Referrals Referrals: Damir De La Cruz MD [Primary Care Provider] - Discharge Problem: Fall Qualifiers: Encounter type: initial encounter Qualified Code(s): W19.XXXA - Unspecified fall, initial encounter Middle ear effusion Qualifiers: Laterality: bilateral Qualified Code(s): H65.93 - Unspecified nonsuppurative otitis media, bilateral
--- NOTE | 2023-06-13 14:18 | XRay Report ---
XR chest 1V portable HISTORY: 67 years-old Female weakness acute weakness COMPARISON: 02/03/2023 TECHNIQUE: AP view of the chest FINDINGS: Cardiac mediastinal and hilar silhouettes are within normal limits. Emphysema with chronic interstiti al coarsening. No pneumothorax, or pleural effusion. Mild right basilar airspace opacities. Surgical clips project over the upper abdomen. Chronic left clavicular deformity. The bones appear grossly int act. IMPRESSION: 1. Mild right basilar opacities may represent atelectasis versus pneumonitis. 2. Emphysema. ACT 112: Negative or not required by law. The above report was generated using voice recognition software. It may contain grammatical, syntax o r spelling errors. Electronically signed by: Wilmer Landrum M.D. 06/13/2023 2:17 PM
[2023-06-13 14:26] LABS: Basophils # (auto) 0.01 K/uL (0.00-0.20); Basophils % (auto) 0.1 %; Eosinophils # (auto) 0.04 K/uL (0.00-0.50); Eosinophils % (auto) 0.6 %; Hematocrit (blood only) 35.2 % (37.0-47.0); Immature Granulocytes # (auto) 0.02 K/uL (0.01-0.20); Immature Granulocytes % (auto) 0.3 %; Lymphocytes # (auto) 0.49 K/uL (1.20-3.40); Lymphocytes % (auto) 6.7 %; Mean Corpuscular Hemoglobin 29.5 pg (25.0-34.0); Mean Corpuscular Hgb Conc 28.4 g/dL (32.0-36.0); Mean Corpuscular Volume 103.8 fL (80.0-100.0); Monocytes # (auto) 0.56 K/uL (0.11-0.59); Monocytes % (auto) 7.7 %; Neutrophils # (auto) 6.15 K/uL (1.40-6.50); Neutrophils % (auto) 84.6 %; Platelet Count 160 K/uL (130-400); RDW Coefficient of Variation 12.4 % (11.5-14.5); RDW Standard Deviation 47.7 fL (36.4-46.3); Red Blood Count 3.39 M/uL (4.20-5.40); White Blood Count 7.27 K/ul (4.8-10.8)
[2023-06-13 14:51] LABS: Alanine Aminotransferase 22 U/L (7-52); Albumin Globulin Ratio 1.6 (0.9-2); Albumin Level 3.6 gm/dl (3.4-5.0); Alkaline Phosphatase 84 U/L (34-104); Aspartate Aminotransferase 22 U/L (13-39); BUN Creatinine Ratio 31.1 (10-20); Bilirubin,Total 0.2 mg/dl (0.2-1.0); Blood Urea Nitrogen 14 mg/dl (6-23); Calcium 8.6 mg/dl (8.6-10.3); Carbon Dioxide > 45 mmol/L (21-32); Chloride 89 mmol/L (98-107); Creatine Kinase 50 U/L (26-192); Est GFR (African American) 120.2 ml/min; Est GFR (Non-African American) 103.7 ml/min; Globulin 2.3 gm/dl (2.5-4.0); Glucose 103 mg/dl (70-99(Fasting)); Potassium 4.7 mmol/L (3.5-5.1); Sodium 134 mmol/L (136-145); Total Protein 5.9 gm/dl (6.0-8.3)
[2023-06-13 14:54] LABS: Thyroid Stimulating Hormone 0.319 uIu/ml (0.300-4.500)
--- NOTE | 2023-06-13 15:05 | CT Scan Report ---
CT head/brain wo con CLINICAL HISTORY: 67 years-old Female with AMS. Acute altered mental status TECHNIQUE: Multiple axial CT images of the head were obtained without contrast. A dose lowering tech nique was utilized adhering to the principles of ALARA. CT DOSE: 625.8 mGy.cm COMPARISON: None. FINDINGS: No acute intracranial hemorrhage, midline shift, intracranial mass, hydrocephalus, territorial ischem ia or abnormal extra-axial collection. Mildly motion degraded exam. The calvarium is intact. Large mastoid effusions with associated right middle ear effusion. Paranasa l sinuses are generally clear. IMPRESSION: 1. No acute intracranial abnormality. 2. Large mastoid effusions. ACT 112: Negative or not required by law. The above report was generated using voice recognition software. It may contain grammatical, syntax o r spelling errors. Electronically signed by: Wilmer Landrum M.D. 06/13/2023 3:02 PM
[2023-06-13 15:33] LABS: Appearance Urine Cloudy (Clear); Bacteria Urine Automated Negative (Negative); Bilirubin Urine Negative (Negative); Blood Urine Trace (Negative); Color Urine Dark Yellow; Epithelial Cell Urine Auto >30 /lpf (0-5); Glucose Urine UA Negative (Negative); Ketones Urine Trace (Negative); Leukocyte Esterase Urine Trace (Negative); Nitrite Urine Negative (Negative); Protein Urine 2+ (Negative); Specific Gravity Urine 1.021 (1.000-1.030); Urobilinogen Urine Negative (Negative); pH Urine 5.5 (4.5-7.5)
[2023-06-13 15:59] LABS: RBC Urine Automated 0-4 /hpf (0-4)
[2023-06-13] MEDS ORDERED: guaiFENesin 600 MG TABCR PO STA (20:09)
[2023-06-13] MEDS ORDERED: methylPREDNISolone 125 MG/2 ML VIAL IV STA (20:09)
[2023-06-13] MEDS ORDERED: ALBUT/IPRATROP 3MG/0.5MG NEB 3 ML VIAL NEB ONE (20:09)
[2023-06-13] MEDS ORDERED: DOXYCYCLINE HYCLATE 100 MG in DEXTROSE 5% MINI-B 100 ML IV STA (20:19)
[2023-06-13 20:42] LABS: HCO3 VBG 51 mmol/L; Oxygen Saturation VBG < 60.0 %; PCO2 VBG 120 mmHg (38-50); PO2 VBG 25 mmHg; pH VBG 7.24 (7.36-7.41)
--- NOTE | 2023-06-13 22:42 | History & Physical Report ---
Date of Service June 13, 2023 Assessment & Plan (1) Acute on chronic respiratory failure with hypoxia and hypercapnia: Plan: 67-year-old female with past medical significant for type 2 diabetes, diabetic polyneuropathy, hyperlipidemia, severe COPD, chronic respiratory failure on oxygen, chronic rhinitis, hypertension, GERD, osteoporosis, neuropathy, ongoing tobacco abuse, depression who lives alone at home ambulates without support as per patient and son lives upstairs was brought in because patient was found on the ground at home with her oxygen off seems for about 45 minutes as son briefly went up stairs. Acute on chronic respiratory with hypoxia hypercapnia COPD exacerbation Continue BiPAP follow repeat ABG IV steroids, nebs [id number] and as needed IV Rocephin and doxycycline Pulmonary consult in a.m. Hyperlipidemia On statin Diabetes Not on meds Will place on insulin sliding scale DVT prophylaxis heparin subcu Disposition Telemetry floor Social service to help with discharge planning DNR/DNI History of Present Illness Chief Complaint: Acute on chronic respiratory failure COPD exacerbation Primary Care Provider: Damir De La Cruz MD 67-year-old female with past medical history significant for type 2 diabetes, diabetic polyneuropathy, hyperlipidemia, severe COPD, chronic respiratory failure on oxygen, chronic rhinitis, hypertension, GERD, osteoporosis, neuropathy, ongoing tobacco abuse, depression who lives alone at home ambulates without support as per patient and son lives upstairs was brought in because patient was found on the ground at home with her oxygen off seems for about 45 minutes as son briefly went up stairs. Seems patient was trying to nap with the CPAP when this happened. Seems family also concerned that she requires more help at home currently she gets nursing care only once a month. Initial workup is okay and patient decided to go home with follow-up with PCP for more help at home. But as she left hospital she became more short of breath and was brought back in. VBG showed retention of CO2 and she was placed on BiPAP. She also received steroids, hour-long nebs and doxycycline. Currently she is wanted to take off the mask and want to drink and eat. Somewhat tachypneic but seems comfortable. Denies any headache. Denies chest pain. Has cough. No fevers. No nausea. No abdominal pain. No nausea vomiting. States ambulates without support. She says she is hungry and wants to eat. Looks like she also has a POLST form signed. Patient says DNR/DNI. Not able to reach her son. Called the daughter and she confirms she is DNR/DNI. Past medical history. As mentioned above past surgical history Past surgical history. Colposcopy. Cryocautery of cervix. Cystoscopy. Dental surgery. Ligation of oviducts. Right partial nephrectomy. Tonsillectomy and adenoidectomy. Social history. Lives alone. Son lives upstairs. Used to smoke 2 packs a day for 25 years. States currently smokes 3 cigarettes daily. Alcohol rarely. No drug use. Family history. Brother had brain cancer. Brother had testicular cancer. Mother had pancreatic cancer. Allergies Allergy/AdvReac Type Severity Reaction Status Date / Time prednisone AdvReac Intermediate Confusion/PSYCH Verified 04/29/23 13:03 COMPLICATIONS PER [facility] Home Medications Medication Instructions Recorded Confirmed Type atorvastatin 10 mg tablet 10 mg PO HS 05/25/19 06/13/23 History lisinopril 5 mg tablet 5 mg PO QAM 05/25/19 06/13/23 History loratadine 10 mg capsule 10 mg PO DAILY PRN allergies 05/25/19 06/13/23 History trazodone 50 mg tablet 75 mg PO HS 05/25/19 06/13/23 History albuterol sulfate 90 mcg/actuation 2 puffs inhalation Q4H PRN 05/26/19 06/13/23 History aerosol inhaler (Ventolin HFA) Shortness Of Breath Portable Oxygen #1 ea 07/17/22 06/13/23 Rx guaifenesin 600 mg tablet, 600 mg PO BID 01/10/23 06/13/23 History extended release 12 hr (Mucinex) zinc sulfate 50 mg zinc (220 mg) 50 mg PO QAM 01/10/23 06/13/23 History tablet budesonide 0.5 mg/2 mL suspension 0.5 mg (2 mL) inhalation BID 30 01/14/23 06/13/23 Rx for nebulization days #120 mL formoterol fumarate 20 mcg/2 mL 20 mcg (2 mL) inhalation BIDR #120 01/14/23 06/13/23 Rx solution for nebulization mL (Perforomist) azithromycin 250 mg tablet 250 mg PO MOWEFR COPD #18 tabs 02/17/23 06/13/23 Rx gabapentin 100 mg capsule 100 mg PO HS 04/29/23 06/13/23 History arformoterol 15 mcg/2 mL solution 15 mcg inhalation AMHS 06/13/23 06/13/23 History for nebulization aspirin 81 mg chewable tablet 81 mg PO 3XWK 06/13/23 06/13/23 History docusate sodium 100 mg capsule 100 mg PO .EVERY AFTERNOON 06/13/23 06/13/23 History ipratropium 0.5 mg-albuterol 3 mg 3 ml inhalation Q6H PRN as directed 06/13/23 06/13/23 History (2.5 mg base)/3 mL nebulization soln lansoprazole 15 mg capsule,delayed 15 mg PO QAM 06/13/23 06/13/23 History release morphine concentrate 100 mg/5 mL 10 mg PO Q4 PRN Shortness Of Breath 06/13/23 06/13/23 History (20 mg/mL) oral solution multivitamin 1 tab PO DAILY 06/13/23 06/13/23 History tiotropium bromide 18 mcg capsule 1 cap inhalation QAM 06/13/23 06/13/23 History with inhalation device (Spiriva with HandiHaler) Past Med/Surg History Medical History DM II (diabetes mellitus, type II), controlled Therapeutic drug monitoring Tobacco abuse counseling Chronic hypoxemic respiratory failure Chronic hypercapnic respiratory failure HTN (hypertension) COPD exacerbation Acute respiratory acidosis Acute and chronic respiratory failure with hypercapnia Hypoxemia History of gastroesophageal reflux (GERD) History of hyperlipidemia COPD, very severe Pulmonary emphysema Surgical History History of tonsillectomy History of tubal ligation History of appendectomy Family History Father Coronary heart disease Mother Pancreatic cancer Brother Brain tumor Sister Myocardial infarction Social History Smoking Status: Light tobacco smoker Tobacco Type: Cigarettes Cigarettes Per Day: 3; Second Hand Exposure: No; Do You Dip or Chew Tobacco: No; Tobacco Cessation Education Requested by Patient: No Hx Alcohol Use: No Hx Substance Use: No Preferred Language: Tunisian Communication Ability: Effective Presentation Team Member Required: No Beliefs That Will Affect Care: None Current Living Situation: Alone Current Living Situation Comment: from home alone Other Information That Helps Us Care for You: No Feels Safe at Home: Yes Safety Concerns: Feels Safe At This Time Assistive Devices: None Review of Systems Review of Systems: All systems reviewed & are unremarkable except as noted in HPI & below Physical Exam Physical Exam: General- Not in distress. Hard of hearing. Head- atraumatic Eyes- PERRL. ENT- oropharynx clear Neck- supple, no JVD. Lungs- b/l diminished breath sounds , mild tachypnea, no wheezing or crackles. Heart- regular rhythm; no murmur, no gallop. Abdomen- normal bowel sounds, soft, nontender, no distension. Extremities- no pretibial edema, no erythema seen. Neuro- alert, oriented ; PERRL, EOMI; no facial palsy; no dysarthria; moves extremities. Skin- warm & dry Results & Data Results & Data Vital Signs (Past 12 Hours) Vital Signs Temp Pulse Pulse Resp BP BP Pulse Ox 06/13/23 22:00 79 22 137/71 99 06/13/23 20:59 88 20 119/57 L 100 06/13/23 20:49 97 H 06/13/23 20:44 103 H 17 98 06/13/23 20:42 103 H 17 98 06/13/23 20:00 88 24 99 06/13/23 18:10 81 20 103/64 96 06/13/23 17:01 85 24 103/51 L 96 06/13/23 16:12 78 06/13/23 14:38 79 22 108/53 L 98 06/13/23 13:33 74 18 99/52 L 94 06/13/23 13:33 94 06/13/23 13:33 36.7 C 76 20 99/52 L 94 O2 Del Method O2 Flow Rate FiO2 06/13/23 22:00 BiPAP 06/13/23 20:59 Room Air 06/13/23 20:49 06/13/23 20:44 40 06/13/23 20:42 BiPAP 40 06/13/23 20:00 Nasal Cannula 6 06/13/23 18:10 Nasal Cannula 6 06/13/23 17:01 Nasal Cannula 6 06/13/23 16:12 06/13/23 14:38 Nasal Cannula 6 06/13/23 13:33 Nasal Cannula 6 06/13/23 13:33 Nasal Cannula 6 06/13/23 13:33 Nasal Cannula 6 Diagnostic Findings Laboratory Results WBC 7.27 K/ul (4.8-10.8) 06/13/23 14:01 RBC 3.39 M/uL (4.20-5.40) L 06/13/23 14:01 Hgb 10.0 g/dl (12.0-16.0) L 06/13/23 14:01 Hct 35.2 % (37.0-47.0) L 06/13/23 14:01 MCV 103.8 fL (80.0-100.0) H 06/13/23 14:01 MCH 29.5 pg (25.0-34.0) 06/13/23 14:01 MCHC 28.4 g/dL (32.0-36.0) L 06/13/23 14:01 RDW Std Deviation 47.7 fL (36.4-46.3) H 06/13/23 14:01 RDW Coeff of Patricia 12.4 % (11.5-14.5) 06/13/23 14:01 Plt Count 160 K/uL (130-400) 06/13/23 14:01 MPV 9.0 fL (9.4-12.4) L 06/13/23 14:01 Immature Gran % (Auto) 0.3 % 06/13/23 14:01 Neut % (Auto) 84.6 % 06/13/23 14:01 Lymph % (Auto) 6.7 % 06/13/23 14:01 [place] % (Auto) 7.7 % 06/13/23 14:01 Eos % (Auto) 0.6 % 06/13/23 14:01 Baso % (Auto) 0.1 % 06/13/23 14:01 Neut # (Auto) 6.15 K/uL (1.40-6.50) 06/13/23 14:01 Lymph # (Auto) 0.49 K/uL (1.20-3.40) L 06/13/23 14:01 [place] # (Auto) 0.56 K/uL (0.11-0.59) 06/13/23 14:01 Eos # (Auto) 0.04 K/uL (0.00-0.50) 06/13/23 14:01 Baso # (Auto) 0.01 K/uL (0.00-0.20) 06/13/23 14:01 Immature Gran # (Auto) 0.02 K/uL (0.01-0.20) 06/13/23 14:01 VBG pH 7.24 (7.36-7.41) L 06/13/23 20:35 VBG pCO2 120 mmHg (38-50) H 06/13/23 20:35 VBG pO2 25 mmHg 06/13/23 20:35 VBG HCO3 51 mmol/L 06/13/23 20:35 VBG O2 Saturation < 60.0 % 06/13/23 20:35 VBG Base Excess 18.0 mEq/L 06/13/23 20:35 Sodium 134 mmol/L (136-145) L 06/13/23 14:01 Potassium 4.7 mmol/L (3.5-5.1) 06/13/23 14:01 Chloride 89 mmol/L (98-107) L 06/13/23 14:01 Carbon Dioxide > 45 mmol/L (21-32) H* 06/13/23 14:01 Anion Gap TNP 06/13/23 14:01 BUN 14 mg/dl (6-23) 06/13/23 14:01 Creatinine 0.45 mg/dl (0.6-1.2) L 06/13/23 14:01 Est Cr Clr Drug Dosing 112.0 ml/min 06/13/23 14:01 Est GFR ( Amer) 120.2 ml/min 06/13/23 14:01 Est GFR (Non-Af Amer) 103.7 ml/min 06/13/23 14:01 BUN/Creatinine Ratio 31.1 (10-20) H 06/13/23 14:01 Glucose 103 mg/dl (70-99(Fasting)) H 06/13/23 14:01 Lactate 0.5 mmol/L (0.4-2.0) 06/13/23 14:01 Calcium 8.6 mg/dl (8.6-10.3) 06/13/23 14:01 Magnesium 2.0 mg/dl (1.7-2.4) 06/13/23 14:01 Total Bilirubin 0.2 mg/dl (0.2-1.0) 06/13/23 14:01 AST 22 U/L (13-39) 06/13/23 14:01 ALT 22 U/L (7-52) 06/13/23 14:01 Alkaline Phosphatase 84 U/L (34-104) 06/13/23 14:01 Total Creatine Kinase 50 U/L (26-192) 06/13/23 14:01 Total Protein 5.9 gm/dl (6.0-8.3) L 06/13/23 14:01 Albumin 3.6 gm/dl (3.4-5.0) 06/13/23 14:01 Globulin 2.3 gm/dl (2.5-4.0) L 06/13/23 14:01 Albumin/Globulin Ratio 1.6 (0.9-2) 06/13/23 14:01 TSH 0.319 uIu/ml (0.300-4.500) 06/13/23 14:01 Urine Color Dark Yellow 06/13/23 Unknown Urine Appearance Cloudy (Clear) A 06/13/23 Unknown Urine pH 5.5 (4.5-7.5) 06/13/23 Unknown Ur Specific [place] 1.021 (1.000-1.030) 06/13/23 Unknown Urine Protein 2+ (Negative) H 06/13/23 Unknown Urine Glucose (UA) Negative (Negative) 06/13/23 Unknown Urine Ketones Trace (Negative) H 06/13/23 Unknown Urine Blood Trace (Negative) H 06/13/23 Unknown Urine Nitrite Negative (Negative) 06/13/23 Unknown Urine Bilirubin Negative (Negative) 06/13/23 Unknown Urine Urobilinogen Negative (Negative) 06/13/23 Unknown Ur Leukocyte Esterase Trace (Negative) H 06/13/23 Unknown Urine WBC (Auto) 5-10 /hpf (0-5) H 06/13/23 Unknown Urine RBC (Auto) 0-4 /hpf (0-4) 06/13/23 Unknown U Hyaline Cast (Auto) 1-5 /lpf (0-5) 06/13/23 Unknown U Epithel Cells (Auto) >30 /lpf (0-5) H 06/13/23 Unknown Urine Bacteria (Auto) Negative (Negative) 06/13/23 Unknown Ur Renal Epithelial Cell Not Reportable 06/13/23 Unknown Urine Yeast Not Reportable 06/13/23 Unknown SARS-CoV-2 (PCR) NEGATIVE (Negative) 06/13/[address] 06/13/23 13:41 CT head/brain wo con CLINICAL HISTORY: 67 years-old Female with AMS. Acute altered mental status TECHNIQUE: Multiple axial CT images of the head were obtained without contrast. A dose lowering technique was utilized adhering to the principles of ALARA. CT DOSE: 625.8 mGy.cm COMPARISON: None. FINDINGS: No acute intracranial hemorrhage, midline shift, intracranial mass, hydrocephalus, territorial ischemia or abnormal extra-axial collection. Mildly motion degraded exam. The calvarium is intact. Large mastoid effusions with associated right middle ear effusion. Paranasal sinuses are generally clear. IMPRESSION: 1. No acute intracranial abnormality. 2. Large mastoid effusions. ACT 112: Negative or not required by law. The above report was generated using voice recognition software. It may contain grammatical, syntax or spelling errors. Electronically signed by: Wilmer Landrum M.D. 06/13/2023 3:02 PM ECG Additional Comments: ECG. Sinus rhythm with occasional PVCs rate is 102. No acute ST changes seen. Code Status & VTE Plan VTE Prophylaxis Plan VTE Prophylaxis will be ordered: Yes
[2023-06-14] MEDS ORDERED: NITROGLYCERIN SL 0.4 MG/TAB TAB SL PRN (02:25)
[2023-06-14] MEDS ORDERED: CARBOHYDRATES FOR HYPOGLYCEMIA PO PRN (02:25)
[2023-06-14] MEDS ORDERED: POLYETHYLENE (MIRALAX) 17 GM PACK PO PRN (02:25)
[2023-06-14] MEDS ORDERED: MoRPHine SULFATE 10 MG/0.5 ML UDP PO PRN (02:25)
[2023-06-14] MEDS ORDERED: DEXTROSE 50% 50 ML SYRINGE IV PRN (02:25)
[2023-06-14] MEDS ORDERED: GLUCAGON FOR INJ 1 MG VIAL SQ PRN (02:25)
[2023-06-14] MEDS ORDERED: ALBUT/IPRATROP 3MG/0.5MG NEB 3 ML VIAL NEB PRN ×2 (02:25→09:49)
[2023-06-14] MEDS ORDERED: GLUCOSE 10 TAB/TUBE PO PRN (02:25)
[2023-06-14] MEDS ORDERED: GLUCOSE 40% GEL 15 GM TUBE PO PRN (02:25)
[2023-06-14] MEDS ORDERED: ACETAMINOPHEN 325 MG TAB PO PRN (02:25)
[2023-06-14] MEDS ORDERED: ALBUTEROL HFA 8 GM INHALER INH PRN (02:25)
[2023-06-14] MEDS ORDERED: LORATADINE 10 MG TAB PO PRN (02:56)
[2023-06-14] MEDS ORDERED: cefTRIAXone SODIUM 1,000 MG in DEXTROSE 5 % MINI-B 50 ML IV SCH (03:00)
[2023-06-14] MEDS: methylPREDNISolone 40 MG in SYRINGE 0 ML IV SCH ×2 (03:59→11:56)
[2023-06-14] MEDS ORDERED: ALBUT/IPRATROP 3MG/0.5MG NEB 3 ML VIAL NEB SCH (07:00)
[2023-06-14] MEDS: BUDESONIDE 0.5 MG/2 ML VIAL (PULMICORT) INH SCH ×2 (07:20→20:36)
[2023-06-14] MEDS: FORMOTEROL 20 MCG/2 ML VIAL INH SCH ×2 (07:20→20:36)
[2023-06-14 07:48] LABS: BUN Creatinine Ratio 29.7 (10-20); Calcium 8.9 mg/dl (8.6-10.3); Creatinine Clr Calc Pharmacy 88.5 ml/min; Est GFR (African American) 128.2 ml/min; Est GFR (Non-African American) 110.6 ml/min; Magnesium 1.9 mg/dl (1.7-2.4); Potassium 4.5 mmol/L (3.5-5.1)
[2023-06-14 07:51] LABS: Base Excess ABG 20.3 mEq/L (-9-1.8); HCO3 ABG 49 mmol/L (19-24); Oxygen Saturation ABG 98.4 % (90-95); PCO2 ABG 76 mmHg (35-46); PO2 ABG 112 mmHg (80-95); pH ABG 7.42 (7.35-7.45)
[2023-06-14 07:52] LABS: Allen Test Pos (Pos)
[2023-06-14] MEDS: INSULIN ASPART PER UNIT CHARGE SC SCH ×5 (08:36→20:46)
--- NOTE | 2023-06-14 08:36 | Pulmonary Consultation ---
Date of Consultation June 14, 2023 Assessment & Plan (1) Acute exacerbation of chronic obstructive pulmonary disease: (2) Chronic hypoxemic respiratory failure: (3) Chronic hypercapnic respiratory failure: Plan Impression: 67-year-old female with end-stage obstructive lung disease and hypoxemic and hypercarbic respiratory failure admitted with exacerbation. She unfortunately continues her tobacco habit. She is improved with noninvasive positive pressure ventilation and is DNR/DNI. Hospice had been discussed at a prior hospitalization but apparently this was never set up as the patient was stable. Recommendations: 1. Acute exacerbation of COPD: Continue Solu-Medrol, budesonide, and Perforomist as well as as needed DuoNebs. 2. Hypercarbic respiratory failure: Recommend the patient try and have her home AVAPS machine brought in if at all possible. If not, we will continue to use our machine nightly. 3. Mastoiditis/sinusitis: Likely the etiology for her exacerbation. Recommend decongestants. She has been placed on antibiotics and will defer to the primary service additional management strategy. Will place her on Sudafed 3 times daily in conjunction with her Claritin. 4. Hypoxemia: Would not try and target oxygen saturations much above 90 to 92% given her concomitant hypercarbia. Getting the patient out of bed to chair and ambulatory as soon as possible may be beneficial. She is not a candidate for any other advanced therapies at this point in time. We will continue to follow with you. The patient's overall prognosis is severely guarded and agree with DNR/DNI. Recommend reengaging palliative care. History of Present Illness Attending Physician: Yulissa Gamble MD History of Present Illness Asked by hospitalist to assist in evaluation management of this patient admitted with end-stage COPD and acute on chronic hypercarbic respiratory failure. History is obtained from discussion with the patient as well as review the electronic medical record. Patient is a 67-year-old female with end-stage obstructive lung disease and chronic hypoxemic and hypercarbic respiratory failure who is followed by Dr. Thomas in the outpatient setting. She was found altered yesterday and brought to the emergency room and found to be in hypercarbic respiratory failure. She has AVAPS at home. She was placed on BiPAP and admitted after receiving steroids antibiotics and bronchodilators. She improved overnight and has been weaned off of BiPAP this morning. She states she is feeling better. She does complain of some congestion in her sinuses which may have been the triggering event. She states she has not taken any new medications. She has been compliant with her medical regiment as previously prescribed. She has not had fevers chills or night sweats. She is unclear if she has had ill contacts. The patient unfortunately continues her tobacco habit. She denies any chest pain palpitations or significant lower extremity edema. According to the last hospital's notes in February, the patient was to transition to palliative care/hospice in the outpatient setting however it does not appear that this ever happened. Allergies Allergy/AdvReac Type Severity Reaction Status Date / Time prednisone AdvReac Intermediate Confusion/PSYCH Verified 04/29/23 13:03 COMPLICATIONS PER [facility] MED LIST Home Medications Medication Instructions Recorded Confirmed Type atorvastatin 10 mg tablet 10 mg PO HS 05/25/19 06/13/23 History lisinopril 5 mg tablet 5 mg PO QAM 05/25/19 06/13/23 History loratadine 10 mg capsule 10 mg PO DAILY PRN allergies 05/25/19 06/13/23 History trazodone 50 mg tablet 75 mg PO HS 05/25/19 06/13/23 History albuterol sulfate 90 mcg/actuation 2 puffs inhalation Q4H PRN 05/26/19 06/13/23 History aerosol inhaler (Ventolin HFA) Shortness Of Breath Portable Oxygen #1 ea 07/17/22 06/13/23 Rx guaifenesin 600 mg tablet, 600 mg PO BID 01/10/23 06/13/23 History extended release 12 hr (Mucinex) zinc sulfate 50 mg zinc (220 mg) 50 mg PO QAM 01/10/23 06/13/23 History tablet budesonide 0.5 mg/2 mL suspension 0.5 mg (2 mL) inhalation BID 30 01/14/23 06/13/23 Rx for nebulization days #120 mL formoterol fumarate 20 mcg/2 mL 20 mcg (2 mL) inhalation BIDR #120 01/14/23 06/13/23 Rx solution for nebulization mL (Perforomist) azithromycin 250 mg tablet 250 mg PO MOWEFR COPD #18 tabs 02/17/23 06/13/23 Rx gabapentin 100 mg capsule 100 mg PO HS 04/29/23 06/13/23 History arformoterol 15 mcg/2 mL solution 15 mcg inhalation AMHS 06/13/23 06/13/23 History for nebulization aspirin 81 mg chewable tablet 81 mg PO [id number] 06/13/23 06/13/23 History docusate sodium 100 mg capsule 100 mg PO .EVERY AFTERNOON 06/13/23 06/13/23 History ipratropium 0.5 mg-albuterol 3 mg 3 ml inhalation Q6H PRN as directed 06/13/23 06/13/23 History (2.5 mg base)/3 mL nebulization soln lansoprazole 15 mg capsule,delayed 15 mg PO QAM 06/13/23 06/13/23 History release morphine concentrate 100 mg/5 mL 10 mg PO Q4 PRN Shortness Of Breath 06/13/23 06/13/23 History (20 mg/mL) oral solution multivitamin 1 tab PO DAILY 06/13/23 06/13/23 History tiotropium bromide 18 mcg capsule 1 cap inhalation QAM 06/13/23 06/13/23 History with inhalation device (Spiriva with HandiHaler) Patient History Medical History DM II (diabetes mellitus, type II), controlled Therapeutic drug monitoring Tobacco abuse counseling Chronic hypoxemic respiratory failure Chronic hypercapnic respiratory failure HTN (hypertension) COPD exacerbation Acute respiratory acidosis Acute and chronic respiratory failure with hypercapnia Hypoxemia History of gastroesophageal reflux (GERD) History of hyperlipidemia COPD, very severe Pulmonary emphysema Surgical History History of tonsillectomy History of tubal ligation History of appendectomy Family History Father Coronary heart disease Mother Pancreatic cancer Brother Brain tumor Sister Myocardial infarction Social History Smoking Status: Light tobacco smoker Tobacco Type: Cigarettes Cigarettes Per Day: 3; Second Hand Exposure: No; Do You Dip or Chew Tobacco: No; Tobacco Cessation Education Requested by Patient: No Hx Alcohol Use: No Hx Substance Use: No Preferred Language: Martiniquais Communication Ability: Effective Customer Service Supervisor Required: No Beliefs That Will Affect Care: None Current Living Situation: Alone Current Living Situation Comment: from home alone Other Information That Helps Us Care for You: No Feels Safe at Home: Yes Safety Concerns: Feels Safe At This Time Assistive Devices: None Review of Systems Review of Systems: Please refer to admission H&P. No additions or deletions Physical Exam Constitutional: + cachectic, + physical limitations and + frail appearing Neck: trachea midline, no thyromegaly Respiratory: normal respiratory effort, + abnormal respiratory pattern and + audible wheezes; does not use accessory muscles Auscultation: + diminished lung sounds and + abnormal I/E ratio Increased AP diameter Cardiovascular: Heart Sounds: normal S1 and normal S2; no murmur Extremities: no edema Gastrointestinal (Abdomen): normal bowel sounds, soft, nontender, no hepatosplenomegaly Skin: no rashes, warm and dry Psychiatric: Orientation: alert and oriented x 3 Results & Data Results & Data Vital Signs (Past 12 Hours) Vital Signs Temp Pulse Pulse Resp BP BP Pulse Ox 06/14/23 07:57 06/14/23 07:35 36.8 C 77 18 138/65 97 06/14/23 07:34 78 22 97 06/14/23 05:21 99 06/14/23 03:00 95 H 19 95 06/14/23 02:25 83 06/14/23 02:25 36.8 C 87 20 168/72 H 96 06/14/23 02:25 06/14/23 02:20 36.8 C 87 24 168/72 H 96 06/14/23 02:15 06/14/23 01:52 06/14/23 00:24 84 06/14/23 00:00 86 19 124/71 94 06/13/23 22:00 79 22 137/71 99 06/13/23 20:59 88 20 119/57 L 100 06/13/23 20:49 97 H 06/13/23 20:44 103 H 17 98 06/13/23 20:42 103 H 17 98 Pulse Ox O2 Del Method O2 Del Method O2 Flow Rate O2 Flow Rate FiO2 06/14/23 07:57 Nasal Cannula 7 06/14/23 07:35 High Flow Nasal Cannula 7 06/14/23 07:34 Nasal Cannula 7 06/14/23 05:21 Nasal Cannula 7 06/14/23 03:00 40 06/14/23 02:25 06/14/23 02:25 Nasal Cannula 7 06/14/23 02:25 96 Nasal Cannula 7 06/14/23 02:20 High Flow Nasal Cannula 7 06/14/23 02:15 Nasal Cannula 7 06/14/23 01:52 Nasal Cannula 06/14/23 00:24 06/14/23 00:00 Nasal Cannula 6 06/13/23 22:00 BiPAP 06/13/23 20:59 BiPAP 06/13/23 20:49 06/13/23 20:44 40 06/13/23 20:42 BiPAP 40 Critical Care Results & Data Vital Signs (Past 12 Hours) Vital Signs Temp Pulse Pulse Resp BP BP Pulse Ox 06/14/23 07:57 06/14/23 07:35 36.8 C 77 18 138/65 97 06/14/23 07:34 78 22 97 06/14/23 05:21 99 06/14/23 03:00 95 H 19 95 06/14/23 02:25 83 06/14/23 02:25 36.8 C 87 20 168/72 H 96 06/14/23 02:25 06/14/23 02:20 36.8 C 87 24 168/72 H 96 06/14/23 02:15 06/14/23 01:52 06/14/23 00:24 84 06/14/23 00:00 86 19 124/71 94 06/13/23 22:00 79 22 137/71 99 06/13/23 20:59 88 20 119/57 L 100 06/13/23 20:49 97 H 06/13/23 20:44 103 H 17 98 06/13/23 20:42 103 H 17 98 Pulse Ox O2 Del Method O2 Del Method O2 Flow Rate O2 Flow Rate FiO2 06/14/23 07:57 Nasal Cannula 7 06/14/23 07:35 High Flow Nasal Cannula 7 06/14/23 07:34 Nasal Cannula 7 06/14/23 05:21 Nasal Cannula 7 06/14/23 03:00 40 06/14/23 02:25 06/14/23 02:25 Nasal Cannula 7 06/14/23 02:25 96 Nasal Cannula 7 06/14/23 02:20 High Flow Nasal Cannula 7 06/14/23 02:15 Nasal Cannula 7 06/14/23 01:52 Nasal Cannula 06/14/23 00:24 06/14/23 00:00 Nasal Cannula 6 06/13/23 22:00 BiPAP 06/13/23 20:59 BiPAP 06/13/23 20:49 06/13/23 20:44 40 06/13/23 20:42 BiPAP 40 Lab & Micro Results (Past 24 Hours) RBC 3.39 M/uL (4.20-5.40) L 06/13/23 WBC 7.27 K/ul (4.8-10.8) 06/13/23 Hgb 10.0 g/dl (12.0-16.0) L 06/13/23 Hct 35.2 % (37.0-47.0) L 06/13/23 MCV 103.8 fL (80.0-100.0) H 06/13/23 MCH 29.5 pg (25.0-34.0) 06/13/23 MCHC 28.4 g/dL (32.0-36.0) L 06/13/23 RDW Standard Deviation 47.7 fL (36.4-46.3) H 06/13/23 RDW Coefficient of Variation 12.4 % (11.5-14.5) 06/13/23 Plt Count 160 K/uL (130-400) 06/13/23 MPV 9.0 fL (9.4-12.4) L 06/13/23 Neutrophils (%) (Auto) 84.6 % 06/13/23 Lymphocytes (%) (Auto) 6.7 % 06/13/23 Monocytes # (Auto) 0.56 K/uL (0.11-0.59) 06/13/23 Eosinophils # (Auto) 0.04 K/uL (0.00-0.50) 06/13/23 Immature Granulocyte % (Auto) 0.3 % 06/13/23 Neutrophils # (Auto) 6.15 K/uL (1.40-6.50) 06/13/23 Lymphocytes # (Auto) 0.49 K/uL (1.20-3.40) L 06/13/23 Monocytes # (Auto) 0.56 K/uL (0.11-0.59) 06/13/23 Eosinophils # (Auto) 0.04 K/uL (0.00-0.50) 06/13/23 Basophils # (Auto) 0.01 K/uL (0.00-0.20) 06/13/23 Immature Granulocyte # (Auto) 0.02 K/uL (0.01-0.20) 3 Na 134 mmol/L (136-145) L 06/14/23 K 4.5 mmol/L (3.5-5.1) 06/14/23 Cl 89 mmol/L (98-107) L 06/14/23 CO2 45 mmol/L (21-32) H* 06/14/23 Anion Gap 0 (3-11) L 06/14/23 BUN 11 mg/dl (6-23) 06/14/23 Creatinine 0.37 mg/dl (0.6-1.2) L 06/14/23 Estimated GFR ( Amer) 128.2 ml/min 06/14/23 Estimated GFR (Non-Af Amer) 110.6 ml/min 06/14/23 BUN/Creatinine Ratio 29.7 (10-20) H 06/14/23 Glu 125 mg/dl (70-99(Fasting)) H 06/14/23 Ca 8.9 mg/dl (8.6-10.3) 06/14/23 Total Bilirubin 0.2 mg/dl (0.2-1.0) 06/13/23 AST 22 U/L (13-39) 06/13/23 ALT 22 U/L (7-52) 06/13/23 Alkaline Phosphatase 84 U/L (34-104) 06/13/23 TP 5.9 gm/dl (6.0-8.3) L 06/13/23 Albumin 3.6 gm/dl (3.4-5.0) 06/13/23 Globulin 2.3 gm/dl (2.5-4.0) L 06/13/23 Albumin/Globulin Ratio 1.6 (0.9-2) 06/13/23 Mg 1.9 mg/dl (1.7-2.4) 06/14/23 06:41 Calcium Level 8.9 mg/dl (8.6-10.3) 06/14/23 06:41 Venous Blood pH 7.24 (7.36-7.41) L 06/13/23 20:35 Venous Blood Partial Pressure CO2 120 mmHg (38-50) H 06/13/23 2 0:35 Venous Blood Partial Pressure O2 25 mmHg 06/13/23 20:35 Venous Blood HCO3 51 mmol/L 06/13/23 20:35 Venous Blood Base Excess 18.0 mEq/L 06/13/23 20:35 Venous Blood Oxygen Saturation < 60.0 % 06/13/23 20:35 Arterial Blood pH 7.42 (7.35-7.45) 06/14/23 07:27 Arterial Blood Partial Pressure CO2 76 mmHg (35-46) H 06/14/23 07:27 Arterial Blood Partial Pressure O2 112 mmHg (80-95) H 06/14/23 07:27 Arterial Blood HCO3 49 mmol/L (19-24) H 06/14/23 07:27 Arterial Blood Base Excess 20.3 mEq/L (-9-1.8) H 06/14/23 07:27 Arterial Blood Oxygen Saturation 98.4 % (90-95) H 06/14/23 07:2 7 Blood Gas Oxygen Given 7L 06/14/23 07:27 Mark Test Pos (Pos) 06/14/23 07:27 Diagnostic Findings (Past 24 Hours) Chest X-Ray 06/13/23 13:40 XR chest 1V portable HISTORY: 67 years-old Female weakness acute weakness COMPARISON: 02/03/2023 TECHNIQUE: AP view of the chest FINDINGS: Cardiac mediastinal and hilar silhouettes are within normal limits. Emphysema with chronic interstitial coarsening. No pneumothorax, or pleural effusion. Mild right basilar airspace opacities. Surgical clips project over the upper abdomen. Chronic left clavicular deformity. The bones appear grossly intact. IMPRESSION: 1. Mild right basilar opacities may represent atelectasis versus pneumonitis. 2. Emphysema. ACT 112: Negative or not required by law. The above report was generated using voice recognition software. It may contain grammatical, syntax or spelling errors. Electronically signed by: Wilmer Landrum M.D. 06/13/2023 2:[address] 06/13/23 13:41 CT head/brain wo con CLINICAL HISTORY: 67 years-old Female with AMS. Acute altered mental status TECHNIQUE: Multiple axial CT images of the head were obtained without contrast. A dose lowering technique was utilized adhering to the principles of ALARA. CT DOSE: 625.8 mGy.cm COMPARISON: None. FINDINGS: No acute intracranial hemorrhage, midline shift, intracranial mass, hydrocephalus, territorial ischemia or abnormal extra-axial collection. Mildly motion degraded exam. The calvarium is intact. Large mastoid effusions with associated right middle ear effusion. Paranasal sinuses are generally clear. IMPRESSION: 1. No acute intracranial abnormality. 2. Large mastoid effusions. ACT 112: Negative or not required by law. The above report was generated using voice recognition software. It may contain grammatical, syntax or spelling errors. Electronically signed by: Wilmer Landrum M.D. 06/13/2023 3:02 PM I & O Totals 24 Hours 06/13/23 06/14/23 06/15/23 06:59 06:59 06:59 Intake Total 150 / 150 Output Total Balance 149 / 149 Cumulative 06/13/23 12:35 thru 06/14/23 05:00 Intake Total 150 Output Total 1 Balance 149 RT Ventilator Mngmt (Last Documented) Ventilator Ordered Settings Respiratory Rate 18 06/14/23 07:35 Fraction of Inspired Oxygen 40 06/14/23 03:00 Ventilator - PT Measurements Respiratory Rate 18 PG Care Time/CCT Total # of Minutes Spent Total Time Spent with Patient: Total time spent is greater than 50% in coordination of care (as documented) at patient's floor/unit and/or counseling patient: Coding Level of Care Code 98181 INT INP/OBS CARE 3/75MIN Diagnoses Acute exacerbation of chronic obstructive pulmonary disease J44.1 Chronic hypoxemic respiratory failure J96.11 Chronic hypercapnic respiratory failure J96.12
[2023-06-14 08:41] LABS: Hemoglobin 9.8 g/dl (12.0-16.0); Immature Granulocytes # (auto) 0.02 K/uL (0.01-0.20); Immature Granulocytes % (auto) 0.4 %; Lymphocytes # (auto) 0.18 K/uL (1.20-3.40); Lymphocytes % (auto) 3.4 %; Mean Corpuscular Hemoglobin 29.9 pg (25.0-34.0); Mean Corpuscular Hgb Conc 30.6 g/dL (32.0-36.0); Mean Corpuscular Volume 97.6 fL (80.0-100.0); Mean Platelet Volume 9.3 fL (9.4-12.4); Monocytes # (auto) 0.08 K/uL (0.11-0.59); Monocytes % (auto) 1.5 %; Neutrophils # (auto) 5.07 K/uL (1.40-6.50); Neutrophils % (auto) 94.7 %; Platelet Count 170 K/uL (130-400); RBC Morphology Unremarkable; RDW Coefficient of Variation 12.3 % (11.5-14.5); RDW Standard Deviation 44.4 fL (36.4-46.3); Red Blood Count 3.28 M/uL (4.20-5.40); White Blood Count 5.35 K/ul (4.8-10.8)
--- NOTE | 2023-06-14 08:42 | XRay Report ---
XR chest 1V portable HISTORY: 67 years-old Female shortness of breath acute shortness of breath COMPARISON: 06/13/2023 TECHNIQUE: AP view of the chest FINDINGS: Cardiac mediastinal and hilar silhouettes are within normal limits. Emphysema with chronic interstiti al coarsening. No pneumothorax. Asymmetric blunting of the right costophrenic angle. Mild right basil ar airspace opacities again noted. Surgical clips project over the upper abdomen. Chronic left clavic ular deformity. The bones appear grossly intact. IMPRESSION: 1. Emphysema with chronic interstitial coarsening. 2. Trace right pleural effusion with mild right basilar atelectasis versus pneumonitis. ACT 112: Negative or not required by law. The above report was generated using voice recognition software. It may contain grammatical, syntax o r spelling errors. Electronically signed by: Wilmer Landrum M.D. 06/14/2023 8:41 AM
[2023-06-14] MEDS ORDERED: ARFORMOTEROL TART 15MCG/2ML VIAL INH SCH (09:00)
[2023-06-14] MEDS ORDERED: ASPIRIN 81 MG ECTAB PO SCH (09:00)
[2023-06-14] MEDS: DOXYCYCLINE HYCLATE 100 MG in DEXTROSE 5% MINI-B 100 ML IV SCH ×2 (09:09→20:09)
[2023-06-14] MEDS: MULTIVITAMIN TAB PO SCH (09:10)
[2023-06-14] MEDS: lisinopril 5 MG TAB PO SCH (09:11)
[2023-06-14] MEDS: PANTOprazole 40 MG TAB PO SCH (09:12)
[2023-06-14] MEDS: guaiFENesin 600 MG TABCR PO SCH ×2 (09:12→20:16)
[2023-06-14] MEDS: UMECLIDINIUM BROMIDE 62.5MCG/BLISTER 7 PUFFS/INHALER INH SCH (09:13)
[2023-06-14] MEDS: ZINC SULFATE 220 MG CAPSULE PO SCH (09:13)
[2023-06-14] MEDS: PSEUDOEPHEDRINE HCL 30 MG TAB PO SCH ×3 (09:17→20:14)
[2023-06-14] MEDS: HEPARIN SOD 5,000 UNIT/0.5 ML VIAL SQ SCH ×2 (10:51→20:16)
[2023-06-14] MEDS ORDERED: SODIUM CHLORIDE 0.65% NA SOLN 45 ML (OCEAN) ONE (11:55)
[2023-06-14] MEDS: DOCUSATE SODIUM 100 MG CAP PO SCH (15:01)
--- NOTE | 2023-06-14 15:09 | Electrocardiogram Report ---
Test Reason : Blood Pressure : / mmHG Vent. Rate : 072 BPM Atrial Rate : 072 BPM P-R Int : 148 ms QRS Dur : 070 ms QT Int : 362 ms P-R-T Axes : 082 068 072 degrees QTc Int : 396 ms Sinus rhythm with occasional Premature ventricular complexes Otherwise normal ECG When compared with ECG of 03-FEB-2023 13:16, Premature ventricular complexes are now Present Vent. rate has decreased BY 51 BPM Confirmed by Rojelio Abdalla ([id number]) on 06/14/2023 3:08:52 PM Referred By: Confirmed By:Rojelio Abdalla
--- NOTE | 2023-06-14 15:12 | Hospitalist Progress Note ---
Date of Service June 14, 2023 Assessment & Plan (1) Acute on chronic respiratory failure with hypoxia and hypercapnia: Plan: Ms. Goodwin is a 67-year-old female with past medical significant for type 2 diabetes, diabetic polyneuropathy, hyperlipidemia, severe end-stage COPD, chronic respiratory failure on oxygen, chronic rhinitis, hypertension, GERD, osteoporosis, neuropathy, ongoing tobacco abuse, depression who lives alone at home ambulates without support as per patient and son lives upstairs was brought in because patient was found on the ground at home with her oxygen off seems for about 45 minutes as son briefly went up stairs. Patient admitted for acute on chronic hypercarbic/hypoxic respiratory failure. Patient improved over night and feeling better this am. Reports wishing to return home as able. Plans for home hospice in am. #Acute on chronic respiratory with hypoxia hypercapnia #Acute COPD exacerbation Pulmonary consulted on patient, notes reviewed Continue BiPAP with our machine (patient wishes to DC tomorrow with hospice therefore will does not wish to bring in AVAPS) Continue solumedrol, duonebs, budesonide, and Perforomist -Transition to PO Augmentin BID x 7 days #Acute sinusitis -Start sudafed 30mg TID -Claritin at bedtime -Flonase spray -Transition to PO Augmentin BID x 7 days #Hyperlipidemia On statin #Diabetes Not on meds Will place on insulin sliding scale DVT prophylaxis heparin subcu Disposition Telemetry floor Social service to help with discharge planning, maybe hospice tomorrow if all is clear from respiratory standpoint, discussing prednisone taper with Pulm DNR/DNI Admission and Anticipated Discharge Date Admission Date: June 13, 2023 Subjective On NC this am. Reports wishing family didnt bring her in. She states she just "hasnt" set up the hospice quite yet and has deferred to family to ensure this is arranged Physical Exam Constitutional: thin, cachetic woman Respiratory: wheezing, no increased effort noted Results & Data Results & Data Vital Signs (Past 12 Hours) Vital Signs Temp Pulse Pulse Resp BP Pulse Ox O2 Del Method 06/14/23 12:27 36.8 C 93 H 20 194/91 H 100 Nasal Cannula, High Flow Nasal Cannula 06/14/23 07:57 Nasal Cannula 06/14/23 07:35 36.8 C 77 18 138/65 97 High Flow Nasal Cannula 06/14/23 07:34 78 22 97 Nasal Cannula 06/14/23 07:30 83 06/14/23 05:21 99 Nasal Cannula 06/14/23 03:00 95 H 19 95 O2 Flow Rate FiO2 06/14/23 12:27 6 06/14/23 07:57 7 06/14/23 07:35 7 06/14/23 07:34 7 06/14/23 07:30 06/14/23 05:21 7 06/14/23 03:00 40 Laboratory Results Short CBC 06/14/23 Range/Units 06:41 WBC 5.35 (4.8-10.8) K/ul Hgb 9.8 L (12.0-16.0) g/dl Hct 32.0 L (37.0-47.0) % Plt Count 170 (130-400) K/uL BMP 06/14/23 06:41 Sodium 134 L Potassium 4.5 Chloride 89 L Carbon Dioxide 45 H* BUN 11 Creatinine 0.37 L Glucose 125 H Calcium 8.9 Urine 06/13/23 Range/Units Unknown Urine Color Dark Yellow Urine Appearance Cloudy A (Clear) Urine pH 5.5 (4.5-7.5) Ur Specific [place] 1.021 (1.000-1.030) Urine Protein 2+ H (Negative) Urine Glucose (UA) Negative (Negative) Medications Administered Home Medications Medication Instructions Recorded Confirmed Last Taken atorvastatin 10 mg tablet 10 mg PO HS 05/25/19 06/13/23 02/02/23 lisinopril 5 mg tablet 5 mg PO QAM 05/25/19 06/13/23 02/03/23 loratadine 10 mg capsule 10 mg PO DAILY PRN allergies 05/25/19 06/13/23 11/12/21 trazodone 50 mg tablet 75 mg PO HS 05/25/19 06/13/23 02/02/23 albuterol sulfate 90 mcg/actuation 2 puffs inhalation Q4H PRN 05/26/19 06/13/23 11/13/21 aerosol inhaler (Ventolin HFA) Shortness Of Breath Portable Oxygen #1 ea 07/17/22 06/13/23 Unknown guaifenesin 600 mg tablet, 600 mg PO BID 01/10/23 06/13/23 02/03/23 08:00 extended release 12 hr (Mucinex) zinc sulfate 50 mg zinc (220 mg) 50 mg PO QAM 01/10/23 06/13/23 02/03/23 tablet budesonide 0.5 mg/2 mL suspension 0.5 mg (2 mL) inhalation BID 30 01/14/23 06/13/23 02/03/23 08:00 for nebulization days #120 mL formoterol fumarate 20 mcg/2 mL 20 mcg (2 mL) inhalation BIDR #120 01/14/23 06/13/23 02/03/23 08:00 solution for nebulization mL (Perforomist) azithromycin 250 mg tablet 250 mg PO MOWEFR COPD #18 tabs 02/17/23 06/13/23 Unknown gabapentin 100 mg capsule 100 mg PO HS 04/29/23 06/13/23 Unknown arformoterol 15 mcg/2 mL solution 15 mcg inhalation AMHS 06/13/23 06/13/23 Unknown for nebulization aspirin 81 mg chewable tablet 81 mg PO [id number] 06/13/23 06/13/23 Unknown docusate sodium 100 mg capsule 100 mg PO .EVERY AFTERNOON 06/13/23 06/13/23 Unknown ipratropium 0.5 mg-albuterol 3 mg 3 ml inhalation Q6H PRN as directed 06/13/23 06/13/23 Unknown (2.5 mg base)/3 mL nebulization soln lansoprazole 15 mg capsule,delayed 15 mg PO QAM 06/13/23 06/13/23 Unknown release morphine concentrate 100 mg/5 mL 10 mg PO Q4 PRN Shortness Of Breath 06/13/23 06/13/23 Unknown (20 mg/mL) oral solution multivitamin 1 tab PO DAILY 06/13/23 06/13/23 Unknown tiotropium bromide 18 mcg capsule 1 cap inhalation QAM 06/13/23 06/13/23 Unknown with inhalation device (Spiriva with HandiHaler) Active Medications Generic Name Dose Route Start Last Admin Trade Name Freq PRN Reason Stop Dose Admin Acetaminophen 650 mg 06/14/23 02:25 06/14/23 02:52 Acetaminophen 325 Mg Tab PO 07/14/23 02:24 650 mg Q4H PRN Administration Pain or Fever Aspirin 81 mg 06/14/23 09:00 06/14/23 09:10 Aspirin 81 Mg Ectab PO 07/14/23 08:59 81 mg [id number] JAYNE Administration Budesonide 0.5 mg 06/14/23 07:00 06/14/23 07:20 Budesonide 0.5 Mg/2 Ml Vial (Pulmicort) INH 07/14/23 06:59 0.5 mg BIDR JAYNE Administration Formoterol Fumarate 20 mcg 06/14/23 07:00 06/14/23 07:20 Formoterol 20 Mcg/2 Ml Vial INH 07/14/23 06:59 20 mcg BIDR JAYNE Administration Guaifenesin 600 mg 06/14/23 09:00 06/14/23 09:12 Guaifenesin 600 Mg Tabcr PO 07/14/23 08:59 600 mg BID JAYNE Administration Heparin Sodium (Porcine) 5,000 units 06/14/23 09:00 06/14/23 10:51 Heparin Sod 5,000 Unit/0.5 Ml Vial SQ 07/14/23 08:59 Not Given Q12 JAYNE Ceftriaxone Sodium 1,000 mg/ 50 mls @ 100 mls/hr 06/14/23 03:00 06/14/23 03:21 Dextrose IV 06/21/23 02:59 Infused Q24H JAYNE Infusion Protocol Doxycycline Hyclate 100 mg/ 100 mls @ 50 mls/hr 06/14/23 09:00 06/14/23 11:20 Dextrose IV 06/21/23 08:59 Infused Q12H JAYNE Infusion Methylprednisolone 40 mg/ 0.64 mls @ 1.5 mls/min 06/14/23 04:00 06/14/23 11:56 Syringe IV 07/14/23 03:59 1.5 mls/min Q8H JAYNE Administration Insulin Aspart 0 units 06/14/23 07:30 06/14/23 11:59 Insulin Aspart Per Unit Charge SC 07/14/23 07:29 2 units ACHS JAYNE Administration Lisinopril 5 mg 06/14/23 09:00 06/14/23 09:11 Lisinopril 5 Mg Tab PO 07/14/23 08:59 5 mg QAM JAYNE Administration Morphine Sulfate 10 mg 06/14/23 02:25 06/14/23 11:30 Morphine Sulfate 10 Mg/0.5 Ml Udp PO 06/28/23 02:24 10 mg Q4H PRN Administration Shortness Of Breath Multivitamins 1 tab 06/14/23 09:00 06/14/23 09:10 Multivitamin Tab PO 07/14/23 08:59 1 tab DAILY JAYNE Administration Pantoprazole Sodium 40 mg 06/14/23 09:00 06/14/23 09:12 Pantoprazole 40 Mg Tab PO 07/14/23 08:59 40 mg QAM JAYNE Administration Polyethylene Glycol 17 gm 06/14/23 02:25 06/14/23 11:23 Polyethylene (Miralax) 17 Gm Pack PO 07/14/23 02:24 17 gm DAILY PRN Administration Constipation Pseudoephedrine HCl 30 mg 06/14/23 09:00 06/14/23 09:17 Pseudoephedrine Hcl 30 Mg Tab PO 07/14/23 08:59 30 mg TID JAYNE Administration Umeclidinium [place] 1 puffs 06/14/23 09:00 06/14/23 09:13 Umeclidinium [place] 62.5mcg/Blister 7 Puffs/Inhaler INH 07/14/23 08:59 1 puffs QAM JAYNE Administration Zinc Sulfate 220 mg 06/14/23 09:00 06/14/23 09:13 Zinc Sulfate 220 Mg Capsule PO 07/14/23 08:59 220 mg QAM JAYNE Administration
--- NOTE | 2023-06-14 15:24 | Communication Note ---
Date of Service: June 14, 2023 communication order placed: Please keep oxygen between 90-92% and not sustained >93% given her CO2 retention Titrate down NC if sustaining >93%
--- NOTE | 2023-06-14 18:03 | Electrocardiogram Report ---
Test Reason : Blood Pressure : / mmHG Vent. Rate : 081 BPM Atrial Rate : 081 BPM P-R Int : 144 ms QRS Dur : 068 ms QT Int : 320 ms P-R-T Axes : 081 073 081 degrees QTc Int : 371 ms Normal sinus rhythm with sinus arrhythmia Normal ECG When compared with ECG of 13-JUN-2023 13:11, (unconfirmed) Premature ventricular complexes are no longer Present Confirmed by Rojelio Abdalla ([id number]) on 06/14/2023 6:02:57 PM Referred By: REFERRED SELF Confirmed By:Rojelio Abdalla
[2023-06-14] MEDS: AMOXICILLIN/CLAVULANATE 875 MG TAB PO SCH (18:12)
[2023-06-14] MEDS: FLUTICASONE PROPIONATE NA SPR 16 GM BTL SCH (18:13)
[2023-06-14] MEDS ORDERED: GABAPENTIN 100 MG CAP PO SCH (21:00)
[2023-06-14] MEDS ORDERED: traZODone HCL 50 MG TAB PO SCH (21:00)
[2023-06-14] MEDS ORDERED: methylPREDNISolone 40 MG in SYRINGE 0 ML IV SCH (21:00)
[2023-06-14] MEDS ORDERED: ATORVASTATIN 10 MG TAB PO SCH (21:00)
[2023-06-15 06:17] LABS: Base Excess VBG 24.8 mEq/L; HCO3 VBG 56 mmol/L; Oxygen Saturation VBG < 60.0 %; PCO2 VBG 92 mmHg (38-50); PO2 VBG 29 mmHg; pH VBG 7.39 (7.36-7.41)
[2023-06-15 06:23] LABS: Hematocrit (blood only) 29.7 % (37.0-47.0); Mean Corpuscular Hemoglobin 29.8 pg (25.0-34.0); Mean Corpuscular Hgb Conc 30.3 g/dL (32.0-36.0); Mean Corpuscular Volume 98.3 fL (80.0-100.0); Mean Platelet Volume 8.9 fL (9.4-12.4); Platelet Count 151 K/uL (130-400); RDW Coefficient of Variation 12.9 % (11.5-14.5); RDW Standard Deviation 46.1 fL (36.4-46.3); Red Blood Count 3.02 M/uL (4.20-5.40); White Blood Count 7.26 K/ul (4.8-10.8)
[2023-06-15 06:30] LABS: Blood Urea Nitrogen 13 mg/dl (6-23); Carbon Dioxide > 45 mmol/L (21-32); Chloride 91 mmol/L (98-107); Est GFR (African American) 122.9 ml/min; Est GFR (Non-African American) 106.1 ml/min; Glucose 115 mg/dl (70-99(Fasting)); Magnesium 1.9 mg/dl (1.7-2.4); Phosphorus 3.9 mg/dl (2.5-4.9); Sodium 137 mmol/L (136-145)
[2023-06-15] MEDS: FORMOTEROL 20 MCG/2 ML VIAL INH SCH (07:51)
[2023-06-15] MEDS: BUDESONIDE 0.5 MG/2 ML VIAL (PULMICORT) INH SCH (07:51)
--- NOTE | 2023-06-15 08:19 | Pulmonology Progress Note ---
Date of Service June 15, 2023 Assessment & Plan (1) Acute exacerbation of chronic obstructive pulmonary disease: (2) Chronic hypoxemic respiratory failure: (3) Chronic hypercapnic respiratory failure: Plan Impression: 67-year-old female with end-stage obstructive lung disease and hypoxemic and hypercarbic respiratory failure admitted with exacerbation. She unfortunately continues her tobacco habit. She is significantly improved this morning. Recommendations: 1. Acute exacerbation of COPD: Can transition off Solu-Medrol to prednisone. Continue budesonide, and Perforomist as well as as needed nebulized albuterol. She can continue azithromycin 3 times a week for anti-inflammatory properties 2. Hypercarbic respiratory failure: R continue nocturnal AVAPS. The patient will follow-up with her [employer] company for replacement tubing, filters, and supplies. 3. Mastoiditis/sinusitis: Likely the etiology for her exacerbation. Continue decongestants. Antibiotics per primary service. Follow-up with ENT scheduled for next month. 4. Hypoxemia: Would not try and target oxygen saturations much above 90 to 92% given her concomitant hypercarbia. Increase activity. 5. Patient would like to get hospice arranged at home. She feels like she is ready at this point in time. Case management can facilitate this discussion. Patient appears to be at her pulmonary baseline. She can be dismissed from the hospital with outpatient hospice. She has follow-up already scheduled. Admission and Anticipated Discharge Date Admission Date: June 13, 2023 Subjective Patient seen and examined. EMR reviewed. The patient is lying supine and appears to be breathing much more comfortably than yesterday. She states she had a good night. She used noninvasive positive pressure ventilation overnight and tolerated it well. She is coughing less. She is wheezing less. She feels less congested and feels that she is able to walk for short distances. The addition of decongestants has been markedly helpful with regards to her sinus complaints. She is tolerating a regular diet. She feels like she may be approaching her baseline. She is interested in setting up hospice at home. She has been looking into it is in the outpatient setting but has not yet made final arrangements. She has an appointment scheduled with ENT the first week of July and she already has follow-up scheduled with her outpatient child care centre manager. Review of Systems 2 Review of Systems: All systems reviewed & are unremarkable except as noted in Subjective Physical Exam 2 Constitutional: + cachectic, + physical limitations and + frail appearing Neck: trachea midline, no thyromegaly Respiratory: normal respiratory effort, + abnormal respiratory pattern and + audible wheezes; does not use accessory muscles Auscultation: + diminished lung sounds and + abnormal I/E ratio Cardiovascular: Heart Sounds: normal S1 and normal S2; no murmur E xtremities: no edema Gastrointestinal (Abdomen): normal bowel sounds, soft, nontender, no hepatosplenomegaly Skin: no rashes, warm and dry Psychiatric: Orientation: alert and oriented x 3 Results & Data Results & Data Vital Signs (Past 12 Hours) Vital Signs Temp Pulse Pulse Resp BP Pulse Ox O2 Del Method 06/15/23 07:51 79 18 96 Nasal Cannula 06/15/23 07:16 36.7 C 67 16 100/62 97 Nasal Cannula 06/15/23 03:00 36.9 C 81 14 93/52 L 100 Nasal Cannula 06/14/23 23:00 36.9 C 95 H 16 124/72 97 Nasal Cannula 06/14/23 22:09 85 06/14/23 20:38 78 18 98 Nasal Cannula O2 Flow Rate 06/15/23 07:51 6 06/15/23 07:16 6 06/15/23 03:00 06/14/23 23:00 06/14/23 22:09 06/14/23 20:38 6 Laboratory Results 06/15/23 05:49 06/15/23 05:49 PG Care Time/CCT Total # of Minutes Spent Total Time Spent with Patient: Total time spent is greater than 50% in coordination of care (as documented) at patient's floor/unit and/or counseling patient: Coding Level of Care Code 55085 SUB INP/OBS CARE 2/35MIN Diagnoses Acute exacerbation of chronic obstructive pulmonary disease J44.1 Chronic hypoxemic respiratory failure J96.11 Chronic hypercapnic respiratory failure J96.12
[2023-06-15] MEDS: FLUTICASONE PROPIONATE NA SPR 16 GM BTL SCH (08:34)
[2023-06-15] MEDS: HEPARIN SOD 5,000 UNIT/0.5 ML VIAL SQ SCH ×2 (08:34→08:42)
[2023-06-15] MEDS: AMOXICILLIN/CLAVULANATE 875 MG TAB PO SCH (08:34)
[2023-06-15] MEDS: guaiFENesin 600 MG TABCR PO SCH (08:34)
[2023-06-15] MEDS: lisinopril 5 MG TAB PO SCH (08:34)
[2023-06-15] MEDS: MULTIVITAMIN TAB PO SCH (08:34)
[2023-06-15] MEDS: PSEUDOEPHEDRINE HCL 30 MG TAB PO SCH ×2 (08:34→14:59)
[2023-06-15] MEDS: PANTOprazole 40 MG TAB PO SCH (08:34)
[2023-06-15] MEDS: ZINC SULFATE 220 MG CAPSULE PO SCH (08:34)
[2023-06-15] MEDS: UMECLIDINIUM BROMIDE 62.5MCG/BLISTER 7 PUFFS/INHALER INH SCH (08:37)
[2023-06-15] MEDS: INSULIN ASPART PER UNIT CHARGE SC SCH ×2 (08:42→13:12)
[2023-06-15] MEDS ORDERED: predniSONE 20 MG TAB PO SCH (09:00)
--- NOTE | 2023-06-15 12:23 | Discharge Summary ---
Discharge Summary Date of Service June 15, 2023 Notes For Next Care Provider Medication Changes From Visit PO Augmentin BID for acute bacterial sinusitis Sudafed 30mg TID for sinus relief Flonase intranasal Admission HPI Per Admitting Provider 67-year-old female with past medical history significant for type 2 diabetes, diabetic polyneuropathy, hyperlipidemia, severe COPD, chronic respiratory failure on oxygen, chronic rhinitis, hypertension, GERD, osteoporosis, neuropathy, ongoing tobacco abuse, depression who lives alone at home ambulates without support as per patient and son lives upstairs was brought in because patient was found on the ground at home with her oxygen off seems for about 45 minutes as son briefly went up stairs. Seems patient was trying to nap with the CPAP when this happened. Seems family also concerned that she requires more help at home currently she gets nursing care only once a month. Initial workup is okay and patient decided to go home with follow-up with PCP for more help at home. But as she left hospital she became more short of breath and was brought back in. VBG showed retention of CO2 and she was placed on BiPAP. She also received steroids, hour-long nebs and doxycycline. Currently she is wanted to take off the mask and want to drink and eat. Somewhat tachypneic but seems comfortable. Denies any headache. Denies chest pain. Has cough. No fevers. No nausea. No abdominal pain. No nausea vomiting. States ambulates without support. She says she is hungry and wants to eat. Looks like she also has a POLST form signed. Patient says DNR/DNI. Not able to reach her son. Called the daughter and she confirms she is DNR/DNI. Past medical history. As mentioned above past surgical history Past surgical history. Colposcopy. Cryocautery of cervix. Cystoscopy. Dental surgery. Ligation of oviducts. Right partial nephrectomy. Tonsillectomy and adenoidectomy. Social history. Lives alone. Son lives upstairs. Used to smoke 2 packs a day for 25 years. States currently smokes 3 cigarettes daily. Alcohol rarely. No drug use. Family history. Brother had brain cancer. Brother had testicular cancer. Mother had pancreatic cancer. Admission Exam Per Admitting Provider General- Not in distress. Hard of hearing. Head- atraumatic Eyes- PERRL. ENT- oropharynx clear Neck- supple, no JVD. Lungs- b/l diminished breath sounds , mild tachypnea, no wheezing or crackles. Heart- regular rhythm; no murmur, no gallop. Abdomen- normal bowel sounds, soft, nontender, no distension. Extremities- no pretibial edema, no erythema seen. Neuro- alert, oriented ; PERRL, EOMI; no facial palsy; no dysarthria; moves extremities. Skin- warm & dry Principal Dx & Hospital Course #1 = Principal Diagnosis (1) Acute on chronic respiratory failure with hypoxia and hypercapnia: Ms. Goodwin is a 67-year-old female with past medical significant for type 2 diabetes, diabetic polyneuropathy, hyperlipidemia, severe end-stage COPD, c hronic respiratory failure on oxygen, chronic rhinitis, hypertension, GERD, osteoporosis, neuropathy, ongoing tobacco abuse, depression who lives alone at home ambulates without support as per patient and son lives upstairs was brought in because patient was found on the ground at home with her oxygen off seems for about 45 minutes as son briefly went up stairs. Patient admitted for acute on chronic hypercarbic/hypoxic respiratory failure. Patient improved over night and feeling better this am. Reports wishing to return home as able. Plans for home hospice in am. #Acute on chronic respiratory with hypoxia hypercapnia #Acute COPD exacerbation Pulmonary consulted on patient, notes reviewed Continue solumedrol, duonebs, budesonide, and Perforomist -Transitioned to PO Augmentin BID x 7 days -Continue home Azithro [id number] for antinflammatory effects -Continue home AVAPS #Acute sinusitis -Start sudafed 30mg TID -Claritin at bedtime -Flonase spray -Transition to PO Augmentin BID x 7 days #Hyperlipidemia On statin #Diabetes Not on meds Liberalize diet for comfort/hospice On day of discharge, patient reports feeling much better and tolerating diet. She discharged with home hospice service coordinated. Discharge Exam Constitutional thin frail cachectic woman Respiratory decreased breath sounds Cardiovascular RRR, no murmur, no edema Updated Medication List Medication Instructions Recorded Confirmed Type atorvastatin 10 mg tablet 10 mg PO HS 05/25/19 06/13/23 History lisinopril 5 mg tablet 5 mg PO QAM 05/25/19 06/13/23 History loratadine 10 mg capsule 10 mg PO DAILY PRN allergies 05/25/19 06/13/23 History trazodone 50 mg tablet 75 mg PO HS 05/25/19 06/13/23 History albuterol sulfate 90 mcg/actuation 2 puffs inhalation Q4H PRN 05/26/19 06/13/23 History aerosol inhaler (Ventolin HFA) Shortness Of Breath Portable Oxygen #1 ea 07/17/22 06/13/23 Rx guaifenesin 600 mg tablet, 600 mg PO BID 01/10/23 06/13/23 History extended release 12 hr (Mucinex) zinc sulfate 50 mg zinc (220 mg) 50 mg PO QAM 01/10/23 06/13/23 History tablet budesonide 0.5 mg/2 mL suspension 0.5 mg (2 mL) inhalation BID 30 01/14/23 1 08/14/22 Rx for nebulization days #120 mL formoterol fumarate 20 mcg/2 mL 20 mcg (2 mL) inhalation BIDR #120 01/14/23 06/13/23 Rx solution for nebulization mL (Perforomist) gabapentin 100 mg capsule 100 mg PO HS 04/29/23 06/13/23 History arformoterol 15 mcg/2 mL solution 15 mcg inhalation AMHS 06/13/23 06/13/23 History for nebulization aspirin 81 mg chewable tablet 81 mg PO [id number] 06/13/23 06/13/23 History docusate sodium 100 mg capsule 100 mg PO .EVERY AFTERNOON 06/13/23 06/13/23 History ipratropium 0.5 mg-albuterol 3 mg 3 ml inhalation Q6H PRN as directed 06/13/23 06/13/23 History (2.5 mg base)/3 mL nebulization soln lansoprazole 15 mg capsule,delayed 15 mg PO QAM 06/13/23 06/13/23 History release morphine concentrate 100 mg/5 mL 10 mg PO Q4 PRN Shortness Of Breath 06/13/23 06/13/23 History (20 mg/mL) oral solution multivitamin 1 tab PO DAILY 06/13/23 06/13/23 History tiotropium bromide 18 mcg capsule 1 cap inhalation QAM 06/13/23 06/13/23 History with inhalation device (Spiriva with HandiHaler) amoxicillin 875 mg-potassium 1 tab PO BIDM #11 tabs 06/15/23 Rx clavulanate 125 mg tablet azithromycin 250 mg tablet 250 mg PO MOWEFR COPD #18 tabs 06/15/23 Rx fluticasone propionate 50 2 spray intranasal DAILY #16 grams 06/15/23 Rx mcg/actuation nasal spray,suspension prednisone 20 mg tablet 40 mg (2 x 20 mg) PO DAILY #10 tabs 06/15/23 Rx pseudoephedrine HCl 30 mg tablet 30 mg PO TID #90 tabs 06/15/23 Rx (Sudafed) Hospital Stay Data Consultations 06/13/23 20:19 ED Decision to Admit Stat 06/14/23 08:00 Consult Pulmonology Routine Diagnostic Imagining Performed 06/13/23 13:41 CT head/brain wo con Stat Pending Results Patient Have Any Pending Studies at Discharge: No Discharge Instructions Given to Patient (Per Discharging Provider) You were admitted for hypoxia, or low oxygen levels. You were found to have an acute COPD exacerbation and acute sinus infection. For your acute sinusitis: Likely the etiology for your exacerbation. Continue decongestants (Sudafed three times a day and flonase daily) You were started on a course of Augmentin for superimposed infection. Continue Augmentin, 1 tablet two times a day until prescription is completed Follow-up with ENT scheduled for next month For your acute exacerbation of COPD: Continue 40mg prednisone daily for 5 more days (next dose is tomorrow, 06/16) Continue budesonide, and Perforomist as well as as needed nebulized albuterol. Continue azithromycin 3 times a week for anti- inflammatory properties Please continue nocturnal AVAPS and follow-up with your DME company for replacement tubing, filters, and supplies. Goal oxygen saturations are around 90-92%, you do not need to target higher. Home Health Attestation I certify that this patient is under my care and that I, or a physicians assistant cook working with me, had a face to-face encounter that meets the home health [id number] encounter requirements with this patient. The encounter with the patient was in whole, or in part, for the following medical condition, which is the primary reason for home health care (list medical condition): I certify that, based on my findings, the following services are medically necessary home health services: My clinical findings support the need for the above services because: Further, I certify that my clinical findings support that this patient is homebound (i.e. absences from home require considerable and taxing effort and ar e for medical reasons or mu-ism services or infrequently or of short duration when for other reasons) because: Certification for Home Health Services: Based on the above findings, I certify that this patient is confined to the home and needs intermittent fci care, physical therapy and/or speech therapy or continues to need occupational therapy. The patient is under my care, and I have initiated the establishment of the plan of care. This patient will be followed by a physician who will periodically review the plan of care. Total Time Total Time Spent Total Time Spent (In Minutes): 55
[2023-06-15] MEDS: DOCUSATE SODIUM 100 MG CAP PO SCH (14:59)
== END 2023-06-15 16:31 | disposition hospice, home (50) | DRG 190 ==
LOC: ED 12:59 → 4W 22:29
DX: J96.22 Acute and chronic respiratory failure with hypercapnia; J96.21 Acute and chronic respiratory failure with hypoxia; H70.90 Unspecified mastoiditis, unspecified ear; J01.90 Acute sinusitis, unspecified; Z51.5 Encounter for palliative care; Z79.82 Long term (current) use of aspirin; Z66 Do not resuscitate; I10 Essential (primary) hypertension; J43.9 Emphysema, unspecified; Z99.81 Dependence on supplemental oxygen; E87.29 Other acidosis; Z88.8 Allergy status to other drugs, medicaments and biological substances; J44.1 Chronic obstructive pulmonary disease with (acute) exacerbation; M81.0 Age-related osteoporosis without current pathological fracture; Z88.5 Allergy status to narcotic agent; E86.0 Dehydration; R64 Cachexia; Z60.2 Problems related to living alone; Z68.1 Body mass index [BMI] 19.9 or less, adult; E11.42 Type 2 diabetes mellitus with diabetic polyneuropathy; E78.5 Hyperlipidemia, unspecified; Z87.891 Personal history of nicotine dependence